=== PATIENT | male | born 1970 | race Caucasian/White ===

== ENCOUNTER 2017-07-03 00:15 | Emergency (ER) | payer MEDICARE, SELFPAY ==
[2016-10-01 10:17] VITALS: BMI 27.0
[2017-07-03 00:15] VITALS: BP 147/100; PULSE 78; RESP 15; TEMP 36.6; BMI 26.8
[2017-07-03 00:52] LABS: Absolute Lymphocyte Count 2.36 X10^3/ul (0.83-4.51); Absolute Neutrophil Count 4.3 X10^3/uL (2.0-7.7); Basophil# 0.03 X10^3/uL; Basophil% 0.4 % (0-1); Eosinophil# 0.32 X10^3/uL; Eosinophils% 4.1 % (0-5); Hematocrit 44.1 % (40-54); Hemoglobin 14.8 g/dl (13.0-16.5); Lymphocyte # 2.36 X10^3/ul (4.0); Lymphocyte % 30.1 % (19-41); Mean Corp Hgb Conc 33.6 g/gl (32-36); Mean Corpuscular Hgb 29.9 pg (27.0-32.0); Mean Corpuscular Volume 89.1 fL (80-94); Mean Platelet Vol. 9.4 fl (6.2-12.0); Monocyte# 0.82 X10^3/uL; Monocyte% 10.4 % (0-10); Neutrophil # 4.27 X10^3/uL (2.7-7.7); Neutrophil % 54.4 % (47-70); Platelet Count 221 K/mm3 (150-450); RBC Distribution Width CV 13.5 % (11.6-14.6); Red Blood Count 4.95 M/mm3 (4.6-6.2); White Blood Count 7.9 K/mm3 (4.4-11.0)
[2017-07-03 00:54] LABS: POSITIVE COUNT NO; POSITIVE DIFFERENTIAL NO; POSITIVE MORPHOLOGY NO
[2017-07-03 01:07] LABS: Anion Gap 7 (5-15); BUN 18 mg/dL (7-18); BUN/Creat Ratio 10.3 RATIO (10-20); Calcium,Total 8.8 mg/dL (8.5-10.1); Chloride 109 mmol/L (98-107); Creatinine, Serum 1.75 mg/dL (0.70-1.30); EST Glomerular Filtration Rate 44 mL/min (>60); Est Glom Filt Rate - Afr Amer 54 mL/min (>60); Estimated Creatinine Clearance 57.71 ml/min; Glucose 157 mg/dL (74-106); Potassium 3.7 mmol/L (3.5-5.1); Sodium Level 140 mmol/L (136-145)
[2017-07-03 01:10] LABS: Bacteria 0 SEEN /hpf (None Seen); Mucous, Urine 0 SEEN /hpf (<or=2+); Squamous Epithelial Cells - UA 0 SEEN /hpf (0-5)
[2017-07-03 01:16] LABS: Color, Urine Amber (Yellow); Glucose, Dipstick Normal (Normal); Ketone-Dipstick Negative (Negative); Leukocyte Esterase-Dipstick 500 /ul (Negative); Nitrite-Dipstick Negative (Negative); Occult Blood-Urine 250 /ul (Negative); Protein-Dipstick 100 mg/dl (Negative); Urine Bilirubin Dipstick Negative (Negative); Urine Clarity Sl. Cloudy (Clear); Urine Urobilinogen Normal (Normal)
[2017-07-03 01:23] LABS: Red Blood Cells-Urine 25-50 SEEN /hpf (0-5); White Blood Cells 5-10 SEEN /hpf (0-5)
--- NOTE | 2017-07-03 02:11 | ED.VISSUMM ---
- ER Visit Summary Date of Service: 07/03/17 Chief Complaint: Hematuria History of Present Illness: The patient is a 47 M who self cath secondary to neurogenic bladder presents because of hematuria. Hematuria was noted today. He denies any discomfort, burning or irritation when he caths himself. He denies any sweats or documented fever. He states he felt warm and believe he had a subjective fever. He denies bruising easily. He is on aspirin and Brilinta. He had a recent ST elevation [place]. 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 Enrrique Suarez. He denies any visual, ocular or auditory symptoms. He denies chest pain or palpitation. He denies shortness of breath, cough and dyspnea on exertion. He denies abdominal pain, nausea, vomiting or diarrhea. His only urologic symptom is hematuria. He denies any myalgias, arthralgias or neck pain. He does complain of back pain. Physical Examination: Vital signs remarkable blood pressure 147 100. HEENT exam is remarkable facial droop on the left. Heart is regular without murmur, gallop or rub. S1 and S2 are normal. Lungs are clear to auscultation with good movement of air bilaterally. Abdomen is soft and nontender with multiple well-healed surgical scars. He reports he has bilateral inguinal hernia. Did not appreciate any obvious hernia. Equivocal CVA tenderness on the left. states he has inflammation of his back. On my visualization the back there is no asymmetry or evidence of any abnormality. He has no inguinal lymphadenopathy or inguinal tenderness. He is alert oriented with a nonfocal neurologic exam Test Results: CBC normal creatinine 1.75 with a GFR 44. Baseline is 1.77 on April 07, 2017. Urinalysis reveals 250 blood on macro and 25-50 RBCs on micro without bacteria or pyuria. Emergency Department Course and Treatment: To evaluate gross hematuria a UA and blood work was obtained. This may be secondary to self-catheterization and the fact that he is on Brilinta and aspirin. Also need to evaluate for infection. Treatment Plan: Up with Dr. Duarte his urologist and return if clots, bright red blood or obstruction secondary to hematuria with clots Disposition: Discharged to home with Impression: Gross hematuria History of hypertension History of end-stage renal disease History of coronary disease on aspirin and Brilinta History of neurogenic bladder This note was generated with Pixateation software. It may contain incorrect words, spelling, and punctuation that were not noted in review of the chart prior to signing ED Disposition - Plan for ED Patient: Disposition: Home or Assisted Living Chief Complaint: Complaint Instructions: ED Hematuria Referrals: Brennan Ty MD [Primary Care Provider] - As Needed German Quiñones MD [STAFF PHYSICIAN] - 3-5 Days if not improving
--- NOTE | 2017-07-03 02:21 | ED.DCSUM_ITS ---
- ER Visit Summary Date of Service: 07/03/17 Chief Complaint: Hematuria History of Present Illness: The patient is a 47 M who self cath secondary to neurogenic bladder presents because of hematuria. Hematuria was noted today. He denies any discomfort, burning or irritation when he caths himself. He denies any sweats or documented fever. He states he felt warm and believe he had a subjective fever. He denies bruising easily. He is on aspirin and Brilinta. He had a recent ST elevation [place]. 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 Enrrique Suarez. He denies any visual, ocular or auditory symptoms. He denies chest pain or palpitation. He denies shortness of breath, cough and dyspnea on exertion. He denies abdominal pain, nausea, vomiting or diarrhea. His only urologic symptom is hematuria. He denies any myalgias, arthralgias or neck pain. He does complain of back pain. Physical Examination: Vital signs remarkable blood pressure 147 100. HEENT exam is remarkable facial droop on the left. Heart is regular without murmur, gallop or rub. S1 and S2 are normal. Lungs are clear to auscultation with good movement of air bilaterally. Abdomen is soft and nontender with multiple well-healed surgical scars. He reports he has bilateral inguinal hernia. Did not appreciate any obvious hernia. Equivocal CVA tenderness on the left. states he has inflammation of his back. On my visualization the back there is no asymmetry or evidence of any abnormality. He has no inguinal lymphadenopathy or inguinal tenderness. He is alert oriented with a nonfocal neurologic exam Test Results: CBC normal creatinine 1.75 with a GFR 44. Baseline is 1.77 on April 07, 2017. Urinalysis reveals 250 blood on macro and 25-50 RBCs on micro without bacteria or pyuria. Emergency Department Course and Treatment: To evaluate gross hematuria a UA and blood work was obtained. This may be secondary to self-catheterization and the fact that he is on Brilinta and aspirin. Also need to evaluate for infection. Treatment Plan: Up with Dr. Duarte his urologist and return if clots, bright red blood or obstruction secondary to hematuria with clots Disposition: Discharged to home with Impression: Gross hematuria History of hypertension History of end-stage renal disease History of coronary disease on aspirin and Brilinta History of neurogenic bladder This note was generated with IASO Pharmaation software. It may contain incorrect words, spelling, and punctuation that were not noted in review of the chart prior to signing ED Disposition - Plan for ED Patient: Disposition: Home or Assisted Living Chief Complaint: Complaint Instructions: ED Hematuria Referrals: Brennan Ty MD [Primary Care Provider] - As Needed German Quiñones MD [STAFF PHYSICIAN] - 3-5 Days if not improving
[2017-07-03 02:42] VITALS: BP 133/96; PULSE 67; RESP 17; O2SAT 97
--- NOTE | 2017-07-03 02:43 | ED.RN ---
PT GIVEN WRITTEN AND VERBAL DISCHARGE INSTRUCTIONS. PT VERBALIZES UNDERSTANDING. IV D/C AND COVERED WITH 2X2 GAUZE DRESSING. PT AMBULATORY HOME WITH SPOUSE. PT SIGNED RELEASE OF INFORMATION SHEET AND GOT A COPY OF LAB WORK. PT TO SEE DR. BAZAN WITHIN THE WEEK AND RETURN TO ER WITH ANY WORSENING SX OR ANY FURTHER EMERGENCIES.
== END 2017-07-03 02:45 | disposition home or self-care (01) ==
PROVIDERS: Emergency Provider Emergency Medicine; Family Provider Family Medicine; PCP Family Medicine
DX: R31.0 Gross hematuria (principal); I12.0 Hypertensive chronic kidney disease with stage 5 chronic kidney disease or end stage renal disease; N18.6 End stage renal disease; I25.10 Atherosclerotic heart disease of native coronary artery without angina pectoris; N31.9 Neuromuscular dysfunction of bladder, unspecified; E78.00 Pure hypercholesterolemia, unspecified; M10.9 Gout, unspecified; I25.2 Old myocardial infarction; Z72.0 Tobacco use; Z79.82 Long term (current) use of aspirin; K40.20 Bilateral inguinal hernia, without obstruction or gangrene, not specified as recurrent
CPT/HCPCS: 80048; 81001; 85025; 99284; P9612; A4216

== ENCOUNTER → 2017-07-07 17:38 | Outpatient (CLI) | payer SELFPAY ==
[2016-10-01 10:17] VITALS: BMI 27.0
--- NOTE | 2017-07-07 | CYSPIN_PTH ---
PATIENT: MARY TAYLOR LOC: [facility] U#:[id number] AGE/SX: 54/M ROOM: RE07/07/[address]: Dr. German Quiñones MD : 1970 BED: DIS: SPEC #: [id number] RECD: 07/07/17 13:00 STATUS: BRYSON SHARAN #: [id number] MULU: 07/07/17 00:[address]: German Quiñones DEPT: CYTOLOGY RECD BY: Milad Stark ENTERED: 07/08/17 11:23 SP TYPE: CYSPIN FL OTHR DR: Dr. Brennan Ty MD Tissues: Urine Procedures: Pap Stain (control) Special Stain Group II Cytospin Fluid HEADER OPERATION: Not noted PRE-OP DIAGNOSIS: Hematuria R31.9 TISSUE SUBMITTED: Urine for cytology DIAGNOSIS CYTOLOGY Urine for cytology (cytospin): Negative for malignant cells. Abundant bacterial colonies. Rare fungal organisms consistent with keon. AM:rg 07/09/17 COMMENT Clinical correlation is suggested. CYTOLOGY STUDY Slides are reviewed. CYTOLOGY GROSS Received is 80 ml of clear yellow fluid labeled with the patient's name and and designated per the requisition as urine. Submitted for cytology preparation. / 07/08/17 TC:5 CPT: 94644
[2017-07-07 17:40] LABS: Cytology, Body Fluid / CSF SEE PATHOLOGY REPORT
== END ==
PROVIDERS: Family Provider Family Medicine; PCP Family Medicine; Visit Provider Urology
DX: R31.9 Hematuria, unspecified (principal)
CPT/HCPCS: 88108; 88313

== ENCOUNTER 2017-07-10 15:12 | Emergency (ER) | payer MEDICARE, SELFPAY ==
[2016-10-01 10:17] VITALS: BMI 27.0
[2017-07-10 15:13] VITALS: BP 161/110; PULSE 90; RESP 25; TEMP 37.2; O2SAT 96; BMI 29.5
--- NOTE | 2017-07-10 15:20 | CT_ITS ---
STUDY: CT ABDOMEN AND PELVIS WITHOUT CONTRAST REASON FOR EXAM: Male, 47 years old. Bilateral flank pain. Recent cystoscopy neurogenic bladder RADIATION DOSAGE (If Supplied By Facility): CTDIvol = ( 11.95 ) mGy, DLP = ( 773.22 ) mGycm TECHNIQUE: Transaxial images were obtained from the dome of the diaphragm to the symphysis pubis without oral contrast, and without intravenous contrast. Sagittal and coronal images were reconstructed. Individualized dose optimization techniques were used for this CT. COMPARISON: April 27, 2016 FINDINGS: Lower lung atelectasis. The visualized portions of the heart are within normal limits. There is decreased attenuation of the liver consistent with steatosis. Normal gallbladder and extrahepatic biliary system. Normal spleen. Normal pancreas. Normal bilateral adrenal glands. There is mild cortical atrophy of the right kidney, consistent with chronic medical renal disease. There is mild cortical atrophy of the left kidney, consistent with chronic medical renal disease. There is increased density debris or small stones at the upper pole calyx. There is severe bilateral hydronephrosis. The ureters are dilated with postoperative change of the mid and distal ureters. There is displacement of the ureters with focal ileal conduit and/or reconstruction of the bladder. Normal visualized stomach. No dilated loops of small intestine. Postoperative change involving bowel loops on the right side Normal colon. There is non-visualization of the appendix. There is atherosclerotic calcification of the abdominal aorta, without a demonstrated aneurysm. Normal inferior vena cava. Normal retroperitoneum. There is a Bennett catheter in the urinary bladder. There is no free fluid in the abdomen or pelvis. Postoperative changes of the abdominal wall. Normal osseous structures. CT/Abdomen/Pelvis without Cont IMPRESSION: Severe bilateral hydroureteronephrosis with postoperative change including ileal conduit and/or reconstruction of the bladder. The ureters are dilated to the distal aspect at the level of postoperative change suspicious for stenosis at the anastomosis. Electronically Signed: Fidel Harper MD at 17:00 EST , Service support ,
--- NOTE | 2017-07-10 15:29 | ED.VISSUMM ---
- ER Visit Summary Date of Service: 07/10/17 Chief Complaint: [] Bilateral flank pain urinary retention History of Present Illness: The patient is a 47 M [] hx of neurogenic bladder childhood had diversion surgery as a child, had been that reversed, and then as an adult had additional bladder surgery involving his intestines he reports to expand his bladder volume. He normally straight caths himself without difficulty, he indicates he had a cystoscopy by Dr. Reece his urologist this morning for evaluation of dysuria that procedure was uncomplicated and did not explain the hematuria it was decided his hematuria was likely related to the use of Brilinta. He is on Brilinta related to an [place]. When he went home he felt the urge to void he straight cath himself nothing came out he did a Valsalva type push maneuver to force the urine out and began experiencing bilateral flank pain he did not have any urine come out, he has not voided urine since the cystoscopy otherwise before all the above he was not ill or having pain Physical Examination: [] Holding both flanks walking around room complaining of pain head neck chest unremarkable some vague pain to the bilateral flanks he indicates his bladder seems distended there is some fullness in suprapubic area he has an old surgical scars to the anterior abdominal region, he is awake alert again walking around the room Test Results: [] Emergency Department Course and Treatment: [] As if he needs to void we will provide IV pain management fluids Bennett catheter irrigation screening labs The patient's Bennett catheter was placed without difficulty was productive of no urine was irrigated there was no blood, his labs reveal a creatinine of 2.0 creatinine 1 week ago was 1.75 CT scan report is rather complicated please see that report, it shows bilateral hydronephrosis severe hydroureter Bennett catheter is in the bladder there appears to be stenosis at the insertion of the transplanted ureters With his urologist Dr. Reece, coming in to see the patient but believes the patient would need to be transferred emergently to [facility] to have bilateral percutaneous drainage of both kidneys, as discussed with the patient and he agrees and understands, further we have called [facility] to make arrangements for transfer. Dr. Reece, his urologist did come in and see him spoke with the patient, afterwards he recommends that the patient be transferred to [facility] due to the possibility of the ureteral stenosis the potential need for surgery. I spoke with [facility] urology Dr. Chen time I discussed the case and all details, who accepted him in transfer Treatment Plan: [] Disposition: [] Transfer to [facility] Impression: [] BiLateral hydronephrosis with urinary obstruction elevated creatinine transfer to [facility] urology for definitive treatment This note was generated with Mashable dictation software. It may contain incorrect words, spelling, and punctuation that were not noted in review of the chart prior to signing ED Disposition - Plan for ED Patient: Chief Complaint: Flank Pain Referrals: Brennan Ty MD [Primary Care Provider] -
--- NOTE | 2017-07-10 15:32 | ED.DCSUM_ITS ---
- ER Visit Summary Date of Service: 07/10/17 Chief Complaint: [] Bilateral flank pain urinary retention History of Present Illness: The patient is a 47 M [] hx of neurogenic bladder childhood had diversion surgery as a child, had been that reversed, and then as an adult had additional bladder surgery involving his intestines he reports to expand his bladder volume. He normally straight caths himself without difficulty, he indicates he had a cystoscopy by Dr. Reece his urologist this morning for evaluation of dysuria that procedure was uncomplicated and did not explain the hematuria it was decided his hematuria was likely related to the use of Brilinta. He is on Brilinta related to an [place]. When he went home he felt the urge to void he straight cath himself nothing came out he did a Valsalva type push maneuver to force the urine out and began experiencing bilateral flank pain he did not have any urine come out, he has not voided urine since the cystoscopy otherwise before all the above he was not ill or having pain Physical Examination: [] Holding both flanks walking around room complaining of pain head neck chest unremarkable some vague pain to the bilateral flanks he indicates his bladder seems distended there is some fullness in suprapubic area he has an old surgical scars to the anterior abdominal region, he is awake alert again walking around the room Test Results: [] Emergency Department Course and Treatment: [] As if he needs to void we will provide IV pain management fluids Bennett catheter irrigation screening labs The patient's Bennett catheter was placed without difficulty was productive of no urine was irrigated there was no blood, his labs reveal a creatinine of 2.0 creatinine 1 week ago was 1.75 CT scan report is rather complicated please see that report, it shows bilateral hydronephrosis severe hydroureter Bennett catheter is in the bladder there appears to be stenosis at the insertion of the transplanted ureters With his urologist Dr. Reece, coming in to see the patient but believes the patient would need to be transferred emergently to [facility] to have bilateral percutaneous drainage of both kidneys, as discussed with the patient and he agrees and understands, further we have called [facility] to make arrangements for transfer. Dr. Reece, his urologist did come in and see him spoke with the patient, afterwards he recommends that the patient be transferred to [facility] due to the possibility of the ureteral stenosis the potential need for surgery. I spoke with [facility] urology Dr. Chen time I discussed the case and all details, who accepted him in transfer Treatment Plan: [] Disposition: [] Transfer to [facility] Impression: [] BiLateral hydronephrosis with urinary obstruction elevated creatinine transfer to [facility] urology for definitive treatment This note was generated with Fablistic dictation software. It may contain incorrect words, spelling, and punctuation that were not noted in review of the chart prior to signing ED Disposition - Plan for ED Patient: Chief Complaint: Flank Pain Referrals: Brennan Ty MD [Primary Care Provider] -
[2017-07-10] MEDS: 0.9% Normal Saline 1,000 ML 250 ML IV (15:37)
[2017-07-10] MEDS: Ondansetron 4 MG/2 ML Vial IV (15:37)
[2017-07-10 15:54] LABS: Absolute Lymphocyte Count 2.69 X10^3/ul (0.83-4.51); Absolute Neutrophil Count 4.9 X10^3/uL (2.0-7.7); Basophil# 0.04 X10^3/uL; Basophil% 0.4 % (0-1); Eosinophil# 0.36 X10^3/uL; Hematocrit 46.2 % (40-54); Hemoglobin 15.4 g/dl (13.0-16.5); Lymphocyte # 2.69 X10^3/ul (4.0); Lymphocyte % 30.1 % (19-41); Mean Corp Hgb Conc 33.3 g/gl (32-36); Mean Corpuscular Hgb 30.2 pg (27.0-32.0); Mean Corpuscular Volume 90.6 fL (80-94); Mean Platelet Vol. 9.5 fl (6.2-12.0); Monocyte# 0.88 X10^3/uL; Monocyte% 9.9 % (0-10); Neutrophil # 4.91 X10^3/uL (2.7-7.7); Platelet Count 243 K/mm3 (150-450); RBC Distribution Width CV 13.3 % (11.6-14.6); RBC Distribution Width SD 44.2 fl (35.1-43.9); White Blood Count 8.9 K/mm3 (4.4-11.0)
[2017-07-10 15:55] LABS: POSITIVE COUNT NO; POSITIVE DIFFERENTIAL NO; POSITIVE MORPHOLOGY NO
[2017-07-10 16:01] LABS: Anion Gap 5 (5-15); BUN 21 mg/dL (7-18); BUN/Creat Ratio 10.2 RATIO (10-20); Calcium,Total 9.1 mg/dL (8.5-10.1); Chloride 104 mmol/L (98-107); Creatinine, Serum 2.05 mg/dL (0.70-1.30); EST Glomerular Filtration Rate 37 mL/min (>60); Est Glom Filt Rate - Afr Amer 45 mL/min (>60); Estimated Creatinine Clearance 49.26 ml/min; Glucose 102 mg/dL (74-106); Potassium 4.1 mmol/L (3.5-5.1); Sodium Level 140 mmol/L (136-145)
[2017-07-10 16:42] VITALS: BP 165/95; PULSE 65; RESP 16; O2SAT 98
--- NOTE | 2017-07-10 17:00 | ED.RN ---
[address] WAY BELLA PLACED PER MD ORDER, NO URINE RETURN. FLUSHED WITH 250 ML STERILE WATER, 250 ML RETURN IN BELLA BAG WITH SEDIMENT AND SMALL BLOOD CLOTS. PT STATES CATHETER FEELS LIKE IT'S IN THE RIGHT PLACE. BLADDER SCANNED FOR 85 ML URINE. LAST URINE OUTPUT AT APPROX 1200. MD MADE AWARE OF FINDINGS.
[2017-07-10 17:30] VITALS: BP 156/98; PULSE 69; RESP 16; O2SAT 98
--- NOTE | 2017-07-10 17:59 | ED.RN ---
PER DR MARTINEZ [facility] WAS CALLED TO TRANSFER PT. SPOKE WITH MEGAN AND HE WILL BE HAVING THE DOCTOR CALL US BACK; DEMOGRAPHIC SHEET WAS FAXED
--- NOTE | 2017-07-10 18:12 | ED.RN ---
PER DR MARTINEZ; PT WAS ACCEPTED TO THE [facility] BY DOCTOR LOPEZ; WE ARE WAITING ON A BED ASSIGNMENT
[2017-07-10 18:26] VITALS: BP 157/91; PULSE 78; RESP 16; O2SAT 98
[2017-07-10 19:02] VITALS: BP 156/74; PULSE 81; RESP 16; O2SAT 97
[2017-07-10 19:03] VITALS: BP 152/81; PULSE 78; RESP 16; O2SAT 97
== END 2017-07-10 20:45 | disposition short-term general hospital (02) ==
PROVIDERS: Emergency Provider Emergency Medicine; Family Provider Family Medicine; PCP Family Medicine
DX: N13.1 Hydronephrosis with ureteral stricture, not elsewhere classified (principal); I25.2 Old myocardial infarction; N31.9 Neuromuscular dysfunction of bladder, unspecified
CPT/HCPCS: 51702; 74176; 80048; 85025; 87086; 87088; 96361; 96374; 96375; 96376; 99285; J7030; A4216; J2405

== ENCOUNTER → 2017-07-10 16:49 | Outpatient (CLI) | payer MEDICARE, SELFPAY ==
[2016-10-01 10:17] VITALS: BMI 27.0
== END ==
PROVIDERS: Family Provider Family Medicine; PCP Family Medicine; Visit Provider Urology
DX: R31.0 Gross hematuria (principal)
CPT/HCPCS: 87086; 87088

== ENCOUNTER 2017-07-16 23:10 | Emergency (ER) | payer MEDICARE, SELFPAY ==
[2016-10-01 10:17] VITALS: BMI 27.0
[2017-07-16 23:12] VITALS: BP 168/100; PULSE 68; RESP 18; TEMP 37.3; O2SAT 97; BMI 29.5
--- NOTE | 2017-07-17 00:13 | ED.VISSUMM ---
- ER Visit Summary Date of Service: 07/17/17 Chief Complaint: Bleeding tunneled catheter History of Present Illness: The patient is a 47 M presenting for evaluation secondary to bleeding from his tunnel catheter. Patient was recently admitted to this facility, had renal failure severe enough that he was transferred to [place], and was actually just discharged today. Patient states prior to discharge he had a tunneled catheter placed in his right chest secondary to staph bacteremia and need for continued antibiotic treatment. Patient states that when he came home today he started to notice that he was having some bleeding. Patient does state that he is on Brilinta. He reports only postprocedural pain. Review of systems otherwise negative. Physical Examination: Vital signs within normal limits. Physical exam remarkable for examination of the patient's right anterior chest. There is a tunnel catheter placed that is sutured in place. There is a mild amount of capillary bleeding coming from the insertion point of the catheter on the patient's chest. Minimal amount of bruising and tenderness to palpation in the area. Test Results: None indicated Emergency Department Course and Treatment: Patient presented with bleeding from his tunneled catheter site. This is a mild amount of bleeding, I am not concerned for significant venous bleed this appears to be more of a capillary type bleed. Bandage was replaced and the patient's chest was actually wrapped with an Gregorio bandage to apply some pressure over the area. Patient had better hemostasis and actually a little bit better pain control with this. Patient was discharged with continued follow-up. Disposition: Discharge Impression: 1. Postprocedural bleeding This note was generated with Curriculet dictation software. It may contain incorrect words, spelling, and punctuation that were not noted in review of the chart prior to signing ED Disposition - Plan for ED Patient: Disposition: Home or Assisted Living Chief Complaint: Wound Diagnosis: Bleeding at insertion site Instructions: ED Wound Check Post Op Bleeding Referrals: Brennan Ty MD [Primary Care Provider] - As Needed
[2017-07-17 00:21] VITALS: RESP 18
== END 2017-07-17 00:24 | disposition home or self-care (01) ==
PROVIDERS: Emergency Provider Emergency Medicine; Family Provider Family Medicine; PCP Family Medicine
DX: I97.618 Postprocedural hemorrhage of a circulatory system organ or structure following other circulatory system procedure (principal); Y84.6 Urinary catheterization as the cause of abnormal reaction of the patient, or of later complication, without mention of misadventure at the time of the procedure; R78.81 Bacteremia; B95.8 Unspecified staphylococcus as the cause of diseases classified elsewhere
CPT/HCPCS: 99284

== ENCOUNTER → 2017-07-17 14:22 | Outpatient (CLI) | payer MEDICARE, SELFPAY ==
[2016-10-01 10:17] VITALS: BMI 27.0
--- NOTE | 2017-07-17 14:45 | NURSING ---
PT ARRIVED TO [facility] W/PICC IN PLACE TO RIGHT SUBCLAVIAN. NOTED SLOW OOZING OF BLOOD FROM PICC INSERTION SITE. PT REPORTS HE WAS IN ED LAST EVENING D/T BLEEDING FROM INSERTION SITE AND THAT IT STARTED BLEEDING AGAIN THIS AM. PT ALSO STATED HIS [facility] HEALTH [facility] AND INSTRUCTED HIM TO COME TO HOSPITAL. PICC INTACT. FLUSHES EASILY AND WITH GREAT BLOOD RETURN. SUTURES INTACT. PRESSURE HELD TO INSERTION SITE X 30 MIN. NO FURTHER BLEEDING OR OOZING NOTED. STERILE DSG CHANGE DONE ORDERED. PER RN HENRY DAMIAN, DR WALLER WAS NOTIFIED OF ISSUES OF BLEEDING/ OOZING FROM PICC INSERTION SITE W/NO FURTHER BLEEDING AFTER 30 MIN AND THAT ABSORBABLE HEMOSTAT WAS APPLIED W/STERILE DSG CHANGE. NO FURTHER ORDERS RECEIVED. DR SPENCER WAS ALSO NOTIFIED THAT PT WAS IN ED LAST PM D/T OOZING OF BLOOD FROM PICC INSERTION SITE AND THAT IT STARTED BLEEDING AGAIN THIS AM, THAT ABD PADS AND GAUZE WERE SATURATED PER HOME HEALTH NURSE AND THAT PRESSURE WAS HELD X 30 MIN BY THIS RN AND NO FURTHER BLEEDING OR OOZING NOTED. DR SPENCER GAVE ORDER TO THIS RN TO INSTRUCT PT TO HOLD BRILINTA X 5 DAYS AND THEN RESUME LONG NO FURTHER BLEEDING OR OOZING FROM PICC INSERTION SITE. THIS RN ASKED DR SPENCER IF HE WOULD LIKE ANY LABS DRAWN ON PT AND HE STATED DID NOT WANT ANY LABS DRAWN AT THIS TIME. PT INSTRUCTED TO HOLD THE BRILINTA X [address] SPENCER ORDER AND TO THEN RESUME LONG NO FURTHER BLEEDING OR OOZING NOTED. PT ALSO MADE AWARE TO FOLLOW UP W/DR SPENCER. PT AND VOICED UNDERSTANDING. THIS NURSE ALSO INSTRUCTED PT AND FOR PT TO GO TO ED IF HAS ANY FURTHER ISSUES W/BLEEDING OR OOZING FROM PICC INSERTION SITE. PT AND VOICED UNDERSTANDING. ATTENTIVE HOME HEALTH NURSE, ASIYA, NOTIFIED OF ALL OF THE ABOVE.
--- NOTE | 2017-07-17 20:08 | NURSING ---
PRINTED FACE SHEET FOR IVT.
== END ==
PROVIDERS: Family Provider Family Medicine; PCP Family Medicine; Visit Provider Internal Medicine Infectious Disease
DX: Z45.2 Encounter for adjustment and management of vascular access device (principal)
CPT/HCPCS: 99211; A4216; G0463

== ENCOUNTER → 2017-07-21 14:03 | Outpatient (CLI) | payer MEDICARE, SELFPAY ==
[2016-10-01 10:17] VITALS: BMI 27.0
[2017-07-21 15:53] LABS: Absolute Lymphocyte Count 1.68 X10^3/ul (0.83-4.51); Basophil# 0.05 X10^3/uL; Basophil% 0.5 % (0-1); Eosinophil# 0.36 X10^3/uL; Eosinophils% 3.7 % (0-5); Hematocrit 44.5 % (40-54); Hemoglobin 14.1 g/dl (13.0-16.5); Lymphocyte # 1.68 X10^3/ul (4.0); Lymphocyte % 17.1 % (19-41); Mean Corp Hgb Conc 31.7 g/gl (32-36); Mean Corpuscular Hgb 29.6 pg (27.0-32.0); Mean Corpuscular Volume 93.3 fL (80-94); Mean Platelet Vol. 9.4 fl (6.2-12.0); Monocyte# 0.54 X10^3/uL; Monocyte% 5.5 % (0-10); Neutrophil # 7.01 X10^3/uL (2.7-7.7); Neutrophil % 71.4 % (47-70); Platelet Count 332 K/mm3 (150-450); RBC Distribution Width CV 13.6 % (11.6-14.6); Red Blood Count 4.77 M/mm3 (4.6-6.2); White Blood Count 9.8 K/mm3 (4.4-11.0)
[2017-07-21 15:54] LABS: POSITIVE COUNT NO; POSITIVE DIFFERENTIAL NO; POSITIVE MORPHOLOGY NO
[2017-07-21 16:02] LABS: Creatinine, Serum 1.86 mg/dL (0.70-1.30); EST Glomerular Filtration Rate 41 mL/min (>60); Est Glom Filt Rate - Afr Amer 50 mL/min (>60)
[2017-07-21 16:03] LABS: Vancomycin, Trough Level 11.3 ug/mL (5.0-15.0)
== END ==
LOC: LAB 14:06 → LABSPEC 14:07
PROVIDERS: Family Provider Family Medicine; PCP Family Medicine; Visit Provider Internal Medicine Infectious Disease
DX: R69 Illness, unspecified (principal)
CPT/HCPCS: 80202; 82565; 85025

== ENCOUNTER → 2017-07-29 19:19 | Outpatient (CLI) | payer MEDICARE, SELFPAY ==
[2016-10-01 10:17] VITALS: BMI 27.0
== END ==
PROVIDERS: Family Provider Family Medicine; PCP Family Medicine; Visit Provider Internal Medicine Infectious Disease
DX: A41.9 Sepsis, unspecified organism (principal)
CPT/HCPCS: 87040

== ENCOUNTER 2017-08-31 00:33 | Observation (INO) | payer MEDICARE, SELFPAY ==
[2016-10-01 10:17] VITALS: BMI 27.0
[2017-08-31] VITALS (17 sets, daily range): BP systolic 112–140; BP diastolic 68–96; PULSE 52–71; RESP 9–18; TEMP 35.9–37.2; O2SAT 94–100; BMI 30.9; BMI 28.5
--- NOTE | 2017-08-31 00:40 | CT_ITS ---
STUDY: CT BRAIN WITHOUT CONTRAST REASON FOR EXAM: Male, 47 years old. Recent syncope with closed head injury and possible loss of consciousness. RADIATION DOSAGE (If Supplied By Facility): CTDIvol = ( 44.99 ) mGy, DLP = ( 883.29 ) mGycm TECHNIQUE: Transaxial CT imaging of the brain was performed without administration of intravenous contrast material. Multiplanar reformations are submitted for interpretation. Individualized dose optimization techniques were used for this CT. COMPARISON: MRI of the brain dated June 07, 2015. FINDINGS: Appears to be soft tissue contusion adjacent to left lateral frontal and temporal craniotomy. Normal calvarium. Normal size ventricles and extra-axial spaces for the patient's age. Normal white matter tracts of the cerebral hemispheres. Normal basal ganglia and thalami. Normal brainstem. Normal cerebellum. There is no intracranial hemorrhage. There are no findings of an acute ischemic infarction. Normal visualized paranasal sinuses. CT/Brain/Head without Contrast IMPRESSION: 1. No CT evidence of acute intracranial hemorrhage. 2. Left-sided scalp contusion. Electronically Signed: Keara Gambino MD at 1:36 EDT , Service support ,
--- NOTE | 2017-08-31 00:40 | EKG12_ITS ---
Test Reason : CP Blood Pressure : / mmHG Vent. Rate : 062 BPM Atrial Rate : 062 BPM P-R Int : 154 ms QRS Dur : 084 ms QT Int : 386 ms P-R-T Axes : 039 076 058 degrees QTc Int : 391 ms Normal sinus rhythm Normal ECG Confirmed by MOISES ROBERTS, MARGIE ([id number]), international editorial producer BANDAR CARSON ([id number]) on 09/02/2017 2:07:56 PM Referred By: MILA Confirmed By:MARGIE DE LEON MD
--- NOTE | 2017-08-31 00:40 | CT_ITS ---
STUDY: CT CERVICAL SPINE WITHOUT CONTRAST REASON FOR EXAM: Male, 47 years old. Recent syncope and closed head injury. Possible loss of consciousness. RADIATION DOSAGE (If Supplied By Facility): CTDIvol = ( 27.27 ) mGy, DLP = ( 645.41 ) mGycm TECHNIQUE: High resolution transaxial imaging was performed without contrast material. Sagittal and coronal images were reconstructed. Individualized dose optimization techniques were used for this CT. COMPARISON: Prior comparable comparison studies are not available for review at this time. FINDINGS: Normal craniovertebral junction. There are degenerative changes of the anterior atlantoaxial articulation. Normal odontoid process. Normal cervical lordosis. Normal vertebral bodies and posterior osseous elements. C2-3: Normal endplates. Normal disc height and morphology. Normal central canal and intervertebral neuroforamina. C3-4: Normal endplates. Normal disc height and morphology. Normal central canal and intervertebral neuroforamina. C4-5: Normal endplates. Normal disc height and morphology. Normal central canal and intervertebral neuroforamina. C5-6: Normal endplates. Normal disc height and morphology. Normal central canal and intervertebral neuroforamina. C6-7: Normal endplates. Normal disc height and morphology. Normal central canal and intervertebral neuroforamina. C7-T1: Normal endplates. Normal disc height and morphology. Normal central canal and intervertebral neuroforamina. Normal visualized soft tissue structures. CT/Spine Cervical without Contras IMPRESSION: No CT evidence of acute compression or displaced fracture of the cervical spine. Electronically Signed: Keara Gambino MD at 1:29 EDT , Service support ,
--- NOTE | 2017-08-31 00:45 | CT_ITS ---
STUDY: CT ABDOMEN AND PELVIS WITHOUT CONTRAST REASON FOR EXAM: Male, 47 years old. Patient was found unresponsive after syncope and closed head injury. RADIATION DOSAGE (If Supplied By Facility): CTDIvol = ( 21.37 ) mGy, DLP = ( 1158.77 ) mGycm TECHNIQUE: Transaxial images were obtained from the dome of the diaphragm to the symphysis pubis without oral contrast, and without intravenous contrast. Sagittal and coronal images were reconstructed. Individualized dose optimization techniques were used for this CT. COMPARISON: CT of the abdomen and pelvis dated April 27, 2016 and July 10, 2017. FINDINGS: There is some mild pleural thickening on the left major fissure. Lung bases otherwise appear to be clear. The visualized portions of the heart are within normal limits. There is decreased attenuation of the liver consistent with steatosis. There is increased (more normal) attenuation within the liver adjacent to the gallbladder fossa and near the edis hepatis. This may represent focal sparing of fatty infiltration Normal gallbladder and extrahepatic biliary system. Normal spleen. Normal pancreas. Normal bilateral adrenal glands. There is mild cortical atrophy of the right kidney, consistent with chronic medical renal disease. There is dilatation of the renal collecting systems, similar to previous CTs. The proximal ureters appear to be conjoined proximally with a single ureter probably ends entering the ileal conduit. Left kidney is larger than the right kidney. Normal visualized stomach. There is no evidence for dilated bowel, ascites or pneumoperitoneum. The small bowel has a grossly normal appearance. Stool is visible throughout the colon with scattered colonic diverticula. Patient has had partial right-sided colon resection where surgical sutures are visible within the proximal ascending colon. There is non-visualization of the appendix. There is minimal atherosclerotic calcification of the abdominal aorta, without a demonstrated aneurysm. Normal inferior vena cava. Normal retroperitoneum. There appears to be bowel located cephalad to the the urinary bladder possibly related to ureteral-ileoostomy There appear to be bilateral inguinal hernias containing fat. Normal osseous structures. CT/Abdomen/Pelvis without Cont IMPRESSION: 1. Hepatic steatosis with focal sparing near the gallbladder fossa and near the edis hepatis. 2. Status post partial right-sided colon resection. 3. Apparent ureteral diversion with ileal conduit. 4. Unchanged appearance to dilatation of bilateral renal collecting systems. Electronically Signed: Keara Gambino MD at 1:51 EDT , Service support ,
[2017-08-31 00:49] LABS: Absolute Neutrophil Count 6.7 X10^3/uL (2.0-7.7); Basophil# 0.04 X10^3/uL; Basophil% 0.4 % (0-1); Eosinophil# 0.11 X10^3/uL; Eosinophils% 1.1 % (0-5); Hematocrit 41.2 % (40-54); Hemoglobin 13.3 g/dl (13.0-16.5); Lymphocyte % 22.8 % (19-41); Mean Corp Hgb Conc 32.3 g/gl (32-36); Mean Corpuscular Hgb 29.3 pg (27.0-32.0); Mean Corpuscular Volume 90.7 fL (80-94); Mean Platelet Vol. 8.9 fl (6.2-12.0); Monocyte# 0.62 X10^3/uL; Monocyte% 6.4 % (0-10); Neutrophil # 6.65 X10^3/uL (2.7-7.7); Neutrophil % 68.8 % (47-70); Platelet Count 245 K/mm3 (150-450); RBC Distribution Width CV 13.8 % (11.6-14.6); RBC Distribution Width SD 45.1 fl (35.1-43.9); Red Blood Count 4.54 M/mm3 (4.6-6.2); White Blood Count 9.7 K/mm3 (4.4-11.0)
--- NOTE | 2017-08-31 00:50 | RAD_ITS ---
STUDY: X-RAY CHEST REASON FOR EXAM: Male, 47 years old. Chest pain after fall. TECHNIQUE: Single AP portable view of the chest. COMPARISON: April 07, 2017. FINDINGS: Cardiac monitoring leads are present. The lungs are expanded. There is interstitial thickening visible throughout both lungs, similar to previous radiograph. There is no demonstrated pleural abnormality. Normal size heart. Normal mediastinum and jayde. Normal visualized pulmonary arteries. There is atherosclerotic tortuosity of the aortic arch and descending thoracic aorta. Normal visualized thoracic spine. Normal visualized ribs, clavicles, and shoulders. There is no demonstrated abnormality of the visualized soft tissue structures of the upper abdomen. RAD/Chest 1 View (Portable) IMPRESSION: No radiographic evidence of acute cardiopulmonary disease. Electronically Signed: Keara Gambino MD at 1:26 EDT , Service support ,
[2017-08-31 00:51] LABS: POSITIVE COUNT NO; POSITIVE DIFFERENTIAL NO; POSITIVE MORPHOLOGY NO
[2017-08-31 01:08] LABS: Anion Gap 6 (5-15); BUN 30 mg/dL (7-18); Calcium,Total 8.6 mg/dL (8.5-10.1); Chloride 108 mmol/L (98-107); Creatinine, Serum 2.15 mg/dL (0.70-1.30); EST Glomerular Filtration Rate 35 mL/min (>60); Est Glom Filt Rate - Afr Amer 42 mL/min (>60); Estimated Creatinine Clearance 46.97 ml/min; Glucose 183 mg/dL (74-106); Potassium 4.2 mmol/L (3.5-5.1); Sodium Level 139 mmol/L (136-145)
--- NOTE | 2017-08-31 02:41 | ED.VISSUMM ---
- ER Visit Summary Date of Service: 08/31/17 Chief Complaint: Unresponsive History of Present Illness: The patient is a 47 M presenting for evaluation secondary to being unresponsive. Patient has an underlying history of chronic kidney disease, coronary artery disease with [place] last year. Hypertension and high cholesterol. Patient states that he had a sudden onset of left-sided flank pain. He went into urinate. He has to self catheterize, he states that when he was attempting to do this he became profusely diaphoretic and passed out. states that the patient fell hit his head, and after he struck his head he had tonic-clonic shaking and loss of control of his bladder. Afterwards the patient had decreased responsiveness, paramedics arrived and brought the patient immediately to the hospital. Patient has no prior history of seizures. He is on antiplatelet medication secondary to his coronary disease. Physical Examination: Primary survey: Airway is patent, breath sounds equal bilateral, central peripheral pulses 2+ and symmetric, GCS 14 out of 15. Vitals within normal limits. Secondary survey: General: Well-nourished well-developed no acute distress Head: Normocephalic atraumatic Eyes: PERRLA, EOMI ENT: TMs clear no hemotympanum no drainage Neck: Nontender full range of motion, no step-offs noted Heart: Regular rate and rhythm no murmurs Lungs: Respirations nondistressed, lung sounds clear to auscultation bilaterally, chest nontender, normal chest excursion bilaterally Abdomen: Soft nontender nondistended normal bowel sounds no palpable abdominal masses, well-healed abdominal surgical scars noted Back: Nontender no step-offs noted Extremities: Nontender: Active full range of motion ?4 Skin: Normal color no trauma Neuro: Alert and oriented ?2, GCS 14 out of 15, no lateralizing neurological deficits. Test Results: Sinus rhythm at [address] segments normal T waves no evidence of acute ischemia or arrhythmia unchanged from prior EKG. CBC shows no acute pathology. Chemistry shows acute kidney injury with creatinine 2.1, troponin negative. Chest x-ray shows chronic changes. CT brain and cervical spine negative. CT abdomen and pelvis shows chronic changes consistent with patient's surgical history Emergency Department Course and Treatment: Patient presented secondary to an unresponsive episode with shaking and confusion that followed. Patient's EMS EKG was concerning for the possibility of ST elevation in the inferior leads, but his EKG upon arrival to the emergency department shows no such changes and the patient does not complaining of any chest pain. I immediately discussed patient's case with Dr. Suarez, and we are in agreement that given the patient's normalization of his EKG and the fact that he is no longer complaining of chest pain this does not need to be treated like a STEMI. Patient was evaluated secondary to the syncopal episode and apparent seizure. Imaging was found to be negative, the patient was found to have acute kidney injury and he was given a liter normal saline and a cervical collar was cleared. This point it seems like the patient had a vagal event, passed out, struck his head hard enough that he had a seizure with a full postictal episode. Given the patient's underlying cardiac disease I believe that he still requires admission for observation due to his syncope. Patient will be admitted under the hospitalist. Disposition: Admission Impression: 1. Vasovagal syncope 2. Acute kidney injury 3. Seizure Critical care time 45 minutes This note was generated with [employer] dictation software. It may contain incorrect words, spelling, and punctuation that were not noted in review of the chart prior to signing ED Disposition - Plan for ED Patient: Chief Complaint: Chest Pain Referrals: Brennan Ty MD [Primary Care Provider] -
--- NOTE | 2017-08-31 02:45 | ED.DCSUM_ITS ---
- ER Visit Summary Date of Service: 08/31/17 Chief Complaint: Unresponsive History of Present Illness: The patient is a 47 M presenting for evaluation secondary to being unresponsive. Patient has an underlying history of chronic kidney disease, coronary artery disease with [place] last year. Hypertension and high cholesterol. Patient states that he had a sudden onset of left-sided flank pain. He went into urinate. He has to self catheterize, he states that when he was attempting to do this he became profusely diaphoretic and passed out. states that the patient fell hit his head, and after he struck his head he had tonic-clonic shaking and loss of control of his bladder. Afterwards the patient had decreased responsiveness, paramedics arrived and brought the patient immediately to the hospital. Patient has no prior history of seizures. He is on antiplatelet medication secondary to his coronary disease. Physical Examination: Primary survey: Airway is patent, breath sounds equal bilateral, central peripheral pulses 2+ and symmetric, GCS 14 out of 15. Vitals within normal limits. Secondary survey: General: Well-nourished well-developed no acute distress Head: Normocephalic atraumatic Eyes: PERRLA, EOMI ENT: TMs clear no hemotympanum no drainage Neck: Nontender full range of motion, no step-offs noted Heart: Regular rate and rhythm no murmurs Lungs: Respirations nondistressed, lung sounds clear to auscultation bilaterally , chest nontender, normal chest excursion bilaterally Abdomen: Soft nontender nondistended normal bowel sounds no palpable abdominal masses, well-healed abdominal surgical scars noted Back: Nontender no step-offs noted Extremities: Nontender: Active full range of motion ?4 Skin: Normal color no trauma Neuro: Alert and oriented ?2, GCS 14 out of 15, no lateralizing neurological deficits. Test Results: Sinus rhythm at [address] segments normal T waves no evidence of acute ischemia or arrhythmia unchanged from prior EKG. CBC shows no acute pathology. Chemistry shows acute kidney injury with creatinine 2.1, troponin negative. Chest x-ray shows chronic changes. CT brain and cervical spine negative. CT abdomen and pelvis shows chronic changes consistent with patient's surgical history Emergency Department Course and Treatment: Patient presented secondary to an unresponsive episode with shaking and confusion that followed. Patient's EMS EKG was concerning for the possibility of ST elevation in the inferior leads, but his EKG upon arrival to the emergency department shows no such changes and the patient does not complaining of any chest pain. I immediately discussed patient's case with Dr. Suarez, and we are in agreement that given the patient' s normalization of his EKG and the fact that he is no longer complaining of chest pain this does not need to be treated like a STEMI. Patient was evaluated secondary to the syncopal episode and apparent seizure. Imaging was found to be negative, the patient was found to have acute kidney injury and he was given a liter normal saline and a cervical collar was cleared. This point it seems like the patient had a vagal event, passed out, struck his head hard enough that he had a seizure with a full postictal episode. Given the patient' s underlying cardiac disease I believe that he still requires admission for observation due to his syncope. Patient will be admitted under the hospitalist. Disposition: Admission Impression: 1. Vasovagal syncope 2. Acute kidney injury 3. Seizure Critical care time 45 minutes This note was generated with [employer] dictation software. It may contain incorrect words, spelling, and punctuation that were not noted in review of the chart prior to signing ED Disposition - Plan for ED Patient: Chief Complaint: Chest Pain Referrals: Brennan Ty MD [Primary Care Provider] -
[2017-08-31] MEDS: 0.9% Normal Saline 1,000 ML 999 ML IV (02:53)
[2017-08-31] MEDS: Aspirin 81 MG TAB.CHEW 324 MG PO (02:53)
--- NOTE | 2017-08-31 02:56 | PCM.HP.STD ---
Problem List (1) Syncope and collapse Status: Acute (2) Atypical chest pain Status: Acute (3) Chronic kidney disease, stage 3 Status: Chronic (4) History of coronary artery stent placement Status: Chronic Comment: PCI-HECTOR-Mid Cx (5) Atherosclerosis of coronary artery of [place] heart without angina pectoris Status: Chronic Comment: PCI-HECTOR-Mid Cx 09/29/16 (6) Sleep-disordered breathing Status: Chronic (7) NSVT (nonsustained ventricular tachycardia) Status: Chronic (8) Smoking addiction Status: Chronic (9) Hypertension Status: Chronic (10) Hyperlipidemia Status: Chronic (11) Osteoarthritis Status: Chronic (12) Spinal stenosis of lumbar region Status: Chronic (13) Chronic radicular lumbar pain Status: Chronic (14) STEMI (ST elevation myocardial infarction) Status: Chronic (15) Sciatica Status: Chronic (16) Acute kidney injury on CKD stage III Status: Acute History of Present Illness Date of Admission: 08/31/17 Chief Complaint: Syncope and collapse and chest pain today The patient is a 47 year old M with multiple comorbidities including history of NSTEMI status post PCI in mid circumflex and NSVT in September 2016 was brought in by ambulance after he passed out and had transient chest pain. Patient has been feeling feverish and chills for 1 day. While sitting in the bathroom for self-catheterization, he suddenly passed out, bent forward and hit his head on toilet seat. As per the , he had generalized shaking like seizure but he does not have history of epilepsy. After that he was groggy and lethargic. Initial EKG by EMS had ST elevation in V2 and V3 but no reciprocal changes. EMS vitals were within normal limit. ER physician discussed with Dr. Suarez and thought to be artifact. EKG here shows normal sinus rhythm at 62 bpm. First troponin negative. He also complained of left-sided renal angle pain which is chronic in nature but has been more pronounced and prominent for last 1 day. [] Basic labs are within baseline except creatinine which is high 2.15. Baseline is between 1.5-1.7. Patient has right renal atrophy and history of recurrent UTI from possible vesicoureteral reflux. He has been on chronic trimethoprim for 1 year by PCP. Past Medical History Past Medical History (Chronic Problems): Chronic Problems (Last Reviewed 05/12/17 @ 11:25 by Tamiko Cabrera) Chronic kidney disease, stage 3 (Chronic) History of coronary artery stent placement (Chronic ~09/29/16) PCI-HECTOR-Mid Cx Atherosclerosis of coronary artery of [place] heart without angina pectoris (Chronic) PCI-HECTOR-Mid Cx 09/29/16 Sleep-disordered breathing (Chronic) NSVT (nonsustained ventricular tachycardia) (Chronic) Smoking addiction (Chronic) Hypertension (Chronic) Hyperlipidemia (Chronic) Osteoarthritis (Chronic) Spinal stenosis of lumbar region (Chronic) Chronic radicular lumbar pain (Chronic) STEMI (ST elevation myocardial infarction) (Chronic) Sciatica (Chronic) Allergies sulfamethoxazole [From Bactrim] Allergy (Mild, Verified 08/31/17 00:37) Rash trimethoprim [From Bactrim] Allergy (Mild, Verified 08/31/17 00:37) Rash bupropion [From Wellbutrin] Adverse Reaction (Verified 08/31/17 00:37) Elevated BP Home Medications: Ambulatory Orders Medication Instructions Recorded Ergocalciferol [Vitamin D] 50,000 unit PO QMONTH 04/21/15 Escitalopram Oxalate [Lexapro] 5 mg PO DAILY 04/21/15 Fish Oil/Dha/Epa [Fish Oil 1,200 1 ea PO DAILY 04/21/15 mg Fish Oil] Allopurinol [Zyloprim] 100 mg PO DAILYCM 07/25/15 Hydrocodone Bitart/Apap 5-325 1 tab PO Q6H PRN PRN 07/25/15 [[place] 5/325] Trimethoprim 1 tab PO QODAY 04/27/16 Atorvastatin Calcium [Lipitor] 80 mg PO QHS #30 tab 10/01/16 Metoprolol Tartrate [Lopressor 25 mg PO BID #60 tab 10/01/16 (beta rachel)] Ticagrelor [Brilinta] 90 mg PO BID #60 tab 10/01/16 Aspirin 325 mg PO DAILY@0800 04/07/17 Isosorbide Mononitrate [Isosorbide 30 mg PO DAILY 04/07/17 Mononitrate ER] gabapentin 600 mg tablet 600 mg PO TID 05/10/17 vitamin B complex and vitamin C 1 cap PO QDAY 05/10/17 no.20-folic acid 1 mg capsule lisinopril 10 mg tablet 10 mg PO QDAY #30 tab 05/12/17 Surgical History: - - Multiple urological surgeries including diversion of ureter, surgery for urethral stricture, renal stent placement, and ileoconduit placement Psychiatric History: No pertinent psych hx Smoking Status: Current every day smoker - *Family History Maternal History Items: No pertinent history Paternal History Items: Hypertension Review of Systems Constitutional: Reports: Chills, Fever, Weakness HEENT: Denies: Head Aches, Sinus Congestion, Sinus Drainage Cardiovascular: Reports: Chest Pain. Denies: Palpitations Respiratory: Denies: Cough, Shortness of breath at rest, Sputum production Gastrointestinal: Reports: Abdominal Pain. Denies: Nausea, Vomiting Genitourinary: Denies: Dysuria Musculoskeletal: Denies: Joint Pain, Joint Tenderness Skin: Denies: Rash, Wounds Neurological: Denies: Numbness, Tingling, Focal weakness Psychiatric: Denies: Anxiety, Depression, Homicidal Ideations, Suicidal Ideations Hematologic/ Lymphatic: Denies: Easy Bruising, Easy Bleeding VTE Information - Inpt Only VTE Present on Admission: No VTE Mechan Device Prophylaxis: SCD's VTE Pharm Prophylaxis ordered?: Yes Patient Problems: Active and Suspected Problems (Last Reviewed 05/12/17 @ 11:25 by Tamiko Cabrera) Syncope and collapse (Acute) Atypical chest pain (Acute) Acute kidney injury on CKD stage III (Acute) - Physical Exam General: Alert, Oriented x3, Cooperative HEENT: Atraumatic, PERRLA, EOMI, Normocephalic Neck: Supple, No JVD, Negative Carotid Bruits Lungs: Clear to auscultation, Normal air movement, No rhonchi, No wheeze, No rales Cardiovascular: Regular rate, Regular Rhythm, Normal S1, Normal S2, No murmurs Abdomen: Bowel Sounds Present, Soft, Tender - Tenderness over left renal lesion. No fullness. Extremities: No edema, Capillary Refill Less than 3 Seconds Skin: No rashes, No breakdown Musculoskeletal: No Tenderness to Palpation of Joints or Extremities Neurological: Cranial nerves II-XII grossly intact Psych/Mental Status: Normal Affect, Appropriate Vital Signs Temp Pulse Resp BP Pulse Ox 96.7 F L 56 L 13 134/89 H 100 08/31/17 02:24 08/31/17 02:24 08/31/17 02:24 08/31/17 02:24 08/31/17 02:24 Assessment/Plan Active and Suspected Problems (Last Reviewed 05/12/17 @ 11:25 by Tamiko Cabrera) Syncope and collapse (Acute) Atypical chest pain (Acute) Acute kidney injury on CKD stage III (Acute) The patient is a 47 year old M with multiple comorbidities including history of NSTEMI status post PCI in mid circumflex and NSVT in September 2016 was brought in by ambulance after he passed out and had transient chest pain. Patient has been feeling feverish and chills for 1 day. While sitting in the bathroom for self-catheterization, he suddenly passed out, bent forward and hit his head on toilet seat. As per the , he had generalized shaking like seizure but he does not have history of epilepsy. After that he was groggy and lethargic. Initial EKG by EMS had ST elevation in V2 and V3 but no reciprocal changes. EMS vitals were within normal limit. ER physician discussed with Dr. Suarez and thought to be artifact. EKG here shows normal sinus rhythm at 62 bpm. First troponin negative. [] Basic labs are within baseline except creatinine which is high 2.15. Baseline is between 1.5-1.7. Patient has right renal atrophy and history of recurrent UTI from possible vesicoureteral reflux. He has been on chronic trimethoprim for 1 year by PCP. 1. Syncope and collapse exact etiology unclear but possible vasovagal/possible UTI: The patient is being admitted in PCU. Serial cardiac enzymes. Patient had echo in September 2016 which shows normal LV size and systolic function, EF 60% with no regional wall motion abnormality. Cardiology consult Dr. Suarez. 2. Shaking/seizure like activity: Most probably chills. Neuro check every 4 hourly. I do not think that it was seizure episode. 3. Kidney and urology disease: Recurrent UTI, with pyelonephritis, mild right kidney cortical atrophy, chronic dilatation of the renal collecting system with ureteral diversion with ileal conduit: UA with reflex urine culture ordered. Empirically start on IV ceftriaxone after urine sample is collected. Patient has been on trimethoprim for 1 year. Discontinue trimethoprim. Previous urine culture reviewed and shows Streptococcus group B and E. coli. 4. Acute kidney injury on CKD stage III: IV fluid normal saline. Monitor kidney function and electrolytes. 5. Other chronic comorbidities include history of a STEMI status post stent, hypertension, dyslipidemia, lumbar spinal stenosis, sciatica and history of staph bacteremia: Home medication reconciliation done. DVT prophylaxis: On heparin 5000 subcu units twice daily and bilateral SCDs This note was generated with [employer] dictation software. Every effort was made to ensure accuracy, however computerized dispatcher relay mistakes may persist. Code Visit Inpatient E&M: 34772 Init Hosp L3 OBSV E&M: 72625 Initial observation care L3
[2017-08-31] MEDS: 0.9% Normal Saline 1,000 ML 250 ML IV (04:04)
[2017-08-31 06:08] LABS: Red Blood Cells-Urine 0 SEEN /hpf (0-5)
[2017-08-31 06:10] LABS: Color, Urine Straw (Yellow); Glucose, Dipstick Normal (Normal); Ketone-Dipstick Negative (Negative); Leukocyte Esterase-Dipstick Negative /ul (Negative); Nitrite-Dipstick Negative (Negative); Occult Blood-Urine 10 /ul (Negative); Protein-Dipstick 30 mg/dl (Negative); Urine Bilirubin Dipstick Negative (Negative); Urine Clarity Clear (Clear); Urine Urobilinogen Normal (Normal); Urine pH 6.5 (5.0 - 8.0)
[2017-08-31 06:12] LABS: Cholesterol 126 mg/dL (200); High Density Lipoprotein 28 mg/dL; Magnesium 2.2 mg/dL (1.6-2.6); Thyroid Stim Hormone (TSH) 1.31 uIU/mL (0.358-3.74); Triglycerides 347 mg/dL; Very Low Density Lipoprotein 69 mg/dL (5-40)
[2017-08-31] MEDS: 0.9% NaCl IVPB Med Flush (250 mL) 15 ML IV (06:32)
[2017-08-31] MEDS: Ceftriaxone 1 GM/50 ML BAG IV (06:32)
[2017-08-31] MEDS: Gabapentin 600 MG Tablet PO ×3 (06:32→21:04)
[2017-08-31 06:40] LABS: Bacteria RARE /hpf (None Seen); Squamous Epithelial Cells - UA 0-5 SEEN /hpf (0-5); White Blood Cells 0-5 SEEN /hpf (0-5)
[2017-08-31 06:41] LABS: Mucous, Urine RARE /hpf (<or=2+)
[2017-08-31 09:31] LABS: Anion Gap 9 (5-15); BUN 25 mg/dL (7-18); BUN/Creat Ratio 14.9 RATIO (10-20); Calcium,Total 8.1 mg/dL (8.5-10.1); Chloride 114 mmol/L (98-107); Creatinine, Serum 1.68 mg/dL (0.70-1.30); EST Glomerular Filtration Rate 46 mL/min (>60); Est Glom Filt Rate - Afr Amer 56 mL/min (>60); Estimated Creatinine Clearance 60.11 ml/min; Glucose 108 mg/dL (74-106); Potassium 4.3 mmol/L (3.5-5.1); Sodium Level 143 mmol/L (136-145)
[2017-08-31] MEDS: 0.9% Normal Saline 1,000 ML 150 ML IV ×3 (09:31→21:06)
[2017-08-31] MEDS: Metoprolol Tartrate 25 MG Tablet PO ×2 (09:32→21:05)
[2017-08-31] MEDS: TICAGRELOR 90 MG TABLET PO ×2 (09:32→21:04)
[2017-08-31] MEDS: Allopurinol 100 MG Tablet PO (09:32)
[2017-08-31] MEDS: Aspirin 325 MG Tablet PO (09:32)
[2017-08-31] MEDS: Folic Acid/Vitamin B Comp W-C 1 Capsule 1 CAP PO (09:32)
[2017-08-31] MEDS: Escitalopram Oxalate 10 MG Tablet 5 MG PO (09:32)
[2017-08-31] MEDS: Isosorbide Mononitrate 30 MG Tablet PO (09:32)
--- NOTE | 2017-08-31 13:04 | PCM.PROGNOTE ---
<Halle Molina - Last Filed: 08/31/17 13:31> Patient Problems: Active and Suspected Problems (Last Reviewed 05/12/17 @ 11:25 by Tamiko Cabrera) Syncope and collapse (Acute) Atypical chest pain (Acute) Acute kidney injury on CKD stage III (Acute) Subjective: Patient seen and examined. Denies further dizziness, syncope, chest pain. States he currently feels at his baseline. Denies any recollection of events prior to admission relating to his syncope and fall. Denies current complaints. - Physical Exam General: Alert, Oriented x3, Cooperative, No apparent distress HEENT: Atraumatic, PERRLA, EOMI, Normocephalic Neck: Supple, No JVD, Negative Carotid Bruits Lungs: Clear to auscultation, Normal air movement Cardiovascular: Regular rate, Regular Rhythm, Normal S1, Normal S2, No murmurs Abdomen: Bowel Sounds Present, Soft, Non Tender, Non-Distended Extremities: No clubbing, No cyanosis, No edema, Capillary Refill Less than 3 Seconds Skin: No rashes, No breakdown Musculoskeletal: No Tenderness to Palpation of Joints or Extremities Neurological: Cranial nerves II-XII grossly intact, Neuro grossly intact Psych/Mental Status: Normal Affect, Appropriate Vital Signs Temp Pulse Resp BP Pulse Ox 97.8 F 69 16 132/86 H 97 08/31/17 09:28 08/31/17 11:16 08/31/17 09:28 08/31/17 09:28 08/31/17 09:28 Oxygen Delivery Method Room Air Weight: 98.2 kg Body Mass Index (BMI) 28.5 Intake and Output for Last 24 Hours 08/29/17 08/30/17 08/31/17 23:59 23:59 23:59 Intake Total 1581 / 1581 Output Total 200 / 200 Balance 1381 / 1381 Laboratory Tests Past 24 Hrs 08/31/17 08/31/17 08/31/17 04:10 04:51 04:51 Sodium Potassium Chloride Carbon Dioxide Anion Gap BUN Creatinine Estim Creat Clear Calc Est GFR (MDRD) Af Amer Est GFR (MDRD) Non-Af BUN/Creatinine Ratio Glucose Calcium Magnesium 2.2 Troponin I < 0.02 Triglycerides 347 H Cholesterol 126 LDL Cholesterol 29 VLDL Cholesterol 69 H HDL Cholesterol 28 L TSH 1.31 Urine Color Straw Urine Clarity Clear Urine pH 6.5 Ur Specific [place] 1.010 Urine Protein 30 H Urine Glucose (UA) Normal Urine Ketones Negative Urine Occult Blood 10 H Urine Nitrite Negative Urine Bilirubin Negative Urine Urobilinogen Normal Ur Leukocyte Esterase Negative Urine RBC 0 SEEN Urine WBC 0-5 SEEN Ur Squamous Epith Cells 0-5 SEEN Urine Bacteria RARE Urine Mucus RARE 08/31/17 08/31/17 08:30 08:30 Sodium 143 Potassium 4.3 Chloride 114 H Carbon Dioxide 20.0 L Anion Gap 9 BUN 25 H Creatinine 1.68 H Estim Creat Clear Calc 60.11 Est GFR (MDRD) Af Amer 56 L Est GFR (MDRD) Non-Af 46 L BUN/Creatinine Ratio 14.9 Glucose 108 H Calcium 8.1 L Magnesium Troponin I < 0.02 Triglycerides Cholesterol LDL Cholesterol VLDL Cholesterol HDL Cholesterol TSH Urine Color Urine Clarity Urine pH Ur Specific [place] Urine Protein Urine Glucose (UA) Urine Ketones Urine Occult Blood Urine Nitrite Urine Bilirubin Urine Urobilinogen Ur Leukocyte Esterase Urine RBC Urine WBC Ur Squamous Epith Cells Urine Bacteria Urine Mucus Medical Necessity - Tobacco Use Smoking Status: Current every day smoker Assessment/Plan Active and Suspected Problems (Last Reviewed 05/12/17 @ 11:25 by Tamiko Cabrera) Syncope and collapse (Acute) Atypical chest pain (Acute) Acute kidney injury on CKD stage III (Acute) Patient is a 47-year-old male admitted 08/30/17 due to syncope with collapse and chest pain. He has a past medical history of CAD with NSTEMI requiring PCI in September 2016, hypertension, hyperlipidemia, chronic back pain, tobacco dependence, chronic kidney disease stage III, history of nonsustained ventricular tachycardia, osteoarthritis, neurogenic bladder requiring self-catheterization, frequent UTIs, depression. 1. Syncope with fall/possible seizure-patient's reports patient was shaking following his collapse and lost control of his bladder. Patient denies history of seizures. Brain CT showed no evidence of acute intracranial hemorrhage. Left-sided scalp contusion. CT of cervical spine showed no evidence of acute compression or displaced fracture of the cervical spine. CT of abdomen pelvis showed unchanged appearance to dilatation of bilateral renal collecting systems. Chest x-ray unremarkable. Troponin negative ?3. Magnesium within normal limits. TSH within normal limits. Obtain MRI of brain. Obtain EEG. Obtain echocardiogram. Consult neurology. Check orthostatic vitals. 2. Chest pain-patient reports this was very brief in nature, not associated with other symptoms and has not recurred. Troponin negative ?3. Obtain echocardiogram as noted above. EKG without ST-T changes. 3. CAD status post PCI-patient with NSTEMI September 2016 which required stenting with HECTOR to left circumflex. Catheterization also showed significant disease in the inferior branch of diagonal 1 and mid LAD. Echocardiogram September 2016 showed an EF of 60%. Continue aspirin, statin, Brilinta, metoprolol, lisinopril, isosorbide. Patient follows with Dr. Suarez. 4. History of nonsustained ventricular tachycardia-secondary to above. 5. Acute kidney injury on chronic kidney disease stage III-improved with IV fluids. Monitor BMP. Patient follows with Dr. Lr. 6. Neurogenic bladder-continue home self catheterization regimen. Associated frequent UTIs. Urinalysis admission unremarkable. Patient on chronic preventative antibiotic therapy with trimethoprim. UTI ruled out. IV abx discontinued. Culture pending. 7. Hypertension-stable, continue home regimen. 8. Hyperlipidemia-continue statin. Triglycerides 347. LDL 69. HDL 28. Patient already on atorvastatin 80 mg daily. Consider adding additional agent. 9. Tobacco dependence-encourage smoking cessation. Nicotine replacement patch if desired. 10. Chronic back pain secondary to lumbar canal stenosis/sciatica/osteoarthritis-continue home gabapentin regimen. 11. Depression-continue home Lexapro regimen. DVT prophylaxis-heparin subcu, SCDs. This patient was seen by LOTTIE Alvarenga under the supervision of Dr. Delacruz. <Byron Delacruz - Last Filed: 08/31/17 14:33> - Physical Exam Vital Signs Temp Pulse Resp BP Pulse Ox 97.8 F 69 16 132/86 H 97 08/31/17 09:28 08/31/17 11:16 08/31/17 09:28 08/31/17 09:28 08/31/17 09:28 Oxygen Delivery Method Room Air Weight: 98.2 kg Body Mass Index (BMI) 28.5 Intake and Output for Last 24 Hours 08/29/17 08/30/17 08/31/17 23:59 23:59 23:59 Intake Total 1581 / 1581 Output Total 200 / 200 Balance 1381 / 1381 Laboratory Tests Past 24 Hrs 08/31/17 08/31/17 08/31/17 04:10 04:51 04:51 Sodium Potassium Chloride Carbon Dioxide Anion Gap BUN Creatinine Estim Creat Clear Calc Est GFR (MDRD) Af Amer Est GFR (MDRD) Non-Af BUN/Creatinine Ratio Glucose Calcium Magnesium 2.2 Troponin I < 0.02 Triglycerides 347 H Cholesterol 126 LDL Cholesterol 29 VLDL Cholesterol 69 H HDL Cholesterol 28 L TSH 1.31 Urine Color Straw Urine Clarity Clear Urine pH 6.5 Ur Specific [place] 1.010 Urine Protein 30 H Urine Glucose (UA) Normal Urine Ketones Negative Urine Occult Blood 10 H Urine Nitrite Negative Urine Bilirubin Negative Urine Urobilinogen Normal Ur Leukocyte Esterase Negative Urine RBC 0 SEEN Urine WBC 0-5 SEEN Ur Squamous Epith Cells 0-5 SEEN Urine Bacteria RARE Urine Mucus RARE 08/31/17 08/31/17 08:30 08:30 Sodium 143 Potassium 4.3 Chloride 114 H Carbon Dioxide 20.0 L Anion Gap 9 BUN 25 H Creatinine 1.68 H Estim Creat Clear Calc 60.11 Est GFR (MDRD) Af Amer 56 L Est GFR (MDRD) Non-Af 46 L BUN/Creatinine Ratio 14.9 Glucose 108 H Calcium 8.1 L Magnesium Troponin I < 0.02 Triglycerides Cholesterol LDL Cholesterol VLDL Cholesterol HDL Cholesterol TSH Urine Color Urine Clarity Urine pH Ur Specific [place] Urine Protein Urine Glucose (UA) Urine Ketones Urine Occult Blood Urine Nitrite Urine Bilirubin Urine Urobilinogen Ur Leukocyte Esterase Urine RBC Urine WBC Ur Squamous Epith Cells Urine Bacteria Urine Mucus Assessment/Plan This patient was seen in conjunction with LOTTIE Alvarenga. I have independently interviewed and examined the patient and reviewed pertinent historical, laboratory, and other data. Please refer to LOTTIE Alvarenga note for details of this patient's presentation, findings, and recommendations. I have reviewed LOTTIE Alvarenga note and concur with documented findings. In brief, patient is a 47 year old gentleman admitted following the passing out episode with associated involuntary movement with witnessed by the Physical Examination: GENERAL: not in acute distress HEENT: Clear conjunctiva, NECK; supple, normal thyroid, CHEST: Diminished to auscultation bilaterally, CHILDCARE PROVIDER: Awake, no lateralizing signs. SKIN: No rash Assessment: 1. Syncopal episode 2. Possible seizure 3. CAD with previous PCI with EHCTOR to left circumflex 4. History of nonsustained VT 5. Acute kidney injury 6. Chronic kidney disease stage III 7. Neurogenic bladder with self-catheterization at home and frequent UTIs 8. Hypertension 9. Tobacco dependence 10. Depression on SSRI 11. Dyslipidemia 12. Chronic back pain 13. DVT prophylaxis SC heparin Recommendations: 1. I have discussed the results of my overview and impressions with the patient 2. Options for management were reviewed Code Visit Inpatient E&M: 28175 Subs Hosp L3
[2017-08-31] MEDS: Atorvastatin Calcium 80 MG Tablet PO (21:06)
[2017-08-31] MEDS: HYDROcodone Bitartrate/Apap 5/325 Tablet PO (23:15)
[2017-09-01] VITALS (12 sets, daily range): BP systolic 126–165; BP diastolic 77–103; PULSE 60–85; RESP 18; TEMP 36.8–37.1; O2SAT 94–98
[2017-09-01] MEDS: Morphine 2 MG/ML Syringe IV (01:24)
[2017-09-01] MEDS: 0.9% NaCl Peripheral Flush Adult/Peds IV (01:27)
[2017-09-01] MEDS: 0.9% Normal Saline 1,000 ML 150 ML IV ×2 (03:25→13:31)
[2017-09-01] MEDS: Gabapentin 600 MG Tablet PO ×2 (06:21→13:13)
[2017-09-01 06:43] LABS: Hematocrit 40.8 % (40-54); Hemoglobin 12.9 g/dl (13.0-16.5); Mean Corp Hgb Conc 31.6 g/gl (32-36); Mean Corpuscular Hgb 28.9 pg (27.0-32.0); Mean Corpuscular Volume 91.3 fL (80-94); Mean Platelet Vol. 8.8 fl (6.2-12.0); Platelet Count 235 K/mm3 (150-450); RBC Distribution Width CV 13.7 % (11.6-14.6); RBC Distribution Width SD 45.3 fl (35.1-43.9); Red Blood Count 4.47 M/mm3 (4.6-6.2); White Blood Count 8.6 K/mm3 (4.4-11.0)
[2017-09-01 06:44] LABS: Scan Indicated on CBC? Y/N NO
[2017-09-01 06:46] LABS: Anion Gap 6 (5-15); BUN 19 mg/dL (7-18); BUN/Creat Ratio 11.4 RATIO (10-20); Calcium,Total 8.5 mg/dL (8.5-10.1); Chloride 114 mmol/L (98-107); Creatinine, Serum 1.67 mg/dL (0.70-1.30); EST Glomerular Filtration Rate 47 mL/min (>60); Est Glom Filt Rate - Afr Amer 56 mL/min (>60); Estimated Creatinine Clearance 60.47 ml/min; Glucose 178 mg/dL (74-106); Potassium 4.3 mmol/L (3.5-5.1); Sodium Level 142 mmol/L (136-145)
--- NOTE | 2017-09-01 07:05 | MRI_ITS ---
STUDY: MRI BRAIN WITH AND WITHOUT CONTRAST REASON FOR EXAM: Male, 47 years old. Syncope. Hit head.? Seizure. History of Sanchez's palsy. TECHNIQUE: Standardized multiplanar fat and water weighted pulse sequences were obtained. 10 ml of Gadavist contrast material was administered intravenously for the contrast portion of the examination. COMPARISON: CT head without contrast 08/31/2017. MR brain without contrast 06/07/2015. FINDINGS: No restricted diffusion to suspect acute or subacute ischemic infarct. No focal signal abnormalities throughout the brain parenchyma. The beverly matter, white matter, ventricles and cisterns are normal. Following IV contrast administration, there are no enhancing lesions extra-axially or intraaxially. Normal size of the ventricles and extra-axial spaces for the patient's age. Normal white matter tracts of the supratentorial brain. Normal bilateral basal ganglia. Normal thalami. There is no extra-axial fluid accumulation. Normal flow voids within the major intracranial circulation suggesting patency by spin echo criteria. Normal venous enhancement. There is no enhancing intra-axial or extra-axial abnormality. Normal sella turcica, pituitary gland, infundibular stalk, optic chiasm and hypothalamus. Normal tectal plate and pineal gland. Normal midbrain, irish and medulla. Normal cerebellum. Normal basal cisterns. Normal bilateral temporal bones. Normal bilateral internal auditory canals. No demonstrated orbital abnormality, within the constraints of a routine brain study. Normal visualized paranasal sinuses. Normal calvarium and skull base. Normal visualized soft tissue structures. Normal visualized upper cervical spine. MRI/Brain W/WO Contrast IMPRESSION: Normal unenhanced and enhanced MRI of the brain. Electronically Signed: Jb Walker MD at 10:14 EDT , Service support ,
--- NOTE | 2017-09-01 08:23 | EEG_ITS ---
- Electroencephalogram Date of service 09/01/17 This is an 18 channel electroencephalogram performed utilizing the International 10-20 electrode placement protocol on this 47-year-old male with a history of syncope and collapse. Photic stimulation, hyperventilation and EKG rhythm strip recording was also performed. Background activity is 8-10 Hz symmetrically in the posterior leads which attenuates with eye opening. Hyperventilation was performed for 2-1/2 minutes with good effort with no lateralizing or epileptiform changes in the post hyperventilatory phase was unremarkable. The patient experienced wakefulness and sleep during the recording with no lateralizing or epileptiform changes. Snoring was noted by the water quality technician. She is normal sinus rhythm throughout the recording and photic stimulation demonstrates normal symmetric driving in the posterior leads. Impression: Normal awake and asleep electroencephalogram
--- NOTE | 2017-09-01 08:31 | PCM.CONS.GEN ---
Reason for Consult Date of Consultation: 09/01/17 Reason for Consultation: loc History of Present Illness: The patient is a 47 year old male who presented after the 5th episode of loc, describes he was walking to go to the bathroom, felt hot, then was urinating, and lost consciousness, awoke in the hospital. was present and says that he self cathed, then he dropped, hit his head on the toilet, and shaking and unresponsive, then was able to respond normally with in 10 minutes. has a neurogenic bladder which has led to renal insufficiency. all other episodes have occurred while standing, on his way to the bathroom or kitchen. no tongue biting. no head injuries although at one occasion he felt like his brain was being shaken. Past Medical History Past Medical History (Chronic Problems): Chronic Problems (Last Reviewed 05/12/17 @ 11:25 by Tamiko Cabrera) Chronic kidney disease, stage 3 (Chronic) History of coronary artery stent placement (Chronic ~09/29/16) PCI-HECTOR-Mid Cx Atherosclerosis of coronary artery of [place] heart without angina pectoris (Chronic) PCI-HECTOR-Mid Cx 09/29/16 Sleep-disordered breathing (Chronic) NSVT (nonsustained ventricular tachycardia) (Chronic) Smoking addiction (Chronic) Hypertension (Chronic) Hyperlipidemia (Chronic) Osteoarthritis (Chronic) Spinal stenosis of lumbar region (Chronic) Chronic radicular lumbar pain (Chronic) STEMI (ST elevation myocardial infarction) (Chronic) Sciatica (Chronic) Allergies sulfamethoxazole [From Bactrim] Allergy (Mild, Verified 08/31/17 03:38) Rash trimethoprim [From Bactrim] Allergy (Mild, Verified 08/31/17 03:38) Rash bupropion [From Wellbutrin] Adverse Reaction (Verified 08/31/17 03:38) Elevated BP Home Medications: Ambulatory Orders Medication Instructions Recorded Ergocalciferol [Vitamin D] 50,000 unit PO QWEEK 04/21/15 Escitalopram Oxalate [Lexapro] 5 mg PO DAILY 04/21/15 Fish Oil/Dha/Epa [Fish Oil 1,200 1 ea PO DAILY 04/21/15 mg Fish Oil] Allopurinol [Zyloprim] 100 mg PO DAILY 07/25/15 Hydrocodone Bitart/Apap 5-325 1 tab PO Q6H PRN PRN 07/25/15 [[place] 5/325] Trimethoprim 1 tab PO QODAY 04/27/16 Atorvastatin Calcium [Lipitor] 80 mg PO QHS #30 tab 10/01/16 Metoprolol Tartrate [Lopressor 25 mg PO BID #60 tab 10/01/16 (beta obdulia)] Ticagrelor [Brilinta] 90 mg PO BID #60 tab 10/01/16 Aspirin 325 mg PO DAILY@0800 04/07/17 Isosorbide Mononitrate [Isosorbide 30 mg PO DAILY 04/07/17 Mononitrate ER] gabapentin 600 mg tablet 300 mg PO BID 05/10/17 vitamin B complex and vitamin C 1 cap PO QDAY 05/10/17 no.20-folic acid 1 mg capsule lisinopril 10 mg tablet 10 mg PO QDAY #30 tab 05/12/17 Surgical History: - - Multiple urological surgeries including diversion of ureter, surgery for urethral stricture, renal stent placement, and ileoconduit placement Psychiatric History: No pertinent psych hx Smoking Status: Current every day smoker - *Family History Maternal History Items: No pertinent history Paternal History Items: Hypertension Review of Systems Constitutional: Denies: Chills, Fever, Weight Change HEENT: Denies: Head Aches, Sinus Congestion, Sinus Drainage Cardiovascular: Denies: Chest Pain, Palpitations Respiratory: Denies: Cough, Shortness of breath at rest, Sputum production Gastrointestinal: Denies: Abdominal Pain, Nausea, Vomiting Genitourinary: Denies: Dysuria Musculoskeletal: Denies: Joint Pain, Joint Tenderness Skin: Denies: Rash, Wounds Neurological: Denies: Numbness, Tingling, Focal weakness Psychiatric: Denies: Anxiety, Depression, Homicidal Ideations, Suicidal Ideations Hematologic/ Lymphatic: Denies: Easy Bruising, Easy Bleeding Patient Problems: Active and Suspected Problems (Last Reviewed 05/12/17 @ 11:25 by Tamiko Cabrera) Syncope and collapse (Acute) Atypical chest pain (Acute) Acute kidney injury on CKD stage III (Acute) - Physical Exam General: Alert, Oriented x3, Cooperative HEENT: Atraumatic, PERRLA, EOMI, Normocephalic Neck: Supple, No JVD, Negative Carotid Bruits Lungs: Clear to auscultation, Normal air movement Cardiovascular: Regular rate, No murmurs Abdomen: Bowel Sounds Present, Soft, Non Tender Extremities: No edema, Capillary Refill Less than 3 Seconds Skin: No rashes, No breakdown Musculoskeletal: No Tenderness to Palpation of Joints or Extremities Neurological: Cranial nerves II-XII grossly intact Psych/Mental Status: Normal Affect, Appropriate Vital Signs Temp Pulse Resp BP Pulse Ox 37.0 C 64 18 143/83 H 95 09/01/17 02:42 09/01/17 07:24 09/01/17 02:42 09/01/17 06:00 09/01/17 02:42 Oxygen Delivery Method Room Air Weight: 98.2 kg Body Mass Index (BMI) 28.5 Orthostatic Vital Signs Start: 08/31/17 20:22 Freq: 0600 Status: Active Protocol: Activity Type Activity Date Activity User E-Sign Co-Sign Detail Recorded Client Recorded Date Recorded By Document 09/01/17 06:00 KG [id number] 09/01/17 06:47 KG 09/01/17 06:00 Orthostatic Vitals Standing -Blood Pressure (90/60-120/80) 126/77 H -Extremity Use Left Arm -Pulse Rate (60-100) 62 Sitting -Blood Pressure (90/60-120/80) 137/88 H -Extremity Use Left Arm -Pulse Rate (60-100) 85 Lying -Blood Pressure (90/60-120/80) 143/83 H -Extremity Use Left Arm -Pulse Rate (60-100) 60 Intake and Output for Last 24 Hours 08/30/17 08/31/17 09/01/17 23:59 23:59 23:59 Intake Total 3231 / 3231 2495 / 2495 Output Total 1999 2550 / 2550 Balance 1231 / 1231 -55 / -55 Laboratory Tests Past 24 Hrs 08/31/17 08/31/17 08/31/17 08:30 08:30 14:34 WBC RBC Hgb Hct MCV MCH MCHC RDW RDW Differential Plt Count MPV Sodium 143 Potassium 4.3 Chloride 114 H Carbon Dioxide 20.0 L Anion Gap 9 BUN 25 H Creatinine 1.68 H Estim Creat Clear Calc 60.11 Est GFR (MDRD) Af Amer 56 L Est GFR (MDRD) Non-Af 46 L BUN/Creatinine Ratio 14.9 Glucose 108 H Calcium 8.1 L Troponin I < 0.02 < 0.02 09/01/17 09/01/17 06:10 06:10 WBC 8.6 RBC 4.47 L Hgb 12.9 L Hct 40.8 MCV 91.3 MCH 28.9 MCHC 31.6 L RDW 13.7 RDW Differential 45.3 H Plt Count 235 MPV 8.8 Sodium 142 Potassium 4.3 Chloride 114 H Carbon Dioxide 22.0 Anion Gap 6 BUN 19 H Creatinine 1.67 H Estim Creat Clear Calc 60.47 Est GFR (MDRD) Af Amer 56 L Est GFR (MDRD) Non-Af 47 L BUN/Creatinine Ratio 11.4 Glucose 178 H Calcium 8.5 Troponin I eeg normal, reviewed Current Home Med List Medication Instructions Recorded Confirmed Type Ergocalciferol [Vitamin D] 50,000 unit PO QWEEK 04/21/15 08/31/17 History Escitalopram Oxalate [Lexapro] 5 mg PO DAILY 04/21/15 08/31/17 History Fish Oil/Dha/Epa [Fish Oil 1,200 1 ea PO DAILY 04/21/15 08/31/17 History mg Fish Oil] Allopurinol [Zyloprim] 100 mg PO DAILY 07/25/15 08/31/17 History Hydrocodone Bitart/Apap 5-325 1 tab PO Q6H PRN PRN 07/25/15 08/31/17 History [[place] 5/325] Trimethoprim 1 tab PO QODAY 04/27/16 08/31/17 History Atorvastatin Calcium [Lipitor] 80 mg PO QHS #30 tab 10/01/16 08/31/17 Rx Metoprolol Tartrate [Lopressor 25 mg PO BID #60 tab 10/01/16 08/31/17 Rx (beta obdulia)] Ticagrelor [Brilinta] 90 mg PO BID #60 tab 10/01/16 08/31/17 Rx Aspirin 325 mg PO DAILY@0800 04/07/17 08/31/17 History Isosorbide Mononitrate [Isosorbide 30 mg PO DAILY 04/07/17 08/31/17 History Mononitrate ER] gabapentin 600 mg tablet 300 mg PO BID 05/10/17 08/31/17 History vitamin B complex and vitamin C 1 cap PO QDAY 05/10/17 08/31/17 History no.20-folic acid 1 mg capsule lisinopril 10 mg tablet 10 mg PO QDAY #30 tab 01/08/18 04/29/18 Rx Current Medications Generic Name Dose Route Start Last Admin Trade Name Freq PRN Reason Stop Dose Admin Acetaminophen 650 mg 09/01/17 04:09 Tylenol PO Q4H PRN PRN fever/pain Hydrocodone Bitart/Acetaminophen 1 tablet 08/31/17 03:20 08/31/17 23:15 [place] 5mg-325mg PO 1 tablet Q6H PRN PRN Administration PAIN Allopurinol 100 mg 08/31/17 08:00 08/31/17 09:32 Zyloprim PO 100 mg DAILYCM BERNA Administration Aspirin 325 mg 08/31/17 08:00 08/31/17 09:32 Aspirin PO 325 mg DAILY@0800 BERNA Administration Atorvastatin Calcium 80 mg 08/31/17 22:00 08/31/17 21:06 Lipitor PO 80 mg QHS BERNA Administration Escitalopram Oxalate 5 mg 08/31/17 10:00 08/31/17 09:32 Lexapro PO 5 mg DAILY BERNA Administration Gabapentin 600 mg 08/31/17 06:00 09/01/17 06:21 Neurontin PO 600 mg TID BERNA Administration Sodium Chloride 1,000 mls @ 150 mls/hr 08/31/17 07:15 09/01/17 03:25 IV 150 mls/hr .[id number] BERNA Administration Sodium Chloride 250 mls @ 15 mls/hr 08/31/17 04:16 08/31/17 06:32 IV 15 mls/hr .[id number] PRN Administration SALINE FLUSH Isosorbide Mononitrate 30 mg 08/31/17 10:00 08/31/17 09:32 Imdur PO 30 mg DAILY BERNA Administration Metoprolol Tartrate 25 mg 08/31/17 10:00 08/31/17 21:05 Lopressor (Beta Obdulia) PO 25 mg BID BERNA Administration Morphine Sulfate 2 mg 09/01/17 00:37 09/01/17 01:24 IV 2 mg Q3H PRN PRN Administration SEVERE PAIN (6-10/10) Multivit/Ca Carb/B Cmplx/FA/Prenat 1 capsule 08/31/17 08:00 08/31/17 09:32 Nephrocaps, Renaphro PO 1 capsule DAILY BERNA Administration Nitroglycerin 0.4 mg 08/31/17 03:20 Nitrostat SUBLINGUAL Q5M PRN CHEST PAIN Ondansetron HCl 4 mg 09/01/17 04:09 Zofran Odt PO Q4H PRN PRN N/Vomiting Sodium Chloride 5 - 30 ml 08/31/17 04:16 09/01/17 01:27 IV 10 ml UD PRN Administration SALINE FLUSH Ticagrelor 90 mg 08/31/17 10:00 08/31/17 21:04 Brilinta PO 90 mg BID BERNA Administration Assessment/Plan Active and Suspected Problems (Last Reviewed 05/12/17 @ 11:25 by Tamiko Cabrera) Syncope and collapse (Acute) Atypical chest pain (Acute) Acute kidney injury on CKD stage III (Acute) syncope, eeg normal, await mri, if negative suggest adjust bp meds, narcotics follow up with dr carpenter
[2017-09-01] MEDS: Folic Acid/Vitamin B Comp W-C 1 Capsule 1 CAP PO (10:14)
[2017-09-01] MEDS: Aspirin 325 MG Tablet PO (10:14)
[2017-09-01] MEDS: Allopurinol 100 MG Tablet PO (10:14)
[2017-09-01] MEDS: Isosorbide Mononitrate 30 MG Tablet PO (10:14)
[2017-09-01] MEDS: TICAGRELOR 90 MG TABLET PO (10:14)
[2017-09-01] MEDS: Escitalopram Oxalate 10 MG Tablet 5 MG PO (10:15)
[2017-09-01] MEDS: Metoprolol Tartrate 25 MG Tablet PO (10:15)
--- NOTE | 2017-09-01 10:40 | DCINST_ITS ---
- Discharge Diagnoses Current Active Problems: Current Active and Chronic Problems (Last Reviewed 05/12/17 @ 11:25 by Tamiko Cabrera) Syncope and collapse (Acute) Atypical chest pain (Acute) Acute kidney injury on CKD stage III (Acute) You will use the following diet at home:: Cardiac, Renal (restricted protein/ sodium) Discharge Activity: Return to Normal Activity Call your doctor if you observe: Inability to urinate, Shortness of breath, Dizziness, Fainting spells, Chest pain, Increased palpitations (irregular heartbeat) Allergies/Adverse Reactions: Allergies sulfamethoxazole [From Bactrim] Allergy (Mild, Verified 08/31/17 03:38) Rash trimethoprim [From Bactrim] Allergy (Mild, Verified 08/31/17 03:38) Rash bupropion [From Wellbutrin] Adverse Reaction (Verified 08/31/17 03:38) Elevated BP Medications to take at Discharge Ergocalciferol [Vitamin D] 50,000 unit PO QWEEK 04/21/15 Escitalopram Oxalate [Lexapro] 5 mg PO DAILY 04/21/15 Fish Oil/Dha/Epa [Fish Oil 1,200 mg Fish Oil] 1 ea PO DAILY 04/21/15 Allopurinol [Zyloprim] 100 mg PO DAILY 07/25/15 Hydrocodone Bitart/Apap 5-325 [[place] 5/325] 1 tab PO Q6H PRN PRN 07/25/15 Trimethoprim 1 tab PO QODAY 04/27/16 Atorvastatin Calcium [Lipitor] 80 mg PO QHS #30 tab 10/01/16 Metoprolol Tartrate [Lopressor (beta rachel)] 25 mg PO BID #60 tab 10/01/16 Ticagrelor [Brilinta] 90 mg PO BID #60 tab 10/01/16 Aspirin 325 mg PO DAILY@0800 04/07/17 Isosorbide Mononitrate [Isosorbide Mononitrate ER] 30 mg PO DAILY 04/07/17 gabapentin 600 mg tablet 300 mg PO BID 05/10/17 vitamin B complex and vitamin C no.20-folic acid 1 mg capsule 1 cap PO QDAY 10/20 lisinopril 10 mg tablet 10 mg PO QDAY #30 tab 05/12/17 Primary Care Physician: Brennan Ty MD [Primary Care Provider] - Please follow up with your Primary Care Physician in: 1 Week Please Follow Up With: Pascual Suarez MD When: 1-2 Weeks Please Follow Up With: Risa Lr DO When: 1-2 Weeks Please Follow Up With: German Quiñones MD When: As scheduled. Proposed Discharge Date: 09/01/17
--- NOTE | 2017-09-01 10:44 | PCM.DC.SUM ---
<Halle Molina - Last Filed: 09/01/17 15:34> Discharge Date and Diagnosis Date of Admission: 08/31/17 Date of Discharge: 09/01/17 - Primary Discharge Diagnosis Active and Suspected Problems (Last Reviewed 05/12/17 @ 11:25 by Tamiko Cabrera) 1. Syncope, seizure ruled out. Suspected secondary to orthostatic hypotension. 2. Chest pain- ACS ruled out. 3. SOURAV on CKD III - Secondary Discharge Diagnosis Chronic Problems (Last Reviewed 05/12/17 @ 11:25 by Tamiko Cabrera) Chronic kidney disease, stage 3 (Chronic) History of coronary artery stent placement (Chronic ~09/29/16) PCI-HECTOR-Mid Cx Atherosclerosis of coronary artery of [place] heart without angina pectoris (Chronic) PCI-HECTOR-Mid Cx 09/29/16 Sleep-disordered breathing (Chronic) NSVT (nonsustained ventricular tachycardia) (Chronic) Smoking addiction (Chronic) Hypertension (Chronic) Hyperlipidemia (Chronic) Osteoarthritis (Chronic) Spinal stenosis of lumbar region (Chronic) Chronic radicular lumbar pain (Chronic) STEMI (ST elevation myocardial infarction) (Chronic) Sciatica (Chronic) Hospital Course and Treatment Imaging Results: Diagnostic Data Brain CT 08/31/17 00:40 IMPRESSION: 1. No CT evidence of acute intracranial hemorrhage. 2. Left-sided scalp contusion. Electronically Signed: Keara Gambino MD at 1:36 EDT , Service support , Cervical Spine CT 08/31/17 00:40 IMPRESSION: No CT evidence of acute compression or displaced fracture of the cervical spine. Electronically Signed: Keara Gambino MD at 1:29 EDT , Service support , Abdomen/Pelvis CT 08/31/17 00:45 IMPRESSION: 1. Hepatic steatosis with focal sparing near the gallbladder fossa and near the edis hepatis. 2. Status post partial right-sided colon resection. 3. Apparent ureteral diversion with ileal conduit. 4. Unchanged appearance to dilatation of bilateral renal collecting systems. Electronically Signed: Keara Gambino MD at 1:51 EDT , Service support , Chest X-Ray 08/31/17 00:50 IMPRESSION: No radiographic evidence of acute cardiopulmonary disease. Electronically Signed: Keara Gambino MD at 1:26 EDT , Service support , Brain MRI 09/01/17 07:05 IMPRESSION: Normal unenhanced and enhanced MRI of the brain. Electronically Signed: Jb Walker MD at 10:14 EDT , Service support , Dr. Waterman- Neurology Operations: None Procedures: 2-D Echocardiogram, Electroencephalogram Summary of Care Provided: Patient is a 47-year-old male admitted 08/30/17 due to syncope with collapse and chest pain. He has a past medical history of CAD with NSTEMI requiring PCI in September 2016, hypertension, hyperlipidemia, chronic back pain, tobacco dependence, chronic kidney disease stage III, history of nonsustained ventricular tachycardia, osteoarthritis, neurogenic bladder requiring self-catheterization, frequent UTIs, depression. 1. Syncope with fall/ seizure ruled out-suspect secondary to orthostatic hypotension. Patient's reports patient was shaking following his collapse and lost control of his bladder. Patient denies history of seizures. Brain CT showed no evidence of acute intracranial hemorrhage. Left-sided scalp contusion. CT of cervical spine showed no evidence of acute compression or displaced fracture of the cervical spine. CT of abdomen pelvis showed unchanged appearance to dilatation of bilateral renal collecting systems. Chest x-ray unremarkable. Troponin negative ?3. Magnesium within normal limits. TSH within normal limits. MRI unremarkable. EEG showed no abnormality. Neurology consulted who feels patient can be discharged from a neurologic standpoint. Orthostatic vitals negative after IV fluids. Ortho vitals not initially completed on admission prior to IV fluids. Echocardiogram pending at discharge and will be reviewed prior to discharge. Patient follows with Dr. Suarez. Echocardiogram September 2016 showed an EF of 60%. Patient has had recurrent episodes of syncope/LOC, stating 5 previous episodes. Occurs while standing. Again, suspect secondary to orthostatic hypotension. Recommend keeping adequately hydrated. Continue follow up with PCP, nephrology, cardiology and urology. 2. Chest pain-patient reports this was very brief in nature, not associated with other symptoms and has not recurred. Troponin negative ?3. EKG without ST-T changes. 3. CAD status post PCI-patient with NSTEMI September 2016 which required stenting with HECTOR to left circumflex. Catheterization also showed significant disease in the inferior branch of diagonal 1 and mid LAD. Echocardiogram September 2016 showed an EF of 60%. Continue aspirin, statin, Brilinta, metoprolol, lisinopril, isosorbide. Patient follows with Dr. Suarez. 4. History of nonsustained ventricular tachycardia-secondary to above. 5. Acute kidney injury on chronic kidney disease stage III-Resolved with IV fluids. Creatinine at baseline at discharge. Patient follows with Dr. Lr. 6. Neurogenic bladder-continue home self catheterization regimen. Associated frequent UTIs. Urinalysis admission unremarkable. Patient on chronic preventative antibiotic therapy with trimethoprim. UTI ruled out. IV abx discontinued. 7. Hypertension-stable, continue home regimen. 8. Hyperlipidemia-continue statin. Triglycerides 347. LDL 69. HDL 28. Patient already on atorvastatin 80 mg daily. Consider adding additional agent. 9. Tobacco dependence-encourage smoking cessation. Nicotine replacement patch if desired. 10. Chronic back pain secondary to lumbar canal stenosis/sciatica/osteoarthritis-continue home gabapentin regimen. 11. Depression-continue home Lexapro regimen. General: Alert, Oriented x3, Cooperative, No apparent distress HEENT: Atraumatic, PERRLA, EOMI, Normocephalic Neck: Supple, No JVD, Negative Carotid Bruits Lungs: Clear to auscultation, Normal air movement Cardiovascular: Regular rate, Regular Rhythm, Normal S1, Normal S2, No murmurs Abdomen: Bowel Sounds Present, Soft, Non Tender, Non-Distended Extremities: No clubbing, No cyanosis, No edema, Capillary Refill Less than 3 Seconds Skin: No rashes, No breakdown Musculoskeletal: No Tenderness to Palpation of Joints or Extremities Neurological: Cranial nerves II-XII grossly intact, Neuro grossly intact Psych/Mental Status: Normal Affect, Appropriate Patient seen and examined prior to discharge. Physical assessment as noted above. Patient stable for discharge home with the follow-up recommendations as noted above. This patient was seen by LOTTIE Alvarenga under the supervision of Dr. Azul. Discharge Diet: Low fat/ Low Cholesterol, Renal Diet Discharge Activity: Return to Normal Activity Call your doctor if you observe: Inability to urinate, Shortness of breath, Dizziness, Fainting spells, Chest pain, Increased palpitations (irregular heartbeat) Home Medications: Medications to take at Discharge Ergocalciferol [Vitamin D] 50,000 unit PO QWEEK 04/21/15 Escitalopram Oxalate [Lexapro] 5 mg PO DAILY 04/21/15 Fish Oil/Dha/Epa [Fish Oil 1,200 mg Fish Oil] 1 ea PO DAILY 04/21/15 Allopurinol [Zyloprim] 100 mg PO DAILY 07/25/15 Hydrocodone Bitart/Apap 5-325 [[place] 5/325] 1 tab PO Q6H PRN PRN 07/25/15 Trimethoprim 1 tab PO QODAY 04/27/16 Atorvastatin Calcium [Lipitor] 80 mg PO QHS #30 tab 10/01/16 Metoprolol Tartrate [Lopressor (beta rachel)] 25 mg PO BID #60 tab 10/01/16 Ticagrelor [Brilinta] 90 mg PO BID #60 tab 10/01/16 Aspirin 325 mg PO DAILY@0800 04/07/17 Isosorbide Mononitrate [Isosorbide Mononitrate ER] 30 mg PO DAILY 04/07/17 gabapentin 600 mg tablet 300 mg PO BID 05/10/17 vitamin B complex and vitamin C no.20-folic acid 1 mg capsule 1 cap PO QDAY 05/10/17 lisinopril 10 mg tablet 10 mg PO QDAY #30 tab 05/12/17 Primary Care Physician: Brennan Ty MD [Primary Care Provider] - Please follow up with your Primary Care Physician in: 1 Week Please Follow Up With: Pascual Suarez MD When: 1-2 Weeks Please Follow Up With: Risa Lr DO When: 1-2 Weeks Please Follow Up With: German Quiñones MD When: As scheduled. Disposition: Home Minutes spent on discharge:: 35 Patient Condition:: Stable Medical Necessity - Tobacco Use Smoking Status: Current every day smoker Meaningful Use Info Meaningful Use Diagnoses (Choose all that apply): None applicable <Parker Azul - Last Filed: 09/01/17 16:18> Discharge Date and Diagnosis - Secondary Discharge Diagnosis Chronic Problems (Last Reviewed 05/12/17 @ 11:25 by Tamiko Cabrera) Chronic kidney disease, stage 3 (Chronic) History of coronary artery stent placement (Chronic ~09/29/16) PCI-HECTOR-Mid Cx Atherosclerosis of coronary artery of [place] heart without angina pectoris (Chronic) PCI-HECTOR-Mid Cx 09/29/16 Sleep-disordered breathing (Chronic) NSVT (nonsustained ventricular tachycardia) (Chronic) Smoking addiction (Chronic) Hypertension (Chronic) Hyperlipidemia (Chronic) Osteoarthritis (Chronic) Spinal stenosis of lumbar region (Chronic) Chronic radicular lumbar pain (Chronic) STEMI (ST elevation myocardial infarction) (Chronic) Sciatica (Chronic) Hospital Course and Treatment Operations: None Procedures: 2-D Echocardiogram, Electroencephalogram Summary of Care Provided: Patient seen and examined independent. Agree with the above note by the nurse practitioner. The patient is a 47 year old M is with syncope. [place] to be vasovagal in etiology. Patient is instructed to drink more fluids. [] Discharge Diet: Low fat/ Low Cholesterol, Renal Diet Discharge Activity: Return to Normal Activity Call your doctor if you observe: Inability to urinate, Shortness of breath, Dizziness, Fainting spells, Chest pain, Increased palpitations (irregular heartbeat) Disposition: Home Patient Condition:: Stable Meaningful Use Info Meaningful Use Diagnoses (Choose all that apply): None applicable Code Visit OBSV E&M: 81668 Observation care discharge
--- NOTE | 2017-09-01 10:54 | DS.PCM_ITS ---
Addendum entered and electronically signed by LOTTIE Alvarenga 09/01/17 15:36: Code Visit Patient evaluated by cardiology prior to discharge. Echo completed most recently in September 2016 showed an ejection fraction of 60%. It was not felt that echocardiogram needed repeated at this time. Cardiology suspecting syncopal episode secondary to vasovagal origin. No further testing found necessary at this time. Patient stable at time of discharge as previously noted. Original Note: <Halle Molina - Last Filed: 09/01/17 15:34> Discharge Date and Diagnosis Date of Admission: 08/31/17 Date of Discharge: 09/01/17 - Primary Discharge Diagnosis Active and Suspected Problems (Last Reviewed 05/12/17 @ 11:25 by Tamiko Cabrera) 1. Syncope, seizure ruled out. Suspected secondary to orthostatic hypotension. 2. Chest pain- ACS ruled out. 3. SOURAV on CKD III - Secondary Discharge Diagnosis Chronic Problems (Last Reviewed 05/12/17 @ 11:25 by Tamiko Cabrera) Chronic kidney disease, stage 3 (Chronic) History of coronary artery stent placement (Chronic ~09/29/16) PCI-HECTOR-Mid Cx Atherosclerosis of coronary artery of [place] heart without angina pectoris ( Chronic) PCI-HECTOR-Mid Cx 09/29/16 Sleep-disordered breathing (Chronic) NSVT (nonsustained ventricular tachycardia) (Chronic) Smoking addiction (Chronic) Hypertension (Chronic) Hyperlipidemia (Chronic) Osteoarthritis (Chronic) Spinal stenosis of lumbar region (Chronic) Chronic radicular lumbar pain (Chronic) STEMI (ST elevation myocardial infarction) (Chronic) Sciatica (Chronic) Hospital Course and Treatment Imaging Results: Diagnostic Data Brain CT 08/31/17 00:40 IMPRESSION: 1. No CT evidence of acute intracranial hemorrhage. 2. Left-sided scalp contusion. Electronically Signed: Keara Gambino MD at 1:36 EDT , Service support , Cervical Spine CT 08/31/17 00:40 IMPRESSION: No CT evidence of acute compression or displaced fracture of the cervical spine. Electronically Signed: Keara Gambino MD at 1:29 EDT , Service support , Abdomen/Pelvis CT 08/31/17 00:45 IMPRESSION: 1. Hepatic steatosis with focal sparing near the gallbladder fossa and near the edis hepatis. 2. Status post partial right-sided colon resection. 3. Apparent ureteral diversion with ileal conduit. 4. Unchanged appearance to dilatation of bilateral renal collecting systems. Electronically Signed: Keara Gambino MD at 1:51 EDT , Service support , Chest X-Ray 08/31/17 00:50 IMPRESSION: No radiographic evidence of acute cardiopulmonary disease. Electronically Signed: Keara Gambino MD at 1:26 EDT , Service support , Brain MRI 09/01/17 07:05 IMPRESSION: Normal unenhanced and enhanced MRI of the brain. Electronically Signed: Jb Walker MD at 10:14 EDT , Service support , Dr. Waterman- Neurology Operations: None Procedures: 2-D Echocardiogram, Electroencephalogram Summary of Care Provided: Patient is a 47-year-old male admitted 08/30/17 due to syncope with collapse and chest pain. He has a past medical history of CAD with NSTEMI requiring PCI in September 2016, hypertension, hyperlipidemia, chronic back pain, tobacco dependence, chronic kidney disease stage III, history of nonsustained ventricular tachycardia, osteoarthritis, neurogenic bladder requiring self-catheterization, frequent UTIs, depression. 1. Syncope with fall/ seizure ruled out-suspect secondary to orthostatic hypotension. Patient's reports patient was shaking following his collapse and lost control of his bladder. Patient denies history of seizures. Brain CT showed no evidence of acute intracranial hemorrhage. Left-sided scalp contusion. CT of cervical spine showed no evidence of acute compression or displaced fracture of the cervical spine. CT of abdomen pelvis showed unchanged appearance to dilatation of bilateral renal collecting systems. Chest x-ray unremarkable. Troponin negative ?3. Magnesium within normal limits. TSH within normal limits. MRI unremarkable. EEG showed no abnormality. Neurology consulted who feels patient can be discharged from a neurologic standpoint. Orthostatic vitals negative after IV fluids. Ortho vitals not initially completed on admission prior to IV fluids. Echocardiogram pending at discharge and will be reviewed prior to discharge. Patient follows with Dr. Suarez. Echocardiogram September 2016 showed an EF of 60%. Patient has had recurrent episodes of syncope/LOC, stating 5 previous episodes. Occurs while standing. Again, suspect secondary to orthostatic hypotension. Recommend keeping adequately hydrated. Continue follow up with PCP, nephrology, cardiology and urology. 2. Chest pain-patient reports this was very brief in nature, not associated with other symptoms and has not recurred. Troponin negative ?3. EKG without ST- T changes. 3. CAD status post PCI-patient with NSTEMI September 2016 which required stenting with HECTOR to left circumflex. Catheterization also showed significant disease in the inferior branch of diagonal 1 and mid LAD. Echocardiogram September 2016 showed an EF of 60%. Continue aspirin, statin, Brilinta, metoprolol, lisinopril , isosorbide. Patient follows with Dr. Suarez. 4. History of nonsustained ventricular tachycardia-secondary to above. 5. Acute kidney injury on chronic kidney disease stage III-Resolved with IV fluids. Creatinine at baseline at discharge. Patient follows with Dr. Lr. 6. Neurogenic bladder-continue home self catheterization regimen. Associated frequent UTIs. Urinalysis admission unremarkable. Patient on chronic preventative antibiotic therapy with trimethoprim. UTI ruled out. IV abx discontinued. 7. Hypertension-stable, continue home regimen. 8. Hyperlipidemia-continue statin. Triglycerides 347. LDL 69. HDL 28. Patient already on atorvastatin 80 mg daily. Consider adding additional agent. 9. Tobacco dependence-encourage smoking cessation. Nicotine replacement patch if desired. 10. Chronic back pain secondary to lumbar canal stenosis/sciatica/osteoarthritis -continue home gabapentin regimen. 11. Depression-continue home Lexapro regimen. General: Alert, Oriented x3, Cooperative, No apparent distress HEENT: Atraumatic, PERRLA, EOMI, Normocephalic Neck: Supple, No JVD, Negative Carotid Bruits Lungs: Clear to auscultation, Normal air movement Cardiovascular: Regular rate, Regular Rhythm, Normal S1, Normal S2, No murmurs Abdomen: Bowel Sounds Present, Soft, Non Tender, Non-Distended Extremities: No clubbing, No cyanosis, No edema, Capillary Refill Less than 3 Seconds Skin: No rashes, No breakdown Musculoskeletal: No Tenderness to Palpation of Joints or Extremities Neurological: Cranial nerves II-XII grossly intact, Neuro grossly intact Psych/Mental Status: Normal Affect, Appropriate Patient seen and examined prior to discharge. Physical assessment as noted above. Patient stable for discharge home with the follow-up recommendations as noted above. This patient was seen by LOTTIE Alvarenga under the supervision of Dr. Azul. Discharge Diet: Low fat/ Low Cholesterol, Renal Diet Discharge Activity: Return to Normal Activity Call your doctor if you observe: Inability to urinate, Shortness of breath, Dizziness, Fainting spells, Chest pain, Increased palpitations (irregular heartbeat) Home Medications: Medications to take at Discharge Ergocalciferol [Vitamin D] 50,000 unit PO QWEEK 04/21/15 Escitalopram Oxalate [Lexapro] 5 mg PO DAILY 04/21/15 Fish Oil/Dha/Epa [Fish Oil 1,200 mg Fish Oil] 1 ea PO DAILY 04/21/15 Allopurinol [Zyloprim] 100 mg PO DAILY 07/25/15 Hydrocodone Bitart/Apap 5-325 [[place] 5/325] 1 tab PO Q6H PRN PRN 07/25/15 Trimethoprim 1 tab PO QODAY 04/27/16 Atorvastatin Calcium [Lipitor] 80 mg PO QHS #30 tab 10/01/16 Metoprolol Tartrate [Lopressor (beta rachel)] 25 mg PO BID #60 tab 10/01/16 Ticagrelor [Brilinta] 90 mg PO BID #60 tab 10/01/16 Aspirin 325 mg PO DAILY@0800 04/07/17 Isosorbide Mononitrate [Isosorbide Mononitrate ER] 30 mg PO DAILY 04/07/17 gabapentin 600 mg tablet 300 mg PO BID 05/10/17 vitamin B complex and vitamin C no.20-folic acid 1 mg capsule 1 cap PO QDAY 10/20 lisinopril 10 mg tablet 10 mg PO QDAY #30 tab 05/12/17 Primary Care Physician: Brennan Ty MD [Primary Care Provider] - Please follow up with your Primary Care Physician in: 1 Week Please Follow Up With: Pascual Suarez MD When: 1-2 Weeks Please Follow Up With: Risa Lr DO When: 1-2 Weeks Please Follow Up With: German Quiñones MD When: As scheduled. Disposition: Home Minutes spent on discharge:: 35 Patient Condition:: Stable Medical Necessity - Tobacco Use Smoking Status: Current every day smoker Meaningful Use Info Meaningful Use Diagnoses (Choose all that apply): None applicable <LathaParker - Last Filed: 09/01/17 16:18> Discharge Date and Diagnosis - Secondary Discharge Diagnosis Chronic Problems (Last Reviewed 05/12/17 @ 11:25 by Tamiko Cabrera) Chronic kidney disease, stage 3 (Chronic) History of coronary artery stent placement (Chronic ~09/29/16) PCI-HECTOR-Mid Cx Atherosclerosis of coronary artery of [place] heart without angina pectoris ( Chronic) PCI-HECTOR-Mid Cx 09/29/16 Sleep-disordered breathing (Chronic) NSVT (nonsustained ventricular tachycardia) (Chronic) Smoking addiction (Chronic) Hypertension (Chronic) Hyperlipidemia (Chronic) Osteoarthritis (Chronic) Spinal stenosis of lumbar region (Chronic) Chronic radicular lumbar pain (Chronic) STEMI (ST elevation myocardial infarction) (Chronic) Sciatica (Chronic) Hospital Course and Treatment Operations: None Procedures: 2-D Echocardiogram, Electroencephalogram Summary of Care Provided: Patient seen and examined independent. Agree with the above note by the nurse practitioner. The patient is a 47 year old M is with syncope. [place] to be vasovagal in etiology. Patient is instructed to drink more fluids. [] Discharge Diet: Low fat/ Low Cholesterol, Renal Diet Discharge Activity: Return to Normal Activity Call your doctor if you observe: Inability to urinate, Shortness of breath, Dizziness, Fainting spells, Chest pain, Increased palpitations (irregular heartbeat) Disposition: Home Patient Condition:: Stable Meaningful Use Info Meaningful Use Diagnoses (Choose all that apply): None applicable Code Visit OBSV E&M: 54970 Observation care discharge
--- NOTE | 2017-09-01 11:18 | CASEMGMT ---
Face to Face with patient for initial transition planning/care coordination assessment. CRISTIAN ORTIZ introduced self and role at [facility], pt voices understanding and consents to assessment at this time. Pt is lying in bed in no distress at this time. Pt is sleepy but A/O x4 at this time and answers all questions appropriately at this time. Care providers, pharmacy, and demographics verified. See attached link. Pt voices no further concerns/needs at this time. Advised pt to ask for CM if any further questions/concerns/needs arise, voices understanding. PLAN: [place] CRISTIAN ORTIZ
--- NOTE | 2017-09-01 13:01 | PCM.PROGNOTE ---
<Halle Molina - Last Filed: 09/01/17 13:04> Subjective: Patient seen and examined. No acute events overnight. Patient denies dizziness, lightheadedness. No further episodes of syncope/presyncope. - Physical Exam General: Alert, Oriented x3, Cooperative, No apparent distress HEENT: Atraumatic, PERRLA, EOMI, Normocephalic Neck: Supple, No JVD, Negative Carotid Bruits Lungs: Clear to auscultation, Normal air movement Cardiovascular: Regular rate, Regular Rhythm, Normal S1, Normal S2, No murmurs Abdomen: Bowel Sounds Present, Soft, Non Tender, Non-Distended Extremities: No clubbing, No cyanosis, No edema, Capillary Refill Less than 3 Seconds Skin: No rashes, No breakdown Musculoskeletal: No Tenderness to Palpation of Joints or Extremities Neurological: Cranial nerves II-XII grossly intact, Neuro grossly intact Psych/Mental Status: Normal Affect, Appropriate Vital Signs Temp Pulse Resp BP Pulse Ox 98.7 F 73 18 165/103 H 97 09/01/17 10:00 09/01/17 11:25 09/01/17 10:00 09/01/17 10:15 09/01/17 11:15 Oxygen Delivery Method Room Air Weight: 98.2 kg Body Mass Index (BMI) 28.5 Orthostatic Vital Signs Start: 08/31/17 20:22 Freq: 0600 Status: Active Protocol: Activity Type Activity Date Activity User E-Sign Co-Sign Detail Recorded Client Recorded Date Recorded By Document 09/01/17 06:00 KG [id number] 09/01/17 06:47 KG 09/01/17 06:00 Orthostatic Vitals Standing -Blood Pressure (90/60-120/80) 126/77 H -Extremity Use Left Arm -Pulse Rate (60-100) 62 Sitting -Blood Pressure (90/60-120/80) 137/88 H -Extremity Use Left Arm -Pulse Rate (60-100) 85 Lying -Blood Pressure (90/60-120/80) 143/83 H -Extremity Use Left Arm -Pulse Rate (60-100) 60 Intake and Output for Last 24 Hours 08/30/17 08/31/17 09/01/17 23:59 23:59 23:59 Intake Total 3231 / 3231 2495 / 2495 Output Total 1999 2550 / 2550 Balance 1231 / 1231 -55 / -55 Microbiology Past 72 Hours 08/31/17 04:10 Urine Culture - Preliminary Urine, Clean Catch Mixed Gram Positive Organisms Laboratory Tests Past 24 Hrs 08/31/17 09/01/17 09/01/17 14:34 06:10 06:10 WBC 8.6 RBC 4.47 L Hgb 12.9 L Hct 40.8 MCV 91.3 MCH 28.9 MCHC 31.6 L RDW 13.7 RDW Differential 45.3 H Plt Count 235 MPV 8.8 Sodium 142 Potassium 4.3 Chloride 114 H Carbon Dioxide 22.0 Anion Gap 6 BUN 19 H Creatinine 1.67 H Estim Creat Clear Calc 60.47 Est GFR (MDRD) Af Amer 56 L Est GFR (MDRD) Non-Af 47 L BUN/Creatinine Ratio 11.4 Glucose 178 H Calcium 8.5 Troponin I < 0.02 Medical Necessity - Tobacco Use Smoking Status: Current every day smoker Assessment/Plan Patient is a 47-year-old male admitted 08/30/17 due to syncope with collapse and chest pain. He has a past medical history of CAD with NSTEMI requiring PCI in September 2016, hypertension, hyperlipidemia, chronic back pain, tobacco dependence, chronic kidney disease stage III, history of nonsustained ventricular tachycardia, osteoarthritis, neurogenic bladder requiring self-catheterization, frequent UTIs, depression. 1. Syncope with fall/possible seizure-patient's reports patient was shaking following his collapse and lost control of his bladder. Patient denies history of seizures. Brain CT showed no evidence of acute intracranial hemorrhage. Left-sided scalp contusion. CT of cervical spine showed no evidence of acute compression or displaced fracture of the cervical spine. CT of abdomen pelvis showed unchanged appearance to dilatation of bilateral renal collecting systems. Chest x-ray unremarkable. Troponin negative ?3. Magnesium within normal limits. TSH within normal limits. MRI of brain unremarkable. EEG without abnormality. Echocardiogram pending. Neurology consulted who feel patient is stable for discharge from neurology standpoint. Orthostatic vitals negative. Consult cardiology given repeat episodes of syncope. 2. Chest pain-patient reports this was very brief in nature, not associated with other symptoms and has not recurred. Troponin negative ?3. Obtain echocardiogram as noted above. EKG without ST-T changes. 3. CAD status post PCI-patient with NSTEMI September 2016 which required stenting with HECTOR to left circumflex. Catheterization also showed significant disease in the inferior branch of diagonal 1 and mid LAD. Echocardiogram September 2016 showed an EF of 60%. Continue aspirin, statin, Brilinta, metoprolol, lisinopril, isosorbide. Patient follows with Dr. Suarez. 4. History of nonsustained ventricular tachycardia-secondary to above. 5. Acute kidney injury on chronic kidney disease stage III-improved with IV fluids. Monitor BMP. Patient follows with Dr. Lr. 6. Neurogenic bladder-continue home self catheterization regimen. Associated frequent UTIs. Urinalysis admission unremarkable. Patient on chronic preventative antibiotic therapy with trimethoprim. UTI ruled out. IV abx discontinued. Culture pending. 7. Hypertension-stable, continue home regimen. 8. Hyperlipidemia-continue statin. Triglycerides 347. LDL 69. HDL 28. Patient already on atorvastatin 80 mg daily. Consider adding additional agent. 9. Tobacco dependence-encourage smoking cessation. Nicotine replacement patch if desired. 10. Chronic back pain secondary to lumbar canal stenosis/sciatica/osteoarthritis-continue home gabapentin regimen. 11. Depression-continue home Lexapro regimen. DVT prophylaxis-heparin subcu, SCDs. This patient was seen by LOTTIE Alvarenga under the supervision of Dr. Azul. <Parker Azul - Last Filed: 09/01/17 16:17> - Physical Exam General: Alert, Cooperative, No apparent distress HEENT: Atraumatic, Normocephalic Neck: Supple, No JVD, Negative Carotid Bruits Lungs: Clear to auscultation, Normal air movement Cardiovascular: Regular rate, Regular Rhythm, Normal S1, Normal S2, No murmurs Abdomen: Bowel Sounds Present, Soft, Non Tender, Non-Distended Extremities: No edema, No Calf Tenderness Skin: No rashes, No breakdown Psych/Mental Status: Normal Affect, Appropriate Vital Signs Temp Pulse Resp BP Pulse Ox 36.8 C 79 18 149/95 H 94 09/01/17 14:51 09/01/17 15:44 09/01/17 14:51 09/01/17 14:51 09/01/17 14:51 Oxygen Delivery Method Room Air Weight: 98.2 kg Body Mass Index (BMI) 28.5 Orthostatic Vital Signs Start: 08/31/17 20:22 Freq: 0600 Status: Active Protocol: Activity Type Activity Date Activity User E-Sign Co-Sign Detail Recorded Client Recorded Date Recorded By Document 09/01/17 06:00 KG [id number] 09/01/17 06:47 KG 09/01/17 06:00 Orthostatic Vitals Standing -Blood Pressure (90/60-120/80) 126/77 H -Extremity Use Left Arm -Pulse Rate (60-100) 62 Sitting -Blood Pressure (90/60-120/80) 137/88 H -Extremity Use Left Arm -Pulse Rate (60-100) 85 Lying -Blood Pressure (90/60-120/80) 143/83 H -Extremity Use Left Arm -Pulse Rate (60-100) 60 Intake and Output for Last 24 Hours 08/30/17 08/31/17 09/01/17 23:59 23:59 23:59 Intake Total 3231 / 3231 3041 / 3041 Output Total 1999 3200 / 3200 Balance 1231 / 1231 -159 / -159 Microbiology Past 72 Hours 08/31/17 04:10 Urine Culture - Preliminary Urine, Clean Catch Mixed Gram Positive Organisms Laboratory Tests Past 24 Hrs 09/01/17 09/01/17 06:10 06:10 WBC 8.6 RBC 4.47 L Hgb 12.9 L Hct 40.8 MCV 91.3 MCH 28.9 MCHC 31.6 L RDW 13.7 RDW Differential 45.3 H Plt Count 235 MPV 8.8 Sodium 142 Potassium 4.3 Chloride 114 H Carbon Dioxide 22.0 Anion Gap 6 BUN 19 H Creatinine 1.67 H Estim Creat Clear Calc 60.47 Est GFR (MDRD) Af Amer 56 L Est GFR (MDRD) Non-Af 47 L BUN/Creatinine Ratio 11.4 Glucose 178 H Calcium 8.5 Assessment/Plan Patient seen and examined independent. Agree with the above notes by the nurse practitioner. 1. Syncope: Patient has had several episodes and patient does endorse some feeling flushed and diaphoretic before these episodes the patient was a more concerned because it seemed at this recent episode was without warning. Patient was seen in consultation by cardiology feels that these are actually vasovagal. Patient advised to drink appropriate amount of fluids. Patient does state that he monitors his fluid intake as he does not want to drink too much because he does have to self catheterize given a bladder reconstruction that he had had many years ago. Otherwise patient is doing well and will be discharged to home in stable condition.
--- NOTE | 2017-09-01 13:04 | PN_ITS ---
<Halle Molina - Last Filed: 09/01/17 13:04> Subjective: Patient seen and examined. No acute events overnight. Patient denies dizziness , lightheadedness. No further episodes of syncope/presyncope. - Physical Exam General: Alert, Oriented x3, Cooperative, No apparent distress HEENT: Atraumatic, PERRLA, EOMI, Normocephalic Neck: Supple, No JVD, Negative Carotid Bruits Lungs: Clear to auscultation, Normal air movement Cardiovascular: Regular rate, Regular Rhythm, Normal S1, Normal S2, No murmurs Abdomen: Bowel Sounds Present, Soft, Non Tender, Non-Distended Extremities: No clubbing, No cyanosis, No edema, Capillary Refill Less than 3 Seconds Skin: No rashes, No breakdown Musculoskeletal: No Tenderness to Palpation of Joints or Extremities Neurological: Cranial nerves II-XII grossly intact, Neuro grossly intact Psych/Mental Status: Normal Affect, Appropriate Vital Signs Temp Pulse Resp BP Pulse Ox 98.7 F 73 18 165/103 H 97 09/01/17 10:00 09/01/17 11:25 09/01/17 10:00 09/01/17 10:15 09/01/17 11:15 Oxygen Delivery Method Room Air Weight: 98.2 kg Body Mass Index (BMI) 28.5 Orthostatic Vital Signs Start: 08/31/17 20:22 Freq: 0600 Status: Active Protocol: Activity Type Activity Date Activity User E-Sign Co-Sign Detail Recorded Client Recorded Date Recorded By Document 09/01/17 06:00 KG [id number] 09/01/17 06:47 KG 09/01/17 06:00 Orthostatic Vitals Standing -Blood Pressure (90/60-120/80) 126/77 H -Extremity Use Left Arm -Pulse Rate (60-100) 62 Sitting -Blood Pressure (90/60-120/80) 137/88 H -Extremity Use Left Arm -Pulse Rate (60-100) 85 Lying -Blood Pressure (90/60-120/80) 143/83 H -Extremity Use Left Arm -Pulse Rate (60-100) 60 Intake and Output for Last 24 Hours 08/30/17 08/31/17 09/01/17 23:59 23:59 23:59 Intake Total 3231 / 3231 2495 / 2495 Output Total 1999 2550 / 2550 Balance 1231 / 1231 -55 / -55 Microbiology Past 72 Hours 08/31/17 04:10 Urine Culture - Preliminary Urine, Clean Catch Mixed Gram Positive Organisms Laboratory Tests Past 24 Hrs 08/31/17 09/01/17 09/01/17 14:34 06:10 06:10 WBC 8.6 RBC 4.47 L Hgb 12.9 L Hct 40.8 MCV 91.3 MCH 28.9 MCHC 31.6 L RDW 13.7 RDW Differential 45.3 H Plt Count 235 MPV 8.8 Sodium 142 Potassium 4.3 Chloride 114 H Carbon Dioxide 22.0 Anion Gap 6 BUN 19 H Creatinine 1.67 H Estim Creat Clear Calc 60.47 Est GFR (MDRD) Af Amer 56 L Est GFR (MDRD) Non-Af 47 L BUN/Creatinine Ratio 11.4 Glucose 178 H Calcium 8.5 Troponin I < 0.02 Medical Necessity - Tobacco Use Smoking Status: Current every day smoker Assessment/Plan Patient is a 47-year-old male admitted 08/30/17 due to syncope with collapse and chest pain. He has a past medical history of CAD with NSTEMI requiring PCI in September 2016, hypertension, hyperlipidemia, chronic back pain, tobacco dependence, chronic kidney disease stage III, history of nonsustained ventricular tachycardia, osteoarthritis, neurogenic bladder requiring self-catheterization, frequent UTIs, depression. 1. Syncope with fall/possible seizure-patient's reports patient was shaking following his collapse and lost control of his bladder. Patient denies history of seizures. Brain CT showed no evidence of acute intracranial hemorrhage. Left-sided scalp contusion. CT of cervical spine showed no evidence of acute compression or displaced fracture of the cervical spine. CT of abdomen pelvis showed unchanged appearance to dilatation of bilateral renal collecting systems. Chest x-ray unremarkable. Troponin negative ?3. Magnesium within normal limits. TSH within normal limits. MRI of brain unremarkable. EEG without abnormality. Echocardiogram pending. Neurology consulted who feel patient is stable for discharge from neurology standpoint. Orthostatic vitals negative. Consult cardiology given repeat episodes of syncope. 2. Chest pain-patient reports this was very brief in nature, not associated with other symptoms and has not recurred. Troponin negative ?3. Obtain echocardiogram as noted above. EKG without ST-T changes. 3. CAD status post PCI-patient with NSTEMI September 2016 which required stenting with HECTOR to left circumflex. Catheterization also showed significant disease in the inferior branch of diagonal 1 and mid LAD. Echocardiogram September 2016 showed an EF of 60%. Continue aspirin, statin, Brilinta, metoprolol, lisinopril , isosorbide. Patient follows with Dr. Suarez. 4. History of nonsustained ventricular tachycardia-secondary to above. 5. Acute kidney injury on chronic kidney disease stage III-improved with IV fluids. Monitor BMP. Patient follows with Dr. Lr. 6. Neurogenic bladder-continue home self catheterization regimen. Associated frequent UTIs. Urinalysis admission unremarkable. Patient on chronic preventative antibiotic therapy with trimethoprim. UTI ruled out. IV abx discontinued. Culture pending. 7. Hypertension-stable, continue home regimen. 8. Hyperlipidemia-continue statin. Triglycerides 347. LDL 69. HDL 28. Patient already on atorvastatin 80 mg daily. Consider adding additional agent. 9. Tobacco dependence-encourage smoking cessation. Nicotine replacement patch if desired. 10. Chronic back pain secondary to lumbar canal stenosis/sciatica/osteoarthritis -continue home gabapentin regimen. 11. Depression-continue home Lexapro regimen. DVT prophylaxis-heparin subcu, SCDs. This patient was seen by LOTTIE Alvarenga under the supervision of Dr. Azul. <Parker Azul - Last Filed: 09/01/17 16:17> - Physical Exam General: Alert, Cooperative, No apparent distress HEENT: Atraumatic, Normocephalic Neck: Supple, No JVD, Negative Carotid Bruits Lungs: Clear to auscultation, Normal air movement Cardiovascular: Regular rate, Regular Rhythm, Normal S1, Normal S2, No murmurs Abdomen: Bowel Sounds Present, Soft, Non Tender, Non-Distended Extremities: No edema, No Calf Tenderness Skin: No rashes, No breakdown Psych/Mental Status: Normal Affect, Appropriate Vital Signs Temp Pulse Resp BP Pulse Ox 36.8 C 79 18 149/95 H 94 09/01/17 14:51 09/01/17 15:44 09/01/17 14:51 09/01/17 14:51 09/01/17 14:51 Oxygen Delivery Method Room Air Weight: 98.2 kg Body Mass Index (BMI) 28.5 Orthostatic Vital Signs Start: 08/31/17 20:22 Freq: 0600 Status: Active Protocol: Activity Type Activity Date Activity User E-Sign Co-Sign Detail Recorded Client Recorded Date Recorded By Document 09/01/17 06:00 KG [id number] 09/01/17 06:47 KG 09/01/17 06:00 Orthostatic Vitals Standing -Blood Pressure (90/60-120/80) 126/77 H -Extremity Use Left Arm -Pulse Rate (60-100) 62 Sitting -Blood Pressure (90/60-120/80) 137/88 H -Extremity Use Left Arm -Pulse Rate (60-100) 85 Lying -Blood Pressure (90/60-120/80) 143/83 H -Extremity Use Left Arm -Pulse Rate (60-100) 60 Intake and Output for Last 24 Hours 08/30/17 08/31/17 09/01/17 23:59 23:59 23:59 Intake Total 3231 / 3231 3041 / 3041 Output Total 1999 3200 / 3200 Balance 1231 / 1231 -159 / -159 Microbiology Past 72 Hours 08/31/17 04:10 Urine Culture - Preliminary Urine, Clean Catch Mixed Gram Positive Organisms Laboratory Tests Past 24 Hrs 09/01/17 09/01/17 06:10 06:10 WBC 8.6 RBC 4.47 L Hgb 12.9 L Hct 40.8 MCV 91.3 MCH 28.9 MCHC 31.6 L RDW 13.7 RDW Differential 45.3 H Plt Count 235 MPV 8.8 Sodium 142 Potassium 4.3 Chloride 114 H Carbon Dioxide 22.0 Anion Gap 6 BUN 19 H Creatinine 1.67 H Estim Creat Clear Calc 60.47 Est GFR (MDRD) Af Amer 56 L Est GFR (MDRD) Non-Af 47 L BUN/Creatinine Ratio 11.4 Glucose 178 H Calcium 8.5 Assessment/Plan Patient seen and examined independent. Agree with the above notes by the nurse practitioner. 1. Syncope: Patient has had several episodes and patient does endorse some feeling flushed and diaphoretic before these episodes the patient was a more concerned because it seemed at this recent episode was without warning. Patient was seen in consultation by cardiology feels that these are actually vasovagal. Patient advised to drink appropriate amount of fluids. Patient does state that he monitors his fluid intake as he does not want to drink too much because he does have to self catheterize given a bladder reconstruction that he had had many years ago. Otherwise patient is doing well and will be discharged to home in stable condition.
--- NOTE | 2017-09-01 15:15 | PCM.CONS.C ---
Reason for Consult Date of Consultation: 09/01/17 Reason for Consultation: Syncope History of Present Illness: This is a 47-year-old male who presented with a syncopal episode. He was apparently at home he got up to go to the bathroom and he started complaining of feeling hot he took of his overshirt and then when he went to self catheterize he apparently passed out.. He has a cardiovascular history of STEMI in September 2016 which had stenting with HECTOR to left circumflex and it also showed significant disease in the inferior branch of diagonal 1 and mid LAD. Patient presented to the ER at that time with chest pain. Post stenting he had 2 episodes of nonsustained ventricular tachycardia. Patient underwent stress echocardiogram the [facility] on 11/11/16 to evaluate his LAD and diagonal systems, which apparently was negative for inducible ischemia of the anterior wall with baseline inferior hypokinesis as a result of his acute [place] previously. He also had a hypertensive blood pressure response to exercise. He also has a history of hypertension, hyperlipidemia, stage III kidney disease, obstructive sleep apnea, and tobacco abuse. He apparently has been prone to getting dehydrated and he was last seen in the office in May 2017 and at that time was noted to be hypertensive and had his lisinopril increased. His witnessed this and also saw him have what appeared to be tonic-clonic seizures. The emergency medical squad was called and brought him to the emergency room no significant arrhythmias were noted and he had a CAT scan as well as MRI of his head which did not demonstrate any significant abnormalities. Blood work is noted to be normal thus far. Echo from September 2016 showed an estimated ejection fraction of 60%, a moderator band in the right ventricle, and mild diffuse aortic thickening. Pt denies any chest pain since starting isosorbide. He denies any previous lightheadedness, dizziness, syncope/near syncope, claudication, nausea, PND, fever, or chills. He is seeing pain management for leg and lower back pain. Patient completed cardiac rehab, but does not exercise on a regular basis. Past Medical History Allergies/Adverse Reactions: Allergies sulfamethoxazole [From Bactrim] Allergy (Mild, Verified 08/31/17 03:38) Rash trimethoprim [From Bactrim] Allergy (Mild, Verified 08/31/17 03:38) Rash bupropion [From Wellbutrin] Adverse Reaction (Verified 08/31/17 03:38) Elevated BP Home Medications: Ambulatory Orders Medication Instructions Recorded Ergocalciferol [Vitamin D] 50,000 unit PO QWEEK 04/21/15 Escitalopram Oxalate [Lexapro] 5 mg PO DAILY 04/21/15 Fish Oil/Dha/Epa [Fish Oil 1,200 1 ea PO DAILY 04/21/15 mg Fish Oil] Allopurinol [Zyloprim] 100 mg PO DAILY 07/25/15 Hydrocodone Bitart/Apap 5-325 1 tab PO Q6H PRN PRN 07/25/15 [[place] 5/325] Trimethoprim 1 tab PO QODAY 04/27/16 Atorvastatin Calcium [Lipitor] 80 mg PO QHS #30 tab 10/01/16 Metoprolol Tartrate [Lopressor 25 mg PO BID #60 tab 10/01/16 (beta rachel)] Ticagrelor [Brilinta] 90 mg PO BID #60 tab 10/01/16 Aspirin 325 mg PO DAILY@0800 04/07/17 Isosorbide Mononitrate [Isosorbide 30 mg PO DAILY 04/07/17 Mononitrate ER] gabapentin 600 mg tablet 300 mg PO BID 05/10/17 vitamin B complex and vitamin C 1 cap PO QDAY 05/10/17 no.20-folic acid 1 mg capsule lisinopril 10 mg tablet 10 mg PO QDAY #30 tab 05/12/17 Past Medical History (Chronic Problems): Chronic Problems (Last Reviewed 05/12/17 @ 11:25 by Tamiko Cabrera) Chronic kidney disease, stage 3 (Chronic) History of coronary artery stent placement (Chronic ~09/29/16) PCI-HECTOR-Mid Cx Atherosclerosis of coronary artery of [place] heart without angina pectoris (Chronic) PCI-HECTOR-Mid Cx 09/29/16 Sleep-disordered breathing (Chronic) NSVT (nonsustained ventricular tachycardia) (Chronic) Smoking addiction (Chronic) Hypertension (Chronic) Hyperlipidemia (Chronic) Osteoarthritis (Chronic) Spinal stenosis of lumbar region (Chronic) Chronic radicular lumbar pain (Chronic) STEMI (ST elevation myocardial infarction) (Chronic) Sciatica (Chronic) Surgical History: - - Multiple urological surgeries including diversion of ureter, surgery for urethral stricture, renal stent placement, and ileoconduit placement Psychiatric History: No pertinent psych hx - *Family History Maternal Family History: Family History (Last Reviewed 05/12/17 @ 11:25 by Tamiko Cabrera) Grandfather CAD (coronary artery disease) History Items: No pertinent history Paternal Family History: Family History (Last Reviewed 05/12/17 @ 11:25 by Tamiko Cabrera) Grandfather CAD (coronary artery disease) History Items: Hypertension Smoking Status: Current every day smoker Alcohol: None Drugs: None Review of Systems - Review of Systems General: Denies: Fever, Night Sweats, Fatigue Cardiovascular: Reports: Syncope. Denies: Chest Discomfort, Shortness of Breath, Orthopnea, PND, Peripheral Edema, Palpitations, Lightheadedness, Dizziness, Near Syncope Respiratory: Denies: Cough, Sputum Production, Hemoptysis Gastrointestinal: Denies: Hematemesis, Hematochezia, Melena Genitourinary: Denies: Dysuria, Hematuria Skin: Denies: Rash Subjectve: Pleasant gentleman in no apparent distress eating lunch Objective: Vital Signs Temp Pulse Resp BP Pulse Ox 98.3 F 75 18 149/95 H 94 09/01/17 14:51 09/01/17 14:51 09/01/17 14:51 09/01/17 14:51 09/01/17 14:51 Oxygen Delivery Method Room Air Weight: 216 lb 7.903 oz Body Mass Index (BMI) 28.5 Orthostatic Vital Signs Start: 08/31/17 20:22 Freq: 0600 Status: Active Protocol: Activity Type Activity Date Activity User E-Sign Co-Sign Detail Recorded Client Recorded Date Recorded By Document 09/01/17 06:00 KG [id number] 09/01/17 06:47 KG 09/01/17 06:00 Orthostatic Vitals Standing -Blood Pressure (90/60-120/80) 126/77 H -Extremity Use Left Arm -Pulse Rate (60-100) 62 Sitting -Blood Pressure (90/60-120/80) 137/88 H -Extremity Use Left Arm -Pulse Rate (60-100) 85 Lying -Blood Pressure (90/60-120/80) 143/83 H -Extremity Use Left Arm -Pulse Rate (60-100) 60 Intake and Output for Last 24 Hours 08/30/17 08/31/17 09/01/17 23:59 23:59 23:59 Intake Total 3231 / 3231 3041 / 3041 Output Total 1999 3200 / 3200 Balance 1231 / 1231 -159 / -159 General: Awake, Alert, Oriented x 3 HEENT: PERRL, EOMI, Sclera Non Icteric Neck: Supple, Good ROM, No Lymph Node Enlargement Lungs: Clear to auscultation Cardiovascular: Regular Rhythm, Normal S1, Normal S2, No Murmurs, No Rubs, No Gallops Vascular: No Carotid Bruits, Normal Femoral Pulses, Normal Radial Pulses, Normal Dorsalis Pedal Pulse, Normal Posterior Tibial Pulses Abdomen: Bowel Sounds Present, Soft, Non Tender, No HSM, No Organomegaly Extremities: No Cyanosis, No Clubbing, No edema Neurological: No Focal Motor or Sensory Deficit 08/31/17 14:34: Troponin I < 0.02 09/01/17 06:10: WBC 8.6, RBC 4.47 L, Hgb 12.9 L, Hct 40.8, MCV 91.3, MCH 28.9, MCHC 31.6 L, RDW 13.7, RDW Differential 45.3 H, Plt Count 235, MPV 8.8 09/01/17 06:10: Sodium 142, Potassium 4.3, Chloride 114 H, Carbon Dioxide 22.0, Anion Gap 6, BUN 19 H, Creatinine 1.67 H, Est GFR (MDRD) Af Amer 56 L, Est GFR (MDRD) Non-Af 47 L, BUN/Creatinine Ratio 11.4, Glucose 178 H, Calcium 8.5 Rhythm: EKG: Normal sinus rhythm ECHO: Previously normal ejection fraction of 55-60% September 2016 Assessment/Plan 1. Syncopal episode The above appears to be vasodepressor in origin based on the history and symptomatology. He appears to be doing quite well at this time he did have preserved ejection fraction noted previously and he does have no EKG changes. My recommendation would be for him to continue with current medical therapy hydration and observation. The episode appears to be situational and therefore I do not think that he needs any invasive or noninvasive testing. The above has been discussed with the patient, his as well as the hospitalist. 2. Coronary artery disease The patient appears to be stable with respect to the above and has not had any anginal spells since starting the isosorbide. The plan is for him to continue the same. I would not suggest that we make any changes. 3. Hypertension His blood pressure appears to be under better control at this time my recommendation would be to continue him on the current medical therapy without making any changes. 4. Hyperlipidemia He will continue with the current lipid-lowering medications. Thank you for allowing me to participate in the care of your patient. Please don't hesitate to call if any issues arise
--- NOTE | 2017-09-01 15:18 | CON.PCM_ITS ---
Reason for Consult Date of Consultation: 09/01/17 Reason for Consultation: Syncope History of Present Illness: This is a 47-year-old male who presented with a syncopal episode. He was apparently at home he got up to go to the bathroom and he started complaining of feeling hot he took of his overshirt and then when he went to self catheterize he apparently passed out.. He has a cardiovascular history of STEMI in September 2016 which had stenting with HECTOR to left circumflex and it also showed significant disease in the inferior branch of diagonal 1 and mid LAD. Patient presented to the ER at that time with chest pain. Post stenting he had 2 episodes of nonsustained ventricular tachycardia. Patient underwent stress echocardiogram the [facility] on 11/11/16 to evaluate his LAD and diagonal systems, which apparently was negative for inducible ischemia of the anterior wall with baseline inferior hypokinesis as a result of his acute [place] previously. He also had a hypertensive blood pressure response to exercise. He also has a history of hypertension, hyperlipidemia, stage III kidney disease, obstructive sleep apnea, and tobacco abuse. He apparently has been prone to getting dehydrated and he was last seen in the office in May 2017 and at that time was noted to be hypertensive and had his lisinopril increased. His witnessed this and also saw him have what appeared to be tonic-clonic seizures. The emergency medical squad was called and brought him to the emergency room no significant arrhythmias were noted and he had a CAT scan as well as MRI of his head which did not demonstrate any significant abnormalities. Blood work is noted to be normal thus far. Echo from September 2016 showed an estimated ejection fraction of 60%, a moderator band in the right ventricle, and mild diffuse aortic thickening. Pt denies any chest pain since starting isosorbide. He denies any previous lightheadedness, dizziness, syncope/near syncope, claudication, nausea, PND, fever, or chills. He is seeing pain management for leg and lower back pain. Patient completed cardiac rehab, but does not exercise on a regular basis. Past Medical History Allergies/Adverse Reactions: Allergies sulfamethoxazole [From Bactrim] Allergy (Mild, Verified 08/31/17 03:38) Rash trimethoprim [From Bactrim] Allergy (Mild, Verified 08/31/17 03:38) Rash bupropion [From Wellbutrin] Adverse Reaction (Verified 08/31/17 03:38) Elevated BP Home Medications: Ambulatory Orders Medication Instructions Recorded Ergocalciferol [Vitamin D] 50,000 unit PO QWEEK 04/21/15 Escitalopram Oxalate [Lexapro] 5 mg PO DAILY 04/21/15 Fish Oil/Dha/Epa [Fish Oil 1,200 1 ea PO DAILY 04/21/15 mg Fish Oil] Allopurinol [Zyloprim] 100 mg PO DAILY 07/25/15 Hydrocodone Bitart/Apap 5-325 1 tab PO Q6H PRN PRN 07/25/15 [[place] 5/325] Trimethoprim 1 tab PO QODAY 04/27/16 Atorvastatin Calcium [Lipitor] 80 mg PO QHS #30 tab 10/01/16 Metoprolol Tartrate [Lopressor 25 mg PO BID #60 tab 10/01/16 (beta rachel)] Ticagrelor [Brilinta] 90 mg PO BID #60 tab 10/01/16 Aspirin 325 mg PO DAILY@0800 04/07/17 Isosorbide Mononitrate [Isosorbide 30 mg PO DAILY 04/07/17 Mononitrate ER] gabapentin 600 mg tablet 300 mg PO BID 05/10/17 vitamin B complex and vitamin C 1 cap PO QDAY 05/10/17 no.20-folic acid 1 mg capsule lisinopril 10 mg tablet 10 mg PO QDAY #30 tab 05/12/17 Past Medical History (Chronic Problems): Chronic Problems (Last Reviewed 05/12/17 @ 11:25 by Tamiko Cabrera) Chronic kidney disease, stage 3 (Chronic) History of coronary artery stent placement (Chronic ~09/29/16) PCI-HECTOR-Mid Cx Atherosclerosis of coronary artery of [place] heart without angina pectoris ( Chronic) PCI-HECTOR-Mid Cx 09/29/16 Sleep-disordered breathing (Chronic) NSVT (nonsustained ventricular tachycardia) (Chronic) Smoking addiction (Chronic) Hypertension (Chronic) Hyperlipidemia (Chronic) Osteoarthritis (Chronic) Spinal stenosis of lumbar region (Chronic) Chronic radicular lumbar pain (Chronic) STEMI (ST elevation myocardial infarction) (Chronic) Sciatica (Chronic) Surgical History: - - Multiple urological surgeries including diversion of ureter, surgery for urethral stricture, renal stent placement, and ileoconduit placement Psychiatric History: No pertinent psych hx - *Family History Maternal Family History: Family History (Last Reviewed 05/12/17 @ 11:25 by Tamiko Cabrera) Grandfather CAD (coronary artery disease) History Items: No pertinent history Paternal Family History: Family History (Last Reviewed 05/12/17 @ 11:25 by Tamiko Cabrera) Grandfather CAD (coronary artery disease) History Items: Hypertension Smoking Status: Current every day smoker Alcohol: None Drugs: None Review of Systems - Review of Systems General: Denies: Fever, Night Sweats, Fatigue Cardiovascular: Reports: Syncope. Denies: Chest Discomfort, Shortness of Breath , Orthopnea, PND, Peripheral Edema, Palpitations, Lightheadedness, Dizziness, Near Syncope Respiratory: Denies: Cough, Sputum Production, Hemoptysis Gastrointestinal: Denies: Hematemesis, Hematochezia, Melena Genitourinary: Denies: Dysuria, Hematuria Skin: Denies: Rash Subjectve: Pleasant gentleman in no apparent distress eating lunch Objective: Vital Signs Temp Pulse Resp BP Pulse Ox 98.3 F 75 18 149/95 H 94 09/01/17 14:51 09/01/17 14:51 09/01/17 14:51 09/01/17 14:51 09/01/17 14:51 Oxygen Delivery Method Room Air Weight: 216 lb 7.903 oz Body Mass Index (BMI) 28.5 Orthostatic Vital Signs Start: 08/31/17 20:22 Freq: 0600 Status: Active Protocol: Activity Type Activity Date Activity User E-Sign Co-Sign Detail Recorded Client Recorded Date Recorded By Document 09/01/17 06:00 KG [id number] 09/01/17 06:47 KG 09/01/17 06:00 Orthostatic Vitals Standing -Blood Pressure (90/60-120/80) 126/77 H -Extremity Use Left Arm -Pulse Rate (60-100) 62 Sitting -Blood Pressure (90/60-120/80) 137/88 H -Extremity Use Left Arm -Pulse Rate (60-100) 85 Lying -Blood Pressure (90/60-120/80) 143/83 H -Extremity Use Left Arm -Pulse Rate (60-100) 60 Intake and Output for Last 24 Hours 08/30/17 08/31/17 09/01/17 23:59 23:59 23:59 Intake Total 3231 / 3231 3041 / 3041 Output Total 1999 3200 / 3200 Balance 1231 / 1231 -159 / -159 General: Awake, Alert, Oriented x 3 HEENT: PERRL, EOMI, Sclera Non Icteric Neck: Supple, Good ROM, No Lymph Node Enlargement Lungs: Clear to auscultation Cardiovascular: Regular Rhythm, Normal S1, Normal S2, No Murmurs, No Rubs, No Gallops Vascular: No Carotid Bruits, Normal Femoral Pulses, Normal Radial Pulses, Normal Dorsalis Pedal Pulse, Normal Posterior Tibial Pulses Abdomen: Bowel Sounds Present, Soft, Non Tender, No HSM, No Organomegaly Extremities: No Cyanosis, No Clubbing, No edema Neurological: No Focal Motor or Sensory Deficit 08/31/17 14:34: Troponin I < 0.02 09/01/17 06:10: WBC 8.6, RBC 4.47 L, Hgb 12.9 L, Hct 40.8, MCV 91.3, MCH 28.9, MCHC 31.6 L, RDW 13.7, RDW Differential 45.3 H, Plt Count 235, MPV 8.8 09/01/17 06:10: Sodium 142, Potassium 4.3, Chloride 114 H, Carbon Dioxide 22.0, Anion Gap 6, BUN 19 H, Creatinine 1.67 H, Est GFR (MDRD) Af Amer 56 L, Est GFR ( MDRD) Non-Af 47 L, BUN/Creatinine Ratio 11.4, Glucose 178 H, Calcium 8.5 Rhythm: EKG: Normal sinus rhythm ECHO: Previously normal ejection fraction of 55-60% September 2016 Assessment/Plan 1. Syncopal episode The above appears to be vasodepressor in origin based on the history and symptomatology. He appears to be doing quite well at this time he did have preserved ejection fraction noted previously and he does have no EKG changes. My recommendation would be for him to continue with current medical therapy hydration and observation. The episode appears to be situational and therefore I do not think that he needs any invasive or noninvasive testing. The above has been discussed with the patient, his as well as the hospitalist. 2. Coronary artery disease The patient appears to be stable with respect to the above and has not had any anginal spells since starting the isosorbide. The plan is for him to continue the same. I would not suggest that we make any changes. 3. Hypertension His blood pressure appears to be under better control at this time my recommendation would be to continue him on the current medical therapy without making any changes. 4. Hyperlipidemia He will continue with the current lipid-lowering medications. Thank you for allowing me to participate in the care of your patient. Please don't hesitate to call if any issues arise
--- NOTE | 2017-09-01 16:18 | ECHOD_ITS ---
Reason For Study: Syncope/Near Syncope Procedure This was a 2D Doppler, Color Flow transthoracic echocardiogram. Exam performed portable in patient room. Left Ventricle Normal LV size. Left ventricular systolic function is normal. The estimated ejection fraction is 65 %. Transmitral diastolic flow velocities suggest mild (stage 1) diastolic dysfunction (reversed pattern). No regional wall motion abnormalities noted. Right Ventricle Normal RV size. Normal systolic function. Atria Normal left atrium. Normal right atrium. Mitral Valve Normal mitral valve. Tricuspid Valve Normal tricuspid valve. Mild (1+) tricuspid valve insufficiency. Pulmonary artery systolic pressure is 35 mmHg. Aortic Valve Trisinus/trileaflet aortic valve. Pulmonic Valve Normal pulmonic valve. Great Vessels Normal aortic root. The pulmonary artery is normal size. Normal inferior vena cava. Pericardium/Pleural No pericardial effusion. MMode/2D Measurements & Calculations LVIDd: 4.4 cm IVSd: 0.98 cm Ao root diam: 2.5 cm LVIDs: 2.7 cm LVPWd: 1.0 cm LA dimension: 3.7 cm RVDd: 3.7 cm FS: 39.0 % LAV(MOD-bp): 29.0 ml LA A4 area: 11.7 cm2 RA A4 area: 12.4 cm2 LAV(MOD-bp) Indexed: 13.1 ml/m2 LAV(MOD-sp2): 36.4 ml LAV(MOD-sp4): 23.7 ml Doppler Measurements & Calculations MV E max lewis: 78.1 cm/sec Lat Peak E' Lewis: 12.6 cm/sec Med Peak E' Lewis: 7.0 cm/sec MV A max lewis: 90.6 cm/sec E/E' lat: 6.2 E/E' med: 11.2 MV E/A: 0.86 Ao V2 max: 158.5 cm/sec LV V1 max: 118.1 cm/sec PA V2 max: 124.2 cm/sec Ao max P.1 mmHg LV V1 max P.6 mmHg Ao V2 mean: 110.6 cm/sec Ao mean P.4 mmHg Ao V2 VTI: 30.7 cm TR max lewis: 284.2 cm/sec TR max P.3 mmHg Interpretation Summary Normal LV size. Left ventricular systolic function is normal. The estimated ejection fraction is 65 %. Transmitral diastolic flow velocities suggest mild (stage 1) diastolic dysfunction (reversed pattern). Mild (1+) tricuspid valve insufficiency. Ordering Physician: LOTTIE Alvarenga Referring Physician: Rogelio Bentley Performed By: Ebonie Armendariz, BELL, RVT
== END 2017-09-01 16:41 | disposition home or self-care (01) ==
LOC: ED 02:25 → PCU 02:59
PROVIDERS: Nurse Practitioner Family; Admitting Provider Internal Medicine; Emergency Provider Emergency Medicine; Family Provider Family Medicine; PCP Family Medicine
DX: R55 Syncope and collapse (principal); I12.9 Hypertensive chronic kidney disease with stage 1 through stage 4 chronic kidney disease, or unspecified chronic kidney disease; N18.3 Chronic kidney disease, stage 3 (moderate); N17.9 Acute kidney failure, unspecified; R07.89 Other chest pain; E78.5 Hyperlipidemia, unspecified; G89.29 Other chronic pain; M19.90 Unspecified osteoarthritis, unspecified site; N31.9 Neuromuscular dysfunction of bladder, unspecified; S00.03XA Contusion of scalp, initial encounter; W18.39XA Other fall on same level, initial encounter; Y93.89 Activity, other specified; Y92.9 Unspecified place or not applicable; I25.10 Atherosclerotic heart disease of native coronary artery without angina pectoris; I25.2 Old myocardial infarction; I47.2 Ventricular tachycardia; M48.061 Spinal stenosis, lumbar region without neurogenic claudication; Z95.5 Presence of coronary angioplasty implant and graft; Z87.440 Personal history of urinary (tract) infections; Z79.899 Other long term (current) drug therapy; Z79.82 Long term (current) use of aspirin; R56.9 Unspecified convulsions; F32.9 Major depressive disorder, single episode, unspecified; G47.33 Obstructive sleep apnea (adult) (pediatric); F17.210 Nicotine dependence, cigarettes, uncomplicated
CPT/HCPCS: 36415; 70450; 70553; 71045; 72125; 74176; 80048; 80061; 81001; 83735; 84443; 84484; 85025; 85027; 87086; 87088; 93005; 93306; 96361; 96365; 96375; 99218; 99285; 99406; A9585; J7030; J7040; J7050; A4216; G0378

== ENCOUNTER 2017-12-19 02:47 | Observation (INO) | payer MEDICARE, SELFPAY ==
[2016-10-01 10:17] VITALS: BMI 27.0
[2017-12-19] VITALS (21 sets, daily range): BP systolic 126–147; BP diastolic 66–113; PULSE 66–90; RESP 16–18; TEMP 36.7–37; O2SAT 93–97; BMI 29.6; BMI 29.2
--- NOTE | 2017-12-19 03:19 | ED.VIS.GEN ---
History of Present Illness Chief Complaint: Chest Pain Informant: Patient Onset: Hours - 1 Context: Sudden Onset - at rest Timing: Continuous Quality: pressure, sharp nonpleuritic Location: central and left chest Current Severity: Mild Maximum Severity: Severe Worsened by: nothing Relieved by: ? if better after he took baby ASA Associated Symptoms: sweats, a little sob Narrative: Radiated up the left side of his head briefly but that is gone. No arm or jaw or back discomfort. He had a stent placed approximately 15 months ago, and had a stress a couple months after that that was negative. He has been having the same chest symptoms but only for a couple minutes at a time 2-3 times weekly for a while and his doctor put him on isosorbide. However tonight, this discomfort, which he considers his angina, has been ongoing for over an hour and has not resolved. He has taken nothing other than a baby aspirin since the pain started. - Past Medical History (1) Chronic kidney disease, stage 3 Status: Chronic (2) Chronic radicular lumbar pain Status: Chronic (3) History of coronary artery stent placement Status: Chronic Comment: PCI-HECTOR-Mid Cx 09/29/16 (4) Hyperlipidemia Status: Chronic (5) Hypertension Status: Chronic (6) Osteoarthritis Status: Chronic (7) Sciatica Status: Chronic (8) Spinal stenosis of lumbar region Status: Chronic Past Medical History - Allergies and Home Meds Allergies/Adverse Reactions: Allergies sulfamethoxazole [From Bactrim] Allergy (Mild, Verified 12/19/17 02:51) Rash trimethoprim [From Bactrim] Allergy (Mild, Verified 12/19/17 02:51) Rash bupropion [From Wellbutrin] Adverse Reaction (Verified 12/19/17 02:51) Elevated BP Primary Care Physician: Brennan Ty MD [Primary Care Provider] - Surgical History: - - Multiple urological surgeries including diversion of ureter, surgery for urethral stricture, renal stent placement, and ileoconduit placement Smoking Status: Current every day smoker - Family History Maternal Family History: Family History (Last Reviewed 09/12/17 @ 14:00 by Tamiko Cabrera) Grandfather CAD (coronary artery disease) Family History: Reports: No pertinent history Paternal Family History: Family History (Last Reviewed 09/12/17 @ 14:00 by Tamiko Kilner) Grandfather CAD (coronary artery disease) Family History: Reports: Hypertension Review of Systems All systems negative except as indicated General: Reports: Sweats. Denies: Chills, Fever Cardiovascular: Reports: Chest pain. Denies: Palpitations, Heart racing Respiratory: Reports: Dyspnea. Denies: Cough, Dyspnea on exertion, Orthopnea Gastrointestinal: Denies: Abdominal pain, Nausea, Vomiting Musculoskeletal: Denies: Swelling, Extremity Pain Physical Exam Vital Signs/Narrative: Vital Signs Temp Pulse Resp BP Pulse Ox 12/19/17 02:53 96 12/19/17 02:48 98.1 F 90 17 147/108 H 95 Inital Vital Signs reviewed: Yes General: Well nourished, Well developed Head: Normocephalic, Atraumatic Eyes: Perrl, EOMI ENT: Moist mucous membranes, No rhinorrhea Neck: Supple, Nontender, No JVD Cardiovascular: Regular rate, Regular rhythm, No murmurs Respiratory: No distress, CTA bilaterally, Chest nontender Abdomen: Soft, Nontender, Nondistended, Normal bowel sounds Back: Nontender, Normal Inspection Extremities: Nontender, No edema Skin: Normal color, No rash Neurological: Alert, Oriented x3, Cranial nerves II-XII grossly intact, Normal Strength, Normal Sensation Psychological: Normal affect Diagnostic/Tx/Re-eval Impressions Chest X-Ray 12/19/17 03:18 IMPRESSION: 1. Mild pulmonary congestion. 2. Patchy right basilar airspace disease could represent pneumonia. Electronically Signed: Keara Gambino MD at 3:46 EDT , Service support , 12/19/17 03:18 Chest 1 View (Portable) [RAD] Stat Laboratory Results 12/19/17 12/19/17 Range/Units 02:48 02:48 WBC 8.1 (4.4-11.0) K/mm3 RBC 5.02 (4.6-6.2) M/mm3 Hgb 15.2 (13.0-16.5) g/dl Hct 45.5 (40-54) % MCV 90.6 (80-94) fL MCH 30.3 (27.0-32.0) pg MCHC 33.4 (32-36) g/gl RDW 13.8 (11.6-14.6) % RDW Differential 45.3 H (35.1-43.9) fl Plt Count 237 (150-450) K/mm3 MPV 9.5 (6.2-12.0) fl Immature Gran % (Auto) 0.700 (0.0-0.9) % Neut % (Auto) 56.9 (47-70) % Lymph % (Auto) 30.0 (19-41) % [place] % (Auto) 8.2 (0-10) % Eos % (Auto) 3.7 (0-5) % Baso % (Auto) 0.5 (0-1) % Absolute Neuts (auto) 4.6 (2.0-7.7) X10^3/uL Absolute Lymphs (auto) 2.43 (0.83-4.51) X10^3/ul Total Counted Not Reportable Sodium 142 (136-145) mmol/L Potassium 3.9 (3.5-5.1) mmol/L Chloride 109 H (98-107) mmol/L Carbon Dioxide 23.0 (21.0-32.0) mmol/L Anion Gap 10 (5-15) BUN 17 (7-18) mg/dL Creatinine 2.07 H (0.70-1.30) mg/dL Estim Creat Clear Calc 48.78 ml/min Est GFR (MDRD) Af Amer 44 L (>60) mL/min Est GFR (MDRD) Non-Af 36 L (>60) mL/min BUN/Creatinine Ratio 8.2 L (10-20) RATIO Glucose 167 H (74-106) mg/dL Calcium 8.7 (8.5-10.1) mg/dL Troponin I < 0.015 (<0.045) ng/mL - Rhythm Strip Rhythm Strip: Sinus Rhythm Rate: 85 Ectopy: None - EKG Initial EKG Interpretation: Sinus Rhythm, No Acute Injury Pattern, - - nml axis. nml EKG. - Medical Decision Making Troponin is negative, other than chronic renal insufficiency, the rest of his labs are unremarkable. This includes the lack of a leukocytosis or leftward shift, his chest x-ray showing a possibility of an infiltrate, but my suspicion is that this does not represent infection. He has had no cough or symptoms of pneumonia, his symptoms were relatively abrupt, and although somewhat atypical, more consistent with angina than pulmonary in etiology. All of his discomfort is gone after taking 3 sublingual nitroglycerins. I discussed with cardiology Dr. Odonnell, he recommends admission and consultation, and giving him nitroglycerin. Patient is amenable to that. I placed nitroglycerin paste 1 inch on his chest wall since he is chest pain-free. Discussed with hospitalist. Will admit to observation telemetry. ED Disposition - Plan for ED Patient: Disposition: Acute Care Hospital [facility] Chief Complaint: Chest Pain Diagnosis: Chest pain, unspecified, Hx of coronary artery disease, Chronic kidney disease, stage 3 Referrals: Brennan Ty MD [Primary Care Provider] -
[2017-12-19 03:27] LABS: Absolute Lymphocyte Count 2.43 X10^3/ul (0.83-4.51); Absolute Neutrophil Count 4.6 X10^3/uL (2.0-7.7); Basophil# 0.04 X10^3/uL; Basophil% 0.5 % (0-1); Eosinophils% 3.7 % (0-5); Hematocrit 45.5 % (40-54); Hemoglobin 15.2 g/dl (13.0-16.5); Lymphocyte # 2.43 X10^3/ul (4.0); Mean Corp Hgb Conc 33.4 g/gl (32-36); Mean Corpuscular Hgb 30.3 pg (27.0-32.0); Mean Corpuscular Volume 90.6 fL (80-94); Mean Platelet Vol. 9.5 fl (6.2-12.0); Monocyte# 0.66 X10^3/uL; Monocyte% 8.2 % (0-10); Neutrophil % 56.9 % (47-70); Platelet Count 237 K/mm3 (150-450); RBC Distribution Width CV 13.8 % (11.6-14.6); RBC Distribution Width SD 45.3 fl (35.1-43.9); Red Blood Count 5.02 M/mm3 (4.6-6.2); White Blood Count 8.1 K/mm3 (4.4-11.0)
[2017-12-19 03:29] LABS: POSITIVE COUNT NO; POSITIVE DIFFERENTIAL NO; POSITIVE MORPHOLOGY NO
[2017-12-19 03:41] LABS: Anion Gap 10 (5-15); BUN 17 mg/dL (7-18); BUN/Creat Ratio 8.2 RATIO (10-20); Calcium,Total 8.7 mg/dL (8.5-10.1); Chloride 109 mmol/L (98-107); Creatinine, Serum 2.07 mg/dL (0.70-1.30); EST Glomerular Filtration Rate 36 mL/min (>60); Est Glom Filt Rate - Afr Amer 44 mL/min (>60); Estimated Creatinine Clearance 48.78 ml/min; Glucose 167 mg/dL (74-106); Potassium 3.9 mmol/L (3.5-5.1); Sodium Level 142 mmol/L (136-145)
--- NOTE | 2017-12-19 05:18 | HP.PCM_ITS ---
Problem List (1) Chest pain, unspecified Status: Acute (2) Hx of coronary artery disease Status: Chronic History of Present Illness Date of Admission: 12/19/17 Chief Complaint: Chest pain ?6 weeks The patient is a 47 year old M with a significant history of hypertension, CAD status post stents, chronic kidney disease, neurogenic bladder, sciatica, herniated disc, spinal stenosis, arthritis of back, who presented with chest pain ?6 weeks. Patient stated that in the past 6 weeks his chest pain has been a transient lasting a few minutes however a day before his admission the chest pain persisted for about 1 hour. Associated with his symptoms is diaphoresis, nausea and lightheadedness. He described a transient episode of left-sided headache associated with his chest pain. As aforementioned patient had a coronary stent placed in September 2016 and reportedly had unremarkable stress test after his stents were placed. Dr. 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 Past Medical History Past Medical History (Chronic Problems): Chronic Problems (Last Reviewed 12/19/17 @ 07:33 by Manolo Thao MD) Neurogenic bladder (Chronic) Hx of coronary artery disease (Chronic) Chronic kidney disease, stage 3 (Chronic) History of coronary artery stent placement (Chronic ~09/29/16) PCI-HECTOR-Mid Cx 09/29/16 Atherosclerosis of coronary artery of [place] heart without angina pectoris ( Chronic) PCI-HECTOR-Mid Cx 09/29/16 Sleep-disordered breathing (Chronic) NSVT (nonsustained ventricular tachycardia) (Chronic) Smoking addiction (Chronic) Hypertension (Chronic) Hyperlipidemia (Chronic) Osteoarthritis (Chronic) Spinal stenosis of lumbar region (Chronic) Chronic radicular lumbar pain (Chronic) STEMI (ST elevation myocardial infarction) (Chronic) Sciatica (Chronic) Medical History: Medical History (Last Reviewed 12/19/17 @ 07:33 by Manolo Thao MD) Neurogenic bladder (Chronic) N31.9 Chronic kidney disease, stage 3 (Chronic) N18.3 Atherosclerosis of coronary artery of [place] heart without angina pectoris ( Chronic) I25.10 PCI-HECTOR-Mid Cx 09/29/16 Sleep-disordered breathing (Chronic) G47.30 NSVT (nonsustained ventricular tachycardia) (Chronic) I47.2 Smoking addiction (Chronic) F17.200 Hypertension (Chronic) I10 Hyperlipidemia (Chronic) E78.5 Osteoarthritis (Chronic) M19.90 Spinal stenosis of lumbar region (Chronic) M48.06 Chronic radicular lumbar pain (Chronic) M54.16, G89.29 STEMI (ST elevation myocardial infarction) (Chronic) Sciatica (Chronic) M54.30 Neurogenic bladder N31.9 Allergies sulfamethoxazole [From Bactrim] Allergy (Mild, Verified 12/19/17 02:51) Rash trimethoprim [From Bactrim] Allergy (Mild, Verified 12/19/17 02:51) Rash bupropion [From Wellbutrin] Adverse Reaction (Verified 12/19/17 02:51) Elevated BP Home Medications: Ambulatory Orders Medication Instructions Recorded Ergocalciferol [Vitamin D] 50,000 unit PO QWEEK 04/21/15 Escitalopram Oxalate [Lexapro] 5 mg PO DAILY 04/21/15 Fish Oil/Dha/Epa [Fish Oil 1,200 1 ea PO DAILY 04/21/15 mg Fish Oil] Allopurinol [Zyloprim] 100 mg PO DAILY 07/25/15 Hydrocodone Bitart/Apap 5-325 1 tab PO Q6H PRN PRN 07/25/15 [[place] 5/325] Trimethoprim 1 tab PO QODAY 04/27/16 Atorvastatin Calcium [Lipitor] 80 mg PO QHS #30 tab 10/01/16 Metoprolol Tartrate [Lopressor 25 mg PO BID #60 tab 10/01/16 (beta rachel)] Ticagrelor [Brilinta] 90 mg PO BID #60 tab 10/01/16 Aspirin 325 mg PO DAILY@0800 04/07/17 Isosorbide Mononitrate [Isosorbide 30 mg PO DAILY 04/07/17 Mononitrate ER] gabapentin 600 mg tablet 300 mg PO TID 05/10/17 vitamin B complex and vitamin C 1 cap PO QDAY 05/10/17 no.20-folic acid 1 mg capsule Surgical History: Surgical History (Last Reviewed 12/19/17 @ 07:33 by Manolo Thao MD) History of coronary artery stent placement (Chronic) Onset Date: ~09/29/16 Z95.5 PCI-HECTOR-Mid Cx 09/29/16 History of renal stent Z98.890 ileoconduit placement percutaneous nephrostomy urethral stricture surgery urinary tract diverson Surgical History: - - Multiple urological surgeries including diversion of ureter, surgery for urethral stricture, renal stent placement, and ileoconduit placement Lives: Spouse/ Significant Other Smoking Status: Current every day smoker Alcohol: None - *Family History Maternal Family History: Family History (Last Reviewed 12/19/17 @ 07:29 by Manolo Thao MD) Grandfather CAD (coronary artery disease) History Items: No pertinent history Paternal Family History: Family History (Last Reviewed 12/19/17 @ 07:29 by Manolo Thao MD) Grandfather CAD (coronary artery disease) History Items: Hypertension Review of Systems Constitutional: Denies: Chills, Fever, Weight Change HEENT: Denies: Head Aches, Sinus Congestion, Sinus Drainage Cardiovascular: Reports: Chest Pain Respiratory: Denies: Cough, Shortness of breath at rest, Sputum production Gastrointestinal: Reports: Nausea Genitourinary: Reports: Retention - Chronic?straight cath himself. Musculoskeletal: Denies: Joint Pain, Joint Tenderness Skin: Denies: Rash, Wounds Neurological: Denies: Numbness, Tingling, Focal weakness Psychiatric: Denies: Anxiety, Depression, Homicidal Ideations, Suicidal Ideations Hematologic/ Lymphatic: Denies: Easy Bruising, Easy Bleeding VTE Information - Inpt Only VTE Present on Admission: No VTE Mechan Device Prophylaxis: None VTE Pharm Prophylaxis ordered?: Yes Patient Problems: Active and Suspected Problems (Last Reviewed 12/19/17 @ 07:33 by Manolo Thao MD) [id number] kidney injury (Acute) Chest pain, unspecified (Acute) - Physical Exam General: Alert, Oriented x3, Cooperative HEENT: Atraumatic, PERRLA, EOMI, Normocephalic Neck: Supple, No JVD, Negative Carotid Bruits Lungs: Clear to auscultation Cardiovascular: Regular rate, No murmurs Abdomen: Bowel Sounds Present, Soft, Non Tender, - - Healed previous abdominal incisions. Extremities: No clubbing Skin: No rashes, No breakdown Musculoskeletal: No Tenderness to Palpation of Joints or Extremities Neurological: Cranial nerves II-XII grossly intact Psych/Mental Status: Normal Affect, Appropriate Vital Signs Temp Pulse Resp BP Pulse Ox 98.1 F 80 18 144/104 H 95 12/19/17 02:48 12/19/17 04:45 12/19/17 05:06 12/19/17 04:45 12/19/17 04:45 Oxygen Flow Rate (L/min) 2 Oxygen Delivery Method Nasal Cannula Weight: 101.9 kg Body Mass Index (BMI) 29.6 Laboratory Tests Past 24 Hrs 12/19/17 12/19/17 02:48 02:48 WBC 8.1 RBC 5.02 Hgb 15.2 Hct 45.5 MCV 90.6 MCH 30.3 MCHC 33.4 RDW 13.8 RDW Differential 45.3 H Plt Count 237 MPV 9.5 Immature Gran % (Auto) 0.700 Neut % (Auto) 56.9 Lymph % (Auto) 30.0 [place] % (Auto) 8.2 Eos % (Auto) 3.7 Baso % (Auto) 0.5 Absolute Neuts (auto) 4.6 Absolute Lymphs (auto) 2.43 Total Counted Not Reportable Sodium 142 Potassium 3.9 Chloride 109 H Carbon Dioxide 23.0 Anion Gap 10 BUN 17 Creatinine 2.07 H Estim Creat Clear Calc 48.78 Est GFR (MDRD) Af Amer 44 L Est GFR (MDRD) Non-Af 36 L BUN/Creatinine Ratio 8.2 L Glucose 167 H Calcium 8.7 Troponin I < 0.015 Assessment/Plan All Active Problems (Last Reviewed 12/19/17 @ 07:33 by Manolo Thao MD) Qikcu-cq-shafqzj kidney injury (Acute) Chest pain, unspecified (Acute) Syncope and collapse (Acute) Atypical chest pain (Acute) The patient is a 47 year old M with a significant history of hypertension, CAD status post stents, chronic kidney disease, neurogenic bladder, sciatica, herniated disc, spinal stenosis, arthritis of back, who presented with chest pain. Chest pain Chest x-ray showed mild primary congestion and right basilar airspace disease. The patient has no fever, or leukocytosis. Pneumonia is unlikely. He does not have severe shortness of breath making heart failure unlikely. Will order BMP. Admit to a monitored bed on PCU Patient is on home Brilinta and aspirin 325 mg daily; continued SL NTG 0.4 mg prn as needed for chest pain Lipitor 80 mg continued Imdur continued Serial cardiac enzymes Stat EKG as needed for chest pain Cardiology consult. N.p.o. for now. Home metoprolol held pending further evaluation by cardiology. CKD Stable creatinine Neurogenic bladder Patient self catheter himself at home. Self-catheterization in the hospital. Depression/anxiety Lexapro continued Gout Allopurinol continued Back pain [place] and gabapentin continued DVT prophylaxis Subcutaneous heparin. Code Visit OBSV E&M: 00129 Initial observation care L3
--- NOTE | 2017-12-19 05:33 | NURSING ---
carolynn conner overnight stocker aware that pt ok for floor.
--- NOTE | 2017-12-19 07:28 | PCM.CONS.C ---
Reason for Consult Date of Consultation: 12/19/17 Reason for Consultation: Chest discomfort History of Present Illness: This is a 47-year-old male who presents to the emergency room with chest discomfort which he says occurred while he was minimally active. He has been having the same chest discomfort for the preceding 6 weeks and this time he felt that it was significant enough for him to come to the emergency room. He has a cardiovascular history of STEMI in September 2016 which had stenting with HECTOR to left circumflex and it also showed significant disease in the inferior branch of diagonal 1 and mid LAD. Patient presented to the ER at that time with chest pain. Post stenting he had 2 episodes of nonsustained ventricular tachycardia. Patient underwent stress echocardiogram the [facility] on 11/11/16 to evaluate his LAD and diagonal systems, which apparently was negative for inducible ischemia of the anterior wall with baseline inferior hypokinesis as a result of his acute [place] previously. He also had a hypertensive blood pressure response to exercise. He also has a history of hypertension, hyperlipidemia, stage III kidney disease, obstructive sleep apnea, and tobacco abuse. Patient had some mild chest pain post procedure and was prescribed Imdur which has completely resolved. On 07/10/17 patient was admitted to the [facility] with severe back pain and hematuria from his left kidney. Patient states that they did not find a kidney stone and did not stop his Brilinta. He is found to have acute kidney injury with a creatinine of 2.4 and he received an indwelling Bennett catheter. Bilateral ultrasound showed moderate bilateral hydronephrosis. Patient was then subsequently discharged. He was recently seen in the office by his machine umbrella tipper Dr. Suarez and at that time was not having any chest discomfort problems. In the emergency room he was noted to be pain-free his EKG was noted to be normal and cardiac enzymes normal. The patient is however very concerned about the nature of the chest discomfort because he says it is very similar to what he had before. Past Medical History Allergies/Adverse Reactions: Allergies sulfamethoxazole [From Bactrim] Allergy (Mild, Verified 12/19/17 02:51) Rash trimethoprim [From Bactrim] Allergy (Mild, Verified 12/19/17 02:51) Rash bupropion [From Wellbutrin] Adverse Reaction (Verified 12/19/17 02:51) Elevated BP Home Medications: Ambulatory Orders Medication Instructions Recorded Ergocalciferol [Vitamin D] 50,000 unit PO QWEEK 04/21/15 Escitalopram Oxalate [Lexapro] 5 mg PO DAILY 04/21/15 Fish Oil/Dha/Epa [Fish Oil 1,200 1 ea PO DAILY 04/21/15 mg Fish Oil] Allopurinol [Zyloprim] 100 mg PO DAILY 07/25/15 Hydrocodone Bitart/Apap 5-325 1 tab PO Q6H PRN PRN 07/25/15 [[place] 5/325] Trimethoprim 1 tab PO QODAY 04/27/16 Atorvastatin Calcium [Lipitor] 80 mg PO QHS #30 tab 10/01/16 Metoprolol Tartrate [Lopressor 25 mg PO BID #60 tab 10/01/16 (beta rachel)] Ticagrelor [Brilinta] 90 mg PO BID #60 tab 10/01/16 Aspirin 325 mg PO DAILY@0800 04/07/17 Isosorbide Mononitrate [Isosorbide 30 mg PO DAILY 04/07/17 Mononitrate ER] gabapentin 600 mg tablet 300 mg PO TID 05/10/17 vitamin B complex and vitamin C 1 cap PO QDAY 05/10/17 no.20-folic acid 1 mg capsule Past Medical History (Chronic Problems): Chronic Problems (Last Reviewed 12/19/17 @ 07:33 by Manolo Thao MD) Neurogenic bladder (Chronic) Hx of coronary artery disease (Chronic) Chronic kidney disease, stage 3 (Chronic) History of coronary artery stent placement (Chronic ~09/29/16) PCI-HECTOR-Mid Cx 09/29/16 Atherosclerosis of coronary artery of [place] heart without angina pectoris (Chronic) PCI-HECTOR-Mid Cx 09/29/16 Sleep-disordered breathing (Chronic) NSVT (nonsustained ventricular tachycardia) (Chronic) Smoking addiction (Chronic) Hypertension (Chronic) Hyperlipidemia (Chronic) Osteoarthritis (Chronic) Spinal stenosis of lumbar region (Chronic) Chronic radicular lumbar pain (Chronic) STEMI (ST elevation myocardial infarction) (Chronic) Sciatica (Chronic) Surgical History: - - Multiple urological surgeries including diversion of ureter, surgery for urethral stricture, renal stent placement, and ileoconduit placement - *Family History Maternal Family History: Family History (Last Reviewed 12/19/17 @ 07:29 by Manolo Thao MD) Grandfather CAD (coronary artery disease) History Items: No pertinent history Paternal Family History: Family History (Last Reviewed 12/19/17 @ 07:29 by Manolo Thao MD) Grandfather CAD (coronary artery disease) History Items: Hypertension Smoking Status: Current every day smoker Alcohol: None Drugs: None Review of Systems - Review of Systems General: Denies: Fever, Night Sweats, Fatigue Cardiovascular: Reports: Chest Discomfort, Chest Discomfort at Rest. Denies: Shortness of Breath, Orthopnea, PND, Peripheral Edema, Palpitations, Lightheadedness, Dizziness, Near Syncope, Syncope Respiratory: Denies: Cough, Sputum Production, Hemoptysis Gastrointestinal: Denies: Hematemesis, Hematochezia, Melena Genitourinary: Denies: Dysuria, Hematuria Skin: Denies: Rash Subjectve: Pleasant gentleman in no apparent distress Objective: Vital Signs Temp Pulse Resp BP Pulse Ox 98.0 F 86 16 143/109 H 96 12/19/17 06:00 12/19/17 06:00 12/19/17 06:00 12/19/17 06:00 12/19/17 06:00 Oxygen Flow Rate (L/min) 2 Oxygen Delivery Method Nasal Cannula Weight: 221 lb 5.506 oz Body Mass Index (BMI) 29.2 Intake and Output for Last 24 Hours 12/17/17 12/18/17 12/19/17 23:59 23:59 23:59 Intake Total 240 / 240 Balance 240 / 240 General: Awake, Alert, Oriented x 3 HEENT: PERRL, EOMI, Sclera Non Icteric Neck: Supple, Good ROM, No Lymph Node Enlargement Lungs: Clear to auscultation Cardiovascular: Regular Rhythm, Normal S1, Normal S2, No Murmurs, No Rubs, No Gallops Vascular: No Carotid Bruits, Normal Femoral Pulses, Normal Radial Pulses, Normal Dorsalis Pedal Pulse, Normal Posterior Tibial Pulses Abdomen: Bowel Sounds Present, Soft, Non Tender, No HSM, No Organomegaly Extremities: No Cyanosis, No Clubbing, No edema Neurological: No Focal Motor or Sensory Deficit Rhythm: EKG: Normal sinus rhythm with no acute changes Assessment/Plan 1. Recent onset angina Patient has a history of known coronary artery disease and presents with recent onset angina which appears to be occurring more frequently and also with minimal activity. Based on the above it was felt that he needs to have an evaluation of this and we discussed stress testing versus limited invasive cardiac catheterization to assess his coronary anatomy. Of note is the fact that he does have stage III renal dysfunction. He is agreeable to a cardiac catheterization and he will be hydrated appropriately prior to this. In the meantime he will continue with his ticagrelor Continue isosorbide Continue low-dose beta-rachel. 2. Risk factor modification He will continue with aggressive risk factor modification with aggressive lipid lowering medications. Thank you for allowing me to participate in the care of your patient. Please don't hesitate to call if any issues arise Addendum post cardiac catheterization. Cardiac catheterization demonstrated the following: Normal left main coronary artery. Left anterior descending artery with mid 50-60% stenosis. First diagonal vessel with inferior branch with 70-80% stenosis unchanged from before. Left circumflex artery with previously placed stent patent. Dominant right coronary artery with no significant disease. Total contrast used 27 cc. In view of the above findings my recommendation would be to continue him on the beta-rachel and isosorbide and have him follow-up with his primary machine umbrella tipper Dr. Enrrique Suarez. Should he have further chest discomfort then consideration should be given to intervening on the left anterior descending artery/diagonal system. Aggressive hydration postprocedure for the next 6 hours. Above discussed with the patient, spouse and hospitalist.
--- NOTE | 2017-12-19 07:33 | CON.PCM_ITS ---
Reason for Consult Date of Consultation: 12/19/17 Reason for Consultation: Chest discomfort History of Present Illness: This is a 47-year-old male who presents to the emergency room with chest discomfort which he says occurred while he was minimally active. He has been having the same chest discomfort for the preceding 6 weeks and this time he felt that it was significant enough for him to come to the emergency room. He has a cardiovascular history of STEMI in September 2016 which had stenting with HECTOR to left circumflex and it also showed significant disease in the inferior branch of diagonal 1 and mid LAD. Patient presented to the ER at that time with chest pain. Post stenting he had 2 episodes of nonsustained ventricular tachycardia. Patient underwent stress echocardiogram the [facility] on 02/18 to evaluate his LAD and diagonal systems, which apparently was negative for inducible ischemia of the anterior wall with baseline inferior hypokinesis as a result of his acute AL previously. He also had a hypertensive blood pressure response to exercise. He also has a history of hypertension, hyperlipidemia, stage III kidney disease, obstructive sleep apnea, and tobacco abuse. Patient had some mild chest pain post procedure and was prescribed Imdur which has completely resolved. On 07/10/17 patient was admitted to the [facility] with severe back pain and hematuria from his left kidney. Patient states that they did not find a kidney stone and did not stop his Brilinta. He is found to have acute kidney injury with a creatinine of 2.4 and he received an indwelling Bennett catheter. Bilateral ultrasound showed moderate bilateral hydronephrosis. Patient was then subsequently discharged. He was recently seen in the office by his active directory engineer Dr. Suarez and at that time was not having any chest discomfort problems. In the emergency room he was noted to be pain-free his EKG was noted to be normal and cardiac enzymes normal. The patient is however very concerned about the nature of the chest discomfort because he says it is very similar to what he had before. Past Medical History Allergies/Adverse Reactions: Allergies sulfamethoxazole [From Bactrim] Allergy (Mild, Verified 12/19/17 02:51) Rash trimethoprim [From Bactrim] Allergy (Mild, Verified 12/19/17 02:51) Rash bupropion [From Wellbutrin] Adverse Reaction (Verified 12/19/17 02:51) Elevated BP Home Medications: Ambulatory Orders Medication Instructions Recorded Ergocalciferol [Vitamin D] 50,000 unit PO QWEEK 04/21/15 Escitalopram Oxalate [Lexapro] 5 mg PO DAILY 04/21/15 Fish Oil/Dha/Epa [Fish Oil 1,200 1 ea PO DAILY 04/21/15 mg Fish Oil] Allopurinol [Zyloprim] 100 mg PO DAILY 07/25/15 Hydrocodone Bitart/Apap 5-325 1 tab PO Q6H PRN PRN 07/25/15 [[place] 5/325] Trimethoprim 1 tab PO QODAY 04/27/16 Atorvastatin Calcium [Lipitor] 80 mg PO QHS #30 tab 10/01/16 Metoprolol Tartrate [Lopressor 25 mg PO BID #60 tab 10/01/16 (beta rachel)] Ticagrelor [Brilinta] 90 mg PO BID #60 tab 10/01/16 Aspirin 325 mg PO DAILY@0800 04/07/17 Isosorbide Mononitrate [Isosorbide 30 mg PO DAILY 04/07/17 Mononitrate ER] gabapentin 600 mg tablet 300 mg PO TID 05/10/17 vitamin B complex and vitamin C 1 cap PO QDAY 05/10/17 no.20-folic acid 1 mg capsule Past Medical History (Chronic Problems): Chronic Problems (Last Reviewed 12/19/17 @ 07:33 by Manolo Thao MD) Neurogenic bladder (Chronic) Hx of coronary artery disease (Chronic) Chronic kidney disease, stage 3 (Chronic) History of coronary artery stent placement (Chronic ~09/29/16) PCI-HECTOR-Mid Cx 09/29/16 Atherosclerosis of coronary artery of [place] heart without angina pectoris ( Chronic) PCI-HECTOR-Mid Cx 09/29/16 Sleep-disordered breathing (Chronic) NSVT (nonsustained ventricular tachycardia) (Chronic) Smoking addiction (Chronic) Hypertension (Chronic) Hyperlipidemia (Chronic) Osteoarthritis (Chronic) Spinal stenosis of lumbar region (Chronic) Chronic radicular lumbar pain (Chronic) STEMI (ST elevation myocardial infarction) (Chronic) Sciatica (Chronic) Surgical History: - - Multiple urological surgeries including diversion of ureter, surgery for urethral stricture, renal stent placement, and ileoconduit placement - *Family History Maternal Family History: Family History (Last Reviewed 12/19/17 @ 07:29 by Manolo Thao MD) Grandfather CAD (coronary artery disease) History Items: No pertinent history Paternal Family History: Family History (Last Reviewed 12/19/17 @ 07:29 by Manolo Thao MD) Grandfather CAD (coronary artery disease) History Items: Hypertension Smoking Status: Current every day smoker Alcohol: None Drugs: None Review of Systems - Review of Systems General: Denies: Fever, Night Sweats, Fatigue Cardiovascular: Reports: Chest Discomfort, Chest Discomfort at Rest. Denies: Shortness of Breath, Orthopnea, PND, Peripheral Edema, Palpitations, Lightheadedness, Dizziness, Near Syncope, Syncope Respiratory: Denies: Cough, Sputum Production, Hemoptysis Gastrointestinal: Denies: Hematemesis, Hematochezia, Melena Genitourinary: Denies: Dysuria, Hematuria Skin: Denies: Rash Subjectve: Pleasant gentleman in no apparent distress Objective: Vital Signs Temp Pulse Resp BP Pulse Ox 98.0 F 86 16 143/109 H 96 12/19/17 06:00 12/19/17 06:00 12/19/17 06:00 12/19/17 06:00 12/19/17 06:00 Oxygen Flow Rate (L/min) 2 Oxygen Delivery Method Nasal Cannula Weight: 221 lb 5.506 oz Body Mass Index (BMI) 29.2 Intake and Output for Last 24 Hours 12/17/17 12/18/17 12/19/17 23:59 23:59 23:59 Intake Total 240 / 240 Balance 240 / 240 General: Awake, Alert, Oriented x 3 HEENT: PERRL, EOMI, Sclera Non Icteric Neck: Supple, Good ROM, No Lymph Node Enlargement Lungs: Clear to auscultation Cardiovascular: Regular Rhythm, Normal S1, Normal S2, No Murmurs, No Rubs, No Gallops Vascular: No Carotid Bruits, Normal Femoral Pulses, Normal Radial Pulses, Normal Dorsalis Pedal Pulse, Normal Posterior Tibial Pulses Abdomen: Bowel Sounds Present, Soft, Non Tender, No HSM, No Organomegaly Extremities: No Cyanosis, No Clubbing, No edema Neurological: No Focal Motor or Sensory Deficit Rhythm: EKG: Normal sinus rhythm with no acute changes Assessment/Plan 1. Recent onset angina Patient has a history of known coronary artery disease and presents with recent onset angina which appears to be occurring more frequently and also with minimal activity. Based on the above it was felt that he needs to have an evaluation of this and we discussed stress testing versus limited invasive cardiac catheterization to assess his coronary anatomy. Of note is the fact that he does have stage III renal dysfunction. He is agreeable to a cardiac catheterization and he will be hydrated appropriately prior to this. * In the meantime he will continue with his ticagrelor * Continue isosorbide * Continue low-dose beta-rachel. * 2. Risk factor modification He will continue with aggressive risk factor modification with aggressive lipid lowering medications. Thank you for allowing me to participate in the care of your patient. Please don't hesitate to call if any issues arise Addendum post cardiac catheterization. Cardiac catheterization demonstrated the following: Normal left main coronary artery. Left anterior descending artery with mid 50-60% stenosis. First diagonal vessel with inferior branch with 70-80% stenosis unchanged from before. Left circumflex artery with previously placed stent patent. Dominant right coronary artery with no significant disease. Total contrast used 27 cc. In view of the above findings my recommendation would be to continue him on the beta-rachel and isosorbide and have him follow-up with his primary active directory engineer Dr. Enrrique Suarez. Should he have further chest discomfort then consideration should be given to intervening on the left anterior descending artery/diagonal system. Aggressive hydration postprocedure for the next 6 hours. Above discussed with the patient, spouse and hospitalist.
[2017-12-19] MEDS: Folic Acid/Vitamin B Comp W-C 1 Capsule 1 CAP PO (08:15)
[2017-12-19] MEDS: Escitalopram Oxalate 10 MG Tablet 5 MG PO (08:15)
[2017-12-19] MEDS: Allopurinol 100 MG Tablet PO (08:15)
[2017-12-19] MEDS: Gabapentin 300 MG Capsule PO ×3 (08:15→16:39)
[2017-12-19] MEDS: Isosorbide Mononitrate 30 MG Tablet PO ×2 (08:15→08:18)
[2017-12-19] MEDS: TICAGRELOR 90 MG TABLET PO (08:16)
[2017-12-19] MEDS: 0.9% Normal Saline 1,000 ML 150 ML IV ×2 (08:32→13:26)
[2017-12-19 08:37] LABS: BNP,B-Type NATRIURETIC PEPTIDE 15.4 pg/mL (0-100)
--- NOTE | 2017-12-19 09:13 | PCM.PN.HOSP ---
Patient Problems: Active and Suspected Problems (Last Reviewed 12/19/17 @ 07:33 by Manolo Thao MD) Iuabi-bk-ryfgeqg kidney injury (Acute) Chest pain, unspecified (Acute) Subjective: NAD, continues to have left sided mild chest similar to the chest pain with his previous TX, no SOB Vitals/I&O's: Vital Signs Temp Pulse Resp BP Pulse Ox 98.3 F 75 17 127/77 H 95 12/19/17 08:12 12/19/17 08:12 12/19/17 08:12 12/19/17 08:12 12/19/17 08:12 Oxygen Flow Rate (L/min) 2 Oxygen Delivery Method Nasal Cannula Weight: 221 lb 5.506 oz Body Mass Index (BMI) 29.2 Intake and Output for Last 24 Hours 12/17/17 12/18/17 12/19/17 23:59 23:59 23:59 Intake Total 240 / 240 Balance 240 / 240 General: Alert, Oriented x3, Cooperative, No apparent distress HEENT: Atraumatic, EOMI, Normocephalic Oral: Moist Mucosa Neck: Supple, No JVD Lungs: Clear to auscultation, Normal air movement, No rhonchi, No wheeze, No rales Cardiovascular: Regular rate, Regular Rhythm, Normal S1, Normal S2, No murmurs Abdomen: Soft, Non Tender, Non-Distended, No Hepato-splenomegaly Psych/Mental Status: Normal Affect, Appropriate Laboratory Results 12/19/17 06:40: Troponin I < 0.015 12/19/17 06:40: B-Natriuretic Peptide 15.4 Current Medications Hydrocodone Bitart/Acetaminophen ([place] 5mg-325mg) 1 tablet PO Q6H PRN PRN PRN Reason: PAIN Allopurinol (Zyloprim) 100 mg PO DAILY [facility] Last Admin: 12/19/17 08:15 Dose: 100 mg Aspirin (Aspirin) 325 mg PO DAILY@0800 [facility] Atorvastatin Calcium (Lipitor) 80 mg PO QHS [facility] Bisacodyl (Dulcolax) 5 mg PO DAILY PRN PRN PRN Reason: Constipation Ergocalciferol (Vitamin D) 50,000 unit PO QWEEK [facility] Escitalopram Oxalate (Lexapro) 5 mg PO DAILY [facility] Last Admin: 12/19/17 08:15 Dose: 5 mg Gabapentin (Neurontin) 300 mg PO TIDCM [facility] Last Admin: 12/19/17 08:15 Dose: 300 mg Sodium Chloride () 1,000 mls @ 150 mls/hr IV .Q6H40M [facility] Last Admin: 12/19/17 08:32 Dose: 150 mls/hr Isosorbide Mononitrate (Imdur) 30 mg PO DAILY [facility] Last Admin: 12/19/17 08:18 Dose: 30 mg Magnesium Hydroxide (Milk Of Magnesia) 30 ml PO DAILY PRN PRN Reason: Constipation Multivit/Ca Carb/B Cmplx/FA/Prenat (Nephrocaps, Renaphro) 1 capsule PO DAILY [facility] Last Admin: 12/19/17 08:15 Dose: 1 capsule Nicotine (Nicoderm Cq (Pbkc)) 14 mg TRANSDERM. DAILY [facility] Nitroglycerin (Nitrostat) 0.4 mg SUBLINGUAL Q5M PRN PRN Reason: CHEST PAIN Sodium Chloride () 5 - 30 ml IV UD PRN PRN Reason: SALINE FLUSH Ticagrelor (Brilinta) 90 mg PO BID [facility] Last Admin: 12/19/17 08:16 Dose: 90 mg Trimethoprim (Trimpex) 100 mg PO QODAY [facility] Medical Necessity - Tobacco Use Smoking Status: Current every day smoker Assessment/Plan All Active Problems (Last Reviewed 12/19/17 @ 07:33 by Manolo Thao MD) Meodv-cc-vlqxcxy kidney injury (Acute) Chest pain, unspecified (Acute) Syncope and collapse (Acute) Atypical chest pain (Acute) 1. CAD s/p HECTOR <12 months ago/Chest pain/HTN - Given the nature of his chest pain and his family history will perform cath today to evaluate stent - Will hydrate prior d/t CKD 3 - Initial troponin and f/u troponin was normal - EKG this am was normal no sign of ischemia but he continues to have chest pain - C/w ASA and brillinta - C/w metoprolol and imdur - Stay on lipitor 80 mg 2. CKD 3 with SOURAV - Will hydrate with NS@150 prior and after the cardiac cath - C/w allopurinol for his CKD 3. Vitamin D deficiency - Previous level 43 - C/w home medications 4. Lumbar stenosis - On neurontin and norco at home - Will monitor for sedation given his renal disease and the neurontin DVT: None Diet: Cardiac Code: FULL Dispo: Depending on cath may DC today or tomorrow Code Visit OBSV E&M: 08623 Subsequent observation care L3
--- NOTE | 2017-12-19 09:31 | CASEMGMT ---
According to [facility] website, the following are in-network tertiary facilities: [facility], [place], [facility], [facility], [facility], and . Patsy FOSTER CM
[2017-12-19] MEDS: Aspirin E.C. 81 MG Tablet PO (10:58)
[2017-12-19] MEDS: 0.9% NaCl Peripheral Flush Adult/Peds IV (10:59)
[2017-12-19] MEDS: Trimethoprim 100 MG Tablet PO (13:20)
--- NOTE | 2017-12-19 13:46 | PCM.DC ---
- Discharge Diagnoses Current Active Problems: Current Active and Chronic Problems (Last Reviewed 12/19/17 @ 07:33 by Manolo Thao MD) Ngjss-rz-xdetblk kidney injury (Acute) Neurogenic bladder (Chronic) Chest pain, unspecified (Acute) Hx of coronary artery disease (Chronic) Chronic kidney disease, stage 3 (Chronic) You will use the following diet at home:: Cardiac Your food should be the consistency of: Regular Your liquids should be the consistency of: Regular/Thin Discharge Activity: No Restrictions Call your doctor if your incision/area has: Sudden Increased Bleeding, Increased Pain/ Swelling, Increased Redness Call your doctor if you observe: Fever of 101 or Higher, Shortness of breath, Dizziness, Chest pain Allergies/Adverse Reactions: Allergies sulfamethoxazole [From Bactrim] Allergy (Mild, Verified 12/19/17 02:51) Rash trimethoprim [From Bactrim] Allergy (Mild, Verified 12/19/17 02:51) Rash bupropion [From Wellbutrin] Adverse Reaction (Verified 12/19/17 02:51) Elevated BP Medications to take at Discharge Ergocalciferol [Vitamin D] 50,000 unit PO QWEEK 04/21/15 Escitalopram Oxalate [Lexapro] 5 mg PO DAILY 04/21/15 Fish Oil/Dha/Epa [Fish Oil 1,200 mg Fish Oil] 1 ea PO DAILY 04/21/15 Allopurinol [Zyloprim] 100 mg PO DAILY 07/25/15 Hydrocodone Bitart/Apap 5-325 [[place] 5/325] 1 tab PO Q6H PRN PRN 07/25/15 Trimethoprim 1 tab PO QODAY 04/27/16 Atorvastatin Calcium [Lipitor] 80 mg PO QHS #30 tab 10/01/16 Ticagrelor [Brilinta] 90 mg PO BID #60 tab 10/01/16 Isosorbide Mononitrate [Isosorbide Mononitrate ER] 30 mg PO DAILY 04/07/17 gabapentin 600 mg tablet 300 mg PO TID 05/10/17 vitamin B complex and vitamin C no.20-folic acid 1 mg capsule 1 cap PO QDAY 05/10/17 Aspirin E.C. [Ecotrin] 81 mg PO DAILY@0800 #30 tab 12/19/17 Metoprolol(XL)Succ [Toprol Xl (Beta Obdulia)] 25 mg PO DAILY #30 tab 12/19/17 The following prescriptions were given: Aspirin E.C. [Ecotrin] 81 mg PO DAILY@0800 #30 tab Metoprolol(XL)Succ [Toprol Xl (Beta Obdulia)] 25 mg PO DAILY #30 tab Primary Care Physician: Brennan Ty MD [Primary Care Provider] - Please follow up with your Primary Care Physician in: 3-5 days Test Results: Test results from this visit will be discussed in further detail at your follow-up appointment, if applicable.
--- NOTE | 2017-12-19 14:59 | PCM.DC.SUM ---
Discharge Date and Diagnosis - Problem List Patient Problems: Active and Suspected Problems (Last Reviewed 12/19/17 @ 07:33 by Manolo Thao MD) Ekqvx-sj-jpmwrir kidney injury (Acute) Chest pain, unspecified (Acute) Date of Admission: 12/19/17 Date of Discharge: 12/19/17 - Primary Discharge Diagnosis Active and Suspected Problems (Last Reviewed 12/19/17 @ 07:33 by Manolo Thao MD) Ekjpe-uf-fcrtafd kidney injury (Acute) Chest pain, unspecified (Acute) - Secondary Discharge Diagnosis Chronic Problems (Last Reviewed 12/19/17 @ 07:33 by Manolo Thao MD) Neurogenic bladder (Chronic) Hx of coronary artery disease (Chronic) Chronic kidney disease, stage 3 (Chronic) History of coronary artery stent placement (Chronic ~09/29/16) PCI-HECTOR-Mid Cx 09/29/16 Atherosclerosis of coronary artery of [place] heart without angina pectoris (Chronic) PCI-HECTOR-Mid Cx 09/29/16 Sleep-disordered breathing (Chronic) NSVT (nonsustained ventricular tachycardia) (Chronic) Smoking addiction (Chronic) Hypertension (Chronic) Hyperlipidemia (Chronic) Osteoarthritis (Chronic) Spinal stenosis of lumbar region (Chronic) Chronic radicular lumbar pain (Chronic) STEMI (ST elevation myocardial infarction) (Chronic) Sciatica (Chronic) Hospital Course and Treatment Imaging Results: None Consultants: Cardiology Operations: None Procedures: Cardiac catheterization - CONCLUSIONS Previously placed stent in the lcx patent, with moderate disease in LAD and severe diagonal disease. Above unchanged from previous. Summary of Care Provided: HPI:The patient is a 47 year old M with a significant history of hypertension, CAD status post stents, chronic kidney disease, neurogenic bladder, sciatica, herniated disc, spinal stenosis, arthritis of back, who presented with chest pain ?6 weeks. Patient stated that in the past 6 weeks his chest pain has been a transient lasting a few minutes however a day before his admission the chest pain persisted for about 1 hour. Associated with his symptoms is diaphoresis, nausea and lightheadedness. He described a transient episode of left-sided headache associated with his chest pain. As aforementioned patient had a coronary stent placed in September 2016 and reportedly had unremarkable stress test after his stents were placed. Dr. Odonnell,cardiology was called from the ED; and he recommended the patient be kept inpatient for report specialist to see in a.m. Hospital Course: 1. CAD s/p HECTOR 12 months ago/Chest Pain/HTN - On admission there was concern for re-stenosis of his previous stent given that it has not been quit a year yet and that he was having similar albeit less intense pain. He was prehydrated with IVF @150 cc/hr prior to the cardiac cath which he tolerated well and was negative. He was continued on ASA and brillinta, though his aspirin dose was decreased due to concern for increased bleeding risk with both ASA and brillinta without a clear benefit to using the higher dose. EKG remained negative and the troponins x3 were normal. He was discharged on metoprolol, imdur, lipitor with cardiology follow-up in a few weeks. 2. CKD3 with SOURAV - His SOURAV is likely pre-renal, and we continued with both pre and post-cath hydration. He will need a follow-up BMP next week for evaluation by his PCP. 3. His other diagnoses were evaluated and his home medications were continued where appropriate. Discharge Activity: No Restrictions Call your doctor if your incision/area has: Sudden Increased Bleeding, Increased Pain/ Swelling, Increased Redness Call your doctor if you observe: Fever of 101 or Higher, Shortness of breath, Dizziness, Chest pain Home Medications: Medications to take at Discharge Ergocalciferol [Vitamin D] 50,000 unit PO QWEEK 04/21/15 Escitalopram Oxalate [Lexapro] 5 mg PO DAILY 04/21/15 Fish Oil/Dha/Epa [Fish Oil 1,200 mg Fish Oil] 1 ea PO DAILY 04/21/15 Allopurinol [Zyloprim] 100 mg PO DAILY 07/25/15 Hydrocodone Bitart/Apap 5-325 [[place] 5/325] 1 tab PO Q6H PRN PRN 07/25/15 Trimethoprim 1 tab PO QODAY 04/27/16 Atorvastatin Calcium [Lipitor] 80 mg PO QHS #30 tab 10/01/16 Ticagrelor [Brilinta] 90 mg PO BID #60 tab 10/01/16 Isosorbide Mononitrate [Isosorbide Mononitrate ER] 30 mg PO DAILY 04/07/17 gabapentin 600 mg tablet 300 mg PO TID 05/10/17 vitamin B complex and vitamin C no.20-folic acid 1 mg capsule 1 cap PO QDAY 05/10/17 Aspirin E.C. [Ecotrin] 81 mg PO DAILY@0800 #30 tab 12/19/17 Metoprolol(XL)Succ [Toprol Xl (Beta Obdulia)] 25 mg PO DAILY #30 tab 12/19/17 Following Prescrptions Were Given to Patient: Aspirin E.C. [Ecotrin] 81 mg PO DAILY@0800 #30 tab Metoprolol(XL)Succ [Toprol Xl (Beta Obdulia)] 25 mg PO DAILY #30 tab Primary Care Physician: Brennan Ty MD [Primary Care Provider] - Please follow up with your Primary Care Physician in: 3-5 days Disposition: Home Minutes spent on discharge:: 37 Patient Condition:: Good Medical Necessity - Tobacco Use Smoking Status: Current every day smoker Meaningful Use Info Meaningful Use Diagnoses (Choose all that apply): None applicable Code Visit Inpatient E&M: 12315 Disch Hosp
[2017-12-19] MEDS: Metoprolol(XL)Succ 25 MG Tablet PO (16:39)
== END 2017-12-19 13:47 | disposition home or self-care (01) ==
LOC: ED 05:24 → PCU 05:31
PROVIDERS: Admitting Provider Hospitalist; Emergency Provider Emergency Medicine; Family Provider Family Medicine; PCP Family Medicine; Visit Provider Family Medicine
DX: R07.89 Other chest pain (principal); I25.2 Old myocardial infarction; I12.9 Hypertensive chronic kidney disease with stage 1 through stage 4 chronic kidney disease, or unspecified chronic kidney disease; N18.3 Chronic kidney disease, stage 3 (moderate); N17.9 Acute kidney failure, unspecified; I25.10 Atherosclerotic heart disease of native coronary artery without angina pectoris; M19.90 Unspecified osteoarthritis, unspecified site; M48.061 Spinal stenosis, lumbar region without neurogenic claudication; Z79.899 Other long term (current) drug therapy; Z79.82 Long term (current) use of aspirin; I47.2 Ventricular tachycardia; G47.33 Obstructive sleep apnea (adult) (pediatric); N31.9 Neuromuscular dysfunction of bladder, unspecified; E78.5 Hyperlipidemia, unspecified; E55.9 Vitamin D deficiency, unspecified; M10.9 Gout, unspecified; F41.9 Anxiety disorder, unspecified; F32.9 Major depressive disorder, single episode, unspecified; R06.09 Other forms of dyspnea; F17.210 Nicotine dependence, cigarettes, uncomplicated
CPT/HCPCS: 36415; 71045; 80048; 83880; 84484; 85025; 93005; 93454; 96360; 96361; 99152; 99153; 99218; 99284; 99406; J7030; Q9967; A4216; C1769; C1894; G0378

== ENCOUNTER → 2018-01-22 10:28 | Outpatient (CLI) | payer MEDICARE, SELFPAY ==
[2016-10-01 10:17] VITALS: BMI 27.0
== END ==
PROVIDERS: Family Provider Family Medicine; PCP Family Medicine; Visit Provider Family Medicine
DX: Z00.00 Encounter for general adult medical examination without abnormal findings (principal)
CPT/HCPCS: 36415

== ENCOUNTER 2018-02-25 12:18 | Emergency (ER) | payer MEDICARE, SELFPAY ==
[2016-10-01 10:17] VITALS: BMI 27.0
[2018-02-25 12:18] VITALS: BP 154/100; PULSE 79; RESP 17; TEMP 36.3; O2SAT 96; BMI 28.6
--- NOTE | 2018-02-25 12:41 | CT_ITS ---
STUDY: CT ABDOMEN AND PELVIS WITHOUT CONTRAST REASON FOR EXAM: Male, 47 years old. Lower abdominal pain RADIATION DOSAGE (If Supplied By Facility): CTDIvol = ( 13.23 ) mGy, DLP = ( 910.87 ) mGycm TECHNIQUE: Transaxial images were obtained from the dome of the diaphragm to the symphysis pubis without oral contrast, and without intravenous contrast. Sagittal and coronal images were reconstructed. Individualized dose optimization techniques were used for this CT. COMPARISON: 08/22/17 FINDINGS: The visualized lung bases are unremarkable. The visualized portions of the heart are within normal limits. There is decreased attenuation of the liver consistent with steatosis. Normal gallbladder and extrahepatic biliary system. Normal spleen. Normal pancreas. Normal bilateral adrenal glands. The calyces are mildly dilated as are the ureters. They are conjoined distally into an ileal conduit. Normal visualized stomach. Multiple nondistended fluid-filled small bowel loops are noted consistent with ileus. Retained stool noted in the colon. There is non-visualization of the appendix. Normal abdominal aorta. Normal inferior vena cava. Normal retroperitoneum. Bladder has been previously removed, there is an ileal conduit noted in the pelvis. There are bilateral fat-containing inguinal hernias. Normal osseous structures. CT/Abdomen/Pelvis without Cont IMPRESSION: Patient is undergone previous cystectomy with ileal conduit. Stable caliectasis and hydroureters Fatty infiltration of liver, no discrete lesion No free intraperitoneal fluid, air, or suspicious adenopathy Retained stool noted in the colon Electronically Signed: Sae Ba MD at 13:42 EDT , Service support ,
[2018-02-25] MEDS: 0.9% Normal Saline 1,000 ML 1000 ML IV (13:02)
[2018-02-25] MEDS: Morphine 4 MG/ML Syringe IV (13:02)
[2018-02-25 13:18] LABS: Absolute Lymphocyte Count 1.65 X10^3/ul (0.83-4.51); Absolute Neutrophil Count 3.4 X10^3/uL (2.0-7.7); Basophil# 0.05 X10^3/uL; Basophil% 0.9 % (0-1); Eosinophil# 0.23 X10^3/uL; Hematocrit 47.5 % (40-54); Hemoglobin 15.3 g/dl (13.0-16.5); Lymphocyte # 1.65 X10^3/ul (4.0); Lymphocyte % 28.5 % (19-41); Mean Corp Hgb Conc 32.2 g/gl (32-36); Mean Corpuscular Hgb 29.2 pg (27.0-32.0); Mean Corpuscular Volume 90.6 fL (80-94); Mean Platelet Vol. 9.5 fl (6.2-12.0); Monocyte# 0.39 X10^3/uL; Monocyte% 6.7 % (0-10); Neutrophil # 3.44 X10^3/uL (2.7-7.7); Neutrophil % 59.6 % (47-70); Platelet Count 248 K/mm3 (150-450); RBC Distribution Width CV 13.6 % (11.6-14.6); RBC Distribution Width SD 45.3 fl (35.1-43.9); Red Blood Count 5.24 M/mm3 (4.6-6.2); White Blood Count 5.8 K/mm3 (4.4-11.0)
[2018-02-25 13:19] LABS: Mucous, Urine 0 SEEN /hpf (<or=2+); Squamous Epithelial Cells - UA 0 SEEN /hpf (0-5)
[2018-02-25 13:21] LABS: POSITIVE COUNT NO; POSITIVE DIFFERENTIAL NO; POSITIVE MORPHOLOGY NO
[2018-02-25 13:24] LABS: Color, Urine Yellow (Yellow); Glucose, Dipstick Normal (Normal); Ketone-Dipstick Negative (Negative); Leukocyte Esterase-Dipstick 25 /ul (Negative); Nitrite-Dipstick Negative (Negative); Occult Blood-Urine 10 /ul (Negative); Protein-Dipstick 30 mg/dl (Negative); Urine Bilirubin Dipstick Negative (Negative); Urine Clarity Clear (Clear); Urine Urobilinogen Normal (Normal)
[2018-02-25 13:29] LABS: Bacteria 1+ /hpf (None Seen); Red Blood Cells-Urine 0-5 SEEN /hpf (0-5); White Blood Cells 0-5 SEEN /hpf (0-5)
[2018-02-25 13:32] LABS: Anion Gap 6 (5-15); BUN 12 mg/dL (7-18); BUN/Creat Ratio 6.9 RATIO (10-20); Calcium,Total 8.9 mg/dL (8.5-10.1); Chloride 111 mmol/L (98-107); Creatinine, Serum 1.75 mg/dL (0.70-1.30); EST Glomerular Filtration Rate 44 mL/min (>60); Est Glom Filt Rate - Afr Amer 53 mL/min (>60); Estimated Creatinine Clearance 57.71 ml/min; Glucose 111 mg/dL (74-106); Potassium 4.3 mmol/L (3.5-5.1); Sodium Level 144 mmol/L (136-145)
--- NOTE | 2018-02-25 14:50 | ED.VISSUMM ---
- ER Visit Summary Date of Service: 02/25/18 Chief Complaint: Abdominal pain History of Present Illness: The patient is a [address] Brennan Severino. He reports that he has incisional hernias in the lower abdomen that have caused problems in the past. He is seen Dr. Jimmy Aggarwal for these. Reports that he has sudden worsening pain today. Describes it as a sharp pain 7-10 hours and 6 out of 10 currently. Is worsened by nothing relieved by nothing. Denies any nausea, vomiting, or diarrhea. His last bowel was yesterday. Has had no melena or hematochezia. Patient does report he has a history of a neurogenic bladder and because of this he self caths. He reports that his urine was red/cloudy approximately 2 days ago, but has not been since then. He denies any fever or chills. Physical Examination: Vitals: Stable. Afebrile. General: Well-nourished and well-developed. Head: Normocephalic atraumatic. Neck: Supple, no lymphadenopathy. No JVD. Nontender. Cardiovascular: Regular rate and rhythm. No murmurs. Respiratory: No respiratory distress. Clear to auscultation bilaterally. Abdominal: Multiple scars over his abdomen. Mild tenderness to palpation over the right side of the inferior scar. Soft, nondistended, normal bowel sounds. No guarding, rebound, or peritoneal signs. Back: Nontender. Extremities: Nontender, no edema. Skin: Normal color, no rash. Neurologic: Alert and oriented ?3. Cranial nerves II through XII are intact. Normal strength and sensation. Psych: Normal affect. Test Results: CBC is normal. Chem-7 is more for chloride of 111 and glucose of 111. His creatinine is 1.75. His creatinine is range between 1.61-2.15 since 2017. UA is negative. This was sent for culture. Clinical Impression(s) from Imaging Studies Abdomen/Pelvis CT 02/25/18 12:41 IMPRESSION: Patient is undergone previous cystectomy with ileal conduit. Stable caliectasis and hydroureters Fatty infiltration of liver, no discrete lesion No free intraperitoneal fluid, air, or suspicious adenopathy Retained stool noted in the colon Electronically Signed: Sae Ba MD at 13:42 EDT , Service support , Emergency Department Course and Treatment: Patient was given a dose of morphine IV and is resting comfortably. Treatment Plan: Patient will be discharged with Linzess which she reports is helped with his constipation in the past. I did discuss them that this may be due to his hernia, but that outpatient evaluation is reasonable. He is instructed with Dr. Jimmy Aggarwal for further evaluation. He is also instructed follow-up Dr. Brennan Severino. Return to the emergency department for any worsening symptoms. Disposition: To home in improved and stable condition. Impression: 1. Abdominal pain, uncertain cause. 2. Neurogenic bladder. This note was generated with [employer] dictation software. It may contain incorrect words, spelling, and punctuation that were not noted in review of the chart prior to signing ED Disposition - Plan for ED Patient: Disposition: Home or Assisted Living Chief Complaint: Abd Pain Instructions: ED Abdominal Pain Unkn Cause Male Prescriptions: Docusate Sodium [Colace] 100 mg PO DAILY #20 capsule Linaclotide [Linzess] 290 mcg PO DAILY PRN #10 capsule PRN Reason: Constipation Referrals: Jimmy Aggarwal MD [STAFF PHYSICIAN] - 3-5 Days Brennan Ty MD [Primary Care Provider] - 1-2 Days if not improving
[2018-02-25 15:28] VITALS: BP 135/77; PULSE 62; RESP 15; O2SAT 97
== END 2018-02-25 15:30 | disposition home or self-care (01) ==
PROVIDERS: Emergency Provider Emergency Medicine; Family Provider Family Medicine; PCP Family Medicine
DX: R10.9 Unspecified abdominal pain (principal); N31.9 Neuromuscular dysfunction of bladder, unspecified; I25.10 Atherosclerotic heart disease of native coronary artery without angina pectoris; I10 Essential (primary) hypertension; I50.9 Heart failure, unspecified; F17.200 Nicotine dependence, unspecified, uncomplicated; Z95.5 Presence of coronary angioplasty implant and graft
CPT/HCPCS: 74176; 80048; 81001; 85025; 87077; 87086; 87088; 87186; 96361; 96374; 99283; J7030

== ENCOUNTER 2018-03-13 23:04 | Observation (INO) | payer MEDICARE, SELFPAY ==
[2016-10-01 10:17] VITALS: BMI 27.0
[2018-03-13 23:05] VITALS: BP 145/102; PULSE 73; RESP 14; TEMP 36.6; O2SAT 99; BMI 28.5
[2018-03-13 23:14] VITALS: PULSE 71; RESP 13; O2SAT 98
[2018-03-13 23:17] VITALS: BP 137/91; PULSE 71; RESP 13; O2SAT 98
--- NOTE | 2018-03-13 23:25 | EKG12_ITS ---
Test Reason : CP Blood Pressure : / mmHG Vent. Rate : 066 BPM Atrial Rate : 066 BPM P-R Int : 150 ms QRS Dur : 084 ms QT Int : 364 ms P-R-T Axes : 029 067 069 degrees QTc Int : 381 ms Normal sinus rhythm Normal ECG Confirmed by MOISES ROBERTS, MARGIE ([id number]), material expeditor BANDAR CARSON ([id number]) on 03/17/2018 3:48:59 PM Referred By: DR MENDOZA Confirmed By:MARGIE DE LEON MD
[2018-03-13 23:37] LABS: Absolute Neutrophil Count 4.3 X10^3/uL (2.0-7.7); Basophil# 0.02 X10^3/uL; Basophil% 0.3 % (0-1); Eosinophils% 2.8 % (0-5); Hematocrit 44.4 % (40-54); Hemoglobin 14.3 g/dl (13.0-16.5); Lymphocyte % 26.7 % (19-41); Mean Corp Hgb Conc 32.2 g/gl (32-36); Mean Corpuscular Hgb 29.4 pg (27.0-32.0); Mean Corpuscular Volume 91.2 fL (80-94); Mean Platelet Vol. 9.8 fl (6.2-12.0); Monocyte# 0.67 X10^3/uL; Monocyte% 9.4 % (0-10); Neutrophil # 4.32 X10^3/uL (2.7-7.7); Neutrophil % 60.7 % (47-70); Platelet Count 204 K/mm3 (150-450); RBC Distribution Width CV 13.8 % (11.6-14.6); RBC Distribution Width SD 45.3 fl (35.1-43.9); Red Blood Count 4.87 M/mm3 (4.6-6.2); White Blood Count 7.1 K/mm3 (4.4-11.0)
[2018-03-13 23:38] LABS: POSITIVE COUNT NO; POSITIVE DIFFERENTIAL NO; POSITIVE MORPHOLOGY NO
--- NOTE | 2018-03-13 23:38 | RAD_ITS ---
STUDY: X-RAY CHEST REASON FOR EXAM: Male, 47 years old. Chest pain TECHNIQUE: Frontal and lateral views of the chest. COMPARISON: December 19, 2017 FINDINGS: Similar appearance to the lungs compared to prior study including the right lung base. No new focal pulmonary opacity. There is no demonstrated pleural abnormality. Normal size heart. Normal mediastinum and jayde. Normal visualized pulmonary arteries. Normal visualized aortic arch and descending thoracic aorta. Normal visualized thoracic spine. Normal visualized ribs, clavicles, and shoulders. There is no demonstrated abnormality of the visualized soft tissue structures of the upper abdomen. RAD/Chest PA and Lateral IMPRESSION: Compared to prior examination no significant interval change. There is slight asymmetry to the lungs within the right base. This could represent asymmetric overlying soft tissue confluence of shadows. An infectious inflammatory process is thought less likely however not excluded. Electronically Signed: Atif Scruggs, at 0:33 EST Tel , Service support ,
[2018-03-13 23:55] VITALS: O2SAT 98
[2018-03-13 23:56] VITALS: BP 133/89; PULSE 70
[2018-03-14] VITALS (12 sets, daily range): BP systolic 127–152; BP diastolic 81–93; PULSE 59–100; RESP 15–18; TEMP 36.7; O2SAT 96–98; BMI 28.3; BMI 28.6
[2018-03-14 00:04] LABS: Anion Gap 6 (5-15); BUN 15 mg/dL (7-18); BUN/Creat Ratio 7.1 RATIO (10-20); Calcium,Total 8.8 mg/dL (8.5-10.1); Chloride 108 mmol/L (98-107); Creatinine, Serum 2.11 mg/dL (0.70-1.30); EST Glomerular Filtration Rate 36 mL/min (>60); Est Glom Filt Rate - Afr Amer 43 mL/min (>60); Estimated Creatinine Clearance 47.86 ml/min; Glucose 82 mg/dL (74-106); Potassium 3.7 mmol/L (3.5-5.1); Sodium Level 140 mmol/L (136-145)
[2018-03-14 00:06] LABS: Prothrombin Time (Protime)PT. 12.8 SECONDS (11.7-14.9)
[2018-03-14 00:28] LABS: D-Dimer Quantitative (DVT/PE) < 0.27 FEU/ug/m (0.27-0.49)
--- NOTE | 2018-03-14 00:48 | ED.VISSUMM ---
- ER Visit Summary Date of Service: 03/14/18 Chief Complaint: Chest pain History of Present Illness: The patient is a 47 M who presents with chest pain. He does have a history of coronary artery disease with one prior stent. 20-30 minutes ago during a physical exertional activity he developed severe left-sided chest pain. This was 8 out of 10. Currently is a 6 out of 10. He describes it as sharp and stabbing. He was diaphoretic although this has improved. He also had shortness of breath. He took aspirin prior to arrival. He states that this is similar in character to his previous CA and angina but less severe. He denies fevers nausea vomiting. He denies recent illness. Physical Examination: Initial blood pressure 145/102 vitals otherwise normal Moist mucous membranes Heart regular rate and rhythm Lungs are clear Abdomen soft nontender Extremities nontender without edema 2+ symmetric radial pulses Skin warm and dry Test Results: EKG shows sinus rhythm at a rate of 66. CBC normal. BMP notable for BUN 15, creatinine 2.11. INR normal. D-dimer negative. Troponin negative. Chest x-ray on my review shows no acute process. Emergency Department Course and Treatment: Patient was given sublingual nitroglycerin here. On reevaluation he is pain-free. He Mata took full dose aspirin just prior to presentation. Given his known history of coronary disease improvement with nitroglycerin he will need admitted for serial enzymes and cardiology consultation. Treatment Plan: [] Disposition: Admit Impression: Chest pain This note was generated with [employer] dictation software. It may contain incorrect words, spelling, and punctuation that were not noted in review of the chart prior to signing ED Disposition - Plan for ED Patient: Chief Complaint: Chest Pain Referrals: Brennan Ty MD [Primary Care Provider] -
--- NOTE | 2018-03-14 00:52 | ED.DCSUM_ITS ---
- ER Visit Summary Date of Service: 03/14/18 Chief Complaint: Chest pain History of Present Illness: The patient is a 47 M who presents with chest pain. He does have a history of coronary artery disease with one prior stent. 20-30 minutes ago during a physical exertional activity he developed severe left-sided chest pain. This was 8 out of 10. Currently is a 6 out of 10. He describes it as sharp and stabbing. He was diaphoretic although this has improved. He also had shortness of breath. He took aspirin prior to arrival. He states that this is similar in character to his previous [place] and angina but less severe. He denies fevers nausea vomiting. He denies recent illness. Physical Examination: Initial blood pressure 145/102 vitals otherwise normal Moist mucous membranes Heart regular rate and rhythm Lungs are clear Abdomen soft nontender Extremities nontender without edema 2+ symmetric radial pulses Skin warm and dry Test Results: EKG shows sinus rhythm at a rate of 66. CBC normal. BMP notable for BUN 15, creatinine 2.11. INR normal. D-dimer negative. Troponin negative. Chest x-ray on my review shows no acute process. Emergency Department Course and Treatment: Patient was given sublingual nitroglycerin here. On reevaluation he is pain-free. He Mata took full dose aspirin just prior to presentation. Given his known history of coronary disease improvement with nitroglycerin he will need admitted for serial enzymes and cardiology consultation. Treatment Plan: [] Disposition: Admit Impression: Chest pain This note was generated with [employer] dictation software. It may contain incorrect words, spelling, and punctuation that were not noted in review of the chart prior to signing ED Disposition - Plan for ED Patient: Chief Complaint: Chest Pain Referrals: Brennan Ty MD [Primary Care Provider] -
--- NOTE | 2018-03-14 01:50 | HP.PCM_ITS ---
Problem List (1) [id number] kidney injury Status: Acute (2) Neurogenic bladder Status: Chronic (3) Chest pain, unspecified Status: Acute (4) Hx of coronary artery disease Status: Chronic (5) Syncope and collapse Status: Resolved (6) Chronic kidney disease, stage 3 Status: Chronic (7) History of coronary artery stent placement Status: Chronic Comment: PCI-HECTOR-Mid Cx 09/29/16 (8) Atherosclerosis of coronary artery of [place] heart without angina pectoris Status: Chronic Comment: PCI-HECTOR-Mid Cx 09/29/16 (9) Sleep-disordered breathing Status: Chronic (10) NSVT (nonsustained ventricular tachycardia) Status: Chronic (11) Smoking addiction Status: Chronic (12) Hypertension Status: Chronic (13) Hyperlipidemia Status: Chronic (14) Osteoarthritis Status: Chronic (15) Spinal stenosis of lumbar region Status: Chronic (16) Chronic radicular lumbar pain Status: Chronic (17) STEMI (ST elevation myocardial infarction) Status: Chronic (18) Sciatica Status: Chronic History of Present Illness Date of Admission: 03/14/18 Chief Complaint: Chest pain today The patient is a 47 year old M with history of non-STEMI status post stent in OM1, patent as per last cath in December 2017, came to ER with chest pain during intercourse last night. Patient describes chest pain as left-sided which moves around the chest, sharp without radiation. It lasted for more than half an hour and got relief after he took aspirin. He also had mild shortness of breath, lightheadedness and diaphoresis but he said he was exerting himself. In ED, EKG shows normal sinus rhythm with no significant change from the previous EKG of December 19, 2017. Previous heart cath in December 2017 shows mid LAD 50%, distal radial less than 30%, D1 proximal long 80% stenosis in previous OM1 proximal with patent stent. EF by LV gram 60%. Past Medical History Past Medical History (Chronic Problems): Chronic Problems (Last Reviewed 12/19/17 @ 07:33 by Manolo Thao MD) Neurogenic bladder (Chronic) Hx of coronary artery disease (Chronic) Chronic kidney disease, stage 3 (Chronic) History of coronary artery stent placement (Chronic ~09/29/16) PCI-HECTOR-Mid Cx 09/29/16 Atherosclerosis of coronary artery of [place] heart without angina pectoris (Chronic) PCI-HECTOR-Mid Cx 09/29/16 Sleep-disordered breathing (Chronic) NSVT (nonsustained ventricular tachycardia) (Chronic) Smoking addiction (Chronic) Hypertension (Chronic) Hyperlipidemia (Chronic) Osteoarthritis (Chronic) Spinal stenosis of lumbar region (Chronic) Chronic radicular lumbar pain (Chronic) STEMI (ST elevation myocardial infarction) (Chronic) Sciatica (Chronic) Medical History: Medical History (Last Reviewed 12/19/17 @ 07:33 by Manolo Thao MD) Neurogenic bladder (Chronic) N31.9 Chronic kidney disease, stage 3 (Chronic) N18.3 Atherosclerosis of coronary artery of [place] heart without angina pectoris (Chronic) I25.10 PCI-HECTOR-Mid Cx 09/29/16 Sleep-disordered breathing (Chronic) G47.30 NSVT (nonsustained ventricular tachycardia) (Chronic) I47.2 Smoking addiction (Chronic) F17.200 Hypertension (Chronic) I10 Hyperlipidemia (Chronic) E78.5 Osteoarthritis (Chronic) M19.90 Spinal stenosis of lumbar region (Chronic) M48.06 Chronic radicular lumbar pain (Chronic) M54.16, G89.29 STEMI (ST elevation myocardial infarction) (Chronic) Sciatica (Chronic) M54.30 Neurogenic bladder N31.9 Allergies sulfamethoxazole [From Bactrim] Allergy (Mild, Verified 03/13/18 23:09) Rash trimethoprim [From Bactrim] Allergy (Mild, Verified 03/13/18 23:09) Rash bupropion [From Wellbutrin] Adverse Reaction (Verified 03/13/18 23:09) Elevated BP Home Medications: Ambulatory Orders Medication Instructions Recorded Ergocalciferol [Vitamin D] 50,000 unit PO QWEEK 04/21/15 Escitalopram Oxalate [Lexapro] 5 mg PO DAILY 04/21/15 Fish Oil/Dha/Epa [Fish Oil 1,200 1 ea PO DAILY 04/21/15 mg Fish Oil] Allopurinol [Zyloprim] 100 mg PO DAILY 07/25/15 Hydrocodone Bitart/Apap 5-325 1 tab PO Q6H PRN PRN 07/25/15 [[place] 5/325] Trimethoprim 1 tab PO QODAY 04/27/16 Atorvastatin Calcium [Lipitor] 80 mg PO QHS #30 tab 10/01/16 gabapentin 600 mg tablet 900 mg PO DAILY 05/10/17 vitamin B complex and vitamin C 1 cap PO QDAY 05/10/17 no.20-folic acid 1 mg capsule Aspirin E.C. [Ecotrin] 81 mg PO DAILY@0800 #30 tab 12/19/17 clopidogrel 75 mg tablet 75 mg PO DAILY #90 tab 12/29/17 metoprolol succinate ER 25 mg 25 mg PO DAILY #90 tab 12/29/17 tablet,extended release 24 hr isosorbide mononitrate ER 30 mg 30 mg PO DAILY #90 tab 12/30/17 tablet,extended release 24 hr Linaclotide [Linzess] 290 mcg PO DAILY PRN #10 capsule 02/25/18 Docusate Sodium [Colace] 100 mg PO DAILY PRN 03/14/18 Surgical History: Surgical History (Last Reviewed 12/19/17 @ 07:33 by Manolo Thao MD) History of coronary artery stent placement (Chronic) Onset Date: ~09/29/16 Z95.5 PCI-HECTOR-Mid Cx 09/29/16 History of renal stent Z98.890 ileoconduit placement percutaneous nephrostomy urethral stricture surgery urinary tract diverson Surgical History: - - Multiple urological surgeries including diversion of ureter, surgery for urethral stricture, renal stent placement, and ileoconduit placement Smoking Status: Current every day smoker - *Family History Maternal Family History: Family History (Last Reviewed 12/19/17 @ 07:29 by Manolo Thao MD) Grandfather CAD (coronary artery disease) History Items: No pertinent history Paternal Family History: Family History (Last Reviewed 12/19/17 @ 07:29 by Manolo Thao MD) Grandfather CAD (coronary artery disease) History Items: Hypertension Review of Systems Constitutional: Denies: Chills, Fever, Weight Change HEENT: Denies: Head Aches, Sinus Congestion, Sinus Drainage Cardiovascular: Reports: Chest Pain. Denies: Palpitations Respiratory: Reports: Shortness of Breath. Denies: Cough, Shortness of breath at rest, Shortness of breath upon exertion, Sputum production Gastrointestinal: Denies: Abdominal Pain, Nausea, Vomiting Genitourinary: Reports: Incontinence, - - Neurogenic bladder. Patient self catheterizes. Denies: Dysuria Musculoskeletal: Reports: Back Pain, Joint Pain, - - Sciatica pain. Denies: Joint Tenderness Skin: Denies: Rash, Wounds Neurological: Denies: Numbness, Tingling, Focal weakness Psychiatric: Denies: Anxiety, Depression, Homicidal Ideations, Suicidal Ideations Hematologic/ Lymphatic: Denies: Easy Bruising, Easy Bleeding VTE Information - Inpt Only VTE Present on Admission: No VTE Mechan Device Prophylaxis: SCD's VTE Pharm Prophylaxis ordered?: Yes - Physical Exam General: Alert, Oriented x3, Cooperative HEENT: Atraumatic, PERRLA, EOMI, Normocephalic Neck: Supple, No JVD, Negative Carotid Bruits Lungs: Clear to auscultation, Normal air movement, No rhonchi, No wheeze, No rales Cardiovascular: Regular rate, Regular Rhythm, Normal S1, Normal S2, No murmurs Abdomen: Bowel Sounds Present, Soft, Non Tender, - - Mid abdomen surgical scar present. neobladder construction. 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 Extremities: No edema, Capillary Refill Less than 3 Seconds Skin: No rashes, No breakdown Musculoskeletal: No Tenderness to Palpation of Joints or Extremities, Arthritic Changes Neurological: Cranial nerves II-XII grossly intact Psych/Mental Status: Normal Affect, Appropriate Vital Signs Temp Pulse Resp BP Pulse Ox 97.9 F 68 15 135/88 H 96 03/13/18 23:05 03/14/18 00:31 03/14/18 00:11 03/14/18 00:31 03/14/18 00:11 Oxygen Flow Rate (L/min) 2 Oxygen Delivery Method Nasal Cannula Weight: 216 lb 11.43 oz Body Mass Index (BMI) 28.5 Laboratory Tests Past 24 Hrs 03/13/18 03/13/18 03/13/18 23:08 23:08 23:08 WBC 7.1 RBC 4.87 Hgb 14.3 Hct 44.4 MCV 91.2 MCH 29.4 MCHC 32.2 RDW 13.8 RDW Differential 45.3 H Plt Count 204 MPV 9.8 Immature Gran % (Auto) 0.100 Neut % (Auto) 60.7 Lymph % (Auto) 26.7 [place] % (Auto) 9.4 Eos % (Auto) 2.8 Baso % (Auto) 0.3 Absolute Neuts (auto) 4.3 Absolute Lymphs (auto) 1.90 Total Counted Not Reportable PT 12.8 INR 1.0 D-Dimer Quant (PE/DVT) Sodium 140 Potassium 3.7 Chloride 108 H Carbon Dioxide 26.0 Anion Gap 6 BUN 15 Creatinine 2.11 H Estim Creat Clear Calc 47.86 Est GFR (MDRD) Af Amer 43 L Est GFR (MDRD) Non-Af 36 L BUN/Creatinine Ratio 7.1 L Glucose 82 Calcium 8.8 Troponin I < 0.015 03/13/18 23:23 WBC RBC Hgb Hct MCV MCH MCHC RDW RDW Differential Plt Count MPV Immature Gran % (Auto) Neut % (Auto) Lymph % (Auto) [place] % (Auto) Eos % (Auto) Baso % (Auto) Absolute Neuts (auto) Absolute Lymphs (auto) Total Counted PT INR D-Dimer Quant (PE/DVT) < 0.27 L Sodium Potassium Chloride Carbon Dioxide Anion Gap BUN Creatinine Estim Creat Clear Calc Est GFR (MDRD) Af Amer Est GFR (MDRD) Non-Af BUN/Creatinine Ratio Glucose Calcium Troponin I Assessment/Plan All Active Problems (Last Reviewed 12/19/17 @ 07:33 by Manolo Thao MD) Trbzw-yt-vsrflex kidney injury (Acute) Chest pain, unspecified (Acute) Syncope and collapse (Resolved) The patient is a 47 year old M with history of non-STEMI status post stent in OM1, patent as per last cath in December 2017, came to ER with chest pain during intercourse last night. Patient describes chest pain as left-sided which moves around the chest, sharp without radiation. It lasted for more than half an hour and got relief after he took aspirin. He also had mild shortness of breath, lightheadedness and diaphoresis but he said he was exerting himself. In ED, EKG shows normal sinus rhythm with no significant change from the previous EKG of December 19, 2017. Previous heart cath in December 2017 shows mid LAD 50%, distal radial less than 30%, D1 proximal long 80% stenosis in previous OM1 proximal with patent stent. EF by LV gram 60%. 1. Atypical chest pain probably angina secondary to exertion: Patient is being admitted on PCU. Serial cardiac enzymes. Repeat EKG ordered. If troponins are normal, treadmill nuclear stress test tomorrow a.m. Continue aspirin, Plavix, metoprolol, Isosorbide mononitrate and atorvastatin. The patient follows Dr. Suarez and can consult him if troponin enzymes are negative or if you develop further chest pain. 2. Coronary artery status post stenting of OM1: Continue cardiac medications as mentioned above. 3. Acute kidney injury on CKD stage III: IV fluid normal saline. Monitor intake and output. Repeat BMP tomorrow a.m. 4. History of recurrent UTI, neurogenic bladder on self catheterization 5. Other chronic comorbidities include history of a NSTEMI status post stent, hypertension, dyslipidemia, lumbar spinal stenosis, sciatica and history of staph bacteremia: Home medication reconciliation done. DVT prophylaxis: On heparin 5000 subcu units twice daily This note was generated with [employer] dictation software. Every effort was made to ensure accuracy, however computerized equal employment opportunity officer mistakes may persist. Code Visit OBSV E&M: 79916 Initial observation care L3
--- NOTE | 2018-03-14 04:00 | EKG12_ITS ---
Test Reason : AM EKG Blood Pressure : / mmHG Vent. Rate : 071 BPM Atrial Rate : 071 BPM P-R Int : 158 ms QRS Dur : 086 ms QT Int : 394 ms P-R-T Axes : 031 058 045 degrees QTc Int : 428 ms Normal sinus rhythm Normal ECG When compared with ECG of 14-MAR-2018 02:06, MANUAL COMPARISON REQUIRED, DATA IS UNCONFIRMED Confirmed by MOISES ROBERTS, MARGIE ([id number]), editor book BANDAR CARSON ([id number]) on 03/18/2018 11:34:40 AM Referred By: FARZAD Confirmed By:MARGIE DE LEON MD
[2018-03-14] MEDS: Clopidogrel Bisulfate 75 MG Tablet PO (05:25)
[2018-03-14] MEDS: Aspirin E.C. 81 MG Tablet PO (05:25)
[2018-03-14 06:07] LABS: Absolute Lymphocyte Count 2.25 X10^3/ul (0.83-4.51); Absolute Neutrophil Count 3.4 X10^3/uL (2.0-7.7); Basophil# 0.03 X10^3/uL; Basophil% 0.5 % (0-1); Eosinophil# 0.26 X10^3/uL; Eosinophils% 3.9 % (0-5); Hematocrit 44.8 % (40-54); Hemoglobin 14.7 g/dl (13.0-16.5); Lymphocyte # 2.25 X10^3/ul (4.0); Mean Corp Hgb Conc 32.8 g/gl (32-36); Mean Corpuscular Hgb 29.5 pg (27.0-32.0); Mean Corpuscular Volume 89.8 fL (80-94); Monocyte% 10.6 % (0-10); Neutrophil # 3.36 X10^3/uL (2.7-7.7); Neutrophil % 50.7 % (47-70); Platelet Count 207 K/mm3 (150-450); RBC Distribution Width CV 13.9 % (11.6-14.6); RBC Distribution Width SD 45.2 fl (35.1-43.9); Red Blood Count 4.99 M/mm3 (4.6-6.2); White Blood Count 6.6 K/mm3 (4.4-11.0)
[2018-03-14 06:08] LABS: International Normalized Ratio 0.9
[2018-03-14 06:09] LABS: Partial Thromboplast Time 27.4 Seconds (24.1-36.2)
[2018-03-14 06:16] LABS: POSITIVE COUNT NO; POSITIVE DIFFERENTIAL NO; POSITIVE MORPHOLOGY NO
[2018-03-14 06:47] LABS: Anion Gap 7 (5-15); BUN 17 mg/dL (7-18); BUN/Creat Ratio 9.3 RATIO (10-20); Calcium,Total 8.7 mg/dL (8.5-10.1); Chloride 108 mmol/L (98-107); Cholesterol 112 mg/dL (200); Creatinine, Serum 1.83 mg/dL (0.70-1.30); EST Glomerular Filtration Rate 42 mL/min (>60); Est Glom Filt Rate - Afr Amer 51 mL/min (>60); Estimated Creatinine Clearance 55.18 ml/min; Glucose 106 mg/dL (74-106); High Density Lipoprotein 24 mg/dL; Potassium 3.3 mmol/L (3.5-5.1); Sodium Level 142 mmol/L (136-145); Thyroid Stim Hormone (TSH) 0.32 uIU/mL (0.358-3.74); Triglycerides 326 mg/dL; Very Low Density Lipoprotein 65 mg/dL (5-40)
--- NOTE | 2018-03-14 12:11 | DS.PCM_ITS ---
<Halle Molina - Last Filed: 03/14/18 12:56> Discharge Date and Diagnosis Date of Admission: 03/14/18 Date of Discharge: 03/14/18 - Primary Discharge Diagnosis 1. Atypical chest pain, ACS ruled out 2. Acute kidney injury on chronic kidney disease stage III 3. Mild hypokalemia - Secondary Discharge Diagnosis Chronic Problems (Last Reviewed 12/19/17 @ 07:33 by Manolo Thao MD) Neurogenic bladder (Chronic) Hx of coronary artery disease (Chronic) Chronic kidney disease, stage 3 (Chronic) History of coronary artery stent placement (Chronic ~09/29/16) PCI-HECTOR-Mid Cx 09/29/16 Atherosclerosis of coronary artery of [place] heart without angina pectoris (Chronic) PCI-HECTOR-Mid Cx 09/29/16 Sleep-disordered breathing (Chronic) NSVT (nonsustained ventricular tachycardia) (Chronic) Smoking addiction (Chronic) Hypertension (Chronic) Hyperlipidemia (Chronic) Osteoarthritis (Chronic) Spinal stenosis of lumbar region (Chronic) Chronic radicular lumbar pain (Chronic) STEMI (ST elevation myocardial infarction) (Chronic) Sciatica (Chronic) Hospital Course and Treatment Imaging Results: Diagnostic Data Chest X-Ray 03/13/18 23:38 IMPRESSION: Compared to prior examination no significant interval change. There is slight asymmetry to the lungs within the right base. This could represent asymmetric overlying soft tissue confluence of shadows. An infectious inflammatory process is thought less likely however not excluded. Electronically Signed: Atif Beyford, at 0:33 EST Tel , Service support , Operations: None Procedures: Stress test Summary of Care Provided: Patient is a 47-year-old male admitted 03/14/18 due to chest pain. He has a past medical history of CAD with NSTEMI requiring PCI in September 2016, hypertension, hyperlipidemia, chronic back pain, tobacco dependence, chronic kidney disease stage III, history of nonsustained ventricular tachycardia, osteoarthritis, neurogenic bladder requiring self-catheterization, frequent UTIs, depression. 1. Atypical chest pain-Troponin negative ?3. Patient underwent stress test which was negative for ischemia. Cardiac catheterization December 2017 showed patent previous stent in LCx, moderate disease in LAD and severe diagonal disease. Patient follows with Dr. Suarez. Patient has upcoming follow-up appointment with Dr. Suarez 03/31/2018. Follow-up with primary care physician 1 week as well. 2. Acute kidney injury on chronic kidney disease stage III-improved with IV fluids. Patient follows with Dr. Lr. Continue outpatient follow up. 3. Mild hypokalemia-replaced per protocol. 4. CAD status post PCI-patient with NSTEMI September 2016 which required stenting with HECTOR to left circumflex. Catheterization also showed significant disease in the inferior branch of diagonal 1 and mid LAD. Echocardiogram September 2016 showed an EF of 60%. Continue aspirin, statin, plavix, metoprolol, isosorbide. 5. History of nonsustained ventricular tachycardia 6. Neurogenic bladder-continue home self catheterization regimen. Associated frequent UTIs. Patient on chronic preventative antibiotic therapy with trimethoprim. 7. Hypertension-stable, continue home regimen. 8. Hyperlipidemia-continue statin. 9. Tobacco dependence-encourage smoking cessation. 10. Chronic back pain secondary to lumbar canal stenosis/sciatica/osteoarthritis-continue home gabapentin regimen. 11. Depression-continue home Lexapro regimen. General: Alert, Oriented x3, Cooperative HEENT: Atraumatic, PERRLA, EOMI, Normocephalic Neck: Supple, No JVD, Negative Carotid Bruits Lungs: Clear to auscultation, Normal air movement Cardiovascular: Regular rate, Regular Rhythm, Normal S1, Normal S2, No murmurs Abdomen: Bowel Sounds Present, Soft, Non Tender, non-distended Extremities: No edema, Capillary Refill Less than 3 Seconds Skin: No rashes, No breakdown Musculoskeletal: No Tenderness to Palpation of Joints or Extremities, Arthritic Changes Neurological: Cranial nerves II-XII grossly intact Psych/Mental Status: Normal Affect, Appropriate Patient seen and examined prior to discharge. Physical assessment as noted above. Patient is stable for discharge with the follow up recommendations as noted above. This patient was seen by LOTTIE Alvarenga under the supervision of Dr. Tovar. - Physical Exam Vital Signs Temp Pulse Resp BP Pulse Ox 98.1 F 59 L 18 139/85 H 96 03/14/18 05:19 03/14/18 07:42 03/14/18 05:19 03/14/18 05:19 03/14/18 05:19 Oxygen Flow Rate (L/min) 2 Oxygen Delivery Method Room Air Weight: 214 lb 4.629 oz Body Mass Index (BMI) 28.3 Intake and Output for Last 24 Hours 03/12/18 03/13/18 03/14/18 23:59 23:59 23:59 Intake Total 0 / 0 Balance 0 / 0 Laboratory Tests Past 24 Hrs 03/13/18 03/13/18 03/13/18 23:08 23:08 23:08 WBC 7.1 RBC 4.87 Hgb 14.3 Hct 44.4 MCV 91.2 MCH 29.4 MCHC 32.2 RDW 13.8 RDW Differential 45.3 H Plt Count 204 MPV 9.8 Immature Gran % (Auto) 0.100 Neut % (Auto) 60.7 Lymph % (Auto) 26.7 [place] % (Auto) 9.4 Eos % (Auto) 2.8 Baso % (Auto) 0.3 Absolute Neuts (auto) 4.3 Absolute Lymphs (auto) 1.90 Total Counted Not Reportable PT 12.8 INR 1.0 APTT D-Dimer Quant (PE/DVT) Sodium 140 Potassium 3.7 Chloride 108 H Carbon Dioxide 26.0 Anion Gap 6 BUN 15 Creatinine 2.11 H Estim Creat Clear Calc 47.86 Est GFR (MDRD) Af Amer 43 L Est GFR (MDRD) Non-Af 36 L BUN/Creatinine Ratio 7.1 L Glucose 82 Calcium 8.8 Troponin I < 0.015 Triglycerides Cholesterol LDL Cholesterol VLDL Cholesterol HDL Cholesterol TSH 03/13/18 03/14/18 03/14/18 23:23 02:24 05:07 WBC RBC Hgb Hct MCV MCH MCHC RDW RDW Differential Plt Count MPV Immature Gran % (Auto) Neut % (Auto) Lymph % (Auto) [place] % (Auto) Eos % (Auto) Baso % (Auto) Absolute Neuts (auto) Absolute Lymphs (auto) Total Counted PT INR APTT D-Dimer Quant (PE/DVT) < 0.27 L Sodium Cancelled Potassium Cancelled Chloride Cancelled Carbon Dioxide Cancelled Anion Gap Cancelled BUN Cancelled Creatinine Cancelled Estim Creat Clear Calc Cancelled Est GFR (MDRD) Af Amer Cancelled Est GFR (MDRD) Non-Af Cancelled BUN/Creatinine Ratio Cancelled Glucose Cancelled Calcium Cancelled Troponin I < 0.015 Triglycerides Cancelled Cholesterol Cancelled LDL Cholesterol Cancelled VLDL Cholesterol Cancelled HDL Cholesterol Cancelled TSH Cancelled 03/14/18 03/14/18 03/14/18 05:07 05:07 05:07 WBC 6.6 RBC 4.99 Hgb 14.7 Hct 44.8 MCV 89.8 MCH 29.5 MCHC 32.8 RDW 13.9 RDW Differential 45.2 H Plt Count 207 MPV 10.0 Immature Gran % (Auto) 0.300 Neut % (Auto) 50.7 Lymph % (Auto) 34.0 [place] % (Auto) 10.6 H Eos % (Auto) 3.9 Baso % (Auto) 0.5 Absolute Neuts (auto) 3.4 Absolute Lymphs (auto) 2.25 Total Counted Not Reportable PT 12.0 INR 0.9 APTT 27.4 D-Dimer Quant (PE/DVT) Sodium 142 Potassium 3.3 L Chloride 108 H Carbon Dioxide 27.0 Anion Gap 7 BUN 17 Creatinine 1.83 H Estim Creat Clear Calc 55.18 Est GFR (MDRD) Af Amer 51 L Est GFR (MDRD) Non-Af 42 L BUN/Creatinine Ratio 9.3 L Glucose 106 Calcium 8.7 Troponin I < 0.015 Triglycerides 326 H Cholesterol 112 LDL Cholesterol 23 VLDL Cholesterol 65 H HDL Cholesterol 24 L TSH 0.32 L Discharge Diet: Low fat/ Low Cholesterol Discharge Activity: Return to Normal Activity Call your doctor if you observe: Shortness of breath, Dizziness, Fainting spells, Chest pain Home Medications: Medications to take at Discharge Ergocalciferol [Vitamin D] 50,000 unit PO QWEEK 04/21/15 Escitalopram Oxalate [Lexapro] 5 mg PO DAILY 04/21/15 Fish Oil/Dha/Epa [Fish Oil 1,200 mg Fish Oil] 1 ea PO DAILY 04/21/15 Allopurinol [Zyloprim] 100 mg PO DAILY 07/25/15 Hydrocodone Bitart/Apap 5-325 [[place] 5/325] 1 tab PO Q6H PRN PRN 07/25/15 Trimethoprim 1 tab PO QODAY 04/27/16 Atorvastatin Calcium [Lipitor] 80 mg PO QHS #30 tab 10/01/16 gabapentin 600 mg tablet 900 mg PO DAILY 05/10/17 vitamin B complex and vitamin C no.20-folic acid 1 mg capsule 1 cap PO QDAY 05/10/17 Aspirin E.C. [Ecotrin] 81 mg PO DAILY@0800 #30 tab 12/19/17 clopidogrel 75 mg tablet 75 mg PO DAILY #90 tab 12/29/17 metoprolol succinate ER 25 mg tablet,extended release 24 hr 25 mg PO DAILY #90 tab 12/29/17 isosorbide mononitrate ER 30 mg tablet,extended release 24 hr 30 mg PO DAILY #90 tab 12/30/17 Linaclotide [Linzess] 290 mcg PO DAILY PRN #10 capsule 02/25/18 Docusate Sodium [Colace] 100 mg PO DAILY PRN 03/14/18 Primary Care Physician: Brennan Ty MD [Primary Care Provider] - Please follow up with your Primary Care Physician in: 1 Week Please Follow Up With: Pascual Suarez MD When: As scheduled, 03/31/18 Disposition: Home Minutes spent on discharge:: 35 Patient Condition:: Stable Medical Necessity - Tobacco Use Smoking Status: Current every day smoker Meaningful Use Info Meaningful Use Diagnoses (Choose all that apply): None applicable <Lidya Tovar - Last Filed: 03/14/18 14:03> Discharge Date and Diagnosis - Secondary Discharge Diagnosis Chronic Problems (Last Reviewed 12/19/17 @ 07:33 by Manolo Thao MD) Neurogenic bladder (Chronic) Hx of coronary artery disease (Chronic) Chronic kidney disease, stage 3 (Chronic) History of coronary artery stent placement (Chronic ~09/29/16) PCI-HECTOR-Mid Cx 09/29/16 Atherosclerosis of coronary artery of [place] heart without angina pectoris (Chronic) PCI-HECTOR-Mid Cx 09/29/16 Sleep-disordered breathing (Chronic) NSVT (nonsustained ventricular tachycardia) (Chronic) Smoking addiction (Chronic) Hypertension (Chronic) Hyperlipidemia (Chronic) Osteoarthritis (Chronic) Spinal stenosis of lumbar region (Chronic) Chronic radicular lumbar pain (Chronic) STEMI (ST elevation myocardial infarction) (Chronic) Sciatica (Chronic) Hospital Course and Treatment Imaging Results: 03/14/18 05:55 Nuclear Stress Test - Treadmil [NM] AM (NON MEDS) Summary of Care Provided: Patient seen under my supervision by Halle PEÑA The patient is a 47 year old M was admitted with a complaint of chest pain. He does have a history of non-STEMI status post stent in the obtuse marginal. He came to the ER with chest pain which started when he was having intercourse. Troponins were negative and EKG showed no acute ST changes. Was admitted to be managed for chest pain. He had a stress test on 03/14/2018 which was negative. He remained stable and was discharged on 05/15/2017 to follow-up with his primary care doctor and senior instructor. Patient seen and examined prior to discharge. He had no complaints and felt well. His was by his bedside. He denies any fever chills, cough or chest pain, shortness of breath, abdominal pain, any diarrhea vomiting. Review of systems otherwise negative. Labs and vitals reviewed. Home medications reviewed and reconciled. On examination Vitals: [] Vital Signs Height 6 ft 1 in Weight: 214 lb 4.629 oz Weight in Pounds 214.3 lbs BMI 27.0 Pulse Ox 98 Temperature 98.1 F Pulse Rate 100 Respiratory Rate 16 Blood Pressure [2nd BP] 152/81 Blood Pressure 140/93 Blood Pressure Position [2nd Semi-Fowlers BP] Blood Pressure Position Semi-Fowlers General: Alert, Oriented x3, Cooperative HEENT: Atraumatic, PERRLA, EOMI, Normocephalic Neck: Supple, No JVD, Negative Carotid Bruits Lungs: Clear to auscultation, Normal air movement Cardiovascular: Regular rate, Regular Rhythm, Normal S1, Normal S2, No murmurs Abdomen: Bowel Sounds Present, Soft, Non Tender, non-distended Extremities: No edema, Capillary Refill Less than 3 Seconds Skin: No rashes, No breakdown Musculoskeletal: No Tenderness to Palpation of Joints or Extremities, Arthritic Changes Neurological: Cranial nerves II-XII grossly intact Psych/Mental Status: Normal Affect, Appropriate Plan as stated above. Agree with rest of note, assessment and plan by Halle Painting - Physical Exam Vital Signs Temp Pulse Resp BP Pulse Ox 98.1 F 100 16 140/93 H 98 03/14/18 12:40 03/14/18 12:47 03/14/18 12:40 03/14/18 12:40 03/14/18 12:40 Oxygen Flow Rate (L/min) 2 Oxygen Delivery Method Room Air Weight: 214 lb 4.629 oz Body Mass Index (BMI) 28.3 Intake and Output for Last 24 Hours 03/12/18 03/13/18 03/14/18 23:59 23:59 23:59 Intake Total 120 / 120 Balance 120 / 120 Laboratory Tests Past 24 Hrs 03/13/18 03/13/18 03/13/18 23:08 23:08 23:08 WBC 7.1 RBC 4.87 Hgb 14.3 Hct 44.4 MCV 91.2 MCH 29.4 MCHC 32.2 RDW 13.8 RDW Differential 45.3 H Plt Count 204 MPV 9.8 Immature Gran % (Auto) 0.100 Neut % (Auto) 60.7 Lymph % (Auto) 26.7 [place] % (Auto) 9.4 Eos % (Auto) 2.8 Baso % (Auto) 0.3 Absolute Neuts (auto) 4.3 Absolute Lymphs (auto) 1.90 Total Counted Not Reportable PT 12.8 INR 1.0 APTT D-Dimer Quant (PE/DVT) Sodium 140 Potassium 3.7 Chloride 108 H Carbon Dioxide 26.0 Anion Gap 6 BUN 15 Creatinine 2.11 H Estim Creat Clear Calc 47.86 Est GFR (MDRD) Af Amer 43 L Est GFR (MDRD) Non-Af 36 L BUN/Creatinine Ratio 7.1 L Glucose 82 Calcium 8.8 Troponin I < 0.015 Triglycerides Cholesterol LDL Cholesterol VLDL Cholesterol HDL Cholesterol TSH 03/13/18 03/14/18 03/14/18 23:23 02:24 05:07 WBC RBC Hgb Hct MCV MCH MCHC RDW RDW Differential Plt Count MPV Immature Gran % (Auto) Neut % (Auto) Lymph % (Auto) [place] % (Auto) Eos % (Auto) Baso % (Auto) Absolute Neuts (auto) Absolute Lymphs (auto) Total Counted PT INR APTT D-Dimer Quant (PE/DVT) < 0.27 L Sodium Cancelled Potassium Cancelled Chloride Cancelled Carbon Dioxide Cancelled Anion Gap Cancelled BUN Cancelled Creatinine Cancelled Estim Creat Clear Calc Cancelled Est GFR (MDRD) Af Amer Cancelled Est GFR (MDRD) Non-Af Cancelled BUN/Creatinine Ratio Cancelled Glucose Cancelled Calcium Cancelled Troponin I < 0.015 Triglycerides Cancelled Cholesterol Cancelled LDL Cholesterol Cancelled VLDL Cholesterol Cancelled HDL Cholesterol Cancelled TSH Cancelled 03/14/18 03/14/18 03/14/18 05:07 05:07 05:07 WBC 6.6 RBC 4.99 Hgb 14.7 Hct 44.8 MCV 89.8 MCH 29.5 MCHC 32.8 RDW 13.9 RDW Differential 45.2 H Plt Count 207 MPV 10.0 Immature Gran % (Auto) 0.300 Neut % (Auto) 50.7 Lymph % (Auto) 34.0 [place] % (Auto) 10.6 H Eos % (Auto) 3.9 Baso % (Auto) 0.5 Absolute Neuts (auto) 3.4 Absolute Lymphs (auto) 2.25 Total Counted Not Reportable PT 12.0 INR 0.9 APTT 27.4 D-Dimer Quant (PE/DVT) Sodium 142 Potassium 3.3 L Chloride 108 H Carbon Dioxide 27.0 Anion Gap 7 BUN 17 Creatinine 1.83 H Estim Creat Clear Calc 55.18 Est GFR (MDRD) Af Amer 51 L Est GFR (MDRD) Non-Af 42 L BUN/Creatinine Ratio 9.3 L Glucose 106 Calcium 8.7 Troponin I < 0.015 Triglycerides 326 H Cholesterol 112 LDL Cholesterol 23 VLDL Cholesterol 65 H HDL Cholesterol 24 L TSH 0.32 L Code Visit Inpatient E&M: 42716 Disch Hosp
--- NOTE | 2018-03-14 12:31 | STRESSREP_ITS ---
Stress Test Report Exercise myocardial perfusion stress test. 47-year-old man with a history of known coronary artery disease. Stress protocol: Rest EKG done which is normal sinus rhythm with a rate of 65 bpm normal intervals and noted resting blood pressure 142/96 mmHg. The patient exercised according to regular Rick protocol for total duration of 7 minutes and 30 seconds. The maximum heart rate attained was 148 bpm which was 86% of maximum predicted heart rate the maximum workload was 9.3 metabolic equivalents. At rest there were no ST or T wave changes noted suggest ischemia peak exercise upsloping ST changes only were noted with no meet the criteria for ischemia. No clinical angina was noted the test was terminated due to leg fatigue. The resting blood pressure was noted to be 142/96 with a peak blood pressure 178/88. Myocardial perfusion protocol. 14.1 mCi of technetium 99m sestamibi was injected at rest. The patient was exercised according to regular Rick protocol for total duration of 7-1/2 minutes at peak exercise 42.3 mCi of Senior Counsel 90 9M sestamibi was injected stress images were obtained stress and rest images were reconstructed and compared in the short axis vertical long horizontal long axis. Gated images were also obtained Perfusion SPECT analysis: Review of the stress images demonstrate normal uptake of tracer noted in all areas of the myocardium. The resting images similarly demonstrate normal uptake of tracer noted in all areas of the myocardium. No areas of reversibility are noted suggest ischemia no previous infarct is noted. Gated SPECT analysis: The gated ejection fraction is noted to be 60%. Conclusion: Normal exercise myocardial perfusion stress test at a moderate to high workload. No clinical angina noted. No arrhythmias noted. Preserved ejection fraction.
--- NOTE | 2018-03-14 12:41 | PCM.DC ---
You will use the following diet at home:: Cardiac Discharge Activity: Return to Normal Activity Call your doctor if you observe: Shortness of breath, Dizziness, Fainting spells, Chest pain Allergies/Adverse Reactions: Allergies sulfamethoxazole [From Bactrim] Allergy (Mild, Verified 03/13/18 23:09) Rash trimethoprim [From Bactrim] Allergy (Mild, Verified 03/13/18 23:09) Rash bupropion [From Wellbutrin] Adverse Reaction (Verified 03/13/18 23:09) Elevated BP Medications to take at Discharge Ergocalciferol [Vitamin D] 50,000 unit PO QWEEK 04/21/15 Escitalopram Oxalate [Lexapro] 5 mg PO DAILY 04/21/15 Fish Oil/Dha/Epa [Fish Oil 1,200 mg Fish Oil] 1 ea PO DAILY 04/21/15 Allopurinol [Zyloprim] 100 mg PO DAILY 07/25/15 Hydrocodone Bitart/Apap 5-325 [[place] 5/325] 1 tab PO Q6H PRN PRN 07/25/15 Trimethoprim 1 tab PO QODAY 04/27/16 Atorvastatin Calcium [Lipitor] 80 mg PO QHS #30 tab 10/01/16 gabapentin 600 mg tablet 900 mg PO DAILY 05/10/17 vitamin B complex and vitamin C no.20-folic acid 1 mg capsule 1 cap PO QDAY 05/10/17 Aspirin E.C. [Ecotrin] 81 mg PO DAILY@0800 #30 tab 12/19/17 clopidogrel 75 mg tablet 75 mg PO DAILY #90 tab 12/29/17 metoprolol succinate ER 25 mg tablet,extended release 24 hr 25 mg PO DAILY #90 tab 12/29/17 isosorbide mononitrate ER 30 mg tablet,extended release 24 hr 30 mg PO DAILY #90 tab 12/30/17 Linaclotide [Linzess] 290 mcg PO DAILY PRN #10 capsule 02/25/18 Docusate Sodium [Colace] 100 mg PO DAILY PRN 03/14/18 Primary Care Physician: Brennan Ty MD [Primary Care Provider] - Please follow up with your Primary Care Physician in: 1 Week Test Results: Test results from this visit will be discussed in further detail at your follow-up appointment, if applicable. Please Follow Up With: Pascual Suarez MD When: As scheduled, 03/31/18 Proposed Discharge Date: 03/14/18
[2018-03-14] MEDS: Isosorbide Mononitrate 30 MG Tablet PO (12:42)
[2018-03-14] MEDS: Folic Acid/Vitamin B Comp W-C 1 Capsule 1 CAP PO (12:42)
[2018-03-14] MEDS: Escitalopram Oxalate 10 MG Tablet 5 MG PO (12:42)
[2018-03-14] MEDS: Allopurinol 100 MG Tablet PO (12:43)
[2018-03-14] MEDS: Gabapentin 300 MG Capsule 900 MG PO (12:46)
[2018-03-14] MEDS: Metoprolol(XL)Succ 25 MG Tablet PO (12:47)
== END 2018-03-14 12:42 | disposition home or self-care (01) ==
LOC: ED 23:26 → PCU 03-14 01:13
PROVIDERS: Admitting Provider Internal Medicine; Emergency Provider Emergency Medicine; Family Provider Family Medicine; PCP Family Medicine; Visit Provider Student in an Organized Health Care Education/Training Program
DX: R07.89 Other chest pain (principal); E87.6 Hypokalemia; I12.9 Hypertensive chronic kidney disease with stage 1 through stage 4 chronic kidney disease, or unspecified chronic kidney disease; N18.3 Chronic kidney disease, stage 3 (moderate); N17.9 Acute kidney failure, unspecified; I25.10 Atherosclerotic heart disease of native coronary artery without angina pectoris; N31.9 Neuromuscular dysfunction of bladder, unspecified; E78.5 Hyperlipidemia, unspecified; M48.061 Spinal stenosis, lumbar region without neurogenic claudication; I25.2 Old myocardial infarction; Z79.899 Other long term (current) drug therapy; Z79.02 Long term (current) use of antithrombotics/antiplatelets; Z79.82 Long term (current) use of aspirin; M19.90 Unspecified osteoarthritis, unspecified site; Z95.5 Presence of coronary angioplasty implant and graft; R06.02 Shortness of breath; I47.2 Ventricular tachycardia; G89.29 Other chronic pain; Z87.440 Personal history of urinary (tract) infections; F17.210 Nicotine dependence, cigarettes, uncomplicated
CPT/HCPCS: 36415; 71046; 78452; 80048; 80061; 84443; 84484; 85025; 85379; 85610; 85730; 93005; 93017; 99218; 99285; 99406; A9500; J7040; A4216; G0378

== ENCOUNTER 2018-05-01 13:52 | Emergency (ER) | payer MEDICARE, SELFPAY ==
[2016-10-01 10:17] VITALS: BMI 27.0
[2018-05-01] VITALS (7 sets, daily range): BP systolic 128–167; BP diastolic 89–100; PULSE 67–94; RESP 14–19; TEMP 36.8; O2SAT 96–98; BMI 26.8
--- NOTE | 2018-05-01 14:12 | EKG12_ITS ---
Test Reason : CP Blood Pressure : / mmHG Vent. Rate : 094 BPM Atrial Rate : 094 BPM P-R Int : 146 ms QRS Dur : 082 ms QT Int : 330 ms P-R-T Axes : 061 060 059 degrees QTc Int : 412 ms Normal sinus rhythm Normal ECG Confirmed by WICHO ROBERTS, HOA ([id number]), loan expeditor BANDAR CARSON ([id number]) on 05/04/2018 12:55:48 PM Referred By: DC Confirmed By:HOA SANDS MD
--- NOTE | 2018-05-01 14:15 | RAD_ITS ---
STUDY: X-RAY CHEST REASON FOR EXAM: Male, 48 years old. Acute chest pain TECHNIQUE: Single AP portable view of the chest. COMPARISON: 03/13/2018 FINDINGS: EKG leads overlie the chest The lungs are clear and expanded. There is no demonstrated pleural abnormality. Normal size heart. Normal mediastinum and jayde. Normal visualized pulmonary arteries. Normal visualized aortic arch and descending thoracic aorta. Normal visualized thoracic spine. Normal visualized ribs, clavicles, and shoulders. There is no demonstrated abnormality of the visualized soft tissue structures of the upper abdomen. RAD/Chest 1 View (Portable) IMPRESSION: Normal x-ray examination of the chest. Electronically Signed: Sae Ba MD at 15:34 EST , Service support ,
[2018-05-01] MEDS: Aspirin 81 MG TAB.CHEW 324 MG PO (14:28)
[2018-05-01 14:34] LABS: Absolute Lymphocyte Count 2.14 X10^3/ul (0.83-4.51); Absolute Neutrophil Count 5.7 X10^3/uL (2.0-7.7); Basophil# 0.03 X10^3/uL; Basophil% 0.3 % (0-1); Eosinophil# 0.17 X10^3/uL; Hematocrit 48.2 % (40-54); Hemoglobin 15.7 g/dl (13.0-16.5); Lymphocyte # 2.14 X10^3/ul (4.0); Lymphocyte % 24.6 % (19-41); Mean Corp Hgb Conc 32.6 g/gl (32-36); Mean Corpuscular Hgb 29.5 pg (27.0-32.0); Mean Corpuscular Volume 90.4 fL (80-94); Mean Platelet Vol. 9.4 fl (6.2-12.0); Monocyte# 0.63 X10^3/uL; Monocyte% 7.2 % (0-10); Neutrophil # 5.72 X10^3/uL (2.7-7.7); Neutrophil % 65.7 % (47-70); Platelet Count 241 K/mm3 (150-450); RBC Distribution Width CV 13.6 % (11.6-14.6); RBC Distribution Width SD 44.6 fl (35.1-43.9); Red Blood Count 5.33 M/mm3 (4.6-6.2); White Blood Count 8.7 K/mm3 (4.4-11.0)
[2018-05-01 14:35] LABS: POSITIVE COUNT NO; POSITIVE DIFFERENTIAL NO; POSITIVE MORPHOLOGY NO
[2018-05-01 14:41] LABS: Anion Gap 7 (5-15); BUN 19 mg/dL (7-18); BUN/Creat Ratio 9.7 RATIO (10-20); Calcium,Total 9.1 mg/dL (8.5-10.1); Chloride 109 mmol/L (98-107); Creatinine, Serum 1.96 mg/dL (0.70-1.30); EST Glomerular Filtration Rate 39 mL/min (>60); Est Glom Filt Rate - Afr Amer 47 mL/min (>60); Estimated Creatinine Clearance 50.96 ml/min; Glucose 99 mg/dL (74-106); Sodium Level 140 mmol/L (136-145)
--- NOTE | 2018-05-01 14:48 | ED.RN ---
Pt states he has to straight cath himself for urine due to chronic kidney disease. Pt states he has his own equipment to due so. Pt educated on sterile process. Given specialize wipe and sterile specimen cup.
[2018-05-01 14:50] LABS: Mucous, Urine 0 SEEN /hpf (<or=2+)
[2018-05-01 14:57] LABS: Color, Urine Yellow (Yellow); Glucose, Dipstick Normal (Normal); Ketone-Dipstick Negative (Negative); Leukocyte Esterase-Dipstick 500 /ul (Negative); Nitrite-Dipstick Positive (Negative); Occult Blood-Urine 50 /ul (Negative); Protein-Dipstick 100 mg/dl (Negative); Specific Gravity, Urine 1.015 (1.002-1.030); Urine Bilirubin Dipstick Negative (Negative); Urine Clarity Sl. Cloudy (Clear); Urine Urobilinogen Normal (Normal)
[2018-05-01 14:59] LABS: Amorphous Sediment 1+; Bacteria 2+ /hpf (None Seen); Red Blood Cells-Urine 0-5 SEEN /hpf (0-5); Squamous Epithelial Cells - UA 0-5 SEEN /hpf (0-5); White Blood Cells 25-50 SEEN /hpf (0-5)
--- NOTE | 2018-05-01 15:39 | ED.VISSUMM ---
- ER Visit Summary Date of Service: 05/01/18 Chief Complaint: Chest pressure History of Present Illness: The patient is a 48 M with chest pressure that started earlier today. It came on gradually. It radiates to his back, arms, and teeth. He feels woozy and sweaty. He had similar symptoms in the past with an MS. He saw his primary care doctor who did an EKG and told him it did not look ischemic, but he wanted him to be evaluated in the emergency department. He had an MS with 1 stent placed in September 2016. He had a normal stress test in March 2018. Patient is a smoker. Also reports a history of hypertension and hyperlipidemia. Denies any history of PE or aortic disease. Denies any history of stimulant use. Patient has a history of chronic kidney disease. He self caths. He is concerned he might have a UTI. Denies fever. Physical Examination: Afebrile and vital signs unremarkable except for a blood pressure of 167/100. Heart regular rate and rhythm. Lungs clear. Abdomen soft. Skin, calves, pulses are all unremarkable. Test Results: EKG showed sinus rhythm at a rate of 94. No sign of acute ischemia or infarction pattern. Chest x-ray was normal. CBC normal. BMP showed a BUN of 19 and a creatinine of 1.96. Urinalysis was positive for UTI. Troponin was normal. Emergency Department Course and Treatment: Patient was placed on a monitor. EKG was done and unremarkable. Labs and chest x-ray performed. We also performed a urinalysis and send a urine culture. He has signs of a UTI. He is currently on Bactrim at home. He is not septic. Will check a culture and add Keflex. He can follow-up with his doctor for this. I spoke with Dr. Bravo who was on-call for cardiology. I reviewed his symptoms and workup as well as his prior testing. Dr. Bravo did not advise admission. He recommended repeat testing in the ED. If this is unremarkable, patient can follow-up as an outpatient. The oncoming emergency doctor will check the repeat testing. Treatment Plan: As above Disposition: Discharge pending normal delta testing Impression: 1. Chest pain 2. UTI This note was generated with [employer] software. It may contain incorrect words, spelling, and punctuation that were not noted in review of the chart prior to signing ED Disposition - Plan for ED Patient: Chief Complaint: Chest Pain Referrals: Brennan Ty MD [Primary Care Provider] -
--- NOTE | 2018-05-01 15:43 | ED.DCSUM_ITS ---
- ER Visit Summary Date of Service: 05/01/18 Chief Complaint: Chest pressure History of Present Illness: The patient is a 48 M with chest pressure that started earlier today. It came on gradually. It radiates to his back, arms, and teeth. He feels woozy and sweaty. He had similar symptoms in the past with an DC. He saw his primary care doctor who did an EKG and told him it did not look ischemic, but he wanted him to be evaluated in the emergency department. He had an DC with 1 stent placed in September 2016. He had a normal stress test in March 2018. Patient is a smoker. Also reports a history of hypertension and hyperlipidemia. Denies any history of PE or aortic disease. Denies any history of stimulant use. Patient has a history of chronic kidney disease. He self caths. He is concerned he might have a UTI. Denies fever. Physical Examination: Afebrile and vital signs unremarkable except for a blood pressure of 167/100. Heart regular rate and rhythm. Lungs clear. Abdomen soft. Skin, calves, pulses are all unremarkable. Test Results: EKG showed sinus rhythm at a rate of 94. No sign of acute ischemia or infarction pattern. Chest x-ray was normal. CBC normal. BMP showed a BUN of 19 and a creatinine of 1.96. Urinalysis was positive for UTI. Troponin was normal. Emergency Department Course and Treatment: Patient was placed on a monitor. EKG was done and unremarkable. Labs and chest x-ray performed. We also performed a urinalysis and send a urine culture. He has signs of a UTI. He is currently on Bactrim at home. He is not septic. Will check a culture and add Keflex. He can follow-up with his doctor for this. I spoke with Dr. Bravo who was on-call for cardiology. I reviewed his symptoms and workup as well as his prior testing. Dr. Bravo did not advise admission. He recommended repeat testing in the ED. If this is unremarkable, patient can follow-up as an outpatient. The oncoming emergency doctor will check the repeat testing. Treatment Plan: As above Disposition: Discharge pending normal delta testing Impression: 1. Chest pain 2. UTI This note was generated with [employer] software. It may contain incorrect words, spelling, and punctuation that were not noted in review of the chart prior to signing ED Disposition - Plan for ED Patient: Chief Complaint: Chest Pain Referrals: Brennan Ty MD [Primary Care Provider] -
--- NOTE | 2018-05-01 15:43 | ED.DEP ---
ED Disposition - Plan for ED Patient: Chief Complaint: Chest Pain Instructions: ED Chest Pain Atypical Unkn Cause Prescriptions: Cephalexin [Keflex] 500 mg PO Q6 #28 cap Referrals: Pascual Suarez MD [STAFF PHYSICIAN] -
[2018-05-01] MEDS: Cephalexin 250 MG Capsule 500 MG PO (16:21)
--- NOTE | 2018-05-01 18:04 | EKG12_ITS ---
Test Reason : REPEAT CP Blood Pressure : / mmHG Vent. Rate : 068 BPM Atrial Rate : 068 BPM P-R Int : 160 ms QRS Dur : 084 ms QT Int : 386 ms P-R-T Axes : 021 051 036 degrees QTc Int : 410 ms Normal sinus rhythm Normal ECG Confirmed by WICHO ROBERTS, HOA ([id number]), video tape editor BANDAR CARSON ([id number]) on 05/04/2018 1:07:20 PM Referred By: DC Confirmed By:HOA SANDS MD
== END 2018-05-01 18:23 | disposition home or self-care (01) ==
LOC: ED 14:28
PROVIDERS: Emergency Provider Emergency Medicine; Family Provider Family Medicine; PCP Family Medicine
DX: R07.9 Chest pain, unspecified (principal); N39.0 Urinary tract infection, site not specified; I12.9 Hypertensive chronic kidney disease with stage 1 through stage 4 chronic kidney disease, or unspecified chronic kidney disease; N18.9 Chronic kidney disease, unspecified; E78.5 Hyperlipidemia, unspecified; I25.2 Old myocardial infarction; Z95.5 Presence of coronary angioplasty implant and graft; F17.200 Nicotine dependence, unspecified, uncomplicated
CPT/HCPCS: 71045; 80048; 81001; 84484; 85025; 87077; 87086; 87088; 93005; 99285; A4216

== ENCOUNTER → 2018-07-31 10:48 | Outpatient (CLI) | payer MEDICARE, SELFPAY ==
[2018-07-02 13:03] VITALS: BMI 27.0
[2018-07-06 11:16] VITALS: BMI 26.8
[2018-07-31 13:17] LABS: Anion Gap 8 (5-15); BUN 13 mg/dL (7-18); BUN/Creat Ratio 7.5 RATIO (10-20); Calcium,Total 9.1 mg/dL (8.5-10.1); Chloride 107 mmol/L (98-107); Cholesterol 158 mg/dL (200); Creatinine, Serum 1.74 mg/dL (0.70-1.30); EST Glomerular Filtration Rate 44 mL/min (>60); Est Glom Filt Rate - Afr Amer 54 mL/min (>60); Glucose 123 mg/dL (74-106); High Density Lipoprotein 38 mg/dL; Potassium 4.2 mmol/L (3.5-5.1); Sodium Level 142 mmol/L (136-145); Thyroid Stim Hormone (TSH) 0.95 uIU/mL (0.358-3.74); Triglycerides 233 mg/dL; Very Low Density Lipoprotein 47 mg/dL (5-40)
== END ==
PROVIDERS: Family Provider Family Medicine; PCP Family Medicine; Referring Provider Family Medicine; Visit Provider Family Medicine
DX: I10 Essential (primary) hypertension (principal); I25.10 Atherosclerotic heart disease of native coronary artery without angina pectoris
CPT/HCPCS: 36415; 80048; 80061; 84443

== ENCOUNTER → 2019-01-11 15:43 | Outpatient (CLI) | payer MEDICARE, SELFPAY ==
[2018-07-02 13:03] VITALS: BMI 27.0
[2018-07-06 11:16] VITALS: BMI 26.8
== END ==
PROVIDERS: Family Provider Family Medicine; PCP Family Medicine; Referring Provider Nurse Practitioner Family; Visit Provider Nurse Practitioner Family
DX: R30.0 Dysuria (principal)
CPT/HCPCS: 87077; 87086; 87088; 87186

== ENCOUNTER → 2019-01-18 10:45 | Outpatient (CLI) | payer MEDICARE, SELFPAY ==
[2018-07-02 13:03] VITALS: BMI 27.0
[2018-07-06 11:16] VITALS: BMI 26.8
[2019-01-18 12:43] LABS: Anion Gap 10 (5-15); BUN 14 mg/dL (7-18); BUN/Creat Ratio 8.1 RATIO (10-20); Calcium,Total 8.8 mg/dL (8.5-10.1); Chloride 105 mmol/L (98-107); Creatinine, Serum 1.72 mg/dL (0.70-1.30); EST Glomerular Filtration Rate 45 mL/min (>60); Est Glom Filt Rate - Afr Amer 54 mL/min (>60); Glucose 257 mg/dL (74-106); Potassium 4.1 mmol/L (3.5-5.1); Sodium Level 138 mmol/L (136-145)
== END ==
PROVIDERS: Family Provider Family Medicine; PCP Family Medicine; Visit Provider Family Medicine
DX: N28.9 Disorder of kidney and ureter, unspecified (principal)
CPT/HCPCS: 36415; 80048

== ENCOUNTER → 2019-01-22 11:18 | Outpatient (CLI) | payer MEDICARE, SELFPAY ==
[2018-07-02 13:03] VITALS: BMI 27.0
[2018-07-06 11:16] VITALS: BMI 26.8
[2019-01-22 13:01] LABS: Absolute Lymphocyte Count 1.75 X10^3/uL (0.83-4.51); Absolute Neutrophil Count 5.2 X10^3/uL (2.0-7.7); Basophil# 0.07 X10^3/uL; Basophil% 0.9 % (0-1); Eosinophils% 2.6 % (0-5); Hematocrit 50.6 % (40-54); Hemoglobin 16.5 g/dL (13.0-16.5); Lymphocyte # 1.75 X10^3/ul (4.0); Lymphocyte % 22.6 % (19-41); Mean Corp Hgb Conc 32.6 g/dL (32-36); Mean Corpuscular Hgb 29.6 pg (27.0-32.0); Mean Corpuscular Volume 90.8 fL (80-94); Mean Platelet Vol. 9.6 fl (6.2-12.0); Monocyte# 0.45 X10^3/uL; Monocyte% 5.8 % (0-10); NRBC Flagged by Analyzer 0 % (0-5); Neutrophil # 5.18 X10^3/uL (2.7-7.7); Neutrophil % 66.9 % (47-70); Platelet Count 248 K/mm3 (150-450); RBC Distribution Width CV 12.6 % (11.6-14.6); RBC Distribution Width SD 41.8 fl (35.1-43.9); Red Blood Count 5.57 M/mm3 (4.6-6.2); White Blood Count 7.7 K/mm3 (4.4-11.0)
[2019-01-22 13:35] LABS: ALB/GLOB Ratio 0.9 RATIO (0.9-2.4); AST(SGOT) 79 U/L (15-37); Alanine Aminotransfer ALT/SGPT 107 U/L (16-61); Albumin, Serum 3.8 g/dL (3.2-5.0); Alkaline Phosphatase 125 U/L (45-117); Anion Gap 8 (5-15); BUN 13 mg/dL (7-18); BUN/Creat Ratio 6.8 RATIO (10-20); Calcium,Total 9.4 mg/dL (8.5-10.1); Chloride 106 mmol/L (98-107); Creatinine, Serum 1.91 mg/dL (0.70-1.30); EST Glomerular Filtration Rate 40 mL/min (>60); Est Glom Filt Rate - Afr Amer 48 mL/min (>60); Globulin 4.1 g/dL (2.2-4.2); Glucose 140 mg/dL (74-106); Potassium 3.9 mmol/L (3.5-5.1); Protein, Total 7.9 g/dL (6.4-8.2); Sodium Level 139 mmol/L (136-145)
== END ==
PROVIDERS: Family Provider Family Medicine; PCP Family Medicine; Referring Provider Family Medicine; Visit Provider Family Medicine
DX: R61 Generalized hyperhidrosis (principal)
CPT/HCPCS: 36415; 80053; 84484; 85025

== ENCOUNTER → 2019-02-22 16:16 | Outpatient (CLI) | payer MEDICARE, SELFPAY ==
[2018-07-02 13:03] VITALS: BMI 27.0
[2018-07-06 11:16] VITALS: BMI 26.8
== END ==
PROVIDERS: Family Provider Family Medicine; PCP Family Medicine; Referring Provider Family Medicine; Visit Provider Family Medicine
DX: N39.0 Urinary tract infection, site not specified (principal)
CPT/HCPCS: 87077; 87086; 87088; 87186

== ENCOUNTER → 2019-03-09 10:59 | Outpatient (CLI) | payer MEDICARE, SELFPAY ==
[2018-07-02 13:03] VITALS: BMI 27.0
[2018-07-06 11:16] VITALS: BMI 26.8
[2019-03-09 13:10] LABS: Anion Gap 6 (5-15); BUN 14 mg/dL (7-18); BUN/Creat Ratio 8.4 RATIO (10-20); Calcium,Total 9.1 mg/dL (8.5-10.1); Chloride 109 mmol/L (98-107); Creatinine, Serum 1.66 mg/dL (0.70-1.30); EST Glomerular Filtration Rate 47 mL/min (>60); Est Glom Filt Rate - Afr Amer 57 mL/min (>60); Glucose 175 mg/dL (74-106); Sodium Level 138 mmol/L (136-145)
== END ==
PROVIDERS: Family Provider Family Medicine; PCP Family Medicine; Referring Provider Family Medicine; Visit Provider Family Medicine
DX: N19 Unspecified kidney failure (principal)
CPT/HCPCS: 36415; 80048

== ENCOUNTER 2019-05-07 16:31 | Emergency (ER) | payer MEDICARE, SELFPAY ==
[2018-07-02 13:03] VITALS: BMI 27.0
[2018-07-06 11:16] VITALS: BMI 26.8
[2019-05-07 16:33] VITALS: BP 162/108; PULSE 74; RESP 18; TEMP 36.5; O2SAT 97; BMI 28.6
[2019-05-07 17:04] LABS: Absolute Neutrophil Count 5.3 X10^3/uL (2.0-7.7); Basophil# 0.04 X10^3/uL; Basophil% 0.5 % (0-1); Eosinophils% 3.7 % (0-5); Hematocrit 49.4 % (40-54); Hemoglobin 16.3 g/dL (13.0-16.5); Lymphocyte % 23.7 % (19-41); Mean Corpuscular Hgb 29.6 pg (27.0-32.0); Mean Corpuscular Volume 89.8 fL (80-94); Mean Platelet Vol. 9.3 fl (6.2-12.0); Monocyte# 0.48 X10^3/uL; NRBC Flagged by Analyzer 0 % (0-5); Neutrophil # 5.28 X10^3/uL (2.7-7.7); Neutrophil % 65.9 % (47-70); Platelet Count 222 K/mm3 (150-450); RBC Distribution Width CV 12.8 % (11.6-14.6); RBC Distribution Width SD 42.1 fl (35.1-43.9)
[2019-05-07 17:20] LABS: Anion Gap 7 (5-15); BUN 10 mg/dL (7-18); BUN/Creat Ratio 5.4 RATIO (10-20); Calcium,Total 9.4 mg/dL (8.5-10.1); Chloride 104 mmol/L (98-107); Creatinine, Serum 1.86 mg/dL (0.70-1.30); EST Glomerular Filtration Rate 41 mL/min (>60); Est Glom Filt Rate - Afr Amer 50 mL/min (>60); Glucose 196 mg/dL (74-106); Potassium 3.6 mmol/L (3.5-5.1); Sodium Level 138 mmol/L (136-145)
[2019-05-07 17:51] VITALS: BP 123/86; PULSE 69; RESP 14; TEMP 36.5; O2SAT 97
--- NOTE | 2019-05-07 18:06 | RAD_ITS ---
STUDY: X-RAY CHEST REASON FOR EXAM: Male, 49 years old. ANGINA, HX HEART ATTACK, GENERAL ILLNESS TECHNIQUE: Single AP portable view of the chest. COMPARISON: Previous study of 05/01/2018 FINDINGS: compliance monitor leads are present. The lungs are clear and expanded. There is no demonstrated pleural abnormality. Normal size heart. Normal mediastinum and jayde. Normal visualized pulmonary arteries. Normal visualized aortic arch and descending thoracic aorta. Normal visualized thoracic spine. Normal visualized ribs, clavicles, and shoulders. There is no demonstrated abnormality of the visualized soft tissue structures of the upper abdomen. RAD/Chest 1 View (Portable) IMPRESSION: Normal x-ray examination of the chest. Electronically Signed: Maximo Fleming MD at 18:36 EST , Service support ,
--- NOTE | 2019-05-07 18:06 | EKG12_ITS ---
Test Reason : CP Blood Pressure : / mmHG Vent. Rate : 074 BPM Atrial Rate : 074 BPM P-R Int : 144 ms QRS Dur : 084 ms QT Int : 394 ms P-R-T Axes : 040 073 068 degrees QTc Int : 437 ms Normal sinus rhythm Normal ECG Confirmed by MOISES ROBERTS, MARGIE ([id number]), production editor EZEQUIEL LUDWIG ([id number]) on 05/10/2019 12:51:30 PM Referred By: JASON Confirmed By:MARGIE DE LEON MD
--- NOTE | 2019-05-07 18:13 | ED.VISSUMM ---
- ER Visit Summary Date of Service: 05/07/19 Chief Complaint: Multiple complaints History of Present Illness: The patient is a 49 M presenting with multiple complaints. Patient states he had elevated blood pressure earlier today. He had readings of 191/134 and 145/102. He currently takes metoprolol and isosorbide. His blood pressure in the ED is 123/86. He states he had 1 to 2 minutes of chest pain 6 hours ago. No current chest pain. He complains of back pain and kidney pain. He took Vanderbilt and this improved his symptoms. He has a history of neurogenic bladder and self catheterizes. He states he knows when he feels a urinary tract infection coming on and feels that he has urinary tract infection. He also complains of headache and blurry vision. He states the blurry vision has been ongoing for several months. He is scheduled to have a A1c test done to check his blood sugar that has been running high. Physical Examination: Vitals are stable. Patient is afebrile. Alert no acute distress. HEENT exam is unremarkable. Neck is supple. Lungs are clear and equal bilaterally. Heart is regular rate and rhythm. Abdomen is soft nontender nondistended. Extremities are unremarkable. Skin is warm and dry. No focal neurologic deficit. Remainder of exam is unremarkable. Emergency Department Course and Treatment: CBC, chemistries unremarkable other than glucose 196, creatinine 1.86, this is near his baseline. Patient was given Reglan, Benadryl IV for his headache with improvement. Urinalysis shows 10-25 white blood cells, 0-5 red blood cells, 2+ bacteria. Urine culture was sent. Troponin is negative. Chest x-ray shows no acute process. EKG is sinus rhythm rate of 74 with no acute ischemic changes. On reevaluation patient is resting comfortably. He is advised to follow-up with his primary care physician for blood pressure recheck and his hemoglobin A1c. He states he typically takes trimethoprim when he gets a UTI. He has this available to him at home. He is advised to take this as directed. Advised to follow-up with primary care physician. Advised return to ED if worsening complaints. Disposition: Discharge home Impression: Hypertension, UTI This note was generated with [employer] dictation software. It may contain incorrect words, spelling, and punctuation that were not noted in review of the chart prior to signing ED Disposition - Plan for ED Patient: Referrals: Brennan Ty MD [Primary Care Provider] -
[2019-05-07] MEDS: Metoclopramide 10 MG/2 ML Vial 5 MG IV (18:20)
[2019-05-07] MEDS: DiphenhydrAMINE 50 MG/ML Syringe 25 MG IV (18:20)
[2019-05-07 19:00] LABS: Mucous, Urine 0 SEEN /hpf (<or=2+); Squamous Epithelial Cells - UA 0 SEEN /hpf (0-5)
[2019-05-07 19:15] LABS: Color, Urine Yellow (Yellow); Glucose, Dipstick Normal (Normal); Ketone-Dipstick 5 mg/dl (Negative); Leukocyte Esterase-Dipstick 500 /ul (Negative); Nitrite-Dipstick Negative (Negative); Occult Blood-Urine 25 /ul (Negative); Protein-Dipstick 100 mg/dl (Negative); Urine Bilirubin Dipstick Negative (Negative); Urine Clarity Cloudy (Clear); Urine Urobilinogen Normal (Normal)
[2019-05-07 19:30] LABS: White Blood Cells 10-25 SEEN /hpf (0-5)
[2019-05-07 19:31] LABS: Bacteria 2+ /hpf (None Seen); Red Blood Cells-Urine 0-5 SEEN /hpf (0-5)
[2019-05-07 20:00] VITALS: BP 155/109; PULSE 55; RESP 16; O2SAT 96
--- NOTE | 2019-05-07 20:03 | ED.DEP ---
ED Disposition - Plan for ED Patient: Instructions: Understanding Urinary Tract Infections (UTIs), High Blood Pressure (Hypertension) Referrals: Brennan Ty MD [Primary Care Provider] -
== END 2019-05-07 20:21 | disposition home or self-care (01) ==
LOC: ED 18:15
PROVIDERS: Emergency Provider Emergency Medicine; Family Provider Family Medicine; PCP Family Medicine
DX: I13.0 Hypertensive heart and chronic kidney disease with heart failure and stage 1 through stage 4 chronic kidney disease, or unspecified chronic kidney disease (principal); N39.0 Urinary tract infection, site not specified; N18.9 Chronic kidney disease, unspecified; I50.9 Heart failure, unspecified; I25.2 Old myocardial infarction; N31.9 Neuromuscular dysfunction of bladder, unspecified; I25.10 Atherosclerotic heart disease of native coronary artery without angina pectoris; E78.00 Pure hypercholesterolemia, unspecified; Z72.0 Tobacco use
CPT/HCPCS: 71045; 80048; 81001; 84484; 85025; 87077; 87086; 87088; 87186; 93005; 96374; 96375; 99285; A4216

== ENCOUNTER → 2019-05-14 08:04 | Outpatient (CLI) | payer MEDICARE, SELFPAY ==
[2018-07-02 13:03] VITALS: BMI 27.0
[2019-05-07 16:33] VITALS: BMI 28.6
--- NOTE | 2019-05-14 08:10 | RAD_ITS ---
STUDY: X-RAY - LUMBAR SPINE REASON FOR EXAM: Male, 49 years old. BACK PAIN W/ RADIATION TOWARD NECK. SCIATICA, RIGHT LEG. SPINAL STENOSIS, DDD. HX OLD FALL TECHNIQUE: 2 view(s) of the lumbar spine were obtained. COMPARISON: CT abdomen and pelvis sagittal reformation [id number] FINDINGS: There is straightening of the normal lumbar lordosis. There is no substantial scoliosis. There is a normal alignment of the vertebrae. Minimal spurring along the superior endplate L3, L4 and less L5. Mild posterior disc space narrowing L3 5, not as clearly visualized as on CT. The soft tissue structures are unremarkable. Intestinal sutures in the right abdomen and right pelvis. RAD/Lumbar Spine 2 or 3 Views IMPRESSION: Mild degenerative changes. There is straightening of the normal lordotic curve, a nonspecific finding, which may be due to positioning or which might be due to muscle spasm. There is no acute displaced fracture or dislocation. Electronically Signed: Caitlin Finn MD at 23:03 EST , Service support ,
== END ==
PROVIDERS: Family Provider Family Medicine; PCP Family Medicine; Referring Provider Anesthesiology Pain Medicine; Visit Provider Anesthesiology Pain Medicine
DX: M54.9 Dorsalgia, unspecified (principal)
CPT/HCPCS: 72100

== ENCOUNTER → 2019-05-20 16:24 | Outpatient (CLI) | payer MEDICARE, SELFPAY ==
[2018-07-02 13:03] VITALS: BMI 27.0
[2019-05-07 16:33] VITALS: BMI 28.6
[2019-05-20 19:26] LABS: Anion Gap 6 (5-15); BUN 12 mg/dL (7-18); BUN/Creat Ratio 7.1 RATIO (10-20); Calcium,Total 9.5 mg/dL (8.5-10.1); Chloride 108 mmol/L (98-107); Cholesterol 183 mg/dL (200); EST Glomerular Filtration Rate 45 mL/min (>60); Est Glom Filt Rate - Afr Amer 55 mL/min (>60); Glucose 89 mg/dL (74-106); High Density Lipoprotein 36 mg/dL; PSA,Total - Annual Screen 3.04 ng/mL (0.00-4.00); Potassium 4.3 mmol/L (3.5-5.1); Sodium Level 141 mmol/L (136-145); Triglycerides 427 mg/dL
== END ==
PROVIDERS: PCP Family Medicine; Visit Provider Family Medicine
DX: Z00.00 Encounter for general adult medical examination without abnormal findings (principal); I10 Essential (primary) hypertension; Z12.5 Encounter for screening for malignant neoplasm of prostate
CPT/HCPCS: 36415; 80048; 80061; 84153; G0103

== ENCOUNTER 2019-06-05 18:55 | Emergency (ER) | payer MEDICARE, SELFPAY ==
[2018-07-02 13:03] VITALS: BMI 27.0
[2019-06-05 18:56] VITALS: BP 148/92; PULSE 79; RESP 16; TEMP 36.7; O2SAT 96; BMI 29.5
[2019-06-05 19:08] VITALS: BP 136/94; PULSE 73; RESP 15; O2SAT 97
[2019-06-05 19:26] LABS: Bedside Glucose 184 mg/dL (70-110)
--- NOTE | 2019-06-05 19:32 | EKG12_ITS ---
Test Reason : HTN Blood Pressure : / mmHG Vent. Rate : 067 BPM Atrial Rate : 067 BPM P-R Int : 154 ms QRS Dur : 082 ms QT Int : 398 ms P-R-T Axes : 016 037 039 degrees QTc Int : 420 ms Normal sinus rhythm Normal ECG Confirmed by MOISES ROBERTS, MARGIE ([id number]), editor news EZEQUIEL LUDWIG ([id number]) on 06/08/2019 8:31:46 AM Referred By: JUAN Confirmed By:MARGIE DE LEON MD
--- NOTE | 2019-06-05 19:57 | ED.VIS.GEN ---
History of Present Illness Chief Complaint: Hypertension Informant: Patient Onset: Today Maximum Severity: Mild Narrative: Patient reports history of hypertension, prior stroke prior [place] his general health has been good he is on multiple blood pressure medications. He had a normal day in every way today but after work he noted his blood pressure was elevated to about 180/90 elated was elevated to about 250 over about 100 using his monitoring device, he is permitted to take Lopressor so he took 50 mg of Lopressor, and he presented to the emergency for evaluation on arrival his blood pressure is 130/80. He denies head neck chest or abdominal pain no numbness weakness paresthesias he has a chronic left facial droop from prior stroke that is unchanged he indicates he had a normal day at work today he has been watching his diet no extra salt intake he is eating and drinking well bowel and bladder habits unremarkable review of systems is negative, as he sits in the bed his blood pressure is 130/80 and he has no complaints Recent Illness/Hospitalization: Yes Past Medical History - Allergies and Home Meds Allergies/Adverse Reactions: Allergies sulfamethoxazole [From Bactrim] Allergy (Mild, Verified 06/05/19 18:59) Rash trimethoprim [From Bactrim] Allergy (Mild, Verified 06/05/19 18:59) Rash bupropion [From Wellbutrin] Adverse Reaction (Verified 06/05/19 18:59) Elevated BP Primary Care Physician: Brennan Ty MD [Primary Care Provider] - Past Medical History: - Surgical History: - Smoking Status: Current every day smoker - Family History Maternal Family History: Family History (Last Reviewed 07/03/18 @ 10:20 by Pascual Connell MD) Grandfather CAD (coronary artery disease) Family History: Reports: No pertinent history Paternal Family History: Family History (Last Reviewed 07/03/18 @ 10:20 by Pascual Connell MD) Grandfather CAD (coronary artery disease) Family History: Reports: Hypertension Review of Systems ROS: - As above General: Reports: -. Denies: Chills, Fever, Sweats Eyes: Denies: Visual changes - bilaterally, Diplopia ENT: Denies: Rhinorrhea, Sore throat Cardiovascular: Denies: Chest pain, Palpitations Respiratory: Denies: Dyspnea, Cough, Dyspnea on exertion Gastrointestinal: Denies: Abdominal pain, Nausea, Vomiting, Diarrhea, Melena, Hematochezia Genitourinary: Denies: Dysuria, Hematuria, Frequency Musculoskeletal: Denies: Back pain, Extremity Pain Skin: Denies: Rash, Wounds Neurological: Denies: Headache, Weakness, Numbness Physical Exam Vital Signs/Narrative: Vital Signs Temp Pulse Resp BP Pulse Ox 06/05/19 19:08 73 15 136/94 H 97 06/05/19 18:56 98.0 F 79 16 148/92 H 96 General: Well nourished, Well developed, No Acute Distress, - - Have the left facial droop as above Head: Normocephalic, Atraumatic Eyes: Perrl, EOMI ENT: Moist mucous membranes, No rhinorrhea Neck: Supple, Nontender Cardiovascular: Regular rate, Regular rhythm, No murmurs Respiratory: No distress, CTA bilaterally, Chest nontender Abdomen: Soft, Nontender, Nondistended, Normal bowel sounds Back: Nontender, Normal Inspection Extremities: Nontender, No edema Skin: Normal color, No rash Neurological: Alert, Oriented x3, Cranial nerves II-XII grossly intact, Normal Strength, Normal Sensation Psychological: Normal affect, Normal Mood Diagnostic/Tx/Re-eval - Medical Decision Making The patient's EKG shows a sinus rhythm nothing acute his blood pressure is 130/80 he is walking around the emergency department he insists he feels back to his baseline he is concerned as to why his blood pressure would spike so high he indicates he is scheduled to see his outpatient provider Dr. Ty Friday, he saw Dr. Ty a few weeks ago had routine blood test that his knowledge are unremarkable at this time we will continue to observe the patient will contact contact Dr. Ty to discuss the case Patient EKG again shows a sinus rhythm with no acute interval changes no injury pattern, he has had a blood pressure as above during his observation. The ED spoke with Dr. Rogers on-call for Dr. Ty he agrees the patient be discharged home follow-up in the office for further management patient will basically monitor his blood pressure contact his outpatient providers return to the emergency department if his symptoms change or he seems to have issues with his blood pressure and keep his appointment for Friday Home stable Impression final hypertension exacerbation ED Disposition - Plan for ED Patient: Diagnosis: Hypertension Instructions: HYPERTENSION, Established Referrals: Brennan Ty MD [Primary Care Provider] -
== END 2019-06-05 21:02 | disposition home or self-care (01) ==
LOC: ED 19:52
PROVIDERS: Emergency Provider Emergency Medicine; PCP Family Medicine
DX: I10 Essential (primary) hypertension (principal); R29.810 Facial weakness; F17.200 Nicotine dependence, unspecified, uncomplicated; I25.2 Old myocardial infarction; Z82.49 Family history of ischemic heart disease and other diseases of the circulatory system; Z86.73 Personal history of transient ischemic attack (TIA), and cerebral infarction without residual deficits; Z88.1 Allergy status to other antibiotic agents; Z88.2 Allergy status to sulfonamides; Z79.899 Other long term (current) drug therapy
CPT/HCPCS: 82962; 93005; 99282

== ENCOUNTER 2019-07-25 17:45 | Emergency (ER) | payer MEDICARE, SELFPAY ==
[2018-07-02 13:03] VITALS: BMI 27.0
[2019-07-25 17:47] VITALS: BP 149/92; PULSE 88; RESP 15; TEMP 37; O2SAT 98; BMI 28.7
--- NOTE | 2019-07-25 18:00 | EKG12_ITS ---
Test Reason : CP Blood Pressure : / mmHG Vent. Rate : 086 BPM Atrial Rate : 086 BPM P-R Int : 152 ms QRS Dur : 084 ms QT Int : 350 ms P-R-T Axes : 051 061 061 degrees QTc Int : 418 ms Normal sinus rhythm Normal ECG Confirmed by MOISES ROBERTS, MARGIE ([id number]), sports editor EZEQUIEL LUDWIG ([id number]) on 07/27/2019 8:28:22 AM Referred By: HSAKIR Confirmed By:MARGIE DE LEON MD
--- NOTE | 2019-07-25 18:00 | RAD_ITS ---
STUDY: X-RAY CHEST REASON FOR EXAM: Male, 49 years old. Chest pain TECHNIQUE: Frontal view of the chest COMPARISON: 05/07/2019 FINDINGS: The lungs are clear. There are no pleural effusions. There is no pneumothorax. The heart is normal in size. The visualized osseous structures are within normal limits. RAD/Chest 1 View (Portable) IMPRESSION: No acute thoracic pathology. Electronically Signed: Byron Vegas, at 18:37 EDT Tel , Service support ,
[2019-07-25] MEDS: Aspirin 81 MG TAB.CHEW 324 MG PO (18:10)
[2019-07-25 18:11] VITALS: O2SAT 97
[2019-07-25 18:25] LABS: Absolute Lymphocyte Count 1.88 X10^3/uL (0.83-4.51); Basophil# 0.04 X10^3/uL; Basophil% 0.5 % (0-1); Eosinophil# 0.16 X10^3/uL; Eosinophils% 2.1 % (0-5); Hematocrit 48.1 % (40-54); Hemoglobin 15.4 g/dL (13.0-16.5); Lymphocyte # 1.88 X10^3/ul (4.0); Lymphocyte % 25.1 % (19-41); Mean Corpuscular Hgb 29.6 pg (27.0-32.0); Mean Corpuscular Volume 92.3 fL (80-94); Mean Platelet Vol. 9.2 fl (6.2-12.0); Monocyte# 0.41 X10^3/uL; Monocyte% 5.5 % (0-10); NRBC Flagged by Analyzer 0 % (0-5); Neutrophil # 4.95 X10^3/uL (2.7-7.7); Neutrophil % 66.3 % (47-70); Platelet Count 210 K/mm3 (150-450); RBC Distribution Width CV 12.9 % (11.6-14.6); RBC Distribution Width SD 43.8 fl (35.1-43.9); Red Blood Count 5.21 M/mm3 (4.6-6.2); White Blood Count 7.5 K/mm3 (4.4-11.0)
[2019-07-25 18:42] LABS: Anion Gap 7 (5-15); BUN 17 mg/dL (7-18); BUN/Creat Ratio 8.7 RATIO (10-20); Calcium,Total 8.9 mg/dL (8.5-10.1); Chloride 106 mmol/L (98-107); Creatinine, Serum 1.95 mg/dL (0.70-1.30); EST Glomerular Filtration Rate 39 mL/min (>60); Est Glom Filt Rate - Afr Amer 47 mL/min (>60); Estimated Creatinine Clearance 50.65 ml/min; Glucose 170 mg/dL (74-106); Sodium Level 139 mmol/L (136-145)
--- NOTE | 2019-07-25 19:21 | ED.DEP ---
ED Disposition - Plan for ED Patient: Instructions: CHEST PAIN, Uncertain Cause Referrals: Brennan Ty MD [Primary Care Provider] -
--- NOTE | 2019-07-25 19:24 | ED.DCSUM_ITS ---
- ER Visit Summary Date of Service: 07/25/19 Chief Complaint: Chest pain History of Present Illness: The patient is a 49 M presenting with chest pain. He states this started just prior to arrival. He states he was seated in a car when he started having squeezing in his chest. It is substernal and on the left side of his chest. He does not recall anything that makes this better or worse. It is starting to resolve. He states it is more of a fluttering in his chest than a pain or pressure. He has associated shortness of breath. He denies diaphoresis, nausea, vomiting. He initially felt lightheaded and this has improved. Denies syncope. He has a history of hypertension, diabetes, hypercholesterolemia, smoking. He has had 1 previous stent in 2017. No PE/DVT risk factors. Physical Examination: Vitals are stable. Patient is afebrile. Alert no acute distress. HEENT exam is unremarkable. Neck is supple. Lungs are clear and equal bilaterally. Heart is regular rate and rhythm. Abdomen is soft nontender nondistended. Extremities are unremarkable. Skin is warm and dry. No focal neurologic deficit. Remainder of exam is unremarkable. Emergency Department Course and Treatment: EKG is sinus rhythm rate of 86 with no acute ischemic changes. Chest x-ray shows no acute process. CBC, chemistries unremarkable except creatinine 1.95 which is near his baseline. Troponin is negative. Patient was given aspirin on arrival. Due to his multiple risk factors I recommend admission for further testing. Patient does not wish to stay in the hospital overnight. He is offered delta troponin and declines. He states he is feeling improved and will follow up with his emergency vehicle technician. He is advised of risks of leaving AGAINST MEDICAL ADVICE including [place] and . Patient understands these risks and signed out AGAINST MEDICAL ADVICE. He is advised to return to ED if he has any worsening complaints. Disposition: Left AGAINST MEDICAL ADVICE Impression: Chest pain This note was generated with [employer] dictation software. It may contain incorrect words, spelling, and punctuation that were not noted in review of the chart prior to signing ED Disposition - Plan for ED Patient: Instructions: CHEST PAIN, Uncertain Cause Referrals: Brennan Ty MD [Primary Care Provider] -
[2019-07-25 19:29] VITALS: BP 155/101; PULSE 78; RESP 16; O2SAT 97
== END 2019-07-25 19:39 | disposition left against medical advice (07) ==
LOC: ED 18:06
PROVIDERS: Emergency Provider Emergency Medicine; PCP Family Medicine
DX: R07.89 Other chest pain (principal); R06.00 Dyspnea, unspecified; R42 Dizziness and giddiness; Z53.21 Procedure and treatment not carried out due to patient leaving prior to being seen by health care provider; I10 Essential (primary) hypertension; E11.9 Type 2 diabetes mellitus without complications; E78.00 Pure hypercholesterolemia, unspecified; I25.2 Old myocardial infarction; Z95.5 Presence of coronary angioplasty implant and graft; Z79.82 Long term (current) use of aspirin; Z79.02 Long term (current) use of antithrombotics/antiplatelets; Z79.84 Long term (current) use of oral hypoglycemic drugs; Z79.899 Other long term (current) drug therapy; Z72.0 Tobacco use
CPT/HCPCS: 71045; 80048; 84484; 85025; 93005; 99285

== ENCOUNTER 2019-07-30 12:00 | Outpatient (RCR) | payer MEDICARE, SELFPAY ==
[2018-07-02 13:03] VITALS: BMI 27.0
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
== END 2019-07-30 19:00 | disposition home or self-care (01) ==
LOC: PT 12:00
PROVIDERS: PCP Family Medicine; Referring Provider Nurse Practitioner Adult Health; Visit Provider Nurse Practitioner Adult Health
DX: M54.9 Dorsalgia, unspecified (principal)
CPT/HCPCS: 97110; 97112; 97163; 97530

== ENCOUNTER → 2019-08-19 10:03 | Outpatient (CLI) | payer MEDICARE, SELFPAY ==
[2018-07-02 13:03] VITALS: BMI 27.0
[2019-07-25 17:47] VITALS: BMI 28.7
[2019-08-19 12:19] LABS: Anion Gap 7 (5-15); BUN 25 mg/dL (7-18); BUN/Creat Ratio 12.8 RATIO (10-20); Calcium,Total 9.3 mg/dL (8.5-10.1); Chloride 107 mmol/L (98-107); Cholesterol 173 mg/dL (200); Creatinine, Serum 1.95 mg/dL (0.70-1.30); EST Glomerular Filtration Rate 39 mL/min (>60); Est Glom Filt Rate - Afr Amer 47 mL/min (>60); Glucose 81 mg/dL (74-106); High Density Lipoprotein 30 mg/dL; Potassium 4.6 mmol/L (3.5-5.1); Sodium Level 140 mmol/L (136-145); Triglycerides 280 mg/dL; Very Low Density Lipoprotein 56 mg/dL (5-40)
== END ==
PROVIDERS: PCP Family Medicine; Referring Provider Family Medicine; Visit Provider Family Medicine
DX: I12.9 Hypertensive chronic kidney disease with stage 1 through stage 4 chronic kidney disease, or unspecified chronic kidney disease (principal); N18.3 Chronic kidney disease, stage 3 (moderate)
CPT/HCPCS: 36415; 80048; 80061

== ENCOUNTER 2019-09-02 21:16 | Emergency (ER) | payer MEDICARE, SELFPAY ==
[2018-07-02 13:03] VITALS: BMI 27.0
[2019-09-02 21:17] VITALS: BP 140/87; PULSE 85; RESP 18; TEMP 36.8; O2SAT 95; BMI 28.3
[2019-09-02 21:26] VITALS: BP 149/103; PULSE 78; RESP 16; O2SAT 97
--- NOTE | 2019-09-02 21:52 | EKG12_ITS ---
Test Reason : CP Blood Pressure : / mmHG Vent. Rate : 079 BPM Atrial Rate : 079 BPM P-R Int : 152 ms QRS Dur : 082 ms QT Int : 368 ms P-R-T Axes : 049 030 046 degrees QTc Int : 421 ms Normal sinus rhythm Normal ECG Confirmed by WICHO ROBERTS, HOA ([id number]), assistant production editor BANDAR CARSON ([id number]) on 09/06/2019 2:23:18 PM Referred By: ANNELISE Confirmed By:HOA SANDS MD
--- NOTE | 2019-09-02 21:53 | ED.VIS.GEN ---
History of Present Illness Chief Complaint: Chest Pain Informant: Patient Onset: Yesterday Context: Gradual Onset Timing: Waxes and wanes Current Severity: Mild Maximum Severity: Moderate Narrative: Patient present secondary to chest pain that started yesterday evening. He describes occasional sharp pain that starts in the left anterolateral ribs and rates across the right side of his chest. He also has an underlying chest pressure. Pain does not particular get worse with exertion. He does endorse shortness of breath that started today. He has not had significant cough. Patient does have prior history of STEMI with a single cardiac stent. He also has chronic renal failure. - Past Medical History (1) Coronary artery disease Status: Chronic (2) Chronic kidney disease, stage 3 Status: Chronic (3) Chronic radicular lumbar pain Status: Chronic (4) Essential hypertension Status: Chronic (5) History of coronary artery stent placement Status: Chronic Comment: PCI-HECTOR-Mid Cx 09/29/16 (6) Hyperlipidemia Status: Chronic (7) NSVT (nonsustained ventricular tachycardia) Status: Chronic (8) Spinal stenosis of lumbar region Status: Chronic Past Medical History - Allergies and Home Meds Allergies/Adverse Reactions: Allergies sulfamethoxazole [From Bactrim] Allergy (Mild, Verified 09/02/19 21:20) Rash trimethoprim [From Bactrim] Allergy (Mild, Verified 09/02/19 21:20) Rash bupropion [From Wellbutrin] Adverse Reaction (Verified 09/02/19 21:20) Elevated BP Primary Care Physician: Brennan Ty MD [Primary Care Provider] - Doctors: Dr. Suarez Prior records reviewed: Yes Surgical History: - Lives: Spouse/ Significant Other Smoking Status: Current every day smoker - Family History Maternal Family History: Family History (Last Reviewed 07/03/18 @ 10:[address] Pascual Connell MD) Grandfather CAD (coronary artery disease) Family History: Reports: No pertinent history Paternal Family History: Family History (Last Reviewed 07/03/18 @ 10:[address] Pascual Connell MD) Grandfather CAD (coronary artery disease) Family History: Reports: Hypertension Review of Systems General: Denies: Chills, Fever Eyes: Denies: Visual changes - bilaterally ENT: Denies: Bilateral ear pain Cardiovascular: Reports: Chest pain. Denies: Palpitations, Heart racing Respiratory: Reports: Dyspnea. Denies: Cough, Sputum Gastrointestinal: Denies: Abdominal pain, Nausea, Vomiting, Diarrhea Genitourinary: Denies: Dysuria Musculoskeletal: Denies: Swelling, Extremity Pain Skin: Denies: Rash Neurological: Denies: Headache Hematologic: Denies: Easy bruising, Easy bleeding Allergy: Denies: Uticaria Physical Exam Vital Signs/Narrative: Vital Signs Temp Pulse Resp BP Pulse Ox 09/02/19 21:26 78 16 149/103 H 97 09/02/19 21:17 98.3 F 85 18 140/87 H 95 Inital Vital Signs reviewed: Yes General: Well nourished, Well developed Head: Normocephalic ENT: Moist mucous membranes Neck: Supple Cardiovascular: Regular rate, Regular rhythm Respiratory: No distress, CTA bilaterally, Chest tenderness - Mild focal tenderness in the left anterior lateral ribs. Abdomen: Soft, Nontender Extremities: Nontender Skin: Normal color Neurological: Alert, Oriented x3 Psychological: Normal affect Diagnostic/Tx/Re-eval Impressions Chest X-Ray 09/02/19 21:57 IMPRESSION: No acute cardiopulmonary disease perceived. at 2209 Reported and signed by: Urbano Castillo MD Electronically Signed: Urbano Castillo MD at 22:08 EDT Tel , Service support , 09/02/19 21:57 Chest 1 View (Portable) [RAD] Stat Laboratory Results 09/02/19 09/02/19 21:25 21:25 WBC 7.0 RBC 5.04 Hgb 15.3 Hct 46.4 MCV 92.1 MCH 30.4 MCHC 33.0 RDW Std Deviation 44.3 H RDW Coeff of Ak[place] 13.2 Plt Count 207 MPV 9.4 Immature Gran % (Auto) 0.700 Neut % (Auto) 58.6 Lymph % (Auto) 29.0 [place] % (Auto) 7.7 Eos % (Auto) 3.3 Baso % (Auto) 0.7 Absolute Neuts (auto) 4.1 Absolute Lymphs (auto) 2.04 Nucleated RBC % 0 Sodium 142 Potassium 3.9 Chloride 110 H Carbon Dioxide 25.0 Anion Gap 7 BUN 17 Creatinine 1.72 H Estim Creat Clear Calc 57.42 Est GFR (MDRD) Af Amer 54 L Est GFR (MDRD) Non-Af 45 L BUN/Creatinine Ratio 9.9 L Glucose 145 H Calcium 8.9 Troponin I < 0.015 - EKG Initial EKG Interpretation: Sinus Rhythm - Sinus at 79 with no acute ischemia. - Medical Decision Making Patient had taken aspirin prior to arrival. He was given nitroglycerin here. On repeat evaluation is resting comfortably. He states the pain is almost completely resolved. Test results are discussed with him. EKG and chest x-ray are unremarkable. Troponin is less than 0.015 with 24 hours of symptoms. The patient does have known cardiac disease, however has primarily atypical symptoms at this time with sharp pain. He did crawl underneath his home last night and may have pulled a muscle or strained the left lateral rib cage where the bone and cartilage meet. At this time patient is comfortable with discharge to home. He will follow-up with his hand model, Dr. Suarez. He was encouraged to return for worsening symptoms or concerns. ED Disposition - Plan for ED Patient: Disposition: Home or Assisted Living Diagnosis: Chest pain Instructions: ED Chest Pain Atypical Unkn Cause Referrals: Pascual Suarez MD [STAFF PHYSICIAN] - As soon as possible Brennan Ty MD [Primary Care Provider] - Keep Huong appointment
--- NOTE | 2019-09-02 21:57 | RAD_ITS ---
HISTORY: CHEST PAIN x1 DAY, SOBHX OF HTN AND HI EXAM: XR Chest 1 View: COMPARISON: July 25, 2019 FINDINGS: # of images incl. paperwork: 1 Linear airspace disease within the left lower lobe is more defined than the previous study but similar in size and position, likely representing scar Lungs are clear. Heart is not enlarged. No acute osseous pathology perceived. Pulmonary vascularity is distinct. No effusions. RAD/Chest 1 View (Portable) IMPRESSION: No acute cardiopulmonary disease perceived. at 2209 Reported and signed by: Urbano Castillo MD Electronically Signed: Urbano Castillo MD at 22:08 EDT Tel , Service support ,
[2019-09-02 22:03] VITALS: BP 139/93; PULSE 79
[2019-09-02 22:03] LABS: Absolute Lymphocyte Count 2.04 X10^3/uL (0.83-4.51); Absolute Neutrophil Count 4.1 X10^3/uL (2.0-7.7); Basophil# 0.05 X10^3/uL; Basophil% 0.7 % (0-1); Eosinophil# 0.23 X10^3/uL; Eosinophils% 3.3 % (0-5); Hematocrit 46.4 % (40-54); Hemoglobin 15.3 g/dL (13.0-16.5); Lymphocyte # 2.04 X10^3/ul (4.0); Mean Corpuscular Hgb 30.4 pg (27.0-32.0); Mean Corpuscular Volume 92.1 fL (80-94); Mean Platelet Vol. 9.4 fl (6.2-12.0); Monocyte# 0.54 X10^3/uL; Monocyte% 7.7 % (0-10); NRBC Flagged by Analyzer 0 % (0-5); Neutrophil # 4.13 X10^3/uL (2.7-7.7); Neutrophil % 58.6 % (47-70); Platelet Count 207 K/mm3 (150-450); RBC Distribution Width CV 13.2 % (11.6-14.6); RBC Distribution Width SD 44.3 fl (35.1-43.9); Red Blood Count 5.04 M/mm3 (4.6-6.2)
[2019-09-02] MEDS: Nitroglycerin SL (ED/IMG/CATH) 0.4 MG TABLET SUBLINGUAL ×3 (22:03→22:16)
[2019-09-02] MEDS: 0.9% Normal Saline 1,000 ML 150 ML IV (22:03)
[2019-09-02 22:07] VITALS: BP 153/109; PULSE 85
[2019-09-02 22:16] VITALS: BP 141/105; PULSE 78
[2019-09-02 22:23] LABS: Anion Gap 7 (5-15); BUN 17 mg/dL (7-18); BUN/Creat Ratio 9.9 RATIO (10-20); Calcium,Total 8.9 mg/dL (8.5-10.1); Chloride 110 mmol/L (98-107); Creatinine, Serum 1.72 mg/dL (0.70-1.30); EST Glomerular Filtration Rate 45 mL/min (>60); Est Glom Filt Rate - Afr Amer 54 mL/min (>60); Estimated Creatinine Clearance 57.42 ml/min; Glucose 145 mg/dL (74-106); Potassium 3.9 mmol/L (3.5-5.1); Sodium Level 142 mmol/L (136-145)
[2019-09-02 22:51] VITALS: BP 143/103; PULSE 72; RESP 18; O2SAT 95
== END 2019-09-02 22:56 | disposition home or self-care (01) ==
PROVIDERS: Emergency Provider Emergency Medicine; PCP Family Medicine
DX: R07.89 Other chest pain (principal); I25.10 Atherosclerotic heart disease of native coronary artery without angina pectoris; N18.3 Chronic kidney disease, stage 3 (moderate); I12.9 Hypertensive chronic kidney disease with stage 1 through stage 4 chronic kidney disease, or unspecified chronic kidney disease; E78.5 Hyperlipidemia, unspecified; I25.2 Old myocardial infarction; M48.061 Spinal stenosis, lumbar region without neurogenic claudication; F17.200 Nicotine dependence, unspecified, uncomplicated; Z95.5 Presence of coronary angioplasty implant and graft; Z88.2 Allergy status to sulfonamides; Z82.49 Family history of ischemic heart disease and other diseases of the circulatory system; Z88.1 Allergy status to other antibiotic agents
CPT/HCPCS: 71045; 80048; 84484; 85025; 93005; 96360; 99285; J7030; A4216

== ENCOUNTER → 2019-10-01 12:49 | Outpatient (CLI) | payer MEDICARE, SELFPAY ==
[2018-07-02 13:03] VITALS: BMI 27.0
[2019-09-14 09:31] VITALS: BMI 28.2
--- NOTE | 2019-10-01 12:50 | ECHOD_ITS ---
Reason For Study: chest pain Procedure This was a 2D Doppler, Color Flow transthoracic echocardiogram. Exam performed in department. Left Ventricle Normal size and thickness. The estimated ejection fraction is 65 %. Stage 1 diastolic dysfunction. No regional wall motion abnormalities noted. Right Ventricle Normal right ventricle. Normal systolic function. Atria Normal left atrium. Normal right atrium. Normal atrial septum. Mitral Valve Mild focal mitral valve thickening. Trivial mitral valve insufficiency. Tricuspid Valve Normal tricuspid valve. Trivial tricuspid valve insufficiency. Right ventricular systolic pressure estimated to be 23 mmHg. Aortic Valve Normal aortic valve. Trisinus/trileaflet aortic valve. Pulmonic Valve Normal pulmonic valve. Great Vessels Normal aortic root. Normal arch. Normal inferior vena cava. Inferior vena cava collapse with sniff. Pericardium/Pleural No pericardial effusion. MMode/2D Measurements & Calculations LVIDd: 4.6 cm IVSd: 0.99 cm Ao root diam: 2.7 cm LVIDs: 3.3 cm LVPWd: 0.96 cm RVDd: 3.2 cm FS: 28.1 % LAV(MOD-bp): 44.9 ml LA A4 area: 16.2 cm2 LA dimension(2D): 3.6 cm LAV(MOD-bp) Indexed: 20.4 ml/m2 LAV(MOD-sp2): 46.7 ml LAV(MOD-sp4): 38.4 ml RA A4 area: 14.0 cm2 Doppler Measurements & Calculations MV E max lewis: 64.5 cm/sec Lat Peak E' Lewis: 10.2 cm/sec Med Peak E' Lewis: 5.8 cm/sec MV A max lewis: 84.1 cm/sec E/E' lat: 6.4 E/E' med: 11.1 MV E/A: 0.77 Ao V2 max: 125.1 cm/sec LV V1 max: 108.0 cm/sec PA V2 max: 99.6 cm/sec Ao max P.3 mmHg LV V1 max P.7 mmHg Ao V2 mean: 89.8 cm/sec LV V1 mean P.5 mmHg Ao mean P.5 mmHg LV V1 mean: 76.0 cm/sec Ao V2 VTI: 23.8 cm LV V1 VTI: 21.9 cm TR max lewis: 214.0 cm/sec TR max P.3 mmHg Interpretation Summary The estimated ejection fraction is 65 %. Stage 1 diastolic dysfunction. Trivial mitral valve insufficiency. Trivial tricuspid valve insufficiency. Right ventricular systolic pressure estimated to be 23 mmHg. Compared to echo report dated 09/01/2017, no appreciable changes noted. Ordering Physician: Pascual Suarez Referring Physician: Brennan Ty Performed By: Cassandra Victoria RDCS, RVT
== END ==
PROVIDERS: PCP Family Medicine; Referring Provider Internal Medicine Cardiovascular Disease; Visit Provider Internal Medicine Cardiovascular Disease
DX: I25.10 Atherosclerotic heart disease of native coronary artery without angina pectoris (principal); R07.9 Chest pain, unspecified
CPT/HCPCS: 93306

== ENCOUNTER → 2019-10-06 12:52 | Outpatient (CLI) | payer MEDICARE, SELFPAY ==
[2018-07-02 13:03] VITALS: BMI 27.0
[2019-09-14 09:31] VITALS: BMI 28.2
--- NOTE | 2019-10-06 12:53 | STEWCON_ITS ---
Reason For Study: CHEST PAIN Stress Results Protocol: Rick Protocol WITH DEFINITY Maximum Predicted HR: 169 bpm Target HR: 144 bpm % Maximum Predicted HR: 75 % DurationHeart Rate Stage (mm:ss) (bpm) BP Comment BASELINE 71 136/963 CC TOTAL DEFINITY FOR TEST STAGE 1 3:00 96 140/62 STAGE 2 3:00 104 128/64 STAGE 3 3:00 116 132/70 STAGE 4 1:00 126 / SOB AND LEG DISCOMFORT RECOVERY 93 130/82 Stress Duration: 10:00 mm:ss Maximum Stress HR: 126 bpm Baseline Echocardiogram Findings The estimated ejection fraction is 65 %. Stress Echo Wall motion Data Resting WM Intermediate WM Stress WM Resting Wall Motion Wall Motion Stress No regional wall motion No regional wall motion abnormalities noted. abnormalities noted. EKG Data The baseline ECG displays normal sinus rhythm. The patient exercised according to the regular Rick protocol for a total duration of 10:01. The maximum heart rate attained was 127 beats per minute. This was 75% of maximum predicted heart rate. The patient exercised into stage 4 of the Rick protocol. During stress, there were no ST or T wave changes noted to suggest ischemia. At peak exercise, upsloping ST changes only were noted, which did not meet the criteria for ischemia. Interpretation Summary The estimated ejection fraction is 65 %. Normal, adequate, treadmill echocardiogram. Negative for ischemia by EKG and echocardiographic criteria. No anginal symptoms noted. No arrhythmias noted. Test terminated due to dyspnea. Appropriate blood pressure response to exercise. Final LVEF is 75%. Decrease sensitivity due to poor echo windows requiring Definity agent. No complications. The study was technically difficult. Contrast injection was performed. Ordering Physician: Pascual Suarez Referring Physician: Pascual Suarez Performed By: Vania Reyes RDCS
== END ==
PROVIDERS: PCP Family Medicine; Referring Provider Internal Medicine Cardiovascular Disease; Visit Provider Internal Medicine Cardiovascular Disease
DX: R07.9 Chest pain, unspecified (principal); I25.10 Atherosclerotic heart disease of native coronary artery without angina pectoris; I10 Essential (primary) hypertension; E78.5 Hyperlipidemia, unspecified
CPT/HCPCS: 93017; 93350; Q9957; A4216; C8928

== ENCOUNTER 2019-10-23 21:52 | Inpatient (IN) | payer MEDICARE, SELFPAY ==
[2018-07-02 13:03] VITALS: BMI 27.0
[2019-09-14 09:31] VITALS: BMI 28.2
[2019-10-23 21:54] VITALS: BP 149/96; PULSE 82; RESP 15; TEMP 37.1; O2SAT 97; BMI 24.1
--- NOTE | 2019-10-23 22:06 | EKG12_ITS ---
Test Reason : REPEAT Blood Pressure : / mmHG Vent. Rate : 065 BPM Atrial Rate : 065 BPM P-R Int : 156 ms QRS Dur : 084 ms QT Int : 394 ms P-R-T Axes : 013 042 058 degrees QTc Int : 409 ms Normal sinus rhythm Normal ECG Confirmed by MARGIE DE LEON MD ([id number]), editor publications EZEQUIEL LUDWIG ([id number]) on 10/26/2019 8:58:41 AM Referred By: DAVID Confirmed By:MARGIE DE LEON MD
--- NOTE | 2019-10-23 22:07 | ED.DCSUM_ITS ---
History of Present Illness Chief Complaint: Chest Pain Informant: Patient Narrative: Stated he is having left-sided intermittent sharp chest pain with radiation across the chest into the right shoulder and into his jaw. He has had this multiple times in the past with angina. He had one cardiac stent placed in [address] Suarez. He had a negative stress test a week ago. He denies any shortness of breath. No recent trips. Make sure he is not having a heart attack. He also stated his right lower back is sore. He gets this frequently. He has a history of his chronic kidney disease and wants to make sure he does not have a UTI. He denies any urinary symptoms. Current severity is mild. It lasts for seconds at a time. He has had multiple chest pain visits in the past as well. Worsened by nothing. Takes aspirin daily. - Past Medical History (1) Teogc-oj-mzsvuzm kidney injury Status: Acute (2) Chest pain, unspecified Status: Acute (3) Atherosclerosis of coronary artery of [place] heart without angina pectoris Status: Chronic Comment: PCI-HECTOR-Mid Cx 09/29/16 (4) Chronic kidney disease, stage 3 Status: Chronic (5) Chronic radicular lumbar pain Status: Chronic (6) Coronary artery disease Status: Chronic (7) Diabetes mellitus type II, controlled Status: Chronic (8) Essential hypertension Status: Chronic (9) History of coronary artery stent placement Status: Chronic Comment: PCI-HECTOR-Mid Cx 09/29/16 (10) History of left heart catheterization Status: Chronic Comment: 09/29/[address] Suarez, 12/19/[address] Louis; both at [facility] (11) Hyperlipidemia Status: Chronic (12) NSVT (nonsustained ventricular tachycardia) Status: Chronic (13) Neurogenic bladder Status: Chronic (14) Osteoarthritis Status: Chronic (15) STEMI (ST elevation myocardial infarction) Status: Chronic (16) Sciatica Status: Chronic (17) Sleep-disordered breathing Status: Chronic (18) Smoking addiction Status: Chronic (19) Spinal stenosis of lumbar region Status: Chronic (20) Syncope and collapse Status: Resolved Past Medical History - Allergies and Home Meds Allergies/Adverse Reactions: Allergies sulfamethoxazole [From Bactrim] Allergy (Mild, Verified 09/13/19 17:11) Rash trimethoprim [From Bactrim] Allergy (Mild, Verified 09/13/19 17:11) Rash bupropion [From Wellbutrin] Adverse Reaction (Verified 09/13/19 17:11) Elevated BP Prior records reviewed: Yes Past Medical History: - - See problem list Surgical History: - Lives: With Family Smoking Status: Current every day smoker Alcohol: None Drugs: None - Family History Maternal Family History: Family History (Last Reviewed 09/13/19 @ 17:11 by Elaina Albert) Grandfather CAD (coronary artery disease) Family History: Reports: No pertinent history Paternal Family History: Family History (Last Reviewed 09/13/19 @ 17:11 by Elaina Albert) Grandfather CAD (coronary artery disease) Family History: Reports: Hypertension Review of Systems General: Denies: Chills, Fever, Sweats Eyes: Denies: Visual changes - bilaterally, Diplopia ENT: Denies: Rhinorrhea, Sore throat Cardiovascular: Reports: Chest pain. Denies: Palpitations Respiratory: Denies: Dyspnea, Cough, Dyspnea on exertion Gastrointestinal: Denies: Abdominal pain, Nausea, Vomiting, Diarrhea, Melena, Hematochezia Genitourinary: Denies: Dysuria, Hematuria, Frequency Musculoskeletal: Reports: Back pain. Denies: Extremity Pain Skin: Denies: Rash, Wounds Neurological: Denies: Headache, Weakness, Numbness Physical Exam Vital Signs/Narrative: Vital Signs Temp Pulse Resp BP Pulse Ox 10/23/19 21:54 98.8 F 82 15 149/96 H 97 General: Well nourished, Well developed, No Acute Distress Head: Normocephalic, Atraumatic Eyes: Perrl, EOMI ENT: Moist mucous membranes, No rhinorrhea Neck: Supple, Nontender Cardiovascular: Regular rate, Regular rhythm, No murmurs Respiratory: No distress, CTA bilaterally, Chest nontender Abdomen: Soft, Nontender, Nondistended, Normal bowel sounds Back: Nontender, Normal Inspection Extremities: Nontender, No edema Skin: Normal color, No rash Neurological: Alert, Oriented x3, Cranial nerves II-XII grossly intact, Normal Strength, Normal Sensation Psychological: Normal affect, Normal Mood Diagnostic/Tx/Re-eval - Medical Decision Making EKG obtained shows normal sinus rhythm at a rate of 76. No ischemia or arrhythmia. Lab work and chest x-ray obtained. Patient already took aspirin. Work shows chronic renal insufficiency with a creatinine of 2.1. Troponin negative. Chest x-ray normal. CBC shows no acute abnormalities. Urinalysis does show 1+ bacteria and 5-10 whites. Urine culture sent. She only took a baby aspirin however. Given full-strength aspirin. Had 30 seconds of chest discomfort with ST segment elevation on the quality assurance monitor chassis. Repeat EKG shows normal sinus rhythm after the pain went away. Discussed with Dr. Bucio with cardiology. He recommends admission. The patient was started on a nitroglycerin drip as well as heparin drip. I suspect that he is having intermittent ischemia that we caught on telemetry. - Critical Care Time Critical care time (excluding procedures): 30-74 minutes ED Disposition - Plan for ED Patient: Disposition: Acute Care Hospital [facility] Diagnosis: Urinary tract infection, Unstable angina
[2019-10-23 22:13] LABS: Absolute Lymphocyte Count 2.36 X10^3/uL (0.83-4.51); Absolute Neutrophil Count 4.6 X10^3/uL (2.0-7.7); Basophil# 0.05 X10^3/uL; Basophil% 0.6 % (0-1); Eosinophil# 0.24 X10^3/uL; Hematocrit 47.5 % (40-54); Hemoglobin 15.4 g/dL (13.0-16.5); Lymphocyte # 2.36 X10^3/ul (4.0); Lymphocyte % 29.7 % (19-41); Mean Corp Hgb Conc 32.4 g/dL (32-36); Mean Corpuscular Hgb 30.4 pg (27.0-32.0); Mean Corpuscular Volume 93.7 fL (80-94); Mean Platelet Vol. 9.3 fl (6.2-12.0); Monocyte% 7.6 % (0-10); NRBC Flagged by Analyzer 0 % (0-5); Neutrophil # 4.64 X10^3/uL (2.7-7.7); Neutrophil % 58.5 % (47-70); Platelet Count 223 K/mm3 (150-450); RBC Distribution Width CV 13.5 % (11.6-14.6); RBC Distribution Width SD 45.8 fl (35.1-43.9); Red Blood Count 5.07 M/mm3 (4.6-6.2); White Blood Count 7.9 K/mm3 (4.4-11.0)
[2019-10-23 22:31] LABS: Anion Gap 8 (5-15); BUN 25 mg/dL (7-18); BUN/Creat Ratio 11.7 RATIO (10-20); Calcium,Total 8.8 mg/dL (8.5-10.1); Chloride 107 mmol/L (98-107); Creatinine, Serum 2.14 mg/dL (0.70-1.30); EST Glomerular Filtration Rate 35 mL/min (>60); Est Glom Filt Rate - Afr Amer 42 mL/min (>60); Estimated Creatinine Clearance 46.15 ml/min; Glucose 216 mg/dL (74-106); Potassium 3.6 mmol/L (3.5-5.1); Sodium Level 141 mmol/L (136-145)
[2019-10-23 22:31] LABS: Mucous, Urine 0 SEEN /hpf (<or=2+); Squamous Epithelial Cells - UA 0 SEEN /hpf (0-5)
--- NOTE | 2019-10-23 22:32 | RAD_ITS ---
STUDY: X-RAY CHEST REASON FOR EXAM: Male, 49 years old. Pt with CP radiating to jaw and rt arm for the past 2 days. Also low back pain. TECHNIQUE: 2 views COMPARISON: Prior chest radiograph September 02, 2019 FINDINGS: The lungs are clear and expanded. There is no demonstrated pleural abnormality. Normal size heart. Normal mediastinum and jayde. Normal visualized pulmonary arteries. There is atherosclerotic calcification of the aortic arch . Normal visualized thoracic spine. Normal visualized ribs, clavicles, and shoulders. There is no demonstrated abnormality of the visualized soft tissue structures of the upper abdomen. RAD/Chest PA and Lateral IMPRESSION: No acute cardiopulmonary findings. Negative for consolidation, atelectasis, pleural effusion or cardiomegaly. Negative for pulmonary venous congestion. Mild atherosclerotic changes of the aorta. Electronically Signed: Ana Steward MD at 23:08 EDT , Service support ,
[2019-10-23 22:33] LABS: Color, Urine Straw (Yellow); Glucose, Dipstick Normal (Normal); Ketone-Dipstick Negative (Negative); Leukocyte Esterase-Dipstick 25 /ul (Negative); Nitrite-Dipstick Negative (Negative); Occult Blood-Urine 25 /ul (Negative); Protein-Dipstick 100 mg/dl (Negative); Urine Bilirubin Dipstick Negative (Negative); Urine Clarity Clear (Clear); Urine Urobilinogen Normal (Normal); Urine pH 6.5 (5.0 - 8.0)
[2019-10-23 22:51] LABS: Bacteria 1+ /hpf (None Seen); Red Blood Cells-Urine 0-5 SEEN /hpf (0-5); White Blood Cells 5-10 SEEN /hpf (0-5)
[2019-10-23] MEDS: Acetaminophen 500 MG Tablet 1000 MG PO (23:06)
[2019-10-23 23:13] VITALS: BP 155/90; PULSE 75; RESP 15; O2SAT 97
[2019-10-23 23:15] VITALS: BP 155/90; PULSE 77; RESP 15; O2SAT 97
--- NOTE | 2019-10-23 23:20 | EKG12_ITS ---
Test Reason : CP Blood Pressure : / mmHG Vent. Rate : 076 BPM Atrial Rate : 076 BPM P-R Int : 154 ms QRS Dur : 086 ms QT Int : 382 ms P-R-T Axes : 026 058 039 degrees QTc Int : 429 ms Normal sinus rhythm Normal ECG Confirmed by MARGIE DE LEON MD ([id number]), brands editor EZEQUIEL LUDWIG ([id number]) on 10/26/2019 8:58:53 AM Referred By: DAVID Confirmed By:MARGIE DE LEON MD
[2019-10-23 23:22] VITALS: BP 160/93; PULSE 73; RESP 17; O2SAT 97
[2019-10-24] VITALS (22 sets, daily range): BP systolic 125–160; BP diastolic 68–114; PULSE 59–85; RESP 11–21; TEMP 36.4–36.8; O2SAT 92–98; BMI 28.2
[2019-10-24 00:02] LABS: Partial Thromboplast Time 30.9 Seconds (24.1-36.2)
[2019-10-24] MEDS: Ceftriaxone 1 GM/50 ML BAG IV ×2 (00:03→21:39)
[2019-10-24] MEDS: Aspirin 325 MG Tablet PO (00:06)
[2019-10-24] MEDS: HEPARIN/D5w 25,000 UNITS 25,000 UNITS/250 ML IV.SOLN. 12 UNITS IV (00:34)
[2019-10-24] MEDS: Heparin Injection (Vial) 5,000 UNIT/ML VIAL 6000 UNIT IV (00:35)
[2019-10-24] MEDS: Nitroglycerin Infusion 250 ML 3 MG CONT INF (00:41)
--- NOTE | 2019-10-24 02:33 | EKG12_ITS ---
Test Reason : CP Blood Pressure : / mmHG Vent. Rate : 070 BPM Atrial Rate : 070 BPM P-R Int : 154 ms QRS Dur : 086 ms QT Int : 380 ms P-R-T Axes : 020 061 044 degrees QTc Int : 410 ms Normal sinus rhythm Normal ECG When compared with ECG of 24-OCT-2019 09:04, MANUAL COMPARISON REQUIRED, DATA IS UNCONFIRMED Confirmed by MOISES ROBERTS, MARGIE ([id number]), assignment editor EZEQUILE LUDWIG ([id number]) on 10/26/2019 11:05:48 AM Referred By: NICO Confirmed By:MARGIE DE LEON MD
[2019-10-24 03:03] LABS: Absolute Lymphocyte Count 2.97 X10^3/uL (0.83-4.51); Absolute Neutrophil Count 4.4 X10^3/uL (2.0-7.7); Basophil# 0.04 X10^3/uL; Basophil% 0.5 % (0-1); Eosinophil# 0.29 X10^3/uL; Eosinophils% 3.4 % (0-5); Hematocrit 45.2 % (40-54); Hemoglobin 14.7 g/dL (13.0-16.5); Lymphocyte # 2.97 X10^3/ul (4.0); Lymphocyte % 34.9 % (19-41); Mean Corp Hgb Conc 32.5 g/dL (32-36); Mean Corpuscular Hgb 30.5 pg (27.0-32.0); Mean Corpuscular Volume 93.8 fL (80-94); Mean Platelet Vol. 9.3 fl (6.2-12.0); Monocyte# 0.73 X10^3/uL; Monocyte% 8.6 % (0-10); NRBC Flagged by Analyzer 0 % (0-5); Neutrophil # 4.43 X10^3/uL (2.7-7.7); Platelet Count 205 K/mm3 (150-450); RBC Distribution Width CV 13.5 % (11.6-14.6); RBC Distribution Width SD 45.8 fl (35.1-43.9); Red Blood Count 4.82 M/mm3 (4.6-6.2); White Blood Count 8.5 K/mm3 (4.4-11.0)
--- NOTE | 2019-10-24 03:09 | NURSING ---
Pt unsure of date of last PNA shot.
--- NOTE | 2019-10-24 04:50 | NURSING ---
Unable to document 03:57 SD vital in full d/t lost data on central monitor and SD monitor.
--- NOTE | 2019-10-24 05:10 | HP.PCM_ITS ---
Problem List (1) Unstable angina Status: Acute (2) Urinary tract infection Status: Inactive (3) Diabetes mellitus type II, controlled Status: Chronic (4) Coronary artery disease Status: Chronic (5) Essential hypertension Status: Chronic (6) History of left heart catheterization Status: Chronic Comment: 09/29/[address] Suarez, 12/19/[address] Louis; both at [facility] (7) [id number] kidney injury Status: Inactive (8) Neurogenic bladder Status: Chronic (9) Chest pain, unspecified Status: Acute (10) Syncope and collapse Status: Acute (11) Chronic kidney disease, stage 3 Status: Chronic (12) History of coronary artery stent placement Status: Chronic Comment: PCI-HECTOR-Mid Cx 09/29/16 (13) Atherosclerosis of coronary artery of [place] heart without angina pectoris Status: Chronic Comment: PCI-HECTOR-Mid Cx 09/29/16 (14) Sleep-disordered breathing Status: Chronic (15) NSVT (nonsustained ventricular tachycardia) Status: Chronic (16) Smoking addiction Status: Chronic (17) Hyperlipidemia Status: Chronic (18) Osteoarthritis Status: Chronic (19) Spinal stenosis of lumbar region Status: Chronic (20) Chronic radicular lumbar pain Status: Chronic (21) STEMI (ST elevation myocardial infarction) Status: Chronic (22) Sciatica Status: Chronic History of Present Illness Date of Admission: 10/24/19 Chief Complaint: Chest pain The patient is a 49 year old M with a significant history of CAD status post stent; CKD stage III; diabetes mellitus; neurogenic bladder; chronic pain and tobacco abuse who presents emergency department with episodic left-sided chest pain that radiates across his right chest and to his right shoulder. Also the pain goes into his teeth. Associated with symptoms is nausea. The pain lasted about 5 minutes. The pain has been going on for the past 5 to 6 days. Because the pain is persistent patient came to emergency department. Stress test about a week ago was unremarkable. Patient denies any aggravating factors. Patient thinks that aspirin improves the pain. He reports diaphoresis. He denies shortness of breath. EKG at the emergency department shows sinus rhythm. However her telemetry emergency department doctor reports about 2 episodes where patient had ST elevation. Emergency department doctor reports discussing the case with cdl b driver on- call who recommended nitroglycerin drip and heparin drip. Past Medical History Past Medical History (Chronic Problems): Chronic Problems (Last Updated 09/14/19 @ 09:35 by Elaina Albert) Diabetes mellitus type II, controlled (Chronic) Coronary artery disease (Chronic) Essential hypertension (Chronic) History of left heart catheterization (Chronic) 09/29/[address] Suarez, 12/19/[address] Louis; both at [facility] Neurogenic bladder (Chronic) Chronic kidney disease, stage 3 (Chronic) History of coronary artery stent placement (Chronic 09/29/16) PCI-HECTOR-Mid Cx 09/29/16 Atherosclerosis of coronary artery of [place] heart without angina pectoris (Chronic) PCI-HECTOR-Mid Cx 09/29/16 Sleep-disordered breathing (Chronic) NSVT (nonsustained ventricular tachycardia) (Chronic) Smoking addiction (Chronic) Hyperlipidemia (Chronic) Osteoarthritis (Chronic) Spinal stenosis of lumbar region (Chronic) Chronic radicular lumbar pain (Chronic) STEMI (ST elevation myocardial infarction) (Chronic) Sciatica (Chronic) Medical History: Medical History (Last Reviewed 10/24/19 @ 05:[address] Manolo Thao MD) Diabetes mellitus type II, controlled (Chronic) E11.9 Essential hypertension (Chronic) I10 [place] kidney injury (Inactive) N17.9, N18.9 Neurogenic bladder (Chronic) N31.9 Chest pain, unspecified (Acute) R07.9 Syncope and collapse (Acute) R55 Chronic kidney disease, stage 3 (Chronic) N18.3 Atherosclerosis of coronary artery of [place] heart without angina pectoris (Chronic) I25.10 PCI-HECTOR-Mid Cx 09/29/16 Sleep-disordered breathing (Chronic) G47.30 NSVT (nonsustained ventricular tachycardia) (Chronic) I47.2 Smoking addiction (Chronic) F17.200 Hyperlipidemia (Chronic) E78.5 Osteoarthritis (Chronic) M19.90 Spinal stenosis of lumbar region (Chronic) M48.06 Chronic radicular lumbar pain (Chronic) M54.16, G89.29 STEMI (ST elevation myocardial infarction) (Chronic) Sciatica (Chronic) M54.30 Allergies sulfamethoxazole [From Bactrim] Allergy (Mild, Verified 09/13/19 17:11) Rash trimethoprim [From Bactrim] Allergy (Mild, Verified 09/13/19 17:11) Rash bupropion [From Wellbutrin] Adverse Reaction (Verified 09/13/19 17:11) Elevated BP Home Medications: Ambulatory Orders Medication Instructions Recorded Escitalopram Oxalate [Lexapro] 5 mg PO DAILY 04/21/15 Fish Oil/Dha/Epa [Fish Oil 1,200 1 ea PO DAILY 04/21/15 mg Fish Oil] Allopurinol [Zyloprim] 100 mg PO DAILY 07/25/15 Aspirin E.C. [Ecotrin] 81 mg PO DAILY@0800 05/01/18 Atorvastatin Calcium [Lipitor] 80 mg PO QHS 05/01/18 B Complex W-C No.20/Folic Acid 1 mg PO DAILY 05/01/18 [Nephrocaps Softgel] Gabapentin [Neurontin] 600 mg PO BID 05/01/18 Hydrocodone/Acetaminophen 1 tab PO Q4H PRN PRN 05/01/18 [Hydrocodone-Acetamin 5-325 mg] Trimethoprim [Trimpex] 100 mg PO QODAY 05/01/18 Cholecalciferol (Vitamin D3) 5,000 unit PO DAILY 05/07/19 [Vitamin D3] Glimepiride 1 mg PO DAILY 06/05/19 furosemide 20 mg tablet 20 mg PO DAILY #30 tab 09/14/19 clopidogrel 75 mg tablet 75 mg PO DAILY #90 tab 09/30/19 carvedilol 25 mg tablet 25 mg PO BID #180 tab 10/01/19 isosorbide mononitrate 60 mg 60 mg PO DAILY #30 tab 10/01/19 tablet,extended release 24 hr Surgical History: Surgical History (Last Reviewed 10/24/19 @ 05:[address] Manolo Thao MD) History of left heart catheterization (Chronic) Z98.890 09/29/[address] Suarez, 12/19/[address] Louis; both at [facility] History of coronary artery stent placement (Chronic) Onset Date: 09/29/16 Z95.5 PCI-HECTOR-Mid Cx 09/29/16 History of renal stent Z98.890 ileoconduit placement percutaneous nephrostomy urethral stricture surgery urinary tract diverson Surgical History: - Psychiatric History: No pertinent psych hx Lives: With Family Smoking Status: Current every day smoker Alcohol: None Drugs: None - *Family History Maternal Family History: Family History (Last Reviewed 10/24/19 @ 05:[address] Manolo Thao MD) Grandfather CAD (coronary artery disease) History Items: No pertinent history Paternal Family History: Family History (Last Reviewed 10/24/19 @ 05:[address] Manolo Thao MD) Grandfather CAD (coronary artery disease) History Items: Hypertension Review of Systems Constitutional: Denies: Chills, Fever, Weight Change HEENT: Denies: Head Aches, Sinus Congestion, Sinus Drainage Cardiovascular: Denies: Chest Pain, Palpitations Respiratory: Reports: Cough. Denies: Shortness of breath at rest, Sputum production Gastrointestinal: Reports: Nausea. Denies: Vomiting Genitourinary: Denies: Dysuria Musculoskeletal: Denies: Joint Pain, Joint Tenderness Skin: Denies: Rash, Wounds Neurological: Denies: Numbness, Tingling, Focal weakness Psychiatric: Denies: Anxiety, Depression, Homicidal Ideations, Suicidal Ideations Hematologic/ Lymphatic: Denies: Easy Bruising, Easy Bleeding VTE Information - Inpt Only VTE Present on Admission: No VTE Mechan Device Prophylaxis: None VTE Pharm Prophylaxis ordered?: No Reason prophylaxis not ordered:: Treatment Not Indicated - On heparin drip for unstable angina. Patient Problems: Active and Suspected Problems (Last Updated 09/14/19 @ 09:35 by Elaina Albert) Unstable angina (Acute) - Physical Exam Vitals/I&O's: Vital Signs Temp Pulse Resp BP Pulse Ox 97.8 F 62 16 142/93 H 93 10/24/19 02:57 10/24/19 04:23 10/24/19 04:23 10/24/19 04:23 10/24/19 04:23 Oxygen Delivery Method Room Air Weight: 97.1 kg Body Mass Index (BMI) 28.2 Finger Stick Blood Glucose 186 Intake and Output for Last 24 Hours 10/22/19 10/23/19 10/24/19 23:59 23:59 23:59 Intake Total 61.1 / 61.1 Balance 61.1 / 61.1 General: Alert, Oriented x3, Cooperative HEENT: Atraumatic, PERRLA, EOMI, Normocephalic Neck: Supple, No JVD, Negative Carotid Bruits Lungs: Clear to auscultation, Normal air movement Cardiovascular: Regular rate, No murmurs Abdomen: Bowel Sounds Present, Soft, Non Tender Extremities: No edema, Capillary Refill Less than 3 Seconds Skin: No rashes, No breakdown Musculoskeletal: No Tenderness to Palpation of Joints or Extremities Neurological: Cranial nerves II-XII grossly intact Psych/Mental Status: Normal Affect, Appropriate Laboratory Results 10/23/19 22:05: WBC 7.9, RBC 5.07, Hgb 15.4, Hct 47.5, MCV 93.7, MCH 30.4, MCHC 32.4, RDW Std Deviation 45.8 H, RDW Coeff of [place] 13.5, Plt Count 223, MPV 9.3, Immature Gran % (Auto) 0.600, Neut % (Auto) 58.5, Lymph % (Auto) 29.7, [place] % (Auto) 7.6, Eos % (Auto) 3.0, Baso % (Auto) 0.6, Absolute Neuts (auto) 4.6, Absolute Lymphs (auto) 2.36, Nucleated RBC % 0 10/23/19 22:05: Sodium 141, Potassium 3.6, Chloride 107, Carbon Dioxide 26.0, Anion Gap 8, BUN 25 H, Creatinine 2.14 H, Estim Creat Clear Calc 46.15, Est GFR (MDRD) Af Amer 42 L, Est GFR (MDRD) Non-Af 35 L, BUN/Creatinine Ratio 11.7, Glucose 216 H, Calcium 8.8, Troponin I < 0.015 10/23/19 22:05: APTT 30.9 10/23/19 22:26: Urine Color Straw, Urine Clarity Clear, Urine pH 6.5, Ur Specific [place] 1.010, Urine Protein 100 H, Urine Glucose (UA) Normal, Urine Ketones Negative, Urine Occult Blood 25 H, Urine Nitrite Negative, Urine Bilirubin Negative, Urine Urobilinogen Normal, Ur Leukocyte Esterase 25 H, Urine RBC 0-5 SEEN, Urine WBC 5-10 SEEN, Ur Squamous Epith Cells 0 SEEN, Urine Bacteria 1+, Urine Mucus 0 SEEN 10/24/19 02:47: WBC 8.5, RBC 4.82, Hgb 14.7, Hct 45.2, MCV 93.8, MCH 30.5, MCHC 32.5, RDW Std Deviation 45.8 H, RDW Coeff of [place] 13.5, Plt Count 205, MPV 9.3, Immature Gran % (Auto) 0.600, Neut % (Auto) 52.0, Lymph % (Auto) 34.9, [place] % (Auto) 8.6, Eos % (Auto) 3.4, Baso % (Auto) 0.5, Absolute Neuts (auto) 4.4, Absolute Lymphs (auto) 2.97, Nucleated RBC % 0 10/24/19 02:47: Troponin I < 0.015 10/24/19 02:47: Troponin I Pending Current Medications Acetaminophen (Tylenol) 650 mg PO Q6H PRN PRN PRN Reason: Pain Score 1-10/Temp > 100.7 F Hydrocodone Bitart/Acetaminophen ([place] 5mg-325mg) 1 tablet PO Q4H PRN PRN PRN Reason: Pain Score 1-10/10 Allopurinol (Zyloprim) 100 mg PO DAILY [facility] Aspirin (Ecotrin) 81 mg PO DAILY@0800 [facility] Atorvastatin Calcium (Lipitor) 80 mg PO QHS [facility] Carvedilol (Coreg) 25 mg PO BID [facility] Cholecalciferol (Vitamin D (25mcg)) 5,000 unit PO DAILY [facility] Clopidogrel Bisulfate (Plavix) 75 mg PO DAILY [facility] Dextrose (D50w Syringe) 0 gm IV X1 PRN; Protocol PRN Reason: Hypoglycemia Escitalopram Oxalate (Lexapro) 5 mg PO DAILY [facility] Furosemide (Lasix) 20 mg PO DAILY [facility] Gabapentin (Neurontin) 600 mg PO BID [facility] Glucagon () 1 mg IM .X1 PRN PRN Reason: Hypoglycemia Heparin Sodium (Porcine) (Heparin Na) 0 unit IV UD PRN; Protocol Heparin Sodium/Dextrose () 25,000 units in 250 mls @ 12 mls/hr IV .[id number] [facility]; Protocol Last Admin: 10/24/19 00:34 Dose: 1,200 units/hr, 12 mls/hr Documented by: Nitroglycerin/Dextrose () 250 mls @ 3 mls/hr CONT INF .[id number] [facility]; Protocol Last Titration: 10/24/19 04:23 Dose: 5 mcg/min, 3 mls/hr Documented by: Sodium Chloride () 250 mls @ 15 mls/hr IV .[id number] PRN PRN Reason: Saline Flush Sodium Chloride () 250 mls @ 15 mls/hr IV .[id number] PRN PRN Reason: Additional IVPB Infusion Insulin Human Lispro (Humalog Kwikpen (Bkc)) 0 unit SC Q6 [facility]; Protocol Multivit/Ca Carb/B Cmplx/FA/Prenat (Nephrocaps, Renaphro) 1 capsule PO DAILY [facility] Nicotine (Nicoderm Cq (Pbkc)) 21 mg TRANSDERM. DAILY [facility] Ondansetron HCl (Zofran) 4 mg IV Q8H PRN PRN PRN Reason: NAUSEA/VOMITING Sodium Chloride () 10 - 40 ml IV UD PRN PRN Reason: SALINE FLUSH Trimethoprim (Trimpex) 100 mg PO QODAY PRN Assessment/Plan All Active Problems (Last Updated 09/14/19 @ 09:35 by Elaina Albert) Unstable angina (Acute) Chest pain, unspecified (Acute) Syncope and collapse (Acute) The patient is a 49 year old M with a significant history of CAD status post stent; CKD stage III; diabetes mellitus; neurogenic bladder; chronic pain and tobacco abuse who presents emergency department with episodic left-sided chest pain that radiates across his right chest and to his right shoulder. Unstable angina Place on stepdown status on the PCU. Aspirin and Plavix continued. Coreg continued. Continue nitroglycerin drip and heparin drip started at emergency department. High intensity statin continued. We will keep patient n.p.o. for possible percutaneous intervention. Actual CXR image was independently visualized. No acute cardiopulmonary process was noted. Actual EKG tracing was independently visualized. EKG tracing showed sinus rhythm with no abnormal ST or T waves. Serial cardiac enzymes ordered Stat EKG as needed for chest pain Cardiology consult Acute cystitis Review of emergency department labs showed abnormal urinalysis. Patient received ceftriaxone the emergency department. Patient complained of right- sided flank pain. We will continue patient on Rocephin. Urine culture is pending. Hypertension On presentation blood pressure was not within goal. Hold home imdur since christianne ent has been started on IV nitroglycerin. Carvedilol continued. Trend blood pressure and adjust blood pressure medications. Depression/anxiety Lexapro continued. Neurogenic bladder Okay for patient to self catheterize at the hospital as he does at home. Tobacco abuse Counseled Nicotine patch prescribed. Chronic pain Hydrocodone?acetaminophen as needed continue. Diabetes mellitus Glimepiride held in the hospital setting. Accu-Chek QA CHS while n.p.o. Correction scale insulin ordered. DVT prophylaxis Not indicated since patient is on heparin drip for unstable angina. Inpatient E&M: 35128 Init Hosp L3
[2019-10-24 06:30] LABS: Bedside Glucose 95 mg/dL (70-110)
[2019-10-24 07:00] LABS: Partial Thromboplast Time 87.3 Seconds (24.1-36.2)
--- NOTE | 2019-10-24 09:34 | EKG12_ITS ---
Test Reason : CP Blood Pressure : / mmHG Vent. Rate : 072 BPM Atrial Rate : 072 BPM P-R Int : 158 ms QRS Dur : 086 ms QT Int : 396 ms P-R-T Axes : 027 064 053 degrees QTc Int : 433 ms Normal sinus rhythm Normal ECG When compared with ECG of 24-OCT-2019 03:06, MANUAL COMPARISON REQUIRED, DATA IS UNCONFIRMED Confirmed by MOISES ROBERTS, MARGIE ([id number]), medical transcription editor EZEQUIEL LUDWIG ([id number]) on 10/26/2019 11:06:02 AM Referred By: NICO Confirmed By:MARGIE DE LEON MD
--- NOTE | 2019-10-24 09:39 | PCM.CONS.C ---
Problem List (1) Chest pain, unspecified Status: Acute Reason for Consult Date of Consultation: 10/24/19 Reason for Consultation: Incapacitating chest pain History of Present Illness: The patient is a 49 year old M [] Was admitted for frequent atypical rest pain associated with nausea and diaphoresis with radiation to the right arm and the jaw. Patient's cardiac history dates back to 2016. At that time patient had acute myocardial infarct treated with stenting of the left circumflex. At that time there was moderate disease of the mid left anterior descending and diagonal branch. Since then patient continues to have on and off chest pain. He had undergone 2 stress echo test. The latest one was within a month and both of them were normal. There was no chest pain on the treadmill. Patient did have repeat cardiac catheterization 1-1/2 years ago. The stent was patent. For the last several days, patient has had frequent substernal rest pain as described above lasting up to 5 minutes. Because of this he was admitted for observation. In the emergency room, there was questionable ST elevation during chest pain on the rhythm from the monitor. Patient is known to have hypertension, diabetes and hyperlipidemia. He is a heavy smoker about 2 packs of cigarettes a day. However, lately he tries to cut it down to half a pack a day. He is very depressed. He does not think that quitting smoking at this time will help his mental status. He is disabled because of ankylosing spondylitis of the spine. He has had neurogenic bladder. He also has had stage III renal insufficiency. He is a non-drinker. In a good day, patient could not walk too far because of pain in the low back and legs Past Medical History Allergies/Adverse Reactions: Allergies sulfamethoxazole [From Bactrim] Allergy (Mild, Verified 09/13/19 17:11) Rash trimethoprim [From Bactrim] Allergy (Mild, Verified 09/13/19 17:11) Rash bupropion [From Wellbutrin] Adverse Reaction (Verified 09/13/19 17:11) Elevated BP Home Medications: Ambulatory Orders Medication Instructions Recorded Escitalopram Oxalate [Lexapro] 5 mg PO DAILY 04/21/15 Fish Oil/Dha/Epa [Fish Oil 1,200 1 ea PO DAILY 04/21/15 mg Fish Oil] Allopurinol [Zyloprim] 100 mg PO DAILY 07/25/15 Aspirin E.C. [Ecotrin] 81 mg PO DAILY@0800 05/01/18 Atorvastatin Calcium [Lipitor] 80 mg PO QHS 05/01/18 B Complex W-C No.20/Folic Acid 1 mg PO DAILY 05/01/18 [Nephrocaps Softgel] Gabapentin [Neurontin] 600 mg PO BID 05/01/18 Hydrocodone/Acetaminophen 1 tab PO Q4H PRN PRN 05/01/18 [Hydrocodone-Acetamin 5-325 mg] Trimethoprim [Trimpex] 100 mg PO QODAY 05/01/18 Cholecalciferol (Vitamin D3) 5,000 unit PO DAILY 05/07/19 [Vitamin D3] Glimepiride 1 mg PO DAILY 06/05/19 furosemide 20 mg tablet 20 mg PO DAILY #30 tab 09/14/19 clopidogrel 75 mg tablet 75 mg PO DAILY #90 tab 09/30/19 carvedilol 25 mg tablet 25 mg PO BID #180 tab 10/01/19 isosorbide mononitrate 60 mg 60 mg PO DAILY #30 tab 10/01/19 tablet,extended release 24 hr Past Medical History (Chronic Problems): Chronic Problems (Last Reviewed 10/24/19 @ 05:[address] Manolo Thao MD) Diabetes mellitus type II, controlled (Chronic) Coronary artery disease (Chronic) Essential hypertension (Chronic) History of left heart catheterization (Chronic) 09/29/[address] Suarez, 12/19/[address] Louis; both at [facility] Neurogenic bladder (Chronic) Chronic kidney disease, stage 3 (Chronic) History of coronary artery stent placement (Chronic 09/29/16) PCI-HECTOR-Mid Cx 09/29/16 Atherosclerosis of coronary artery of [place] heart without angina pectoris (Chronic) PCI-HECTOR-Mid Cx 09/29/16 Sleep-disordered breathing (Chronic) NSVT (nonsustained ventricular tachycardia) (Chronic) Smoking addiction (Chronic) Hyperlipidemia (Chronic) Osteoarthritis (Chronic) Spinal stenosis of lumbar region (Chronic) Chronic radicular lumbar pain (Chronic) STEMI (ST elevation myocardial infarction) (Chronic) Sciatica (Chronic) Surgical History: - Psychiatric History: No pertinent psych hx - *Family History Maternal Family History: Family History (Last Reviewed 10/24/19 @ 05:[address] Manolo Thao MD) Grandfather CAD (coronary artery disease) History Items: No pertinent history Paternal Family History: Family History (Last Reviewed 10/24/19 @ 05:[address] Manolo Thao MD) Grandfather CAD (coronary artery disease) History Items: Hypertension Lives: With Family Smoking Status: Current every day smoker Alcohol: None Drugs: None Review of Systems - Review of Systems General: Reports: Fatigue - Depressed Cardiovascular: Reports: Chest Discomfort Gastrointestinal: Denies: Hematemesis, Hematochezia, Melena Genitourinary: Reports: - - Neurogenic bladder with chronic Bennett catheter Muscoloskeletal: Reports: Muscle Weakness, Back Pain, Leg Pain Psychiatric: Reports: Depression Hematologic/ Lymphatic: Reports: Easy Brusing Objective: Vital Signs Temp Pulse Resp BP Pulse Ox 97.8 F 66 16 149/96 H 93 10/24/19 02:57 10/24/19 07:17 10/24/19 06:00 10/24/19 06:00 10/24/19 06:50 Oxygen Delivery Method Room Air Weight: 214 lb 1.102 oz Body Mass Index (BMI) 28.2 Finger Stick Blood Glucose 186 Intake and Output for Last 24 Hours 10/22/19 10/23/19 10/24/19 23:59 23:59 23:59 Intake Total 246.55 / 246.55 Balance 246.55 / 246.55 General: Healthy Appearing, Oriented x 3, No Acute Distress HEENT: Atraumatic Neck: Supple Lungs: Clear to auscultation, Diminished Jose R Bases Cardiovascular: Regular Rhythm, Normal S1, Normal S2, No Murmurs Vascular: No Carotid Bruits, Normal Femoral Pulses, Normal Radial Pulses, Normal Dorsalis Pedal Pulse, Normal Posterior Tibial Pulses Abdomen: Bowel Sounds Present, Soft, Non Tender, No HSM, No Organomegaly Extremities: Bilateral Edema +1 Neurological: CN II-XII Intact Psych/Mental Status: Depressed 10/23/19 22:05: WBC 7.9, RBC 5.07, Hgb 15.4, Hct 47.5, MCV 93.7, MCH 30.4, MCHC 32.4, Plt Count 223, MPV 9.3, Immature Gran % (Auto) 0.600, Neut % (Auto) 58.5, Lymph % (Auto) 29.7, [place] % (Auto) 7.6, Eos % (Auto) 3.0, Baso % (Auto) 0.6, Absolute Neuts (auto) 4.6, Nucleated RBC % 0 10/23/19 22:05: Sodium 141, Potassium 3.6, Chloride 107, Carbon Dioxide 26.0, Anion Gap 8, BUN 25 H, Creatinine 2.14 H, Est GFR (MDRD) Af Amer 42 L, Est GFR (MDRD) Non-Af 35 L, BUN/Creatinine Ratio 11.7, Glucose 216 H, Calcium 8.8, Troponin I < 0.015 10/23/19 22:05: APTT 30.9 10/23/19 22:26: Urine Color Straw, Urine Clarity Clear, Urine pH 6.5, Ur Specific [place] 1.010, Urine Protein 100 H, Urine Glucose (UA) Normal, Urine Ketones Negative, Urine Occult Blood 25 H, Urine Nitrite Negative, Urine Bilirubin Negative, Urine Urobilinogen Normal, Ur Leukocyte Esterase 25 H, Urine RBC 0-5 SEEN, Urine WBC 5-10 SEEN 10/24/19 02:47: WBC 8.5, RBC 4.82, Hgb 14.7, Hct 45.2, MCV 93.8, MCH 30.5, MCHC 32.5, Plt Count 205, MPV 9.3, Immature Gran % (Auto) 0.600, Neut % (Auto) 52.0, Lymph % (Auto) 34.9, [place] % (Auto) 8.6, Eos % (Auto) 3.4, Baso % (Auto) 0.5, Absolute Neuts (auto) 4.4, Nucleated RBC % 0 10/24/19 02:47: Troponin I < 0.015 10/24/19 05:38: Troponin I < 0.015 10/24/19 06:37: APTT 87.3 H 10/24/19 08:34: Troponin I 0.016 Rhythm: EK sets of EKG were normal. ECHO: Stress Test: Cardiac Cath: PCI: CT Surgery: Holter monitor: EPS: PPM: CXR: Chest CT Scan: Assessment/Plan #1 frequent atypical incapacitating chest pain. I would recommend cardiac catheterization to be repeated tomorrow. Because of the stage III renal insufficiency, I would start hydrating him with normal saline. Patient had stenting of the left circumflex for acute myocardial infarct 3 years ago. However repeat cardiac catheterization with patent stent a year and a half ago and 2 normal stress echocardiogram, and the fact the patient had chronic enclosing spondylitis of the spine, the probability of finding disease bad enough for stenting is unlikely. However because of the incapacitating nature of the chest pain, it is worthwhile to proceed. The risk and benefit of the cardiac catheterization have been explained to the patient, he has accepted the risk. #2. Hypertension, will aggressively lower the blood pressure by adding amlodipine especially patient has stage III renal insufficiency. #3. Recommend further management of the type 2 diabetes #4 highly recommend discouraging smoking
[2019-10-24] MEDS: amLODIPine 5 MG Tablet PO (09:50)
[2019-10-24] MEDS: Gabapentin 600 MG Tablet PO ×2 (09:52→21:37)
[2019-10-24] MEDS: Escitalopram Oxalate 10 MG Tablet 5 MG PO (09:52)
[2019-10-24] MEDS: Clopidogrel Bisulfate 75 MG Tablet PO (09:53)
[2019-10-24] MEDS: Furosemide 20 MG Tablet PO (09:53)
[2019-10-24] MEDS: Carvedilol 25 MG Tablet PO ×2 (09:53→21:36)
[2019-10-24] MEDS: Folic Acid/Vitamin B Comp W-C 1 Capsule 1 CAP PO (09:54)
[2019-10-24] MEDS: Aspirin E.C. 81 MG Tablet PO (09:54)
[2019-10-24] MEDS: Allopurinol 100 MG Tablet PO (09:55)
[2019-10-24] MEDS: 0.9% Normal Saline 1,000 ML 75 ML IV (11:35)
--- NOTE | 2019-10-24 11:38 | PCM.PROGNOTE ---
Patient Problems: Active and Suspected Problems (Last Reviewed 10/24/19 @ 05:[address] Manolo Thao MD) Unstable angina (Acute) Subjective: Patient seen and examined. Reports intermittent chest pain overnight and this morning. Evaluated by cardiology, plan for heart cath in a.m. - Physical Exam Vitals/I&O's: Vital Signs Temp Pulse Resp BP Pulse Ox 98.3 F 70 16 142/114 H 93 10/24/19 10:00 10/24/19 10:00 10/24/19 10:00 10/24/19 10:00 10/24/19 10:00 Oxygen Delivery Method Room Air Weight: 214 lb 1.102 oz Body Mass Index (BMI) 28.2 Finger Stick Blood Glucose 186 Intake and Output for Last 24 Hours 10/22/19 10/23/19 10/24/19 23:59 23:59 23:59 Intake Total 500.80 / 500.80 Output Total 550 / 550 Balance -49.20 / -49.20 General: Alert, Oriented x3, Cooperative HEENT: Atraumatic, PERRLA, EOMI, Normocephalic Neck: Supple, No JVD, Negative Carotid Bruits Lungs: Clear to auscultation, Normal air movement Cardiovascular: Regular rate, No murmurs Abdomen: Bowel Sounds Present, Soft, Non Tender Extremities: No clubbing, No cyanosis, No edema, Capillary Refill Less than 3 Seconds Skin: No rashes Musculoskeletal: No Tenderness to Palpation of Joints or Extremities Neurological: Cranial nerves II-XII grossly intact, Neuro grossly intact Psych/Mental Status: Normal Affect, Appropriate Laboratory Results 10/23/19 22:05: WBC 7.9, RBC 5.07, Hgb 15.4, Hct 47.5, MCV 93.7, MCH 30.4, MCHC 32.4, RDW Std Deviation 45.8 H, RDW Coeff of Akua 13.5, Plt Count 223, MPV 9.3, Immature Gran % (Auto) 0.600, Neut % (Auto) 58.5, Lymph % (Auto) 29.7, Mcclain % (Auto) 7.6, Eos % (Auto) 3.0, Baso % (Auto) 0.6, Absolute Neuts (auto) 4.6, Absolute Lymphs (auto) 2.36, Nucleated RBC % 0 10/23/19 22:05: Sodium 141, Potassium 3.6, Chloride 107, Carbon Dioxide 26.0, Anion Gap 8, BUN 25 H, Creatinine 2.14 H, Estim Creat Clear Calc 46.15, Est GFR (MDRD) Af Amer 42 L, Est GFR (MDRD) Non-Af 35 L, BUN/Creatinine Ratio 11.7, Glucose 216 H, Calcium 8.8, Troponin I < 0.015 10/23/19 22:05: APTT 30.9 10/23/19 22:26: Urine Color Straw, Urine Clarity Clear, Urine pH 6.5, Ur Specific Ermine 1.010, Urine Protein 100 H, Urine Glucose (UA) Normal, Urine Ketones Negative, Urine Occult Blood 25 H, Urine Nitrite Negative, Urine Bilirubin Negative, Urine Urobilinogen Normal, Ur Leukocyte Esterase 25 H, Urine RBC 0-5 SEEN, Urine WBC 5-10 SEEN, Ur Squamous Epith Cells 0 SEEN, Urine Bacteria 1+, Urine Mucus 0 SEEN 10/24/19 02:47: WBC 8.5, RBC 4.82, Hgb 14.7, Hct 45.2, MCV 93.8, MCH 30.5, MCHC 32.5, RDW Std Deviation 45.8 H, RDW Coeff of Akua 13.5, Plt Count 205, MPV 9.3, Immature Gran % (Auto) 0.600, Neut % (Auto) 52.0, Lymph % (Auto) 34.9, Mcclain % (Auto) 8.6, Eos % (Auto) 3.4, Baso % (Auto) 0.5, Absolute Neuts (auto) 4.4, Absolute Lymphs (auto) 2.97, Nucleated RBC % 0 10/24/19 02:47: Troponin I < 0.015 10/24/19 05:38: Troponin I < 0.015 10/24/19 06:21: POC Glucose 95 10/24/19 06:37: APTT 87.3 H 10/24/19 08:34: Troponin I 0.016 Current Medications Acetaminophen (Tylenol) 650 mg PO Q6H PRN PRN PRN Reason: Pain Score 1-10/Temp > 100.7 F Hydrocodone Bitart/Acetaminophen ([place] 5mg-325mg) 1 tablet PO Q4H PRN PRN PRN Reason: Pain Score 1-10/10 Allopurinol (Zyloprim) 100 mg PO DAILY [facility] Last Admin: 10/24/19 09:55 Dose: 100 mg Documented by: Amlodipine Besylate (Norvasc) 5 mg PO DAILY [facility] Last Admin: 10/24/19 09:50 Dose: 5 mg Documented by: Aspirin (Ecotrin) 81 mg PO DAILY@0800 [facility] Last Admin: 10/24/19 09:54 Dose: 81 mg Documented by: Atorvastatin Calcium (Lipitor) 80 mg PO QHS [facility] Carvedilol (Coreg) 25 mg PO BID [facility] Last Admin: 10/24/19 09:53 Dose: 25 mg Documented by: Cholecalciferol (Vitamin D (25mcg)) 5,000 unit PO DAILY [facility] Last Admin: 10/24/19 09:53 Dose: 5,000 unit Documented by: Clopidogrel Bisulfate (Plavix) 75 mg PO DAILY [facility] Last Admin: 10/24/19 09:53 Dose: 75 mg Documented by: Dextrose (D50w Syringe) 0 gm IV X1 PRN; Protocol PRN Reason: Hypoglycemia Escitalopram Oxalate (Lexapro) 5 mg PO DAILY [facility] Last Admin: 10/24/19 09:52 Dose: 5 mg Documented by: Furosemide (Lasix) 20 mg PO DAILY [facility] Last Admin: 10/24/19 09:53 Dose: 20 mg Documented by: Gabapentin (Neurontin) 600 mg PO BID [facility] Last Admin: 10/24/19 09:52 Dose: 600 mg Documented by: Glucagon () 1 mg IM .X1 PRN PRN Reason: Hypoglycemia Heparin Sodium (Porcine) (Heparin Na) 0 unit IV UD PRN; Protocol Heparin Sodium/Dextrose () 25,000 units in 250 mls @ 12 mls/hr IV .[id number] [facility]; Protocol Last Titration: 10/24/19 07:17 Dose: 1,100 units/hr, 11 mls/hr Documented by: Sodium Chloride () 250 mls @ 15 mls/hr IV .[id number] PRN PRN Reason: Additional IVPB Infusion Ceftriaxone Sodium (Rocephin) 1 gm in 50 mls @ 100 mls/hr IV Q24H [facility] Sodium Chloride () 1,000 mls @ 75 mls/hr IV .[id number] [facility] Last Admin: 10/24/19 11:35 Dose: 75 mls/hr Documented by: Insulin Human Lispro (Humalog Kwikpen (Bkc)) 0 unit SC Q6 [facility]; Protocol Last Admin: 10/24/19 11:35 Dose: Not Given Documented by: Multivit/Ca Carb/B Cmplx/FA/Prenat (Nephrocaps, Renaphro) 1 capsule PO DAILY [facility] Last Admin: 10/24/19 09:54 Dose: 1 capsule Documented by: Nicotine (Nicoderm Cq (Pbkc)) 21 mg TRANSDERM. DAILY [facility] Last Admin: 10/24/19 09:55 Dose: 21 mg Documented by: Ondansetron HCl (Zofran) 4 mg IV Q8H PRN PRN PRN Reason: NAUSEA/VOMITING Sodium Chloride () 10 - 40 ml IV UD PRN PRN Reason: SALINE FLUSH Trimethoprim (Trimpex) 100 mg PO QODAY PRN Medical Necessity - Tobacco Use Smoking Status: Current every day smoker Assessment/Plan All Active Problems (Last Reviewed 10/24/19 @ 05:[address] Manolo Thao MD) Unstable angina (Acute) Chest pain, unspecified (Acute) Syncope and collapse (Acute) 1. Unstable angina with history of CAD status post PCI-patient with NSTEMI September 2016 which required stenting with HECTOR to left circumflex. Patient underwent cardiac catheterization December 2017 which demonstrated mid LAD moderate luminal irregularities up to 50%, diagonal 180% stenosis. Patient underwent stress echo 10/06/2019 which was negative for ischemia. Gated ejection fraction 65%. Cardiology consulted. Continue aspirin, statin, Plavix, beta-rachel. On heparin drip. Plan for heart cath in a.m. 2. Acute kidney injury on chronic kidney disease stage III- gentle IV fluids. Trend BMP. PRN bladder scan. 3. History of nonsustained ventricular tachycardia 4. Possible UTI- neurogenic bladder-continue home self catheterization regimen. Associated frequent UTIs. Patient on chronic preventative antibiotic therapy with trimethoprim. Urinalysis shows 1+ bacteria. Culture pending. On IV Rocephin empirically. Follow culture. 5. Hypertension-stable, continue home regimen. 6. Hyperlipidemia-continue statin. 7. Tobacco dependence-encourage smoking cessation. 8. Chronic back pain secondary to lumbar canal stenosis/sciatica/osteoarthritis-continue home gabapentin regimen. 9. Depression-continue home Lexapro regimen. DVT prophylaxis-Heparin drip This patient was seen by LOTTIE Alvarenga under the supervision of Dr. Soto.
[2019-10-24 11:40] LABS: Bedside Glucose 126 mg/dL (70-110)
[2019-10-24 13:44] LABS: Partial Thromboplast Time 62.3 Seconds (24.1-36.2)
[2019-10-24 14:01] LABS: Magnesium 2.2 mg/dL (1.6-2.6)
--- NOTE | 2019-10-24 15:27 | EKG12_ITS ---
Test Reason : CP ADMIT Blood Pressure : / mmHG Vent. Rate : 063 BPM Atrial Rate : 063 BPM P-R Int : 166 ms QRS Dur : 090 ms QT Int : 420 ms P-R-T Axes : 030 058 027 degrees QTc Int : 429 ms Normal sinus rhythm Normal ECG When compared with ECG of 02-SEP-2019 21:29, No significant change was found Confirmed by MOISES ROBERTS, MARGIE ([id number]), restaurant expeditor EZEQUIEL LUDWIG ([id number]) on 10/26/2019 11:07:00 AM Referred By: Confirmed By:MARGIE DE LEON MD
[2019-10-24 16:56] LABS: Bedside Glucose 142 mg/dL (70-110)
[2019-10-24] MEDS: 0.9% Saline Lock 10 ML Syringe IV (17:48)
[2019-10-24] MEDS: Morphine 2 MG/ML Syringe IV (17:48)
[2019-10-24] MEDS: Insulin Lispro 100 UNIT/ML INSULN.PEN SC (21:36)
[2019-10-24] MEDS: Atorvastatin Calcium 80 MG Tablet PO (21:37)
[2019-10-24 21:50] LABS: Bedside Glucose 153 mg/dL (70-110)
[2019-10-25] VITALS (38 sets, daily range): BP systolic 79–178; BP diastolic 47–121; PULSE 65–117; RESP 10–25; TEMP 36.6–36.9; O2SAT 92–100; BMI 28.2
[2019-10-25] MEDS: 0.9% Normal Saline 1,000 ML 75 ML IV (01:32)
[2019-10-25 05:54] LABS: Absolute Lymphocyte Count 1.91 X10^3/uL (0.83-4.51); Absolute Neutrophil Count 4.3 X10^3/uL (2.0-7.7); Basophil# 0.04 X10^3/uL; Basophil% 0.6 % (0-1); Eosinophil# 0.23 X10^3/uL; Eosinophils% 3.2 % (0-5); Hemoglobin 15.4 g/dL (13.0-16.5); Lymphocyte # 1.91 X10^3/ul (4.0); Lymphocyte % 26.8 % (19-41); Mean Corp Hgb Conc 32.8 g/dL (32-36); Mean Corpuscular Hgb 30.7 pg (27.0-32.0); Mean Corpuscular Volume 93.8 fL (80-94); Mean Platelet Vol. 9.2 fl (6.2-12.0); Monocyte# 0.63 X10^3/uL; Monocyte% 8.8 % (0-10); NRBC Flagged by Analyzer 0 % (0-5); Neutrophil # 4.29 X10^3/uL (2.7-7.7); Platelet Count 196 K/mm3 (150-450); RBC Distribution Width CV 13.5 % (11.6-14.6); RBC Distribution Width SD 45.6 fl (35.1-43.9); Red Blood Count 5.01 M/mm3 (4.6-6.2); White Blood Count 7.1 K/mm3 (4.4-11.0)
--- NOTE | 2019-10-25 05:55 | EKG12_ITS ---
Test Reason : AM EKG Blood Pressure : / mmHG Vent. Rate : 071 BPM Atrial Rate : 071 BPM P-R Int : 174 ms QRS Dur : 086 ms QT Int : 390 ms P-R-T Axes : 016 037 028 degrees QTc Int : 423 ms Normal sinus rhythm Normal ECG When compared with ECG of 24-OCT-2019 15:32, MANUAL COMPARISON REQUIRED, DATA IS UNCONFIRMED Confirmed by MOISES ROBERTS, MARGIE ([id number]), graphics editor EZEQUIEL LUDWIG ([id number]) on 10/26/2019 11:01:01 AM Referred By: DR LUGO Confirmed By:MARGIE DE LEON MD
[2019-10-25 06:07] LABS: International Normalized Ratio 0.9; Prothrombin Time (Protime)PT. 11.8 SECONDS (11.7-14.9)
[2019-10-25 06:26] LABS: Anion Gap 6 (5-15); BUN 20 mg/dL (7-18); BUN/Creat Ratio 12.3 RATIO (10-20); Calcium,Total 8.2 mg/dL (8.5-10.1); Chloride 108 mmol/L (98-107); Cholesterol 166 mg/dL (200); Creatinine, Serum 1.63 mg/dL (0.70-1.30); EST Glomerular Filtration Rate 48 mL/min (>60); Est Glom Filt Rate - Afr Amer 58 mL/min (>60); Estimated Creatinine Clearance 60.59 ml/min; Glucose 152 mg/dL (74-106); High Density Lipoprotein 22 mg/dL; Potassium 3.7 mmol/L (3.5-5.1); Sodium Level 140 mmol/L (136-145); Triglycerides 707 mg/dL
[2019-10-25] MEDS: Aspirin E.C. 81 MG Tablet PO (06:34)
[2019-10-25] MEDS: Carvedilol 25 MG Tablet PO ×2 (06:34→21:01)
[2019-10-25] MEDS: Clopidogrel Bisulfate 75 MG Tablet PO (06:34)
[2019-10-25] MEDS: amLODIPine 5 MG Tablet PO (06:34)
[2019-10-25 06:46] LABS: Bedside Glucose 165 mg/dL (70-110)
--- NOTE | 2019-10-25 09:03 | CASEMGMT ---
According to the [facility], the following are in-network tertiary facilities: [facility], [place], [facility], [place], [facility], [facility], [place], [facility], and . Patsy FOSTER CM
[2019-10-25] MEDS: DiphenhydrAMINE 25 MG Capsule 50 MG PO (10:34)
--- NOTE | 2019-10-25 10:53 | NURSING ---
report called to refuse laborer at this time
--- NOTE | 2019-10-25 11:52 | CASEMGMT ---
This RN CM to room to complete CM assessment and pt is out of the dept for heart cath at this time. Will attempt again later. SStgeovani FOSTER CM
--- NOTE | 2019-10-25 12:15 | EKG12_ITS ---
Test Reason : POST PCI Blood Pressure : / mmHG Vent. Rate : 064 BPM Atrial Rate : 064 BPM P-R Int : 166 ms QRS Dur : 082 ms QT Int : 398 ms P-R-T Axes : 038 048 039 degrees QTc Int : 410 ms Normal sinus rhythm Normal ECG When compared with ECG of 25-OCT-2019 05:34, MANUAL COMPARISON REQUIRED, DATA IS UNCONFIRMED Confirmed by LEXY SUAREZ ([id number]), clinical editor EZEQUIEL LUDWIG ([id number]) on 11/02/2019 11:29:56 AM Referred By: Lexy Suarez Confirmed By:LEXY SUAREZ
--- NOTE | 2019-10-25 12:24 | CL.I_ITS ---
Patient Name: MARY TAYLOR Study Date: 10/25/2019 Performing: Pascual Suarez MD Ht: 73 inches 185 cm : 1970 Wt: 214.1 lbs 97 kg Age: 49 Gender: male BSA: 2.21 PROCEDURE(S) PERFORMED [id number]/LV [id number] W OR WO PTCA, SINGLE CORONARY ARTERY CLINICAL PROFILE AND CO-MORBIDITIES Indications: ACS <= 24 hrs, New Onset Angina <= 2 months, Stable Known CAD Heart Failure: None Stress/Imaging Date: 10/06/2019 Stress Echocardiogram: Negative Angina Classification Anginal Classification w/in 2 Weeks: CCS IV Comorbidities/Risk Factors: Current/Recent Smoker (< 1year) Hypertension Dyslipidemia Prior MO Prior PCI CONCLUSIONS Normal LV size, wall motion,and systolic function Perserved Left Ventricular systolic function with normal EDP LVEF: by LV gram 65 % Single vessel CAD of the RCA Non obstructive coronary arteries Successful PTCA/HECTOR mid RCA with a 4.0 x 16 Promus Synergy, post dilated throughout with a 4.0 x 8 NC Balloon; 85%-->0%, no dissection. RECOMMENDATIONS Referred for immediate PCI Management as per referring Die Mechanic Highly recommend quitting all tobacco products Follow up with primary professor of sport management Risk factor modification ASA Indefinitley Plavix for at least 12 months Routine post interventional care Refer for Outpatient Cardiac Rehab Manual sheath removal per protocol Follow up with Dr. Suarez Manual sheath removal as pt is too thin for closure. Medical management of small DIAG and mid diffuse long LAD as it looks the same as in 2018 cath and no evidence of anterior ischemia on recent stress testing. d/w Dr Pierre. DESCRIPTION OF PROCEDURE The patient arrived to the procedure lab. The risks and benefits of the procedure as well as a full d escription of our services here and lack of surgical backup were fully explained to the patient and/o r their significant other prior to the catheterization. The Timeout was completed, verifying the karma ect patient and procedure. The patient's procedural site was prepped and draped in the usual fashion. Local anesthetic was given subcutaneously to right groin region with Lidocaine 2%. Using a modified Seldinger technique, arterial access was obtained via the right femoral artery, a 4Fr sheath was inse rted. Left Coronary Artery selective angiography was performed in multiple views using a 4 Fr. JL5 c atheter. Right Coronary Artery selective angiography was then performed in multiple views using a 4 F r. 3DRC catheter. Left Ventriculography was performed in GIBBS projection using a 4 Fr. Pigtail cathete r. LV to AO pullback pressures were then recorded Arterial sheath was exchanged for a 6 Fr 55 cm Sheath. HS II Guide catheter was inserted and enga ged into the RCA. Runthrough Guide wire was advanced to the RCA. Emerge 2.0 x 8 Balloon catheter was inserted. Balloon catheter was advanced across lesion in the right coronary, mid. PTCA balloon inflat ed at 8 atms for 17 secs. PTCA balloon inflated at 8 atms for 15 secs. PTCA balloon inflated at 8 r[place] s for 13 secs. Angiogram performed post balloon dilatation. Synergy 4.0 x 16 Drug Eluting stent was i nserted. Drug Eluting stent was advanced across the lesion in the right coronary, mid. Angiogram perf ormed post stent deployment. NC Emerge 4.0 x 8 Balloon catheter was inserted. Balloon catheter was ad vanced across lesion in the right coronary, mid. Angiogram performed post balloon dilatation. The a rterial sheath was exchanged to a standard sheath and left inplace to be pulled on the floor. The art erial sheath was sutured in place and capped CORONARY ANGIOGRAPHY DOMINANCE: Right Dominant LEFT HEART ASSESSMENT Left Ventricular Ejection Fraction: by LV Gram 65 % Normal Left Ventricular systolic function Normal LV wall motion LEFT MAIN: Angiographically normal LEFT ANTERIOR DESCENDING ARTERY: MID LAD: Moderate luminal irregularities up to 50% DIAGONAL 1: Proximal - 65 % Stenosis CIRCUMFLEX ARTERY: DISTAL CIRC: Previously placed stent is patent RIGHT CORONARY ARTERY: PROX RCA: Mild luminal irregularities less than 30% MID RCA: 85 % Stenosis DISTAL RCA: Moderate luminal irregularities up to 50% INTERVENTION INFORMATION LESION SITE: RCA (Mid) Lesion Complexity: Non-High/Non-C, lesion at bifurcation: No, thrombus present: No, lesion length: 16 mm, culprit lesion: Yes Pre Stenosis: 85 % Pre intervention ROSALINDA flow: 3 PROCEDURE: Drug Eluting Stent with pre and post dilatation Post Stenosis: 0 % Post intervention ROSALINDA flow: 3 Lesion Devices: Cook 6F 55cm Sheath Terumo .014 Runthrough Extra Floppy 180cm straight eVigilotronic 6 Fr HSII 100cm Guide Catheter Kavin Sci EMERGE MR 2.00x08 BALLOON Kavin Sci Synergy MR HECTOR 4.00x16 Kavin Sci NC EMERGE MR 4.00x08 BALLOON COMPLICATIONS No Complications PROCEDURE MEDICATIONS Oxygen: 2 L/min via nasal cannula Heparin 6000 unit(s) IV 10/25/2019 11:43:37 Nitro 200 mcg IC 10/25/2019 11:33:44 Nitro Tab 200 mg PO 10/25/2019 11:50:02 IV Bolus: .9 NaCl 400ml total 10/25/2019 11:44:01 SUMMARY OF HEMODYNAMIC DATA Time AIR REST ECG 11:25:08 AO 147/96 (118) SA 11:32:29 AO 136/106 (118) 11:32:40 LV 144/-14, 13 11:40:42 LV 151/-15, 9 11:40:48 LVp 152/-16, 9 11:40:52 AOp 148/87 (113) 11:40:58 Signed By Pascual Suarez MD On 10/25/2019 12:23:22 PM Pascual Suarez MD
--- NOTE | 2019-10-25 12:30 | PN_ITS ---
<Halle Molina - Last Filed: 10/25/19 12:35> Patient Problems: Active and Suspected Problems (Last Reviewed 10/24/19 @ 05:[address] Manolo Thao MD) Unstable angina (Acute) Subjective: Patient seen and examined. Denies further chest pain overnight. Patient underwent cardiac catheterization with PCI to RCA. - Physical Exam Vitals/I&O's: Vital Signs Temp Pulse Resp BP Pulse Ox 97.9 F 66 16 125/82 H 96 10/25/19 09:55 10/25/19 09:55 10/25/19 09:55 10/25/19 09:55 10/25/19 09:55 Oxygen Delivery Method Room Air Weight: 214 lb 1.102 oz Body Mass Index (BMI) 28.2 Finger Stick Blood Glucose 186 Intake and Output for Last 24 Hours 10/23/19 10/24/19 10/25/19 23:59 23:59 23:59 Intake Total 2783.67 / 2783.67 918.75 / 918.75 Output Total 3100 / 3100 Balance -316.33 / -316.33 918.75 / 918.75 General: Alert, Oriented x3, Cooperative HEENT: Atraumatic, PERRLA, EOMI, Normocephalic Neck: Supple, No JVD, Negative Carotid Bruits Lungs: Clear to auscultation, Normal air movement Cardiovascular: Regular rate, No murmurs Abdomen: Bowel Sounds Present, Soft, Non Tender, Non-Distended Extremities: No clubbing, No cyanosis, No edema, Capillary Refill Less than 3 Seconds Skin: No rashes, No breakdown Musculoskeletal: No Tenderness to Palpation of Joints or Extremities Neurological: Cranial nerves II-XII grossly intact, Neuro grossly intact Psych/Mental Status: Normal Affect, Appropriate Microbiology Past 72 Hours 10/23/19 22:21 Urine, Clean Catch Urine Culture - Preliminary Beta streptococcus Alpha Hemolytic Streptococcus Laboratory Results 10/24/19 08:34: Magnesium 2.2 10/24/19 13:15: APTT 62.3 H 10/24/19 16:53: POC Glucose 142 H 10/24/19 21:35: POC Glucose 153 H 10/25/19 05:35: Sodium 140, Potassium 3.7, Chloride 108 H, Carbon Dioxide 26.0, Anion Gap 6, BUN 20 H, Creatinine 1.63 H, Estim Creat Clear Calc 60.59, Est GFR (MDRD) Af Amer 58 L, Est GFR (MDRD) Non-Af 48 L, BUN/Creatinine Ratio 12.3, Glucose 152 H, Calcium 8.2 L, Triglycerides 707 H, Cholesterol 166, LDL Cholesterol TNP, VLDL Cholesterol TNP, HDL Cholesterol 22 L 10/25/19 05:35: WBC 7.1, RBC 5.01, Hgb 15.4, Hct 47.0, MCV 93.8, MCH 30.7, MCHC 32.8, RDW Std Deviation 45.6 H, RDW Coeff of Akua 13.5, Plt Count 196, MPV 9.2, Immature Gran % (Auto) 0.600, Neut % (Auto) 60.0, Lymph % (Auto) 26.8, [place] % (Auto) 8.8, Eos % (Auto) 3.2, Baso % (Auto) 0.6, Absolute Neuts (auto) 4.3, Absolute Lymphs (auto) 1.91, Nucleated RBC % 0 10/25/19 05:35: PT 11.8, INR 0.9 10/25/19 06:39: POC Glucose 165 H Current Medications Acetaminophen (Tylenol) 650 mg PO Q6H PRN PRN PRN Reason: Pain Score 1-3/10 Hydrocodone Bitart/Acetaminophen (Gage 5mg-325mg) 1 tablet PO Q4H PRN PRN PRN Reason: Pain Score 1-10/10 Albuterol Sulfate (Ventolin Aerosols) 2.5 mg INHALATION Q2H PRN PRN PRN Reason: Dyspnea, wheezing Allopurinol (Zyloprim) 100 mg PO DAILY [facility] Last Admin: 10/24/19 09:55 Dose: 100 mg Documented by: Amlodipine Besylate (Norvasc) 5 mg PO DAILY [facility] Last Admin: 10/25/19 06:34 Dose: 5 mg Documented by: Aspirin (Ecotrin) 81 mg PO DAILY@0800 [facility] Last Admin: 10/25/19 06:34 Dose: 81 mg Documented by: Atorvastatin Calcium (Lipitor) 80 mg PO QHS [facility] Last Admin: 10/24/19 21:37 Dose: 80 mg Documented by: Atropine Sulfate () 0.5 mg IV UD PRN PRN Reason: HR <50 bpm Carvedilol (Coreg) 25 mg PO BID [facility] Last Admin: 10/25/19 06:34 Dose: 25 mg Documented by: Cholecalciferol (Vitamin D (25mcg)) 5,000 unit PO DAILY [facility] Last Admin: 10/24/19 09:53 Dose: 5,000 unit Documented by: Clopidogrel Bisulfate (Plavix) 75 mg PO DAILY [facility] Last Admin: 10/25/19 06:34 Dose: 75 mg Documented by: Dextrose (D50w Syringe) 0 gm IV X1 PRN; Protocol PRN Reason: Hypoglycemia Diazepam (Valium) 5 mg PO Q6H PRN PRN PRN Reason: BACK SPASMS/ANXIETY Escitalopram Oxalate (Lexapro) 5 mg PO DAILY [facility] Last Admin: 10/24/19 09:52 Dose: 5 mg Documented by: Furosemide (Lasix) 20 mg PO DAILY [facility] Last Admin: 10/24/19 09:53 Dose: 20 mg Documented by: Gabapentin (Neurontin) 600 mg PO BID [facility] Last Admin: 10/24/19 21:37 Dose: 600 mg Documented by: Glucagon () 1 mg IM .X1 PRN PRN Reason: Hypoglycemia Heparin Sodium (Porcine) (Heparin Na) 0 unit IV UD PRN; Protocol Hydralazine HCl (Apresoline Iv) 10 mg IV Q4H PRN PRN PRN Reason: SBP > 160 Hydralazine HCl (Apresoline) 25 mg PO BID [facility] Sodium Chloride () 250 mls @ 15 mls/hr IV .[id number] PRN PRN Reason: Additional IVPB Infusion Ceftriaxone Sodium (Rocephin) 1 gm in 50 mls @ 100 mls/hr IV Q24H [facility] Last Infusion: 10/24/19 22:09 Dose: Infused Documented by: Sodium Chloride () 1,000 mls @ 75 mls/hr IV .[id number] [facility] Last Infusion: 10/25/19 10:55 Dose: 0 mls/hr Documented by: Sodium Chloride () 1,000 mls @ 0 mls/hr IV .Q0M [facility] Sodium Chloride () 1,000 mls @ 150 mls/hr IV .Q6H40M [facility] Stop: 10/25/19 18:44 Insulin Human Lispro (Humalog Kwikpen (Bkc)) 0 unit SC ACHS [facility]; Protocol Last Admin: 10/24/19 23:56 Dose: Not Given Documented by: Isosorbide Mononitrate (Imdur) 30 mg PO DAILY [facility] Labetalol HCl (Trandate) 5 mg IV X1 PRN PRN Reason: SBP > 160 when pulling sheath Stop: 10/27/19 12:05 Metoclopramide HCl (Reglan) 5 mg IV Q6H PRN PRN PRN Reason: NAUSEA/VOMITING Morphine Sulfate () 2 - 4 mg IV Q4H PRN PRN PRN Reason: Pain Score 1-10/10 Morphine Sulfate () 2 - 4 mg IV Q4H PRN PRN PRN Reason: Pain Score 1-10/10 Multivit/Ca Carb/B Cmplx/FA/Prenat (Nephrocaps, Renaphro) 1 capsule PO DAILY [facility] Last Admin: 10/24/19 09:54 Dose: 1 capsule Documented by: Nicotine (Nicoderm Cq (Pbkc)) 21 mg TRANSDERM. DAILY [facility] Last Admin: 10/24/19 09:55 Dose: 21 mg Documented by: Nitroglycerin (Nitrostat) 0.4 mg SUBLINGUAL Q5M PRN PRN Reason: CARDIAC/CHEST PAIN Ondansetron HCl (Zofran) 4 mg IV Q8H PRN PRN PRN Reason: NAUSEA/VOMITING Sodium Chloride () 10 - 40 ml IV UD PRN PRN Reason: SALINE FLUSH Last Admin: 10/24/19 17:48 Dose: 10 ml Documented by: Sodium Chloride () 500 ml IV BOLUS PRN PRN Reason: VASO-VAGAL PROTOCOL Trimethoprim (Trimpex) 100 mg PO QODAY PRN Medical Necessity - Tobacco Use Smoking Status: Current every day smoker Assessment/Plan All Active Problems (Last Reviewed 10/24/19 @ 05:[address] Manolo Thao MD) Unstable angina (Acute) 1. Unstable angina with history of CAD status post PCI-patient with NSTEMI September 2016 which required stenting with HECTOR to left circumflex. Patient underwent cardiac catheterization December 2017 which demonstrated mid LAD moderate luminal irregularities up to 50%, diagonal 180% stenosis. Cardiology consulted. Continue aspirin, statin, Plavix, beta-rachel. Patient underwent heart cath this morning which demonstrated single-vessel CAD of the RCA status post PTCA/HECTOR to mid RCA. Monitor overnight. Continue medical management. 2. Acute kidney injury on chronic kidney disease stage III-SOURAV resolved with gentle IV fluids. Trend BMP. PRN bladder scan. 3. History of nonsustained ventricular tachycardia 4. Possible UTI- neurogenic bladder-continue home self catheterization regimen. Associated frequent UTIs. Patient on chronic preventative antibiotic therapy with trimethoprim. Urinalysis shows 1+ bacteria. Culture growing beta strep 50-80,000 colony count and alpha hemolytic strep 50-80,000 colony count. On IV Rocephin empirically however this may be colonization. No leukocytosis. Afebrile. No urinary symptoms. Final culture pending. 5. Hypertension-stable, continue home regimen. 6. Hyperlipidemia-continue statin. 7. Tobacco dependence-encourage smoking cessation. 8. Chronic back pain secondary to lumbar canal stenosis/sciatica/osteoarthritis- continue home gabapentin regimen. 9. Depression-continue home Lexapro regimen. DVT prophylaxis-Heparin This patient was seen by LOTTIE Alvarenga under the supervision of Dr. Pierre. <Dionne Pierre E - Last Filed: 10/25/19 12:53> - Physical Exam Vitals/I&O's: Vital Signs Temp Pulse Resp BP Pulse Ox 97.9 F 66 16 125/82 H 96 10/25/19 09:55 10/25/19 09:55 10/25/19 09:55 10/25/19 09:55 10/25/19 09:55 Oxygen Delivery Method Room Air Weight: 214 lb 1.102 oz Body Mass Index (BMI) 28.2 Finger Stick Blood Glucose 186 Intake and Output for Last 24 Hours 10/23/19 10/24/19 10/25/19 23:59 23:59 23:59 Intake Total 2783.67 / 2783.67 918.75 / 918.75 Output Total 3100 / 3100 600 / 600 Balance -316.33 / -316.33 318.75 / 318.75 Microbiology Past 72 Hours 10/23/19 22:21 Urine, Clean Catch Urine Culture - Preliminary Beta streptococcus Alpha Hemolytic Streptococcus Laboratory Results 10/24/19 08:34: Magnesium 2.2 10/24/19 13:15: APTT 62.3 H 10/24/19 16:53: POC Glucose 142 H 10/24/19 21:35: POC Glucose 153 H 10/25/19 05:35: Sodium 140, Potassium 3.7, Chloride 108 H, Carbon Dioxide 26.0, Anion Gap 6, BUN 20 H, Creatinine 1.63 H, Estim Creat Clear Calc 60.59, Est GFR (MDRD) Af Amer 58 L, Est GFR (MDRD) Non-Af 48 L, BUN/Creatinine Ratio 12.3, Glucose 152 H, Calcium 8.2 L, Triglycerides 707 H, Cholesterol 166, LDL Cholesterol TNP, VLDL Cholesterol TNP, HDL Cholesterol 22 L 10/25/19 05:35: WBC 7.1, RBC 5.01, Hgb 15.4, Hct 47.0, MCV 93.8, MCH 30.7, MCHC 32.8, RDW Std Deviation 45.6 H, RDW Coeff of Akua 13.5, Plt Count 196, MPV 9.2, Immature Gran % (Auto) 0.600, Neut % (Auto) 60.0, Lymph % (Auto) 26.8, [place] % (Auto) 8.8, Eos % (Auto) 3.2, Baso % (Auto) 0.6, Absolute Neuts (auto) 4.3, Absolute Lymphs (auto) 1.91, Nucleated RBC % 0 10/25/19 05:35: PT 11.8, INR 0.9 10/25/19 06:39: POC Glucose 165 H 10/25/19 12:05: Activated Clotting Time 219 H Current Medications Acetaminophen (Tylenol) 650 mg PO Q6H PRN PRN PRN Reason: Pain Score 1-3/10 Hydrocodone Bitart/Acetaminophen (Gage 5mg-325mg) 1 tablet PO Q4H PRN PRN PRN Reason: Pain Score 1-10/10 Albuterol Sulfate (Ventolin Aerosols) 2.5 mg INHALATION Q2H PRN PRN PRN Reason: Dyspnea, wheezing Allopurinol (Zyloprim) 100 mg PO DAILY [facility] Last Admin: 10/24/19 09:55 Dose: 100 mg Documented by: Amlodipine Besylate (Norvasc) 5 mg PO DAILY [facility] Last Admin: 10/25/19 06:34 Dose: 5 mg Documented by: Aspirin (Ecotrin) 81 mg PO DAILY@0800 [facility] Last Admin: 10/25/19 06:34 Dose: 81 mg Documented by: Atorvastatin Calcium (Lipitor) 80 mg PO QHS [facility] Last Admin: 10/24/19 21:37 Dose: 80 mg Documented by: Atropine Sulfate () 0.5 mg IV UD PRN PRN Reason: HR <50 bpm Carvedilol (Coreg) 25 mg PO BID [facility] Last Admin: 10/25/19 06:34 Dose: 25 mg Documented by: Cholecalciferol (Vitamin D (25mcg)) 5,000 unit PO DAILY [facility] Last Admin: 10/24/19 09:53 Dose: 5,000 unit Documented by: Clopidogrel Bisulfate (Plavix) 75 mg PO DAILY [facility] Last Admin: 10/25/19 06:34 Dose: 75 mg Documented by: Dextrose (D50w Syringe) 0 gm IV X1 PRN; Protocol PRN Reason: Hypoglycemia Diazepam (Valium) 5 mg PO Q6H PRN PRN PRN Reason: BACK SPASMS/ANXIETY Escitalopram Oxalate (Lexapro) 5 mg PO DAILY [facility] Last Admin: 10/24/19 09:52 Dose: 5 mg Documented by: Furosemide (Lasix) 20 mg PO DAILY [facility] Last Admin: 10/24/19 09:53 Dose: 20 mg Documented by: Gabapentin (Neurontin) 600 mg PO BID [facility] Last Admin: 10/24/19 21:37 Dose: 600 mg Documented by: Glucagon () 1 mg IM .X1 PRN PRN Reason: Hypoglycemia Heparin Sodium (Porcine) (Heparin Na) 0 unit IV UD PRN; Protocol Hydralazine HCl (Apresoline Iv) 10 mg IV Q4H PRN PRN PRN Reason: SBP > 160 Hydralazine HCl (Apresoline) 25 mg PO BID [facility] Sodium Chloride () 250 mls @ 15 mls/hr IV .[id number] PRN PRN Reason: Additional IVPB Infusion Ceftriaxone Sodium (Rocephin) 1 gm in 50 mls @ 100 mls/hr IV Q24H [facility] Last Infusion: 10/24/19 22:09 Dose: Infused Documented by: Sodium Chloride () 1,000 mls @ 75 mls/hr IV .[id number] [facility] Last Infusion: 10/25/19 10:55 Dose: 0 mls/hr Documented by: Sodium Chloride () 1,000 mls @ 0 mls/hr IV .Q0M [facility] Sodium Chloride () 1,000 mls @ 150 mls/hr IV .Q6H40M [facility] Stop: 10/25/19 18:44 Insulin Human Lispro (Humalog Kwikpen (Bkc)) 0 unit SC ACHS [facility]; Protocol Last Admin: 10/24/19 23:56 Dose: Not Given Documented by: Isosorbide Mononitrate (Imdur) 30 mg PO DAILY [facility] Labetalol HCl (Trandate) 5 mg IV X1 PRN PRN Reason: SBP > 160 when pulling sheath Stop: 10/27/19 12:05 Metoclopramide HCl (Reglan) 5 mg IV Q6H PRN PRN PRN Reason: NAUSEA/VOMITING Morphine Sulfate () 2 - 4 mg IV Q4H PRN PRN PRN Reason: Pain Score 1-10/10 Morphine Sulfate () 2 - 4 mg IV Q4H PRN PRN PRN Reason: Pain Score 1-10/10 Multivit/Ca Carb/B Cmplx/FA/Prenat (Nephrocaps, Renaphro) 1 capsule PO DAILY [facility] Last Admin: 10/24/19 09:54 Dose: 1 capsule Documented by: Nicotine (Nicoderm Cq (Pbkc)) 21 mg TRANSDERM. DAILY [facility] Last Admin: 10/24/19 09:55 Dose: 21 mg Documented by: Nitroglycerin (Nitrostat) 0.4 mg SUBLINGUAL Q5M PRN PRN Reason: CARDIAC/CHEST PAIN Ondansetron HCl (Zofran) 4 mg IV Q8H PRN PRN PRN Reason: NAUSEA/VOMITING Sodium Chloride () 10 - 40 ml IV UD PRN PRN Reason: SALINE FLUSH Last Admin: 10/24/19 17:48 Dose: 10 ml Documented by: Sodium Chloride () 500 ml IV BOLUS PRN PRN Reason: VASO-VAGAL PROTOCOL Trimethoprim (Trimpex) 100 mg PO QODAY PRN Assessment/Plan Hospitalist note: I am seeing this patient in conjunction with Halle Molina. I independently seen and examined the patient. Progress note above, laboratory data and imaging studies reviewed and I concur with the above treatment plan. Today, patient de nied any more chest pain. Denied shortness of breath, dizziness or lightheadedness. He underwent cardiac catheterization with PCI to RCA. His vital signs are stable. - Physical Exam General: Alert, Oriented x3, Cooperative, No apparent distress. HEENT: Atraumatic, PERRLA, EOMI. Neck: Supple, No JVD, Negative Carotid Bruits, Trachea Midline, Thyroid Normal. Lungs: Clear to auscultation, Normal air movement, No rhonchi, No wheeze, No rales. Cardiovascular: Regular rate, Regular Rhythm, Normal S1, Normal S2, PMI Normal. Abdomen: Bowel Sounds Present, Soft, Non Tender, Non-Distended, No Hepato- splenomegaly. Extremities: No clubbing, No cyanosis, No edema Skin: No rashes, No breakdown Neurological: Neuro grossly intact Vital Signs are stable. Assessment and plan: #1 unstable angina: Status post cardiac catheterization, found to have 85% stenosis of the mid RCA, status post PCI. He is on aspirin, statins, Plavix, Coreg, isosorbide mononitrate. Today, he has no more chest pain. His vital signs are stable. Plan to continue same treatment, anticipate discharge home tomorrow. #2 acute kidney injury on top of stage III chronic kidney disease: Baseline creatinine has been around 1.6 to 1.9 mg/dL. Admission creatinine was 2.24, improved down to 1.60 today with IV fluids. Plan to monitor. #3 probable acute cystitis: He is on IV Rocephin. He has been afebrile, no leukocytosis. Urine cultures revealed alpha and beta Streptococcus, final is pending. #4 other chronic medical problems: Stable, continue current medications as above. This note was generated with [employer] dictation software. It may contain incorrect words, spelling, and punctuation that were not noted in checking the note before signing. Inpatient E&M: 03695 Subs Hosp L2
[2019-10-25 12:31] LABS: ACT Activated Clotting Time 219 sec (74-137)
[2019-10-25 12:50] LABS: Bedside Glucose 91 mg/dL (70-110)
[2019-10-25] MEDS: Allopurinol 100 MG Tablet PO (12:50)
[2019-10-25] MEDS: Escitalopram Oxalate 10 MG Tablet 5 MG PO (12:50)
[2019-10-25] MEDS: Furosemide 20 MG Tablet PO (12:51)
[2019-10-25] MEDS: Folic Acid/Vitamin B Comp W-C 1 Capsule 1 CAP PO (12:51)
[2019-10-25] MEDS: Gabapentin 600 MG Tablet PO ×2 (12:51→21:02)
[2019-10-25] MEDS: 0.9% Normal Saline 1,000 ML 150 ML IV (12:51)
--- NOTE | 2019-10-25 13:26 | CASEMGMT ---
CRISTIAN ORTIZ assessment: Face to Face with patient for initial transition planning/care coordination assessment. CRISTIAN ORTIZ introduced self and role at [facility], pt voices understanding and consents to assessment at this time. Pt is lying in bed in no distress at this time. Pt is A/Ox4 at this time and answers all questions appropriately at this time. Care providers, pharmacy, and demographics verified at this time. Presentation: CP radiating to jaw/right arm for the past 2 days Admitting dx: Unstable angina PCP: [facility] Specialists: Erick, cardio; Be nephro; Ishmael, uro; [place], PM Preferred Pharmacy: [facility] Prescription Benefit: [facility] Living Will/HPOA: Pt states has a will and declines LW/HPOA at this time. LNOK: Anju Nelson, ; Dick Nelson, son Living Arrangements: Pt states lives with in home and state no concerns at home at this time. Pt states is independent with ADL's. Transportation: Pt states drives self and states no transportation concerns at this time. DME/HHC: Pt states has a cane that he only uses if his back bothers him and states no need for any further DME at this time. Pt states has had HHC in the past and states no hx of SNF in the past. Pt states no concerns with going home at time of discharge. 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 Pt states smokes 1/2 pk/day and does not drink ETOH. Pt states no further concerns/needs at this time. CM to follow for any further discharge planning/needs. Advised pt to ask for CM if any further questions/concerns/needs arise, voices understanding. Pt Goal: Home Plan: [place] CRISTIAN ORTIZ
--- NOTE | 2019-10-25 13:44 | CR.HP_ITS ---
CR - History & Physical - History of Present Cardiac Event Onset Date: Enter Onset Date of cardiac illnesses in Comment field below - Medications Home Medications: Ambulatory Orders Medication Instructions Recorded Escitalopram Oxalate [Lexapro] 5 mg PO DAILY 04/21/15 Fish Oil/Dha/Epa [Fish Oil 1,200 1 ea PO DAILY 04/21/15 mg Fish Oil] Allopurinol [Zyloprim] 100 mg PO DAILY 07/25/15 Aspirin E.C. [Ecotrin] 81 mg PO DAILY@0800 05/01/18 Atorvastatin Calcium [Lipitor] 80 mg PO QHS 05/01/18 B Complex W-C No.20/Folic Acid 1 mg PO DAILY 05/01/18 [Nephrocaps Softgel] Gabapentin [Neurontin] 600 mg PO BID 05/01/18 Hydrocodone/Acetaminophen 1 tab PO Q4H PRN PRN 05/01/18 [Hydrocodone-Acetamin 5-325 mg] Trimethoprim [Trimpex] 100 mg PO QODAY 05/01/18 Cholecalciferol (Vitamin D3) 5,000 unit PO DAILY 05/07/19 [Vitamin D3] Glimepiride 1 mg PO DAILY 06/05/19 furosemide 20 mg tablet 20 mg PO DAILY #30 tab 09/14/19 clopidogrel 75 mg tablet 75 mg PO DAILY #90 tab 09/30/19 carvedilol 25 mg tablet 25 mg PO BID #180 tab 10/01/19 isosorbide mononitrate 60 mg 60 mg PO DAILY #30 tab 10/01/19 tablet,extended release 24 hr - Allergies Allergies/Adverse Reactions: Allergies sulfamethoxazole [From Bactrim] Allergy (Mild, Verified 09/13/19 17:11) Rash trimethoprim [From Bactrim] Allergy (Mild, Verified 09/13/19 17:11) Rash bupropion [From Wellbutrin] Adverse Reaction (Verified 09/13/19 17:11) Elevated BP Past Medical History - Problems and Co-Morbidities Patient Problems: Active and Suspected Problems (Last Updated 10/25/19 @ 12:[address] Dionne Pierre MD) Unstable angina (Acute) - Past Medical Illness Medical History: Past Medical History (Last Updated 10/25/19 @ 12:[address] Dionne Pierre MD) Diabetes mellitus type II, controlled (Chronic) E11.9 Essential hypertension (Chronic) I10 Neurogenic bladder (Chronic) N31.9 Chronic kidney disease, stage 3 (Chronic) N18.3 Atherosclerosis of coronary artery of [place] heart without angina pectoris (Chronic) I25.10 PCI-HECTOR-Mid Cx 09/29/16 NSVT (nonsustained ventricular tachycardia) (Chronic) I47.2 Smoking addiction (Chronic) F17.200 Hyperlipidemia (Chronic) E78.5 Osteoarthritis (Chronic) M19.90 Spinal stenosis of lumbar region (Chronic) M48.06 Chronic radicular lumbar pain (Chronic) M54.16, G89.29 STEMI (ST elevation myocardial infarction) (Chronic) - Past Surgical History Surgical History: Past Surgical History (Last Updated 10/25/19 @ 12:56 by Elaina Albert) History of left heart catheterization (Chronic) Z98.890 09/29/[address] Suarez, 12/19/[address] Louis; both at [facility] History of coronary artery stent placement (Chronic) Onset Date: 10/25/19 Z95.5 PCI-HECTOR-Mid Cx 09/29/16;Successful PTCA/HECTOR mid RCA with a 4.0 x 16 Promus Synergy 10/25/2019 History of renal stent Z98.890 ileoconduit placement percutaneous nephrostomy urethral stricture surgery urinary tract diverson Surgical History: - - Family History Summary Family History: Family History (Last Reviewed 10/24/19 @ 05:[address] Manolo Thao MD) Grandfather CAD (coronary artery disease) Risk Factor Assessment - Obesity Height: 6 ft 1 in Weight:: 97.1 kg Weight in Pounds: 214.1 lbs Body Mass Index (BMI): 28.2 - For Smoking Smoking Risk Guidelines: Smoking Low Risk: None or quit greater than 6 months ago. Smoking Moderate Risk: Smoker or quit 6 months or less ago. Smoking High Risk: Smoker - For Dyslipidemia Dyslipidemia Risk Guidelines: Low Risk: Moderate Risk: High Risk: 15-25% fat 25.1-29% fat >/= 30% fat. <7% sat fat 7-9% sat fat >9% sat fat. <150 mg chol 150-299 mg chol >/= 300 mg chol. LDL <100 LDL 100-129 LDL >/= 130. Chol/HDL ratio <5.0 Chol/HDL ratio 5.0-6.0 Chol/HDL ratio >6.0. Triglycerides <100 Triglycerides 100-149 Triglycerides >/= 150 - For Diabetes Mellitus Diabetes Risk Guidelines: Diabetes Low Risk: HgA1c <6.5% and/or FBG <120. Diabetes Moderate Risk: HgA1c 6.6-7.9% and/or FBG 120-180. Diabetes High Risk: HgA1c >/= 8% and/or FBG >180 - For Obesity/Overweight Obesity/Overweight Risk Guidelines: Obesity Low Risk: BMI <25.0. Obesity Moderate Risk: BMI 25-29.9. Obesity High Risk: BMI >/= 30.0 - For Hypertension Hypertension Risk Guidelines: Hypertension Low Risk: Systolic <120 and Diastolic <80. Hypertension Moderate Risk: Systolic 120-139 and Diastolic 80-89. Hypertension High Risk: Systolic >/= 140 and Diastolic >/= 90 - For Sedentary Lifestyle Sedentary Lifestyle Risk Guidelines: Sedentary Lifestyle Low Risk: >/= 1,500 kcal/week. Sedentary Lifestyle Moderate Risk: 700-1,499 kcal/week. Sedentary Lifestyle High Risk: < 700 kcal/week - For Depression Depression Risk Guidelines: Depression Low Risk: Not clinically depressed. Depression Moderate Risk: Mildly depressed. Depression High Risk: Clinically depressed - Family History Family History: Family History (Last Reviewed 10/24/19 @ 05:[address] Manolo Thao MD) Grandfather CAD (coronary artery disease)
--- NOTE | 2019-10-25 13:45 | CRPHASE1_ITS ---
Patient Communication PHII Cardiac Rehab Discussed with Patient:: Yes Guide to Cardiac Rehab Given to Patient:: Yes Cardiac Rehab Facility Choice List Given to Patient:: Yes Choice Program [facility] CR PHII:: Communication Given to CR, Refer to [facility] Airset Caster:: Pascual Suarez Refer Phase II Cardiac Rehab:: Yes - to take place after discharge Risk Factors/Lifestyle Family History: Family History (Last Reviewed 10/24/19 @ 05:[address] Manolo Thao MD) Grandfather CAD (coronary artery disease) Laboratory Values: Cardiac Rehab Phase I Labs Triglycerides 707 mg/dL (-199) H 10/25/19 05:35 Cholesterol 166 mg/dL (200) 10/25/19 05:35 LDL Cholesterol TNP 10/25/19 05:35 HDL Cholesterol 22 mg/dL (40-) L 10/25/19 05:35 Cardiac Rehabilitation Info Cardiac Rehabilitation Program Information: Cardiac Rehabilitation is important for patients like you who are recovering from a heart problem. Cardiac rehabilitation programs are recognized as integral to the continued care of the patient with coronary heart disease. The cardiac rehabilitation program is designed to optimize a patient's physical, psychological, and social functioning. Health home care music therapist work in cardiac rehabilitation programs and assist you with getting the treatments you need to get stronger and healthier - like exercise, healthy eating habits, and medications. Cardiac rehabilitation has been show to help people with heart problems live longer and have better life enjoyment than people who do not go to cardiac rehabilitation. Please contact the Cardiac Rehabilitation Program at [facility] at in two weeks if you have not heard from them.
--- NOTE | 2019-10-25 13:47 | CRPH1.INSTRU ---
General Education CAD and cardiac anatomy and function:: Patient communicates acknowledgment Explanation of diagnoses and procedures:: Patient communicates acknowledgment Sign/Symptoms of MS:: Patient communicates acknowledgment Antiplatelet therapy: Patient communicates acknowledgment Proper use of NTG-SL: Patient communicates acknowledgment Emergency procedures and activation of EMS: Patient communicates acknowledgment Compliance of all prescribed medications: Patient communicates acknowledgment Smoking Patient Nicotine/Smoking Risk Factors Are:: Cigarettes Recommendations Include:: Participation in a smoking cessation program Nicotine/Smoking Response Code:: Patient communicates acknowledgment Dyslipidemia Patient Dyslipidemia Risk Factors Are:: Total Cholesterol - 166, Triglycerides - 707, HDL - 22 Recommendations Include:: Lipid profile provided, Reviewed NCEP/ATP guidelines, Therapeutic Lifestyle Change dietary guidelines Dyslipidemia Response Code:: Patient communicates acknowledgment Overweight/Obesity Patient Overweight/Obesity Risk Factors Are:: Overweight = 26-29 Recommendations Include:: Weight loss of 5-10%, Reduced calorie diet, Exercise 5-7 times/week Overweight/Obesity:: Patient communicates acknowledgment Hypertension Recommendations Include:: Maintain BP <130/85, BP <130/80 if diabetic, DASH dietary guidelines, Decrease/maintain normal body weight, Moderation of ETOH Hypertension:: Patient communicates acknowledgment Heart Disease Patient Heart Disease Risk Factors Are:: Previous cardiac event Heart Disease Response Code:: Patient communicates acknowledgment Diabetes Patient Diabetes Risk Factors Are:: Elevated blood sugars Recommendations Include:: Maintain fasting blood sugars 70-110 md/dL, Maintain HgbA1c of 6% or less, Monitor blood sugar as prescribed, Diabetic dietary guidelines, Decrease/maintain body weight Diabetes:: Patient communicates acknowledgment Metabolic Syndrome Patient Metabolic Syndrome Risk Factors Are [3 of 5]:: Fasting blood sugar > 100 mg/dL, High triglyceride >150, Hypertension, Low HDL <40 [male] or < 50 [female] Recommendations Include:: Reinforce compliance to risk factor modifications, Patient is diabetic, Encouraged follow-up with Primary Care Physician Metabolic Syndrome Response Code:: Patient communicates acknowledgment Sedentary Patient Sedentary Risk Factors Are:: Lack of regular exercise Recommendations Include:: Discussed home walking program, Monitored Outpatient Cardiac Rehab - pt disabled due to spinal stenosis Stress Recommendations Include:: Identification of stressors, and assessment of coping skills, Stress management techniques Stress Response Code:: Patient communicates acknowledgment
[2019-10-25 14:05] LABS: ACT Activated Clotting Time 164 sec (74-137)
[2019-10-25] MEDS: hydrALAZINE 20 MG/ML Vial 10 MG IV (15:18)
--- NOTE | 2019-10-25 15:56 | CHAPLAIN ---
Type of Pastoral Visit _x__ Initial Visit ___ Follow-up Visit ___ On-call Visit ___ General Patient Visit ___ Spiritual Assessment ___ Family Conference ___ Bereavement ___ Rapid Response ___ Code Blue ___ Other (describe below) Pastoral Care Referral From _x__ Patient ___ Family ___ Nurse ___ Physician ___ Circuit Breaker Mechanic ___ Helper Maintenance Cleaning ___ Other (describe below) Sacrament/Intervention _x__ Active listening ___ Anointing ___ Orthodoxy ___ Bereavement ___ Communion _x__ Marycarmen exploration ___ _x__ Life review _x__ Prayer ___ Reconciliation ___ Sacrament of Sick _x__ Supportive presence ___ Wedding ___ Other (describe below) Pastoral Comments post heart cath in ICU; very talkative; pt gives life story and some thoughts about life in general and family; pt speaks of his own marycarmen and its value to him; pt identifies as Sabianist and welcomes spiritual care support
[2019-10-25 16:40] LABS: Bedside Glucose 119 mg/dL (70-110)
[2019-10-25] MEDS: traMADol 50 MG Tablet PO (18:05)
[2019-10-25] MEDS: hydrALAZINE 25 MG Tablet PO (21:02)
[2019-10-25] MEDS: Atorvastatin Calcium 80 MG Tablet PO (21:02)
[2019-10-25 21:21] LABS: Bedside Glucose 149 mg/dL (70-110)
[2019-10-25] MEDS: Ceftriaxone 1 GM/50 ML BAG IV (21:23)
--- NOTE | 2019-10-25 22:53 | NURSING ---
Pt calls out c/o feel like my insides are on fire. B/p found to be 76/69. Dr. Louis updated. Orders to give NS bolus 500 mls. Pt responding well to fluids. Current b/p 102/73. Pt states, I'm feeling better.
[2019-10-26] VITALS (13 sets, daily range): BP systolic 122–156; BP diastolic 82–97; PULSE 79–94; RESP 12–22; TEMP 36.3–36.7; O2SAT 92–98
--- NOTE | 2019-10-26 01:36 | EKG12_ITS ---
Test Reason : AM EKG Blood Pressure : / mmHG Vent. Rate : 077 BPM Atrial Rate : 077 BPM P-R Int : 162 ms QRS Dur : 084 ms QT Int : 382 ms P-R-T Axes : 053 053 042 degrees QTc Int : 432 ms Normal sinus rhythm Normal ECG When compared with ECG of 25-OCT-2019 22:28, MANUAL COMPARISON REQUIRED, DATA IS UNCONFIRMED Confirmed by LEXY SPENCER ([id number]), rewrite editor EZEQUIEL LUDWIG ([id number]) on 11/02/2019 11:30:18 AM Referred By: AUGUSTO Confirmed By:LEXY SPENCER
[2019-10-26 04:28] LABS: Hematocrit 46.9 % (40-54); Hemoglobin 15.1 g/dL (13.0-16.5); Mean Corp Hgb Conc 32.2 g/dL (32-36); Mean Corpuscular Hgb 30.1 pg (27.0-32.0); Mean Corpuscular Volume 93.6 fL (80-94); Mean Platelet Vol. 9.4 fl (6.2-12.0); Platelet Count 204 K/mm3 (150-450); RBC Distribution Width CV 13.7 % (11.6-14.6); RBC Distribution Width SD 46.1 fl (35.1-43.9); Red Blood Count 5.01 M/mm3 (4.6-6.2); White Blood Count 9.5 K/mm3 (4.4-11.0)
[2019-10-26 04:42] LABS: ALB/GLOB Ratio 0.9 RATIO (0.9-2.4); AST(SGOT) 25 U/L (15-37); Alanine Aminotransfer ALT/SGPT 42 U/L (16-61); Albumin, Serum 3.2 g/dL (3.2-5.0); Alkaline Phosphatase 91 U/L (45-117); Anion Gap 6 (5-15); BUN 21 mg/dL (7-18); BUN/Creat Ratio 11.6 RATIO (10-20); Calcium,Total 8.9 mg/dL (8.5-10.1); Chloride 106 mmol/L (98-107); Creatinine, Serum 1.81 mg/dL (0.70-1.30); EST Glomerular Filtration Rate 42 mL/min (>60); Est Glom Filt Rate - Afr Amer 51 mL/min (>60); Estimated Creatinine Clearance 54.57 ml/min; Globulin 3.5 g/dL (2.2-4.2); Glucose 171 mg/dL (74-106); Potassium 4.1 mmol/L (3.5-5.1); Protein, Total 6.7 g/dL (6.4-8.2); Sodium Level 139 mmol/L (136-145)
[2019-10-26] MEDS: traMADol 50 MG Tablet PO (06:20)
[2019-10-26 08:16] LABS: Bedside Glucose 147 mg/dL (70-110)
--- NOTE | 2019-10-26 08:45 | PN.CARD_ITS ---
Subjectve: Patient doing very well this morning, no further chest pain. Telemetry negative. Patient did have an episode of hypotension last evening which respo nded well to IV fluids, most likely result of hydralazine. Other than that he is doing well. Right groin is clean/dry/intact without evidence of thrills, bruits or hematoma. Hemoglobin and creatinine are within nominal limits. Creatinine is improved from 2.14-1.8. Objective: Vital Signs Temp Pulse Resp BP Pulse Ox 97.4 F L 81 17 142/93 H 95 10/26/19 08:00 10/26/19 08:00 10/26/19 08:00 10/26/19 08:00 10/26/19 08:00 Oxygen Delivery Method Room Air Weight: 215 lb 2.738 oz Body Mass Index (BMI) 28.2 Finger Stick Blood Glucose 186 Intake and Output for Last 24 Hours 10/24/19 10/25/19 10/26/19 23:59 23:59 23:59 Intake Total 2783.67 / 2783.67 2896.25 / 2896.25 Output Total 3100 / 3100 3125 / 3125 850 / 850 Balance -316.33 / -316.33 -228.75 / -228.75 -850 / -850 General: Awake, Alert, Oriented x 3 HEENT: PERRL, EOMI, Sclera Non Icteric Neck: Supple, Good ROM, No Lymph Node Enlargement Lungs: Clear to auscultation Cardiovascular: Regular Rhythm, Normal S1, Normal S2, No Murmurs, No Rubs, No Gallops Vascular: No Carotid Bruits, Normal Femoral Pulses, Normal Radial Pulses, Normal Dorsalis Pedal Pulse, Normal Posterior Tibial Pulses Abdomen: Bowel Sounds Present, Soft, Non Tender, No HSM, No Organomegaly Extremities: No Cyanosis, No Clubbing, No edema Neurological: No Focal Motor or Sensory Deficit 10/26/19 04:20: WBC 9.5, RBC 5.01, Hgb 15.1, Hct 46.9, MCV 93.6, MCH 30.1, MCHC 32.2, Plt Count 204, MPV 9.4 10/26/19 04:20: Sodium 139, Potassium 4.1, Chloride 106, Carbon Dioxide 27.0, Anion Gap 6, BUN 21 H, Creatinine 1.81 H, Est GFR (MDRD) Af Amer 51 L, Est GFR (MDRD) Non-Af 42 L, BUN/Creatinine Ratio 11.6, Glucose 171 H, Calcium 8.9, Total Bilirubin 0.20 Rhythm: EKG: ECHO: Stress Test: Cardiac Cath: PCI: CT Surgery: Holter monitor: EPS: PPM: CXR: Chest CT Scan: Medical Necessity - Tobacco Use Smoking Status: Current every day smoker Assessment/Plan 1. Coronary artery disease: No further anginal symptoms, telemetry negative. EKG shows normal sinus rhythm without evidence of any acute changes. Creatinine has improved from 2.14->1.8 with IV fluids. Right groin is clean/dry/intact. At this point I recommend continuing baby aspirin, Plavix. We will hold off on any further intervention of his LAD or diagonal system as his recent stress test showed no evidence of anterior ischemia and the patient symptoms are most likely from his significant narrowing in his mid right coronary artery. I recommended the patient proceed with cardiac rehab in 2 weeks time. In addition he will continue his antihypertensive medications including Coreg, Imdur, and amlodipine. Patient is not a good candidate for KALEN inhibitor's or ARB given his chronic renal insufficiency. We attempted to give him hydralazine last evening but unfortunately this dropped his blood pressure. We will adjust his Imdur upwards as best we can going forward to monitor his blood pressure. 2. Hyperlipidemia: Continue statin based medications. 3. Patient may be discharged home and follow-up with Dr. Suarez going forward. Thank you very much for the opportunity to participate in the cardiac care of your patient. Inpatient E&M: [id number] Subs Hosp L2
[2019-10-26] MEDS: Furosemide 20 MG Tablet PO (09:09)
[2019-10-26] MEDS: Carvedilol 25 MG Tablet PO (09:09)
[2019-10-26] MEDS: Escitalopram Oxalate 10 MG Tablet 5 MG PO (09:09)
[2019-10-26] MEDS: Isosorbide Mononitrate 30 MG Tablet PO (09:09)
[2019-10-26] MEDS: Aspirin E.C. 81 MG Tablet PO (09:09)
[2019-10-26] MEDS: Folic Acid/Vitamin B Comp W-C 1 Capsule 1 CAP PO (09:10)
[2019-10-26] MEDS: Clopidogrel Bisulfate 75 MG Tablet PO (09:10)
[2019-10-26] MEDS: Allopurinol 100 MG Tablet PO (09:10)
[2019-10-26] MEDS: amLODIPine 5 MG Tablet PO (09:10)
[2019-10-26] MEDS: Gabapentin 600 MG Tablet PO (09:10)
--- NOTE | 2019-10-26 09:45 | DCINST_ITS ---
- Discharge Diagnoses Current Active Problems: Current Active and Chronic Problems (Last Updated 10/25/19 @ 12:[address] Dionne Pierre MD) Unstable angina (Acute) You will use the following diet at home:: Cardiac Discharge Activity: - - Follow post-cath instructions. Call your doctor if your incision/area has: Continuous Slow Oozing, Sudden Increased Bleeding, Increased Pain/ Swelling, Increased Redness, Foul Smelling Discharge, Swelling at the incision site Call your doctor if you observe: Fever of 101 or Higher, Shortness of breath, Dizziness, Fainting spells, Chest pain Allergies/Adverse Reactions: Allergies sulfamethoxazole [From Bactrim] Allergy (Mild, Verified 09/13/19 17:11) Rash trimethoprim [From Bactrim] Allergy (Mild, Verified 09/13/19 17:11) Rash bupropion [From Wellbutrin] Adverse Reaction (Verified 09/13/19 17:11) Elevated BP Medications to take at Discharge Escitalopram Oxalate [Lexapro] 5 mg PO DAILY 04/21/15 Fish Oil/Dha/Epa [Fish Oil 1,200 mg Fish Oil] 1 ea PO DAILY 04/21/15 Allopurinol [Zyloprim] 100 mg PO DAILY 07/25/15 Aspirin E.C. [Ecotrin] 81 mg PO DAILY@0800 05/01/18 Atorvastatin Calcium [Lipitor] 80 mg PO QHS 05/01/18 B Complex W-C No.20/Folic Acid [Nephrocaps Softgel] 1 mg PO DAILY 05/01/18 Gabapentin [Neurontin] 600 mg PO BID 05/01/18 Hydrocodone/Acetaminophen [Hydrocodone-Acetamin 5-325 mg] 1 tab PO Q4H PRN PRN 05/01/18 Trimethoprim [Trimpex] 100 mg PO QODAY 05/01/18 Cholecalciferol (Vitamin D3) [Vitamin D3] 5,000 unit PO DAILY 05/07/19 Glimepiride 1 mg PO DAILY 06/05/19 furosemide 20 mg tablet 20 mg PO DAILY #30 tab 09/14/19 clopidogrel 75 mg tablet 75 mg PO DAILY #90 tab 09/30/19 carvedilol 25 mg tablet 25 mg PO BID #180 tab 10/01/19 isosorbide mononitrate 60 mg tablet,extended release 24 hr 60 mg PO DAILY #30 tab 10/01/19 Amlodipine [Norvasc] 5 mg PO DAILY #30 tab 10/26/19 The following prescriptions were given: Amlodipine [Norvasc] 5 mg PO DAILY #30 tab Transmission Status: Pending to [id number] Orders to be completed after discharge: Phase II, Outpatient Cardiac Rehab Location: None Selected Primary Care Physician: Brennan Ty MD [Primary Care Provider] - Please follow up with your Primary Care Physician in: 1 Week Test Results: Test results from this visit will be discussed in further detail at your follow- up appointment, if applicable. Please Follow Up With: Pascual Suarez MD When: 2 Weeks Proposed Discharge Date: 10/26/19
--- NOTE | 2019-10-26 10:00 | EKG12_ITS ---
Test Reason : EKGCHANGE Blood Pressure : / mmHG Vent. Rate : 077 BPM Atrial Rate : 077 BPM P-R Int : 146 ms QRS Dur : 080 ms QT Int : 358 ms P-R-T Axes : 019 042 060 degrees QTc Int : 405 ms Normal sinus rhythm Normal ECG When compared with ECG of 25-OCT-2019 12:34, MANUAL COMPARISON REQUIRED, DATA IS UNCONFIRMED Confirmed by LEXY SPENCER ([id number]), business editor EZEQUIEL LUDWIG ([id number]) on 11/02/2019 11:30:09 AM Referred By: CHASTITY Confirmed By:LEXY SPENCER
--- NOTE | 2019-10-26 11:24 | DS.PCM_ITS ---
<Halle Molina - Last Filed: 10/26/19 11:42> Discharge Date and Diagnosis Date of Admission: 10/24/19 Date of Discharge: 10/26/19 - Primary Discharge Diagnosis Acute Problems: 1. Unstable angina with history of CAD status post PTCA/HECTOR to mid RCA 2. Acute kidney injury on chronic kidney disease stage III 3. History of nonsustained ventricular tachycardia 4. Acute UTI 5. Hypertension 6. Hyperlipidemia 7. Tobacco dependence 8. Chronic back pain secondary to lumbar canal stenosis/sciatica/osteoarthritis 9. Depression - Secondary Discharge Diagnosis Chronic Problems: Chronic Problems (Last Updated 10/25/19 @ 12:[address] Dionne Pierre MD) Coronary artery disease (Chronic) Diabetes mellitus type II, controlled (Chronic) Essential hypertension (Chronic) History of left heart catheterization (Chronic) 09/29/[address] Suarez, 12/19/[address] Louis; both at [facility] Neurogenic bladder (Chronic) Chronic kidney disease, stage 3 (Chronic) History of coronary artery stent placement (Chronic 10/25/19) PCI-HECTOR-Mid Cx 09/29/16;Successful PTCA/HECTOR mid RCA with a 4.0 x 16 Promus Synergy 10/25/2019 Atherosclerosis of coronary artery of [place] heart without angina pectoris (Chronic) PCI-HECTOR-Mid Cx 09/29/16 NSVT (nonsustained ventricular tachycardia) (Chronic) Smoking addiction (Chronic) Hyperlipidemia (Chronic) Osteoarthritis (Chronic) Spinal stenosis of lumbar region (Chronic) Chronic radicular lumbar pain (Chronic) STEMI (ST elevation myocardial infarction) (Chronic) Sciatica (Chronic) Hospital Course and Treatment Imaging Results: Diagnostic Data Chest X-Ray 10/23/19 22:32 IMPRESSION: No acute cardiopulmonary findings. Negative for consolidation, atelectasis, pleural effusion or cardiomegaly. Negative for pulmonary venous congestion. Mild atherosclerotic changes of the aorta. Electronically Signed: Ana Steward MD at 23:08 EDT , Service support , Dr. suarez- cardiology Operations: None Procedures: Cardiac catheterization Summary of Care Provided: The patient is a 49 year old M admitted 10/24/2019 due to chest pain. 1. Unstable angina with history of CAD status post PCI-patient with NSTEMI September 2016 which required stenting with HECTOR to left circumflex. Patient underwent cardiac catheterization December 2017 which demonstrated mid LAD moderate luminal irregularities up to 50%, diagonal 180% stenosis. Cardiology consulted. Continue aspirin, statin, Plavix, beta-rachel. Patient underwent heart cath which demonstrated single-vessel CAD of the RCA status post PTCA/HECTOR to mid RCA. Follow-up with cardiology in 2 weeks. 2. Acute kidney injury on chronic kidney disease stage III-SOURAV resolved with gentle IV fluids. 3. History of nonsustained ventricular tachycardia 4. Acute UTI- neurogenic bladder-continue home self catheterization regimen. Associated frequent UTIs. Patient on chronic preventative antibiotic therapy with trimethoprim. Urinalysis shows 1+ bacteria. Culture growing beta strep 50-80,000 colony count and alpha hemolytic strep 50-80,000 colony count. IV Rocephin during admission. No leukocytosis. Afebrile. No urinary symptoms. DC on Keflex empirically to complete course. 5. Hypertension-stable, added on amlodipine 5 mg daily. On Carvedilol, Imdur. 6. Hyperlipidemia-continue statin. 7. Tobacco dependence-encourage smoking cessation. 8. Chronic back pain secondary to lumbar canal stenosis/sciatica/osteoarthritis- continue home gabapentin regimen. 9. Depression-continue home Lexapro regimen. General: Alert, Oriented x3, Cooperative HEENT: Atraumatic, PERRLA, EOMI, Normocephalic Neck: Supple, No JVD, Negative Carotid Bruits Lungs: Clear to auscultation, Normal air movement Cardiovascular: Regular rate, No murmurs Abdomen: Bowel Sounds Present, Soft, Non Tender, Non-Distended Extremities: No clubbing, No cyanosis, No edema, Capillary Refill Less than 3 Seconds Skin: No rashes, No breakdown Musculoskeletal: No Tenderness to Palpation of Joints or Extremities Neurological: Cranial nerves II-XII grossly intact, Neuro grossly intact Psych/Mental Status: Normal Affect, Appropriate Patient seen and examined prior to discharge. Physical assessment as noted above. Patient is stable for discharge with follow up recommendations as noted above. This patient was seen by LOTTIE Alvarenga under the supervision of Dr. Pierre. - Physical Exam Vitals/I&O's: Vital Signs Temp Pulse Resp BP Pulse Ox 97.6 F L 87 18 140/95 H 94 06/23/20 10:31 10/26/19 10:31 10/26/19 10:31 10/26/19 10:31 10/26/19 10:31 Oxygen Delivery Method Room Air Weight: 215 lb 2.738 oz Body Mass Index (BMI) 28.2 Finger Stick Blood Glucose 186 Intake and Output for Last 24 Hours 10/24/19 10/25/19 10/26/19 23:59 23:59 23:59 Intake Total 2783.67 / 2783.67 2896.25 / 2896.25 600 / 600 Output Total 3100 / 3100 3125 / 3125 850 / 850 Balance -316.33 / -316.33 -228.75 / -228.75 -250 / -250 Microbiology Past 72 Hours 10/23/19 22:21 Urine, Clean Catch Urine Culture - Preliminary Streptococcus group B Alpha Hemolytic Streptococcus Laboratory Results 10/25/19 12:05: Activated Clotting Time 219 H 10/25/19 12:43: POC Glucose 91 10/25/19 13:52: Activated Clotting Time 164 H 10/25/19 16:35: POC Glucose 119 H 10/25/19 20:59: POC Glucose 149 H 10/26/19 04:20: WBC 9.5, RBC 5.01, Hgb 15.1, Hct 46.9, MCV 93.6, MCH 30.1, MCHC 32.2, RDW Std Deviation 46.1 H, RDW Coeff of Akua 13.7, Plt Count 204, MPV 9.4 10/26/19 04:20: Sodium 139, Potassium 4.1, Chloride 106, Carbon Dioxide 27.0, Anion Gap 6, BUN 21 H, Creatinine 1.81 H, Estim Creat Clear Calc 54.57, Est GFR (MDRD) Af Amer 51 L, Est GFR (MDRD) Non-Af 42 L, BUN/Creatinine Ratio 11.6, Glucose 171 H, Calcium 8.9, Total Bilirubin 0.20, AST 25, ALT 42, Alkaline Phosphatase 91, Total Protein 6.7, Albumin 3.2, Globulin 3.5, Albumin/Globulin Ratio 0.9 10/26/19 08:06: POC Glucose 147 H Discharge Diet: Low fat/ Low Cholesterol Discharge Activity: - - Follow post-cath instructions. Call your doctor if your incision/area has: Continuous Slow Oozing, Sudden Increased Bleeding, Increased Pain/ Swelling, Increased Redness, Foul Smelling Discharge, Swelling at the incision site Call your doctor if you observe: Fever of 101 or Higher, Shortness of breath, Dizziness, Fainting spells, Chest pain Home Medications: Medications to take at Discharge Escitalopram Oxalate [Lexapro] 5 mg PO DAILY 04/21/15 Fish Oil/Dha/Epa [Fish Oil 1,200 mg Fish Oil] 1 ea PO DAILY 04/21/15 Allopurinol [Zyloprim] 100 mg PO DAILY 07/25/15 Aspirin E.C. [Ecotrin] 81 mg PO DAILY@0800 05/01/18 Atorvastatin Calcium [Lipitor] 80 mg PO QHS 05/01/18 B Complex W-C No.20/Folic Acid [Nephrocaps Softgel] 1 mg PO DAILY 05/01/18 Gabapentin [Neurontin] 600 mg PO BID 05/01/18 Hydrocodone/Acetaminophen [Hydrocodone-Acetamin 5-325 mg] 1 tab PO Q4H PRN PRN 05/01/18 Trimethoprim [Trimpex] 100 mg PO QODAY 05/01/18 Cholecalciferol (Vitamin D3) [Vitamin D3] 5,000 unit PO DAILY 05/07/19 Glimepiride 1 mg PO DAILY 06/05/19 furosemide 20 mg tablet 20 mg PO DAILY #30 tab 09/14/19 clopidogrel 75 mg tablet 75 mg PO DAILY #90 tab 09/30/19 carvedilol 25 mg tablet 25 mg PO BID #180 tab 10/01/19 Amlodipine [Norvasc] 5 mg PO DAILY #30 tab 10/26/19 Cephalexin [Keflex] 500 mg PO Q12 #10 cap 10/26/19 Isosorbide Mononitrate [Isosorbide Mononitrate ER] 30 mg PO DAILY #10 tab.er.24h 10/26/19 Following Prescrptions Were Given to Patient: Isosorbide Mononitrate [Isosorbide Mononitrate ER] 30 mg PO DAILY #10 tab.er.24h Cephalexin [Keflex] 500 mg PO Q12 #10 cap [id number] Amlodipine [Norvasc] 5 mg PO DAILY #30 tab Transmission Status: Received by [id number] Other Amb Orders: Phase II, Outpatient Cardiac Rehab Location: None Selected Primary Care Physician: Brennan Ty MD [Primary Care Provider] - Please follow up with your Primary Care Physician in: 1 Week Please Follow Up With: Pascual Suarez MD When: 2 Weeks Disposition: Home Minutes spent on discharge:: 35 Patient Condition:: Stable Medical Necessity - Tobacco Use Smoking Status: Current every day smoker Meaningful Use Info Meaningful Use Diagnoses (Choose all that apply): None applicable <Dionne Pierre - Last Filed: 10/26/19 12:39> Discharge Date and Diagnosis - Secondary Discharge Diagnosis Chronic Problems: Chronic Problems (Last Updated 10/25/19 @ 12:[address] Dionne Pierre MD) Coronary artery disease (Chronic) Diabetes mellitus type II, controlled (Chronic) Essential hypertension (Chronic) History of left heart catheterization (Chronic) 09/29/[address] Suarez, 12/19/[address] Louis; both at [facility] Neurogenic bladder (Chronic) Chronic kidney disease, stage 3 (Chronic) History of coronary artery stent placement (Chronic 10/25/19) PCI-HECTOR-Mid Cx 09/29/16;Successful PTCA/HECTOR mid RCA with a 4.0 x 16 Promus Synergy 10/25/2019 Atherosclerosis of coronary artery of [place] heart without angina pectoris (Chronic) PCI-HECTOR-Mid Cx 09/29/16 NSVT (nonsustained ventricular tachycardia) (Chronic) Smoking addiction (Chronic) Hyperlipidemia (Chronic) Osteoarthritis (Chronic) Spinal stenosis of lumbar region (Chronic) Chronic radicular lumbar pain (Chronic) STEMI (ST elevation myocardial infarction) (Chronic) Sciatica (Chronic) Hospital Course and Treatment Summary of Care Provided: Hospitalist note: Discharge summary above reviewed and I concur with the above discharge and treatment plan. Patient seen and examined on the day of discharge and appeared to be stable to be discharged home. He denied any more chest pain. Overnight, he had episode of hypotension which resolved quickly with IV fluids. Today, blood pressure stabilized. Patient was admitted because of chest pain and he was found to have findings consistent with unstable angina. He underwent cardiac catheterization and he was found to have 85% stenosis of the mid RCA, underwent successful PTCA/HECTOR to mid RCA. He was treated with aspirin, statins, Plavix, Coreg and isosorbide mononitrate. Yesterday, blood pressure was elevated and he was started on hydralazine but overnight, patient became hypotensive. Hydralazine discontinued. Patient was found to have acute kidney injury on top of stage III chronic kidney disease. This was treated with IV fluids and kidney function improved back to his baseline. He was treated for acute cystitis with IV Rocephin, urine culture revealed Streptococcus group B as well as alphahemolytic Streptococcus. He was discharged on Keflex to complete total of 5 days of treatment. Patient discharged home in a stable condition, started on Norvasc for uncontrolled hypertension, discharged on aspirin, statins, Plavix and Coreg as well as isosorbide mononitrate, continued on his previous home medications without any changes, recommended follow-up with PCP in 1 week, follow-up with cardiology in 2 weeks. - Physical Exam General: Alert, Oriented x3, Cooperative, No apparent distress. HEENT: Atraumatic, PERRLA, EOMI. Neck: Supple, No JVD, Negative Carotid Bruits, Trachea Midline, Thyroid Normal. Lungs: Clear to auscultation, Normal air movement, No rhonchi, No wheeze, No rales. Cardiovascular: Regular rate, Regular Rhythm, Normal S1, Normal S2, PMI Normal. Abdomen: Bowel Sounds Present, Soft, Non Tender, Non-Distended, No Hepato- splenomegaly. Extremities: No clubbing, No cyanosis, No edema Skin: No rashes, No breakdown Neurological: Cranial nerves are intact, neuro grossly intact Vital Signs are stable. This note was generated with [employer] dictation software. It may contain incorrect words, spelling, and punctuation that were not noted in checking the note before signing. - Physical Exam Vitals/I&O's: Vital Signs Temp Pulse Resp BP Pulse Ox 97.6 F L 87 18 140/95 H 94 10/26/19 10:31 10/26/19 10:31 10/26/19 10:31 10/26/19 10:31 10/26/19 10:31 Oxygen Delivery Method Room Air Weight: 215 lb 2.738 oz Body Mass Index (BMI) 28.2 Finger Stick Blood Glucose 186 Intake and Output for Last 24 Hours 10/24/19 10/25/19 10/26/19 23:59 23:59 23:59 Intake Total 2783.67 / 2783.67 2896.25 / 2896.25 600 / 600 Output Total 3100 / 3100 3125 / 3125 850 / 850 Balance -316.33 / -316.33 -228.75 / -228.75 -250 / -250 Microbiology Past 72 Hours 10/23/19 22:21 Urine, Clean Catch Urine Culture - Preliminary Streptococcus group B Alpha Hemolytic Streptococcus Laboratory Results 10/25/19 12:43: POC Glucose 91 10/25/19 13:52: Activated Clotting Time 164 H 10/25/19 16:35: POC Glucose 119 H 10/25/19 20:59: POC Glucose 149 H 10/26/19 04:20: WBC 9.5, RBC 5.01, Hgb 15.1, Hct 46.9, MCV 93.6, MCH 30.1, MCHC 32.2, RDW Std Deviation 46.1 H, RDW Coeff of Akua 13.7, Plt Count 204, MPV 9.4 10/26/19 04:20: Sodium 139, Potassium 4.1, Chloride 106, Carbon Dioxide 27.0, Anion Gap 6, BUN 21 H, Creatinine 1.81 H, Estim Creat Clear Calc 54.57, Est GFR (MDRD) Af Amer 51 L, Est GFR (MDRD) Non-Af 42 L, BUN/Creatinine Ratio 11.6, Glucose 171 H, Calcium 8.9, Total Bilirubin 0.20, AST 25, ALT 42, Alkaline Phosphatase 91, Total Protein 6.7, Albumin 3.2, Globulin 3.5, Albumin/Globulin Ratio 0.9 10/26/19 08:06: POC Glucose 147 H Disposition: Home Minutes spent on discharge:: 32 Patient Condition:: Stable Meaningful Use Info Meaningful Use Diagnoses (Choose all that apply): None applicable Inpatient E&M: 55209 Disch Hosp
--- NOTE | 2019-10-27 13:55 | CASEMGMT ---
CRISTIAN ORTIZ Discharge F/U Phone Call LACE: 14 Strata: 4 Discharge date: 10/26/2019 Call date: 10/27/2019 Call time: [id number] Admission dx: Unstable angina Pt states has been doing 'ok, so far so good' since discharge. Pt states no questions regarding discharge instructions or medications at this time. 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 Pt states no suggestions for [facility] at this time and states 'Your hospital has saved my life mulitiple times.' Pt voices no further questions/concerns/needs at this time. S[place]en CRISTIAN ORTIZ
== END 2019-10-26 10:53 | disposition home or self-care (01) | DRG 247 ==
LOC: ED 23:42 → PCU 10-24 01:26 → ICU 10-25 13:23
PROVIDERS: Family Medicine; Internal Medicine Cardiovascular Disease; Nurse Practitioner Family; Admitting Provider Hospitalist; Emergency Provider Emergency Medicine; PCP Family Medicine; Visit Provider Hospitalist
DX: I25.110 Atherosclerotic heart disease of native coronary artery with unstable angina pectoris (principal); N17.9 Acute kidney failure, unspecified; I13.0 Hypertensive heart and chronic kidney disease with heart failure and stage 1 through stage 4 chronic kidney disease, or unspecified chronic kidney disease; N30.00 Acute cystitis without hematuria; B95.1 Streptococcus, group B, as the cause of diseases classified elsewhere; B95.4 Other streptococcus as the cause of diseases classified elsewhere; I95.2 Hypotension due to drugs; T46.5X5A Adverse effect of other antihypertensive drugs, initial encounter; E11.22 Type 2 diabetes mellitus with diabetic chronic kidney disease; N18.3 Chronic kidney disease, stage 3 (moderate); F32.9 Major depressive disorder, single episode, unspecified; F41.9 Anxiety disorder, unspecified; G89.29 Other chronic pain; E78.5 Hyperlipidemia, unspecified; N31.9 Neuromuscular dysfunction of bladder, unspecified; M19.90 Unspecified osteoarthritis, unspecified site; M54.40 Lumbago with sciatica, unspecified side; M48.061 Spinal stenosis, lumbar region without neurogenic claudication; F17.210 Nicotine dependence, cigarettes, uncomplicated; I25.2 Old myocardial infarction; Z79.899 Other long term (current) drug therapy; Z79.82 Long term (current) use of aspirin; Z79.84 Long term (current) use of oral hypoglycemic drugs; Z79.02 Long term (current) use of antithrombotics/antiplatelets; Z87.440 Personal history of urinary (tract) infections; Z95.5 Presence of coronary angioplasty implant and graft
CPT/HCPCS: 36415; 71046; 80048; 80053; 80061; 81001; 82962; 83735; 84484; 85025; 85027; 85347; 85610; 85730; 87077; 87086; 87088; 87186; 92928; 93005; 93458; 99285; 99406; J7030; J7040; P9612; Q9967; A4216; C1725; C1769; C1874; C1887; C1894; C9600

== ENCOUNTER → 2019-11-02 07:52 | Outpatient (CLI) | payer MEDICARE, SELFPAY ==
[2018-07-02 13:03] VITALS: BMI 27.0
[2019-10-25 14:50] VITALS: BMI 28.2
--- NOTE | 2019-11-02 07:58 | PCM.CR.ITP ---
Diagnosis - General Information Admitting Diagnosis: PCI W/CORONARY STENTING Personal Learning Style:: Audio/Visual, Written Barriers to Learning: No Barriers Stage of change r/t lifestyle modifications:: Action Gave educational material for:: Treating Heart Disease, Emotions & Heart Disease, Stress Management & Relaxation, Sleep Disorders & Heart Disease, How The Heart Works, What it means to have Heart Disease, How Coronary Artery Disease is Diagnosed, Heart Procedures, What Heart Medications Do, Risk Factors & Modifications, Living an Active Life, Nutrition - Education/Goals Individual Counseling: Initial Assessment: Nicotine/Smoking, Abnormal Cholesterol Levels, High Blood Pressure, Diabetes, Metabolic Syndrome (as evidenced by 3 of 5 A-E below), A. Fasting Blood Sugar >100 - 186, C. High Triglycerides >150 - 707, Hypertension - 140/90, Low HDL <40/Males or <50/Females - RIP Cardiac Rehabilitation Goals: 1. Maintain the individual as the primary focus of care. 2. To improve the patient's quality of life. 3. Identification of cardiac risk factors and provide cardiac risk factor management. 4. Enhance the psychosocial status of the patient. 5. Reconditioning enough to allow the patient to resume customary activities. 6. Control symptoms of cardiac disease Personal Goals: Initial Assessment: Quit smoking (participate in smoking cessation - REFERRED TO SMOKING CESSATION COUNSELING, Improve management of stress and emotions, Improve energy level, Participate in home exercise program, Get back to work, or to resume activities faster, Improve knowledge of cardiac disease, Improve muscle strength and endurance, Improve diet and eating habits (eat healthier), Control risk factors (learn risk factor modification) Scale for measuring improvement of personal goals: Enter appropriate number in Comments. 2 = Unchanged. 3 = Slightly Better. 4 = Moderate Improvement. 5 = Met my Goal - Diagnosis & Disease Process Outcomes/Goals: Pt IDs own risk factors & lifestyle modifications by Session 10, Verbalizes symptoms of angina & response by session 3., Pt independently manages Plan/Interventions: Assist Pt to ID & engage in lifestyle modification to reduce CVD risk, Instruct on individual risk factors, Review symptoms of angina & emergency actions, Review secondary diagnosis & identify educational needs. - Safety Referral to Physical Therapy: No Referral to [facility] Case Management: No Fall Risk Assessed:: Yes Assistive Devices:: Cane Exercise - Initial Assessment - Visit Date of Eval: 11/02/19 Session #:: 0 - INITIAL EVALUATION Mets: Pre-: >5 METS for 30 minutes by discharge - Physician Prescribed Exercise Modalities: Treadmill, Rower, Airdyne, NuStep, SciFit Frequency: 3x/week for 12 weeks [36 sessions] Intensity: 60-80% of age predicted maximum heart rate reserve Current METSs:: 3.5 Target Heart Rate:: 109-143 Resting Blood Pressure: 140/90 EKG Type: NORMAL SINUS RHYTHM - Outcomes & Goals Goals:: Verbalizes understanding of THR, RPE & goal METS by session 6, Documents in home exercise log/reports 30 min aerobic 5 day/wk by DC, Demonstrates accurate pulse taking by DC - Intervention & Plan Exercise Program Goals: Instruct on personal THR & RPE, Instruct on MET level & personal MET goal, Show patient to take own pulse /validate performance until accurate, Instruct on home exercise - Physical Activity Home Exercise Physical Activity - Home Exercise: Safe Exercise, Warm-up, Self-monitoring, Cool-Down, Home Exercise > 30 min Daily, Sitting Time <3 hours/daily - Outcomes & Goals Outcomes/Goals: Demonstrates correct Warm-up/exercise Cool-Down (S3) if = 2.5 METs, Verbalizes symptoms of exercise intolerance by Session 3 (S3), Demonstrate safe equipment use (S3) & follows exercise prescrition (6) - Intervention & Plan Plan/Intervention: Instruct warm-up & cool-down if exercising at > 2 METs, Instruct on symptoms of exercise intolerance & actions to take, Instruct & monitor on saf, Assess intial functional capacity & safety risk Nutrition - Initial Assessment - Program Goals Nutrition Program Goals: LDL <100 optimal. 100 - 129 Near optimal. 130 - 159 Borderline High. 160 - 189 High. Total Cholesterol <200 desirable. 200 - 239 Borderline High. >/= 240 High. HDL < 40 Low >/=60 High. Triglycerides <150 desirable. <199 optimal. VlDL 5 - 40. HgbA1C <7%. BMI <25 Patient has diagnosis of Hyperlipidemia (ICD E78)?: Yes - Visit Date of Assessment:: 11/02/19 Session #:: 0 - INITIAL EVALUATION - Cholesterol/Lipids Triglycerides (mg/dL): 707 Total Cholesterol (mg/dL): 166 LDL Cholesterol (mg/dL): 0 - TNP HDL Cholesterol (mg/dL): 22 Determine presence & major risk factors that modify LDL goal: Cigarette smoking, Hypertension or hypertensive medication, Low HDL cholesterol <40 mg/dL*, Family history of premature CHD in Male < 55 years: female <65 yearsFa, Age men > 45 years; women >/= 55 years Outcomes/Goals: Pt IDs own risk factors & lifestyle modifications by Session 10, Verbalizes symptoms of angina & response by session 3., Pt independently manages Intervention/Plan: Advocate for lipid panel cholesterol medication if applicable, Instruct on personal lipid levels & lipid goals/NCEP guidelines, Instruct on cholesterol Referral to dietitian:: Yes - MEDICAL NUTRITION THERAPY - Diabetes (Other Core Measures) Diabetes Type: Diagnosis Type II ICD-10 E11 - HAS EXPERIENCED SOME EPISODES OF HYPOGLYCEMIA Non-Insulin Dependent?: Yes Do you monitor your blood sugar at home?: No - RARELY CHECKS AT HOME; WILLING TO CHECK PRE-POST EXERCISE Referral to Diabetic Clinic:: Yes - [facility] Outcomes/Goals:: Able to state symptoms of, Able to state, Able to state Intervention/Plan:: Instruct on, Refer to, Instruct on - Weight Mgt (Other Care) Not Applicable: Yes Height: 6 ft 1 in Weight:: 214 lb BMI: 28.2 Diagnosis Overweight/Obesity BMI> 30% ICD-10 E66: No Diagnosis High BMI/Morbid Obesity BMI> 35% ICD-10 Z68: No Outcomes/Goals: Pt sets, maintains & shows weight loss goal & trend during rehab Intervention/Plan: Instruct on ideal BMI & set weight loss goal w/patient, Assist pt to ID & incorporate diet changes for weight loss by S9, Refer to Structured Weight Loss program as appropriate, Encourage goal of using 250-300dcal per session for weight loss - Healthy Eating Habits Will attend diet classes:: Yes Outcomes/Goals:: Consume diet rich in vegs,fruits,whole grain/high fiber,fish,lean meat, Limit sat/trans fats,cholesterol & added salts & sugars Intervention/Plan:: Assess current eating habits - Education Gave educational materials for:: Signs & symptoms of hypoglycemia, Signs & symptoms of hyperglycemia, Relate diabetes to coronary artery disease, Healthy eating Medical - Initial Assessment - Visit Date of Eval: 11/02/19 Session #:: 0 - INITIAL EVALUATION - Medication Compliance Preventative Medication(s):: Aspirin, Clopidogrel/P2Y12 inhibit, Statin/lipid, Beta rachel H/O mental health issues: depression, anxiety, or addiction?: Yes Doesn?t believe in the benefits of treatment?: No Believes medications are unnecessary or harmful?: No Has a concern about medication side effects?: No Expresses concern over the cost of medications?: No Outcomes/Goals: Verbalizes medications,desired effect & common side effects @ DC, Pt self-reports following medication regimen, Keeps card in wallet w/medications listed by DC Interventions/plans: Instruct on medication effects & side effects, Review medication list w/patient every two weeks, Instruct importance of taking meds as ordered & assist problem solving - Tobacco Use Tobacco Use: Cigarettes - ORIGINALLY 2 PACKS PER DAY DOWN TO 0.5 PER DAY NOW How many cigarettes do you smoke per day?: 6 Years Smokin Do you use smokeless tobacco?: No Outcomes/Goals: Smoking cessation achieved or maintained by discharge, Identify aids/strategies for achieving smoking cessation by session 6 Interventions/plan: Instruct on effects of smoking & provide smoking cessation resource, Assist pt to set quit date & provide encouragement, Assist pt to develop strategies to achieve/maintain quit date, Assist pt w/nicotine replacement & medication for cessation success - Hypertension Hypertension Diagnosis:: Hypertension ICD-10 I10 Resting Blood Pressure:: 140/90 [place] [employer] Hypertension Guidelines: [place] [employer] Hypertension Guidelines. Normal BP Less than 120/80. Elevated BP 120/80. Hypertension Stage 1: BP 130-139/80-89. Hypertesnion Stage 2: BP 140 or higher/90 or higher. Hypertension Crisis: BP higher than 180/120 Peak Exercise Blood Pressure:: 140/90 Outcomes/Goals: Able to verbalize/achieve optimal blood pressure <130/80, Incorporates diet changes & exercise for blood pressure control by DC Interventions/plan: Instruct on optimal blood pressure, hypertension & medications, Instruct on effects of sodium, alcohol, stress, exercise &hypertension - Tobacco Cessation Referral Smoking Cessation Referral:: Yes Individual Education/Counseling:: No Education Schedule Given:: Yes Psychosocial - Initial Assess - VIsit Date of Eval: 11/02/19 Session #:: 0 - INITIAL EVALUATION Not Applicable: Yes History of previous Mental disease:: Yes History of Emotional Disorders: Depression, H/O Mental disease - Target Goals Target Goals: Assess presence or absence of depression. Using a valid screening tool, maximizes coping skills. Positive support system - Psychosocial Test Tool Used:: Magalyans Baron QOL Cardiac, PHQ-9 Questionnaire phq-9 Severity: Severity. 1-4 Minimal Depression. 5-9 Mild Depression. 10-14 Moderate Depression. 15-19 Moderately Sever Depression. 20-27 Severe Depression. Rule: - Outcomes/Goals: See list Psychosocial Outcomes/Goals:: ID's personal stressors & 2 strategies to manage stress by discharge - Intervention/Plan: See List Interventions/Plan:: Assess stressors,coping strategies & signs of derpression on admission, Instruct/assist pt to develop coping & personal stress Mgt strategies, Instruct patient to recognize signs & symptoms of depression, Instruct patient to recog Patient Health Questionnaire Initial Assessment 1. Little interest or pleasure in doing things: Nearly every day 2. Feeling down, depressed, or hopeless: Nearly every day 3. Trouble falling or staying asleep, or sleeping too much: Nearly every day 4. Feeling tired or having little energy: Nearly every day 5. Poor appetite or overeating: Nearly every day - OVEREATING 6. Feeling bad about yourself -- or that you are a failure or have let yourself or your family down: Nearly every day 7. Trouble concentrating on things, such as reading the newspaper or watching television: Nearly every day 8. Moving or speaking so slowly that other people could have noticed. Or the opposite - being so fidgety or restless that you have been moving around a lot more than usual: Nearly every day - MOIVE SLOWLY DUE TO NEUROPATHY, LUMBAR PAIN, USTEADINESS AMBULATING 9. Thoughts that you would be better off , or of hurting yourself in some way: Nearly every day How difficult have these problems made it for you to do your work, take care of things at home, or get along with other people?: Very difficult - PATIENT DENIES SUICIDAL THOUGHTS, HAS HAD PREVIOUS PROFESSIONAL COUNSELING AND IS ON ANTI-DEPRESSANTS Total Score: 27 JOHNNY-[id number] SV Test - Statements CAD is a disease of the arteries in the heart: False Examples of risk factors for heart disease: True Angina is chest pain or discomfort: True The benefits of resistance training include: True Eating more meat and dairy products: False Anti-platelet medications such as aspirin are important: True The only effective way to manage stress: False An exercise warm-up slowly increases heart rate: I Don't Know Prepared, processed foods usually have high sodium: True Depression is common after a heart attack: True The statin medications lower cholesterol: True To control blood pressure, lower the amount of sodium: True If someone gets chest discomfort during walking: False Transfats are partially hydrogenated vegetable oils: I Don't Know Sleep apnea that is not treated increases the risk: I Don't Know To control cholesterol, one should become a vegetarian: False Someone knows if he/she is exercising at the right level: True Diabetes cannot be prevented with exercise & health eating: False Stress is a large risk for heart attack: True A diet that can help lower blood pressure is rich in: True - Total Score Total Correct Responses: 17 Self-Efficacy Initial Assessment We would like to know how confident you are in doing certain activities. Please select your confidence level for:: Select your confidence level for the following using the scale 1-10 where 1 is not at all confident and 10 is totally confident. Your score is the average of all 6 responses. Fatigue: How confident are you that you can keep the fatigue caused by your disease from interfering with the things you want to do? Select Number: 1 Physical Discomfort or Pain: How confident are you that you can keep the physical discomfort or pain of your disease from interfering with the things you want to do? Select Number: 1 Emotional Distress: How confident are you that you can keep the emotional distress caused by your disease from interfering with the things you want to do? Select Number: 1 Other Symptoms or Health Problems: How confident are you that you can keep other symptoms or health problems from interfering with the things you want to do? Select Number: 1 Different Tasks and Activities: How confident are you that you can do the different tasks and activities needed to manage your health condition so as to reduce your need to see a doctor? Select Number: 3 Medication: How confident are you that you can do things other than just taking medication to reduce how much your illness affects your everyday life? Select Number: 2 Total Score:: 1 Nutrition Survey - Nutrition Survey Instructions Scoring Instructions: Scoring is as follows: Yes = 1 points. No = 0 point. Patient score that is >/=12 is considered to be at potential nutritional risk and could benefit from a referral to a registered dietitian. - Nutrition Survey Initial Have you lost >10 lbs over the past 2 months without trying?: No Are you following a special diet at home for diabetes, low fat, or low salt?: Yes Are you interested in meeting with a dietitian for help understanding your diet?: Yes Do you eat less than 3 meals a day?: No Do you eat fatty meats (tillman, sausage, ribs, etc), fried foods, desserts, large amounts of salad dressings, margarine, butter, or cheese most days?: No Do you have food allergies? [Enter types in comment field]: No Do you eat in restaurants more than 3 times a week?: No Do you season food with salt, seasoning salt, or garlic salt?: Yes Do you used canned, boxed, frozen meals, or soups, seasoning packets?: Yes Total Score:: 4
--- NOTE | 2019-11-02 07:58 | PCM.CR.HP2 ---
CR - History & Physical - General Arrival date:: 11/02/19 Arrival time:: 08:00 Date of Referral:: 10/25/19 Date of CR Evaluation:: 11/02/19 Referring Physician: DR. LEXY SUAREZ Primary Diagnosis: PCI W/CORONARY STENTING - History of Present Cardiac Event Onset Date: Enter Onset Date of cardiac illnesses in Comment field below PTCA or coronary stenting:: Yes - 10/25/2019 Type of Symptoms:: CHIEF COMPLAINT CHEST PAIN Interventions with present event:: HEART CATH SUBSEQUENT PCI INTERVENTION W/COROANRY STENT Were there any complications?: NONE - Medications Home Medications: Ambulatory Orders Medication Instructions Recorded Escitalopram Oxalate [Lexapro] 5 mg PO DAILY 04/21/15 Fish Oil/Dha/Epa [Fish Oil 1,200 1 ea PO DAILY 04/21/15 mg Fish Oil] Allopurinol [Zyloprim] 100 mg PO DAILY 07/25/15 Aspirin E.C. [Ecotrin] 81 mg PO DAILY@0800 05/01/18 Atorvastatin Calcium [Lipitor] 80 mg PO QHS 05/01/18 B Complex W-C No.20/Folic Acid 1 mg PO DAILY 05/01/18 [Nephrocaps Softgel] Gabapentin [Neurontin] 600 mg PO BID 05/01/18 Hydrocodone/Acetaminophen 1 tab PO Q4H PRN PRN 05/01/18 [Hydrocodone-Acetamin 5-325 mg] Trimethoprim [Trimpex] 100 mg PO QODAY 05/01/18 Cholecalciferol (Vitamin D3) 5,000 unit PO DAILY 05/07/19 [Vitamin D3] Glimepiride 1 mg PO DAILY 06/05/19 furosemide 20 mg tablet 20 mg PO DAILY #30 tab 09/14/19 clopidogrel 75 mg tablet 75 mg PO DAILY #90 tab 09/30/19 carvedilol 25 mg tablet 25 mg PO BID #180 tab 10/01/19 Amlodipine [Norvasc] 5 mg PO DAILY #30 tab 10/26/19 Cephalexin [Keflex] 500 mg PO Q12 #10 cap 10/26/19 Isosorbide Mononitrate [Isosorbide 30 mg PO DAILY #10 tab.er.24h 10/26/19 Mononitrate ER] - Allergies Allergies/Adverse Reactions: Allergies sulfamethoxazole [From Bactrim] Allergy (Mild, Verified 09/13/19 17:11) Rash trimethoprim [From Bactrim] Allergy (Mild, Verified 09/13/19 17:11) Rash bupropion [From Wellbutrin] Adverse Reaction (Verified 09/13/19 17:11) Elevated BP - Sleep Disorder Evaluation Hx of Sleep Apnea: Yes Do you snore loudly (louder than talking or can be heard through closed doors)?: Yes Do you often feel tired/ fatigued/ sleepy during daytime?: No Has anyone observed you stop breathing during sleep?: No History of Hypertension (for STOP score): Yes - SLEEP DISORDERED BREATHING STOP Results: Positive Advanced Directives - Advanced Directives 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 Living Will: No Advance Directives Information Provided: Yes Advance Directives on File: No DNR Order?:: No - MOLST See MOLST form: No Past Medical History - Past Medical Illness Medical History: Past Medical History (Last Updated 11/02/19 @ 08:08 by [employer], MORTGAGE LOAN COORDINATOR, COLOR PRINTER OPERATOR, BS) Diabetes mellitus type II, controlled (Chronic) E11.9 Essential hypertension (Chronic) I10 Neurogenic bladder (Chronic) N31.9 Chronic kidney disease, stage 3 (Chronic) N18.3 Atherosclerosis of coronary artery of [place] heart without angina pectoris (Chronic) I25.10 PCI-HECTOR-Mid Cx 09/29/16 NSVT (nonsustained ventricular tachycardia) (Chronic) I47.2 Smoking addiction (Chronic) F17.200 Hyperlipidemia (Chronic) E78.5 Osteoarthritis (Chronic) M19.90 Spinal stenosis of lumbar region (Chronic) M48.06 Chronic radicular lumbar pain (Chronic) M54.16, G89.29 STEMI (ST elevation myocardial infarction) (Chronic) Sleep-disordered breathing G47.30 - Past Surgical History Surgical History: Past Surgical History (Last Updated 10/25/19 @ 12:56 by Elaina Albert) History of left heart catheterization (Chronic) Z98.890 09/29/[address] Suarez, 12/19/[address] Louis; both at [facility] History of coronary artery stent placement (Chronic) Onset Date: 10/25/19 Z95.5 PCI-HECTOR-Mid Cx 09/29/16;Successful PTCA/HECTOR mid RCA with a 4.0 x 16 Promus Synergy 10/25/2019 History of renal stent Z98.890 ileoconduit placement percutaneous nephrostomy urethral stricture surgery urinary tract diverson Surgical History: - - Family History Summary Family History: Family History (Last Reviewed 10/24/19 @ 05:[address] 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 Left click = Reports ([place]) Review of Present Symptoms: Reports: Shortness of Breath with Exertion - OCASIONALLY, NOTHING THAT IS PROBLEMATIC, Angina - HAD ANGINA PRETTY REGULAR PRIOR TO THIS RECENT STENT., Fatigue, Heart Arrhythmia/Irregularities - H/O UNSTUSTAINED V-TACH, Appetite - Normal - BETTER THAN NORMAL, GENERALLY EATS WELL., Appetite - Special Diet. Denies: Dizziness/Lightheadedness - DO OCCASIONALLY GET THIS THROUGHOUT THE DAY, BUT NOTHING CURRENTLY, Sleep - Normal - TRY TO FOLLOW A LOW-SODIUM, LOW-FAT, LOW CHOLESTEROL DIABETIC DIET. TRIES TO WATCH WHAT I EAT REGULARLY., Sexual Changes - Pain Is Patient Pain Free?: Yes Pain Location: none, back - H/O LUMBAR STENOSIS, HERNIATED DISC, RECENT BONE SPURS IN THE LUMBAR REGION. HAS SEEN DR. MUNOZ [facility] PAST FOR LUMBAR INJECTIONS. Risk Factor Assessment - Chief Complaint Chief Complaint: PATIENT IS A 49 YR OLD MALE OF DR. LEXY SUAREZ WHO PRESENTST O CARDIAC REHAB TODAY FOLLOWING [facility]ENTR PCI INTERVENTION W/CORONARY STENTING. PATIENT HAS PREVIOUS H/O CAD WITH PREVIOUS STEMI AND STENTING PROCEDURES IN THE PAST. HE HAS DONE CARDIAC REHAB BEFORE RELATED TO THOSE INCIDENTS. - Vital Signs Temperature: 97.3 F Respiratory Rate: 18 Pulse Ox: 94 Blood Pressure: 140/90 Nailbeds:: PINK - Pulse Pulse Rate: 87 Pulse Rhythm: Regular - Hypertension Blood Pressure Sitting - Left Arm: 140/90 - Blood Cholesterol/Lipids Total Cholesterol (mg/dL) Goal = less than 200 mg/dL: 166 HDL Cholesterol (mg/dL) Goal = less than 40 mg/dL: 22 LDL Cholesterol (mg/dL) Goal = less than 70 mg/dL: 0 - TNP Triglycerides (mg/dL) Goal = less than 150 mg/dL: 707 - Diabetes Diabetic History: Type II, Medication Dependent, Insulin Dependent - Obesity Height: 6 ft 1 in Weight:: 214 lb Weight in Pounds: 214.0 lbs Weight Source: Stated by Patient Body Mass Index (BMI): 28.2 Nutritional Referral for Obesity: No - Risk Stratification Risk Guidelines: Lowest Risk: Risk Factor for Obesity - OVERWEIGHT BMI 28%, Moderate Risk: Risk Factor for Diabetes - GLUCOSE 186; NO RECENT A1C, Risk Factor for Hypertension - 140/90 NOT WELL CONTROLLED, Risk Factor for Depression, Highest Risk: Risk Factor for Smoking, Risk Factor for Dyslipidemia - For Smoking Smoking Risk Guidelines: Smoking Low Risk: None or quit greater than 6 months ago. Smoking Moderate Risk: Smoker or quit 6 months or less ago. Smoking High Risk: Smoker - For Dyslipidemia Dyslipidemia Risk Guidelines: Low Risk: Moderate Risk: High Risk: 15-25% fat 25.1-29% fat >/= 30% fat. <7% sat fat 7-9% sat fat >9% sat fat. <150 mg chol 150-299 mg chol >/= 300 mg chol. LDL <100 LDL 100-129 LDL >/= 130. Chol/HDL ratio <5.0 Chol/HDL ratio 5.0-6.0 Chol/HDL ratio >6.0. Triglycerides <100 Triglycerides 100-149 Triglycerides >/= 150 - For Diabetes Mellitus Diabetes Risk Guidelines: Diabetes Low Risk: HgA1c <6.5% and/or FBG <120. Diabetes Moderate Risk: HgA1c 6.6-7.9% and/or FBG 120-180. Diabetes High Risk: HgA1c >/= 8% and/or FBG >180 - For Obesity/Overweight Obesity/Overweight Risk Guidelines: Obesity Low Risk: BMI <25.0. Obesity Moderate Risk: BMI 25-29.9. Obesity High Risk: BMI >/= 30.0 - For Hypertension Hypertension Risk Guidelines: Hypertension Low Risk: Systolic <120 and Diastolic <80. Hypertension Moderate Risk: Systolic 120-139 and Diastolic 80-89. Hypertension High Risk: Systolic >/= 140 and Diastolic >/= 90 - For Sedentary Lifestyle Sedentary Lifestyle Risk Guidelines: Sedentary Lifestyle Low Risk: >/= 1,500 kcal/week. Sedentary Lifestyle Moderate Risk: 700-1,499 kcal/week. Sedentary Lifestyle High Risk: < 700 kcal/week - For Depression Depression Risk Guidelines: Depression Low Risk: Not clinically depressed. Depression Moderate Risk: Mildly depressed. Depression High Risk: Clinically depressed - Family History Family History: Family History (Last Reviewed 10/24/19 @ 05:[address] Manolo Thao MD) Grandfather CAD (coronary artery disease) Motivation - Motivation to Participate On a scale of 1 to 10, how prepared are you to commit to attending program?: 10 What do you see as barriers to successfully being able to complete the program?: LUMBAR H/O AND SCIATIC What do you see as the benefits of succesfully completing the program? In other words, what do you hope to get out of participating in the program?: HEALTHIER Do you have a spouse or signficant other, family or friends who will help support you to complete the program?: YES
[2019-11-02 08:35] VITALS: BP 140/90; PULSE 87; RESP 18; TEMP 36.3; O2SAT 94; BMI 28.2
[2019-11-02 09:11] VITALS: BP 140/90; BMI 28.2
== END ==
PROVIDERS: PCP Family Medicine; Referring Provider Internal Medicine Cardiovascular Disease; Visit Provider Internal Medicine Cardiovascular Disease
DX: N18.3 Chronic kidney disease, stage 3 (moderate) (principal); E78.5 Hyperlipidemia, unspecified; I10 Essential (primary) hypertension; E11.9 Type 2 diabetes mellitus without complications; Z98.890 Other specified postprocedural states

== ENCOUNTER 2019-11-17 09:58 | Outpatient (RCR) | payer MEDICARE, SELFPAY ==
[2018-07-02 13:03] VITALS: BMI 27.0
[2019-10-25 14:50] VITALS: BMI 28.2
[2019-11-02 08:35] VITALS: BMI 28.2
[2019-11-02 09:11] VITALS: BMI 28.2
== END 2019-12-03 23:59 ==
LOC: NS 09:58
PROVIDERS: PCP Family Medicine; Visit Provider Family Medicine
DX: Z71.3 Dietary counseling and surveillance (principal); E11.9 Type 2 diabetes mellitus without complications
CPT/HCPCS: 93798; G0108

== ENCOUNTER 2019-12-03 13:00 | Outpatient (RCR) | payer MEDICARE, SELFPAY ==
[2019-11-02 08:35] VITALS: BMI 28.2
[2019-11-02 09:11] VITALS: BMI 28.2
== END 2019-12-03 23:59 ==
LOC: CR 13:00
PROVIDERS: PCP Family Medicine; Referring Provider Internal Medicine Cardiovascular Disease; Visit Provider Internal Medicine Cardiovascular Disease
DX: I25.10 Atherosclerotic heart disease of native coronary artery without angina pectoris (principal); Z95.5 Presence of coronary angioplasty implant and graft
CPT/HCPCS: 93798

== ENCOUNTER 2019-12-29 11:30 | Outpatient (RCR) | payer MEDICARE, SELFPAY ==
[2019-11-02 08:35] VITALS: BMI 28.2
[2019-11-02 09:11] VITALS: BMI 28.2
== END 2020-01-03 23:59 ==
LOC: DC 11:30
PROVIDERS: PCP Family Medicine; Visit Provider Family Medicine
DX: Z71.3 Dietary counseling and surveillance (principal); E11.9 Type 2 diabetes mellitus without complications
CPT/HCPCS: 97802; G0108

== ENCOUNTER 2019-12-31 13:00 | Outpatient (RCR) | payer MEDICARE, SELFPAY ==
[2019-11-02 08:35] VITALS: BMI 28.2
[2019-11-02 09:11] VITALS: BMI 28.2
--- NOTE | 2019-12-30 11:15 | CR.ITP_ITS ---
Exercise - 60-day Assessment - Visit Date of Eval: 12/30/19 Session #:: 21 - Physician Prescribed Exercise Modalities: Treadmill, NuStep, SciFit Frequency: 3x/week for 12 weeks [36 sessions] Intensity: 60-80% of age predicted maximum heart rate reserve Current METSs:: 4.0 INCREASE FROM 3.5 Target Heart Rate:: 109-143 Current RPE:: 12-13 Maximum Excercise HR:: 110 Resting Blood Pressure: 126/78 Maximum Exercise Blood Pressure: 144/90 EKG Type: NSR TO SINUS TACH W/OUT ECTOPY. - Outcomes & Goals Goals:: Verbalizes understanding of THR, RPE & goal METS by session 6, Documents in home exercise log/reports 30 min aerobic 5 day/wk by DC, Demonstrates accurate pulse taking by DC - Intervention & Plan Exercise Program Goals: Instruct on personal THR & RPE, Instruct on MET level & personal MET goal, Show patient to take own pulse /validate performance until accurate, Instruct on home exercise - 30-day Reassessments 30 day Reassessments:: Progressing - Physical Activity Home Exercise Physical Activity - Home Exercise: Safe Exercise, Warm-up, Self-monitoring, Cool-Down, Home Exercise > 30 min Daily, Sitting Time <3 hours/daily - Outcomes & Goals Outcomes/Goals: Demonstrates correct Warm-up/exercise Cool-Down (S3) if = 2.5 METs, Verbalizes symptoms of exercise intolerance by Session 3 (S3), Demonstrate safe equipment use (S3) & follows exercise prescrition (6) - Intervention & Plan Plan/Intervention: Instruct warm-up & cool-down if exercising at > 2 METs, Instruct on symptoms of exercise intolerance & actions to take, Instruct & monitor on saf, Assess intial functional capacity & safety risk - 30-day Reassessments 30 day Reassessments:: Progressing Nutrition - 60-Day Assessment - Program Goals Nutrition Program Goals: LDL <100 optimal. 100 - 129 Near optimal. 130 - 159 Borderline High. 160 - 189 High. Total Cholesterol <200 desirable. 200 - 239 Borderline High. >/= 240 High. HDL < 40 Low >/=60 High. Triglycerides <150 desirable. <199 optimal. VlDL 5 - 40. HgbA1C <7%. BMI <25 Patient has diagnosis of Hyperlipidemia (ICD E78)?: Yes - Visit Date of Assessment:: 12/30/19 Session #:: 21 - Cholesterol/Lipids Triglycerides (mg/dL): 707 - 10/25/19 Total Cholesterol (mg/dL): 166 HDL Cholesterol (mg/dL): 22 Determine presence & major risk factors that modify LDL goal: Cigarette smoking, Hypertension or hypertensive medication, Low HDL cholesterol <40 mg/dL*, Age men > 45 years; women >/= 55 years Outcomes/Goals: Pt IDs own risk factors & lifestyle modifications by Session 10, Verbalizes symptoms of angina & response by session 3., Pt independently manages Intervention/Plan: Instruct on personal lipid levels & lipid goals/NCEP guidelines, Instruct on cholesterol Referral to dietitian:: Yes 30-day Reassessments:: Progressing - Diabetes (Other Core Measures) Diabetes Type: Diagnosis Type II ICD-10 E11 Hgb A1C (4.2 -6.3): 171 Insulin dependent injection/pump?: Yes Non-Insulin Dependent?: Yes Do you monitor your blood sugar at home?: Yes Referral to Diabetic Clinic:: Yes Outcomes/Goals:: Able to state symptoms of, Able to state, Able to state Intervention/Plan:: Instruct on, Refer to, Instruct on 30-day Reassessments:: Progressing - Weight Mgt (Other Care) Not Applicable: Yes Height: 6 ft 1 in Weight:: 217 lb BMI: 28.6 Diagnosis Overweight/Obesity BMI> 30% ICD-10 E66: No Diagnosis High BMI/Morbid Obesity BMI> 35% ICD-10 Z68: No Outcomes/Goals: Pt sets, maintains & shows weight loss goal & trend during rehab Intervention/Plan: Instruct on ideal BMI & set weight loss goal w/patient 30 day Reassessments:: Progressing - Healthy Eating Habits Will attend diet classes:: Yes Outcomes/Goals:: Consume diet rich in vegs,fruits,whole grain/high fiber,fish,lean meat, Limit sat/trans fats,cholesterol & added salts & sugars Intervention/Plan:: Assess current eating habits 30-day Reassessments:: Progressing - Education Gave educational materials for:: Signs & symptoms of hypoglycemia, Signs & symptoms of hyperglycemia, Relate diabetes to coronary artery disease, Healthy eating Medical- 60-Day Assessment - Visit Date of Eval: 12/30/19 Session #:: 21 - Medication Compliance Preventative Medication(s):: Aspirin, Clopidogrel/P2Y12 inhibit, Statin/lipid, Beta rachel H/O mental health issues: depression, anxiety, or addiction?: Yes Doesn?t believe in the benefits of treatment?: No Believes medications are unnecessary or harmful?: No Has a concern about medication side effects?: No Expresses concern over the cost of medications?: No Outcomes/Goals: Verbalizes medications,desired effect & common side effects @ DC, Pt self-reports following medication regimen, Keeps card in wallet w/medications listed by DC Interventions/plans: Instruct on medication effects & side effects, Review medication list w/patient every two weeks, Instruct importance of taking meds as ordered & assist problem solving 30-day Reassessments:: Progressing - Tobacco Use Tobacco Use: Cigarettes How long ago did you quit using tobacco products?: Less than 6 months ago Do you use smokeless tobacco?: No Outcomes/Goals: Smoking cessation achieved or maintained by discharge, Identify aids/strategies for achieving smoking cessation by session 6 Interventions/plan: Instruct on effects of smoking & provide smoking cessation resource, Assist pt to set quit date & provide encouragement, Assist pt to develop strategies to achieve/maintain quit date, Assist pt w/nicotine replacement & medication for cessation success 30-day Reassessments:: Progressing - Hypertension Hypertension Diagnosis:: Hypertension ICD-10 I10 - 126/78 Resting Blood Pressure:: 126/78 - CONTROLLED W/MEDICATIONS [place] [employer] Hypertension Guidelines: [place] [employer] Hypertension Guidelines. Normal BP Less than 120/80. Elevated BP 120/80. Hypertension Stage 1: BP 130-139/80-89. Hypertesnion Stage 2: BP 140 or higher/90 or higher. Hypertension Crisis: BP higher than 180/120 Peak Exercise Blood Pressure:: 144/90 Outcomes/Goals: Able to verbalize/achieve optimal blood pressure <130/80, Incorporates diet changes & exercise for blood pressure control by DC Interventions/plan: Instruct on optimal blood pressure, hypertension & medications, Instruct on effects of sodium, alcohol, stress, exercise &hypertension 30 day Reassessments:: Progressing - Tobacco Cessation Referral Smoking Cessation Referral:: Yes Individual Education/Counseling:: No Education Schedule Given:: Yes Psychosocial - 60-Day Assess - VIsit Date of Eval: 12/30/19 Session #:: 21 Not Applicable: No History of previous Mental disease:: Yes History of Emotional Disorders: Anxious, Depression, Suicidal Tendencies Self-reported stressors: Medical/Health, Recent Illness - Target Goals Target Goals: Assess presence or absence of depression. Using a valid screening tool, maximizes coping skills. Positive support system - Psychosocial Test Tool Used:: Renee Draper QOL Cardiac, PHQ-9 Questionnaire phq-9 Severity: Severity. 1-4 Minimal Depression. 5-9 Mild Depression. 10-14 Moderate Depression. 15-19 Moderately Sever Depression. 20-27 Severe Depression. Rule: - Referral to Behavioral Health PS - Interventions: Yes Attend Stress Management Classes, No Referral to Behavioral Health if PHQ-9 score >9: - PATIENT SEEING PROFESSIONAL COUNSELOR, No Referral to [facility], No Referral to Physician if PHQ-9 if score is 5-9: - Outcomes/Goals: See list Psychosocial Outcomes/Goals:: ID's personal stressors & 2 strategies to manage stress by discharge - Intervention/Plan: See List Interventions/Plan:: Assess stressors,coping strategies & signs of derpression on admission, Instruct/assist pt to develop coping & personal stress Mgt strategies, Instruct patient to recognize signs & symptoms of depression, Instruct patient to recog - 30-day Reassessments: 30 day Reassessments:: Progressing Patient Health Questionnaire 60-Day Re-eval Assessment 1. Little interest or pleasure in doing things: Nearly every day 2. Feeling down, depressed, or hopeless: Nearly every day 3. Trouble falling or staying asleep, or sleeping too much: Nearly every day 4. Feeling tired or having little energy: Nearly every day 5. Poor appetite or overeating: Nearly every day - OVEREATING 6. Feeling bad about yourself -- or that you are a failure or have let yourself or your family down: Nearly every day 7. Trouble concentrating on things, such as reading the newspaper or watching television: Nearly every day 8. Moving or speaking so slowly that other people could have noticed. Or the opposite - being so fidgety or restless that you have been moving around a lot more than usual: More than half the days 9. Thoughts that you would be better off , or of hurting yourself in some way: Nearly every day How difficult have these problems made it for you to do your work, take care of things at home, or get along with other people?: Very difficult - PATIENT IS SEEING PROFESSIONAL COUNSELING Total Score: 26 Self-Efficacy 60-Day Re-eval Assessment We would like to know how confident you are in doing certain activities. Please select your confidence level for:: Select your confidence level for the following using the scale 1-10 where 1 is not at all confident and 10 is totally confident. Your score is the average of all 6 responses. Fatigue: How confident are you that you can keep the fatigue caused by your disease from interfering with the things you want to do? Select Number: 4 Physical Discomfort or Pain: How confident are you that you can keep the physical discomfort or pain of your disease from interfering with the things you want to do? Select Number: 5 Emotional Distress: How confident are you that you can keep the emotional distress caused by your disease from interfering with the things you want to do? Select Number: 5 Other Symptoms or Health Problems: How confident are you that you can keep other symptoms or health problems from interfering with the things you want to do? Select Number: 7 Different Tasks and Activities: How confident are you that you can do the different tasks and activities needed to manage your health condition so as to reduce your need to see a doctor? Select Number: 7 Medication: How confident are you that you can do things other than just taking medication to reduce how much your illness affects your everyday life? Select Number: 8 Total Score:: 6
[2019-12-30 11:24] VITALS: BP 126/78; BP 144/90; BMI 28.6
== END 2020-01-03 23:59 ==
LOC: CR 13:00
PROVIDERS: PCP Family Medicine; Referring Provider Internal Medicine Cardiovascular Disease; Visit Provider Internal Medicine Cardiovascular Disease
DX: I25.10 Atherosclerotic heart disease of native coronary artery without angina pectoris (principal); Z95.5 Presence of coronary angioplasty implant and graft; E11.9 Type 2 diabetes mellitus without complications; Z79.84 Long term (current) use of oral hypoglycemic drugs
CPT/HCPCS: 93798; 97802

== ENCOUNTER → 2020-01-05 13:49 | Outpatient (CLI) | payer MEDICARE, SELFPAY ==
[2019-12-30 11:24] VITALS: BMI 28.6
[2020-01-05 13:08] VITALS: BMI 28.3
[2020-01-05 14:39] LABS: Absolute Lymphocyte Count 1.95 X10^3/uL (0.83-4.51); Basophil# 0.04 X10^3/uL; Basophil% 0.5 % (0-1); Eosinophil# 0.41 X10^3/uL; Eosinophils% 5.2 % (0-5); Hematocrit 46.6 % (40-54); Hemoglobin 15.3 g/dL (13.0-16.5); Lymphocyte # 1.95 X10^3/ul (4.0); Lymphocyte % 24.6 % (19-41); Mean Corp Hgb Conc 32.8 g/dL (32-36); Mean Corpuscular Hgb 30.2 pg (27.0-32.0); Mean Corpuscular Volume 92.1 fL (80-94); Mean Platelet Vol. 9.5 fl (6.2-12.0); Monocyte# 0.53 X10^3/uL; Monocyte% 6.7 % (0-10); NRBC Flagged by Analyzer 0 % (0-5); Neutrophil # 4.97 X10^3/uL (2.7-7.7); Neutrophil % 62.5 % (47-70); Platelet Count 261 K/mm3 (150-450); RBC Distribution Width CV 12.6 % (11.6-14.6); RBC Distribution Width SD 41.9 fl (35.1-43.9); Red Blood Count 5.06 M/mm3 (4.6-6.2); White Blood Count 7.9 K/mm3 (4.4-11.0)
[2020-01-05 15:19] LABS: AST(SGOT) 26 U/L (15-37); Alanine Aminotransfer ALT/SGPT 48 U/L (16-61); Albumin, Serum 3.8 g/dL (3.2-5.0); Alkaline Phosphatase 120 U/L (45-117); Anion Gap 5 (5-15); BUN 20 mg/dL (7-18); BUN/Creat Ratio 10.6 RATIO (10-20); Calcium,Total 9.3 mg/dL (8.5-10.1); Chloride 109 mmol/L (98-107); Creatinine, Serum 1.88 mg/dL (0.70-1.30); EST Glomerular Filtration Rate 40 mL/min (>60); Est Glom Filt Rate - Afr Amer 49 mL/min (>60); Globulin 3.9 g/dL (2.2-4.2); Glucose 130 mg/dL (74-106); Potassium 4.1 mmol/L (3.5-5.1); Protein, Total 7.7 g/dL (6.4-8.2); Sodium Level 139 mmol/L (136-145)
== END ==
PROVIDERS: PCP Family Medicine; Referring Provider Physician Assistant Medical; Visit Provider Physician Assistant Medical
DX: M54.30 Sciatica, unspecified side (principal); R53.83 Other fatigue
CPT/HCPCS: 36415; 80053; 85025

== ENCOUNTER 2020-01-11 10:02 | Outpatient (RCR) | payer MEDICARE, SELFPAY ==
[2019-11-02 08:35] VITALS: BMI 28.2
[2019-12-30 11:24] VITALS: BMI 28.6
[2020-01-05 13:08] VITALS: BMI 28.3
== END 2020-01-11 23:59 | disposition home or self-care (01) ==
LOC: DC 10:02
PROVIDERS: PCP Family Medicine; Visit Provider Family Medicine
DX: Z71.3 Dietary counseling and surveillance (principal); E11.9 Type 2 diabetes mellitus without complications
CPT/HCPCS: 97803

== ENCOUNTER → 2020-01-21 17:56 | Outpatient (CLI) | payer MEDICARE, SELFPAY ==
[2019-12-30 11:24] VITALS: BMI 28.6
[2020-01-21 15:45] VITALS: BMI 28.3
[2020-01-21 17:57] LABS: Bacteria 0 SEEN /hpf (None Seen); Mucous, Urine 0 SEEN /hpf (<or=2+); Red Blood Cells-Urine 0 SEEN /hpf (0-5); Squamous Epithelial Cells - UA 0 SEEN /hpf (0-5)
[2020-01-21 18:11] LABS: Color, Urine Yellow (Yellow); Glucose, Dipstick Normal (Normal); Ketone-Dipstick Negative (Negative); Leukocyte Esterase-Dipstick 25 /ul (Negative); Nitrite-Dipstick Negative (Negative); Occult Blood-Urine Negative /ul (Negative); Protein-Dipstick 30 mg/dl (Negative); Urine Bilirubin Dipstick Negative (Negative); Urine Clarity Clear (Clear); Urine Urobilinogen Normal (Normal)
[2020-01-21 18:17] LABS: White Blood Cells 0-5 SEEN /hpf (0-5)
== END ==
PROVIDERS: PCP Family Medicine; Visit Provider Physician Assistant Surgical
DX: R30.0 Dysuria (principal)
CPT/HCPCS: 81001; 87077; 87086; 87088; 87186

== ENCOUNTER 2020-02-02 13:00 | Outpatient (RCR) | payer MEDICARE, SELFPAY ==
[2019-11-02 08:35] VITALS: BMI 28.2
[2019-12-30 11:24] VITALS: BMI 28.6
[2020-01-04 00:22] VITALS: BP 126/78; BP 144/90
--- NOTE | 2020-01-31 15:19 | CR.ITP_ITS ---
Exercise - 90-day Assessment - Visit Date of Eval: 01/31/20 Session #:: 32 - Physician Prescribed Exercise Modalities: Treadmill, NuStep, SciFit Frequency: 3x/week for 12 weeks [36 sessions] Intensity: 60-80% of age predicted maximum heart rate reserve Current METSs:: 4.0 UNCHAGNED DUE TO NEUROPATHY PAIN Current RPE:: 11-13 Maximum Excercise HR:: 103 Resting Blood Pressure: 112/58 Maximum Exercise Blood Pressure: 138/84 EKG Type: NSR TO SINUS TACHY WITHOUT ECTOPY. - Outcomes & Goals Goals:: Verbalizes understanding of THR, RPE & goal METS by session 6, Documents in home exercise log/reports 30 min aerobic 5 day/wk by DC, Demonstrates accurate pulse taking by DC - Intervention & Plan Exercise Program Goals: Instruct on personal THR & RPE, Instruct on MET level & personal MET goal, Show patient to take own pulse /validate performance until accurate, Instruct on home exercise - 30-day Reassessments 30 day Reassessments:: Progressing - Outcomes & Goals Outcomes/Goals: Demonstrates correct Warm-up/exercise Cool-Down (S3) if = 2.5 METs, Verbalizes symptoms of exercise intolerance by Session 3 (S3), Demonstrate safe equipment use (S3) & follows exercise prescrition (6) - Intervention & Plan Plan/Intervention: Instruct warm-up & cool-down if exercising at > 2 METs, Instruct on symptoms of exercise intolerance & actions to take, Instruct & monitor on saf, Assess intial functional capacity & safety risk - 30-day Reassessments 30 day Reassessments:: Progressing Nutrition - 90-Day Assessment - Program Goals Nutrition Program Goals: LDL <100 optimal. 100 - 129 Near optimal. 130 - 159 Borderline High. 160 - 189 High. Total Cholesterol <200 desirable. 200 - 239 Borderline High. >/= 240 High. HDL < 40 Low >/=60 High. Triglycerides <150 desirable. <199 optimal. VlDL 5 - 40. HgbA1C <7%. BMI <25 Patient has diagnosis of Hyperlipidemia (ICD E78)?: Yes - Visit Date of Assessment:: 01/31/20 Session #:: 32 - NO RECENT LABS - Cholesterol/Lipids Determine presence & major risk factors that modify LDL goal: Cigarette smoking, Hypertension or hypertensive medication, Age men > 45 years; women >/= 55 years Outcomes/Goals: Pt IDs own risk factors & lifestyle modifications by Session 10, Verbalizes symptoms of angina & response by session 3., Pt independently manages Intervention/Plan: Instruct on personal lipid levels & lipid goals/NCEP guidelines, Instruct on cholesterol Referral to dietitian:: Yes 30-day Reassessments:: Not Met - Diabetes (Other Core Measures) Diabetes Type: Diagnosis Type II ICD-10 E11 Fasting blood glucose:: 171 - Patient requires reinforcement of proper diet and diabetes. Insulin dependent injection/pump?: Yes Non-Insulin Dependent?: Yes Do you monitor your blood sugar at home?: Yes Referral to Diabetic Clinic:: Yes Outcomes/Goals:: Able to state symptoms of, Able to state, Able to state Intervention/Plan:: Instruct on, Refer to, Instruct on Reassessment Notes & Comments:: Patient does not eat correct foods and sometimes skips meals. Does not eat correctly for DM Type II disease. Nutritional Services can hoepfully support the importance of a proper diet, meal times, and DM glucose control. - Weight Mgt (Other Care) Not Applicable: Yes Height: 6 ft 1 in Weight:: 217 lb BMI: 28.6 Diagnosis Overweight/Obesity BMI> 30% ICD-10 E66: No Diagnosis High BMI/Morbid Obesity BMI> 35% ICD-10 Z68: No Outcomes/Goals: Pt sets, maintains & shows weight loss goal & trend during rehab Intervention/Plan: Instruct on ideal BMI & set weight loss goal w/patient, Assist pt to ID & incorporate diet changes for weight loss by S9, Encourage goal of using 250-300dcal per session for weight loss 30 day Reassessments:: Progressing - Healthy Eating Habits Will attend diet classes:: Yes Outcomes/Goals:: Consume diet rich in vegs,fruits,whole grain/high fiber,fish,lean meat, Limit sat/trans fats,cholesterol & added salts & sugars Intervention/Plan:: Assess current eating habits 30-day Reassessments:: Not Met - Education Gave educational materials for:: Signs & symptoms of hypoglycemia, Signs & symptoms of hyperglycemia, Relate diabetes to coronary artery disease, Healthy eating Medical- 90-Day Assessment - Visit Date of Eval: 01/31/20 Session #:: 32 - Medication Compliance Preventative Medication(s):: Aspirin, Clopidogrel/P2Y12 inhibit, Statin/lipid, Beta rachel H/O mental health issues: depression, anxiety, or addiction?: Yes Doesn?t believe in the benefits of treatment?: No Believes medications are unnecessary or harmful?: No Has a concern about medication side effects?: No Expresses concern over the cost of medications?: No Outcomes/Goals: Verbalizes medications,desired effect & common side effects @ DC, Pt self-reports following medication regimen, Keeps card in wallet w/medications listed by DC Interventions/plans: Instruct on medication effects & side effects, Review medication list w/patient every two weeks, Instruct importance of taking meds as ordered & assist problem solving 30-day Reassessments:: Progressing - Tobacco Use Tobacco Use: Cigarettes Outcomes/Goals: Smoking cessation achieved or maintained by discharge, Identify aids/strategies for achieving smoking cessation by session 6 Interventions/plan: Instruct on effects of smoking & provide smoking cessation resource, Assist pt to set quit date & provide encouragement, Assist pt to develop strategies to achieve/maintain quit date, Assist pt w/nicotine replacement & medication for cessation success 30-day Reassessments:: Not Met - Hypertension Hypertension Diagnosis:: Hypertension ICD-10 I10 Resting Blood Pressure:: 112/58 [place] [employer] Hypertension Guidelines: [place] [employer] Hypertension Guidelines. Normal BP Less than 120/80. Elevated BP 120/80. Hypertension Stage 1: BP 130-139/80-89. Hypertesnion Stage 2: BP 140 or higher/90 or higher. Hypertension Crisis: BP higher than 180/120 Peak Exercise Blood Pressure:: 138/84 Outcomes/Goals: Able to verbalize/achieve optimal blood pressure <130/80, Incorporates diet changes & exercise for blood pressure control by DC Interventions/plan: Instruct on optimal blood pressure, hypertension & medications, Instruct on effects of sodium, alcohol, stress, exercise &hypertension 30 day Reassessments:: Progressing - Tobacco Cessation Referral Smoking Cessation Referral:: Yes Individual Education/Counseling:: Yes Education Schedule Given:: Yes Psychosocial - 90-Day Assess - VIsit Date of Eval: 01/31/20 Session #:: 32 Not Applicable: No History of previous Mental disease:: Yes History of Emotional Disorders: Anxious, Depression, H/O Mental disease, Irrational Behavior, Suicidal Tendencies - Target Goals Target Goals: Assess presence or absence of depression. Using a valid screening tool, maximizes coping skills. Positive support system - Psychosocial Test Tool Used:: PHQ-9 Questionnaire phq-9 Severity: Severity. 1-4 Minimal Depression. 5-9 Mild Depression. 10-14 Moderate Depression. 15-19 Moderately Sever Depression. 20-27 Severe Depression. Rule: - Referral to Behavioral Health PS - Interventions: Yes Attend Stress Management Classes, No Referral to Behavioral Health if PHQ-9 score >9: - Already seeing a professional counselor, No Referral to [facility], No Referral to Physician if PHQ-9 if score is 5-9: - Outcomes/Goals: See list Psychosocial Outcomes/Goals:: ID's personal stressors & 2 strategies to manage stress by discharge - Intervention/Plan: See List Interventions/Plan:: Assess stressors,coping strategies & signs of derpression on admission, Instruct/assist pt to develop coping & personal stress Mgt strategies, Instruct patient to recognize signs & symptoms of depression, Instruct patient to recog - 30-day Reassessments: 30 day Reassessments:: Progressing Patient Health Questionnaire 90-Day Re-eval Assessment 1. Little interest or pleasure in doing things: Nearly every day 2. Feeling down, depressed, or hopeless: Nearly every day 3. Trouble falling or staying asleep, or sleeping too much: Nearly every day 4. Feeling tired or having little energy: Nearly every day 5. Poor appetite or overeating: Nearly every day 6. Feeling bad about yourself -- or that you are a failure or have let yourself or your family down: Nearly every day 7. Trouble concentrating on things, such as reading the newspaper or watching television: More than half the days 8. Moving or speaking so slowly that other people could have noticed. Or the opposite - being so fidgety or restless that you have been moving around a lot more than usual: Nearly every day 9. Thoughts that you would be better off , or of hurting yourself in some way: Nearly every day How difficult have these problems made it for you to do your work, take care of things at home, or get along with other people?: Extremely difficult - patient is already seeing a beto counselor for his depression and mental illness Total Score: 26 Self-Efficacy 90-Day Re-eval Assessment We would like to know how confident you are in doing certain activities. Please select your confidence level for:: Select your confidence level for the following using the scale 1-10 where 1 is not at all confident and 10 is totally confident. Your score is the average of all 6 responses. Fatigue: How confident are you that you can keep the fatigue caused by your disease from interfering with the things you want to do? Select Number: 4 Physical Discomfort or Pain: How confident are you that you can keep the physical discomfort or pain of your disease from interfering with the things you want to do? Select Number: 5 Emotional Distress: How confident are you that you can keep the emotional distress caused by your disease from interfering with the things you want to do? Select Number: 6 Other Symptoms or Health Problems: How confident are you that you can keep other symptoms or health problems from interfering with the things you want to do? Select Number: 7 Different Tasks and Activities: How confident are you that you can do the di fferent tasks and activities needed to manage your health condition so as to reduce your need to see a doctor? Select Number: 8 Medication: How confident are you that you can do things other than just taking medication to reduce how much your illness affects your everyday life? Select Number: 8 Total Score:: 6
[2020-01-31 15:30] VITALS: BP 112/58; BP 138/84; BMI 28.6
== END 2020-02-02 23:59 ==
LOC: CR 13:00
PROVIDERS: PCP Family Medicine; Referring Provider Internal Medicine Cardiovascular Disease; Visit Provider Internal Medicine Cardiovascular Disease
DX: I25.10 Atherosclerotic heart disease of native coronary artery without angina pectoris (principal); Z95.5 Presence of coronary angioplasty implant and graft
CPT/HCPCS: 93798

== ENCOUNTER 2020-02-09 13:00 | Outpatient (RCR) | payer MEDICARE, SELFPAY ==
[2020-01-21 15:45] VITALS: BMI 28.3
[2020-01-31 15:30] VITALS: BMI 28.6
[2020-02-03 00:24] VITALS: BP 112/58; BP 138/84
== END 2020-03-04 23:59 ==
LOC: CR 13:00
PROVIDERS: PCP Family Medicine; Referring Provider Internal Medicine Cardiovascular Disease; Visit Provider Internal Medicine Cardiovascular Disease
DX: I25.10 Atherosclerotic heart disease of native coronary artery without angina pectoris (principal); Z95.5 Presence of coronary angioplasty implant and graft
CPT/HCPCS: 93798

== ENCOUNTER → 2020-04-04 10:19 | Outpatient (CLI) | payer MEDICARE, SELFPAY ==
[2020-01-31 15:30] VITALS: BMI 28.6
[2020-02-17 13:11] VITALS: BMI 28.8
--- NOTE | 2020-04-04 10:23 | RAD_ITS ---
STUDY: X-RAY - LUMBAR SPINE REASON FOR EXAM: Male, 49 years old. Chronic back pain, increasing pain x 1 week TECHNIQUE: 2 view(s) of the lumbar spine were obtained. COMPARISON: 05/14/2019. FINDINGS: There is straightening of the normal lordotic curve, a nonspecific finding, which may be due to positioning or which might be due to muscle spasm. There is no substantial scoliosis. There is a normal alignment of the vertebrae. Normal vertebral bodies. There is multilevel spondylosis.. Normal disc space heights. The soft tissue structures are unremarkable. RAD/Lumbar Spine 2 or 3 Views IMPRESSION: Mild degenerative changes, similar to previous study. No new abnormalities are demonstrated. Electronically Signed: Froylan Oakley MD at 4:54 EST , Service support ,
== END ==
PROVIDERS: PCP Family Medicine; Referring Provider Anesthesiology Pain Medicine; Visit Provider Anesthesiology Pain Medicine
DX: M54.9 Dorsalgia, unspecified (principal)
CPT/HCPCS: 72100

== ENCOUNTER → 2020-05-17 16:28 | Outpatient (CLI) | payer MEDICARE, SELFPAY ==
[2020-01-31 15:30] VITALS: BMI 28.6
[2020-05-17 15:38] VITALS: BMI 29.1
[2020-05-17 18:15] LABS: AST(SGOT) 21 U/L (15-37); Alanine Aminotransfer ALT/SGPT 53 U/L (16-61); Albumin, Serum 3.6 g/dL (3.2-5.0); Alkaline Phosphatase 121 U/L (45-117); Anion Gap 3 (5-15); BUN 14 mg/dL (7-18); BUN/Creat Ratio 8.5 RATIO (10-20); Calcium,Total 8.9 mg/dL (8.5-10.1); Chloride 105 mmol/L (98-107); Cholesterol 260 mg/dL (200); Creatinine, Serum 1.65 mg/dL (0.70-1.30); EST Glomerular Filtration Rate 47 mL/min (>60); Est Glom Filt Rate - Afr Amer 57 mL/min (>60); Globulin 3.7 g/dL (2.2-4.2); Glucose 147 mg/dL (74-106); High Density Lipoprotein 36 mg/dL; Potassium 3.7 mmol/L (3.5-5.1); Protein, Total 7.3 g/dL (6.4-8.2); Sodium Level 138 mmol/L (136-145); Triglycerides 489 mg/dL
== END ==
PROVIDERS: PCP Family Medicine; Referring Provider Physician Assistant Medical; Visit Provider Physician Assistant Medical
DX: I25.10 Atherosclerotic heart disease of native coronary artery without angina pectoris (principal); I10 Essential (primary) hypertension; E78.5 Hyperlipidemia, unspecified
CPT/HCPCS: 36415; 80053; 80061

== ENCOUNTER → 2020-06-07 05:56 | Outpatient (CLI) | payer MEDICARE, SELFPAY ==
[2020-01-31 15:30] VITALS: BMI 28.6
[2020-05-17 15:38] VITALS: BMI 29.1
--- NOTE | 2020-06-07 07:51 | STRESSREP_ITS ---
Stress Test Report Date: 06-07-2020 Procedure: Pharmacologic stress nuclear imaging study Indications: Chest pain; CAD; PCI Consent: Per the patient Procedure: The patient underwent pharmacologic (Regadenoson 0.4mg ) evaluation with a peak heart rate of 100 beats per minute (59%predicted maximal heart rate) and a peak blood pressure of 130/82 mmHg. The baseline ECG demonstrated sinus bradycardia. The peak pharmacologic ECG demonstrated no obvious ECG changes. There were no cardiac dysrhythmias pretest, during pharmacologic infusion, or recovery. There was no complaint of chest discomfort during pharmacologic infusion or recovery. The examination was discontinued secondary to completion of protocol. Impression: 1. Pharmacologic (Regadenoson) evaluation 2. Peak pharmacologic ECG with no obvious ECG changes. 3. There were no cardiac dysrhythmias pretest, during pharmacologic infusion, or recovery. 4. Nuclear images pending Myocardial perfusion imaging study: Technique: The patient was injected with 14.8 millicuries of technetium 99m Cardiolite and subsequently rest SPECT Cardiolite nuclear imaging was obtained in the horizonta l long, vertical long, and short axis views. The patient underwent pharmacologic (Regadenoson) evaluation with a peak heart rate of 100 beats per minute (59% percent predicted maximal heart rate) and a peak blood pressure of 130/82 mmHg. The patient was injected with 44.1 millicuries of technetium 99m Cardiolite and subsequently stress SPECT Cardiolite nuclear imaging was obtained in the horizontal long, vertical long, and short axis views. A gated Cardiolite study at peak stress was obtained. Interpretation: Rest and stress SPECT Cardiolite nuclear imaging status post realignment, normalization, and attenuation correction demonstrate relative uniform tracer uptake and myocardial perfusion appearing within normal limits. There is end systolic thickening and brightening. The gated Cardiolite study demonstrates myocardial thickening and inward wall motion. The reported LVEF is 65%. Impression: 1. Rest and stress SPECT Cardiolite nuclear imaging demonstrate relative uniform tracer uptake and myocardial perfusion appearing within normal limits. 2. The gated Cardiolite study reports an LVEF of 65%. This note was generated with [employer] software. It may contain incorrect words, spelling, and punctuation that were not noted in checking the note before signing.
== END ==
PROVIDERS: PCP Family Medicine; Referring Provider Physician Assistant Medical; Visit Provider Physician Assistant Medical
DX: R07.9 Chest pain, unspecified (principal); I25.10 Atherosclerotic heart disease of native coronary artery without angina pectoris; I25.2 Old myocardial infarction; Z95.5 Presence of coronary angioplasty implant and graft
CPT/HCPCS: 78452; 93017; A9500; A4216; J2785

== ENCOUNTER 2020-08-12 16:58 | Emergency (ER) | payer MEDICARE, SELFPAY ==
[2020-01-31 15:30] VITALS: BMI 28.6
[2020-05-17 15:38] VITALS: BMI 29.1
[2020-08-12] VITALS (8 sets, daily range): BP systolic 119–164; BP diastolic 85–103; PULSE 77–94; RESP 14–16; TEMP 36.6; O2SAT 92–98; BMI 30.2
--- NOTE | 2020-08-12 17:10 | EKG12_ITS ---
Test Reason : CP Blood Pressure : / mmHG Vent. Rate : 089 BPM Atrial Rate : 089 BPM P-R Int : 152 ms QRS Dur : 084 ms QT Int : 358 ms P-R-T Axes : 047 042 046 degrees QTc Int : 435 ms Normal sinus rhythm Normal ECG Confirmed by MOISES ROBERTS, MARGIE ([id number]), newspaper photo editor EZEQUIEL LUDWIG ([id number]) on 08/16/2020 10:54:02 AM Referred By: ANITRA Confirmed By:MARGIE DE LEON MD
--- NOTE | 2020-08-12 17:11 | ED.VISSUMM ---
- ER Visit Summary Date of Service: 08/12/20 Chief Complaint: [Chest pain] History of Present Illness: The patient is a 50 M [presents to the emergency department complaint of chest pain that started around 1500 hrs. Patient states that he was sitting at a desk. He describes a tightness or cramping in his left chest that really does not radiate anywhere. He denies nausea or vomiting. Patient describes a mild shortness of breath but states he is always a little short of breath because of his smoking history. Patient does have history of coronary artery disease with 2 cardiac stents one placed in 2016 and one in 2019. Patient states this pain feels different and that he does not really have any radiation of the pain or any of the other classic symptoms that he had with his other cardiac events. Patient denies recent travel or surgery. Patient states this discomfort is been continuous and rates it about a 4 5 out of 10 currently.] Physical Examination: [HEENT-PERRLA, EOMI. Cranial nerves II through XII grossly intact. TMs clear. Mucous membranes moist. No adenopathy. Cardiovascular-regular rate and rhythm without murmur or ectopy. Chest wall-I am unable to reproduce his pain with palpation of the chest wall. Lungs-clear to auscultation, chest wall stable without crepitus or subcu emphysema Abdomen-normoactive bowel sounds, soft, nontender, no rebound or rigidity, no peritoneal signs. Extremities-intact ?4, normal range of motion, normal pulses, atraumatic] Test Results: [EKG obtained arrival shows sinus rhythm with a ventricular rate of 89 bpm with no acute ST segment changes.] CBC with differential was normal. Chemistries unremarkable. Creatinine 1.93. Troponin less than 0.015. D-dimer was 0.43. Chest x-ray 1 view obtained interpreted by myself as no acute disease process and radiology in agreement. Repeat EKG obtained at 2034 showed a normal sinus rhythm with no acute ST segment changes. Patient also had a delta troponin that was less than 0.015. Emergency Department Course and Treatment: [The line established on arrival. Patient was given aspirin. Results discussed with patient. Patient tells me that he had a stress test 2 months ago that was unremarkable. I discussed patient case with cardiology Dr. Brennan Howard who is the patient's head of maintenance and given that this pain is somewhat atypical compared to the the pain that he had when he required stenting and the fact that he had a recent stress testing it was felt that obtaining a delta troponin and repeat EKG would be reasonable and if negative patient could be discharged to home. Patient remained pain-free in the emergency department on repeat examination and evaluation at 2047 patient is pain-free. He is comfortable going home and does not want to be admitted. He is advised to return to the ER if worsening pain increasing shortness of breath, exertional dyspnea, or condition should worsen anyway.] Treatment Plan: [Follow-up with primary care physician within next 3 to 5 days.] Disposition: [Discharged home in stable condition] Impression: [Chest pain-etiology uncertain] This note was generated with [employer] dictation software. It may contain incorrect words, spelling, and punctuation that were not noted in review of the chart prior to signing ED Disposition - Plan for ED Patient: Referrals: Brennan Ty MD [Primary Care Provider] -
[2020-08-12 17:32] LABS: Absolute Lymphocyte Count 1.66 X10^3/uL (0.83-4.51); Absolute Neutrophil Count 4.8 X10^3/uL (2.0-7.7); Basophil# 0.05 X10^3/uL; Basophil% 0.7 % (0-1); Eosinophil# 0.23 X10^3/uL; Eosinophils% 3.1 % (0-5); Hematocrit 43.1 % (40-54); Hemoglobin 14.2 g/dL (13.0-16.5); Lymphocyte # 1.66 X10^3/ul (4.0); Lymphocyte % 22.5 % (19-41); Mean Corp Hgb Conc 32.9 g/dL (32-36); Mean Corpuscular Hgb 30.4 pg (27.0-32.0); Mean Corpuscular Volume 92.3 fL (80-94); Mean Platelet Vol. 9.3 fl (6.2-12.0); Monocyte# 0.54 X10^3/uL; Monocyte% 7.3 % (0-10); NRBC Flagged by Analyzer 0 % (0-5); Neutrophil # 4.82 X10^3/uL (2.7-7.7); Neutrophil % 65.3 % (47-70); Platelet Count 236 K/mm3 (150-450); Red Blood Count 4.67 M/mm3 (4.6-6.2); White Blood Count 7.4 K/mm3 (4.4-11.0)
[2020-08-12] MEDS: Aspirin 81 MG TAB.CHEW 324 MG PO (17:36)
[2020-08-12] MEDS: 0.9% Normal Saline 1,000 ML 150 ML IV (17:36)
[2020-08-12] MEDS: Nitroglycerin SL (ED/IMG/CATH) 0.4 MG TABLET SL ×2 (17:37→17:59)
--- NOTE | 2020-08-12 17:40 | RAD_ITS ---
STUDY: X-RAY CHEST REASON FOR EXAM: Male, 50 years old. chest pain TECHNIQUE: AP COMPARISON: 10/23/2019 FINDINGS: EKG leads project over the chest. The lungs are clear and expanded. There is no demonstrated pleural abnormality. Normal size heart. Normal mediastinum and jayde. Normal visualized pulmonary arteries. Normal visualized aortic arch and descending thoracic aorta. Normal visualized thoracic spine. Normal visualized ribs, clavicles, and shoulders. There is no demonstrated abnormality of the visualized soft tissue structures of the upper abdomen. RAD/Chest 1 View (Portable) IMPRESSION: Stable, nonacute portable x-ray examination of the chest. Electronically Signed: Krish Salas MD ([place]) at 18:26 EDT , Service support ,
[2020-08-12 17:51] LABS: D-Dimer Quantitative (DVT/PE) 0.43 FEU/ug/m (0.27-0.49)
[2020-08-12 17:58] LABS: Anion Gap 8 (5-15); BUN 18 mg/dL (7-18); BUN/Creat Ratio 9.3 RATIO (10-20); Calcium,Total 8.7 mg/dL (8.5-10.1); Chloride 104 mmol/L (98-107); Creatinine, Serum 1.93 mg/dL (0.70-1.30); EST Glomerular Filtration Rate 39 mL/min (>60); Est Glom Filt Rate - Afr Amer 47 mL/min (>60); Estimated Creatinine Clearance 52.06 ml/min; Glucose 282 mg/dL (74-106); Potassium 3.6 mmol/L (3.5-5.1); Sodium Level 137 mmol/L (136-145)
--- NOTE | 2020-08-12 20:18 | EKG12_ITS ---
Test Reason : REPEAT Blood Pressure : / mmHG Vent. Rate : 076 BPM Atrial Rate : 076 BPM P-R Int : 166 ms QRS Dur : 084 ms QT Int : 390 ms P-R-T Axes : 046 030 033 degrees QTc Int : 438 ms Normal sinus rhythm Normal ECG Confirmed by MOISES ROBERTS, MARGIE ([id number]), writer editor EZEQUIEL LUDWIG ([id number]) on 08/16/2020 10:53:46 AM Referred By: MARIAH Confirmed By:MARGIE DE LEON MD
--- NOTE | 2020-08-12 20:49 | ED.DEP ---
ED Disposition - Plan for ED Patient: Instructions: ED Chest Pain, Uncertain Cause Referrals: Brennan Ty MD [Primary Care Provider] - 3-5 Days
== END 2020-08-12 20:53 | disposition home or self-care (01) ==
LOC: ED 17:36
PROVIDERS: Emergency Provider Emergency Medicine; PCP Family Medicine
DX: R07.9 Chest pain, unspecified (principal); R06.02 Shortness of breath; I25.10 Atherosclerotic heart disease of native coronary artery without angina pectoris; Z95.5 Presence of coronary angioplasty implant and graft; I25.2 Old myocardial infarction; I10 Essential (primary) hypertension; E78.00 Pure hypercholesterolemia, unspecified; E11.9 Type 2 diabetes mellitus without complications; Z72.0 Tobacco use
CPT/HCPCS: 71045; 80048; 84484; 85025; 85379; 93005; 96360; 96361; 99285; J7030; A4216

== ENCOUNTER → 2020-09-04 15:11 | Outpatient (CLI) | payer MEDICARE, SELFPAY ==
[2020-01-31 15:30] VITALS: BMI 28.6
[2020-08-15 14:32] VITALS: BMI 29.0
[2020-09-04 17:58] LABS: Anion Gap 6 (5-15); BUN 20 mg/dL (7-18); BUN/Creat Ratio 10.1 RATIO (10-20); Calcium,Total 9.1 mg/dL (8.5-10.1); Chloride 104 mmol/L (98-107); Cholesterol 175 mg/dL (200); Creatinine, Serum 1.99 mg/dL (0.70-1.30); EST Glomerular Filtration Rate 38 mL/min (>60); Est Glom Filt Rate - Afr Amer 46 mL/min (>60); Glucose 184 mg/dL (74-106); High Density Lipoprotein 35 mg/dL; Potassium 4.2 mmol/L (3.5-5.1); Sodium Level 138 mmol/L (136-145); Triglycerides 253 mg/dL; Very Low Density Lipoprotein 51 mg/dL (5-40)
== END ==
PROVIDERS: PCP Family Medicine; Visit Provider Family Medicine
DX: E11.9 Type 2 diabetes mellitus without complications (principal)
CPT/HCPCS: 36415; 80048; 80061

== ENCOUNTER 2020-09-07 20:59 | Emergency (ER) | payer MEDICARE, SELFPAY ==
[2020-01-31 15:30] VITALS: BMI 28.6
[2020-08-15 14:32] VITALS: BMI 29.0
[2020-09-07 20:59] VITALS: BP 155/95; PULSE 86; RESP 18; TEMP 36.4; O2SAT 99; BMI 28.5
--- NOTE | 2020-09-07 21:06 | EKG12_ITS ---
Test Reason : CP Blood Pressure : / mmHG Vent. Rate : 065 BPM Atrial Rate : 065 BPM P-R Int : 142 ms QRS Dur : 084 ms QT Int : 376 ms P-R-T Axes : 020 053 054 degrees QTc Int : 391 ms Normal sinus rhythm Normal ECG Confirmed by MOISES ROBERTS, MARGIE ([id number]), editor house organ EZEQUIEL LUDWIG ([id number]) on 09/11/2020 12:43:04 PM Referred By: DAGO Confirmed By:MARGIE DE LEON MD
[2020-09-07 21:33] VITALS: O2SAT 98
[2020-09-07 21:41] LABS: Absolute Lymphocyte Count 1.86 X10^3/uL (0.83-4.51); Absolute Neutrophil Count 5.1 X10^3/uL (2.0-7.7); Basophil# 0.04 X10^3/uL; Basophil% 0.5 % (0-1); Eosinophil# 0.17 X10^3/uL; Eosinophils% 2.2 % (0-5); Hematocrit 45.3 % (40-54); Hemoglobin 14.9 g/dL (13.0-16.5); Lymphocyte # 1.86 X10^3/ul (0.83-4.51); Lymphocyte % 24.1 % (19-41); Mean Corp Hgb Conc 32.9 g/dL (32-36); Mean Corpuscular Hgb 30.3 pg (27.0-32.0); Mean Corpuscular Volume 92.3 fL (80-94); Mean Platelet Vol. 8.8 fl (6.2-12.0); Monocyte# 0.55 X10^3/uL; Monocyte% 7.1 % (0-10); NRBC Flagged by Analyzer 0 % (0-5); Neutrophil # 5.06 X10^3/uL (2.7-7.7); Neutrophil % 65.5 % (47-70); Platelet Count 243 K/mm3 (150-450); RBC Distribution Width CV 12.9 % (11.6-14.6); RBC Distribution Width SD 43.6 fl (35.1-43.9); Red Blood Count 4.91 M/mm3 (4.6-6.2); White Blood Count 7.7 K/mm3 (4.4-11.0)
[2020-09-07] MEDS: Ondansetron 4 MG/2 ML Vial IV (21:57)
[2020-09-07] MEDS: Aspirin 81 MG TAB.CHEW 324 MG PO (21:59)
[2020-09-07] MEDS: 0.9% Normal Saline 1,000 ML 150 ML IV (22:06)
[2020-09-07 22:07] LABS: Anion Gap 8 (5-15); BUN 17 mg/dL (7-18); BUN/Creat Ratio 7.8 RATIO (10-20); Chloride 107 mmol/L (98-107); Creatinine, Serum 2.17 mg/dL (0.70-1.30); EST Glomerular Filtration Rate 34 mL/min (>60); Est Glom Filt Rate - Afr Amer 41 mL/min (>60); Glucose 141 mg/dL (74-106); Potassium 3.8 mmol/L (3.5-5.1); Sodium Level 140 mmol/L (136-145)
[2020-09-07 22:09] VITALS: BP 137/94; PULSE 60; RESP 17; O2SAT 97
--- NOTE | 2020-09-07 22:25 | RAD_ITS ---
STUDY: X-RAY CHEST REASON FOR EXAM: Male, 50 years old. Chest pain TECHNIQUE: Single AP portable view of the chest. COMPARISON: August 12, 2020 FINDINGS: The lungs are clear and expanded. There is no demonstrated pleural abnormality. Normal size heart. Normal mediastinum and jayde. Normal visualized pulmonary arteries. Normal visualized aortic arch and descending thoracic aorta. Normal visualized thoracic spine. Normal visualized ribs, clavicles, and shoulders. There is no demonstrated abnormality of the visualized soft tissue structures of the upper abdomen. RAD/Chest 1 View (Portable) IMPRESSION: Normal x-ray examination of the chest. Electronically Signed: Fidel Harper MD at 22:56 EDT , Service support ,
--- NOTE | 2020-09-07 22:29 | EKG12_ITS ---
Test Reason : REPEAT Blood Pressure : / mmHG Vent. Rate : 055 BPM Atrial Rate : 055 BPM P-R Int : 164 ms QRS Dur : 084 ms QT Int : 432 ms P-R-T Axes : 021 024 043 degrees QTc Int : 413 ms Sinus bradycardia Otherwise normal ECG Confirmed by MOISES ROBERTS, MARGIE ([id number]), assistant film editor EZEQUIEL LUDWIG ([id number]) on 09/11/2020 12:42:46 PM Referred By: LIZ Confirmed By:MARGIE DE LEON MD
--- NOTE | 2020-09-07 23:41 | ED.VIS.CHEST ---
HPI History of Present Illness Chief Complaint: Chest Pain Narrative Narrative: 50-year-old male patient of Dr. Madrigal and Dr. Brennan Severino. Patient ports approximate 20 minutes ago while walking through [facility] he had the onset of a sharp substernal chest pain. It was 8 out of 10 at worst 1 out of 10 currently. Is worsened by nothing including exertion or breathing. It was relieved by rest. Ports that he felt lightheaded and palpitations with this. He currently has a 30-day monitor on. He reports that he was nauseated, no vomiting. He did make him diaphoretic and short of breath. [facility] Medical History Atherosclerosis of coronary artery of [place] heart without angina pectoris Chronic kidney disease, stage 3 (~03/15/13) Chronic radicular lumbar pain Diabetes mellitus type II, controlled Essential hypertension History of ST elevation myocardial infarction (STEMI) (09/29/16) Hyperlipidemia Neurogenic bladder NSVT (nonsustained ventricular tachycardia) Osteoarthritis Palpitations Sleep-disordered breathing Smoking addiction Spinal stenosis of lumbar region STEMI (ST elevation myocardial infarction) Unstable angina Home Medications escitalopram oxalate 5 mg PO DAILY 04/21/15 [History Last Taken 07/25/19] fish oil-dha-epa 1 each PO DAILY 04/21/15 [History Last Taken 07/25/19] allopurinol 100 mg PO DAILY 07/25/15 [History Last Taken 07/25/19] B complex with C 20-folic acid 1 mg PO DAILY 05/01/18 [History Last Taken 07/25/19] aspirin 81 mg PO DAILY@0800 05/01/18 [History Last Taken 07/25/19] atorvastatin 80 mg PO QHS 05/01/18 [History Last Taken 07/24/19] gabapentin 600 mg PO BID 05/01/18 [History Last Taken 07/25/19] hydrocodone-acetaminophen 1 tablet PO Q4H PRN PRN 05/01/18 [History Last Taken 07/22/19] glimepiride 1 mg PO DAILY 06/05/19 [History Last Taken 07/25/19] trimethoprim 100 mg tablet 100 mg PO QODAY PRN 02/17/20 [History Last Taken Unknown] amlodipine 5 mg tablet 10 mg PO DAILY tablet 05/17/20 [History Last Taken Unknown] isosorbide mononitrate 30 mg tablet,extended release 24 hr 30 mg PO BID #180 tablet 05/17/20 [Rx Last Taken Unknown] nitroglycerin 0.4 mg sublingual tablet 0.4 mg SL Q5M PRN #25 tablet 06/09/20 [Rx Last Taken Unknown] ranolazine 500 mg tablet,extended release,12 hr 500 mg PO BID #180 tablet 07/10/20 [Rx Last Taken Unknown] carvedilol 25 mg tablet 25 mg PO BID #180 tablet 07/27/20 [Rx Last Taken Unknown] clopidogrel 75 mg tablet See Rx Instructions .ROUTE .COMPLEX #90 tablet 07/27/20 [Rx Last Taken Unknown] furosemide 20 mg tablet 20 mg PO DAILY #90 tablet 07/27/20 [Rx Last Taken Unknown] esomeprazole magnesium 20 mg capsule,delayed release 20 mg PO DAILY #30 cap 07/31/20 [Rx Last Taken Unknown] cyclobenzaprine 10 mg PO DAILY PRN 08/12/20 [History Last Taken Unknown] meloxicam 7.5 mg PO DAILY 08/12/20 [History Last Taken Unknown] Allergy/AdvReac Type Severity Reaction Status Date / Time sulfamethoxazole Allergy Mild Rash Verified 09/07/20 21:07 [From Bactrim] trimethoprim [From Bactrim] Allergy Mild Rash Verified 09/07/20 21:07 bupropion [From Wellbutrin] AdvReac Elevated Verified 09/07/20 21:07 BP Family History Grandfather CAD (coronary artery disease) Surgical History History of left heart catheterization History of renal stent ileoconduit placement percutaneous nephrostomy Stented coronary artery (10/25/19) urethral stricture surgery urinary tract diverson Social History Smoking Status: Current every day smoker ROS ROS ED Constitutional Constitutional ED: Denies chills, fever(s) or sweats Eyes Eyes: Denies change in vision ENT ENT ED: Denies sore throat Cardiovascular Cardiovascular: Reports chest pain and palpitations Respiratory/Chest Respiratory/Chest: Reports dyspnea; Denies cough or dyspnea on exertion Gastrointestinal Gastrointestinal: Denies abdominal pain, diarrhea, melena, nausea or vomiting Genitourinary Genitourinary ED: Denies dysuria or urinary frequency Musculoskeletal Musculoskeletal: Denies myalgias Integumentary Denies rash Neurologic Neurologic: Denies headache(s), paresthesias or weakness EXAM Physical Exam Const Vital Signs: 09/07/20 20:59 09/07/20 21:33 09/07/20 22:09 Temperature 97.6 F L Temperature Source Temporal Pulse Rate 86 60 Respiratory Rate 18 17 Respiratory Effort Normal Respiratory Pattern Normal Blood Pressure 155/95 H 137/94 H Blood Pressure Mean 115 108 Pulse Ox 99 98 97 Oxygen Delivery Method Room Air Room Air Room Air Positive well nourished and well developed General Appearance ED: well developed HEENT Reports normocephalic and head/scalp atraumatic Eyes PERRL Neck no lymphadenopathy, supple and no JVD General: Negative for tenderness Resp normal respiratory effort and clear to auscultation bilaterally Cardio regular rate, regular rhythm and no murmurs GI normal to inspection, nondistended, normoactive bowel sounds and non-tender GI Narrative: No guarding, rebound, or peritoneal signs. Palpation: soft Back/Spine Back/Spine Narrative: Nontender. Extremity General Extremety ED: Negative for edema or tenderness General Extremity: Negative for edema Neuro oriented x3, CN's II-XII intact bilaterally and no sensory deficits noted Sensorium / Orientation: alert Motor Exam: strength 5/5 throughout Psych mental status grossly normal Skin no rashes or lesions noted Heart Score History: Slightly/Non-Suspicious ECG: Nonspecific Repolarization Age: >45 - <65 years Risk Factors: >/= 3 Risk Factors or History of CAD Troponin: </= Normal Limit Score: 4 [facility] Lab Data Labs: Laboratory Results - last 24 hr 09/07/20 09/07/20 21:30 21:30 WBC 7.7 RBC 4.91 Hgb 14.9 Hct 45.3 MCV 92.3 MCH 30.3 MCHC 32.9 RDW Std Deviation 43.6 RDW Coeff of [place] 12.9 Plt Count 243 MPV 8.8 Immature Gran % (Auto) 0.600 Neut % (Auto) 65.5 Lymph % (Auto) 24.1 [place] % (Auto) 7.1 Eos % (Auto) 2.2 Baso % (Auto) 0.5 Absolute Neuts (auto) 5.1 Absolute Lymphs (auto) 1.86 Nucleated RBC % 0 Sodium 140 Potassium 3.8 Chloride 107 Carbon Dioxide 25.0 Anion Gap 8 BUN 17 Creatinine 2.17 H Estim Creat Clear Calc 45.00 Est GFR (MDRD) Af Amer 41 L Est GFR (MDRD) Non-Af 34 L BUN/Creatinine Ratio 7.8 L Glucose 141 H Calcium 9.0 Troponin I < 0.015 Radiography Diagnostic Testing: Radiology Impression Chest X-Ray 09/07/20 22:25 IMPRESSION: Normal x-ray examination of the chest. Electronically Signed: Fidel Harper MD at 22:56 EDT , Service support , EKG Initial EKG: Attestation: I personally reviewed and interpreted this EKG as follows: Interpretation: Sinus Rhythm, No Acute Injury Pattern and Non-Specific ST Changes Prior: Unchanged Follow-up EKG: Attestation: I personally reviewed and interpreted this EKG as follows: Interpretation: Sinus Rhythm and Non-Specific ST Changes Prior: Unchanged Treatment and Re-Evaluation Comments:: Emergency department course: Patient had an IV placed. He was given Zofran IV and aspirin p.o. He is resting comfortably. Treatment plan: Patient's pain is very atypical. He had a stress test 3 months ago that was negative. He had a heart catheterization in October 2019 that showed his stents to be in place and there were no further lesions that require treatment. Patient will be discharged instructions follow-up Dr. Madrigal soon as possible. Return to the emergency department for any worsening symptoms. Disposition: To home in improved and stable condition. Discharge Plan Triage Chief Complaint: Chest Pain ED Provider: Edgar Gimenez Dx/Rx/DC Orders Clinical Impression: Chest pain of uncertain etiology Instructions: ED Chest Pain, Uncertain Cause Prescriptions: No Action amlodipine 5 mg tablet 10 mg PO DAILY RF: 0 isosorbide mononitrate 30 mg tablet extended release 24 hr 30 mg PO BID Qty: 180 RF: 3 Hold Instructions: low BP fish oil-dha-epa 1 EACH capsule 1 each PO DAILY RF: 0 escitalopram oxalate 5 MG tablet 5 mg PO DAILY RF: 0 allopurinol 100 MG tablet 100 mg PO DAILY RF: 0 hydrocodone-acetaminophen 1 EACH tablet 1 tablet PO Q4H PRN PRN (Reason: Pain) RF: 0 gabapentin 300 MG capsule 600 mg PO BID RF: 0 B complex with C 20-folic acid 1 MG capsule 1 mg PO DAILY RF: 0 atorvastatin 80 MG tablet 80 mg PO QHS RF: 0 aspirin 81 MG tablet 81 mg PO DAILY@0800 RF: 0 trimethoprim 100 mg tablet 100 mg PO QODAY PRN (Reason: antibiotic) RF: 0 glimepiride 1 MG tablet 1 mg PO DAILY RF: 0 cyclobenzaprine 10 MG tablet 10 mg PO DAILY PRN (Reason: Pain 1-10 Or Fever) RF: 0 meloxicam 7.5 MG tablet 7.5 mg PO DAILY RF: 0 nitroglycerin 0.4 mg tablet, sublingual 0.4 mg SL Q5M PRN (Reason: chest pain) Qty: 25 RF: 3 ranolazine [Ranexa] 500 mg tablet extended release 12 hr 500 mg PO BID Qty: 180 RF: 3 clopidogrel 75 mg tablet See Rx Instructions .ROUTE .COMPLEX Qty: 90 RF: 4 carvedilol [Coreg] 25 mg tablet 25 mg PO BID Qty: 180 RF: 4 furosemide [Lasix] 20 mg tablet 20 mg PO DAILY Qty: 90 RF: 4 esomeprazole magnesium [Nexium] 20 mg capsule,delayed release(DR/EC) 20 mg PO DAILY Qty: 30 RF: 11 Primary Care Provider: Brennan Ty Referrals: Rusty Madrigal MD [STAFF PHYSICIAN] - As soon as possible Brennan Ty MD [Primary Care Provider] - 2 Days
[2020-09-07 23:59] VITALS: BP 146/99; PULSE 63; RESP 16; O2SAT 95
[2020-09-08] VITALS: RESP 16
[2020-09-08 01:52] VITALS: BP 137/91; PULSE 64; RESP 14; O2SAT 93
== END 2020-09-08 01:56 | disposition home or self-care (01) ==
LOC: ED 21:50
PROVIDERS: Emergency Medicine; Emergency Provider Emergency Medicine; PCP Family Medicine
DX: R07.9 Chest pain, unspecified (principal)
CPT/HCPCS: 71045; 80048; 84484; 85025; 93005; 96374; 99284; J7030; A4216; J2405

== ENCOUNTER → 2020-11-02 09:46 | Outpatient (CLI) | payer MEDICARE, SELFPAY ==
[2020-01-31 15:30] VITALS: BMI 28.6
[2020-10-24 11:09] VITALS: BMI 28.3
[2020-11-02 12:07] LABS: Anion Gap 4 (5-15); BUN 19 mg/dL (7-18); Chloride 104 mmol/L (98-107); EST Glomerular Filtration Rate 35 mL/min (>60); Est Glom Filt Rate - Afr Amer 43 mL/min (>60); Glucose 179 mg/dL (74-106); Potassium 3.7 mmol/L (3.5-5.1); Sodium Level 136 mmol/L (136-145)
== END ==
PROVIDERS: PCP Family Medicine; Visit Provider Family Medicine
DX: N19 Unspecified kidney failure (principal)
CPT/HCPCS: 36415; 80048

== ENCOUNTER → 2021-01-15 16:05 | Outpatient (CLI) | payer MEDICARE, SELFPAY ==
[2020-01-31 15:30] VITALS: BMI 28.6
[2021-01-15 18:30] LABS: Anion Gap 6 (5-15); BUN 31 mg/dL (7-18); BUN/Creat Ratio 14.4 RATIO (10-20); Calcium,Total 9.4 mg/dL (8.5-10.1); Chloride 106 mmol/L (98-107); Cholesterol 213 mg/dL (200); Creatinine, Serum 2.15 mg/dL (0.70-1.30); EST Glomerular Filtration Rate 34 mL/min (>60); Est Glom Filt Rate - Afr Amer 42 mL/min (>60); Glucose 173 mg/dL (74-106); High Density Lipoprotein 41 mg/dL; Potassium 4.3 mmol/L (3.5-5.1); Sodium Level 138 mmol/L (136-145); Triglycerides 453 mg/dL
[2021-01-15 18:36] LABS: Microalbumin:Creatinine Ratio 309.4 mg/g CRE (<30 mg/g CRE)
== END ==
PROVIDERS: PCP Family Medicine; Referring Provider Family Medicine; Visit Provider Family Medicine
DX: E11.9 Type 2 diabetes mellitus without complications (principal)
CPT/HCPCS: 36415; 80048; 80061; 82043; 82570

== ENCOUNTER → 2021-01-24 17:33 | Outpatient (CLI) | payer MEDICARE, SELFPAY ==
[2020-01-31 15:30] VITALS: BMI 28.6
--- NOTE | 2021-01-24 17:41 | MRI_ITS ---
EXAM: MR Lumbar Spine Without Intravenous Contrast CLINICAL INDICATION: 50 years old, Male; BACK AND BILAT LEG PAIN TECHNIQUE: Multiplanar and multisequence MR images of the lumbar spine without intravenous contrast. This report was created using [employer] report [employer] technology. COMPARISON: None. FINDINGS: Vertebrae: Hemangioma in L3. Vertebral body heights are preserved. Normal vertebral bodies and posterior elements. Normal alignment. No spondylolisthesis. There is preservation of the normal lumbar lordosis. Spinal cord: Unremarkable. Normal position and signal intensity of the conus medullaris. Soft tissues: Unremarkable. DISCS/SPINAL CANAL/NEURAL FORAMINA: L1-L2: Unremarkable. Normal disc height and morphology. Normal spinal canal, lateral recesses and neuroforamina. L2-L3: Unremarkable. Normal disc height and morphology. Normal spinal canal, lateral recesses and neuroforamina. L3-L4: Degenerative disc bulge at L3-L4 causing ventral effacement of the thecal sac but no spinal canal stenosis. No neural foraminal stenosis. L4-L5: Moderate right neural foraminal stenosis at L4-L5 due to lateral disc bulge and bony hypertrophy. Small annular tear in the right/lateral L4-5 disc. Degenerative disc bulge at L4-L5 causing ventral effacement of the thecal sac but no spinal canal stenosis. L5-S1: Moderate left and mild right neural foraminal stenoses at L5-S1 due to disc bulge and bony hypertrophy. Degenerative disc bulge at L5-S1 causing ventral effacement of the thecal sac but no spinal canal stenosis. MRI/Spine Lumbar (Routine) IMPRESSION: 1. Moderate left and mild right neural foraminal stenoses at L5-S1 due to disc bulge and bony hypertrophy. 2. Moderate right neural foraminal stenosis at L4-L5 due to lateral disc bulge and bony hypertrophy. 3. Small annular tear in the right/lateral L4-5 disc. ASSESSMENT: ABNORMAL report - There are abnormal findings in this report which may be related or unrelated to the reason for the exam. Electronically Signed: Ruben Hadley MD at 20:11 EDT Tel , Service support ,
== END ==
PROVIDERS: PCP Family Medicine; Referring Provider Anesthesiology Pain Medicine; Visit Provider Anesthesiology Pain Medicine
DX: M54.9 Dorsalgia, unspecified (principal); M79.606 Pain in leg, unspecified
CPT/HCPCS: 72148

== ENCOUNTER → 2021-02-12 14:32 | Outpatient (CLI) | payer MEDICARE, SELFPAY ==
[2020-01-31 15:30] VITALS: BMI 28.6
[2021-02-12 17:38] LABS: Absolute Lymphocyte Count 1.82 X10^3/uL (0.83-4.51); Absolute Neutrophil Count 4.1 X10^3/uL (2.0-7.7); Basophil# 0.05 X10^3/uL; Basophil% 0.7 % (0-1); Eosinophil# 0.11 X10^3/uL; Eosinophils% 1.6 % (0-5); Hematocrit 41.4 % (40-54); Hemoglobin 13.3 g/dL (13.0-16.5); Lymphocyte # 1.82 X10^3/ul (0.83-4.51); Lymphocyte % 26.5 % (19-41); Mean Corp Hgb Conc 32.1 g/dL (32-36); Mean Corpuscular Hgb 30.2 pg (27.0-32.0); Mean Corpuscular Volume 94.1 fL (80-94); Mean Platelet Vol. 9.2 fl (6.2-12.0); Monocyte# 0.62 X10^3/uL; NRBC Flagged by Analyzer 0 % (0-5); Neutrophil # 4.13 X10^3/uL (2.7-7.7); Platelet Count 273 K/mm3 (150-450); RBC Distribution Width CV 13.3 % (11.6-14.6); RBC Distribution Width SD 45.8 fl (35.1-43.9); White Blood Count 6.9 K/mm3 (4.4-11.0)
[2021-02-12 17:54] LABS: Rheumatoid Factor < 10.0 IU/mL (<15)
[2021-02-12 18:11] LABS: Erythrocyte Sedimentation Rate 9 mm/hr (0-20)
[2021-02-14 15:09] LABS: PROEL- A/G Ratio 1.2 (0.7-1.7); PROEL- Albumin 3.6 g/dL (2.9-4.4); PROEL- Alpha-1 Globulin 0.2 g/dL (0.0-0.4); PROEL- Alpha-2 Globulin 0.9 g/dL (0.4-1.0); PROEL- Gamma Globulin 0.8 g/dL (0.4-1.8); PROEL- Globulin, Total 2.9 g/dL (2.2-3.9); PROEL- TOTAL PROTEIN 6.5 g/dL (6.0-8.5)
== END ==
PROVIDERS: PCP Family Medicine; Referring Provider Orthopaedic Surgery; Visit Provider Orthopaedic Surgery
DX: M51.36 Other intervertebral disc degeneration, lumbar region (principal)
CPT/HCPCS: 36415; 84165; 85025; 85652; 86431

== ENCOUNTER → 2021-02-22 09:18 | Outpatient (CLI) | payer MEDICARE, SELFPAY ==
[2020-01-31 15:30] VITALS: BMI 28.6
--- NOTE | 2021-02-22 09:22 | NM_ITS ---
CLINICAL: 50-year-old male with reported history of diffuse arthralgia. WHOLE BODY 99m Tc MDP RADIONUCLIDE BONE SCINTIGRAPHY COMPARISON: MRI of the lumbar spine report 01/24/2021 FINDINGS: Following the intravenous administration of 24.8 mCi of 99m Tc MDP, whole body bone images reveal: 1. Increased radiopharmaceutical concentration is identified in the acromioclavicular and sternoclavicular compartments of both shoulders, bilateral elbows, knees bilaterally, mid and lower cervical spine posteriorly on the left and right. 2. The remaining skeletal structures are scintigraphically unremarkable with normal-appearing renal images and urinary bladder activity identified. NM/Bone Scan Whole Body IMPRESSION: 1. The increase in radiopharmaceutical concentration identified in the right and left shoulders, both elbow articulations, knees bilaterally, the cervical spine is most consistent with degenerative arthritis. 2. There is no definitive scintigraphic evidence of large articulation synovial inflammation or trauma-fracture on the present examination. Electronically Signed: Heri Valdez DO at 21:55 EDT Tel , Service support ,
== END ==
PROVIDERS: PCP Family Medicine; Referring Provider Orthopaedic Surgery; Visit Provider Orthopaedic Surgery
DX: M51.36 Other intervertebral disc degeneration, lumbar region (principal)
CPT/HCPCS: 78306; A9503

== ENCOUNTER → 2021-03-07 11:58 | Outpatient (CLI) | payer MEDICARE, SELFPAY ==
[2020-01-31 15:30] VITALS: BMI 28.6
[2021-03-07 15:25] LABS: Absolute Lymphocyte Count 1.67 X10^3/uL (0.83-4.51); Absolute Neutrophil Count 4.4 X10^3/uL (2.0-7.7); Basophil# 0.06 X10^3/uL; Basophil% 0.9 % (0-1); Eosinophil# 0.19 X10^3/uL; Eosinophils% 2.7 % (0-5); Hematocrit 43.2 % (40-54); Hemoglobin 13.6 g/dL (13.0-16.5); Lymphocyte # 1.67 X10^3/ul (0.83-4.51); Lymphocyte % 24.1 % (19-41); Mean Corp Hgb Conc 31.5 g/dL (32-36); Mean Corpuscular Hgb 29.8 pg (27.0-32.0); Mean Corpuscular Volume 94.5 fL (80-94); Mean Platelet Vol. 9.6 fl (6.2-12.0); Monocyte# 0.58 X10^3/uL; Monocyte% 8.4 % (0-10); NRBC Flagged by Analyzer 0 % (0-5); Neutrophil # 4.35 X10^3/uL (2.7-7.7); Neutrophil % 62.7 % (47-70); Platelet Count 257 K/mm3 (150-450); RBC Distribution Width CV 13.5 % (11.6-14.6); RBC Distribution Width SD 46.7 fl (35.1-43.9); Red Blood Count 4.57 M/mm3 (4.6-6.2); White Blood Count 6.9 K/mm3 (4.4-11.0)
[2021-03-07 15:40] LABS: Anion Gap 4 (5-15); BUN 15 mg/dL (7-18); BUN/Creat Ratio 7.5 RATIO (10-20); Chloride 106 mmol/L (98-107); EST Glomerular Filtration Rate 37 mL/min (>60); Est Glom Filt Rate - Afr Amer 45 mL/min (>60); Glucose 190 mg/dL (74-106); Potassium 4.4 mmol/L (3.5-5.1); Sodium Level 137 mmol/L (136-145)
== END ==
PROVIDERS: PCP Family Medicine; Referring Provider Family Medicine; Visit Provider Family Medicine
DX: N19 Unspecified kidney failure (principal); R53.83 Other fatigue
CPT/HCPCS: 36415; 80048; 85025

== ENCOUNTER → 2021-04-18 15:17 | Outpatient (CLI) | payer MEDICARE, SELFPAY ==
[2020-01-31 15:30] VITALS: BMI 28.6
[2021-04-18 18:24] LABS: Anion Gap 7 (5-15); BUN 14 mg/dL (7-18); BUN/Creat Ratio 7.2 RATIO (10-20); Calcium,Total 9.4 mg/dL (8.5-10.1); Chloride 108 mmol/L (98-107); Cholesterol 179 mg/dL (200); Creatinine, Serum 1.95 mg/dL (0.70-1.30); EST Glomerular Filtration Rate 38 mL/min (>60); Est Glom Filt Rate - Afr Amer 47 mL/min (>60); Glucose 142 mg/dL (74-106); High Density Lipoprotein 31 mg/dL; Potassium 3.9 mmol/L (3.5-5.1); Sodium Level 139 mmol/L (136-145); Triglycerides 511 mg/dL
== END ==
PROVIDERS: PCP Family Medicine; Referring Provider Family Medicine; Visit Provider Family Medicine
DX: E78.5 Hyperlipidemia, unspecified (principal)
CPT/HCPCS: 36415; 80048; 80061

== ENCOUNTER 2021-04-29 13:38 | Emergency (ER) | payer MEDICARE, SELFPAY ==
[2020-01-31 15:30] VITALS: BMI 28.6
[2021-04-29 13:39] VITALS: BP 113/80; PULSE 98; RESP 16; TEMP 36.8; BMI 28.6
--- NOTE | 2021-04-29 14:32 | EX.ED.GUMALE ---
HPI History of Present Illness Chief Complaint: Complaint Informant: patient Pain Onset: Days Context: Gradual Onset Timing: Intermittent Current Severity: Mild Maximum Severity: Mild Narrative Narrative: 50-year-old male history of CAD, hypertension, [id number] diabetes and chronic kidney disease secondary. Patient is concerned he might have a UTI due to mild dysuria. Is also concerned that his kidney function has gotten worse. He denies any edema or shortness of breath. No fever or chills. No vomiting or diarrhea. Prior similar symptoms: Yes Recent Illness/Hospitalization: No PFSH PFSH Medical History Atherosclerosis of coronary artery of [place] heart without angina pectoris Chronic kidney disease, stage 3 (03/15/13) Chronic radicular lumbar pain Diabetes mellitus type II, controlled Essential hypertension History of ST elevation myocardial infarction (STEMI) (09/29/16) Hyperlipidemia Neurogenic bladder Nicotine dependence NSVT (nonsustained ventricular tachycardia) Osteoarthritis Palpitations Sleep-disordered breathing Spinal stenosis of lumbar region Home Medications escitalopram oxalate 5 mg PO DAILY 04/21/15 [History Last Taken 07/25/19] fish oil-dha-epa 1 each PO DAILY 04/21/15 [History Last Taken 07/25/19] allopurinol 100 mg PO DAILY 07/25/15 [History Last Taken 07/25/19] B complex with C 20-folic acid 1 mg PO DAILY 05/01/18 [History Last Taken 07/25/19] aspirin 81 mg PO DAILY@0800 05/01/18 [History Last Taken 07/25/19] atorvastatin 80 mg PO QHS 05/01/18 [History Last Taken 07/24/19] gabapentin 600 mg PO BID 05/01/18 [History Last Taken 07/25/19] hydrocodone-acetaminophen 1 tablet PO Q4H PRN PRN 05/01/18 [History Last Taken 07/22/19] glimepiride 1 mg PO DAILY 06/05/19 [History Last Taken 07/25/19] trimethoprim 100 mg tablet 100 mg PO QODAY PRN 02/17/20 [History Last Taken Unknown] isosorbide mononitrate 30 mg tablet,extended release 24 hr 30 mg PO BID #180 tablet 05/17/20 [Rx Last Taken Unknown] nitroglycerin 0.4 mg sublingual tablet 0.4 mg SL Q5M PRN #25 tablet 06/09/20 [Rx Last Taken Unknown] carvedilol 25 mg tablet 25 mg PO BID #180 tablet 07/27/20 [Rx Last Taken Unknown] clopidogrel 75 mg tablet See Rx Instructions .ROUTE .COMPLEX #90 tablet 07/27/20 [Rx Last Taken Unknown] furosemide 20 mg tablet 20 mg PO DAILY #90 tablet 07/27/20 [Rx Last Taken Unknown] esomeprazole magnesium 20 mg capsule,delayed release 20 mg PO DAILY #30 cap 07/31/20 [Rx Last Taken Unknown] cyclobenzaprine 10 mg PO DAILY PRN 08/12/20 [History Last Taken Unknown] meloxicam 7.5 mg PO DAILY 08/12/20 [History Last Taken Unknown] ranolazine 500 mg tablet,extended release,12 hr 500 mg PO BID tab 10/24/20 [History Last Taken Unknown] tizanidine 4 mg tablet 4 mg PO QHS tab 10/24/20 [History Last Taken Unknown] amlodipine 10 mg tablet 10 mg PO DAILY #90 tab 03/05/21 [Rx Last Taken Unknown] Allergy/AdvReac Type Severity Reaction Status Date / Time sulfamethoxazole Allergy Mild Rash Verified 04/29/21 13:40 [From Bactrim] trimethoprim [From Bactrim] Allergy Mild Rash Verified 04/29/21 13:40 bupropion [From Wellbutrin] AdvReac Elevated Verified 04/29/21 13:40 BP Family History Grandfather CAD (coronary artery disease) Surgical History History of coronary artery stent placement History of left heart catheterization History of renal stent ileoconduit placement percutaneous nephrostomy urethral stricture surgery urinary tract diverson Social History Smoking Status: Current every day smoker tobacco type: cigarettes ROS ROS ED ROS Narrative Dysuria. Review of Systems ROS Unobtainable: Denies due to encephalopathy Constitutional Constitutional ED: Denies chills or fever(s) Eyes Eyes: Denies change in vision ENT ENT ED: Denies ear pain or sore throat Cardiovascular Cardiovascular: Denies chest pain Respiratory/Chest Respiratory/Chest: Denies cough or dyspnea Gastrointestinal Gastrointestinal: Denies abdominal pain, diarrhea, nausea or vomiting Genitourinary Genitourinary ED: Reports dysuria; Denies hematuria Musculoskeletal Musculoskeletal: Denies myalgias Integumentary Denies rash Neurologic Neurologic: Denies headache(s) Psychiatric Psychiatric: Denies depression Endocrine Endocrinology: Denies polyuria Hematologic/Lymphatic Hematologic/Lymphatic: Denies easy bruising Allergic/Immunologic Allergic/Immunologic ED: Denies urticaria EXAM Physical Exam Narrative Exam Narrative: Right male no acute distress vital signs stable afebrile. HEENT exam unremarkable. Neck nontender. Lungs clear to auscultation. Heart regular rhythm no murmur. Abdomen soft nontender. Moving all 4 extremities. No edema. Neurologically awake and alert, no focal motor deficits Const Vital Signs: 04/29/21 13:39 Temperature 98.3 F Temperature Source Temporal Pulse Rate 98 Respiratory Rate 16 Blood Pressure 113/80 Blood Pressure Mean 91 Positive well nourished and well developed; Negative for cachectic, contractures or unkempt General Appearance ED: well developed and NAD; Negative for unkempt, cachectic, contractures or pallor Nutritional Appearance: Negative for cachectic HEENT Reports moist mucous membranes normocephalic and atraumatic; Negative for trauma or tenderness Eyes PERRL and EOMs intact bilaterally Neck no lymphadenopathy and supple Resp normal respiratory effort and clear to auscultation bilaterally Auscultation: Negative for rales or rhonchi Cardio regular rate, regular rhythm, S1 normal heart sound, S2 normal heart sound and no murmurs GI non-tender, non-distended and no masses Auscultation: normoactive bowel sounds; Negative for hyperactive bowel sounds Palpation: soft Rectal Exam: Negative for tenderness no CVA tenderness Back/Spine no CVA tenderness General Back: Negative for CVA tenderness Extremity normal to inspection General Extremety ED: Negative for edema or tenderness General Extremity: Negative for edema Neuro oriented x3, moves all extremities and no focal motor deficits Sensorium / Orientation: alert, oriented to person, oriented to place and oriented to time Psych mental status grossly normal Appearance: Negative for unkempt Skin General Skin Exam: Negative for jaundice or pallor Lesions: no lesions Rashes: no rashes MDM MDM MDM Narrative Medical decision making narrative: Middle-aged male with dysuria urinalysis obese and is also concerned because he has stage III kidney disease and he believes is going into stage IV kidney disease wants me to check a BMP. Repeat exam at 3:53 PM unchanged. Patient be discharged home with outpatient follow-up. Lab Data Attestation: I reviewed the patient's lab results. Lab results narrative: BMP shows gap of 5. BUN is 16 creatinine 1.92. Urinalysis shows no reds, no white cells no bacteria no nitrites Urinalysis shows Labs: Laboratory Results - last 24 hr 04/29/21 04/29/21 13:50 14:43 Sodium 137 Potassium 4.0 Chloride 107 Carbon Dioxide 25.0 Anion Gap 5 BUN 16 Creatinine 1.92 H Estim Creat Clear Calc 50.86 Est GFR (MDRD) Af Amer 47 L Est GFR (MDRD) Non-Af 39 L BUN/Creatinine Ratio 8.3 L Glucose 312 H Calcium 8.9 Urine Color Yellow Urine Clarity Clear Urine pH 6.5 Ur Specific [place] 1.010 Urine Protein 100 H Urine Glucose (UA) Normal Urine Ketones Negative Urine Occult Blood Negative Urine Nitrite Negative Urine Bilirubin Negative Urine Urobilinogen Normal Ur Leukocyte Esterase 25 H Urine RBC 0 SEEN Urine WBC 0-5 SEEN Ur Squamous Epith Cells 0 SEEN Urine Bacteria 0 SEEN Urine Mucus 0 SEEN Discharge Plan Triage Chief Complaint: Complaint ED Provider: Justin Hayden Dx/Rx/DC Orders Clinical Impression: Chronic kidney disease, History of diabetes mellitus, Dysuria Instructions: Dysuria Prescriptions: No Action isosorbide mononitrate 30 mg tablet extended release 24 hr 30 mg PO BID Qty: 180 RF: 3 Hold Instructions: low BP tizanidine 4 mg tablet 4 mg PO QHS RF: 0 ranolazine [Ranexa] 500 mg tablet extended release 12 hr 500 mg PO BID RF: 0 fish oil-dha-epa 1 EACH capsule 1 each PO DAILY RF: 0 escitalopram oxalate 5 MG tablet 5 mg PO DAILY RF: 0 allopurinol 100 MG tablet 100 mg PO DAILY RF: 0 hydrocodone-acetaminophen 1 EACH tablet 1 tablet PO Q4H PRN PRN (Reason: Pain) RF: 0 gabapentin 300 MG capsule 600 mg PO BID RF: 0 B complex with C 20-folic acid 1 MG capsule 1 mg PO DAILY RF: 0 atorvastatin 80 MG tablet 80 mg PO QHS RF: 0 aspirin 81 MG tablet 81 mg PO DAILY@0800 RF: 0 trimethoprim 100 mg tablet 100 mg PO QODAY PRN (Reason: antibiotic) RF: 0 glimepiride 1 MG tablet 1 mg PO DAILY RF: 0 cyclobenzaprine 10 MG tablet 10 mg PO DAILY PRN (Reason: Pain 1-10 Or Fever) RF: 0 meloxicam 7.5 MG tablet 7.5 mg PO DAILY RF: 0 nitroglycerin 0.4 mg tablet, sublingual 0.4 mg SL Q5M PRN (Reason: chest pain) Qty: 25 RF: 3 clopidogrel 75 mg tablet See Rx Instructions .ROUTE .COMPLEX Qty: 90 RF: 4 carvedilol [Coreg] 25 mg tablet 25 mg PO BID Qty: 180 RF: 4 furosemide [Lasix] 20 mg tablet 20 mg PO DAILY Qty: 90 RF: 4 esomeprazole magnesium [Nexium] 20 mg capsule,delayed release(DR/EC) 20 mg PO DAILY Qty: 30 RF: 11 amlodipine 10 mg tablet 10 mg PO DAILY Qty: 90 RF: 3 Primary Care Provider: Brennan Ty Referrals: Brennan Ty MD [Primary Care Provider] - 1 Week if not improving Activity Restrictions/Additional Instructions: Your labs today were unremarkable. Your urine was not infected. Your creatinine was 1.92 which is actually better than when you normally run of 1.95-2.0 Follow-up with your doctor as needed. Disposition Disposition: Home, Self Care
[2021-04-29 14:43] LABS: Bacteria 0 SEEN /hpf (None Seen); Mucous, Urine 0 SEEN /hpf (<or=2+); Red Blood Cells-Urine 0 SEEN /hpf (0-5); Squamous Epithelial Cells - UA 0 SEEN /hpf (0-5)
[2021-04-29 14:45] LABS: Color, Urine Yellow (Yellow); Glucose, Dipstick Normal (Normal); Ketone-Dipstick Negative (Negative); Leukocyte Esterase-Dipstick 25 /ul (Negative); Nitrite-Dipstick Negative (Negative); Occult Blood-Urine Negative /ul (Negative); Protein-Dipstick 100 mg/dl (Negative); Urine Bilirubin Dipstick Negative (Negative); Urine Clarity Clear (Clear); Urine Urobilinogen Normal (Normal); Urine pH 6.5 (5.0 - 8.0)
[2021-04-29 14:59] LABS: White Blood Cells 0-5 SEEN /hpf (0-5)
[2021-04-29 15:27] LABS: Anion Gap 5 (5-15); BUN 16 mg/dL (7-18); BUN/Creat Ratio 8.3 RATIO (10-20); Calcium,Total 8.9 mg/dL (8.5-10.1); Chloride 107 mmol/L (98-107); Creatinine, Serum 1.92 mg/dL (0.70-1.30); EST Glomerular Filtration Rate 39 mL/min (>60); Est Glom Filt Rate - Afr Amer 47 mL/min (>60); Estimated Creatinine Clearance 50.86 ml/min; Glucose 312 mg/dL (74-106); Sodium Level 137 mmol/L (136-145)
[2021-04-29 16:02] VITALS: BP 132/74; PULSE 89; RESP 15; O2SAT 99
== END 2021-04-29 16:18 | disposition home or self-care (01) ==
PROVIDERS: Emergency Provider Emergency Medicine; PCP Family Medicine
DX: R30.0 Dysuria (principal); E66.9 Obesity, unspecified; F17.210 Nicotine dependence, cigarettes, uncomplicated; I25.10 Atherosclerotic heart disease of native coronary artery without angina pectoris; E11.22 Type 2 diabetes mellitus with diabetic chronic kidney disease; I12.9 Hypertensive chronic kidney disease with stage 1 through stage 4 chronic kidney disease, or unspecified chronic kidney disease; N18.30 Chronic kidney disease, stage 3 unspecified; I25.2 Old myocardial infarction; Z95.5 Presence of coronary angioplasty implant and graft
CPT/HCPCS: 80048; 81001; 99284; A4216

== ENCOUNTER 2021-07-22 04:06 | Emergency (ER) | payer MEDICARE, SELFPAY ==
[2020-01-31 15:30] VITALS: BMI 28.6
[2021-07-22 04:07] VITALS: BP 122/97; PULSE 65; RESP 13; TEMP 36.5; O2SAT 97; BMI 27.5
[2021-07-22 04:20] VITALS: BP 109/75; BP 91/72; BP 99/80; PULSE 58; PULSE 60
--- NOTE | 2021-07-22 04:20 | EKG12_ITS ---
Test Reason : ALT LOC Blood Pressure : / mmHG Vent. Rate : 062 BPM Atrial Rate : 062 BPM P-R Int : 164 ms QRS Dur : 088 ms QT Int : 420 ms P-R-T Axes : 007 024 053 degrees QTc Int : 426 ms Normal sinus rhythm Normal ECG Confirmed by TEVIN ROBERTS, UMAIR ([id number]), editor dictionary EZEQUIEL LUDWIG ([id number]) on 07/23/2021 11:43:35 A M Referred By: DR HUTCHISON Confirmed By:ALICIA ABARCA MD
--- NOTE | 2021-07-22 04:22 | EX.ED.DYSGE1 ---
HPI History of Present Illness Chief Complaint: LOC Informant: patient and spouse/S.O. Onset/Context/Timing Onset: Today and Hours Context: Sudden Onset Timing: Intermittent Associated Symptoms Associated Symptoms ED: Negative for abdominal pain or amnesia Narrative Narrative: 51-year-old male significant past medical history for CAD, UT, 2 cardiac stents on Plavix. Also history of chronic kidney disease, diabetes, hypertension and spinal stenosis. He has been feeling well recently. Today to get up to use the restroom while in the bathroom urinating he had a syncopal episode. No known seizure history. He has passed out before in the past. Prior to the event he does not remember any chest pain or shortness of breath. He does not remember any recent illness. When his heard him fall she went to the restroom she said he was nauseated and vomiting at that time. He had some myoclonic jerking but was not seizing. Prior similar symptoms: Yes Recent Illness/Hospitalization: No PFSH PFS Medical History Atherosclerosis of coronary artery of [place] heart without angina pectoris Chronic kidney disease, stage 3 (03/15/13) Chronic radicular lumbar pain Diabetes mellitus type II, controlled Essential hypertension History of ST elevation myocardial infarction (STEMI) (09/29/16) Hyperlipidemia Neurogenic bladder Nicotine dependence NSVT (nonsustained ventricular tachycardia) Osteoarthritis Palpitations Sleep-disordered breathing Spinal stenosis of lumbar region Home Medications escitalopram oxalate 5 mg PO DAILY 04/21/15 [History Last Taken 07/25/19] fish oil-dha-epa 1 each PO DAILY 04/21/15 [History Last Taken 07/25/19] allopurinol 100 mg PO DAILY 07/25/15 [History Last Taken 07/25/19] B complex with C 20-folic acid 1 mg PO DAILY 05/01/18 [History Last Taken 07/25/19] aspirin 81 mg PO DAILY@0800 05/01/18 [History Last Taken 07/25/19] gabapentin 600 mg PO BID 05/01/18 [History Last Taken 07/25/19] hydrocodone-acetaminophen 1 tablet PO Q4H PRN PRN 05/01/18 [History Last Taken 07/22/19] trimethoprim 100 mg tablet 100 mg PO QODAY PRN 02/17/20 [History Last Taken Unknown] nitroglycerin 0.4 mg sublingual tablet 0.4 mg SL Q5M PRN #25 tablet 06/09/20 [Rx Last Taken Unknown] esomeprazole magnesium 20 mg capsule,delayed release 20 mg PO DAILY #30 cap 07/31/20 [Rx Last Taken Unknown] cyclobenzaprine 10 mg PO DAILY PRN 08/12/20 [History Last Taken Unknown] meloxicam 7.5 mg PO DAILY 08/12/20 [History Last Taken Unknown] tizanidine 4 mg tablet 4 mg PO QHS tab 10/24/20 [History Last Taken Unknown] amlodipine 10 mg tablet 10 mg PO DAILY #90 tab 05/30/21 [Rx Last Taken Unknown] atorvastatin 80 mg tablet 80 mg PO QHS #90 tab 05/30/21 [Rx Last Taken Unknown] carvedilol 25 mg tablet 25 mg PO BID #180 tablet 05/30/21 [Rx Last Taken Unknown] clopidogrel 75 mg tablet See Rx Instructions .ROUTE .COMPLEX #90 tablet 05/30/21 [Rx Last Taken Unknown] furosemide 20 mg tablet 20 mg PO DAILY #90 tablet 05/30/21 [Rx Last Taken Unknown] glimepiride 1 mg tablet 4 mg PO BID tab 05/30/21 [History Last Taken Unknown] isosorbide mononitrate 30 mg tablet,extended release 24 hr 30 mg PO BID #180 tablet 05/30/21 [Rx Last Taken Unknown] ranolazine 500 mg tablet,extended release,12 hr 500 mg PO BID #180 tab 05/30/21 [Rx Last Taken Unknown] catheter 07/22/21 [History Last Taken Unknown] pregabalin [Lyrica] 100 mg PO BID 07/22/21 [History Last Taken Unknown] Allergy/AdvReac Type Severity Reaction Status Date / Time sulfamethoxazole Allergy Mild Rash Verified 07/22/21 04:18 [From Bactrim] trimethoprim [From Bactrim] Allergy Mild Rash Verified 07/22/21 04:18 bupropion [From Wellbutrin] AdvReac Elevated Verified 07/22/21 04:18 BP Family History Grandfather CAD (coronary artery disease) Surgical History History of coronary artery stent placement History of left heart catheterization History of renal stent ileoconduit placement percutaneous nephrostomy urethral stricture surgery urinary tract diverson Social History Smoking Status: Current every day smoker tobacco type: cigarettes ROS ROS ED ROS Narrative Denies recent illness. Today after he passed out he had some nausea and vomiting. Review of Systems ROS Unobtainable: Denies due to encephalopathy Constitutional Constitutional ED: Denies anorexia or body ache(s) Eyes Eyes: Denies blindness or bloody eye ENT ENT ED: Denies bloody eye, change in voice, ear pain or epistaxis Cardiovascular Cardiovascular: Denies abdominal pain Respiratory/Chest Respiratory/Chest: Denies chest tightness or cough Gastrointestinal Gastrointestinal: Reports vomiting; Denies rectal bleeding Genitourinary Genitourinary ED: Denies flank pain Musculoskeletal Musculoskeletal: Reports none; Denies deformity Neurologic Neurologic: Denies abnormal speech or focal weakness Psychiatric Psychiatric: Denies anxiety or confusion Endocrine Endocrinology: Denies cold intolerance or deepening of the voice Hematologic/Lymphatic Hematologic/Lymphatic: Denies lymphadenopathy Allergic/Immunologic Allergic/Immunologic ED: Denies lip swelling or mouth swelling EXAM Physical Exam Narrative Exam Narrative: Middle-age male vital signs are stable afebrile. H EENT exam unremarkable. A dull find any signs of head trauma. There is no tenderness. No swelling. No lacerations or contusions. No hematomas. There is no facial trauma. No facial droop. Normal speech. Neck nontender. Trachea midline. Lungs clear to auscultation bilaterally. Heart regular rate and rhythm rate about 65 no murmur. Chest wall nontender ribs are nontender. Abdomen soft nontender. Pelvic girdle intact. Patient is moving all 4 extremities. There is nontender. Normal range of motion. Normal bilingual medical assistant strength. Normal dorsi plantar flexion. Back nontender no signs of trauma. Neurologically is awake alert. He is answering questions following commands. GCS is 15. Const Vital Signs: 07/22/21 04:07 07/22/21 04:20 Temperature 97.7 F L Temperature Source Temporal Pulse Rate 65 Pulse Rate [Lying] 60 Pulse Rate [Standing (for 1 minute prior to obtaining)] 58 L Respiratory Rate 13 Blood Pressure 122/97 H Blood Pressure [Lying] 109/75 Blood Pressure [Sitting (for 1 minute prior to obtaining)] 99/80 Blood Pressure [Standing (for 1 minute prior to obtaining)] 91/72 Blood Pressure Mean 105 Blood Pressure Mean [Lying] 86 Blood Pressure Mean [Sitting (for 1 minute prior to obtaining)] 86 Blood Pressure Mean [Standing (for 1 minute prior to obtaining)] 78 Pulse Ox 97 Oxygen Delivery Method Room Air Room Air Positive well nourished, well developed, alert, oriented x3, no apparent distress, average body habitus, no limitations and healthy appearing; Negative for obese, cachectic, contractures or unkempt General Appearance ED: active, cooperative, comfortable, well kempt and well developed; Negative for unkempt, cachectic or contractures Nutritional Appearance: Negative for cachectic or obese HEENT Reports normocephalic and dentition normal normocephalic and normal to inspection Neck full ROM, No nuchal rigidity, no lymphadenopathy, supple, no meningeal signs, no JVD, No thyroid normal and No nodes Lymph Lymphatic: no lymphadenopathy noted and no lymphedema noted; Negative for lymphedema or lymphadenopathy Chest Wall inspection of chest normal and palpation of chest normal; Negative for inspection of breasts normal or palpation of breasts normal Resp normal respiratory effort, normal air movement, no retractions, no use of accessory muscles and clear to auscultation bilaterally Cardio regular rate, regular rhythm, S1 normal heart sound, S2 normal heart sound, no murmurs, no rub, no gallops, no clicks and no JVD; Negative for diaphoretic GI normal to inspection, nondistended, normoactive bowel sounds, soft to palpation, non-tender, non-distended, hepatosplenomegaly, no masses and no bruits Back/Spine no CVA tenderness, normal ROM, normal to inspection, thoracic and lumbar spine normal to inspection and no thoracic nor lumbar tenderness Neuro oriented x3, moves all extremities and no focal motor deficits Motor Exam: strength 5/5 throughout Psych mental status grossly normal, thought process normal, cooperative, affect normal, speech normal and activity/motor behavior normal Appearance: Negative for unkempt Skin no rashes or lesions noted, no wounds, no jaundice, no petechiae and no mottling MDM MDM MDM Narrative Medical decision making narrative: 51-year-old male with syncope. Exam unremarkable. Undergo cardiac work-up with orthostatic vital signs. Repeat exam patient is doing well. Vital signs are stable. He and I discussed different causes of syncope. I explained to him I did not have a specific cause. This could be micturition syncope or may been from something else. He has extensive cardiac history. He understands that. I explained to the patient and we could admit him for further evaluation and cardiac monitoring which she does not want. He does not want to be admitted to the hospital. His is comfortable with him going home and they will follow up as an outpatient. He knows to return if worse. 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 Lab Data Attestation: I reviewed the patient's lab results. Lab results narrative: CBC normal. White count 9. H&H of 14 and 45. Chemistries unremarkable gap of 7 BUN and creatinine of 21 and 1.8. He is at history of renal insufficiency. Glucose 137. Troponin normal at 7. Labs: Laboratory Results - last 24 hr 07/22/21 07/22/21 03:48 03:48 WBC 9.9 RBC 5.15 Hgb 14.9 Hct 45.9 MCV 89.1 MCH 28.9 MCHC 32.5 RDW Std Deviation 46.8 H RDW Coeff of [place] 14.3 Plt Count 299 MPV 9.7 Immature Gran % (Auto) 0.800 Neut % (Auto) 57.3 Lymph % (Auto) 29.2 [place] % (Auto) 9.1 Eos % (Auto) 2.8 Baso % (Auto) 0.8 Absolute Neuts (auto) 5.7 Absolute Lymphs (auto) 2.89 Nucleated RBC % 0 Sodium 138 Potassium 3.9 Chloride 109 H Carbon Dioxide 22.0 Anion Gap 7 BUN 21 H Creatinine 1.82 H Estim Creat Clear Calc 53.05 Est GFR (MDRD) Af Amer 50 L Est GFR (MDRD) Non-Af 42 L BUN/Creatinine Ratio 11.5 Glucose 157 H Calcium 8.7 Troponin I High Sens 7 Radiography Chest X-Ray - ED: 1 View, Read by ED Physician, Heart, Lungs, Mediastinum, Bony Structures, No Acute Disease and Chronic Changes Diagnostic Testing: Clinical Impression(s) from Imaging Studies Chest X-Ray 07/22/21 04:[address] 07/22/21 04:44 IMPRESSION: Normal unenhanced CT scan of the brain. Electronically Signed: Adarsh Amanda MD at 4:58 EDT , Chest x-ray showed no acute abnormality. Portable, single view interpreted by myself. Normal cardiac silhouette mediastinum. Normal lung goodson. No obvious bony abnormalities. Rhythm Strip Rhythm Strip: Sinus Rhythm Rate: 62 Ectopy: None EKG Initial EKG: Attestation: I personally reviewed and interpreted this EKG as follows: Interpretation: Sinus Rhythm and No Acute Injury Pattern Comments: Normal sinus rhythm rate of 65. No acute signs of UT or ischemia. Discharge Plan Triage Chief Complaint: LOC ED Provider: Justin Hayden Dx/Rx/DC Orders Clinical Impression: Syncope, Chronic kidney disease, stage 3, History of diabetes mellitus, History of coronary artery disease, Closed head injury Instructions: ED Head Injury (Adult), ED Hypotension, Orthostatic, ED Fainting, Uncertain Cause Prescriptions: No Action tizanidine 4 mg tablet 4 mg PO QHS RF: 0 amlodipine 10 mg tablet 10 mg PO DAILY Qty: 90 RF: 3 atorvastatin 80 mg tablet 80 mg PO QHS Qty: 90 RF: 3 carvedilol [Coreg] 25 mg tablet 25 mg PO BID Qty: 180 RF: 4 clopidogrel 75 mg tablet See Rx Instructions .ROUTE .COMPLEX Qty: 90 RF: 4 furosemide [Lasix] 20 mg tablet 20 mg PO DAILY Qty: 90 RF: 4 isosorbide mononitrate 30 mg tablet extended release 24 hr 30 mg PO BID Qty: 180 RF: 3 Hold Instructions: low BP ranolazine [Ranexa] 500 mg tablet extended release 12 hr 500 mg PO BID Qty: 180 RF: 3 fish oil-dha-epa 1 EACH capsule 1 each PO DAILY RF: 0 escitalopram oxalate 5 MG tablet 5 mg PO DAILY RF: 0 allopurinol 100 MG tablet 100 mg PO DAILY RF: 0 hydrocodone-acetaminophen 1 EACH tablet 1 tablet PO Q4H PRN PRN (Reason: Pain) RF: 0 gabapentin 300 MG capsule 600 mg PO BID RF: 0 B complex with C 20-folic acid 1 MG capsule 1 mg PO DAILY RF: 0 aspirin 81 MG tablet 81 mg PO DAILY@0800 RF: 0 trimethoprim 100 mg tablet 100 mg PO QODAY PRN (Reason: antibiotic) RF: 0 glimepiride 1 mg tablet 4 mg PO BID RF: 0 cyclobenzaprine 10 MG tablet 10 mg PO DAILY PRN (Reason: Pain 1-10 Or Fever) RF: 0 meloxicam 7.5 MG tablet 7.5 mg PO DAILY RF: 0 (DME) catheter 14-6 Fr- Misc MISCELLANEOUS RF: 0 pregabalin [Lyrica] 100 mg Capsule 100 mg PO BID RF: 0 nitroglycerin 0.4 mg tablet, sublingual 0.4 mg SL Q5M PRN (Reason: chest pain) Qty: 25 RF: 3 esomeprazole magnesium [Nexium] 20 mg capsule,delayed release(DR/EC) 20 mg PO DAILY Qty: 30 RF: 11 Primary Care Provider: Brennan Ty Referrals: Ming Louis MD [STAFF PHYSICIAN] - As soon as possible Brennan Ty MD [Primary Care Provider] - As soon as possible Activity Restrictions/Additional Instructions: Ice to your left forehead. Tylenol for pain. Follow-up with your primary care physician or your courtesy van driver to discuss with them possible outpatient cardiac monitoring. Return if you pass out again or you develop a severe headache or intractable vomiting or not acting yourself. Disposition Disposition: Home, Self Care
--- NOTE | 2021-07-22 04:40 | RAD_ITS ---
STUDY: X-RAY CHEST REASON FOR EXAM: Male, 51 years old. chest pain TECHNIQUE: AP portable upright COMPARISON: None. FINDINGS: The lungs are clear and expanded. There is minimal atelectasis at the left base laterally. There is no demonstrated pleural abnormality. Normal size heart. Normal mediastinum and jayde. Normal visualized pulmonary arteries. Normal visualized aortic arch and descending thoracic aorta. Normal visualized thoracic spine. Normal visualized ribs, clavicles, and shoulders. There is no demonstrated abnormality of the visualized soft tissue structures of the upper abdomen. IMPRESSION: There is minimal atelectasis at the left base. Electronically Signed: Adarsh Amanda MD at 5:11 EDT , RAD/Chest 1 View (Portable)
[2021-07-22 04:43] LABS: Absolute Lymphocyte Count 2.89 X10^3/uL (0.83-4.51); Absolute Neutrophil Count 5.7 X10^3/uL (2.0-7.7); Basophil# 0.08 X10^3/uL; Basophil% 0.8 % (0-1); Eosinophil# 0.28 X10^3/uL; Eosinophils% 2.8 % (0-5); Hematocrit 45.9 % (40-54); Hemoglobin 14.9 g/dL (13.0-16.5); Lymphocyte # 2.89 X10^3/ul (0.83-4.51); Lymphocyte % 29.2 % (19-41); Mean Corp Hgb Conc 32.5 g/dL (32-36); Mean Corpuscular Hgb 28.9 pg (27.0-32.0); Mean Corpuscular Volume 89.1 fL (80-94); Mean Platelet Vol. 9.7 fl (6.2-12.0); Monocyte% 9.1 % (0-10); NRBC Flagged by Analyzer 0 % (0-5); Neutrophil # 5.66 X10^3/uL (2.7-7.7); Neutrophil % 57.3 % (47-70); Platelet Count 299 K/mm3 (150-450); RBC Distribution Width CV 14.3 % (11.6-14.6); RBC Distribution Width SD 46.8 fl (35.1-43.9); Red Blood Count 5.15 M/mm3 (4.6-6.2); White Blood Count 9.9 K/mm3 (4.4-11.0)
--- NOTE | 2021-07-22 04:44 | CT_ITS ---
STUDY: CT BRAIN WITHOUT CONTRAST REASON FOR EXAM: Male, 51 years old. head trauma RADIATION DOSAGE (If Supplied By Facility): CTDIvol = ( 44.99 ) mGy, DLP = ( 863.60 ) mGycm TECHNIQUE: Transaxial CT imaging of the brain was performed without administration of intravenous contrast material. Individualized dose optimization techniques were used for this CT. COMPARISON: No relevant priors. FINDINGS: Normal soft tissue structures. Normal calvarium. Normal size ventricles and extra-axial spaces for the patient''s age. Normal white matter tracts of the cerebral hemispheres. Normal basal ganglia and thalami. Normal brainstem. Normal cerebellum. There is no intracranial hemorrhage. There are no findings of an acute ischemic infarction. Normal visualized paranasal sinuses. CT/Brain/Head without Contrast IMPRESSION: Normal unenhanced CT scan of the brain. Electronically Signed: Adarsh Amanda MD at 4:58 EDT ,
[2021-07-22 04:58] LABS: Anion Gap 7 (5-15); BUN 21 mg/dL (7-18); BUN/Creat Ratio 11.5 RATIO (10-20); Calcium,Total 8.7 mg/dL (8.5-10.1); Chloride 109 mmol/L (98-107); Creatinine, Serum 1.82 mg/dL (0.70-1.30); EST Glomerular Filtration Rate 42 mL/min (>60); Est Glom Filt Rate - Afr Amer 50 mL/min (>60); Estimated Creatinine Clearance 53.05 ml/min; Glucose 157 mg/dL (74-106); Potassium 3.9 mmol/L (3.5-5.1); Sodium Level 138 mmol/L (136-145); Troponin-I HS 7 pg/mL (3.0-78.0)
[2021-07-22 06:22] VITALS: BP 115/77; PULSE 64; RESP 14; O2SAT 93
[2021-07-22] MEDS: Acetaminophen 325 MG Tablet 650 MG PO (06:47)
== END 2021-07-22 06:51 | disposition home or self-care (01) ==
PROVIDERS: Emergency Provider Emergency Medicine; PCP Family Medicine; Visit Provider Emergency Medicine
DX: R55 Syncope and collapse (principal); N18.30 Chronic kidney disease, stage 3 unspecified; I25.10 Atherosclerotic heart disease of native coronary artery without angina pectoris; S09.90XA Unspecified injury of head, initial encounter; I25.2 Old myocardial infarction; E78.5 Hyperlipidemia, unspecified; Z79.01 Long term (current) use of anticoagulants; Z79.82 Long term (current) use of aspirin; Z79.899 Other long term (current) drug therapy; W19.XXXA Unspecified fall, initial encounter
CPT/HCPCS: 70450; 71045; 80048; 84484; 85025; 93005; 99285

== ENCOUNTER 2021-08-01 16:07 | Outpatient (CLI) | payer MEDICARE, SELFPAY ==
[2020-01-31 15:30] VITALS: BMI 28.6
[2021-08-01 18:25] LABS: Cholesterol 183 mg/dL (200); High Density Lipoprotein 36 mg/dL; Triglycerides 307 mg/dL; Very Low Density Lipoprotein 61 mg/dL (5-40)
== END 2021-08-01 23:59 | disposition home or self-care (01) ==
LOC: MFPLAB 16:07
PROVIDERS: PCP Family Medicine; Referring Provider Family Medicine; Visit Provider Family Medicine
DX: E11.9 Type 2 diabetes mellitus without complications (principal)
CPT/HCPCS: 36415; 80061

== ENCOUNTER → 2022-02-18 | Outpatient (CLI) | payer MEDICARE, SELFPAY ==
[2020-01-31 15:30] VITALS: BMI 28.6
[2022-02-18 18:33] LABS: Anion Gap 7 (5-15); BUN 19 mg/dL (7-18); BUN/Creat Ratio 9.7 RATIO (10-20); Calcium,Total 9.2 mg/dL (8.5-10.1); Chloride 105 mmol/L (98-107); Cholesterol 164 mg/dL (200); Creatinine, Serum 1.95 mg/dL (0.70-1.30); EST Glomerular Filtration Rate 38 mL/min (>60); Est Glom Filt Rate - Afr Amer 46 mL/min (>60); Glucose 143 mg/dL (74-106); High Density Lipoprotein 30 mg/dL; Potassium 3.7 mmol/L (3.5-5.1); Sodium Level 138 mmol/L (136-145); Triglycerides 323 mg/dL; Very Low Density Lipoprotein 65 mg/dL (5-40)
== END | disposition home or self-care (01) ==
LOC: MFPLAB 14:45
PROVIDERS: PCP Family Medicine; Referring Provider Family Medicine; Visit Provider Family Medicine
DX: Z00.00 Encounter for general adult medical examination without abnormal findings (principal); E78.5 Hyperlipidemia, unspecified; Z12.5 Encounter for screening for malignant neoplasm of prostate
CPT/HCPCS: 36415; 80048; 80061; 84153; G0103

== ENCOUNTER → 2022-03-21 | Outpatient (CLI) | payer MEDICARE, SELFPAY ==
[2020-01-31 15:30] VITALS: BMI 28.6
== END | disposition home or self-care (01) ==
PROVIDERS: PCP Family Medicine; Visit Provider Family Medicine
DX: R31.9 Hematuria, unspecified (principal)
CPT/HCPCS: 87077; 87086; 87088; 87186

== ENCOUNTER → 2022-05-02 | Outpatient (CLI) | payer MEDICARE, SELFPAY ==
[2020-01-31 15:30] VITALS: BMI 28.6
== END | disposition home or self-care (01) ==
PROVIDERS: PCP Family Medicine; Visit Provider Family Medicine
DX: Z20.822 Contact with and (suspected) exposure to COVID-19 (principal)
CPT/HCPCS: 87635; U0003; U0005

== ENCOUNTER → 2022-05-03 | Outpatient (CLI) | payer MEDICARE, SELFPAY ==
[2020-01-31 15:30] VITALS: BMI 28.6
--- NOTE | 2022-05-03 11:18 | RAD_ITS ---
INDICATION: KUB- LEFT FLANK PAIN EXAMINATION/TECHNIQUE: X-RAY - XR Abdomen 1 View COMPARISON: None FINDINGS: BOWEL GAS PATTERN: Non-obstructive. No bowel or stomach distention. FREE AIR: Not assessed on a single supine view. ORGANOMEGALY: Not seen. CALCIFICATIONS: No abnormal calcifications observed. LOWER CHEST: No acute pathology. BONES AND SOFT TISSUES: No acute pathology. RAD/Abdomen Single View IMPRESSION: No renal or ureteral stones seen. Electronically Signed: Jovanny Alcantara MD at 17:04 EST ,
[2022-05-03 11:21] LABS: Mucous, Urine 0 SEEN /hpf (<or=2+); Squamous Epithelial Cells - UA 0 SEEN /hpf (0-5)
[2022-05-03 12:37] LABS: Color, Urine Yellow (Yellow); Glucose, Dipstick Normal (Normal); Ketone-Dipstick Negative (Negative); Leukocyte Esterase-Dipstick 500 /ul (Negative); Nitrite-Dipstick Negative (Negative); Occult Blood-Urine 50 /ul (Negative); Protein-Dipstick 100 mg/dl (Negative); Specific Gravity, Urine 1.015 (1.002-1.030); Urine Bilirubin Dipstick Negative (Negative); Urine Clarity Sl. Cloudy (Clear); Urine Urobilinogen Normal (Normal); Urine pH 6.5 (5.0 - 8.0)
[2022-05-03 12:44] LABS: Bacteria 3+ /hpf (None Seen); Red Blood Cells-Urine 0-5 SEEN /hpf (0-5); White Blood Cells 25-50 SEEN /hpf (0-5)
[2022-05-03 13:24] LABS: Anion Gap 7 (5-15); BUN 13 mg/dL (7-18); BUN/Creat Ratio 7.1 RATIO (10-20); Calcium,Total 8.8 mg/dL (8.5-10.1); Chloride 105 mmol/L (98-107); Creatinine, Serum 1.82 mg/dL (0.70-1.30); EST Glomerular Filtration Rate 42 mL/min (>60); Est Glom Filt Rate - Afr Amer 50 mL/min (>60); Glucose 250 mg/dL (74-106); Potassium 4.1 mmol/L (3.5-5.1); Sodium Level 139 mmol/L (136-145)
== END | disposition home or self-care (01) ==
LOC: MTLAB 11:16
PROVIDERS: PCP Family Medicine; Referring Provider Family Medicine; Visit Provider Family Medicine
DX: R10.9 Unspecified abdominal pain (principal); N18.30 Chronic kidney disease, stage 3 unspecified; N31.9 Neuromuscular dysfunction of bladder, unspecified
CPT/HCPCS: 36415; 74018; 80048; 81001; 87077; 87086; 87088; 87186

== ENCOUNTER → 2022-06-21 | Outpatient (CLI) | payer MEDICARE, SELFPAY ==
[2020-01-31 15:30] VITALS: BMI 28.6
--- NOTE | 2022-06-21 14:31 | STRESSREP ---
Stress Test Report Pharmacologic myocardial perfusion stress test. 52-year-old man with a history of chest pain previous STEMI Resting EKG demonstrates sinus rhythm with a rate of 62 bpm. Resting blood pressure is 108/80 mmHg. 0.4 mg of regadenoson was infused per usual protocol followed by rapid intravenous saline flush injection. Continuous EKG monitoring was performed. The maximum heart rate was 97 bpm which was 58% of max impacted heart rate the maximum workload was 1 metabolic equivalent. At rest there were no ST or T wave changes noted to suggest ischemia and at peak infusion nonspecific ST changes were noted which did not meet the criteria for ischemia. No clinical angina is noted. The final blood pressure was 124/76 mmHg. Myocardial perfusion protocol. 14.1 mCi of technetium 99m sestamibi was injected at rest. 0.4 mg of regadenoson was infused per usual protocol. At peak infusion 44.2 mCi of technetium 99m sestamibi was injected stress images were obtained stress and rest images were reconstructed and compared in the short axis vertical long and horizontal long axis. Gated images were also obtained. Perfusion SPECT analysis: Review of the stress images demonstrate normal uptake of tracer noted in all areas of the myocardium. The resting images similar demonstrated normal uptake of tracer noted in all areas of the myocardium. No areas of reversibility are noted to suggest ischemia and no previous infarct is noted. Gated SPECT analysis: The gated ejection fraction is 56%. Conclusion: Normal pharmacologic myocardial perfusion stress test. Preserved ejection fraction.
== END | disposition home or self-care (01) ==
LOC: CVS 06:10
PROVIDERS: PCP Family Medicine; Referring Provider Internal Medicine Cardiovascular Disease; Visit Provider Internal Medicine Cardiovascular Disease
DX: R07.9 Chest pain, unspecified (principal); Z95.5 Presence of coronary angioplasty implant and graft
CPT/HCPCS: 78452; 93017; A9500; A4216; J2785

== ENCOUNTER → 2022-07-03 | Outpatient (CLI) | payer MEDICARE, SELFPAY ==
[2020-01-31 15:30] VITALS: BMI 28.6
[2022-07-03 17:39] LABS: Erythrocyte Sedimentation Rate 6 mm/hr (0-20)
[2022-07-03 17:41] LABS: Absolute Lymphocyte Count 2.15 X10^3/uL (0.83-4.51); Absolute Neutrophil Count 4.4 X10^3/uL (2.0-7.7); Basophil# 0.05 X10^3/uL; Basophil% 0.7 % (0-1); Eosinophil# 0.22 X10^3/uL; Hematocrit 46.7 % (40-54); Hemoglobin 15.5 g/dL (13.0-16.5); Lymphocyte # 2.15 X10^3/ul (0.83-4.51); Lymphocyte % 28.9 % (19-41); Mean Corp Hgb Conc 33.2 g/dL (32-36); Mean Corpuscular Hgb 29.7 pg (27.0-32.0); Mean Corpuscular Volume 89.5 fL (80-94); Mean Platelet Vol. 9.8 fl (6.2-12.0); Monocyte# 0.65 X10^3/uL; Monocyte% 8.7 % (0-10); NRBC Flagged by Analyzer 0 % (0-5); Neutrophil # 4.35 X10^3/uL (2.7-7.7); Neutrophil % 58.3 % (47-70); Platelet Count 248 K/mm3 (150-450); RBC Distribution Width CV 13.1 % (11.6-14.6); RBC Distribution Width SD 42.9 fl (35.1-43.9); Red Blood Count 5.22 M/mm3 (4.6-6.2); White Blood Count 7.5 K/mm3 (4.4-11.0)
[2022-07-03 18:39] LABS: AST(SGOT) 15 U/L (15-37); Alanine Aminotransfer ALT/SGPT 30 U/L (16-61); Albumin, Serum 3.5 g/dL (3.2-5.0); Alkaline Phosphatase 115 U/L (45-117); Anion Gap 8 (5-15); BUN 18 mg/dL (7-18); BUN/Creat Ratio 10.2 RATIO (10-20); Calcium,Total 8.9 mg/dL (8.5-10.1); Chloride 109 mmol/L (98-107); Creatinine, Serum 1.77 mg/dL (0.70-1.30); EST Glomerular Filtration Rate 43 mL/min (>60); Est Glom Filt Rate - Afr Amer 52 mL/min (>60); Globulin 3.5 g/dL (2.2-4.2); Glucose 172 mg/dL (74-106); Potassium 3.7 mmol/L (3.5-5.1); Sodium Level 140 mmol/L (136-145); Thyroid Stim Hormone (TSH) 0.86 uIU/mL (0.358-3.74)
[2022-07-05 15:50] LABS: Hemoglobin A1c 7.1 % (3.8-5.6)
== END | disposition home or self-care (01) ==
LOC: MFPLAB 16:56
PROVIDERS: PCP Family Medicine; Visit Provider Family Medicine
DX: R53.81 Other malaise (principal); R53.83 Other fatigue; R73.09 Other abnormal glucose; I95.9 Hypotension, unspecified
CPT/HCPCS: 36415; 80053; 83036; 84443; 85025; 85652

== ENCOUNTER → 2022-07-31 | Outpatient (CLI) | payer MEDICARE, SELFPAY ==
[2020-01-31 15:30] VITALS: BMI 28.6
[2022-07-31 13:48] LABS: Hemoglobin A1c 6.6 % (3.8-5.6)
== END | disposition home or self-care (01) ==
LOC: MFPLAB 11:58
PROVIDERS: PCP Family Medicine; Referring Provider Family Medicine; Visit Provider Family Medicine
DX: E11.9 Type 2 diabetes mellitus without complications (principal)
CPT/HCPCS: 36415; 83036

== ENCOUNTER 2022-09-23 00:46 | Emergency (ER) | payer MEDICARE, SELFPAY ==
[2020-01-31 15:30] VITALS: BMI 28.6
[2022-09-23 00:47] VITALS: BP 138/100; PULSE 75; RESP 17; TEMP 36.7; O2SAT 98; BMI 28.5
--- NOTE | 2022-09-23 01:10 | EKG12_ITS ---
Test Reason : DYSRHYTHMIA Blood Pressure : / mmHG Vent. Rate : 068 BPM Atrial Rate : 068 BPM P-R Int : 144 ms QRS Dur : 082 ms QT Int : 378 ms P-R-T Axes : 053 056 067 degrees QTc Int : 401 ms Normal sinus rhythm Normal ECG Confirmed by MOISES ROBERTS, MARGIE ([id number]), greeting card editor EZEQUIEL LUDWIG ([id number]) on 09/23/2022 10:24:07 AM Referred By: RADHA Confirmed By:MARGIE DE LEON MD
--- NOTE | 2022-09-23 01:20 | RAD_ITS ---
INDICATION: chest pain EXAMINATION/TECHNIQUE: X-RAY - XR Chest 1 View COMPARISON: 07/22/2021 chest radiograph. Findings: Single frontal view of the chest. LUNG PARENCHYMA: No acute focal airspace disease or mass lesion. PLEURA: No pleural effusion. No pneumothorax. HEART/GREAT VESSELS: Cardiomediastinal silhouette is unremarkable. BONES: Osseous structures are unremarkable for age. RAD/Chest 1 View (Portable) IMPRESSION: Chest with no acute disease. Electronically Signed: Harrison Kim MD at 2:40 EDT ,
[2022-09-23 01:25] LABS: Absolute Lymphocyte Count 2.04 X10^3/uL (0.83-4.51); Absolute Neutrophil Count 5.4 X10^3/uL (2.0-7.7); Basophil# 0.05 X10^3/uL; Basophil% 0.6 % (0-1); Eosinophil# 0.18 X10^3/uL; Eosinophils% 2.1 % (0-5); Hematocrit 45.8 % (40-54); Hemoglobin 15.1 g/dL (13.0-16.5); Lymphocyte # 2.04 X10^3/ul (0.83-4.51); Lymphocyte % 24.2 % (19-41); Mean Corpuscular Hgb 30.3 pg (27.0-32.0); Mean Platelet Vol. 9.7 fl (6.2-12.0); Monocyte# 0.67 X10^3/uL; NRBC Flagged by Analyzer 0 % (0-5); Neutrophil # 5.43 X10^3/uL (2.7-7.7); Neutrophil % 64.5 % (47-70); Platelet Count 228 K/mm3 (150-450); RBC Distribution Width CV 12.8 % (11.6-14.6); RBC Distribution Width SD 43.3 fl (35.1-43.9); Red Blood Count 4.98 M/mm3 (4.6-6.2); White Blood Count 8.4 K/mm3 (4.4-11.0)
[2022-09-23 01:44] LABS: Anion Gap 4 (5-15); BUN 15 mg/dL (7-18); Calcium,Total 8.8 mg/dL (8.5-10.1); Chloride 109 mmol/L (98-107); Creatinine, Serum 1.88 mg/dL (0.70-1.30); EST Glomerular Filtration Rate 40 mL/min (>60); Est Glom Filt Rate - Afr Amer 48 mL/min (>60); Estimated Creatinine Clearance 50.76 ml/min; Glucose 141 mg/dL (74-106); Magnesium 2.1 mg/dL (1.6-2.6); Potassium 4.3 mmol/L (3.5-5.1); Sodium Level 140 mmol/L (136-145); Troponin-I HS 7 pg/mL (3.0-78.0)
--- NOTE | 2022-09-23 01:58 | EDS_ITS ---
HPI History of Present Illness Chief Complaint: Palpitations Informant: patient and spouse/S.O. Narrative Narrative: Patient presents with just a lot of different feelings. He thinks these are likely due to taking tizanidine and hydrocodone along with meloxicam. He has taken more than he would normally take. But he is only had 3 tizanidine in the last day and 1 hydrocodone. He took this because he gets kidney pain pretty commonly. He states he had a very specific feeling in the pit of his abdomen but cannot describe it. Its not pain. Is not really nauseated. He is not having chest pain pressure or dyspnea. He does have a sense of palpitations and of just almost an anxiety type feeling. He just wanted to come in and get checked to make sure that this was not showing any acute issues because he has had kidney disease heart disease all is diabetes. No fevers recently. [facility] Medical History Atherosclerosis of coronary artery of [place] heart without angina pectoris Chronic kidney disease, stage 3 (03/15/13) Chronic radicular lumbar pain Diabetes mellitus type II, controlled Erectile dysfunction Essential hypertension History of ST elevation myocardial infarction (STEMI) (09/29/16) Hyperlipidemia Neurogenic bladder Nicotine dependence NSVT (nonsustained ventricular tachycardia) Osteoarthritis Palpitations Sleep-disordered breathing Spinal stenosis of lumbar region Syncope Home Medications escitalopram oxalate 5 mg tablet 5 mg PO DAILY depression 04/21/15 [History Last Taken 07/25/19] fish oil-dha-epa 1,200 mg-144 mg-216 mg capsule 1 each PO DAILY supplement 04/21/15 [History Last Taken 07/25/19] allopurinol 100 mg tablet 100 mg PO DAILY edema; uric acid 07/25/15 [History Last Taken 07/25/19] aspirin 81 mg tablet,delayed release 81 mg PO DAILY@0800 health maintenance 05/01/18 [History Last Taken 07/25/19] hydrocodone-acetaminophen 5-325mg 5mg-325mg 1 tablet PO Q4H PRN PRN Pain 05/01/18 [History Last Taken 07/22/19] trimethoprim 100 mg tablet 100 mg PO QODAY PRN antibiotic 02/17/20 [History Last Taken Unknown] nitroglycerin 0.4 mg sublingual tablet 0.4 mg sublingual Q5M PRN chest pain #25 tabs 06/09/20 [Rx Last Taken Unknown] cyclobenzaprine 10 mg tablet 10 mg PO DAILY PRN Pain 1-10 Or Fever 08/12/20 [History Last Taken Unknown] meloxicam 7.5 mg tablet 7.5 mg PO DAILY 08/12/20 [History Last Taken Unknown] atorvastatin 80 mg tablet 80 mg PO QHS cholesterol #90 tabs 05/30/21 [Rx Last Taken Unknown] catheter 14 Fr-6 07/22/21 [History Last Taken Unknown] esomeprazole magnesium 20 mg capsule,delayed release (Nexium) 20 mg PO DAILY #30 caps 02/25/22 [Rx Last Taken Unknown] amlodipine 10 mg tablet 10 mg PO DAILY #90 tabs 05/16/22 [Rx Last Taken Unknown] carvedilol 25 mg tablet (Coreg) 25 mg PO BID #180 tabs 05/16/22 [Rx Last Taken Unknown] clopidogrel 75 mg tablet See Rx Instructions .Route .COMPLEX #90 tabs 05/16/22 [Rx Last Taken Unknown] gabapentin 600 mg tablet 600 mg PO BID 06/04/22 [History Last Taken Unknown] glimepiride 4 mg tablet 4 mg PO BID 06/04/22 [History Last Taken Unknown] ranolazine 500 mg tablet,extended release,12 hr (Ranexa) 500 mg PO BID #180 tabs 06/04/22 [Rx Last Taken Unknown] tizanidine 4 mg tablet 4 mg PO QHS PRN 06/04/22 [History Last Taken Unknown] vitamin B complex-vitamin C-folic acid 0.8 mg tablet (Otilia-Prema) 1 tab PO DAILY 06/04/22 [History Last Taken Unknown] furosemide 20 mg tablet See Rx Instructions .Route .COMPLEX #90 tabs 07/22/22 [Rx Last Taken Unknown] isosorbide mononitrate 30 mg tablet,extended release 24 hr See Rx Instructions .Route .COMPLEX #180 tabs 07/22/22 [Rx Last Taken Unknown] Allergy/AdvReac Type Severity Reaction Status Date / Time sulfamethoxazole Allergy Mild Rash Verified 09/23/22 00:47 [From Bactrim] trimethoprim [From Bactrim] Allergy Mild Rash Verified 09/23/22 00:47 bupropion [From Wellbutrin] AdvReac Elevated Verified 09/23/22 00:47 BP Family History Grandfather CAD (coronary artery disease) Surgical History History of coronary artery stent placement (10/25/19) History of left heart catheterization History of renal stent ileoconduit placement percutaneous nephrostomy urethral stricture surgery urinary tract diverson Social History Smoking Status: Unknown if ever smoked alcohol intake: never substance use type: does not use caffeine: Yes Type: coffee Number of servings: 2 and tea ROS ROS ED ROS Narrative A complete review of systems was performed and is negative except as documented in the history of present illness. Some specific details below. Constitutional: No recent fevers or chills. He does have some mild sense of malaise. EYE: No discharge, visual complaints, or pain. ENT: No difficulty swallowing. No swelling. No pain. No reflux symptoms. CV: No chest pain. But he has had some palpitations. Respiratory: No coughing or trouble breathing. GI: No abdominal pain. No nausea vomiting diarrhea. No blood in stool. He just has a sense in the middle of his abdomen but it is hard to describe. : No frequency dysuria or hematuria. He occasionally gets kidney pain but is not having it at this moment. Musculoskeletal: No recent trauma. No pains. No swelling. Skin: No rash. Nondiaphoretic. Neuro: No weakness or numbness. Endocrine: No polyuria or polydipsia. EXAM Physical Exam Narrative Exam Narrative: CONSTITUTIONAL: Patient is nontoxic in appearance. The patient looks comfortable. Carries on a normal conversation without difficulty. HEENT: No notable trauma. Mucous membranes moist. . EYES: No conjunctival injection. No proptosis. No pallor. CARDIOVASCULAR: Regular rate. Regular rhythm. No notable murmur. No JVD. His heart sounds very regular. On the monitor appears as though he has a normal sinus rhythm with a rate of about 70. I see no ectopy on the monitor. RESPIRATORY: No respiratory distress. Breathing is unlabored. No wheezes. No rhonchi. No rales. No pain with a deep breath. GASTROINTESTINAL: Not distended. Bowel sounds are normal. No tenderness. No guarding. No rebound. No palpable mass. No bruit. Abdomen is overall quite benign. GENITOURINARY: No tenderness over the bladder. No CVA tenderness. MUSCULOSKELETAL: Atraumatic. No peripheral edema. No cord. No tenderness along the deep venous system. No asymmetry. NEUROLOGICAL: Patient is alert and appropriate. No focal deficit noted. SKIN: No noted rashes. No diaphoresis. PSYCHIATRIC: Patient is calm. Mood is appropriate. Const Vital Signs: 09/23/22 00:47 09/23/22 00:51 09/23/22 02:03 Temperature 98.1 F Temperature Source Temporal Pulse Rate 75 Respiratory Rate 17 Respiratory Effort Normal Non-Labored Blood Pressure 138/100 H Blood Pressure Mean 112 Pulse Ox 98 Oxygen Delivery Method Room Air Room Air 09/23/22 02:03 Temperature Temperature Source Pulse Rate 70 Respiratory Rate 17 Respiratory Effort Blood Pressure 152/103 H Blood Pressure Mean 119 Pulse Ox 95 Oxygen Delivery Method Room Air MDM MDM MDM Narrative Medical decision making narrative: Patient CBC shows normal white count hemoglobin platelets. Electrolytes showed creatinine about 1.88 which is really at his baseline. Glucose is well controlled at 141. Magnesium is normal at 2.1 Troponin is negative at 7. My independent interpretation of the patient's single view chest x-ray shows no acute process. Final reading is pending at this time. I talk with the patient about the findings. He thinks his symptoms were due to medicines which is certainly possible. He now also tells me that he has just run out of his gabapentin. He is on 600 twice a day. He was trying to call his physician but is the weekend. He is prescribed this regularly. Because of this, I told him I cannot prescribe more as this may break his pain contract. But I will give him a dose here which will help. He was happy with this plan. We discussed reasons to return and follow-up. Lab Data Attestation: I reviewed the patient's lab results. Labs: Laboratory Results - last 24 hr 09/23/22 09/23/22 01:10 01:10 WBC 8.4 RBC 4.98 Hgb 15.1 Hct 45.8 MCV 92.0 MCH 30.3 MCHC 33.0 RDW Std Deviation 43.3 RDW Coeff of [place] 12.8 Plt Count 228 MPV 9.7 Immature Gran % (Auto) 0.600 Neut % (Auto) 64.5 Lymph % (Auto) 24.2 [place] % (Auto) 8.0 Eos % (Auto) 2.1 Baso % (Auto) 0.6 Absolute Neuts (auto) 5.4 Absolute Lymphs (auto) 2.04 Nucleated RBC % 0 Sodium 140 Potassium 4.3 Chloride 109 H Carbon Dioxide 27.0 Anion Gap 4 L BUN 15 Creatinine 1.88 H Estim Creat Clear Calc 50.76 Est GFR (MDRD) Af Amer 48 L Est GFR (MDRD) Non-Af 40 L BUN/Creatinine Ratio 8.0 L Glucose 141 H Calcium 8.8 Magnesium 2.1 Troponin I High Sens 7 EKG Initial EKG: Comments: My independent interpretation of the patient's EKG done for a sense of palpitations shows a normal sinus rhythm with a rate of 68. No ectopy. No acute ST elevation or depression. NC interval, QRS duration and QTc are normal. This is a normal EKG. This EKG was also done while he was still having the symptoms. Discharge Plan Triage Chief Complaint: Palpitations ED Provider: Nicolas Olmstead Dx/Rx/DC Orders Clinical Impression: Palpitation, Chronic kidney disease, stage 3, Medication reaction Instructions: ED Drug Reaction, Other, ED Palpitations Prescriptions: No Action tizanidine 4 mg tablet 4 mg PO QHS PRN atorvastatin 80 mg tablet 80 mg PO QHS Qty: 90 3RF gabapentin 600 mg tablet 600 mg PO BID glimepiride 4 mg tablet 4 mg PO BID Otilia-Prema 0.8 mg tablet 1 tab PO DAILY Label Comments: TAKE 1 TABLET BY MOUTH ONCE DAILY ranolazine [Ranexa] 500 mg tablet extended release 12 hr 500 mg PO BID Qty: 180 3RF fish oil-dha-epa 1 EACH capsule 1 each PO DAILY Label Comments: SUPPLEMENT escitalopram oxalate 5 MG tablet 5 mg PO DAILY Label Comments: DEPRESSION allopurinol 100 MG tablet 100 mg PO DAILY Label Comments: ANTI-GOUT hydrocodone-acetaminophen 1 EACH tablet 1 tablet PO Q4H PRN PRN (Reason: Pain) aspirin 81 MG tablet 81 mg PO DAILY@0800 trimethoprim 100 mg tablet 100 mg PO QODAY PRN (Reason: antibiotic) Rx Instructions: cyclobenzaprine 10 MG tablet 10 mg PO DAILY PRN (Reason: Pain 1-10 Or Fever) meloxicam 7.5 MG tablet 7.5 mg PO DAILY (DME) catheter 14-6 Fr- Misc MISCELLANEOUS nitroglycerin 0.4 mg tablet, sublingual 0.4 mg SL Q5M PRN (Reason: chest pain) Qty: 25 3RF Rx Instructions: do not exceed 3 doses per episode esomeprazole magnesium [Nexium] 20 mg capsule,delayed release(DR/EC) 20 mg PO DAILY Qty: 30 11RF clopidogrel 75 mg tablet See Rx Instructions .ROUTE .COMPLEX Qty: 90 4RF Dose Instruction: TAKE 1 TABLET EVERY DAY FOR ANTI PLATELET Rx Instructions: TAKE 1 TABLET EVERY DAY FOR ANTI PLATELET carvedilol [Coreg] 25 mg tablet 25 mg PO BID Qty: 180 4RF Rx Instructions: must administer with a meal/food amlodipine 10 mg tablet 10 mg PO DAILY Qty: 90 3RF isosorbide mononitrate 30 mg tablet extended release 24 hr See Rx Instructions .ROUTE .COMPLEX Qty: 180 3RF Hold Instructions: low BP Dose Instruction: TAKE 1 TABLET TWICE A DAY Rx Instructions: TAKE 1 TABLET TWICE A DAY furosemide 20 mg tablet See Rx Instructions .ROUTE .COMPLEX Qty: 90 3RF Dose Instruction: TAKE 1 TABLET DAILY Rx Instructions: TAKE 1 TABLET DAILY Primary Care Provider: Brennan Ty Referrals: Brennan Ty MD [Primary Care Provider] - As soon as possible Disposition Disposition: Home, Self Care
[2022-09-23 02:03] VITALS: BP 152/103; PULSE 70; RESP 17; O2SAT 95
[2022-09-23] MEDS: Gabapentin 300 MG Capsule 600 MG PO (02:21)
== END 2022-09-23 02:24 | disposition home or self-care (01) ==
PROVIDERS: Emergency Provider Emergency Medicine; PCP Family Medicine; Visit Provider Emergency Medicine
DX: R00.2 Palpitations (principal); E11.22 Type 2 diabetes mellitus with diabetic chronic kidney disease; N18.30 Chronic kidney disease, stage 3 unspecified; E78.5 Hyperlipidemia, unspecified; T50.905A Adverse effect of unspecified drugs, medicaments and biological substances, initial encounter; I12.9 Hypertensive chronic kidney disease with stage 1 through stage 4 chronic kidney disease, or unspecified chronic kidney disease; I25.10 Atherosclerotic heart disease of native coronary artery without angina pectoris
CPT/HCPCS: 71045; 80048; 83735; 84484; 85025; 93005; 99285; A4216

== ENCOUNTER 2022-10-05 14:27 | Emergency (ER) | payer MEDICARE, SELFPAY ==
[2020-01-31 15:30] VITALS: BMI 28.6
[2022-10-05 14:27] VITALS: BP 136/107; PULSE 88; RESP 18; TEMP 36.9; O2SAT 99; BMI 27.3
--- NOTE | 2022-10-05 14:38 | RAD_ITS ---
STUDY: X-RAY - RIGHT KNEE REASON FOR EXAM: Male, 52 years old. Injury/Pain TECHNIQUE: 5 view(s) of the knee. COMPARISON: None. FINDINGS: Normal visualized distal femur. Normal visualized proximal tibia and fibula. Normal proximal tibiofibular articulation. Normal medial femorotibial compartment. Normal lateral femorotibial compartment. Normal patellofemoral articulation. There is no demonstrated joint effusion. The soft tissue structures are unremarkable. RAD/Knee 4 or More Views IMPRESSION: No fracture or malalignment. Electronically Signed: Krish Salas ([place]), at 15:38 EDT ,
--- NOTE | 2022-10-05 14:54 | ED.VIS.LOWEX ---
HPI History of Present Illness Chief Complaint: Lower Extremity Injury Detail of Chief Complaint: Right knee pain Informant: patient Occured/Mechanism Comment: No trauma Onset/Context/Timing Context: Sudden Onset Timing: Continuous Quality of Pain: Dull and Aching Location: Anterior right knee over the MCL joint/ligament Current Severity: Mild Maximum Severity: Severe Worsened by: Flexion Relieved by: Rest Associated Symptoms Associated Symptoms: Negative for Parasthesia, Weakness or Loss of Funtion Narrative Narrative: Patient's states he was walking out of work. For step out of the building was uneventful. Second step he developed severe pain and felt a crack and pop. Patient states he has pain to bear weight over bend or flex his knee. He has no history of knee problems or injury. He is in pain management for back pain. He denies history of pseudogout. He does have history of gout. He denies history of autoimmune disorder. He denies fever or chills. He denies night sweats or weight loss. Tetanus Immunization: Unknown Prior similar symptoms: No Recent Illness/Hospitalization: No PFSH PFSH Medical History Atherosclerosis of coronary artery of [place] heart without angina pectoris Chronic kidney disease, stage 3 (03/15/13) Chronic radicular lumbar pain Diabetes mellitus type II, controlled Erectile dysfunction Essential hypertension History of ST elevation myocardial infarction (STEMI) (09/29/16) Hyperlipidemia Neurogenic bladder Nicotine dependence NSVT (nonsustained ventricular tachycardia) Osteoarthritis Palpitations Sleep-disordered breathing Spinal stenosis of lumbar region Syncope Home Medications escitalopram oxalate 5 mg tablet 5 mg PO DAILY depression 04/21/15 [History Last Taken 07/25/19] fish oil-dha-epa 1,200 mg-144 mg-216 mg capsule 1 each PO DAILY supplement 04/21/15 [History Last Taken 07/25/19] allopurinol 100 mg tablet 100 mg PO DAILY edema; uric acid 07/25/15 [History Last Taken 07/25/19] aspirin 81 mg tablet,delayed release 81 mg PO DAILY@0800 health maintenance 05/01/18 [History Last Taken 07/25/19] hydrocodone-acetaminophen 5-325mg 5mg-325mg 1 tablet PO Q4H PRN PRN Pain 05/01/18 [History Last Taken 07/22/19] trimethoprim 100 mg tablet 100 mg PO QODAY PRN antibiotic 02/17/20 [History Last Taken Unknown] nitroglycerin 0.4 mg sublingual tablet 0.4 mg sublingual Q5M PRN chest pain #25 tabs 06/09/20 [Rx Last Taken Unknown] cyclobenzaprine 10 mg tablet 10 mg PO DAILY PRN Pain 1-10 Or Fever 08/12/20 [History Last Taken Unknown] meloxicam 7.5 mg tablet 7.5 mg PO DAILY 08/12/20 [History Last Taken Unknown] atorvastatin 80 mg tablet 80 mg PO QHS cholesterol #90 tabs 05/30/21 [Rx Last Taken Unknown] catheter 14 Fr-6 07/22/21 [History Last Taken Unknown] esomeprazole magnesium 20 mg capsule,delayed release (Nexium) 20 mg PO DAILY #30 caps 02/25/22 [Rx Last Taken Unknown] amlodipine 10 mg tablet 10 mg PO DAILY #90 tabs 05/16/22 [Rx Last Taken Unknown] carvedilol 25 mg tablet (Coreg) 25 mg PO BID #180 tabs 05/16/22 [Rx Last Taken Unknown] clopidogrel 75 mg tablet See Rx Instructions .Route .COMPLEX #90 tabs 05/16/22 [Rx Last Taken Unknown] gabapentin 600 mg tablet 600 mg PO BID 06/04/22 [History Last Taken Unknown] glimepiride 4 mg tablet 4 mg PO BID 06/04/22 [History Last Taken Unknown] ranolazine 500 mg tablet,extended release,12 hr (Ranexa) 500 mg PO BID #180 tabs 06/04/22 [Rx Last Taken Unknown] tizanidine 4 mg tablet 4 mg PO QHS PRN 06/04/22 [History Last Taken Unknown] vitamin B complex-vitamin C-folic acid 0.8 mg tablet (Otilia-Prema) 1 tab PO DAILY 06/04/22 [History Last Taken Unknown] furosemide 20 mg tablet See Rx Instructions .Route .COMPLEX #90 tabs 07/22/22 [Rx Last Taken Unknown] isosorbide mononitrate 30 mg tablet,extended release 24 hr See Rx Instructions .Route .COMPLEX #180 tabs 07/22/22 [Rx Last Taken Unknown] Allergy/AdvReac Type Severity Reaction Status Date / Time sulfamethoxazole Allergy Mild Rash Verified 10/05/22 14:29 [From Bactrim] trimethoprim [From Bactrim] Allergy Mild Rash Verified 10/05/22 14:29 bupropion [From Wellbutrin] AdvReac Elevated Verified 10/05/22 14:29 BP Family History Grandfather CAD (coronary artery disease) Surgical History History of coronary artery stent placement (10/25/19) History of left heart catheterization History of renal stent ileoconduit placement percutaneous nephrostomy urethral stricture surgery urinary tract diverson Social History Smoking Status: Unknown if ever smoked alcohol intake: never substance use type: does not use caffeine: Yes Type: coffee Number of servings: 2 and tea ROS ROS ED Constitutional Constitutional ED: Denies chills, fever(s), subjective, sweats or weight loss Eyes Eyes: Denies blurry vision, change in vision or diplopia ENT ENT ED: Denies ear pain, rhinorrhea or sore throat Cardiovascular Cardiovascular: Denies chest pain, palpitations or racing heartbeat Musculoskeletal Musculoskeletal: Denies arthralgias, back pain, myalgias or neck pain Integumentary Denies rash Neurologic Neurologic: Denies paresthesias or weakness Hematologic/Lymphatic Hematologic/Lymphatic: Denies easy bleeding or easy bruising EXAM Physical Exam Const Vital Signs: 10/05/22 14:27 Temperature 98.4 F Temperature Source Temporal Pulse Rate 88 Respiratory Rate 18 Blood Pressure 136/107 H Blood Pressure Mean 116 Pulse Ox 99 Oxygen Delivery Method Room Air Positive well nourished and well developed General Appearance ED: well developed and NAD HEENT Reports moist mucous membranes normocephalic and atraumatic Eyes PERRL Eyes Narrative: Extract muscles are intact. Sclera is anicteric. Neck full ROM Chest Wall inspection of chest normal and palpation of chest normal Resp normal respiratory effort, no retractions and clear to auscultation bilaterally Cardio regular rate, regular rhythm, S1 normal heart sound, S2 normal heart sound and no murmurs GI non-tender, non-distended and no masses GI Narrative: Multiple well-healed scars Back/Spine no CVA tenderness Extremity Negative for normal to inspection Extremity Narrative: There is swelling in the right knee. The patella is not ballotable. There is no obvious effusion. There is joint line tenderness and tenderness over the MCL region. Varus valgus stress testing causes him pain medially. Modified Marlon's test is negative. Ana's test was negative. Patient able to extend to 180 degrees. He is willing to flex to 60 degrees before he has pain. There is no mass or fullness in the popliteal fossa. DP and PT pulse are palpable. Neuro oriented x3 and CN's II-XII intact bilaterally Psych mental status grossly normal Skin no wounds Lesions: no lesions Rashes: no rashes MDM MDM MDM Narrative Medical decision making narrative: Patient with atraumatic pain and swelling. Doubt this to be gout or pseudogout. This may represent an MCL injury or medial meniscus injury. Will obtain x-ray to determine there are any bony abnormality. If he has not been seen by orthopedist will refer to orthopedist on-call otherwise we will have him follow-up with his orthopedic surgeon. Radiography Chest X-Ray - ED: Read by ED Physician (4 view x-ray reveals no evidence of fracture, subluxation or dislocation. There is slight asymmetry of the joint. There is no effusion. There is no obvious degenerative changes noted.) Treatment and Re-Evaluation Narrative: Patient was informed of his results. He was referred to orthopedist on-call. He is given crutches since he is having difficulty bearing weight. He was not given pain medicine since he is in pain management. He does have an upcoming appointment with Dr. Farrell on October 15. Discharge Plan Triage Chief Complaint: Lower Extremity Injury ED Provider: Sawyer Spangler Dx/Rx/DC Orders Clinical Impression: Acute pain of right knee, Chronic kidney disease, stage 3, Essential hypertension, Hyperlipidemia Instructions: ED Meniscal Injury Knee Poss, ED Knee Pain of Uncertain Cause Prescriptions: No Action tizanidine 4 mg tablet 4 mg PO QHS PRN atorvastatin 80 mg tablet 80 mg PO QHS Qty: 90 3RF gabapentin 600 mg tablet 600 mg PO BID glimepiride 4 mg tablet 4 mg PO BID Otilia-Prema 0.8 mg tablet 1 tab PO DAILY Label Comments: TAKE 1 TABLET BY MOUTH ONCE DAILY ranolazine [Ranexa] 500 mg tablet extended release 12 hr 500 mg PO BID Qty: 180 3RF fish oil-dha-epa 1 EACH capsule 1 each PO DAILY Label Comments: SUPPLEMENT escitalopram oxalate 5 MG tablet 5 mg PO DAILY Label Comments: DEPRESSION allopurinol 100 MG tablet 100 mg PO DAILY Label Comments: ANTI-GOUT hydrocodone-acetaminophen 1 EACH tablet 1 tablet PO Q4H PRN PRN (Reason: Pain) aspirin 81 MG tablet 81 mg PO DAILY@0800 trimethoprim 100 mg tablet 100 mg PO QODAY PRN (Reason: antibiotic) Rx Instructions: cyclobenzaprine 10 MG tablet 10 mg PO DAILY PRN (Reason: Pain 1-10 Or Fever) meloxicam 7.5 MG tablet 7.5 mg PO DAILY (DME) catheter 14-6 Fr- Misc MISCELLANEOUS nitroglycerin 0.4 mg tablet, sublingual 0.4 mg SL Q5M PRN (Reason: chest pain) Qty: 25 3RF Rx Instructions: do not exceed 3 doses per episode esomeprazole magnesium [Nexium] 20 mg capsule,delayed release(DR/EC) 20 mg PO DAILY Qty: 30 11RF clopidogrel 75 mg tablet See Rx Instructions .ROUTE .COMPLEX Qty: 90 4RF Dose Instruction: TAKE 1 TABLET EVERY DAY FOR ANTI PLATELET Rx Instructions: TAKE 1 TABLET EVERY DAY FOR ANTI PLATELET carvedilol [Coreg] 25 mg tablet 25 mg PO BID Qty: 180 4RF Rx Instructions: must administer with a meal/food amlodipine 10 mg tablet 10 mg PO DAILY Qty: 90 3RF isosorbide mononitrate 30 mg tablet extended release 24 hr See Rx Instructions .ROUTE .COMPLEX Qty: 180 3RF Hold Instructions: low BP Dose Instruction: TAKE 1 TABLET TWICE A DAY Rx Instructions: TAKE 1 TABLET TWICE A DAY furosemide 20 mg tablet See Rx Instructions .ROUTE .COMPLEX Qty: 90 3RF Dose Instruction: TAKE 1 TABLET DAILY Rx Instructions: TAKE 1 TABLET DAILY Primary Care Provider: Brennan Ty Referrals: Manolo Latham DO [Med Staff - Active Staff] - 5-7 Days Brennan Ty MD [Primary Care Provider] - Disposition Disposition: Home, Self Care
[2022-10-05 15:29] VITALS: BP 139/84; PULSE 72; RESP 16; O2SAT 97
== END 2022-10-05 15:29 | disposition home or self-care (01) ==
PROVIDERS: Emergency Provider Emergency Medicine; PCP Family Medicine; Visit Provider Emergency Medicine
DX: M25.561 Pain in right knee (principal); E11.22 Type 2 diabetes mellitus with diabetic chronic kidney disease; N18.30 Chronic kidney disease, stage 3 unspecified; I25.10 Atherosclerotic heart disease of native coronary artery without angina pectoris; I12.9 Hypertensive chronic kidney disease with stage 1 through stage 4 chronic kidney disease, or unspecified chronic kidney disease; E78.5 Hyperlipidemia, unspecified; Z79.82 Long term (current) use of aspirin; Z79.899 Other long term (current) drug therapy; M19.90 Unspecified osteoarthritis, unspecified site; Z79.02 Long term (current) use of antithrombotics/antiplatelets; Z95.5 Presence of coronary angioplasty implant and graft; X58.XXXA Exposure to other specified factors, initial encounter
CPT/HCPCS: 73564; 99283

== ENCOUNTER → 2022-10-25 | Outpatient (CLI) | payer MEDICARE, SELFPAY ==
[2020-01-31 15:30] VITALS: BMI 28.6
--- NOTE | 2022-10-25 12:27 | MRI_ITS ---
EXAM: MR RIGHT LOWER EXTREMITY WITHOUT INTRAVENOUS CONTRAST, KNEE CLINICAL INDICATION: Right knee pain TECHNIQUE: Multiplanar and multisequence MR images of the right knee without intravenous contrast. COMPARISON: No relevant prior studies available. FINDINGS: BONES/JOINTS: See below. EXTENSOR MECHANISM: Unremarkable. MEDIAL MENISCUS: Longitudinal horizontal oblique tear of the posterior horn of the medial meniscus with displaced flap of meniscal tissue located between the peripheral margin of the medial tibial plateau and the midportion of the medial collateral ligament. LATERAL MENISCUS: Unremarkable. MEDIAL CAPSULE/SUPPORTING STRUCTURES: See above. LATERAL CAPSULE/SUPPORTING STRUCTURES: Unremarkable. Lateral collateral ligamentous complex, inclusive of the popliteal tendon, are intact. ANTERIOR CRUCIATE LIGAMENT: Unremarkable. Intact. POSTERIOR CRUCIATE LIGAMENT: Unremarkable. Intact. MUSCLES: Unremarkable. CARTILAGE: Unremarkable. Intact. FLUID: Unremarkable. No joint effusion. OTHER SOFT TISSUES: See above. MRI/Lower Ext Joint Only (Routine) IMPRESSION: Longitudinal horizontal oblique tear of the posterior horn of the medial meniscus with caudally displaced flap of meniscal tissue located between the peripheral margin of the medial tibial plateau and the adjacent midportion of the medial collateral ligament. Electronically Signed: Rosendo Velasco MD at 21:20 EDT ,
== END | disposition home or self-care (01) ==
LOC: MRI 12:24
PROVIDERS: PCP Family Medicine; Referring Provider Orthopaedic Surgery; Visit Provider Orthopaedic Surgery
DX: M23.90 Unspecified internal derangement of unspecified knee (principal)
CPT/HCPCS: 73721

== ENCOUNTER → 2022-11-04 | Outpatient (CLI) | payer MEDICARE, SELFPAY ==
[2020-01-31 15:30] VITALS: BMI 28.6
== END | disposition home or self-care (01) ==
PROVIDERS: PCP Family Medicine; Visit Provider Family Medicine
DX: N39.0 Urinary tract infection, site not specified (principal)
CPT/HCPCS: 87077; 87086; 87088; 87186

== ENCOUNTER → 2022-11-20 | Outpatient (CLI) | payer MEDICARE, SELFPAY ==
[2020-01-31 15:30] VITALS: BMI 28.6
[2022-11-20 15:14] LABS: Absolute Lymphocyte Count 1.52 X10^3/uL (0.83-4.51); Absolute Neutrophil Count 4.1 X10^3/uL (2.0-7.7); Basophil# 0.05 X10^3/uL; Basophil% 0.8 % (0-1); Eosinophil# 0.19 X10^3/uL; Eosinophils% 2.9 % (0-5); Hematocrit 46.4 % (40-54); Hemoglobin 14.9 g/dL (13.0-16.5); Lymphocyte # 1.52 X10^3/ul (0.83-4.51); Lymphocyte % 23.3 % (19-41); Mean Corp Hgb Conc 32.1 g/dL (32-36); Mean Corpuscular Hgb 30.5 pg (27.0-32.0); Mean Corpuscular Volume 94.9 fL (80-94); Mean Platelet Vol. 9.6 fl (6.2-12.0); Monocyte# 0.61 X10^3/uL; Monocyte% 9.3 % (0-10); NRBC Flagged by Analyzer 0 % (0-5); Neutrophil # 4.13 X10^3/uL (2.7-7.7); Neutrophil % 63.2 % (47-70); Platelet Count 216 K/mm3 (150-450); RBC Distribution Width CV 12.7 % (11.6-14.6); RBC Distribution Width SD 44.5 fl (35.1-43.9); Red Blood Count 4.89 M/mm3 (4.6-6.2); White Blood Count 6.5 K/mm3 (4.4-11.0)
[2022-11-20 15:43] LABS: AST(SGOT) 24 U/L (15-37); Alanine Aminotransfer ALT/SGPT 48 U/L (16-61); Albumin, Serum 3.3 g/dL (3.2-5.0); Alkaline Phosphatase 110 U/L (45-117); Anion Gap 6 (5-15); BUN 17 mg/dL (7-18); Calcium,Total 8.6 mg/dL (8.5-10.1); Chloride 107 mmol/L (98-107); Cholesterol 126 mg/dL (200); Creatinine, Serum 1.88 mg/dL (0.70-1.30); EST Glomerular Filtration Rate 40 mL/min (>60); Est Glom Filt Rate - Afr Amer 48 mL/min (>60); Globulin 3.2 g/dL (2.2-4.2); Glucose 215 mg/dL (74-106); High Density Lipoprotein 26 mg/dL; Protein, Total 6.5 g/dL (6.4-8.2); Sodium Level 138 mmol/L (136-145); Thyroid Stim Hormone (TSH) 0.71 uIU/mL (0.358-3.74); Triglycerides 389 mg/dL; Very Low Density Lipoprotein 78 mg/dL (5-40)
[2022-11-20 17:28] LABS: Hemoglobin A1c 6.5 % (3.8-5.6)
== END | disposition home or self-care (01) ==
LOC: MFPLAB 12:11
PROVIDERS: PCP Family Medicine; Visit Provider Family Medicine
DX: Z01.818 Encounter for other preprocedural examination (principal); E11.9 Type 2 diabetes mellitus without complications
CPT/HCPCS: 36415; 80053; 80061; 83036; 84443; 85025

== ENCOUNTER → 2022-12-13 | Outpatient (CLI) | payer MEDICARE, SELFPAY ==
[2020-01-31 15:30] VITALS: BMI 28.6
[2022-12-13 17:54] LABS: Absolute Lymphocyte Count 2.03 X10^3/uL (0.83-4.51); Absolute Neutrophil Count 5.4 X10^3/uL (2.0-7.7); Basophil# 0.06 X10^3/uL; Basophil% 0.7 % (0-1); Eosinophil# 0.24 X10^3/uL; Eosinophils% 2.9 % (0-5); Lymphocyte # 2.03 X10^3/ul (0.83-4.51); Lymphocyte % 24.3 % (19-41); Mean Corp Hgb Conc 32.7 g/dL (32-36); Mean Corpuscular Hgb 30.6 pg (27.0-32.0); Mean Corpuscular Volume 93.7 fL (80-94); Mean Platelet Vol. 9.4 fl (6.2-12.0); Monocyte# 0.63 X10^3/uL; Monocyte% 7.5 % (0-10); NRBC Flagged by Analyzer 0 % (0-5); Neutrophil # 5.37 X10^3/uL (2.7-7.7); Neutrophil % 64.1 % (47-70); Platelet Count 244 K/mm3 (150-450); RBC Distribution Width CV 12.9 % (11.6-14.6); RBC Distribution Width SD 43.8 fl (35.1-43.9); Red Blood Count 5.23 M/mm3 (4.6-6.2); White Blood Count 8.4 K/mm3 (4.4-11.0)
[2022-12-13 18:14] LABS: ALB/GLOB Ratio 0.9 RATIO (0.9-2.4); AST(SGOT) 20 U/L (15-37); Alanine Aminotransfer ALT/SGPT 37 U/L (16-61); Albumin, Serum 3.5 g/dL (3.2-5.0); Alkaline Phosphatase 96 U/L (45-117); Anion Gap 2 (5-15); BUN 10 mg/dL (7-18); BUN/Creat Ratio 5.6 RATIO (10-20); Calcium,Total 9.3 mg/dL (8.5-10.1); Chloride 108 mmol/L (98-107); Creatinine, Serum 1.78 mg/dL (0.70-1.30); EST Glomerular Filtration Rate 42 mL/min (>60); Est Glom Filt Rate - Afr Amer 51 mL/min (>60); Globulin 3.8 g/dL (2.2-4.2); Glucose 136 mg/dL (74-106); Protein, Total 7.3 g/dL (6.4-8.2); Sodium Level 138 mmol/L (136-145)
== END | disposition home or self-care (01) ==
LOC: MFPLAB 14:15
PROVIDERS: PCP Family Medicine; Visit Provider Family Medicine
DX: Z01.818 Encounter for other preprocedural examination (principal)
CPT/HCPCS: 36415; 80053; 85025

== ENCOUNTER 2023-01-07 07:12 | Day surgery (SDC) | payer MEDICARE, SELFPAY ==
[2020-01-31 15:30] VITALS: BMI 28.6
[2023-01-07] VITALS (8 sets, daily range): BP systolic 121–146; BP diastolic 83–99; PULSE 68–83; RESP 16–18; TEMP 36.3–36.8; O2SAT 93–99; BMI 28.4
[2023-01-07] MEDS: Lactated Ringers 1,000 ML 15 ML IV (07:40)
--- NOTE | 2023-01-07 08:24 | HP.PCM_ITS ---
History and Physical Date of Admission: 01/07/23 [facility] [address] [place] [address] OFFICE VISIT Date of Service: 11/01/22 MR#: [id number] Acct: [id number] Name: MARY TAYLOR Rep #: [id number] : 1970 Provider: Dr. Manolo Latham, DO Age/Sex: 52/M Location: [facility] [place] Status: Signed Intake Vital Signs 10/10/2307:11 Height 6 ft 1 in Weight: 189 lb BMI 24.9 Intake Visit Reasons: RIGHT KNEE Chief Complaint: Right knee Is patient in pain?: Yes Allergies sulfamethoxazole [From Bactrim] Allergy (Mild, Verified 11/01/22 10:54) Rashtrimethoprim [From Bactrim] Allergy (Mild, Verified 11/01/22 10:54) Rashbupropion [From Wellbutrin] Adverse Reaction (Verified 11/01/22 10:54) Elevated BP Medications escitalopram oxalate 5 mg tablet 5 mg PO DAILY depression 04/21/15 [History Confirmed 11/01/22] fish oil-dha-epa 1,200 mg-144 mg-216 mg capsule 1 each PO DAILY supplement 04/21/15 [History Confirmed 11/01/22] allopurinol 100 mg tablet 100 mg PO DAILY edema; uric acid 07/25/15 [History Confirmed 11/01/22] aspirin 81 mg tablet,delayed release 81 mg PO DAILY@0800 health maintenance 05/01/18 [History Confirmed 11/01/22] hydrocodone-acetaminophen 5-325mg 5mg-325mg 1 tablet PO Q4H PRN PRN Pain 05/01/18 [History Confirmed 11/01/22] trimethoprim 100 mg tablet 100 mg PO QODAY PRN antibiotic 02/17/20 [History Confirmed 11/01/22] nitroglycerin 0.4 mg sublingual tablet 0.4 mg sublingual Q5M PRN chest pain #25 tabs 06/09/20 [Rx Confirmed 11/01/22] cyclobenzaprine 10 mg tablet 10 mg PO DAILY PRN Pain 1-10 Or Fever 08/12/20 [History Confirmed 11/01/22] meloxicam 7.5 mg tablet 7.5 mg PO DAILY 08/12/20 [History Confirmed 11/01/22] atorvastatin 80 mg tablet 80 mg PO QHS cholesterol #90 tabs 05/30/21 [Rx Confirmed 11/01/22] catheter 14 Fr-6 07/22/21 [History Confirmed 11/01/22] esomeprazole magnesium 20 mg capsule,delayed release (Nexium) 20 mg PO DAILY #30 caps 02/25/22 [Rx Confirmed 11/01/22] amlodipine 10 mg tablet 10 mg PO DAILY #90 tabs 05/16/22 [Rx Confirmed 11/01/22] carvedilol 25 mg tablet (Coreg) 25 mg PO BID #180 tabs 05/16/22 [Rx Confirmed 11/01/22] clopidogrel 75 mg tablet See Rx Instructions .Route .COMPLEX #90 tabs 05/16/22 [Rx Confirmed 11/01/22] gabapentin 600 mg tablet 600 mg PO BID 06/04/22 [History Confirmed 11/01/22] glimepiride 4 mg tablet 4 mg PO BID 06/04/22 [History Confirmed 11/01/22] ranolazine 500 mg tablet,extended release,12 hr (Ranexa) 500 mg PO BID #180 tabs 06/04/22 [Rx Confirmed 11/01/22] tizanidine 4 mg tablet 4 mg PO QHS PRN 06/04/22 [History Confirmed 11/01/22] vitamin B complex-vitamin C-folic acid 0.8 mg tablet (Otilia-Prema) 1 tab PO DAILY 06/04/22 [History Confirmed 11/01/22] furosemide 20 mg tablet See Rx Instructions .Route .COMPLEX #90 tabs 07/22/22 [Rx Confirmed 11/01/22] isosorbide mononitrate 30 mg tablet,extended release 24 hr See Rx Instructions .Route .COMPLEX #180 tabs 07/22/22 [Rx Confirmed 11/01/22] [facility] Medical History Atherosclerosis of coronary artery of [place] heart without angina pectoris Chronic kidney disease, stage 3 (03/15/13) Chronic radicular lumbar pain Diabetes mellitus type II, controlled Erectile dysfunction Essential hypertension History of ST elevation myocardial infarction (STEMI) (09/29/16) Hyperlipidemia Neurogenic bladder Nicotine dependence NSVT (nonsustained ventricular tachycardia) Osteoarthritis Palpitations Sleep-disordered breathing Spinal stenosis of lumbar region Syncope Surgical History History of coronary artery stent placement (10/25/19) History of left heart catheterization History of renal stent ileoconduit placement percutaneous nephrostomy urethral stricture surgery urinary tract diverson Family History Grandfather CAD (coronary artery disease) Social History Smoking Status: Unknown if ever smoked alcohol intake: never substance use type: does not use caffeine: Yes Type: coffee Number of servings: 2 and tea HPI RIGHT KNEE Details: Parts of this documentation were recorded by a scribe, this documentation accurately reflects the service provided and the decisions made by me, Dr. Manolo Latham, DO 11/01/22 0801. MARY TAYLOR is a 52 year old M here today for MRI review of the right knee. Denies any changes.He does use a coper fit knee sleeve. He has a lot of instability when he isnt wearing his knee brace. He states that his right knee is giving out on him. He is a smoker and has been smoking a pack a day since he was 10. Ortho Exam General General: Yes no acute distress Neurologic: Yes alert and Yes oriented x3 Psychologic: Yes reasonable and appropriate Right Knee Skin/Wound: Yes CDI, No erythema, No ecchymosis and No swelling Homans Sign: No 1+: Effusion Knee ROM: No ROM-Extension -20 to 0 (lacking 22) and No ROM-Flexion 0-140 (120) Examination: Yes Med jt line tenderness, Yes Pain with extention, Yes Marlon's Test, No TTP Pes Anserine and No Illiotibial band tenderness Stability: NML: Ana, NML: Posterior Drawer, NML: Valgus 0, NML: Valgus 30, NML: Varus 0 and NML: Varus 30 Apprehension with Lateral Translation: No Patella Grind: No KNEE: Antalgic gait no quadriceps or patellar tendon defect. Patient has no confidence with gait and possibility of knee giving out. Supplemental Info 10/25/2022 MRI right knee:Longitudinal horizontal oblique tear of the posterior horn of the medial meniscus with caudally displaced flap of meniscal tissue located between the peripheral margin of the medial tibial plateau and the adjacent midportion of the medial collateral ligament. 10/05/2022 x-ray right knee: No acute findings preserved joint space Coding Level of Care Code Off vis,est,level [address] elevation myocardial infarction (STEMI) I25.2 Stage 3 chronic kidney disease, unspecified whether stage 3a or 3b CKD N18.30 Chronic kidney disease stage 3 subtype: unspecified whether 3a or 3b Cigarette nicotine dependence without complication F17.210 Nicotine product type: cigarettes Substance use status: uncomplicated Acute medial meniscus tear of right knee, subsequent encounter S83.241D Encounter type: subsequent encounter Assessment and Plan Assessment and Plan (1) History of ST elevation myocardial infarction (STEMI): Status: Chronic (2) Chronic kidney disease, stage 3: Status: Chronic Qualifiers: Chronic kidney disease stage 3 subtype: unspecified whether 3a or 3b Qualified Code(s): N18.30 - Chronic kidney disease, stage 3 unspecified (3) Nicotine dependence: Status: Chronic Qualifiers: Nicotine product type: cigarettes Substance use status: uncomplicated Qualified Code(s): F17.210 - Nicotine dependence, cigarettes, uncomplicated (4) Acute medial meniscus tear of right knee: Status: Acute Qualifiers: Encounter type: subsequent encounter Qualified Code(s): S83.241D - Other tear of medial meniscus, current injury, right knee, subsequent encounter Plan Educated that he does have a medial meniscus tear of the right knee. Patient educated that it is recommended that he has a right knee arthroscopy for partial medial meniscectomy. Reviewed the pre-operative plans with the patient. Risks and benefits of the procedure were fully explained, including but not limited to infection, neurovascular injury, continued pain, arthritis, stiffness, need for further surgery, re-injury, DVT, PE, general risks of anesthesia, and loss of limb or life. The patient understands all the risks and does wish to proceed with written consent for right knee arthroscopic partial medial meniscectomy. Educated that he does have OA of the knee so there is a chance that he still has pain after surgery from the arthritis. Patient wishes to proceed with surgery. He will need medial clearance d/t CKD. He will need clearance to stop Plavix 5 days prior to surgery and stop aspirin 7 days prior to surgery. He will need UA C and S as well as EKG and updated labs. Minimize smoking prior to and after surgery to reduce the risk of infection. Follow up 2 weeks post op or sooner if pain, swelling, numbness or associated symptoms, or concerns develop. All questions answered. Patient in agreement of plan. 11/01/22 1211 <Electronically signed by Manolo Latham DO> Date Manolo Latham DO I have examined the patient and the H&P has been reviewed. There are no clinical changes since date of exam.
--- NOTE | 2023-01-07 08:38 | SUR.PREOP ---
Addendum entered by Atif Goodwin 01/07/23 08:43: THIS WAS DR. SOLORIO NOT KYRIE. WRITTEN IN ERROR. Original Note: DR. MITTAL REQUESTED BELLA CATHETER PLACEMENT D/T URINARY RETENTION/ SELF CATHING PER PATIENT REQUEST. BELLA CATHETER ATTEMPTED UNDER STERILE TECHNIQUE. THIS NURSE HAD ADVANCED ALMOST THE ENTIRE BELLA WITHOUT URINE RETURN. MULTIPLE ATTEMPTS. PATIENT THEN REQUESTED THAT HE DO IT SINCE HE CAN FEEL WHEN IT IS IN. I TOLD HIM THAT THIS WOULD NOT BE A STERILE TECHNIQUE AND HE SAID WELL I CATH MYSELF 7 TIMES A DAY AND NOT STERILE TECHNIQUE. PATIENT WAS ABLE TO ADVANCE CATHETER AFTER TWO ATTEMPTS. SOME RED CLOTS NOTED WHICH HE SAID IS NORMAL FOR HIM. BELLA IS NOW PATENT AND DRAINING.
[2023-01-07] MEDS: Cefazolin 2 GM in 0.9% Normal Saline 100 ML IV (08:46)
[2023-01-07] MEDS: Epinephrine (1 mg/ml) 1 MG/ML VIAL (09:11)
[2023-01-07] MEDS: Lidocaine 1% /Epi 1:100 (20ml) 20 ML Vial (09:11)
--- NOTE | 2023-01-07 09:38 | DCINST_ITS ---
Discharge Instructions Diet Discharge Diet: No restrictions Dressing / Incision Call your doctor if you observe: Shortness of breath and Chest pain Additional Dressing/Incision Instructions:: Ice and elevate next 72 hours .keep dressing on clean and dry for 48 hours then may remove begin showering daily but do not submerge in tub or pool. After shower may apply Band-Aids . Encourage knee range of motion weightbearing as tolerated, use crutches until confident in knee then may discontinue. No strenuous activity. When not ambulating keep iced and elevated next 72 hours. Do not mix pain medication with recreational drugs or alcohol only take as prescribed can be addictive and abusive, call with any questions or concerns. Follow Up Care Please Follow Up With: Manolo Latham DO When: 2 weeks Test Results: Test results from this visit will be discussed in further detail at your follow- up appointment, if applicable. Discharge Plan Admission Primary Reason for Your Visit: Right knee arthroscopy Attending Provider: Manolo Latham Primary Care Provider: Brennan Ty Discharge Orders/Prescriptions Prescriptions: New hydrocodone-acetaminophen 5-325 mg tablet 1 - 2 tab PO Q4H PRN (Reason: pain) 5 Days Qty: 20 0RF No Action tizanidine 4 mg tablet 4 mg PO QHS PRN (Reason: muscle spasticity) atorvastatin 80 mg tablet 80 mg PO QHS Qty: 90 3RF gabapentin 600 mg tablet 600 mg PO BID glimepiride 4 mg tablet 4 mg PO BID Otilia-Prema 0.8 mg tablet 1 tab PO DAILY Patient Comments: TAKE 1 TABLET BY MOUTH ONCE DAILY ranolazine [Ranexa] 500 mg tablet extended release 12 hr 500 mg PO BID Qty: 180 3RF fish oil-dha-epa 1 EACH capsule 1 each PO DAILY Patient Comments: SUPPLEMENT escitalopram oxalate 5 MG tablet 5 mg PO DAILY Patient Comments: DEPRESSION allopurinol 100 MG tablet 100 mg PO DAILY Patient Comments: ANTI-GOUT hydrocodone-acetaminophen 1 EACH tablet 1 tablet PO Q4H PRN PRN (Reason: Pain) aspirin 81 MG tablet 81 mg PO DAILY@0800 trimethoprim 100 mg tablet 100 mg PO QODAY PRN (Reason: antibiotic) Rx Instructions: cyclobenzaprine 10 MG tablet 10 mg PO DAILY PRN (Reason: Pain 1-10 Or Fever) meloxicam 7.5 MG tablet 7.5 mg PO PRN (DME) catheter 14-6 Fr- Misc MISCELLANEOUS cholecalciferol (vitamin D3) [Vitamin D3] 25 mcg (1,000 unit) tablet 25 mcg PO DAILY clopidogrel 75 mg tablet 75 mg PO DAILY Rx Instructions: TAKE 1 TABLET EVERY DAY FOR ANTI PLATELET nitroglycerin 0.4 mg tablet, sublingual 0.4 mg SL Q5M PRN (Reason: chest pain) Qty: 25 3RF Rx Instructions: do not exceed 3 doses per episode esomeprazole magnesium [Nexium] 20 mg capsule,delayed release(DR/EC) 20 mg PO DAILY Qty: 30 11RF carvedilol [Coreg] 25 mg tablet 25 mg PO BID Qty: 180 4RF Rx Instructions: must administer with a meal/food furosemide 20 mg tablet See Rx Instructions .ROUTE .COMPLEX Qty: 90 3RF Dose Instruction: TAKE 1 TABLET DAILY Rx Instructions: TAKE 1 TABLET DAILY isosorbide mononitrate 30 mg tablet extended release 24 hr See Rx Instructions .ROUTE .COMPLEX Qty: 7 0RF Hold Instructions: low BP Dose Instruction: TAKE 1 TABLET TWICE A DAY Rx Instructions: TAKE 1 TABLET TWICE A DAY Referrals / Follow Up: Brennan Ty MD [Primary Care Provider] - Disposition Disposition (needs filled in before D/C Order can be placed): Home, Self Care
[2023-01-07] MEDS: Bupivacaine Mpf 0.5% 30 ML VIAL (09:41)
[2023-01-07] MEDS: MethylPREDNISolone Acetate 40 MG/ML Vial IM (09:41)
--- NOTE | 2023-01-07 10:06 | OP.PCM_ITS ---
Operative Report Date of Procedure: 01/07/23 Preop diagnosis: Right knee medial meniscus Postoperative diagnosis: Radial tear body medial meniscus right knee Procedure: Right knee arthroscopy partial medial meniscectomy Anesthesia: General Estimated blood loss: 5 mL Tourniquet time: 30 minutes 300 mmHg Complications: none Indication for procedure: 52-year-old male with ongoing mechanical knee pain failed conservativetx. the patient did wish to proceed with an elective arthroscopic surgery to attempt to alleviate the symptoms. Risk benefits and alternatives of the procedure were reviewed including risk of bleeding infection nerve artery tissue damage need for further surgery continued pain and expected postoperative course. Procedure: The patient was met in the preoperative holding area. The operative extremity was identified by both patient and physician and family and marked. Patient was brought back to the operating room on a wheeled cart and transferred to the operating table in the supine position. Anesthesia was started. A well- padded tourniquet was placed on the operative extremity. A lower extremity leg grajeda was secured to the operative extremity. The contralateral extremity was well-padded and the end of the bed was flexed to 90 degrees. The patient was prepped and draped in the usual sterile fashion. A timeout was called to ensure the proper patient, procedure, and extremity were being contemplated. 0.5% Marcaine with epinephrine was injected into the planned incisional areas under the skin only. An Esmarch was used to exsanguinate the extremity and the tourniquet was inflated. An 11 blade scalpel was used to make a stab incision in the anterior lateral portal. The arthroscope was inserted into the intercondylar notch and inflow and outflow tubes were attached. Arthroscopic visualization began. The medial compartment was entered. An 18-gauge spinal needle was used to establish the placement for anterior medial portal. An 11 blade scalpel was used to make a stab incision. Blunt probe was inserted followed by a meniscal probe. There was a radial tear of the body of the medial meniscus which was flipped into the gutter, with the use of a arthroscopic shaver partial medial meniscectomy was, formed the ACL was found to be intact. The lateral compartment was entered free of meniscal or cartilage pathology The arthroscope was switched to the medial portal to complete the procedure. The medial and lateral gutters were inspected and were free of loose bodies. Th e patellofemoral joint was inspected and was free of cartilage pathology. There was good patellar tracking. The knee was thoroughly irrigated and drained. An intra-articular injection with 5 cc 0.5% Marcaine plain and 40 mg of Depo-Medrol was injected intra-articularly. The arthroscope was removed the portals were closed with 3-0 nylon arthroscopic stitches. Followed by Xeroform 4 x 4's ABDs web roll and an Gregorio wrap. The tourniquet was let down and the drapes were removed. All counts were correct. The patient was brought back to the PACU in stable condition.
[2023-01-07 10:27] LABS: Bedside Glucose 132 mg/dL (74-106)
--- NOTE | 2023-01-07 11:21 | SUR.PHASEII ---
PATIENT WAITING FOR RIDE POST OP. COULD BE DISCHARGED AT THIS TIME, MEETS CRITERIA.
[2023-01-07 11:24] LABS: Bedside Glucose 143 mg/dL (74-106)
== END 2023-01-07 15:12 | disposition home or self-care (01) ==
LOC: SDC 07:12 → AC 07:13
PROVIDERS: PCP Family Medicine; Referring Provider Orthopaedic Surgery; Visit Provider Orthopaedic Surgery
PROC: (CPT 29870; principal; 2023-01-07 08:40)
DX: S83.241D Other tear of medial meniscus, current injury, right knee, subsequent encounter (principal); E11.22 Type 2 diabetes mellitus with diabetic chronic kidney disease; N18.30 Chronic kidney disease, stage 3 unspecified; I12.9 Hypertensive chronic kidney disease with stage 1 through stage 4 chronic kidney disease, or unspecified chronic kidney disease; F17.210 Nicotine dependence, cigarettes, uncomplicated; Z79.84 Long term (current) use of oral hypoglycemic drugs; E78.5 Hyperlipidemia, unspecified; I25.10 Atherosclerotic heart disease of native coronary artery without angina pectoris; I25.2 Old myocardial infarction
CPT/HCPCS: 29881; 01400; 82962; J7120; J2405

== ENCOUNTER → 2023-02-24 | Outpatient (CLI) | payer MEDICARE, SELFPAY ==
[2020-01-31 15:30] VITALS: BMI 28.6
[2023-02-24 12:36] LABS: Hemoglobin A1c 6.3 % (3.8-5.6)
[2023-02-24 12:58] LABS: Anion Gap 3 (5-15); BUN 19 mg/dL (7-18); Calcium,Total 8.9 mg/dL (8.5-10.1); Chloride 106 mmol/L (98-107); Cholesterol 173 mg/dL (200); EST Glomerular Filtration Rate 39 mL/min (>60); Est Glom Filt Rate - Afr Amer 48 mL/min (>60); Glucose 225 mg/dL (74-106); High Density Lipoprotein 26 mg/dL; Potassium 3.9 mmol/L (3.5-5.1); Sodium Level 137 mmol/L (136-145); Triglycerides 582 mg/dL
== END | disposition home or self-care (01) ==
LOC: MFPLAB 11:07
PROVIDERS: PCP Family Medicine; Visit Provider Family Medicine
DX: Z00.00 Encounter for general adult medical examination without abnormal findings (principal); E11.9 Type 2 diabetes mellitus without complications
CPT/HCPCS: 36415; 80048; 80061; 83036

== ENCOUNTER → 2023-05-14 | Outpatient (CLI) | payer MEDICARE, SELFPAY ==
[2020-01-31 15:30] VITALS: BMI 28.6
--- OUTSIDE RECORDS SUMMARY | 2023-05-14 11:32 | XMS RPT_ITS | CCD ---
Author Name Unknown Address [address] [place] [address] Organization [facility] Care Team Providers Care Archeologist Classical Name Role Phone Roof NIRU, Ruben Dutton Unavailable Khan, Dayan Unavailable Unavailable Khan, Dayan Unavailable Unavailable Khan, Dayan Unavailable Unavailable ALBERTO PIZARRO Unavailable Unavailable ALBERTO PIZARRO Unavailable Unavailable TANGELA GUNN Unavailable Unavailable HOA HAYWOOD Unavailable Unavailable JANELL SAMSON Referring Unavailable JANELL SAMSON Referring Unavailable JANELL SAMSON Attending Unavailable JANELL SAMSON Referring Unavailable ELSA BARRON Attending Unavailable PASCUAL MANN Referring Unavailable Khan, Dayan Unavailable Unavailable Khan, Dayan Unavailable Unavailable Bety FOSTER, Elaina Verde Unavailable Unavailable Allergies Allergy Classification Reported Allergen(s) Allergy Type Date of Onset Reaction(s) Facility (8 sources) sulfamethoxazole / trimethoprim drug allergy 6 [facility] Work Phone: (2 sources) sulfamethoxazole / trimethoprim; Translations: [SULFAMETHOXAZOLE-TR IMETHOPRIM] Drug Allergy 6 [facility] Other [facility] Medications Completed/Discontinued Medications Medication Drug Class(es) Dates Sig (Normalized) Sig (Original) HYDROCODONE-ACETAM INOPHEN (16 sources) Opioid Agonist Start: 10-03-2016 take 1 tablet by mouth four times daily as needed NORCO 5-325 MG TABS One tablet by mouth four times daily as needed HYDROCODONE-ACETAMI NOPHEN [id number] Tamiko Cabrera RN Problems Active Problems Problem Classification Problem Date Documented Date Episodic/Chronic Acute myocardial infarction (8 [address]) Acute [address] segment elevation myocardial infarction; Translations: [ST elevation (STEMI) myocardial infarction involving left circumflex coronary artery] Onset: 10-03-2016 10-03-2016 Chronic Cardiac dysrhythmias (8 sources) Nonsustained ventricular tachycardia ; Translations: [Ventricular tachycardia] Onset: 10-03-2016 10-03-2016 Chronic Chronic kidney disease (8 sources) Chronic kidney disease stage 3; Translations: [Chronic kidney disease, stage 3 (moderate)] Onset: 10-03-2016 10-03-2016 Chronic Coronary atherosclerosis and other heart disease (8 sources) Atherosclerotic heart disease of [place] coronary artery without angina pectoris; Translations: [Atherosclerotic heart disease of [place] coronary artery without angina pectoris] Onset: 10-03-2016 10-03-2016 Chronic Disorders of lipid metabolism (8 sources) Hyperlipidemia; Translations: [Hyperlipidemia, unspecified] Onset: 10-03-2016 10-03-2016 Chronic Essential hypertension (8 sources) Hypertensive disorder; Translations: [Essential (primary) hypertension] Onset: 10-03-2016 10-03-2016 Chronic Other diseases of bladder and urethra (1 source) Neuromuscular dysfunction of bladder, unspecified; Translations: [Neuromuscular dysfunction of bladder, unspecified] Onset: 07-14-2017 Chronic Screening or history of mental health and substance abuse (8 sources) Tobacco dependence in remission; Translations: [Nicotine dependence, chewing tobacco, in remission] Onset: 10-03-2016 10-03-2016 Chronic Septicemia (1 source) Sepsis, unspecified organism; Translations: [Sepsis, unspecified organism] Onset: 08-04-2017 Unclassified (5 sources) Placement of stent in coronary artery ; Translations: [Presence of coronary angioplasty implant and graft] Onset: 10-03-2016 10-03-2016 Unclassified (3 sources) Long-term drug therapy; Translations: [Other rn long term care (current) drug therapy] Onset: 10-03-2016 10-03-2016 Past or Other Problems Problem Classification Problem Date Documented Da te Episodic/Chronic Abdominal hernia (20 sources) Bilateral inguinal hernia, without obstruction or gangrene, not specified as recurrent; Translations: [Incisional hernia] Onset: 06-08-2015 Resolved: 10-03-2016 06-13-2015 Episodic Biliary tract disease (16 sources) Imaging of biliary tract abnormal; Translations: [Abnormal findings on diagnostic imaging of liver and biliary tract] Onset: 04-14-2015 Resolved: 10-03-2016 10-03-2016 Episodic Genitourinary symptoms and ill-defined conditions (1 source) Gross hematuria; Translations: [Gross hematuria] Onset: 08-18-2017 Episodic Other aftercare (5 sources) Other jail (current) drug therapy; Translations: [Other rn long term care (current) drug therapy] Onset: 10-03-2016 10-03-2016 Episodic Other diseases of kidney and ureters (1 source) Unspecified hydronephrosis; Translations: [Unspecified hydronephrosis] Onset: 07-12-2017 Episodic Other screening for suspected conditions (not mental disorders or infectious disease) (1 source) Abnormal results of kidney function studies; Translations: [Abnormal results of kidney function studies] Onset: 08-18-2017 Episodic Results Test Name Value Interpretation Reference Range Facil ity Vital Signs Date Time Vital Sign Value Performing Clinician Rebeka pope 11-01-2016 10:08-0400 BMI (Body Mass Index) 28.63 kg/m2 Ruben Armendariz NIRU [facility] Work Phone: 11-01-2016 10:08-0400 BP Diastolic 80 mm[Hg] Ruben Armendariz NIRU [facility] Work Phone: 11-01-2016 10:08-0400 BP Systolic 118 mm[Hg] Ruben Armendariz PRODUCT SAFETY TECHNICIAN [facility] Work Phone: 11-01-2016 10:08-0400 Pulse (Heart Rate) 72 /min Ruben Armendariz NP [facility] Work Phone: 11-01-2016 10:08-0400 Weight 98.43 kg Ruben Armendariz PRODUCT SAFETY TECHNICIAN [facility] Work Phone: 10-22-2016 10:27-0400 Heart rate 83 /min Dayan Khan [facility] Work Phone: 10-22-2016 10:12-0400 BMI (Body Mass Index) 28.23 kg/m2 [facility] Work Phone: 10-22-2016 10:12-0400 BP Diastolic 90 mm[Hg] Dayan Khan [facility] Work Phone: 10-22-2016 10:12-0400 BP Systolic 120 mm[Hg] Dayan Khan [facility] Work Phone: 10-22-2016 10:12-0400 Height 185.42 cm [facility] Work Phone: 10-22-2016 10:12-0400 Pulse (Heart Rate) 83 /min [facility] Work Phone: 10-22-2016 10:12-0400 Respiratory Rate 16 /min [facility]an [facility] Work Phone: 10-22-2016 10:12-0400 Weight 97.07 kg Dayan [facility] Work Phone: 06-28-2015 08:56-0500 BMI (Body Mass Index) 27.65 kg/m2 [facility] Work Phone: 06-28-2015 08:56-0500 Body Temperature 97.2 [degF] [facility]an [facility] Work Phone: 06-28-2015 08:56-0500 BP Diastolic 88 mm[Hg] Dayan [facility] Work Phone: 06-28-2015 08:56-0500 BP Systolic 126 mm[Hg] Dayan [facility] Work Phone: 06-28-2015 08:56-0500 BSA (Body Surface Area) 2.2 m2 Dayan [facility] Work Phone: 06-28-2015 08:56-0500 Pulse (Heart Rate) 87 /min Dayan [facility] Work Phone: 06-28-2015 08:56-0500 Pulse Oximetry 97 % Dayan [facility] Work Phone: 06-28-2015 08:56-0500 Respiratory Rate 16 /min Dayan [facility] Work Phone: 06-28-2015 08:56-0500 Weight 95.07 kg Dayan [facility] Work Phone: 05-10-2015 13:49-0500 Height 185.42 cm Dayan [facility] Work Phone: Encounters Encounter Date Encounter Type Care Provider Facility Start: 08-03-2018 End: 08-04-2018 Patient encounter procedure ELSA BARRON [facility] Start: 08-18-2017 End: 08-20-2017 Patient encounter procedure JANELL SAMSON [facility] Start: 08-04-2017 End: 08-04-2017 Ambulatory [facility]BERTO [facility] Start: 07-06-2017 End: 07-06-2017 Emergency department patient visit TANGELA GUNN Facility:B Procedures Date Procedure Procedure Detail Performing Clinician Start: 11-01-2016 End: 11-06-2016 STEFANIE Armendariz PRODUCT SAFETY TECHNICIAN Work Phone: Start: 11-01-2016 End: 11-06-2016 Follow Up Appt 6 months Ruben Armendariz PRODUCT SAFETY TECHNICIAN Work Phone: Start: 10-22-2016 End: 10-22-2016 STEFANIE Tomlinson PA-C Work Phone: Start: 10-22-2016 End: 10-22-2016 Follow Up Appt 3 months Loren barney PA-C Work Phone: Start: 10-04-2016 End: 11-06-2016 Referral to agile scrum master Pascual Suarez MD Work Phone: Start: 10-03-2016 End: 10-03-2016 Nurse, Teaching, Wound Check (no charge) Pascual Suarez MD Work Phone: Start: 10-03-2016 Placement of stent i n coronary artery Status post cardiac stent placement Dayan Khan Plan of Treatment Date Care Activity Detail Author Start: 05-12-2017 End: 05-12-2017 Appointment Appointment [facility] Work Phone: Start: 01-23-2017 End: 01-23-2017 Appointment Appointment [facility] Work Phone: Start: 11-06-2016 End: 11-06-2016 Appointment Appointment [facility] Work Phone: Start: 11-01-2016 End: 11-06-2016 STEFANIE [facility] Work Phone: Start: 11-01-2016 End: 11-06-2016 Follow Up Appt 6 months Follow Up Appt 6 months [facility] Work Phone: Start: 10-22-2016 End: 10-22-2016 Appointment Appointment [facility] Work Phone: Start: 10-22-2016 End: 10-22-2016 STEFANIE SANTON [facility] Work Phone: Start: 10-22-2016 End: 10-22-2016 Follow Up Appt 3 months Follow Up Appt 3 months [facility] Work Phone: Start: 10-04-2016 End: 10-04-2016 [facility] [address] [place], [address] [facility] Work Phone: Start: 10-03-2016 End: 10-03-2016 Appointment Appointment [facility] Phone: Start: 10-03-2016 End: 10-04-2016 *BMP *BMP [facility] Work Phone: Start: 10-03-2016 End: 10-04-2016 Stress Echocardiogram (treadmill) Stress Echocardiogram (treadmill) [employer] Phone: Payers Date Payer Category Payer Medicare [id number] Summary Purpose Family History No Family History Records FoundNo Family History Records FoundNo Family History Records Found Advance Directives No Advanced Directives Records FoundNo Advanced Directives Records FoundNo Advanced Directives Records Found Additional Source Comments (unrecognized sect ion and content) No Status Records FoundNo Status Records FoundNo Status Records Found INFORMATION SOURCE (unrecogn ized section and content) DATE CREATED AUTHOR AUTHOR'S ORGANIZ ATION 10/24/2017 [facility] ([place]) DATE CREATED AUTHOR AUTHOR'S ORGANIZ ATION 08/07/2018 [facility] FOR RECORDS PERTAINING TO PATIENTS WHO ARE OR HAVE BEEN ENROLLED IN A CHEMICAL DEPENDENCY/SUBSTANCEABUSE PROGRAM, SOME INFORMATION MAY BE OMITTED. This clinical summary was aggregated from multiple sources. Caution should be exercised in using it in the provision of clinical care. This summary normalizes information from multiple sources, and as a consequence, information in this document may materially change the coding, format and clinical context of patient data. In addition, data may be omitted in some cases. CLINICAL DECISIONS SHOULD BE BASED ON THE PRIMARY CLINICAL RECORDS. [facility] [employer] [facility]. provides no warranty or guarantee of the accuracy or completeness of information in this document.
[2023-05-14 13:06] LABS: ALB/GLOB Ratio 1.1 RATIO (0.9-2.4); AST(SGOT) 22 U/L (15-37); Alanine Aminotransfer ALT/SGPT 35 U/L (16-61); Albumin, Serum 3.4 g/dL (3.2-5.0); Alkaline Phosphatase 79 U/L (45-117); Anion Gap 4 (5-15); BUN 18 mg/dL (7-18); BUN/Creat Ratio 9.3 RATIO (10-20); Calcium,Total 8.4 mg/dL (8.5-10.1); Chloride 111 mmol/L (98-107); Cholesterol 145 mg/dL (200); Creatinine, Serum 1.93 mg/dL (0.70-1.30); EST Glomerular Filtration Rate 39 mL/min (>60); Est Glom Filt Rate - Afr Amer 47 mL/min (>60); Globulin 3.1 g/dL (2.2-4.2); Glucose 174 mg/dL (74-106); High Density Lipoprotein 29 mg/dL; Potassium 4.3 mmol/L (3.5-5.1); Protein, Total 6.5 g/dL (6.4-8.2); Sodium Level 139 mmol/L (136-145); Triglycerides 390 mg/dL; Very Low Density Lipoprotein 78 mg/dL (5-40)
[2023-05-14 13:39] LABS: Hemoglobin A1c 6.6 % (3.8-5.6)
== END | disposition home or self-care (01) ==
LOC: MFPLAB 11:06
PROVIDERS: PCP Family Medicine; Visit Provider Family Medicine
DX: E11.9 Type 2 diabetes mellitus without complications (principal); E78.5 Hyperlipidemia, unspecified; I10 Essential (primary) hypertension
CPT/HCPCS: 36415; 80053; 80061; 83036

== ENCOUNTER 2023-08-12 14:30 | Outpatient (RCR) | payer MEDICARE, SELFPAY ==
[2020-01-31 15:30] VITALS: BMI 28.6
--- NOTE | 2023-07-29 08:58 | HP.PTEVAL_ITS ---
Patient's Visit Information Visit Information Visit Information: MARY TAYLOR is a 53 year old M referred to Physical Therapy by Dr. Manolo Latham DO with a diagnosis of R knee pain. Date of Evaluation: 07/29/23 Physical Therapist: Mateusz Butterfield, PT, ATC Visit Plan Frequency: 1x/Week Duration: 1 Week Plan: Issue and instruct pt on HEP of core and LE strengthening ex's on next PT visit Subjective Subjective: Pt reports ;having a R medial meniscal repair in january of 2023. Pt notes he really want able to rehab his knee at that time and has had pain ever since. Pt notes he has multiple medical conditions including kidney failure and 3 IL's at this time. Pt reports he has become debilitated over this time span secondary to the medical conditions he has. Pt reports his soul perpose for coming here today is to ge a HEP for him to perform independently to increase his overall tolerance for activity. Pt notes he also has a [employer] membership that he plans on activating and working hout here in the future. Pt reports he is able to perform all of his normal daily activities, but is limited with his endurance level at this time. Pt currently notes minimal pain in his R knee at 2/10. No tingling or numbness in LE's at this time. Pain R knee: Pain Intensity (Out of 10): 2 Objective Objective: Neuro: B LE sensation is WNL to light touch. B patellar reflex= 1/3 MMT: B LE's are grossly 4/5 throughout ROM: B LE's are WFL when compared bilaterally Gait: Pt ambulates with a mild limp of the R LE Balance/Special Test Scores Lower Extremity Functional Score: 42 Goals Goal 1:: Pt will be I with a HEP of core and LE strengthening after one return PT visit. Goal Time Frame: 1 Week Rehabilitation Potential Physical Therapy Diagnosis: Pt has R knee pain, weakness, and intolerance for prolonged ambulation secondary to debility Rehabilitation Potential: Good Anticipated Interventions Patient/Client Instruction: Educate patient on: Condition and Plan of Care For the Purpose of:: To improve self management Therapeutic Exercise to Include: Strength training, Balance training and Dynamic Lumbar Stabilization For the Purpose of:: To decrease pain, To improve muscle performance and motor function and To increase tolerance to activity/condition/position Text: Thank you for the opportunity to evaluate your patient. For Medicare and Medicare HMO plans, please review the plan of care and approve it. It will need to be FAXED BACK to us at [phone] for Medicare purposes. For Medicare only, by signing this I certify the plan of care. Please let me know if there are questions or concerns regarding this plan of car e. Physician Signature: Date:
--- NOTE | 2023-12-09 08:32 | HP.PT.NRP ---
Patient Information Patient Information: MARY TAYLOR was seen in my office for initial evaluation on 07/29/23. The following Plan of Care was established for this patient: POC Established Initial Frequency: 1x/Week Initial Duration: 1 Week Anticipated Interventions Patient/Client Instruction: Educate patient on: Condition and Plan of Care For the Purpose of:: To improve self management Therapeutic Exercise to Include: Strength training, Balance training and Dynamic Lumbar Stabilization For the Purpose of:: To decrease pain, To improve muscle performance and motor function and To increase tolerance to activity/condition/position Last Seen Last Seen: This patient was last seen in our office . Pertinent comments regarding their Physical therapy will appear below: Pt was treated for 2 PT visits for R knee pain through the date of 08/12/23. Pt has not returned through todays date and is discontinued at this time. At this point I will be discontinuing this patient from physical therapy. I would be happy to see this patient again in the future if found appropriate by the physician. Thank you! Mateusz Butterfield, PT, ATC Balance/Gait/Functional tests Balance/Special Test Scores Lower Extremity Functional Score: 42
== END 2023-08-12 19:00 | disposition home or self-care (01) ==
LOC: PT 14:30
PROVIDERS: PCP Family Medicine; Referring Provider Orthopaedic Surgery; Visit Provider Orthopaedic Surgery
DX: S83.241D Other tear of medial meniscus, current injury, right knee, subsequent encounter (principal); M25.561 Pain in right knee
CPT/HCPCS: 97110; 97161

== ENCOUNTER → 2023-08-21 | Outpatient (CLI) | payer MEDICARE, SELFPAY ==
[2020-01-31 15:30] VITALS: BMI 28.6
[2023-08-21 18:36] LABS: Anion Gap 4 (5-15); BUN 13 mg/dL (7-18); BUN/Creat Ratio 7.2 RATIO (10-20); Calcium,Total 9.1 mg/dL (8.5-10.1); Chloride 106 mmol/L (98-107); Cholesterol 169 mg/dL (200); Creatinine, Serum 1.81 mg/dL (0.70-1.30); EST Glomerular Filtration Rate 42 mL/min (>60); Est Glom Filt Rate - Afr Amer 50 mL/min (>60); Glucose 157 mg/dL (74-106); Hemoglobin A1c 7.6 % (3.8-5.6); High Density Lipoprotein 29 mg/dL; Potassium 3.8 mmol/L (3.5-5.1); Sodium Level 137 mmol/L (136-145); Triglycerides 368 mg/dL; Very Low Density Lipoprotein 74 mg/dL (5-40)
== END | disposition home or self-care (01) ==
LOC: MFPLAB 15:59
PROVIDERS: PCP Family Medicine; Visit Provider Family Medicine
DX: E11.9 Type 2 diabetes mellitus without complications (principal); I10 Essential (primary) hypertension
CPT/HCPCS: 36415; 80048; 80061; 83036

== ENCOUNTER 2023-12-06 07:42 | Inpatient (IN) | payer MEDICARE, SELFPAY ==
[2020-01-31 15:30] VITALS: BMI 28.6
[2023-12-06] VITALS (24 sets, daily range): BP systolic 117–158; BP diastolic 85–116; PULSE 56–89; RESP 13–19; TEMP 35.3–36.7; O2SAT 90–100; BMI 29.3; BMI 29.4
--- NOTE | 2023-12-06 07:55 | RAD_ITS ---
EXAM: XR CHEST, 1 VIEW CLINICAL INDICATION: chest pain TECHNIQUE: Frontal view of the chest. COMPARISON: XR Chest dated 09/23/2022 FINDINGS: LUNGS AND PLEURAL SPACES: Normal. No consolidation or edema. No pneumothorax. No effusion. HEART: Normal heart size. MEDIASTINUM: No mediastinal or hilar mass. BONES/JOINTS: No acute abnormality. RAD/Chest 1 View (Portable) IMPRESSION: No acute cardiopulmonary abnormality. No interval change. Electronically Signed: Jerald Friedman MD at 8:15 EDT ,
--- NOTE | 2023-12-06 07:55 | EKG12_ITS ---
Test Reason : Blood Pressure : / mmHG Vent. Rate : 061 BPM Atrial Rate : 061 BPM P-R Int : 166 ms QRS Dur : 086 ms QT Int : 396 ms P-R-T Axes : 059 054 071 degrees QTc Int : 398 ms Normal sinus rhythm Normal ECG Confirmed by Lamont Martel ([id number]), book or script editor BRETT BOWERS ([id number]) on 12/08/2023 2:12:44 PM Referred By: Kolton Lange Confirmed By:Lamont Martel
--- NOTE | 2023-12-06 08:00 | EDS_ITS ---
HPI History of Present Illness Chief Complaint: Chest Pain Narrative Narrative: 53-year-old male past medical history of hypertension, hyperlipidemia, chronic kidney disease, states he had 2 MIs the last being around 2020 and has 2 stents in his heart/coronary arteries. He awoke suddenly this morning with chest pain and shoulder pain radiating from his neck towards his shoulder. Additionally, he states he has pain in his lower jaw and that his teeth hurt. He had been told previously that that is concerning for a heart attack. He felt this way similarly, but more intensely when he had his MIs in the past. He is a smoker but down to just under a pack a day. He denies any leg swelling. No nausea or vomiting. No shortness of breath. [facility] Medical History Heart attack Wears glasses History of steroid therapy Thyroid disease Diabetes History of renal disease Arthritis High cholesterol Easy bruising Excessive bleeding Back pain TIA (transient ischemic attack) Syncope Gastric reflux Smoker Shortness of breath on exertion Chronic cough History of pain when walking History of stress test History of echocardiogram Cardiology follow-up encounter History of heart attack Erectile dysfunction Syncope Nicotine dependence Palpitations History of ST elevation myocardial infarction (STEMI) (09/29/16) Sleep-disordered breathing Diabetes mellitus type II, controlled Essential hypertension Neurogenic bladder Chronic kidney disease, stage 3 (03/15/13) Atherosclerosis of coronary artery of [place] heart without angina pectoris NSVT (nonsustained ventricular tachycardia) Chronic radicular lumbar pain Spinal stenosis of lumbar region Osteoarthritis Hyperlipidemia Home Medications ?Medication ?Instructions ?Recorded ?Last Taken ?Type escitalopram oxalate 5 mg tablet 5 mg PO DAILY depression 04/21/15 07/25/19 History fish oil-dha-epa 1,200 mg-144 1 each PO DAILY supplement 04/21/15 12/31/22 History mg-216 mg capsule allopurinol 100 mg tablet 100 mg PO DAILY edema; uric acid 07/25/15 07/25/19 History aspirin 81 mg tablet,delayed 81 mg PO DAILY@0800 health 05/01/18 12/31/22 Hi story release maintenance trimethoprim 100 mg tablet 100 mg PO QODAY PRN antibiotic 02/17/20 Unknown History nitroglycerin 0.4 mg sublingual 0.4 mg sublingual Q5M PRN chest 06/09/20 Unknown Rx tablet pain #25 tabs cyclobenzaprine 10 mg tablet 10 mg PO DAILY PRN Pain 1-10 Or 08/12/20 Unknown History Fever meloxicam 7.5 mg tablet 7.5 mg PO PRN PAIN 08/12/20 Unknown History catheter 14 Fr-6 07/22/21 Unknown History esomeprazole magnesium 20 mg 20 mg PO DAILY #30 caps 02/25/22 Unknown Rx capsule,delayed release (Nexium) gabapentin 600 mg tablet 600 mg PO BID 06/04/22 Unknown History glimepiride 4 mg tablet 4 mg PO BID 06/04/22 Unknown History tizanidine 4 mg tablet 4 mg PO QHS PRN muscle spasticity 06/04/22 Unknown History vitamin B complex-vitamin C-folic 1 tab PO DAILY 06/04/22 Unknown History acid 0.8 mg tablet (Otilia-Prema) cholecalciferol (vitamin D3) 25 25 mcg PO DAILY 12/31/22 Unknown History mcg (1,000 unit) tablet (Vitamin D3) hydrocodone-acetaminophen 5-325mg tab PO 05/22/23 Unknown History 5mg-325mg glucosamine sulfate 500 mg tablet 500 mg PO DAILY 07/09/23 Unknown History (Glucosamine) isosorbide mononitrate 60 mg 60 mg PO DAILY #90 tabs 08/21/23 Unknown Rx tablet,extended release 24 hr atorvastatin 80 mg tablet 80 mg PO QHS cholesterol #90 tabs 09/04/23 Unknown Rx carvedilol 25 mg tablet (Coreg) 25 mg PO BID #180 tabs 09/04/23 Unknown Rx clopidogrel 75 mg tablet 75 mg PO DAILY #90 tabs 09/04/23 Unknown Rx furosemide 20 mg tablet See Rx Instructions .Route 09/04/23 Unknown Rx .COMPLEX #90 tabs Allergy/AdvReac Type Severity Reaction Status Date / Time sulfamethoxazole (From Allergy Mild Rash Verified 07/09/23 13:56 Bactrim) trimethoprim (From Bactrim) Allergy Mild Rash Verified 07/09/23 13:56 bupropion (From Wellbutrin) AdvReac Elevated Verified 07/09/23 13:56 BP Family History Grandfather CAD (coronary artery disease) Surgical History History of lateral meniscus repair of right knee History of cardiac catheterization History of coronary artery stent placement (10/25/19) History of left heart catheterization ileoconduit placement History of renal stent urethral stricture surgery urinary tract diverson percutaneous nephrostomy Social History Smoking Status: Current every day smoker tobacco type: cigarettes alcohol intake: never substance use type: does not use caffeine: Yes Type: coffee Number of servings: 2 and tea ROS ROS ED ROS Narrative Constitutional: No fever, no chills. HEENT: No sore throat. No neck pain. No loss of vision. No rhinorrhea. Lower jaw pain/teeth pain. Cardiovascular: Positive chest pain. No palpitations. No pedal edema. Respiratory: No cough, no shortness of breath. Abdominal: No abdominal pain. No nausea. No vomiting. Genitourinary: No dysuria. No hematuria. Musculoskeletal: No myalgias. Positive shoulder pain Neurologic: No headaches. No dizziness. Occasional lightheadedness. Skin: No rash. No change in color. Psychiatric: No depression. No anxiety. EXAM Physical Exam Narrative Exam Narrative: Afebrile. Vital signs noted. HEENT: Normocephalic. Atraumatic. PERRL, EOMI. Neck soft and supple. No point tenderness or step off. Cardiovascular: Regular rate and rhythm. No murmurs, rubs, or gallops appreciated. Respiratory: No tachypnea. Lungs clear to auscultation bilaterally. Gastrointestinal: Abdomen soft, nontender, with normoactive bowel sounds. No rebound or guarding. Neurological: Awake. Alert. Nonfocal, nonlateralizing. Skin: No rash. Normal color. No pallor. Musculoskeletal: No pedal edema. Full range of motion extremities. Const Vital Signs: 12/06/23 07:42 12/06/23 07:42 12/06/23 07:47 Temperature 95.5 F L 95.5 F L Temperature Source Temporal Temporal Pulse Rate 67 67 Respiratory Rate 16 16 Respiratory Effort Normal Blood Pressure 144/100 H 144/100 H Blood Pressure Mean 114 114 Pulse Ox 97 97 Oxygen Delivery Method Nasal Cannula Nasal Cannula Oxygen Flow Rate (L/min) 2 2 12/06/23 07:55 12/06/23 08:24 12/06/23 08:40 Temperature Temperature Source Pulse Rate 66 67 Respiratory Rate 14 Respiratory Effort Blood Pressure 143/100 H 125/94 H Blood Pressure Mean 104 Pulse Ox 98 Oxygen Delivery Method Nasal Cannula Nasal Cannula Oxygen Flow Rate (L/min) 2 2 12/06/23 09:00 12/06/23 09:40 Temperature Temperature Source Pulse Rate 60 Respiratory Rate 18 13 Respiratory Effort Blood Pressure 142/93 H 145/99 H Blood Pressure Mean 109 Pulse Ox 97 Oxygen Delivery Method Nasal Cannula Oxygen Flow Rate (L/min) 2 MDM MDM MDM Narrative Medical decision making narrative: In the differential diagnosis is ACS/STEMI versus non-STEMI versus stable angina. Also in the differential would be pulmonary embolism versus aortic dissection. I have low suspicion for dissection because of blood pressure is appropriate, and there is no pain in the back or tearing sensation. Comprehensive workup was pursued. EKG was obtained and interpreted by myself as normal sinus rhythm at 61 bpm without ectopy or acute ST changes. No STEMI. Patient is already taken 324 mg of aspirin prior to arrival. Chest x-ray in 1 view interpreted by myself independently shows no evidence of pneumothorax or pneumonia. I reviewed the radiology report which confirms my independent interpretation. I reviewed his laboratory work and he has normal white count of 8.2 with hemoglobin normal at 15.3, hematocrit 46.5, platelet count 229. BMP shows chloride elevated at 111 which I think is nonspecific, normal sodium of 139, potassium 3.6, creatinine is elevated at 1.85, but when compared to prior labs, this appears to be his baseline with his history of chronic kidney disease. BUN normal at 16. Glucose is elevated at 163 but anion gap low at 1. Initial high-sensitivity troponin is 7. Patient was given 1 nitroglycerin which relieved his pain. D-dimer was obtained and is elevated at 0.69. He was sent for CTA of the chest to rule out pulmonary embolism. Patient does state that he takes aspirin and clopidogrel already. I did review his medication list, and he has nitroglycerin 25 tablets written for him, but did not take any today. I will check a second troponin and CTA. I reviewed the radiology report of the CTA of the chest and there is no evidence of pulmonary embolism or dissection. Approximately 9:20 AM, was noticed that he had a rhythm change on the monitor with bradycardia. There was possible ST elevation. However, when EKG was obtained, his pain had subsided. His second EKG was interpreted by myself independently as sinus bradycardia at [address] changes. No STEMI. No significant change when compared to previous obtained at 7:45 AM. I will discuss the patient with Dr. Lange who is on for cardiology, and STEMI as well. As his pain was at rest, my concern is for unstable angina. Given his chronic kidney disease he will most likely be started on heparin and admitted. After discussion with Dr. Lange, who agreed with heparin and admission. However, patient began having chest pain again. EKG was obtained for the third time and interpreted by myself. He does have [address] elevation inferiorly, with reciprocal changes in 1 and aVL. I activated code STEMI and he was given heparin bolus, and Brilinta and has already taken aspirin today. I rediscussed the patient with Dr. Lange who will take the patient to the catheterization lab. Disposition is to catheterization lab/admit. Critical care time 31 minutes. History & Record Review Discussion w/independent historian: Patient Lab Data Attestation: I reviewed the patient's lab results. Labs: Laboratory Results - last 24 hr 12/06/23 07:50 WBC 8.2 RBC 5.11 Hgb 15.3 Hct 46.5 MCV 91.0 MCH 29.9 MCHC 32.9 RDW Std Deviation 42.7 RDW Coeff of [place] 12.8 Plt Count 229 MPV 9.1 Immature Gran % (Auto) 0.700 Neut % (Auto) 54.0 Lymph % (Auto) 32.0 [place] % (Auto) 9.0 Eos % (Auto) 3.6 Baso % (Auto) 0.7 Absolute Neuts (auto) 4.4 Absolute Lymphs (auto) 2.64 Nucleated RBC % 0 PT 11.8 INR 0.9 APTT 26.4 D-Dimer Quant (PE/DVT) 0.69 H* Sodium 139 Potassium 3.6 Chloride 111 H Carbon Dioxide 27.0 Anion Gap 1 L BUN 16 Creatinine 1.85 H Estim Creat Clear Calc 56.32 Est GFR (MDRD) Af Amer 49 L Est GFR (MDRD) Non-Af 41 L BUN/Creatinine Ratio 8.6 L Glucose 163 H Calcium 9.1 Troponin I High Sens 7 Radiography Diagnostic Testing: Clinical Impression(s) from Imaging Studies Chest X-Ray 12/06/23 07:55 IMPRESSION: No acute cardiopulmonary abnormality. No interval change. Electronically Signed: Jerald Friedman MD at 8:15 EDT , Chest CTA 12/06/23 08:39 IMPRESSION: No acute cardiopulmonary abnormality. No evidence of acute pulmonary embolism. Electronically Signed: Jerald Friedman MD at 9:13 EDT , Management Discussion w/another healthcare provider: Cement Cutter (Dr. Lange) Critical Care Time Critical care time (excluding procedures): 30-74 minutes (31), Including time spent:, Discussing w/Patient &/or Family/Deputy Chief Counsel, Discussing w/Consultants, Arranging Admission or Transfer and Performing Direct Patient Care at Bedside Discharge Plan Triage Chief Complaint: Chest Pain ED Provider: Jb Smith Dx/Rx/DC Orders Primary Care Provider: Brennan Ty
[2023-12-06 08:17] LABS: Anion Gap 1 (5-15); BUN 16 mg/dL (7-18); BUN/Creat Ratio 8.6 RATIO (10-20); Calcium,Total 9.1 mg/dL (8.5-10.1); Chloride 111 mmol/L (98-107); Creatinine, Serum 1.85 mg/dL (0.70-1.30); EST Glomerular Filtration Rate 41 mL/min (>60); Est Glom Filt Rate - Afr Amer 49 mL/min (>60); Estimated Creatinine Clearance 56.32 ml/min; Glucose 163 mg/dL (74-106); Potassium 3.6 mmol/L (3.5-5.1); Sodium Level 139 mmol/L (136-145); Troponin-I HS (w/2H Reflex) 7 pg/mL (3.0-78.0)
[2023-12-06 08:19] LABS: Absolute Lymphocyte Count 2.64 X10^3/uL (0.83-4.51); Absolute Neutrophil Count 4.4 X10^3/uL (2.0-7.7); Basophil# 0.06 X10^3/uL; Basophil% 0.7 % (0-1); Eosinophils% 3.6 % (0-5); Hematocrit 46.5 % (40-54); Hemoglobin 15.3 g/dL (13.0-16.5); Lymphocyte # 2.64 X10^3/ul (0.83-4.51); Mean Corp Hgb Conc 32.9 g/dL (32-36); Mean Corpuscular Hgb 29.9 pg (27.0-32.0); Mean Platelet Vol. 9.1 fl (6.2-12.0); Monocyte# 0.74 X10^3/uL; NRBC Flagged by Analyzer 0 % (0-5); Neutrophil # 4.44 X10^3/uL (2.7-7.7); Platelet Count 229 K/mm3 (150-450); RBC Distribution Width CV 12.8 % (11.6-14.6); RBC Distribution Width SD 42.7 fl (35.1-43.9); Red Blood Count 5.11 M/mm3 (4.6-6.2); White Blood Count 8.2 K/mm3 (4.4-11.0)
[2023-12-06] MEDS: Nitroglycerin SL (ED/IMG/CATH) 0.4 MG TABLET SL (08:24)
[2023-12-06 08:39] LABS: D-Dimer Quantitative (DVT/PE) 0.69 FEU/ug/m (0.27-0.49)
--- NOTE | 2023-12-06 08:39 | CT_ITS ---
EXAM: CT ANGIOGRAPHY CHEST WITHOUT AND WITH INTRAVENOUS CONTRAST CLINICAL INDICATION: Elevated D dimer TECHNIQUE: Helically acquired angiography images were obtained of the chest without and with intravenous contrast. This CT exam was performed using one or more of the following dose reduction techniques: automated exposure control, adjustment of the mA and/or kV according to patient size, and/or use of iterative reconstruction technique. MIP reconstructed images were created and reviewed. CONTRAST: IV 100mL [id number] COMPARISON: No relevant prior studies available. FINDINGS: PULMONARY ARTERIES: Normal. Normal in caliber. No evidence of pulmonary embolism. AORTA: Normal. Normal in caliber. No evidence of dissection. GREAT VESSELS OF AORTIC ARCH: Normal. Normal in caliber. No evidence of dissection. LUNGS AND PLEURAL SPACES: Normal. No mass. No consolidation or edema. No pleural effusion or thickening. No pneumothorax. HEART: Normal. No pericardial effusion. Normal heart size. Moderate coronary artery calcification. MEDIASTINUM: Normal. No mediastinal or hilar adenopathy. Esophagus is unremarkable. No hiatal hernia. BONES/JOINTS: Normal. No suspicious lytic or blastic abnormality. CT/CTA Chest W/WO Contrast IMPRESSION: No acute cardiopulmonary abnormality. No evidence of acute pulmonary embolism. Electronically Signed: Jerald Friedman MD at 9:13 EDT ,
--- NOTE | 2023-12-06 08:39 | ED.RN ---
D-DIMER 0.69. DR PETERSEN INFORMED
--- NOTE | 2023-12-06 09:25 | EKG12_ITS ---
Test Reason : Blood Pressure : / mmHG Vent. Rate : 062 BPM Atrial Rate : 062 BPM P-R Int : 160 ms QRS Dur : 088 ms QT Int : 412 ms P-R-T Axes : 033 046 087 degrees QTc Int : 418 ms Critical Test Result: STEMI Normal sinus rhythm ST elevation consider inferior injury or acute infarct ACUTE CO / STEMI Consider right ventricular involvement in acute inferior infarct Abnormal ECG Confirmed by Lamont Martel ([id number]), state editor BRETT BOWERS ([id number]) on 12/08/2023 2:13:32 PM Referred By: Kolton Lange Confirmed By:Lamont Martel
--- NOTE | 2023-12-06 09:31 | ED.RN ---
PT CALLED OUT STATING HE HAD CHEST PAIN, EKG CHANGES NOTED, DR. PETERSEN MADE AWARE/NEW EKG OBTAINED.
--- NOTE | 2023-12-06 09:35 | EKG12_ITS ---
Test Reason : REPEAT-CP Blood Pressure : / mmHG Vent. Rate : 054 BPM Atrial Rate : 054 BPM P-R Int : 154 ms QRS Dur : 090 ms QT Int : 424 ms P-R-T Axes : 041 048 081 degrees QTc Int : 402 ms Sinus bradycardia Otherwise normal ECG Confirmed by Lamont Martel ([id number]), tape editor BRETT BOWERS ([id number]) on 12/08/2023 2:12:06 PM Referred By: Kolton Lange Confirmed By:Lamont Martel
[2023-12-06] MEDS: Heparin Injection (Vial) 5,000 UNIT/ML VIAL 4000 UNIT IV (09:45)
--- NOTE | 2023-12-06 09:48 | NURSING ---
SHOW HOST/HOSTESS BELAL STEMI
[2023-12-06] MEDS: TICAGRELOR 90 MG TABLET 180 MG PO (09:52)
[2023-12-06] MEDS: fentaNYL 100 MCG/2 ML Ampul 25 MCG IV (09:52)
--- NOTE | 2023-12-06 09:56 | NURSING ---
DR ANAND IN ROOM
[2023-12-06 09:57] LABS: Reflex Troponin-HS? (from REC) Y
--- NOTE | 2023-12-06 09:58 | ED.RN ---
DR. SANCHEZ IN ROOM, MADE AWARE PT HAD TAKEN 324 MG OF ASPIRIN AT HOME
[2023-12-06 10:03] LABS: International Normalized Ratio 0.9; Prothrombin Time (Protime)PT. 11.8 SECONDS (11.7-14.9)
[2023-12-06 10:04] LABS: Partial Thromboplast Time 26.4 Seconds (24.1-36.2)
--- NOTE | 2023-12-06 11:00 | ECQM.STEMI ---
STEMI STEMI ED Door Time / Other REG STEMI EKG Time (1) STEMI (ST elevation myocardial infarction): Acute 12/06/23 09:32 Balloon/Aspiration Date-Time Date of Balloon/Aspiration:: 12/06/23 Time of Balloon/Aspiration:: 10:30
[2023-12-06 11:14] LABS: ACT Activated Clotting Time 342 sec (74-137)
[2023-12-06 11:14] LABS: ACT Activated Clotting Time 220 sec (74-137)
--- NOTE | 2023-12-06 12:33 | PCIREPORT_ITS ---
PCI Cardiac Cath Report PCI Report: PCI cardiac cath report 1. Successful PCI of the culprit lesion for STEMI/inferior ME With subtotal mid large dominant RCA, 99%, and ROSALINDA II flow, with predilatation using 3 x 15 mm balloon Followed by placement of drug-eluting stent 3.5 x 34 mm/Bear frontier EHCTOR. With achievement of ROSALINDA III flow and reduction of stenosis to 0%. 2. Measurement of LVEDP and a pullback pressure from LV to the aorta. 3. Placement of TR band to close the right radial artery arteriotomy site. Preprocedure diagnosis; 53-year-old patient seen and evaluated in the ED at [facility] Presenting with symptoms of chest pain this morning. Which is on and off With initial change noted on the cafeteria monitor patient was given some nitroglycerin and heparin aspirin he took aspirin at home. Symptoms recurred with clear evidence of STEMI/acute inferior ME and ST elevation noted in the inferior leads including lead to 3 and aVF. Patient has extensive cardiac history with prior stents To the RCA by Dr. Suarez, here at [facility] He had 2 stents in the RCA at a different time from 2019. And he has been seen and followed regularly by his marketing project manager Dr. Louis. His other medical problem include history of diabetes, hypertension, CKD with baseline creatinine of 1.85. Patient continues to smoke. Consent; Risk and benefit of cardiac catheterization including worsening of his renal function with contrast-induced nephropathy. explained in detail patient elected to proceed informed consent obtained. Diagnostic and interventional equipment used in the House Nurse. 1. 6 Nauruan sheaths placed in the right radial artery 2. 5 Nauruan JL 3 5 diagnostic catheter 3. 6 Nauruan JR 4 guide catheter 4. 0.014 180 cm BMW universal strength 5. 6 Nauruan guide liner 6. 0.035 to 60 cm J exchanged wire. 3 x 15 regular balloon 7. 3.5 x 34 mm Bear frontier drug-eluting stent Medication used in the House Nurse 1. Patient received aspirin 325 mg at home 2. Heparin was used in the ER as well in the House Nurse with ACT level acceptable 3. Integrilin renal dose used. 4. 200 mcg nitroglycerin/intracoronary x 2. 5. Brilinta 180 mg used in the House Nurse Procedure in detail; Patient brought to the House Nurse as an emergency from the ED at [facility] Access obtained from the right radial artery then we will proceed with a diagnostic catheter 3.5 JL 5 advanced sending aorta cannulated the left main multiple views the left coronary system obtained Following this we will proceed with 6 Nauruan JR4 guide catheter and angiographic view of the culprit lesion which is RCA. Following this we proceeded with the guide wire across the lesion followed by balloon dilatation And then we used a guide liner and we proceed with drug-eluting stent 3.5 x 34 mm overlapped with the previous stent in the proximal RCA. The stent was placed in the mid RCA which was subtotal we went up to 16 BARTOLO. And achieve an excellent result with ROSALINDA-3 flow in the RCA and reduction of stenosis from subtotal 99% to 0%. Following this same catheter was used across the aortic valve placed in the mid LV and LVEDP was measured and then a pullback pressure was recorded. Hemodynamics; 1. LVEDP measuring 17 mmHg 2. No systolic gradient across aortic valve. Coronary angiography; 1. Left main large vessel with a distal left main around 20-30%, bifurcating into LAD and left circumflex. 2. Left anterior descending artery diffuse proximal to mid atherosclerosis with multiple segmental lesions of around 130-40%. 3. D1 moderate size vessel branching With diffuse atherosclerosis at the branch side there is ostial lesion of around 70 And there is diffuse atherosclerosis of the diagonal branch which is around 70%. The proximal left circumflex artery had diffuse nonobstructive sclerosis of around 30%. RCA is the culprit large dominant with ectasia of the proximal RCA more than 6 mm. Followed by proximal RCA at the diffuse atherosclerosis nonobstructive around 30-40 The stent in the proximal RCA is patent The mid RCA had a subtotal lesions. As explained underwent successful PCI of the subtotal using assistant hairstylist of the guide liner to deliver the stent. Following this all catheter removed Hemostasis maintained with placement of TR band to the right radial artery site No complication in the House Nurse Conclusion recommendation; 53-year-old patient with a prior history of PCI stent of the RCA x 2 Patient presented with STEMI acute inferior ME in the ER Underwent successful PCI of the culprit lesion Recommend the following #1 dual antiplatelet therapy with Brilinta 90 mg twice daily in addition to low-dose aspirin for 1 year and aspirin indefinitely. 2. Patient to follow-up with his primary marketing project manager Dr. Martinez for continuation of cardiac care and 3. Patient is scheduled for phase 1 cardiac rehab program here at [facility] 4. Patient baseline creatinine was 1.85 The total amount of contrast was used in this case is only 80 cc. 2 minimize the risk of contrast-induced nephropathy. Will monitor the renal function as well as the echocardiogram during this admission. Also I recommended nephrology consultation. 5. Patient advised cessation for smoking and monitoring of his risk factors which include diabetes hypertension. Kolton Lange MD,FACC,[facility]
--- NOTE | 2023-12-06 12:44 | PCM.HP.STD ---
HPI - General General Date of Admission: 12/06/23 Date of Service: 12/06/23 Chief Complaint: Chest pain HPI Narrative MARY TAYLOR, is a 53 M who presented to [facility] ED on 12/06/2023 with chest pain. Found to have ST elevations in leads I and aVL in the ER, STEMI alert called and patient taken emergently to the Chlorobutadiene Scrubber Operator. Found to have subtotal occlusion of the mid RCA, had stent placement with alevism of ROSALINDA-3 flow and reduction of stenosis to 0%. I saw the patient at bedside in the ICU after his heart cath. Patient was fatigued appearing but otherwise laying comfortably in bed, conversing normally, in no acute distress. He denied any chest pain or discomfort currently. Denied any other acute concerns. Patient has extensive cardiac history, follows with [facility], last office visit in May. NSTEMI back in September 2016 with stenting to the left circumflex. Then had an NSTEMI in October 2019 with stenting to the RCA. Last echo was back in 2019, had normal EF at that time. Had stress test in 2020 that also showed normal EF and cardiac function. Patient reports compliance with his medications including aspirin and Plavix but continues to be a cigarette smoker. No other acute concerns at this time. [facility] Medical History Heart attack Wears glasses History of steroid therapy Thyroid disease Diabetes History of renal disease Arthritis High cholesterol Easy bruising Excessive bleeding Back pain TIA (transient ischemic attack) Syncope Gastric reflux Smoker Shortness of breath on exertion Chronic cough History of pain when walking History of stress test History of echocardiogram Cardiology follow-up encounter History of heart attack Erectile dysfunction Syncope Nicotine dependence Palpitations History of ST elevation myocardial infarction (STEMI) (09/29/16) Sleep-disordered breathing Diabetes mellitus type II, controlled Essential hypertension Neurogenic bladder Chronic kidney disease, stage 3 (03/15/13) Atherosclerosis of coronary artery of [place] heart without angina pectoris NSVT (nonsustained ventricular tachycardia) Chronic radicular lumbar pain Spinal stenosis of lumbar region Osteoarthritis Hyperlipidemia Home Medications ?Medication ?Instructions ?Recorded ?Last Taken ?Type escitalopram oxalate 5 mg tablet 5 mg PO DAILY depression 04/21/15 07/25/19 History fish oil-dha-epa 1,200 mg-144 1 each PO DAILY supplement 04/21/15 12/31/22 History mg-216 mg capsule allopurinol 100 mg tablet 100 mg PO DAILY edema; uric acid 07/25/15 07/25/19 History aspirin 81 mg tablet,delayed 81 mg PO DAILY@0800 health 05/01/18 12/31/22 History release maintenance trimethoprim 100 mg tablet 100 mg PO QODAY PRN antibiotic 02/17/20 Unknown History nitroglycerin 0.4 mg sublingual 0.4 mg sublingual Q5M PRN chest 06/09/20 Unknown Rx tablet pain #25 tabs cyclobenzaprine 10 mg tablet 10 mg PO DAILY PRN Pain 1-10 Or 08/12/20 Unknown History Fever meloxicam 7.5 mg tablet 7.5 mg PO PRN PAIN 08/12/20 Unknown History catheter 14 Fr-6 07/22/21 Unknown History esomeprazole magnesium 20 mg 20 mg PO DAILY #30 caps 02/25/22 Unknown Rx capsule,delayed release (Nexium) gabapentin 600 mg tablet 600 mg PO BID 06/04/22 Unknown History glimepiride 4 mg tablet 4 mg PO BID 06/04/22 Unknown History tizanidine 4 mg tablet 4 mg PO QHS PRN muscle spasticity 06/04/22 Unknown History vitamin B complex-vitamin C-folic 1 tab PO DAILY 06/04/22 Unknown History acid 0.8 mg tablet (Otilia-Prema) cholecalciferol (vitamin D3) 25 25 mcg PO DAILY 12/31/22 Unknown History mcg (1,000 unit) tablet (Vitamin D3) hydrocodone-acetaminophen 5-325mg tab PO 05/22/23 Unknown History 5mg-325mg glucosamine sulfate 500 mg tablet 500 mg PO DAILY 07/09/23 Unknown History (Glucosamine) isosorbide mononitrate 60 mg 60 mg PO DAILY #90 tabs 08/21/23 Unknown Rx tablet,extended release 24 hr atorvastatin 80 mg tablet 80 mg PO QHS cholesterol #90 tabs 09/04/23 Unknown Rx carvedilol 25 mg tablet (Coreg) 25 mg PO BID #180 tabs 09/04/23 Unknown Rx clopidogrel 75 mg tablet 75 mg PO DAILY #90 tabs 09/04/23 Unknown Rx furosemide 20 mg tablet See Rx Instructions .Route 09/04/23 Unknown Rx .COMPLEX #90 tabs Allergy/AdvReac Type Severity Reaction Status Date / Time sulfamethoxazole (From Allergy Mild Rash Verified 07/09/23 13:56 Bactrim) trimethoprim (From Bactrim) Allergy Mild Rash Verified 07/09/23 13:56 bupropion (From Wellbutrin) AdvReac Elevated Verified 07/09/23 13:56 BP Family History Grandfather CAD (coronary artery disease) Surgical History History of lateral meniscus repair of right knee History of cardiac catheterization History of coronary artery stent placement (10/25/19) History of left heart catheterization ileoconduit placement History of renal stent urethral stricture surgery urinary tract diverson percutaneous nephrostomy Social History Smoking Status: Current every day smoker tobacco type: cigarettes alcohol intake: never substance use type: does not use caffeine: Yes Type: coffee Number of servings: 2 and tea ROS Constitutional Constitutional: Reports fatigue; Denies chills, fever(s) or weakness Eyes Eyes: Denies change in vision Cardiovascular Cardiovascular: Denies chest pain, edema, lightheadedness or palpitations Respiratory/Chest Respiratory/Chest: Denies cough or shortness of breath at rest Gastrointestinal Gastrointestinal: Denies abdominal pain Vital Signs Vital Signs Vital Signs: 12/06/23 07:42 12/06/23 07:42 12/06/23 07:47 Temperature 95.5 F L 95.5 F L Temperature Source Temporal Temporal Pulse Rate 67 67 Respiratory Rate 16 16 Respiratory Effort Normal Blood Pressure 144/100 H 144/100 H Blood Pressure Mean 114 114 Blood Pressure Source Blood Pressure Position Blood Pressure Location Pulse Ox 97 97 Oxygen Delivery Method Nasal Cannula Nasal Cannula Oxygen Flow Rate (L/min) 2 2 12/06/23 07:55 12/06/23 08:24 12/06/23 08:40 Temperature Temperature Source Pulse Rate 66 67 Respiratory Rate 14 Respiratory Effort Blood Pressure 143/100 H 125/94 H Blood Pressure Mean 104 Blood Pressure Source Blood Pressure Position Blood Pressure Location Pulse Ox 98 Oxygen Delivery Method Nasal Cannula Nasal Cannula Oxygen Flow Rate (L/min) 2 2 12/06/23 09:00 12/06/23 09:40 12/06/23 10:02 Temperature 97.9 F Temperature Source Pulse Rate 60 56 L Respiratory Rate 18 13 14 Respiratory Effort Blood Pressure 142/93 H 145/99 H 128/115 H Blood Pressure Mean 109 119 Blood Pressure Source Blood Pressure Position Blood Pressure Location Pulse Ox 97 97 Oxygen Delivery Method Nasal Cannula Oxygen Flow Rate (L/min) 2 12/06/23 10:03 12/06/23 11:20 12/06/23 11:30 Temperature Temperature Source Pulse Rate 73 78 Respiratory Rate 13 16 Respiratory Effort Blood Pressure 145/99 H 135/103 H 141/116 H Blood Pressure Mean 113 124 Blood Pressure Source Monitor Monitor Blood Pressure Position Semi-Fowlers Semi-Fowlers Blood Pressure Location Left Arm Left Arm Pulse Ox 99 Oxygen Delivery Method Room Air Oxygen Flow Rate (L/min) 12/06/23 11:45 12/06/23 12:00 12/06/23 12:15 Temperature Temperature Source Pulse Rate 77 74 78 Respiratory Rate 15 15 16 Respiratory Effort Blood Pressure 117/100 H 151/90 H 158/106 H Blood Pressure Mean 105 110 123 Blood Pressure Source Monitor Monitor Monitor Blood Pressure Position Semi-Fowlers Semi-Fowlers Semi-Fowlers Blood Pressure Location Right Arm Left Arm Left Arm Pulse Ox 100 99 100 Oxygen Delivery Method Room Air Room Air Room Air Oxygen Flow Rate (L/min) Weight Weight: 100.8 kg Body Mass Index (BMI) 29.3 Physical Exam Const alert, oriented x3, no apparent distress and average body habitus Constitutional Narrative: Pleasant middle-age male, fatigued appearing, otherwise laying comfortably in bed, conversing normally, no acute distress. General Appearance: cooperative and comfortable HEENT normocephalic, head/scalp atraumatic, hearing grossly normal bilaterally, nasal mucous membranes and turbinates normal and moist oral mucous membranes Eyes PERRL, EOMs intact bilaterally and conjunctivae normal Neck full ROM Chest inspection of chest normal Resp normal respiratory effort, normal air movement, no use of accessory muscles and clear to auscultation bilaterally Cardio regular rate, regular rhythm, no murmurs and peripheral pulses 2+ throughout GI normal to inspection, nondistended, normoactive bowel sounds, soft to palpation, non-tender and non-distended Back/Spine normal ROM Extremity normal to inspection, full ROM and no pedal edema Skin no rashes or lesions noted Neuro moves all extremities and no focal motor deficits Speech: speech normal Psych mental status grossly normal Results Lab / Micro Data 12/06/23 07:50 12/06/23 07:50 Labs: Laboratory Results - last 24 hr 12/06/23 07:50: WBC 8.2, RBC 5.11, Hgb 15.3, Hct 46.5, MCV 91.0, MCH 29.9, MCHC 32.9, RDW Std Deviation 42.7, RDW Coeff of Akua 12.8, Plt Count 229, MPV 9.1, Immature Gran % (Auto) 0.700, Neut % (Auto) 54.0, Lymph % (Auto) 32.0, [place] % (Auto) 9.0, Eos % (Auto) 3.6, Baso % (Auto) 0.7, Absolute Neuts (auto) 4.4, Absolute Lymphs (auto) 2.64, Nucleated RBC % 0, PT 11.8, INR 0.9, APTT 26.4, D-Dimer Quant (PE/DVT) 0.69 H*, Sodium 139, Potassium 3.6, Chloride 111 H, Carbon Dioxide 27.0, Anion Gap 1 L, BUN 16, Creatinine 1.85 H, Estim Creat Clear Calc 56.32, Est GFR (MDRD) Af Amer 49 L, Est GFR (MDRD) Non-Af 41 L, BUN/Creatinine Ratio 8.6 L, Glucose 163 H, Calcium 9.1, Troponin I High Sens 7 12/06/23 10:26: Activated Clotting Time 220 H 12/06/23 10:43: Activated Clotting Time 342 H Imaging Radiology Impression Chest X-Ray 12/06/23 07:55 IMPRESSION: No acute cardiopulmonary abnormality. No interval change. Electronically Signed: Jerald Friedman MD at 8:15 EDT , Chest CTA 12/06/23 08:39 IMPRESSION: No acute cardiopulmonary abnormality. No evidence of acute pulmonary embolism. Electronically Signed: Jerald Friedman MD at 9:13 EDT , Assessment & Plan Assessment/Plan (1) STEMI (ST elevation myocardial infarction): PLAN: Plan Patient is a 53-year-old male who presented [facility] ED on 12/06/2023 with chest pain. 1. STEMI; prior history of STEMI and NSTEMI, history of CAD with stenting, hypertension, hyperlipidemia ? Admit under patient status to ICU. Cardiology following. Presented with chest pain, found to have ST elevations in leads I and aVL. Left heart cath showed subtotal mid RCA occlusion s/p stenting x 1 with improvement; otherwise found to have diffuse nonobstructive disease and normal LVEDP with estimated normal EF. Prior stent in proximal RCA patent; noted to have history of LCX stenting in 2017, not commented on in cath report. Per cardiology, will treat with aspirin and Brilinta (previously was on Plavix). Will continue home Coreg at reduced dose for now, increase back to home dose as able. Continue home nitrate. Has had very elevated lipids in the past, repeat lipid panel ordered. Continue home atorvastatin 80 mg daily. Will hold on initiation of KALEN or ARB for now given history of CKD as noted below. Continue cardiac telemetry. Appreciate further cardiology recommendations. 2. CKD stage III ? Creatinine 1.85 on admit, at baseline. Estimated GFR ~55-60. Cardiology notably tried to use limited contrast during cath to avoid causing worsening of kidney function. Follow-up a.m. BMP. Follows with outpatient nephrology but has not seen for some time per patient, recommend close follow-up appointment after this hospitalization. 3. Type 2 diabetes mellitus ? Home regimen of glimepiride 4 mg twice daily. A1c 6.9% on admit, improved from 7.6% in August. Will treat with sliding scale insulin while inpatient. 4. Tobacco abuse ? Current cigarette smoker with significant smoking history. Has been encouraged to quit in the past. Reiterated importance of smoking cessation to patient on admission. Nicotine replacement therapy available while inpatient as needed. Chronic medical conditions: ? Chronic back pain with neuropathy: Follows with Dr. Deutsch with pain management. Not able to find any notes but per patient, receives steroid injections into the lumbar spine somewhat consistently and has been doing fine with this. Pain currently controlled, no inpatient needs. Continue home gabapentin. ? Chronic right knee pain: Follows with orthopedics. Continue outpatient follow-up, no inpatient needs. ? GERD: Continue home PPI. ? Depression: Stable. Continue home escitalopram. ? History of elevated uric acid: Continue home allopurinol. DVT prophylaxis: Lovenox CODE STATUS: Full code, verified Expected disposition: Home, 2 to 3 days Total clinical time spent by myself addressing the patient's medical issues, reviewing all the data, and collaborating with patient's care team: 55 minutes. Charges/Coding Visit Charges Inpatient E&M: 98143 Init Hosp L2
[2023-12-06] MEDS: 0.9% Normal Saline (1000mL) 1,000 ML 75 ML IV (12:50)
--- NOTE | 2023-12-06 13:00 | NURSING ---
Integrilin stopped at this time per Dr. Lange order d/t hematoma of the R wrist
--- NOTE | 2023-12-06 13:46 | ECHOD_ITS ---
Procedure This was a 2D Doppler, Color Flow transthoracic echocardiogram. Exam performed portable in ICU/CCU. Left Ventricle Normal LV size. Left ventricular systolic function is normal. The left ventricular ejection fraction is 55 %. Stage 1 diastolic dysfunction. No regional wall motion abnormalities noted. Right Ventricle Normal RV size. Normal systolic function. Atria Normal left atrium. Normal right atrium. Mitral Valve Normal mitral valve. Tricuspid Valve Normal tricuspid valve. Aortic Valve Trisinus/trileaflet aortic valve. Pulmonic Valve Normal pulmonic valve. Great Vessels Normal aortic root. The pulmonary artery is normal size. Normal inferior vena cava. Pericardium/Pleural No pericardial effusion. MMode/2D Measurements & Calculations LVIDd: 4.5 cm IVSd: 0.87 cm Ao root diam: 3.0 cm LVIDs: 3.6 cm LVPWd: 1.1 cm RVDd: 3.0 cm FS: 20.6 % LAV(MOD-bp): 32.0 ml LVAd ap4: 26.9 cm2 SV(MOD-sp4): 35.0 ml LAV(MOD-bp) Indexed: 14.4 ml/m2 LVLd ap4: 8.8 cm LAV(MOD-sp2): 22.8 ml EDV(MOD-sp4): 66.5 ml LAV(MOD-sp4): 44.9 ml EDV(sp4-el): 69.5 ml LVAs ap4: 17.1 cm2 LVLs ap4: 7.9 cm ESV(MOD-sp4): 31.5 ml ESV(sp4-el): 31.6 ml EF(MOD-sp4): 52.6 % EF(sp4-el): 54.5 % SV(sp4-el): 37.8 ml LA A4 area: 15.9 cm2 LA dimension(2D): 2.7 cm RA A4 area: 9.8 cm2 TAPSE: 1.9 cm Time Measurements MV dec time: 0.18 sec Doppler Measurements & Calculations MV E max lewis: 71.1 cm/sec Lat Peak E' Lewis: 13.2 cm/sec Med Peak E' Lewis: 7.9 cm/sec MV A max lewis: 74.0 cm/sec E/E' lat: 5.4 E/E' med: 9.0 MV E/A: 0.96 MV V2 max: 97.5 cm/sec Ao V2 max: 137.1 cm/sec MV max P.8 mmHg MV dec slope: 406.8 cm/sec2 Ao max P.6 mmHg MV V2 mean: 57.5 cm/sec Ao V2 mean: 95.0 cm/sec MV mean P.5 mmHg Ao mean P.1 mmHg MV V2 VTI: 27.0 cm Ao V2 VTI: 27.5 cm AV (velocity ratio): 0.93 LV V1 max: 114.0 cm/sec PA V2 max: 91.2 cm/sec LV V1 max P.2 mmHg PA V2 mean: 62.3 cm/sec LV V1 mean P.0 mmHg LV V1 mean: 80.7 cm/sec LV V1 VTI: 25.5 cm ECHO/Echo Complete Interpretation Summary Normal LV size. Left ventricular systolic function is normal. The left ventricular ejection fraction is 55 %. Stage 1 diastolic dysfunction. Ordering Physician: Anant Angeles Referring Physician: Kolton Lange Performed By: Jessica Null RCS
[2023-12-06 13:49] LABS: Hemoglobin A1c 6.9 % (3.8-5.6)
[2023-12-06 13:52] LABS: Troponin-I HS 111 pg/mL (3.0-78.0)
[2023-12-06 13:54] LABS: Cholesterol 160 mg/dL (200); High Density Lipoprotein 33 mg/dL; Thyroid Stim Hormone (TSH) 0.89 uIU/mL (0.358-3.74); Triglycerides 471 mg/dL
--- NOTE | 2023-12-06 15:55 | CASEMGMT ---
RN CM Face to Face with patient for initial transition planning/care coordination assessment. RN CM introduced self and role at [facility]. Patient lying in bed, alert and oriented. Patient willing to participate in assessment and is able to answer all questions appropriately. Care providers, pharmacy, and demographics verified. Lace: 8 Strata: 2 PCP: [facility] Specialists: Heriberto, american board certified orthotist; Ishmael, urologsit; Be, reel cart operator; Basali, pain Preferred Pharmacy: [facility] Insurance: [facility] Prescription Benefit: yes, [employer] savings card provided to patient Living Will/HPOA: yes, Anju Nelson LNOK: , son Living Arrangements: Patient lives with in a mobile home, 3 steps and railing to enter the home. Patient is independent at home. Transportation: self, DME/HHC: Patient has access to cane, walker, crutches, and shower chair at home. No previous SNF. Patient has had HHC in the past. Patient wishes to discharge home, denies need for home health at this time. Patient states he has no further needs or concerns at this time. CM to follow for discharge planning needs that may arise. Disposition Plan: Patient to discharge home with family support and follow-up plans in place. Linnette ALVARADO, RN, CM
[2023-12-06] MEDS: Carvedilol 12.5 MG Tablet PO ×2 (17:00→21:09)
[2023-12-06 17:15] LABS: Hematocrit 44.8 % (40-54); Hemoglobin 14.9 g/dL (13.0-16.5); Mean Corp Hgb Conc 33.3 g/dL (32-36); Mean Corpuscular Hgb 29.7 pg (27.0-32.0); Mean Corpuscular Volume 89.2 fL (80-94); Mean Platelet Vol. 9.3 fl (6.2-12.0); Platelet Count 206 K/mm3 (150-450); RBC Distribution Width CV 12.8 % (11.6-14.6); RBC Distribution Width SD 41.7 fl (35.1-43.9); Red Blood Count 5.02 M/mm3 (4.6-6.2); White Blood Count 8.7 K/mm3 (4.4-11.0)
[2023-12-06] MEDS: Atorvastatin Calcium 80 MG Tablet PO (21:09)
[2023-12-06] MEDS: Insulin Lispro 100 UNIT/ML INSULN.PEN SC (21:09)
[2023-12-06] MEDS: Gabapentin 600 MG Tablet PO (21:09)
[2023-12-06 21:46] LABS: Bedside Glucose 181 mg/dL (74-106)
[2023-12-07] VITALS (17 sets, daily range): BP systolic 114–166; BP diastolic 75–98; PULSE 67–110; RESP 15–23; TEMP 36.2–36.7; O2SAT 89–97; BMI 28.9
[2023-12-07 04:14] LABS: Hematocrit 42.9 % (40-54); Hemoglobin 14.3 g/dL (13.0-16.5); Mean Corp Hgb Conc 33.3 g/dL (32-36); Mean Corpuscular Hgb 30.4 pg (27.0-32.0); Mean Corpuscular Volume 91.1 fL (80-94); Platelet Count 190 K/mm3 (150-450); RBC Distribution Width SD 43.5 fl (35.1-43.9); Red Blood Count 4.71 M/mm3 (4.6-6.2); White Blood Count 8.7 K/mm3 (4.4-11.0)
[2023-12-07 04:32] LABS: AST(SGOT) 26 U/L (15-37); Alanine Aminotransfer ALT/SGPT 41 U/L (16-61); Albumin, Serum 3.1 g/dL (3.2-5.0); Alkaline Phosphatase 73 U/L (45-117); Anion Gap 3 (5-15); BUN 13 mg/dL (7-18); BUN/Creat Ratio 8.1 RATIO (10-20); Calcium,Total 8.5 mg/dL (8.5-10.1); Chloride 112 mmol/L (98-107); Creatinine, Serum 1.61 mg/dL (0.70-1.30); EST Glomerular Filtration Rate 48 mL/min (>60); Est Glom Filt Rate - Afr Amer 58 mL/min (>60); Estimated Creatinine Clearance 63.71 ml/min; Glucose 122 mg/dL (74-106); Potassium 3.6 mmol/L (3.5-5.1); Protein, Total 6.1 g/dL (6.4-8.2); Sodium Level 142 mmol/L (136-145)
[2023-12-07] MEDS: Carvedilol 12.5 MG Tablet PO ×2 (08:43→21:08)
[2023-12-07] MEDS: Allopurinol 100 MG Tablet 50 MG PO (08:43)
[2023-12-07] MEDS: Pantoprazole Sodium 20 MG Tablet PO (08:43)
[2023-12-07] MEDS: Isosorbide Mononitrate 60 MG Tablet PO (08:44)
[2023-12-07] MEDS: Cholecalciferol (VIT D3) 25 MCG TABLET (1,000 UNITS) PO (08:44)
[2023-12-07] MEDS: Escitalopram Oxalate 10 MG Tablet 5 MG PO (08:44)
[2023-12-07] MEDS: TICAGRELOR 90 MG TABLET PO ×2 (08:44→21:08)
[2023-12-07] MEDS: Aspirin E.C. 81 MG Tablet PO (08:45)
[2023-12-07] MEDS: Gabapentin 600 MG Tablet PO ×2 (08:49→21:08)
[2023-12-07] MEDS: Lisinopril 10 MG Tablet PO (08:49)
--- NOTE | 2023-12-07 09:51 | PCM.PN.CARD ---
Subjective Subjective No events noted from last night Objective Data Vital Signs: Vital Signs Temp Pulse Resp BP Pulse Ox O2 Del Method O2 Flow Rate 97.5 F L 71 18 144/90 H 97 Room Air 2 12/07/23 04:00 12/07/23 07:00 12/07/23 07:00 12/07/23 07:00 12/07/23 07:54 12/07/23 07:54 12/06/23 09:00 Oxygen Flow Rate (L/min) 2 Oxygen Delivery Method Room Air Weight: 218 lb 4.122 oz Body Mass Index (BMI) 28.9 Intake & Output: Intake and Output for Last 24 Hours 12/05/23 12/06/23 12/07/23 23:59 23:59 23:59 Intake Total 193 / 1930 Output Total 1399 / 2049 1700 / 1700 Balance -1400 / -1600 230 / 230 Lab / Micro Data 12/07/23 04:05 12/07/23 04:05 Labs: Laboratory Results - last 24 hr 12/06/23 07:50: PT 11.8, INR 0.9, APTT 26.4, Hemoglobin A1c 6.9 H, Triglycerides 471 H, Cholesterol 160, LDL Cholesterol TNP, VLDL Cholesterol TNP, HDL Cholesterol 33 L, TSH 0.89 12/06/23 10:26: Activated Clotting Time 220 H 12/06/23 10:43: Activated Clotting Time 342 H 12/06/23 13:20: Troponin I High Sens 111 H 12/06/23 17:00: WBC 8.7, RBC 5.02, Hgb 14.9, Hct 44.8, MCV 89.2, MCH 29.7, MCHC 33.3, RDW Std Deviation 41.7, RDW Coeff of [place] 12.8, Plt Count 206, MPV 9.3 12/06/23 21:04: POC Glucose 181 H 12/07/23 04:05: WBC 8.7, RBC 4.71, Hgb 14.3, Hct 42.9, MCV 91.1, MCH 30.4, MCHC 33.3, RDW Std Deviation 43.5, RDW Coeff of [place] 13.0, Plt Count 190, MPV 9.0, Sodium 142, Potassium 3.6, Chloride 112 H, Carbon Dioxide 27.0, Anion Gap 3 L, BUN 13, Creatinine 1.61 H, Estim Creat Clear Calc 63.71, Est GFR (MDRD) Af Amer 58 L, Est GFR (MDRD) Non-Af 48 L, BUN/Creatinine Ratio 8.1 L, Glucose 122 H, Calcium 8.5, Total Bilirubin 0.20, AST 26, ALT 41, Alkaline Phosphatase 73, Total Protein 6.1 L, Albumin 3.1 L, Globulin 3.0, Albumin/Globulin Ratio 1.0 Cardiology Labs/Tests 12/06/23 07:50: PT 11.8, INR 0.9, APTT 26.4, Hemoglobin A1c 6.9 H, Triglycerides 471 H, Cholesterol 160, LDL Cholesterol TNP, VLDL Cholesterol TNP, HDL Cholesterol 33 L 12/06/23 17:00: WBC 8.7, RBC 5.02, Hgb 14.9, Hct 44.8, MCV 89.2, MCH 29.7, MCHC 33.3, Plt Count 206, MPV 9.3 12/07/23 04:05: WBC 8.7, RBC 4.71, Hgb 14.3, Hct 42.9, MCV 91.1, MCH 30.4, MCHC 33.3, Plt Count 190, MPV 9.0, Sodium 142, Potassium 3.6, Chloride 112 H, Carbon Dioxide 27.0, Anion Gap 3 L, BUN 13, Creatinine 1.61 H, Est GFR (MDRD) Af Amer 58 L, Est GFR (MDRD) Non-Af 48 L, BUN/Creatinine Ratio 8.1 L, Glucose 122 H, Calcium 8.5, Total Bilirubin 0.20 Rhythm: EKG: ECHO: Stress Test: Cardiac Cath: PCI: CT Surgery: Holter monitor: EPS: PPM: CXR: Chest CT Scan: Physical Exam Cardio Cardio Narrative: Cardiac rhythm normal sinus Card exam S1-S2 regular Chest exam is clear to quotation bilaterally. Assessment & Plan Assessment/Plan (1) Atherosclerosis of coronary artery of [place] heart without angina pectoris: QUALIFIERS: Coronary Disease-Associated Artery/Lesion type: [place] artery Qualified Code(s): I25.10 - Atherosclerotic heart disease of [place] coronary artery without angina pectoris (2) History of coronary artery stent placement: (3) Chronic kidney disease, stage 3: QUALIFIERS: Chronic kidney disease stage 3 subtype: unspecified whether 3a or 3b Qualified Code(s): N18.30 - Chronic kidney disease, stage 3 unspecified (4) STEMI (ST elevation myocardial infarction): PLAN: 53-year-old patient with history of CAD And previous PCI stent left circumflex and RCA 2016?2019 This presentation patient presented with symptoms of chest pain with a STEMI/acute inferior ST elevation in the inferior leads need to, 3 and aVF. Patient was taken emergently to cardiac soap slabber. Identified the culprit as the ruptured plaque in the mid RCA with successful PCI and using a drug-eluting stent Is a large size vessel 3.5 x 34 mm drug-eluting stent and achieve excellent result Since then patient has been stable clinically. Cardiac care plan recommendations; Will continue dual antiplatelet therapy with Brilinta aspirin Echocardiogram to evaluate his LV function Other medical problem include hyperlipidemia Hypertension CKD his baseline creatinine was elevated to 1.8 with recommend to follow-up with the strip winder. If he remained stable then patient can be discharged home on Friday with a plan to follow-up with his primary massage coordinator Dr. Louis. I discussed cardiac care plan in detail with the patient, and the nursing staff. Also patient will be scheduled for cardiac rehab program. Advised cessation of smoking. Kolton Lange MD,FAC,[facility]
--- NOTE | 2023-12-07 10:00 | EKG12_ITS ---
Test Reason : STEMI Blood Pressure : / mmHG Vent. Rate : 072 BPM Atrial Rate : 072 BPM P-R Int : 180 ms QRS Dur : 090 ms QT Int : 378 ms P-R-T Axes : 018 058 056 degrees QTc Int : 413 ms Normal sinus rhythm Normal ECG When compared with ECG of 06-DEC-2023 09:32, MANUAL COMPARISON REQUIRED, DATA IS UNCONFIRMED Confirmed by Lamont Martel ([id number]), staff editor EZEQUIEL LUDWIG ([id number]) on 12/09/2023 2:13:20 PM Referred By: Kolton Lange Confirmed By:Lamont Martel
--- NOTE | 2023-12-07 11:44 | PCM.PN.HOSP ---
Reason for Visit Reason for Visit: Diagnoses ST elevation (STEMI) myocardial infarction of unspecified site (12/06/23) Atherosclerotic heart disease of [place] coronary artery without angina pectoris (12/06/23) Chronic kidney disease, stage 3 unspecified (12/06/23) Presence of coronary angioplasty implant and graft (12/06/23) Subjective Subjective No acute events overnight. Remained in normal sinus rhythm on quality assurance monitor with no ectopy. Saw patient at bedside this morning. Patient was sitting up comfortably in bedside chair, in no acute distress. He continued to appear mildly fatigued today but improved from yesterday. Patient states that he still feels fairly wiped out but otherwise denies any acute pain or discomfort today. He does want to get up and walk on the floor when able but feels like his energy level is not back to normal yet. Denies any shortness of breath at rest or with exertion. Denies any feelings of volume overload. No other new concerns today. Objective Data Objective Data Vital Signs: Vital Signs Temp Pulse Resp BP Pulse Ox O2 Del Method O2 Flow Rate 97.5 F L 71 18 144/90 H 97 Room Air 2 12/07/23 04:00 12/07/23 07:00 12/07/23 07:00 12/07/23 07:00 12/07/23 07:54 12/07/23 07:54 12/06/23 09:00 Oxygen Flow Rate (L/min) 2 Oxygen Delivery Method Room Air Weight: 99 kg Body Mass Index (BMI) 28.9 Intake & Output: Intake and Output for Last 24 Hours 12/05/23 12/06/23 12/07/23 23:59 23:59 23:59 Intake Total 1930 / 1930 Output Total 1399 / 0 1700 / 1700 Balance -1400 / -1600 230 / 230 Lab / Micro Data 12/07/23 04:05 12/07/23 04:05 Labs: Laboratory Results - last 24 hr 12/06/23 07:50: Hemoglobin A1c 6.9 H, Triglycerides 471 H, Cholesterol 160, LDL Cholesterol TNP, VLDL Cholesterol TNP, HDL Cholesterol 33 L, TSH 0.89 12/06/23 13:20: Troponin I High Sens 111 H 12/06/23 17:00: WBC 8.7, RBC 5.02, Hgb 14.9, Hct 44.8, MCV 89.2, MCH 29.7, MCHC 33.3, RDW Std Deviation 41.7, RDW Coeff of [place] 12.8, Plt Count 206, MPV 9.3 12/06/23 21:04: POC Glucose 181 H 12/07/23 04:05: WBC 8.7, RBC 4.71, Hgb 14.3, Hct 42.9, MCV 91.1, MCH 30.4, MCHC 33.3, RDW Std Deviation 43.5, RDW Coeff of Ak[place] 13.0, Plt Count 190, MPV 9.0, Sodium 142, Potassium 3.6, Chloride 112 H, Carbon Dioxide 27.0, Anion Gap 3 L, BUN 13, Creatinine 1.61 H, Estim Creat Clear Calc 63.71, Est GFR (MDRD) Af Amer 58 L, Est GFR (MDRD) Non-Af 48 L, BUN/Creatinine Ratio 8.1 L, Glucose 122 H, Calcium 8.5, Total Bilirubin 0.20, AST 26, ALT 41, Alkaline Phosphatase 73, Total Protein 6.1 L, Albumin 3.1 L, Globulin 3.0, Albumin/Globulin Ratio 1.0 Physical Exam Const alert, oriented x3, no apparent distress and average body habitus Constitutional Narrative: Pleasant middle-age male, fatigued appearing, otherwise laying comfortably in bed, conversing normally, no acute distress. General Appearance: cooperative and comfortable HEENT normocephalic, head/scalp atraumatic, hearing grossly normal bilaterally, nasal mucous membranes and turbinates normal and moist oral mucous membranes Eyes PERRL, EOMs intact bilaterally and conjunctivae normal Neck full ROM Chest inspection of chest normal Resp normal respiratory effort, normal air movement, no use of accessory muscles and clear to auscultation bilaterally Resp Narrative: Breathing comfortably on room air at rest. Cardio regular rate, regular rhythm, no murmurs and peripheral pulses 2+ throughout GI normal to inspection, nondistended, normoactive bowel sounds, soft to palpation, non-tender and non-distended Back/Spine normal ROM Extremity normal to inspection, full ROM and no pedal edema Skin no rashes or lesions noted Neuro moves all extremities and no focal motor deficits Speech: speech normal Psych mental status grossly normal Assessment & Plan Assessment/Plan (1) STEMI (ST elevation myocardial infarction): PLAN: Plan Patient is a 53-year-old male who presented [facility] ED on 12/06/2023 with chest pain. 1. STEMI; prior history of STEMI and NSTEMI, history of CAD with stenting, hypertension, hyperlipidemia ? Admit under patient status to ICU. Cardiology following. Presented with chest pain, found to have ST elevations in leads I and aVL. Left heart cath showed subtotal mid RCA occlusion s/p stenting x 1 with improvement; otherwise found to have diffuse nonobstructive disease and normal LVEDP with estimated normal EF. Prior stent in proximal RCA patent; noted to have history of LCX stenting in 2017, not commented on in cath report. Per cardiology, will treat with aspirin and Brilinta (previously was on Plavix). Continue Coreg at reduced dose of 12.5 mg daily, added lisinopril 10 mg daily on 12/06 given persistent moderate hypertension and stable kidney function as noted below. Continue home nitrate. Lipid panel similar to previous, continue home atorvastatin 80 mg daily. Stable for transfer to PCU on 12/06. Echocardiogram ordered, will be done tomorrow. Planning for home either tomorrow or Friday. 2. CKD stage III ? Creatinine 1.85 on admit, slightly improved to 1.61 on hospital day 2. Baseline appears to be around 1.6-1.8. No inpatient nephrology needs, follow-up with outpatient tree thinner as needed. 3. Type 2 diabetes mellitus ? Home regimen of glimepiride 4 mg twice daily. A1c 6.9% on admit, improved from 7.6% in August. Will treat with sliding scale insulin while inpatient. 4. Tobacco abuse ? Current cigarette smoker with significant smoking history. Has been encouraged to quit in the past. Reiterated importance of smoking cessation to patient on admission. Nicotine replacement therapy available while inpatient as needed. Chronic medical conditions: ? Chronic back pain with neuropathy: Follows with Dr. Deutsch with pain management. Not able to find any notes but per patient, receives steroid injections into the lumbar spine somewhat consistently and has been doing fine with this. Pain currently controlled, no inpatient needs. Continue home gabapentin. ? Chronic right knee pain: Follows with orthopedics. Continue outpatient follow-up, no inpatient needs. ? GERD: Continue home PPI. ? Depression: Stable. Continue home escitalopram. ? History of elevated uric acid: Continue home allopurinol. DVT prophylaxis: Lovenox CODE STATUS: Full code, verified Expected disposition: Home, 1 to 2 days Total clinical time spent by myself addressing the patient's medical issues, reviewing all the data, and collaborating with patient's care team: 35 minutes. Charges/Coding Visit Charges Inpatient E&M: 66290 Subs Hosp L2
[2023-12-07] MEDS: Enoxaparin 40 MG/0.4 ML Syringe SC (16:12)
[2023-12-07] MEDS: 0.9% Saline Lock 10 ML Syringe IV (16:13)
[2023-12-07] MEDS: Atorvastatin Calcium 80 MG Tablet PO (21:08)
[2023-12-08 04:00] VITALS: BP 130/85; PULSE 80; RESP 20; TEMP 36.2; O2SAT 95
[2023-12-08 05:55] VITALS: BMI 28.9
[2023-12-08 06:18] LABS: Anion Gap 4 (5-15); BUN 14 mg/dL (7-18); BUN/Creat Ratio 9.2 RATIO (10-20); Calcium,Total 8.6 mg/dL (8.5-10.1); Chloride 109 mmol/L (98-107); Creatinine, Serum 1.53 mg/dL (0.70-1.30); EST Glomerular Filtration Rate 50 mL/min (>60); Est Glom Filt Rate - Afr Amer 61 mL/min (>60); Estimated Creatinine Clearance 66.48 ml/min; Glucose 187 mg/dL (74-106); Potassium 3.5 mmol/L (3.5-5.1); Sodium Level 139 mmol/L (136-145)
--- NOTE | 2023-12-08 06:46 | CRPHASE1 ---
Patient Communication Patient Information Former Patient:: Phase I and Phase II PHII Cardiac Rehab Discussed with Patient:: Yes Guide to Cardiac Rehab Given to Patient:: Yes Cardiac Rehab Facility Choice List Given to Patient:: Yes Communication to Cardiac Rehab Sessions:: 36 sessions - 3 days/wk, 12 weeks Cardiac Rehabilitation Info Program Information Cardiac Rehabilitation Program Information: Cardiac Rehab The cardiac rehab team at [facility] consists of highly skilled exercise physiologists, nurses, respiratory therapists and physicians working together with you. Our purpose is to help you have a full recovery and achieve the goals you set for yourself. Over the years many of our patients have returned to activities they assumed they would never do again! We can help restore your confidence and motivation to make lifestyle changes that can have a significant impact on your health and quality of life! We can help answer questions and concerns you may have about exercise, lifestyle, medications, diet, stress and anxiety which are common following a hospitalization. WE monitor ECG and vital signs during exercise and discuss your progress with you and report to your physician(s). Cardiac Rehab is proven to help reduce readmissions, improve functional capacity and lower recurrence of problems with your heart. Our Cardiac Rehab program is Certified by the [place] [employer] Pulmonary [employer] (AACVPR) and Accredited by the [place] [employer] through our [facility]. You can contact us at . We invite you to call us with your questions or to get started in our program. If you have other questions or concerns be sure to ask your physician/provider during your follow-up visit. WE look forward to seeing you!
--- NOTE | 2023-12-08 06:47 | CRPH1.INSTRU ---
General Education Discussed with Patient CAD and cardiac anatomy and function:: Patient communicates acknowledgment Explanation of diagnoses and procedures:: Patient communicates acknowledgment Sign/Symptoms of VT:: Patient communicates acknowledgment Antiplatelet therapy: Patient communicates acknowledgment Proper use of NTG-SL: Patient communicates acknowledgment Emergency procedures and activation of EMS: Patient communicates acknowledgment Compliance of all prescribed medications: Patient communicates acknowledgment Smoking Risk Factors Patient Nicotine/Smoking Risk Factors Are:: Cigarettes Recommendations Recommendations Include:: Smoking cessation strategies/Smoking packet Response Code Nicotine/Smoking Response Code:: Patient communicates acknowledgment Dyslipidemia Recommendations Recommendations Include:: Lipid profile not available Response Code Dyslipidemia Response Code:: Patient communicates acknowledgment Overweight/Obesity Risk Factors Patient Overweight/Obesity Risk Factors Are:: BMI Normal [24-29 & > 65 years old] Recommendations Recommendations Include:: Reduced calorie diet and Exercise 5-7 times/week Response Code Overweight/Obesity:: Patient communicates acknowledgment Hypertension Recommendations Recommendations Include:: Maintain BP <130/85 Response Code Hypertension:: Patient communicates acknowledgment Heart Disease Risk Factors Patient Heart Disease Risk Factors Are:: Family history of heart disease < 65 years old and Previous cardiac event Recommendations Recommendations Include:: Educated family members of their risk and Educated family members of importance of prevention of heart disease Response Code Heart Disease Response Code:: Patient communicates acknowledgment Diabetes Recommendations Recommendations Include:: Maintain fasting blood sugars 70-110 md/dL, Maintain HgbA1c of 6% or less and Monitor blood sugar as prescribed Response Code Diabetes:: Patient communicates acknowledgment Metabolic Syndrome Recommendations Recommendations Include:: Does not meet criteria Sedentary Recommendations Recommendations Include:: Monitored Outpatient Cardiac Rehab Response Code Sedentary Response Code:: Patient communicates acknowledgment Stress Risk Factors Patient Stress Risk Factors Are:: Patient denies stress as a risk factor Recommendations Recommendations Include:: Identification of stressors, and assessment of coping skills and Stress management techniques Response Code Stress Response Code:: Patient communicates acknowledgment
[2023-12-08 09:01] VITALS: BP 131/91; PULSE 77; RESP 15; TEMP 36.1; O2SAT 96
[2023-12-08] MEDS: Isosorbide Mononitrate 60 MG Tablet PO (09:07)
[2023-12-08] MEDS: Cholecalciferol (VIT D3) 25 MCG TABLET (1,000 UNITS) PO (09:07)
[2023-12-08] MEDS: Escitalopram Oxalate 10 MG Tablet 5 MG PO (09:07)
[2023-12-08] MEDS: Allopurinol 100 MG Tablet 50 MG PO (09:07)
[2023-12-08] MEDS: Pantoprazole Sodium 20 MG Tablet PO (09:07)
[2023-12-08] MEDS: TICAGRELOR 90 MG TABLET PO (09:07)
[2023-12-08] MEDS: Enoxaparin 40 MG/0.4 ML Syringe SC (09:08)
[2023-12-08] MEDS: Aspirin E.C. 81 MG Tablet PO (09:08)
[2023-12-08] MEDS: Lisinopril 5 MG Tablet PO (09:16)
[2023-12-08] MEDS: Gabapentin 600 MG Tablet PO (09:17)
[2023-12-08] MEDS: Carvedilol 25 MG Tablet PO (09:17)
--- NOTE | 2023-12-08 10:00 | EKG12_ITS ---
Test Reason : AM EKG Blood Pressure : / mmHG Vent. Rate : 079 BPM Atrial Rate : 079 BPM P-R Int : 162 ms QRS Dur : 088 ms QT Int : 372 ms P-R-T Axes : 049 041 052 degrees QTc Int : 426 ms Normal sinus rhythm Normal ECG When compared with ECG of 06-DEC-2023 09:32, MANUAL COMPARISON REQUIRED, DATA IS UNCONFIRMED Confirmed by Lamont Martel ([id number]), development editor EZEQUIEL LUDWIG ([id number]) on 12/09/2023 2:13:11 PM Referred By: Kolton Lange Confirmed By:Lamont Martel
--- NOTE | 2023-12-08 12:33 | PCM.DC.SUM ---
Providers Date of Admission: 12/06/23 Date of Discharge: 12/08/23 Primary Care Physician: Dr. Brennan Ty MD Consultations 12/06/23 12:35 Consult: Hospitalist Routine Consulting Provider: Anant Angeles Reason for Consult: Medical management EMERGENT Consult: No MD Notified: Yes Date Notified: 12/06/23 Time Notified: 12:35 Method of Notification: Text Reason For Visit: STEMI Diagnosis Discharge Diagnosis (1) STEMI (ST elevation myocardial infarction): Status: Acute Code(s): I21.3 - ST elevation (STEMI) myocardial infarction of unspecified site Medications at Discharge Home Medications escitalopram oxalate 5 mg tablet 5 mg PO DAILY depression 04/21/15 fish oil-dha-epa 1,200 mg-144 mg-216 mg capsule 1 each PO DAILY supplement 04/21/15 allopurinol 100 mg tablet 100 mg PO DAILY edema; uric acid 07/25/15 aspirin 81 mg tablet,delayed release 81 mg PO DAILY@0800 health maintenance 05/01/18 nitroglycerin 0.4 mg sublingual tablet 0.4 mg sublingual Q5M PRN chest pain #25 tabs 06/09/20 cyclobenzaprine 10 mg tablet 10 mg PO DAILY PRN Pain 1-10 Or Fever 08/12/20 meloxicam 7.5 mg tablet 7.5 mg PO PRN PAIN 08/12/20 esomeprazole magnesium 20 mg capsule,delayed release (Nexium) 20 mg PO DAILY #30 caps 02/25/22 gabapentin 600 mg tablet 600 mg PO BID 06/04/22 glimepiride 4 mg tablet 4 mg PO BID 06/04/22 tizanidine 4 mg tablet 4 mg PO QHS PRN muscle spasticity 06/04/22 vitamin B complex-vitamin C-folic acid 0.8 mg tablet (Otilia-Prema) 1 tab PO DAILY 06/04/22 cholecalciferol (vitamin D3) 25 mcg (1,000 unit) tablet (Vitamin D3) 25 mcg PO DAILY 12/31/22 glucosamine sulfate 500 mg tablet (Glucosamine) 500 mg PO DAILY 07/09/23 isosorbide mononitrate 60 mg tablet,extended release 24 hr 60 mg PO DAILY #90 tabs 08/21/23 atorvastatin 80 mg tablet 80 mg PO QHS cholesterol #90 tabs 09/04/23 carvedilol 25 mg tablet (Coreg) 25 mg PO BID #180 tabs 09/04/23 lisinopril 5 mg tablet 5 mg PO DAILY 30 days #30 tabs 12/08/23 ticagrelor 90 mg tablet (Brilinta) 90 mg PO BID 30 days #60 tabs 12/08/23 Hospital Course Operations None Procedures Cardiac catheterization, EKG, Transthoracic echo and - (Chest x-ray, CTA chest) Summary of Care Provided Minutes Spent on Discharge: 35 Hospital Course: Patient is a 53-year-old male who presented [facility] ED on 12/06/2023 with chest pain. Hospital course as noted below. Patient discharged home with no therapy needs in stable condition on 12/07. 1. STEMI; prior history of STEMI and NSTEMI, history of CAD with stenting, hypertension, hyperlipidemia ? Cardiology followed. Presented with chest pain, found to have ST elevations in leads I and aVL. Left heart cath showed subtotal mid RCA occlusion s/p stenting x 1 with improvement; otherwise found to have diffuse nonobstructive disease and normal LVEDP with estimated normal EF. Prior stent in proximal RCA patent; noted to have history of LCX stenting in 2017, not commented on in cath report. Echo 12/07 showed EF 55%, stage I diastolic dysfunction, no other abnormalities. Lipid panel similar to previous. Had no ectopy on telemetry and no further issues during hospitalization. Discharged home on aspirin, Brilinta, atorvastatin, Coreg, nitrate and lisinopril. Outpatient follow-up with cardiology in about 1 week. 2. CKD stage III ? Creatinine 1.85 on admit, improved to 1.5 during this position. Baseline appears to be around 1.5-1.8. No inpatient nephrology needs, follow-up with outpatient air brush decorator as needed. 3. Type 2 diabetes mellitus ? Home regimen of glimepiride 4 mg twice daily. A1c 6.9% on admit, improved from 7.6% in August. Treated with sliding scale insulin while inpatient, okay to resume glimepiride on discharge. 4. Tobacco abuse ? Current cigarette smoker with significant smoking history. Has been encouraged to quit in the past. Reiterated importance of smoking cessation to patient on admission. Nicotine replacement therapy available while inpatient as needed. Chronic medical conditions: ? Chronic back pain with neuropathy: Follows with Dr. Deutsch with pain management. Not able to find any notes but per patient, receives steroid injections into the lumbar spine somewhat consistently and has been doing fine with this. Pain controlled, no inpatient needs. Continue home gabapentin. ? Chronic right knee pain: Follows with orthopedics. Continue outpatient follow-up, no inpatient needs. ? GERD: Continue home PPI. ? Depression: Stable. Continue home escitalopram. ? History of elevated uric acid: Continue home allopurinol. Total clinical time spent by myself addressing the patient's medical issues, reviewing all the data, and collaborating with patient's care team: 35 minutes. Physical Exam Const alert, oriented x3, no apparent distress and average body habitus Constitutional Narrative: Pleasant middle-age male, energy improved, laying comfortably in bed, conversing normally, no acute distress. General Appearance: cooperative and comfortable HEENT normocephalic, head/scalp atraumatic, hearing grossly normal bilaterally, nasal mucous membranes and turbinates normal and moist oral mucous membranes Eyes PERRL, EOMs intact bilaterally and conjunctivae normal Neck full ROM Chest inspection of chest normal Resp normal respiratory effort, normal air movement, no use of accessory muscles and clear to auscultation bilaterally Cardio regular rate, regular rhythm, no murmurs and peripheral pulses 2+ throughout GI normal to inspection, nondistended, normoactive bowel sounds, soft to palpation, non-tender and non-distended Back/Spine normal ROM Extremity normal to inspection, full ROM and no pedal edema Skin no rashes or lesions noted Neuro moves all extremities and no focal motor deficits Speech: speech normal Psych mental status grossly normal Weight / BMI Weight Weight: 99 kg Body Mass Index (BMI) 28.9 ABG / Lab / Microbiology Data 12/07/23 04:05 12/08/23 05:50 Laboratory: Laboratory Results - last 24 hr 12/08/23 05:50: Sodium 139, Potassium 3.5, Chloride 109 H, Carbon Dioxide 26.0, Anion Gap 4 L, BUN 14, Creatinine 1.53 H, Estim Creat Clear Calc 66.48, Est GFR (MDRD) Af Amer 61, Est GFR (MDRD) Non-Af 50 L, BUN/Creatinine Ratio 9.2 L, Glucose 187 H, Calcium 8.6 D/C Instructions Discharge Diet: No restrictions Meaningful Use Info Meaningful Use Meaningful Use Diagnoses (Choose all that apply): AMI AMI/Post PCI/Angioplasty Aspirin given w/in 24hrs of arrival?: Yes ASA at discharge?: Yes Statins at discharge?: Yes Gregorio/ARB at discharge?: Yes Beta Obdulia at discharge?: Yes Done w/ Acute MT measure.: Yes Ischemic Stroke Statin Dosing Therapy Reference: STATIN DOSE THERAPY REFERENCE: * Patients > 75 years receive moderate or high dose statin therapy. * Patients 75 years or YOUNGER should receive HIGH intensity statin dose unless contraindicated. You will be required to document reason for non-treatment if statin daily dose does not meet guidelines. HIGH DOSE STATIN THERAPY DAILY Atorvastatin > than or = to 40 mg Rosuvastatin > than or = to 20 mg Amlodipine + Atorvastatin > than or = to 2.5/40 mg Ezetimibe + Simvastatin 10/80 mg Simvastatin 80mg Discharge Plan Admission Admit Date/Time: 12/06/23 13:45 Primary Reason for Your Visit: chest pain Attending Provider: Anant Angeles Primary Care Provider: Brennan Ty Consulting Providers: Kolton Lange; Anant Angeles Instructions Additional Instructions / Restrictions: Please start taking Brilinta twice daily and lisinopril once daily going forward. He will not be taking Plavix or Lasix going forward. The cardiology office will call to schedule a follow-up appointment for you in the next 7 to 10 days. Discharge Orders/Prescriptions Prescriptions: New lisinopril 5 mg Tablet 5 mg PO DAILY 30 Days Qty: 30 2RF Brilinta 90 mg Tablet 90 mg PO BID 30 Days Qty: 60 2RF Continued tizanidine 4 mg tablet 4 mg PO QHS PRN (Reason: muscle spasticity) gabapentin 600 mg tablet 600 mg PO BID glimepiride 4 mg tablet 4 mg PO BID Otilia-Prema 0.8 mg tablet 1 tab PO DAILY Patient Comments: TAKE 1 TABLET BY MOUTH ONCE DAILY glucosamine sulfate [Glucosamine] 500 mg tablet 500 mg PO DAILY Rx Instructions: administer with a meal fish oil-dha-epa 1 EACH capsule 1 each PO DAILY Patient Comments: SUPPLEMENT escitalopram oxalate 5 MG tablet 5 mg PO DAILY Patient Comments: DEPRESSION allopurinol 100 MG tablet 100 mg PO DAILY Patient Comments: ANTI-GOUT aspirin 81 MG tablet 81 mg PO DAILY@0800 cyclobenzaprine 10 MG tablet 10 mg PO DAILY PRN (Reason: Pain 1-10 Or Fever) meloxicam 7.5 MG tablet 7.5 mg PO PRN cholecalciferol (vitamin D3) [Vitamin D3] 25 mcg (1,000 unit) tablet 25 mcg PO DAILY nitroglycerin 0.4 mg tablet, sublingual 0.4 mg SL Q5M PRN (Reason: chest pain) Qty: 25 3RF Rx Instructions: do not exceed 3 doses per episode esomeprazole magnesium [Nexium] 20 mg capsule,delayed release(DR/EC) 20 mg PO DAILY Qty: 30 11RF isosorbide mononitrate 60 mg tablet extended release 24 hr 60 mg PO DAILY Qty: 90 3RF atorvastatin 80 mg tablet 80 mg PO QHS Qty: 90 3RF carvedilol [Coreg] 25 mg tablet 25 mg PO BID Qty: 180 3RF Rx Instructions: must administer with a meal/food Discontinued hydrocodone-acetaminophen 5-325 mg tablet PO trimethoprim 100 mg tablet 100 mg PO QODAY PRN (Reason: antibiotic) Rx Instructions: (DME) catheter 14-6 Fr- Misc MISCELLANEOUS clopidogrel 75 mg tablet 75 mg PO DAILY Qty: 90 3RF Rx Instructions: TAKE 1 TABLET EVERY DAY FOR ANTI PLATELET furosemide 20 mg tablet See Rx Instructions .ROUTE .COMPLEX Qty: 90 3RF Dose Instruction: TAKE 1 TABLET DAILY Rx Instructions: TAKE 1 TABLET DAILY Referrals / Follow Up: Brennan Ty MD [Primary Care Provider] - Disposition Disposition (needs filled in before D/C Order can be placed): Home, Self Care Charges/Coding Visit Charges Inpatient E&M: 47955 Disch Hosp >30min
--- NOTE | 2023-12-08 13:59 | CASEMGMT ---
Hospitalist inquiring about cost for Brilinta for pt, RN CM called [facility] for [place]addell check on Brilinta, pharmacist stated it is a $42 copay. Notified Hospitalist of cost.
[2023-12-08 14:43] VITALS: BP 128/89; PULSE 79; RESP 18; TEMP 35.9; O2SAT 94
== END 2023-12-08 15:39 | disposition home or self-care (01) | DRG 322 ==
LOC: ED 09:53 → ICU 10:01
PROVIDERS: Admitting Provider Internal Medicine Interventional Cardiology; Emergency Provider Emergency Medicine; PCP Family Medicine; Referring Provider Internal Medicine Interventional Cardiology; Visit Provider Hospitalist
DX: I21.11 ST elevation (STEMI) myocardial infarction involving right coronary artery (principal); E11.22 Type 2 diabetes mellitus with diabetic chronic kidney disease; E11.40 Type 2 diabetes mellitus with diabetic neuropathy, unspecified; N18.30 Chronic kidney disease, stage 3 unspecified; F32.A Depression, unspecified; I12.9 Hypertensive chronic kidney disease with stage 1 through stage 4 chronic kidney disease, or unspecified chronic kidney disease; E11.65 Type 2 diabetes mellitus with hyperglycemia; I25.10 Atherosclerotic heart disease of native coronary artery without angina pectoris; F17.210 Nicotine dependence, cigarettes, uncomplicated; K21.9 Gastro-esophageal reflux disease without esophagitis; E78.5 Hyperlipidemia, unspecified; M54.9 Dorsalgia, unspecified; M25.561 Pain in right knee; I25.2 Old myocardial infarction; Z95.5 Presence of coronary angioplasty implant and graft; Z79.02 Long term (current) use of antithrombotics/antiplatelets; Z79.82 Long term (current) use of aspirin; G89.29 Other chronic pain; Z79.84 Long term (current) use of oral hypoglycemic drugs; Z86.73 Personal history of transient ischemic attack (TIA), and cerebral infarction without residual deficits
CPT/HCPCS: 51702; 71045; 71275; 80048; 80053; 80061; 82962; 83036; 84443; 84484; 85025; 85027; 85347; 85379; 85610; 85730; 92941; 93005; 93306; 93454; 97802; 99152; 99153; 99285; J7030; Q9967; A4216; C1725; C1769; C1874; C1887; C1894; C9606; J1327

== ENCOUNTER → 2023-12-17 | Outpatient (CLI) | payer MEDICARE, SELFPAY ==
[2020-01-31 15:30] VITALS: BMI 28.6
[2023-12-17 11:06] LABS: Absolute Lymphocyte Count 1.67 X10^3/uL (0.83-4.51); Absolute Neutrophil Count 5.1 X10^3/uL (2.0-7.7); Basophil# 0.07 X10^3/uL; Basophil% 0.9 % (0-1); Eosinophil# 0.29 X10^3/uL; Eosinophils% 3.7 % (0-5); Hematocrit 44.4 % (40-54); Hemoglobin 14.6 g/dL (13.0-16.5); Lymphocyte # 1.67 X10^3/ul (0.83-4.51); Lymphocyte % 21.2 % (19-41); Mean Corp Hgb Conc 32.9 g/dL (32-36); Mean Corpuscular Hgb 29.5 pg (27.0-32.0); Mean Corpuscular Volume 89.7 fL (80-94); Mean Platelet Vol. 9.5 fl (6.2-12.0); Monocyte# 0.67 X10^3/uL; Monocyte% 8.5 % (0-10); NRBC Flagged by Analyzer 0 % (0-5); Neutrophil # 5.11 X10^3/uL (2.7-7.7); Neutrophil % 64.7 % (47-70); Platelet Count 246 K/mm3 (150-450); RBC Distribution Width CV 12.9 % (11.6-14.6); RBC Distribution Width SD 42.1 fl (35.1-43.9); Red Blood Count 4.95 M/mm3 (4.6-6.2); White Blood Count 7.9 K/mm3 (4.4-11.0)
[2023-12-17 11:44] LABS: Anion Gap 4 (5-15); BUN 18 mg/dL (7-18); BUN/Creat Ratio 9.5 RATIO (10-20); Calcium,Total 9.6 mg/dL (8.5-10.1); Chloride 106 mmol/L (98-107); EST Glomerular Filtration Rate 39 mL/min (>60); Est Glom Filt Rate - Afr Amer 48 mL/min (>60); Glucose 154 mg/dL (74-106); Potassium 4.3 mmol/L (3.5-5.1); Sodium Level 139 mmol/L (136-145)
== END | disposition home or self-care (01) ==
LOC: LAB 10:34
PROVIDERS: PCP Family Medicine; Referring Provider Nurse Practitioner Gerontology; Visit Provider Nurse Practitioner Gerontology
DX: R53.83 Other fatigue (principal); I10 Essential (primary) hypertension
CPT/HCPCS: 36415; 80048; 84443; 85025

== ENCOUNTER → 2023-12-24 | Outpatient (CLI) | payer MEDICARE, SELFPAY ==
[2020-01-31 15:30] VITALS: BMI 28.6
--- NOTE | 2023-12-24 08:08 | CR.HP_ITS ---
CR - History & Physical General Arrival date:: 12/24/23 Arrival time:: 08:08 Date of Referral:: 12/11/23 Date of CR Evaluation:: 12/24/23 Referring Physician: Dr. Louis Primary Diagnosis: PCI with stent History of Present Cardiac Event Onset Date PTCA or coronary stenting:: Yes Vessel: RCA 12/06/23 onset Medications Ambulatory Orders ?Medication ?Instructions ?Recorded escitalopram oxalate 5 mg tablet 5 mg PO DAILY depression 04/21/15 fish oil-dha-epa 1,200 mg-144 1 each PO DAILY supplement 04/21/15 mg-216 mg capsule allopurinol 100 mg tablet 100 mg PO DAILY edema; uric acid 07/25/15 aspirin 81 mg tablet,delayed 81 mg PO DAILY@0800 health 05/01/18 release maintenance nitroglycerin 0.4 mg sublingual 0.4 mg sublingual Q5M PRN chest 06/09/20 tablet pain #25 tabs cyclobenzaprine 10 mg tablet 10 mg PO DAILY PRN Pain 1-10 Or 08/12/20 Fever meloxicam 7.5 mg tablet 7.5 mg PO PRN PAIN 08/12/20 esomeprazole magnesium 20 mg 20 mg PO DAILY #30 caps 02/25/22 capsule,delayed release (Nexium) gabapentin 600 mg tablet 600 mg PO BID 06/04/22 glimepiride 4 mg tablet 4 mg PO BID 06/04/22 tizanidine 4 mg tablet 4 mg PO QHS PRN muscle spasticity 06/04/22 vitamin B complex-vitamin C-folic 1 tab PO DAILY 06/04/22 acid 0.8 mg tablet (Otilia-Prema) cholecalciferol (vitamin D3) 25 25 mcg PO DAILY 12/31/22 mcg (1,000 unit) tablet (Vitamin D3) glucosamine sulfate 500 mg tablet 500 mg PO DAILY 07/09/23 (Glucosamine) isosorbide mononitrate 60 mg 60 mg PO DAILY #90 tabs 08/21/23 tablet,extended release 24 hr atorvastatin 80 mg tablet 80 mg PO QHS cholesterol #90 tabs 09/04/23 carvedilol 25 mg tablet (Coreg) 25 mg PO BID #180 tabs 09/04/23 lisinopril 5 mg tablet 5 mg PO DAILY 30 days #30 tabs 12/08/23 ticagrelor 90 mg tablet (Brilinta) 90 mg PO BID 30 days #180 tabs 12/17/23 Allergies Allergies sulfamethoxazole (From Bactrim) Allergy (Mild, Verified 12/17/23 10:12) Rash trimethoprim (From Bactrim) Allergy (Mild, Verified 12/17/23 10:12) Rash bupropion (From Wellbutrin) Adverse Reaction (Verified 12/17/23 10:12) Elevated BP Sleep Disorder Evaluation Hx of Sleep Apnea: No Do you snore loudly (louder than talking or can be heard through closed doors)?: Yes Do you often feel tired/ fatigued/ sleepy during daytime?: Yes Has anyone observed you stop breathing during sleep?: Yes History of Hypertension (for STOP score): Yes STOP Results: Positive Advanced Directives Advanced Directives Power of Clothing Pattern Preparer: No Living Will: Yes Advance Directives Information Provided: No Advance Directives on File: No DNR Order?:: No Past Medical History Covid-19 Screening Physicial Symptoms Other Clinical Concerns Exposure Risk Pertinent Comorbidities Has a serious heart condition:: Yes Diabetic:: Yes Past Medical Illness Past Medical History (Updated 12/17/23 @ 10:49 by Janett Read NP, [employer]) Heart attack I21.9 Wears glasses Z97.3 History of steroid therapy Z92.[address] MUNOZ Thyroid disease E07.9 SECONDARY PARATHYROIDISM Diabetes E11.9 History of renal disease Z87.448 CKD III Arthritis M19.90 High cholesterol E78.00 Easy bruising R23.3 ON PLAVIX Excessive bleeding R58 ON PLAVIX Back pain M54.9 SCIATIC TIA (transient ischemic attack) G45.9 2006-NO RESIDUAL Syncope R55 2018 X2 EPISODES- HE HAS NO REASON WHY Gastric reflux K21.9 Smoker F17.200 1PPD FOR 40+ YRS Shortness of breath on exertion R06.02 Chronic cough R05.3 SMOKER History of pain when walking Z87.898 History of stress test Z92.89 06/21/2022 History of echocardiogram Z92.89 10/01/2019 Cardiology follow-up encounter Z09 [facility], LAST VISIT 06/04/2022 History of heart attack I25.2 2019 Erectile dysfunction N52.9 Syncope R55 Nicotine dependence F17.[address] elevation myocardial infarction (STEMI) (09/29/16) I25.2 Sleep-disordered breathing G47.30 Diabetes mellitus type II, controlled E11.9 Essential hypertension I10 Neurogenic bladder N31.9 Chronic kidney disease, stage 3 (03/15/13) N18.3 Atherosclerosis of coronary artery of [place] heart without angina pectoris I25.10 NSVT (nonsustained ventricular tachycardia) I47.2 Chronic radicular lumbar pain M54.16, G89.29 Spinal stenosis of lumbar region M48.06 Osteoarthritis M19.90 Hyperlipidemia E78.5 Past Surgical History Surgical History History of lateral meniscus repair of right knee History of cardiac catheterization History of coronary artery stent placement (12/06/23) History of left heart catheterization ileoconduit placement History of renal stent urethral stricture surgery urinary tract diverson percutaneous nephrostomy Surgical History: - Family History Summary Family History Grandfather CAD (coronary artery disease) Social History Smoking History Smoking Status: Current every day smoker Years Smokin (.5-.75 packs a day) Alcohol Use Alcohol Usage: No Substance Abuse Hx Substance Use: No Occupation Occupation (List type of work in comments):: Employed Hours worked per day:: 12 Returned to work on:: 12/30/23 Hobbies, Recreation, Social Activities Hobbies: Reading Recreational Activities: I am able to engage in most, but not all activities Social Environment Status Marital Status: Current Living Arrangements Living Environment:: Spouse Children How many children do you have?: 3 Do any of your children live nearby?: Yes Safety Do you feel safe in your surroundings?: Yes Assistance Do you need any assistance at home?: no Review of Systems Review of Systems Hints Review of Present Symptoms: Reports Shortness of Breath with Exertion, Operative Discomfort, Dizziness/Lightheadedness, Fatigue, Appetite - Normal, Appetite - Special Diet and Sleep - Normal; Denies Shortness of Breath at Rest, PVD, Angina, Wound Healing, Heart Arrhythmia/Irregularities or Sexual Changes Pain Is Patient Pain Free?: Yes Pain Location: back and lower extremity Pain Level: 10 Risk Factor Assessment Chief Complaint Chief Complaint: PCI with stent Vital Signs Pulse Ox: 96 Blood Pressure: 140/100 Pulse Pulse Rate: 65 Pulse Rhythm: Regular Hypertension How long have you been treated?: unsure Blood Pressure Sitting - Left Arm: 140/100 Stress Stress: Recent and - (financial) Diabetes Diabetic History: Type II Obesity Height: 6 ft 0.83 in Weight:: 222 lb 8 oz Weight in Pounds: 222.5 lbs Body Mass Index (BMI): 29.5 Nutritional Referral for Obesity: No Physical Inactivity Physical Inactivity: Recreational activity Risk Stratification Risk Guidelines: Moderate Risk: Risk Factor for Obesity, Risk Factor for Sedentary Lifestyle and Risk Factor for Depression and Highest Risk: Risk Factor for Smoking, Risk Factor for Dyslipidemia, Risk Factor for Diabetes and Risk Factor for Hypertension For Smoking Smoking Risk Guidelines For Dyslipidemia Dyslipidemia Risk Guidelines For Diabetes Mellitus Diabetes Risk Guidelines For Obesity/Overweight Obesity/Overweight Risk Guidelines For Hypertension Hypertension Risk Guidelines For Sedentary Lifestyle Sedentary Lifestyle Risk Guidelines For Depression Depression Risk Guidelines Family History Family History Grandfather CAD (coronary artery disease) Motivation Motivation to Participate On a scale of 1 to 10, how prepared are you to commit to attending program?: 9 What do you see as barriers to successfully being able to complete the program?: nothing What do you see as the benefits of succesfully completing the program? In other words, what do you hope to get out of participating in the program?: get into an exercise routine Are there issues you are dealing with that will interfere with completing the program?: no Do you have a spouse or signficant other, family or friends who will help support you to complete the program?: yes
--- NOTE | 2023-12-24 08:15 | CR.ITP_ITS ---
Diagnosis General Information Admitting Diagnosis: PCI with stent Personal Learning Style:: Audio/Visual Barriers to Learning: No Barriers Stage of change r/t lifestyle modifications:: Contemplation Gave educational material for:: Treating Heart Disease, How The Heart Works, What it means to have Heart Disease, How Coronary Artery Disease is Diagnosed, Heart Procedures, What Heart Medications Do, Risk Factors & Modifications, Living an Active Life, Nutrition, Emotions & Heart Disease, Stress Management & Relaxation and Sleep Disorders & Heart Disease Education/Goals Cardiac Rehabilitation Goals Personal Goals: Initial Assessment: Quit smoking (participate in smoking cessation, Improve energy level, Participate in home exercise program, Get back to work, or to resume activities faster and Improve muscle strength and endurance Scale for measuring improvement of personal goals Diagnosis & Disease Process Outcomes/Goals: Pt IDs own risk factors & lifestyle modifications by Session 10, Verbalizes symptoms of angina & response by session 3., Pt independently manages and Other Additional Outcomes/Goals: Plan/Interventions: Assist Pt to ID & engage in lifestyle modification to reduce CVD risk, Instruct on individual risk factors, Review symptoms of angina & emergency actions, Review secondary diagnosis & identify educational needs. and Other see comment 30 day Reassessments:: Not Met 30 day Reassessments:: Not Met 30 day Reassessments:: Not Met 30 day Reassessments:: Not Met Final Reassessments:: Not Met Safety Referral to Physical Therapy: No Referral to [facility] Case Management: No Fall Risk Assessed:: Yes Assistive Devices:: None Exercise - Initial Assessment Visit Date of Eval: 12/24/23 (initial eval) Mets: Pre-: >3 METS for 30 minutes by discharge, >5 METS for 30 minutes by discharge, >7 METS for 30 minutes by discharge and Unable to meet goal due to: (see comment below) Physician Prescribed Exercise Modalities: Treadmill, Rower, Schwinn Airdyne AD-7, SciFit Stepper, SciFit Pro- II Ergometer and SciFit Lateral [place] Frequency: 2x/week for 18 weeks [36 sessions] and 3x/week for 12 weeks [36 sessions] Intensity: 60-80% of age predicted maximum heart rate reserve Duration: 30 - 45 minutes Current METSs:: 3 Target Heart Rate:: 99-124 EKG Type: NSR Outcomes & Goals Goals:: Verbalizes understanding of THR, RPE & goal METS by session 6, Documents in home exercise log/reports 30 min aerobic 5 day/wk by DC, Demonstrates accurate pulse taking by DC and Other additional outcome/goals: see below Intervention & Plan Exercise Program Goals: Instruct on personal THR & RPE, Instruct on MET level & personal MET goal, Show patient to take own pulse /validate performance until accurate, Instruct on home exercise and Other additional plan/int Physical Activity Home Exercise Physical Activity - Home Exercise: Safe Exercise, Warm-up, Self-monitoring, Cool-Down, Home Exercise > 30 min Daily and Sitting Time <3 hours/daily Outcomes & Goals Outcomes/Goals: Demonstrates correct Warm-up/exercise Cool-Down (S3) if = 2.5 METs, Verbalizes symptoms of exercise intolerance by Session 3 (S3), Demonstrate safe equipment use (S3) & follows exercise prescrition (6) and Other: See below Intervention & Plan Plan/Intervention: Instruct warm-up & cool-down if exercising at > 2 METs, Instruct on symptoms of exercise intolerance & actions to take, Instruct & monitor on saf, Assess intial functional capacity & safety risk and Other See below Nutrition - Initial Assessment Program Goals Nutrition Program Goals Patient has diagnosis of Hyperlipidemia (ICD E78)?: Yes Visit Date of Eval: 12/24/23 (initial eval ) Cholesterol/Lipids (Other Core Measures) Determine presence & major risk factors that modify LDL goal: Cigarette smoking, Hypertension or hypertensive medication, Low HDL cholesterol <40 mg/dL*, Family history of premature CHD in Male < 55 years: female <65 yearsFa and Age men > 45 years; women >/= 55 years Outcomes/Goals: Pt IDs own risk factors & lifestyle modifications by Session 10, Verbalizes symptoms of angina & response by session 3., Pt independently manages and Other Additional Outcomes/Goals: Intervention/Plan: Advocate for lipid panel cholesterol medication if applicable, Instruct on personal lipid levels & lipid goals/NCEP guidelines, Instruct on cholesterol and Other additional plan/int Referral to dietitian:: No Diabetes (Other Core Measures) Diabetes Type: Diagnosis Type II ICD-10 E11 Insulin dependent injection/pump?: No Non-Insulin Dependent?: Yes Do you monitor your blood sugar at home?: Yes Referral to Diabetic Clinic:: No Outcomes/Goals:: Able to state symptoms of, Able to state, Able to state and Other additional Intervention/Plan:: Instruct on, Refer to, Instruct on and Other Weight Mgt (Other Care) Height: 6 ft 1 in Weight:: 222 lb 8 oz BMI: 29.3 Diagnosis Overweight/Obesity BMI> 30% ICD-10 E66: No Diagnosis High BMI/Morbid Obesity BMI> 35% ICD-10 Z68: No Outcomes/Goals: Pt sets, maintains & shows weight loss goal & trend during rehab and Other additional outcomes/goals Intervention/Plan: Instruct on ideal BMI & set weight loss goal w/patient, Assist pt to ID & incorporate diet changes for weight loss by S9, Refer to Structured Weight Loss program as appropriate, Encourage goal of using 250- 300dcal per session for weight loss and Other additional plan/interventions Healthy Eating Habits Will attend diet classes:: Yes Outcomes/Goals:: Consume diet rich in vegs,fruits,whole grain/high fiber,fish,lean meat, Limit sat/trans fats,cholesterol & added salts & sugars and Other additional outcome/goals: Intervention/Plan:: Assess current eating habits and Other Additional plan/interventions Education Gave educational materials for:: Signs & symptoms of hypoglycemia, Signs & symptoms of hyperglycemia, Relate diabetes to coronary artery disease and Healthy eating Core - Initial Assessment Visit Date of Eval: 12/24/23 (initial eval ) Medication Compliance Preventative Medication(s):: Aspirin, Ticagrelor/P2Y12 inhibitor, Statin/lipid and Beta rachel H/O mental health issues: depression, anxiety, or addiction?: No Doesn?t believe in the benefits of treatment?: No Believes medications are unnecessary or harmful?: No Has a concern about medication side effects?: No Expresses concern over the cost of medications?: No Outcomes/Goals: Verbalizes medications,desired effect & common side effects @ DC, Pt self-reports following medication regimen, Keeps card in wallet w/medications listed by DC and Other additional outcome/goals: Interventions/plans: Instruct on medication effects & side effects, Review medication list w/patient every two weeks, Instruct importance of taking meds as ordered & assist problem solving and Other additional Tobacco Use Tobacco Use: Cigarettes Years Smokin (smokes .5-.75 packs a day) Do you use smokeless tobacco?: No Outcomes/Goals: Smoking cessation achieved or maintained by discharge, Identify aids/strategies for achieving smoking cessation by session 6 and Other additional outcome/goals Interventions/plan: Instruct on effects of smoking & provide smoking cessation resource, Assist pt to set quit date & provide encouragement, Assist pt to develop strategies to achieve/maintain quit date, Assist pt w/nicotine r eplacement & medication for cessation success and Other additional plan/interventions Hypertension Hypertension Diagnosis:: Hypertension ICD-10 I10 Resting Blood Pressure:: 140/100 [place] [employer] Hypertension Guidelines Outcomes/Goals: Able to verbalize/achieve optimal blood pressure <130/80, Incorporates diet changes & exercise for blood pressure control by DC and Other additional outcomes/goals Interventions/plan: Instruct on optimal blood pressure, hypertension & medications, Instruct on effects of sodium, alcohol, stress, exercise &hypertension and Other additional plan/interventions Tobacco Cessation Referral Smoking Cessation Referral:: No (declines) Individual Education/Counseling:: No Education Schedule Given:: Yes Psychosocial - Initial Assess VIsit Date of Eval: 12/24/23 (initial eval ) History of previous Mental disease:: No Target Goals Target Goals Outcomes/Goals: See list Psychosocial Outcomes/Goals:: ID's personal stressors & 2 strategies to manage stress by discharge and Other Additional outcome/goals: Intervention/Plan: See List Interventions/Plan:: Assess stressors,coping strategies & signs of derpression on admission, Instruct/assist pt to develop coping & personal stress Mgt strategies, Refer to Behavioral Health if appropriate, Refer to Physician if appropriate, Instruct patient to recognize signs & symptoms of depression, Instruct patient to recog and Other additional plan/intervention Patient Health Questionnaire PHQ-9 Screening Initial Assessment: 1. Little interest or pleasure in doing things: Not at all 2. Feeling down, depressed, or hopeless: Not at all 3. Trouble falling or staying asleep, or sleeping too much: Not at all 4. Feeling tired or having little energy: Nearly every day 5. Poor appetite or overeating: Not at all 6. Feeling bad about yourself -- or that you are a failure or have let yourself or your family down: Not at all 7. Trouble concentrating on things, such as reading the newspaper or sowmya lobito television: Several days 8. Moving or speaking so slowly that other people could have noticed. Or the opposite - being so fidgety or restless that you have been moving around a lot more than usual: Not at all How difficult have these problems made it for you to do your work, take care of things at home, or get along with other people?: Somewhat difficult Total Score: 4 JOHNNY-[id number] SV Test Statements CAD is a disease of the arteries in the heart: False Examples of risk factors for heart disease: True Angina is chest pain or discomfort: True The benefits of resistance training include: True Eating more meat and dairy products: I Don't Know Anti-platelet medications such as aspirin are important: True The only effective way to manage stress: False An exercise warm-up slowly increases heart rate: True Prepared, processed foods usually have high sodium: True Depression is common after a heart attack: True The statin medications lower cholesterol: True To control blood pressure, lower the amount of sodium: True If someone gets chest discomfort during walking: False Transfats are partially hydrogenated vegetable oils: True Sleep apnea that is not treated increases the risk: I Don't Know To control cholesterol, one should become a vegetarian: False Someone knows if he/she is exercising at the right level: True Diabetes cannot be prevented with exercise & health eating: False Stress is a large risk for heart attack: True A diet that can help lower blood pressure is rich in: True Total Score Total Correct Responses: 18 Self-Efficacy 6-Item Scale Initial Assessment: We would like to know how confident you are in doing certain activities. Please select your confidence level for: Fatigue Select Number: 5 Physical Discomfort or Pain Select Number: 5 Emotional Distress Select Number: 10 Other Symptoms or Health Problems Select Number: 5 Different Tasks and Activities Select Number: 5 Medication Select Number: 5 Total Score:: 5 Nutrition Survey Nutrition Survey Instructions Scoring Instructions Nutrition Survey Initial: Have you lost >10 lbs over the past 2 months without trying?: No Are you following a special diet at home for diabetes, low fat, or low salt?: No Are you interested in meeting with a dietitian for help understanding your diet?: No Do you eat less than 3 meals a day?: Yes Do you eat fatty meats (tillman, sausage, ribs, etc), fried foods, desserts, large amounts of salad dressings, margarine, butter, or cheese most days?: No Do you have food allergies? [Enter types in comment field]: No Do you eat in restaurants more than 3 times a week?: No Do you season food with salt, seasoning salt, or garlic salt?: Yes Do you used canned, boxed, frozen meals, or soups, seasoning packets?: Yes Total Score:: 3 Exercise - 30-day Assessment Physician Prescribed Exercise Modalities: Treadmill, Rower, Schwinn Airdyne AD-7, SciFit Stepper, SciFit Pro- II Ergometer and SciFit Lateral [place] Exercise - 60-day Assessment Physician Prescribed Exercise Modalities: Treadmill, Rower, Schwinn Airdyne AD-7, SciFit Stepper, SciFit Pro- II Ergometer and SciFit Lateral [place] Exercise - 90-day Assessment Physician Prescribed Exercise Modalities: Treadmill, Rower, Schwinn Airdyne AD-7, SciFit Stepper, SciFit Pro- II Ergometer and SciFit Lateral [place] [place] Exercise - Final/Discharge Physician Prescribed Exercise Modalities: Treadmill, Rower, Schwinn Airdyne AD-7, SciFit Stepper, SciFit Pro- II Ergometer and SciFit Lateral [address] [place] Frequency: 2x/week for 18 weeks [36 sessions] and 3x/week for 12 weeks [36 sessions] Intensity: 60-80% of age predicted maximum heart rate reserve Current METSs:: 3 Target Heart Rate:: 99-124 Nutrition - 30-Day Assessment Weight Mgt (Other Care) Height: 6 ft 1 in Weight:: 222 lb 8 oz BMI: 29.3 Nutrition - 60-Day Assessment Weight Mgt (Other Care) Height: 6 ft 1 in Weight:: 222 lb 8 oz BMI: 29.3 Core - 30-Day Assessment Tobacco Use Years Smokin (smokes .5-.75 packs a day) Core - Final Assessment Hypertension Resting Blood Pressure:: 140/100 [place] [employer] Hypertension Guidelines Core - 60-Day Assessment Hypertension Resting Blood Pressure:: 140/100 [place] [employer] Hypertension Guidelines Psychosocial - 30-Day Assess Target Goals Target Goals Psychosocial - 60-Day Assess Target Goals Target Goals Psychosocial - 90-Day Assess Target Goals Target Goals Psychosocial - Final Assessmen Target Goals Target Goals Nutrition - 90-Day Assessment Weight Mgt (Other Care) Height: 6 ft 1 in Weight:: 222 lb 8 oz BMI: 29.3 Nutrition - Final Assessment Program Goals Patient has diagnosis of Hyperlipidemia (ICD E78)?: Yes Weight Mgt (Other Care) Height: 6 ft 1 in Weight:: 222 lb 8 oz BMI: 29.3
[2023-12-24 08:31] VITALS: BMI 29.5
[2023-12-24 08:41] VITALS: BP 140/100; PULSE 65; O2SAT 96
[2023-12-24 09:16] VITALS: BP 140/100; BMI 29.3
== END | disposition home or self-care (01) ==
PROVIDERS: PCP Family Medicine; Referring Provider Internal Medicine Cardiovascular Disease; Visit Provider Internal Medicine Cardiovascular Disease
DX: I25.10 Atherosclerotic heart disease of native coronary artery without angina pectoris (principal); Z95.5 Presence of coronary angioplasty implant and graft; I25.2 Old myocardial infarction

== ENCOUNTER → 2023-12-29 | Outpatient (CLI) | payer MEDICARE, SELFPAY ==
[2020-01-31 15:30] VITALS: BMI 28.6
[2023-12-24 09:16] VITALS: BMI 29.3
--- NOTE | 2023-12-29 07:47 | ADUUE_ITS ---
Reason For Study: Decreased Pulse post heart cath RIGHT Rt Radial Artery Distal measures 0.22 x 0.24cm Rt Radial Artery appears Triphasic Rt Radial Artery PSV = 50.5cm/s Rt Ulnar Artery Distal measures 0.22 x 0.22cm Rt Ulnar Artery appears Triphasic Rt Ulnar Artery PSV = 57.5cm/s Rt Cephalic V appears patent and compressible Rt Radial V appears patent and compressible No pseudoaneurysm visualized. VL/US Art Duplex Unilat UP Extrem Interpretation Summary Patent right upper extremity arteries with normal waveforms and velocities. No pseudoaneurysm or fistula identified Ordering Physician: Janett Read Referring Physician: Brennan Ty Performed By: Rich Rojas RVT
--- NOTE | 2023-12-29 07:47 | CDU_ITS ---
Reason For Study: Lightheadedness Rt. Velocities/BP Lt. Velocities/BP Prox CCA 64.5/14.7 cm/sec. Prox CCA 78.0/19.5 cm/sec. Mid CCA 63.8/15.4 cm/sec. Mid CCA 69.5/18.5 cm/sec. Dist CCA 60.2/16.1 cm/sec. Dist CCA 62.0/24.2 cm/sec. Prox ICA 57.4/14.7 cm/sec. Prox ICA 65.8/23.2 cm/sec. Mid ICA 43.8/17.5 cm/sec. Mid ICA 72.1/30.3 cm/sec. Dist ICA 53.8/16.8 cm/sec. Dist ICA 77.6/30.3 cm/sec. Rt. ICA/CCA = 1.3. Lt. ICA/CCA = 1.1. Prox ECA 90.4/16.7 cm/sec. Prox ECA 93.0/17.1 cm/sec. Rt. Vert. 46.0/16.8 cm/sec. Lt. Vert. 31.0/9.7 cm/sec. Right Extracranial There is intimal thickening but no significant atherosclerotic plaque noted in the right common carotid artery. There is heterogeneous, irregular atherosclerotic plaque noted in the right internal carotid artery. There is intimal thickening but no significant atherosclerotic plaque noted in the right external carotid artery. Antegrade flow is noted in the right vertebral artery. Left Extracranial There is homogeneous, smooth atherosclerotic plaque noted in the left common carotid artery. There is heterogeneous, irregular atherosclerotic plaque noted in the left internal carotid artery. There is intimal thickening but no significant atherosclerotic plaque noted in the left external carotid artery. Antegrade flow is noted in the left vertebral artery. Procedure Carotid Duplex [id number]. This is a Carotid Duplex examination using B-mode, color flow and specral Doppler. The exam was diagnostic. Exam performed in department. VL/Carotid Duplex Ultrasound Interpretation Summary Mild (<50%) stenosis right extracranial internal carotid. Mild (<50%) stenosis left extracranial internal carotid. Patent and antegrade vertebrals bilaterally. Ordering Physician: Janett Read Referring Physician: Brennan Ty Performed By: Rich Rojas RVT
== END | disposition home or self-care (01) ==
PROVIDERS: PCP Family Medicine; Referring Provider Nurse Practitioner Gerontology; Visit Provider Nurse Practitioner Gerontology
DX: R09.89 Other specified symptoms and signs involving the circulatory and respiratory systems (principal); R42 Dizziness and giddiness
CPT/HCPCS: 93880; 93931

== ENCOUNTER 2023-12-31 15:21 | Outpatient (RCR) | payer MEDICARE, SELFPAY ==
[2023-12-24 09:16] VITALS: BMI 29.3
== END 2024-01-03 23:59 ==
LOC: CR 15:21
PROVIDERS: PCP Family Medicine; Referring Provider Internal Medicine Cardiovascular Disease; Visit Provider Internal Medicine Cardiovascular Disease
DX: I21.3 ST elevation (STEMI) myocardial infarction of unspecified site (principal); Z95.5 Presence of coronary angioplasty implant and graft; I25.10 Atherosclerotic heart disease of native coronary artery without angina pectoris
CPT/HCPCS: 93798

== ENCOUNTER 2024-01-28 14:15 | Outpatient (RCR) | payer MEDICARE, SELFPAY ==
[2023-12-24 09:16] VITALS: BMI 29.3
--- NOTE | 2024-01-23 08:50 | CR.ITP_ITS ---
Exercise - Initial Assessment Visit Session #:: 8 Physician Prescribed Exercise Modalities: Treadmill, Schwinn Airdyne AD-7 and SciFit Stepper Nutrition - Initial Assessment Weight Mgt (Other Care) Height: 6 ft 1 in Weight:: 215 lb BMI: 28.3 Core - Initial Assessment Tobacco Use Years Smokin Psychosocial - Initial Assess Target Goals Target Goals Referral to Behavioral Health PS - Interventions: Yes: Referral to Behavioral Health if PHQ-9 score >9:, Yes: Referral to [facility], Yes: Referral to Physician if PHQ-9 if score is 5-9: and Yes: Attend Stress Management Classes Patient Health Questionnaire PHQ-9 Screening 30-Day Re-eval Assessment: 1. Little interest or pleasure in doing things: Not at all 2. Feeling down, depressed, or hopeless: Not at all 3. Trouble falling or staying asleep, or sleeping too much: Not at all 4. Feeling tired or having little energy: Nearly every day 5. Poor appetite or overeating: Not at all 6. Feeling bad about yourself -- or that you are a failure or have let yourself or your family down: Not at all 7. Trouble concentrating on things, such as reading the newspaper or watching television: Several days 8. Moving or speaking so slowly that other people could have noticed. Or the opposite - being so fidgety or restless that you have been moving around a lot more than usual: Not at all 9. Thoughts that you would be better off , or of hurting yourself in some way: Not at all How difficult have these problems made it for you to do your work, take care of things at home, or get along with other people?: Somewhat difficult Total Score: 4 Self-Efficacy 6-Item Scale 30-Day Re-eval Assessment: We would like to know how confident you are in doing certain activities. Please select your confidence level for: Fatigue Select Number: 5 Physical Discomfort or Pain Select Number: 5 Emotional Distress Select Number: 10 Other Symptoms or Health Problems Select Number: 5 Different Tasks and Activities Select Number: 5 Medication Select Number: 5 Total Score:: 5 Nutrition Survey Nutrition Survey Instructions Scoring Instructions Exercise - 30-day Assessment Visit Date of Eval: 01/23/24 Session #:: 8 Physician Prescribed Exercise Modalities: Treadmill, Schwinn Airdyne AD-7 and SciFit Stepper Frequency: 3x/week for 12 weeks [36 sessions] Intensity: 60-80% of age predicted maximum heart rate reserve Duration: 30 - 45 minutes Current METSs:: 4.1 Target Heart Rate:: 99-124 Current RPE:: 11-13 Maximum Excercise HR:: 120 Resting Blood Pressure: 118/76 Maximum Exercise Blood Pressure: 134/74 EKG Type: NSR to ST with rare pac Outcomes & Goals Goals:: Verbalizes understanding of THR, RPE & goal METS by session 6, Documents in home exercise log/reports 30 min aerobic 5 day/wk by DC, Demonstrates accurate pulse taking by DC and Other additional outcome/goals: see below Intervention & Plan Exercise Program Goals: Instruct on personal THR & RPE, Instruct on MET level & personal MET goal, Show patient to take own pulse /validate performance until accurate, Instruct on home exercise and Other additional plan/int 30-day Reassessments 30 day Reassessments:: Progressing Reassessment Notes & Comments:: RPE explained and pt is able to demonstrate understanding Physical Activity Home Exercise Physical Activity - Home Exercise: Safe Exercise, Warm-up, Self-monitoring, Cool-Down, Home Exercise > 30 min Daily and Sitting Time <3 hours/daily Outcomes & Goals Outcomes/Goals: Demonstrates correct Warm-up/exercise Cool-Down (S3) if = 2.5 METs, Verbalizes symptoms of exercise intolerance by Session 3 (S3), Demonstrate safe equipment use (S3) & follows exercise prescrition (6) and Other: See below Intervention & Plan Plan/Intervention: Instruct warm-up & cool-down if exercising at > 2 METs, Instruct on symptoms of exercise intolerance & actions to take, Instruct & monitor on saf, Assess intial functional capacity & safety risk and Other See below 30-day Reassessments 30 day Reassessments:: Progressing Reassessment Notes & Comments:: proper warm up explained and pt is able to demonstrate understanding Exercise - 60-day Assessment Physician Prescribed Exercise Modalities: Treadmill, Schwinn Airdyne AD-7 and SciFit Stepper Exercise - 90-day Assessment Physician Prescribed Exercise Modalities: Treadmill, Schwinn Airdyne AD-7 and SciFit Stepper Exercise - Final/Discharge Physician Prescribed Exercise Modalities: Treadmill, Schwinn Airdyne AD-7 and SciFit Stepper Nutrition - 30-Day Assessment Program Goals Nutrition Program Goals Patient has diagnosis of Hyperlipidemia (ICD E78)?: Yes Visit Date of Eval: 01/23/24 Session #:: 8 Cholesterol/Lipids (Other Core Measures) Determine presence & major risk factors that modify LDL goal: Cigarette smoking, Hypertension or hypertensive medication, Low HDL cholesterol <40 mg/dL*, Family history of premature CHD in Male < 55 years: female <65 yearsFa and Age men > 45 years; women >/= 55 years Outcomes/Goals: Pt IDs own risk factors & lifestyle modifications by Session 10, Verbalizes symptoms of angina & response by session 3., Pt independently manages and Other Additional Outcomes/Goals: Intervention/Plan: Advocate for lipid panel cholesterol medication if applicable, Instruct on personal lipid levels & lipid goals/NCEP guidelines, Instruct on cholesterol and Other additional plan/int Referral to dietitian:: No 30-day Reassessments:: Progressing Reassessment Notes & Comments:: encouraging pt to meet with dietitian Diabetes (Other Core Measures) Diabetes Type: Diagnosis Type II ICD-10 E11 Insulin dependent injection/pump?: No Non-Insulin Dependent?: Yes Do you monitor your blood sugar at home?: Yes Referral to Diabetic Clinic:: No Outcomes/Goals:: Able to state symptoms of, Able to state, Able to state and Other additional Intervention/Plan:: Instruct on, Refer to, Instruct on and Other 30-day Reassessments:: Progressing Reassessment Notes & Comments:: encouraging pt to meet with dietitian Weight Mgt (Other Care) Height: 6 ft 1 in Weight:: 215 lb BMI: 28.3 Diagnosis Overweight/Obesity BMI> 30% ICD-10 E66: No Diagnosis High BMI/Morbid Obesity BMI> 35% ICD-10 Z68: No Outcomes/Goals: Pt sets, maintains & shows weight loss goal & trend during rehab and Other additional outcomes/goals Intervention/Plan: Instruct on ideal BMI & set weight loss goal w/patient, Assist pt to ID & incorporate diet changes for weight loss by S9, Refer to Structured Weight Loss program as appropriate, Encourage goal of using 250- 300dcal per session for weight loss and Other additional plan/interventions 30 day Reassessments:: Met Reassessment Notes & Comments:: pt is at a healthy weight Healthy Eating Habits Will attend diet classes:: Yes Outcomes/Goals:: Consume diet rich in vegs,fruits,whole grain/high fiber,fish,lean meat, Limit sat/trans fats,cholesterol & added salts & sugars and Other additional outcome/goals: Intervention/Plan:: Assess current eating habits and Other Additional plan/interventions 30-day Reassessments:: Progressing Reassessment Notes & Comments:: pt is scheduled to attend nutrition class. Education Gave educational materials for:: Signs & symptoms of hypoglycemia, Signs & symptoms of hyperglycemia, Relate diabetes to coronary artery disease and Healthy eating Nutrition - 60-Day Assessment Weight Mgt (Other Care) Height: 6 ft 1 in Weight:: 215 lb BMI: 28.3 Core - 30-Day Assessment Visit Date of Eval: 01/23/24 Session #:: 8 Medication Compliance Preventative Medication(s):: Aspirin, Ticagrelor/P2Y12 inhibitor, Statin/lipid and Beta rachel H/O mental health issues: depression, anxiety, or addiction?: No Doesn?t believe in the benefits of treatment?: No Believes medications are unnecessary or harmful?: No Has a concern about medication side effects?: No Expresses concern over the cost of medications?: No Outcomes/Goals: Verbalizes medications,desired effect & common side effects @ DC, Pt self-reports following medication regimen, Keeps card in wallet w/medications listed by DC and Other additional outcome/goals: Interventions/plans: Instruct on medication effects & side effects, Review medication list w/patient every two weeks, Instruct importance of taking meds as ordered & assist problem solving and Other additional 30-day Reassessments:: Met Reassessment Notes & Comments:: pt is taking meds as prescibed Tobacco Use Tobacco Use: Cigarettes (pt smokes .5-.75 packs a day) Years Smokin Do you use smokeless tobacco?: No Outcomes/Goals: Smoking cessation achieved or maintained by discharge, Identify aids/strategies for achieving smoking cessation by session 6 and Other additional outcome/goals Interventions/plan: Instruct on effects of smoking & provide smoking cessation resource, Assist pt to set quit date & provide encouragement, Assist pt to develop strategies to achieve/maintain quit date, Assist pt w/nicotine replacement & medication for cessation success and Other additional plan/interventions 30-day Reassessments:: Progressing Reassessment Notes & Comments:: pt is attempting to stop smoking. encouraging pt to attend smoking cessation counseling. Pt will attend smoking class. Hypertension Hypertension Diagnosis:: Hypertension ICD-10 I10 Resting Blood Pressure:: 118/76 [place] [employer] Hypertension Guidelines Peak Exercise Blood Pressure:: 134/74 Outcomes/Goals: Able to verbalize/achieve optimal blood pressure <130/80, Incorporates diet changes & exercise for blood pressure control by DC and Other additional outcomes/goals Interventions/plan: Instruct on optimal blood pressure, hypertension & medications, Instruct on effects of sodium, alcohol, stress, exercise &hypertension and Other additional plan/interventions 30 day Reassessments:: Met Reassessment Notes & Comments:: bp's are within AHA guidelines. will notify pt's physician if this changes Tobacco Cessation Referral Smoking Cessation Referral:: No Individual Education/Counseling:: No Education Schedule Given:: Yes Psychosocial - 30-Day Assess VIsit Date of Eval: 01/23/24 Session #:: 8 History of previous Mental disease:: No Target Goals Target Goals Psychosocial Test Tool Used:: [employer] QOL Cardiac and PHQ-9 Questionnaire phq-9 Severity Referral to Behavioral Health PS - Interventions: Yes: Referral to Behavioral Health if PHQ-9 score >9:, Yes: Referral to [facility], Yes: Referral to Physician if PHQ-9 if score is 5-9: and Yes: Attend Stress Management Classes Outcomes/Goals: See list Psychosocial Outcomes/Goals:: ID's personal stressors & 2 strategies to manage stress by discharge and Other Additional outcome/goals: Intervention/Plan: See List Interventions/Plan:: Assess stressors,coping strategies & signs of derpression on admission, Instruct/assist pt to develop coping & personal stress Mgt strategies, Refer to Behavioral Health if appropriate, Refer to Physician if appropriate, Instruct patient to recognize signs & symptoms of depression, Instruct patient to recog and Other additional plan/intervention 30-day Reassessments: 30 day Reassessments:: Met Reassessment Notes & Comments:: pt declines any psychosocial issues Psychosocial - 60-Day Assess Target Goals Target Goals Referral to Behavioral Health PS - Interventions: Yes: Referral to Behavioral Health if PHQ-9 score >9:, Yes: Referral to [facility], Yes: Referral to Physician if PHQ-9 if score is 5-9: and Yes: Attend Stress Management Classes Outcomes/Goals: See list Psychosocial Outcomes/Goals:: ID's personal stressors & 2 strategies to manage stress by discharge and Other Additional outcome/goals: Psychosocial - 90-Day Assess Target Goals Target Goals Referral to Behavioral Health PS - Interventions: Yes: Referral to Behavioral Health if PHQ-9 score >9:, Yes: Referral to [facility], Yes: Referral to Physician if PHQ-9 if score is 5-9: and Yes: Attend Stress Management Classes Psychosocial - Final Assessmen Target Goals Target Goals Referral to Behavioral Health PS - Interventions: Yes: Referral to Behavioral Health if PHQ-9 score >9:, Yes: Referral to [facility], Yes: Referral to Physician if PHQ-9 if score is 5-9: and Yes: Attend Stress Management Classes Nutrition - 90-Day Assessment Weight Mgt (Other Care) Height: 6 ft 1 in Weight:: 215 lb BMI: 28.3 Nutrition - Final Assessment Weight Mgt (Other Care) Height: 6 ft 1 in Weight:: 215 lb BMI: 28.3
[2024-01-23 09:04] VITALS: BP 118/76; BMI 28.3
== END 2024-02-02 23:59 ==
LOC: CR 14:15
PROVIDERS: PCP Family Medicine; Referring Provider Internal Medicine Cardiovascular Disease; Visit Provider Internal Medicine Cardiovascular Disease
DX: I21.3 ST elevation (STEMI) myocardial infarction of unspecified site (principal); Z95.5 Presence of coronary angioplasty implant and graft; I25.10 Atherosclerotic heart disease of native coronary artery without angina pectoris
CPT/HCPCS: 93798

== ENCOUNTER 2024-02-11 14:59 | Outpatient (CLI) | payer MEDICARE, SELFPAY ==
[2023-12-24 09:16] VITALS: BMI 29.3
[2024-01-23 09:04] VITALS: BMI 28.3
--- NOTE | 2024-02-11 15:03 | CT_ITS ---
EXAM: CT CHEST, LUNG CANCER SCREENING WITHOUT INTRAVENOUS CONTRAST CLINICAL INDICATION: screen TECHNIQUE: Helically acquired images were obtained of the chest without intravenous contrast using low dose (LDCT) lung cancer screening protocol. This CT exam was performed using one or more of the following dose reduction techniques: automated exposure control, adjustment of the mA and/or kV according to patient size, and/or use of iterative reconstruction technique. COMPARISON: CTA chest 12/06/2023 FINDINGS: LUNGS AND PLEURAL SPACES: Normal. No mass. No consolidation or edema. No pleural effusion or thickening. No pneumothorax. HEART: Normal. No pericardial effusion. Normal heart size. Coronary artery calcification and stents noted. MEDIASTINUM: Normal. No mediastinal or hilar adenopathy. Esophagus is unremarkable. No hiatal hernia. THYROID: Normal. No thyroid nodules or calcification. BONES/JOINTS: No suspicious lytic or blastic abnormality. VASCULATURE: No aortic aneurysm. LYMPH NODES: Normal. No enlarged lymph nodes. CT/Low Dose CT Lung Screening IMPRESSION: No acute lung mass or nodule. Lung-RADS score: 1 - Negative. Recommend continued annual screening with a low-dose CT (LDCT) in 12 months. Electronically Signed: Jerald Friedman MD at 15:34 EDT ,
== END 2024-02-11 23:59 | disposition home or self-care (01) ==
LOC: CT 15:01
PROVIDERS: PCP Family Medicine; Referring Provider Nurse Practitioner Family; Visit Provider Nurse Practitioner Family
DX: Z12.2 Encounter for screening for malignant neoplasm of respiratory organs (principal); F17.210 Nicotine dependence, cigarettes, uncomplicated
CPT/HCPCS: 71271

== ENCOUNTER 2024-03-03 14:15 | Outpatient (RCR) | payer MEDICARE, SELFPAY ==
[2024-01-23 09:04] VITALS: BMI 28.3
[2024-02-03 00:16] VITALS: BP 118/76
--- NOTE | 2024-02-23 07:09 | CR.ITP_ITS ---
Exercise - Initial Assessment Physician Prescribed Exercise Modalities: Treadmill, Schwinn Airdyne AD-7 and SciFit Stepper Nutrition - Initial Assessment Weight Mgt (Other Care) Height: 6 ft 1 in Weight:: 214 lb 8 oz BMI: 28.3 Core - Initial Assessment Hypertension Resting Blood Pressure:: 152/82 [place] [employer] Hypertension Guidelines Psychosocial - Initial Assess Target Goals Target Goals Referral to Behavioral Health PS - Interventions: Yes: Attend Stress Management Classes Patient Health Questionnaire PHQ-9 Screening 60-Day Re-eval Assessment: 1. Little interest or pleasure in doing things: Not at all 2. Feeling down, depressed, or hopeless: Not at all 3. Trouble falling or staying asleep, or sleeping too much: Not at all 4. Feeling tired or having little energy: Nearly every day 5. Poor appetite or overeating: Not at all 6. Feeling bad about yourself -- or that you are a failure or have let yourself or your family down: Not at all 7. Trouble concentrating on things, such as reading the newspaper or watching television: Several days 8. Moving or speaking so slowly that other people could have noticed. Or the opposite - being so fidgety or restless that you have been moving around a lot more than usual: Not at all 9. Thoughts that you would be better off , or of hurting yourself in some way: Not at all How difficult have these problems made it for you to do your work, take care of things at home, or get along with other people?: Somewhat difficult Total Score: 4 Self-Efficacy 6-Item Scale 60-Day Re-eval Assessment: We would like to know how confident you are in doing certain activities. Please select your confidence level for: Fatigue Select Number: 5 Physical Discomfort or Pain Select Number: 5 Emotional Distress Select Number: 10 Other Symptoms or Health Problems Select Number: 5 Different Tasks and Activities Select Number: 5 Medication Select Number: 5 Total Score:: 5 Nutrition Survey Nutrition Survey Instructions Scoring Instructions Exercise - 30-day Assessment Physician Prescribed Exercise Modalities: Treadmill, Schwinn Airdyne AD-7 and SciFit Stepper Exercise - 60-day Assessment Visit Date of Eval: 02/23/24 Session #:: 10 Comments:: Tam has not attended cardiac rehab since02/11/24 Physician Prescribed Exercise Modalities: Treadmill, Schwinn Airdyne AD-7 and SciFit Stepper Frequency: 3x/week for 12 weeks [36 sessions] Intensity: 60-80% of age predicted maximum heart rate reserve Duration: 30 - 45 minutes Current METSs:: 4.1 Target Heart Rate:: 99-124 Current RPE:: 12-13 Maximum Excercise HR:: 119 Resting Blood Pressure: 132/90 Maximum Exercise Blood Pressure: 152/82 EKG Type: NSR to ST with rare pac, pvc Outcomes & Goals Goals:: Verbalizes understanding of THR, RPE & goal METS by session 6, Documents in home exercise log/reports 30 min aerobic 5 day/wk by DC, Demonstrates accurate pulse taking by DC and Other additional outcome/goals: see below Intervention & Plan Exercise Program Goals: Instruct on personal THR & RPE, Instruct on MET level & personal MET goal, Show patient to take own pulse /validate performance until accurate, Instruct on home exercise and Other additional plan/int 30-day Reassessments 30 day Reassessments:: Progressing Reassessment Notes & Comments:: THR discussed pt demonstrates understanding Physical Activity Home Exercise Physical Activity - Home Exercise: Safe Exercise, Warm-up, Self-monitoring, Cool-Down, Home Exercise > 30 min Daily and Sitting Time <3 hours/daily Outcomes & Goals Outcomes/Goals: Demonstrates correct Warm-up/exercise Cool-Down (S3) if = 2.5 METs, Verbalizes symptoms of exercise intolerance by Session 3 (S3), Demonstrate safe equipment use (S3) & follows exercise prescrition (6) and Other: See below Intervention & Plan Plan/Intervention: Instruct warm-up & cool-down if exercising at > 2 METs, Instruct on symptoms of exercise intolerance & actions to take, Instruct & monitor on saf, Assess intial functional capacity & safety risk and Other See below 30-day Reassessments 30 day Reassessments:: Progressing Reassessment Notes & Comments:: cool down explained and demonstrated. Pt able to return demonstration. Exercise - 90-day Assessment Physician Prescribed Exercise Modalities: Treadmill, Schwinn Airdyne AD-7 and SciFit Stepper Exercise - Final/Discharge Physician Prescribed Exercise Modalities: Treadmill, Schwinn Airdyne AD-7 and SciFit Stepper Nutrition - 30-Day Assessment Weight Mgt (Other Care) Height: 6 ft 1 in Weight:: 214 lb 8 oz BMI: 28.3 Nutrition - 60-Day Assessment Program Goals Nutrition Program Goals Patient has diagnosis of Hyperlipidemia (ICD E78)?: Yes Visit Date of Eval: 02/23/24 Session #:: 10 Cholesterol/Lipids (Other Core Measures) Determine presence & major risk factors that modify LDL goal: Cigarette smoking, Hypertension or hypertensive medication, Low HDL cholesterol <40 mg/dL*, Family history of premature CHD in Male < 55 years: female <65 yearsFa and Age men > 45 years; women >/= 55 years Outcomes/Goals: Pt IDs own risk factors & lifestyle modifications by Session 10, Verbalizes symptoms of angina & response by session 3., Pt independently manages and Other Additional Outcomes/Goals: Intervention/Plan: Advocate for lipid panel cholesterol medication if applicable, Instruct on personal lipid levels & lipid goals/NCEP guidelines, Instruct on cholesterol and Other additional plan/int 30-day Reassessments:: Progressing Reassessment Notes & Comments:: risk factors explained. pt demonstrates understanding. Pt is attempting to stop smoking Diabetes (Other Core Measures) Diabetes Type: Diagnosis Type II ICD-10 E11 Insulin dependent injection/pump?: No Non-Insulin Dependent?: Yes Do you monitor your blood sugar at home?: Yes Referral to Diabetic Clinic:: No 30-day Reassessments:: Progressing Reassessment Notes & Comments:: pt encouraged to monitor bs. pt encouraged to meet with dietitian Weight Mgt (Other Care) Height: 6 ft 1 in Weight:: 214 lb 8 oz BMI: 28.3 Diagnosis Overweight/Obesity BMI> 30% ICD-10 E66: No Diagnosis High BMI/Morbid Obesity BMI> 35% ICD-10 Z68: No Outcomes/Goals: Pt sets, maintains & shows weight loss goal & trend during rehab and Other additional outcomes/goals Intervention/Plan: Instruct on ideal BMI & set weight loss goal w/patient, Assist pt to ID & incorporate diet changes for weight loss by S9, Refer to Structured Weight Loss program as appropriate, Encourage goal of using 250- 300dcal per session for weight loss and Other additional plan/interventions 30 day Reassessments:: Met Reassessment Notes & Comments:: pt is at a healthy weight Healthy Eating Habits Will attend diet classes:: Yes Outcomes/Goals:: Consume diet rich in vegs,fruits,whole grain/high fiber,fish,lean meat, Limit sat/trans fats,cholesterol & added salts & sugars and Other additional outcome/goals: Intervention/Plan:: Assess current eating habits and Other Additional plan/interventions 30-day Reassessments:: Met Reassessment Notes & Comments:: pt has attended nutrition class Core - Final Assessment Tobacco Use Years Smokin Hypertension Resting Blood Pressure:: 152/82 [place] [employer] Hypertension Guidelines Core - 60-Day Assessment Visit Date of Eval: 02/23/24 Session #:: 10 Medication Compliance Preventative Medication(s):: Aspirin, Ticagrelor/P2Y12 inhibitor, Statin/lipid and Beta rachel H/O mental health issues: depression, anxiety, or addiction?: No Doesn?t believe in the benefits of treatment?: No Believes medications are unnecessary or harmful?: No Has a concern about medication side effects?: No Expresses concern over the cost of medications?: No Outcomes/Goals: Verbalizes medications,desired effect & common side effects @ DC, Pt self-reports following medication regimen, Keeps card in wallet w/medications listed by DC and Other additional outcome/goals: Interventions/plans: Instruct on medication effects & side effects, Review medication list w/patient every two weeks, Instruct importance of taking meds as ordered & assist problem solving and Other additional 30-day Reassessments:: Met Reassessment Notes & Comments:: pt taking meds as prescribed Tobacco Use Tobacco Use: Cigarettes (.5-.75 packs a day) Years Smokin Do you use smokeless tobacco?: No Outcomes/Goals: Smoking cessation achieved or maintained by discharge, Identify aids/strategies for achieving smoking cessation by session 6 and Other additional outcome/goals Interventions/plan: Instruct on effects of smoking & provide smoking cessation resource, Assist pt to set quit date & provide encouragement, Assist pt to develop strategies to achieve/maintain quit date, Assist pt w/nicotine replacement & medication for cessation success and Other additional plan/interventions 30-day Reassessments:: Progressing Reassessment Notes & Comments:: pt is attempting to stop smoking on his own Hypertension Hypertension Diagnosis:: Hypertension ICD-10 I10 Resting Blood Pressure:: 132/90 Resting Blood Pressure:: 152/82 [place] [employer] Hypertension Guidelines Outcomes/Goals: Able to verbalize/achieve optimal blood pressure <130/80, Incorporates diet changes & exercise for blood pressure control by DC and Other additional outcomes/goals Interventions/plan: Instruct on optimal blood pressure, hypertension & medications, Instruct on effects of sodium, alcohol, stress, exercise &hypertension and Other additional plan/interventions 30 day Reassessments:: Progressing Reassessment Notes & Comments:: elevated blood pressures. Will send report to pts physician if continues Tobacco Cessation Referral Smoking Cessation Referral:: No (declines) Individual Education/Counseling:: No Education Schedule Given:: Yes Psychosocial - 30-Day Assess Target Goals Target Goals Referral to Behavioral Health PS - Interventions: Yes: Attend Stress Management Classes Outcomes/Goals: See list Psychosocial Outcomes/Goals:: ID's personal stressors & 2 strategies to manage s tress by discharge and Other Additional outcome/goals: Psychosocial - 60-Day Assess VIsit Date of Eval: 02/23/24 Session #:: 10 History of previous Mental disease:: No Target Goals Target Goals Psychosocial Test Tool Used:: [email or web address] QOL Cardiac and PHQ-9 Questionnaire phq-9 Severity Referral to Behavioral Health PS - Interventions: Yes: Attend Stress Management Classes Outcomes/Goals: See list Psychosocial Outcomes/Goals:: ID's personal stressors & 2 strategies to manage stress by discharge and Other Additional outcome/goals: Intervention/Plan: See List Interventions/Plan:: Assess stressors,coping strategies & signs of derpression on admission, Instruct/assist pt to develop coping & personal stress Mgt strategies, Refer to Behavioral Health if appropriate, Refer to Physician if appropriate, Instruct patient to recognize signs & symptoms of depression, Instruct patient to recog and Other additional plan/intervention 30-day Reassessments: 30 day Reassessments:: Met Reassessment Notes & Comments:: pt denies psychosocial issues at this time Psychosocial - 90-Day Assess Target Goals Target Goals Referral to Behavioral Health PS - Interventions: Yes: Attend Stress Management Classes Psychosocial - Final Assessmen Target Goals Target Goals Referral to Behavioral Health PS - Interventions: Yes: Attend Stress Management Classes Nutrition - 90-Day Assessment Weight Mgt (Other Care) Height: 6 ft 1 in Weight:: 214 lb 8 oz BMI: 28.3 Nutrition - Final Assessment Weight Mgt (Other Care) Height: 6 ft 1 in Weight:: 214 lb 8 oz BMI: 28.3
[2024-02-23 07:22] VITALS: BP 132/90; BP 152/82; BMI 28.3
== END 2024-03-04 23:59 ==
LOC: CR 14:15
PROVIDERS: PCP Family Medicine; Referring Provider Internal Medicine Cardiovascular Disease; Visit Provider Internal Medicine Cardiovascular Disease
DX: I25.10 Atherosclerotic heart disease of native coronary artery without angina pectoris (principal); I21.3 ST elevation (STEMI) myocardial infarction of unspecified site; Z95.5 Presence of coronary angioplasty implant and graft
CPT/HCPCS: 93798

== ENCOUNTER 2024-03-12 14:15 | Outpatient (RCR) | payer MEDICARE, SELFPAY ==
[2024-02-23 07:22] VITALS: BMI 28.3
[2024-03-05 00:12] VITALS: BP 118/76; BP 132/90; BP 152/82
--- NOTE | 2024-03-25 08:06 | CR.ITP_ITS ---
Exercise - Initial Assessment Physician Prescribed Exercise Modalities: Treadmill, Schwinn Airdyne AD-7 and SciFit Stepper Nutrition - Initial Assessment Weight Mgt (Other Care) Height: 6 ft 1 in Weight:: 220 lb BMI: 29.0 Psychosocial - Initial Assess Target Goals Target Goals Referral to Behavioral Health PS - Interventions: Yes: Attend Stress Management Classes Patient Health Questionnaire PHQ-9 Screening 90-Day Re-eval Assessment: 1. Little interest or pleasure in doing things: Not at all 2. Feeling down, depressed, or hopeless: Not at all 3. Trouble falling or staying asleep, or sleeping too much: Not at all 4. Feeling tired or having little energy: Nearly every day 5. Poor appetite or overeating: Not at all 6. Feeling bad about yourself -- or that you are a failure or have let yourself or your family down: Not at all 7. Trouble concentrating on things, such as reading the newspaper or watching television: Not at all 8. Moving or speaking so slowly that other people could have noticed. Or the opposite - being so fidgety or restless that you have been moving around a lot more than usual: Not at all 9. Thoughts that you would be better off , or of hurting yourself in some way: Not at all How difficult have these problems made it for you to do your work, take care of things at home, or get along with other people?: Somewhat difficult Total Score: 3 Self-Efficacy 6-Item Scale 90-Day Re-eval Assessment: We would like to know how confident you are in doing certain activities. Please select your confidence level for: Fatigue Select Number: 5 Physical Discomfort or Pain Select Number: 5 Emotional Distress Select Number: 10 Other Symptoms or Health Problems Select Number: 5 Different Tasks and Activities Select Number: 5 Medication Select Number: 5 Total Score:: 5 Nutrition Survey Nutrition Survey Instructions Scoring Instructions Exercise - 30-day Assessment Physician Prescribed Exercise Modalities: Treadmill, Schwinn Airdyne AD-7 and SciFit Stepper Exercise - 60-day Assessment Physician Prescribed Exercise Modalities: Treadmill, Schwinn Airdyne AD-7 and SciFit Stepper Exercise - 90-day Assessment Visit Date of Eval: 03/25/24 Session #:: 13 Comments:: Pt has not attended CR since 03/12/24 Physician Prescribed Exercise Modalities: Treadmill, Schwinn Airdyne AD-7 and SciFit Stepper Frequency: 3x/week for 12 weeks [36 sessions] Intensity: 60-80% of age predicted maximum heart rate reserve Duration: 30 - 45 minutes Current METSs:: 4.1 Target Heart Rate:: 99-124 Current RPE:: 12 Maximum Excercise HR:: 106 Resting Blood Pressure: 140/70 Maximum Exercise Blood Pressure: 142/80 EKG Type: NSR to ST with a rare PAC,PVC Outcomes & Goals Goals:: Verbalizes understanding of THR, RPE & goal METS by session 6, Documents in home exercise log/reports 30 min aerobic 5 day/wk by DC, Demonstrates accurate pulse taking by DC and Other additional outcome/goals: see below Intervention & Plan Exercise Program Goals: Instruct on personal THR & RPE, Instruct on MET level & personal MET goal, Show patient to take own pulse /validate performance until accurate, Instruct on home exercise and Other additional plan/int 30-day Reassessments 30 day Reassessments:: Progressing Reassessment Notes & Comments:: THR explained Physical Activity Home Exercise Physical Activity - Home Exercise: Safe Exercise, Warm-up, Self-monitoring, Cool-Down, Home Exercise > 30 min Daily and Sitting Time <3 hours/daily Outcomes & Goals Outcomes/Goals: Demonstrates correct Warm-up/exercise Cool-Down (S3) if = 2.5 METs, Verbalizes symptoms of exercise intolerance by Session 3 (S3), Demonstrate safe equipment use (S3) & follows exercise prescrition (6) and Other: See below Intervention & Plan Plan/Intervention: Instruct warm-up & cool-down if exercising at > 2 METs, Instruct on symptoms of exercise intolerance & actions to take, Instruct & monitor on saf, Assess intial functional capacity & safety risk and Other See below 30-day Reassessments 30 day Reassessments:: Progressing Reassessment Notes & Comments:: cool down encouraged Exercise - Final/Discharge Physician Prescribed Exercise Modalities: Treadmill, Schwinn Airdyne AD-7 and SciFit Stepper Nutrition - 30-Day Assessment Weight Mgt (Other Care) Height: 6 ft 1 in Weight:: 220 lb BMI: 29.0 Nutrition - 60-Day Assessment Weight Mgt (Other Care) Height: 6 ft 1 in Weight:: 220 lb BMI: 29.0 Core - 30-Day Assessment Hypertension [place] [employer] Hypertension Guidelines Reassessment Notes & Comments:: Elevated BP's noted. Will send report to physician if necessary. Pt has been noncompliant with his attendance. Core - Final Assessment Hypertension [place] [employer] Hypertension Guidelines Reassessment Notes & Comments:: Elevated BP's noted. Will send report to ph ysician if necessary. Pt has been noncompliant with his attendance. Core - 90 Day Assessment Visit Date of Eval: 03/25/24 Session #:: 13 Medication Compliance Preventative Medication(s):: Aspirin, Ticagrelor/P2Y12 inhibitor, Statin/lipid and Beta rachel H/O mental health issues: depression, anxiety, or addiction?: No Doesn?t believe in the benefits of treatment?: No Believes medications are unnecessary or harmful?: No Has a concern about medication side effects?: No Expresses concern over the cost of medications?: No Outcomes/Goals: Verbalizes medications,desired effect & common side effects @ DC, Pt self-reports following medication regimen, Keeps card in wallet w/medications listed by DC and Other additional outcome/goals: Interventions/plans: Instruct on medication effects & side effects, Review medication list w/patient every two weeks, Instruct importance of taking meds as ordered & assist problem solving and Other additional 30-day Reassessments:: Progressing Reassessment Notes & Comments:: 03/12/ abdifatah added Tobacco Use Tobacco Use: Cigarettes (.5-.75 packs a day) Outcomes/Goals: Smoking cessation achieved or maintained by discharge, Identify aids/strategies for achieving smoking cessation by session 6 and Other additional outcome/goals Interventions/plan: Instruct on effects of smoking & provide smoking cessation resource, Assist pt to set quit date & provide encouragement, Assist pt to develop strategies to achieve/maintain quit date, Assist pt w/nicotine replacement & medication for cessation success and Other additional plan/interventions 30-day Reassessments:: Progressing Reassessment Notes & Comments:: Pt states he is trying to quit Hypertension Hypertension Diagnosis:: Hypertension ICD-10 I10 Resting Blood Pressure:: 140/70 [place] [employer] Hypertension Guidelines Peak Exercise Blood Pressure:: 142/80 Outcomes/Goals: Able to verbalize/achieve optimal blood pressure <130/80, Incor porates diet changes & exercise for blood pressure control by DC and Other additional outcomes/goals Interventions/plan: Instruct on optimal blood pressure, hypertension & medi cations, Instruct on effects of sodium, alcohol, stress, exercise &hypertension and Other additional plan/interventions 30 day Reassessments:: Progressing Reassessment Notes & Comments:: Elevated BP's noted. Will send report to physician if necessary. Pt has been noncompliant with his attendance. Tobacco Cessation Referral Smoking Cessation Referral:: No (declines) Individual Education/Counseling:: No Education Schedule Given:: Yes Psychosocial - 30-Day Assess Target Goals Target Goals Referral to Behavioral Health PS - Interventions: Yes: Attend Stress Management Classes Psychosocial - 60-Day Assess Target Goals Target Goals Referral to Behavioral Health PS - Interventions: Yes: Attend Stress Management Classes Psychosocial - 90-Day Assess VIsit Date of Eval: 03/25/24 Session #:: 13 History of previous Mental disease:: No Target Goals Target Goals Psychosocial Test Tool Used:: [employer] QOL Cardiac and PHQ-9 Questionnaire phq-9 Severity Referral to Behavioral Health PS - Interventions: Yes: Attend Stress Management Classes Outcomes/Goals: See list Psychosocial Outcomes/Goals:: ID's personal stressors & 2 strategies to manage stress by discharge and Other Additional outcome/goals: Intervention/Plan: See List Interventions/Plan:: Assess stressors,coping strategies & signs of derpression on admission, Instruct/assist pt to develop coping & personal stress Mgt strategies, Refer to Behavioral Health if appropriate, Refer to Physician if appropriate, Instruct patient to recognize signs & symptoms of depression, Instruct patient to recog and Other additional plan/intervention 30-day Reassessments: 30 day Reassessments:: Met Reassessment Notes & Comments:: pt denies psychosocial issues at this time Psychosocial - Final Assessmen Target Goals Target Goals Referral to Behavioral Health PS - Interventions: Yes: Attend Stress Management Classes Nutrition - 90-Day Assessment Program Goals Nutrition Program Goals Patient has diagnosis of Hyperlipidemia (ICD E78)?: Yes Visit Date of Eval: 03/25/24 Session #:: 13 Cholesterol/Lipids (Other Core Measures) Determine presence & major risk factors that modify LDL goal: Cigarette smoking, Hypertension or hypertensive medication, Low HDL cholesterol <40 mg/dL*, Family history of premature CHD in Male < 55 years: female <65 yearsFa and Age men > 45 years; women >/= 55 years Outcomes/Goals: Pt IDs own risk factors & lifestyle modifications by Session 10, Verbalizes symptoms of angina & response by session 3., Pt independently manages and Other Additional Outcomes/Goals: Intervention/Plan: Advocate for lipid panel cholesterol medication if applicable, Instruct on personal lipid levels & lipid goals/NCEP guidelines, Instruct on cholesterol and Other additional plan/int 30-day Reassessments:: Progressing Reassessment Notes & Comments:: risk factors reviewed Diabetes (Other Core Measures) Diabetes Type: Diagnosis Type II ICD-10 E11 Insulin dependent injection/pump?: No Non-Insulin Dependent?: Yes Do you monitor your blood sugar at home?: Yes Referral to Diabetic Clinic:: No 30-day Reassessments:: Progressing Weight Mgt (Other Care) Height: 6 ft 1 in Weight:: 220 lb BMI: 29.0 Diagnosis Overweight/Obesity BMI> 30% ICD-10 E66: No Diagnosis High BMI/Morbid Obesity BMI> 35% ICD-10 Z68: No Outcomes/Goals: Pt sets, maintains & shows weight loss goal & trend during rehab and Other additional outcomes/goals Intervention/Plan: Instruct on ideal BMI & set weight loss goal w/patient, Assist pt to ID & incorporate diet changes for weight loss by S9, Refer to Structured Weight Loss program as appropriate, Encourage goal of using 250- 300dcal per session for weight loss and Other additional plan/interventions 30 day Reassessments:: Met Reassessment Notes & Comments:: pt is at a healthy weight Healthy Eating Habits Will attend diet classes:: Yes Outcomes/Goals:: Consume diet rich in vegs,fruits,whole grain/high fiber,fish,lean meat, Limit sat/trans fats,cholesterol & added salts & sugars and Other additional outcome/goals: Intervention/Plan:: Assess current eating habits and Other Additional plan/interventions 30-day Reassessments:: Progressing Reassessment Notes & Comments:: pt is to attend nutrition class Education Gave educational materials for:: Signs & symptoms of hypoglycemia, Signs & sym ptoms of hyperglycemia, Relate diabetes to coronary artery disease and Healthy eating Nutrition - Final Assessment Weight Mgt (Other Care) Height: 6 ft 1 in Weight:: 220 lb BMI: 29.0
[2024-03-25 08:18] VITALS: BP 140/70; BMI 29.0
== END 2024-04-03 23:59 ==
LOC: CR 14:15
PROVIDERS: PCP Family Medicine; Referring Provider Internal Medicine Cardiovascular Disease; Visit Provider Internal Medicine Cardiovascular Disease
DX: I21.3 ST elevation (STEMI) myocardial infarction of unspecified site (principal); Z95.5 Presence of coronary angioplasty implant and graft; I25.10 Atherosclerotic heart disease of native coronary artery without angina pectoris
CPT/HCPCS: 93798

== ENCOUNTER 2024-04-05 14:07 | Outpatient (RCR) | payer MEDICARE, SELFPAY ==
[2024-04-04 00:40] VITALS: BP 118/76; BP 132/90; BP 140/70; BP 152/82
== END 2024-05-04 23:59 ==
LOC: CR 14:07
PROVIDERS: PCP Family Medicine; Referring Provider Internal Medicine Cardiovascular Disease; Visit Provider Internal Medicine Cardiovascular Disease
DX: I21.3 ST elevation (STEMI) myocardial infarction of unspecified site (principal); Z95.5 Presence of coronary angioplasty implant and graft; I25.10 Atherosclerotic heart disease of native coronary artery without angina pectoris

== ENCOUNTER → 2024-06-08 | Outpatient (CLI) | payer MEDICARE, SELFPAY ==
[2024-06-08 15:42] LABS: Absolute Lymphocyte Count 1.89 X10^3/uL (0.83-4.51); Absolute Neutrophil Count 4.8 X10^3/uL (2.0-7.7); Basophil# 0.07 X10^3/uL; Basophil% 0.9 % (0-1); Eosinophil# 0.24 X10^3/uL; Eosinophils% 3.1 % (0-5); Hematocrit 50.1 % (40-54); Hemoglobin 16.2 g/dL (13.0-16.5); Lymphocyte # 1.89 X10^3/ul (0.83-4.51); Lymphocyte % 24.5 % (19-41); Mean Corp Hgb Conc 32.3 g/dL (32-36); Mean Corpuscular Hgb 30.5 pg (27.0-32.0); Mean Corpuscular Volume 94.2 fL (80-94); Mean Platelet Vol. 9.2 fl (6.2-12.0); Monocyte# 0.69 X10^3/uL; Monocyte% 8.9 % (0-10); NRBC Flagged by Analyzer 0 % (0-5); Neutrophil # 4.77 X10^3/uL (2.7-7.7); Platelet Count 223 K/mm3 (150-450); RBC Distribution Width CV 13.6 % (11.6-14.6); RBC Distribution Width SD 47.3 fl (35.1-43.9); Red Blood Count 5.32 M/mm3 (4.6-6.2); White Blood Count 7.7 K/mm3 (4.4-11.0)
[2024-06-08 15:55] LABS: Anion Gap 5 (5-15); BUN 14 mg/dL (7-18); BUN/Creat Ratio 7.3 RATIO (10-20); Calcium,Total 8.9 mg/dL (8.5-10.1); Chloride 108 mmol/L (98-107); Cholesterol 167 mg/dL (200); Creatinine, Serum 1.92 mg/dL (0.70-1.30); EST Glomerular Filtration Rate 39 mL/min (>60); Est Glom Filt Rate - Afr Amer 47 mL/min (>60); Glucose 148 mg/dL (74-106); High Density Lipoprotein 35 mg/dL; Potassium 4.4 mmol/L (3.5-5.1); Sodium Level 139 mmol/L (136-145); Triglycerides 349 mg/dL; Very Low Density Lipoprotein 70 mg/dL (5-40)
== END | disposition home or self-care (01) ==
LOC: MTLAB 12:51
PROVIDERS: PCP Family Medicine; Referring Provider Family Medicine; Visit Provider Family Medicine
DX: R53.83 Other fatigue (principal); E11.9 Type 2 diabetes mellitus without complications
CPT/HCPCS: 36415; 80048; 80061; 85025

== ENCOUNTER → 2024-07-02 | Outpatient (CLI) | payer MEDICARE, SELFPAY ==
[2024-07-02 17:49] LABS: Absolute Lymphocyte Count 1.85 X10^3/uL (0.83-4.51); Basophil# 0.06 X10^3/uL; Basophil% 0.7 % (0-1); Eosinophil# 0.27 X10^3/uL; Hematocrit 48.9 % (40-54); Hemoglobin 16.1 g/dL (13.0-16.5); Lymphocyte # 1.85 X10^3/ul (0.83-4.51); Lymphocyte % 20.7 % (19-41); Mean Corp Hgb Conc 32.9 g/dL (32-36); Mean Corpuscular Hgb 30.5 pg (27.0-32.0); Mean Corpuscular Volume 92.6 fL (80-94); Mean Platelet Vol. 9.5 fl (6.2-12.0); Monocyte# 0.71 X10^3/uL; Monocyte% 7.9 % (0-10); NRBC Flagged by Analyzer 0 % (0-5); Neutrophil # 5.99 X10^3/uL (2.7-7.7); Platelet Count 249 K/mm3 (150-450); RBC Distribution Width CV 13.3 % (11.6-14.6); RBC Distribution Width SD 45.5 fl (35.1-43.9); Red Blood Count 5.28 M/mm3 (4.6-6.2); White Blood Count 8.9 K/mm3 (4.4-11.0)
[2024-07-02 20:03] LABS: Anion Gap 11 (5-15); BUN 14 mg/dL (4-19); BUN/Creat Ratio 7.6 RATIO (10-20); Calcium 9.5 mg/dL (7.6-11.0); Carbon Dioxide 23.1 mmol/L (22.0-29.0); Chloride 104 mmol/L (96-108); Creatinine, Serum 1.89 mg/dL (0.70-1.20); EST Glomerular Filtration Rate 41 (>60); Glucose 144 mg/dL (70-99); Potassium 4.7 mmol/L (3.3-5.1); Sodium Level 139 mmol/L (133-145)
== END | disposition home or self-care (01) ==
PROVIDERS: PCP Family Medicine; Referring Provider Family Medicine; Visit Provider Family Medicine
DX: R53.83 Other fatigue (principal); R30.0 Dysuria
CPT/HCPCS: 36415; 80048; 85025; 87077; 87086; 87088; 87186

== ENCOUNTER → 2024-07-21 | Outpatient (CLI) | payer MEDICARE, SELFPAY ==
--- NOTE | 2024-07-21 18:15 | STRESSREP ---
Stress Test Report Pharmacologic myocardial perfusion stress test. 54-year-old man with a history of chest pain Resting EKG demonstrates sinus rhythm with a rate of 64 bpm. Resting blood pressure is 160/94 mmHg. 0.4 mg of regadenoson was infused per usual protocol followed by rapid intravenous saline flush injection. Continuous EKG monitoring was performed. The maximum heart rate was 96 bpm which was 58% of max impacted heart rate the maximum workload was 1 metabolic equivalent. At rest there were no ST or T wave changes noted to suggest ischemia and at peak infusion nonspecific ST changes were noted which did not meet the criteria for ischemia. No clinical angina is noted. The final blood pressure was 150/98 mmHg. Myocardial perfusion protocol. 14.3 mCi of technetium 99m sestamibi was injected at rest. 0.4 mg of regadenoson was infused per usual protocol. At peak infusion 45.0 mCi of technetium 99m sestamibi was injected stress images were obtained stress and rest images were reconstructed and compared in the short axis vertical long and horizontal long axis. Gated images were also obtained. Perfusion SPECT analysis: Review of the stress images demonstrate normal uptake of tracer noted in all areas of the myocardium. The resting images similar demonstrated normal uptake of tracer noted in all areas of the myocardium. No areas of reversibility are noted to suggest ischemia and no previous infarct is noted. Gated SPECT analysis: The gated ejection fraction is 57%. Conclusion: Normal pharmacologic myocardial perfusion stress test. Preserved ejection fraction.
== END | disposition home or self-care (01) ==
LOC: CVS 06:40
PROVIDERS: PCP Family Medicine; Referring Provider Nurse Practitioner Family; Visit Provider Nurse Practitioner Family
DX: R53.83 Other fatigue (principal); R07.9 Chest pain, unspecified; Z95.5 Presence of coronary angioplasty implant and graft
CPT/HCPCS: 78452; 93017; A9500; A4216; J2785

== ENCOUNTER → 2024-09-17 | Outpatient (CLI) | payer MEDICARE, SELFPAY ==
[2024-09-17 12:56] LABS: ALB/GLOB Ratio 1.5 RATIO (0.9-2.4); AST(SGOT) 25 U/L (<=37); Alanine Aminotransfer ALT/SGPT 30 U/L (<=46); Albumin, Serum 4.3 g/dL (3.5-5.0); Alkaline Phosphatase 94 U/L (40-129); Anion Gap 11 (5-15); BUN 17 mg/dL (4-19); BUN/Creat Ratio 8.5 RATIO (10-20); Calcium,Total 9.5 mg/dL (7.6-11.0); Carbon Dioxide 22.6 mmol/L (21.0-32.0); Chloride 104 mmol/L (98-108); Cholesterol 167 mg/dL (<=200); Creatinine, Serum 1.95 mg/dL (0.70-1.20); EST Glomerular Filtration Rate 40 (>60); Globulin 2.8 g/dL (2.2-4.2); Glucose 109 mg/dL (70-99); High Density Lipoprotein 30 mg/dL; Low Density Lipoprotein Calc. 60 mg/dL; Potassium 4.1 mmol/L (3.3-5.1); Protein, Total 7.1 g/dL (5.9-8.4); Sodium Level 138 mmol/L (133-145); Total Bilirubin 0.23 mg/dL (0.00-1.30); Triglycerides 385 mg/dL; Very Low Density Lipoprotein 77 mg/dL (5-40); cholesterol:hdl ratio screen 5.49
== END | disposition home or self-care (01) ==
LOC: MFPLAB 10:02
PROVIDERS: PCP Family Medicine; Referring Provider Family Medicine; Visit Provider Family Medicine
DX: E11.9 Type 2 diabetes mellitus without complications (principal)
CPT/HCPCS: 36415; 80053; 80061

== ENCOUNTER → 2024-10-25 | Outpatient (CLI) | payer MEDICARE, SELFPAY ==
--- NOTE | 2024-10-25 16:40 | RAD_ITS ---
PROCEDURE: CERV SPINE 2 OR 3 VIEWS 10/25/2024 REASON FOR EXAM: RADICULOPATHY, CERVICAL REGION TECHNIQUE: CERV SPINE 2 OR 3 VIEWS COMPARISON: None. FINDINGS: There are diffuse spondylotic changes. Findings are demonstrated to by diffuse disc space narrowing, osteophyte formation and degenerative endplate sclerosis. There is diffuse facet joint arthropathy with secondary bilateral neural foramina narrowing. No fracture or dislocation is seen. No aggressive lytic or blastic bony lesion is noted. RAD/Cerv Spine 2 or 3 Views IMPRESSION: Spondylosis, more prominent at C5-C6. [facility]
--- OUTSIDE RECORDS SUMMARY | 2024-10-25 23:11 | XMS RPT_ITS | CCD ---
Author Organization [facility] Care Team Providers Care Medical Coding Specialist Name Role Phone Roof NIRU, Ruben Marija Unavailable Khan, Dayan Unavailable Unavailable Khan, Dayan Unavailable Unavailable Khan, Dayan Unavailable Unavailable ALBERTO PAULA Unavailable Unavailable ALBERTO PAULA Unavailable Unavailable TANGELA GUNN Unavailable Unavailable BRENNAN TY Unavailable Unavailable JANELL SAMSON Referring Unavailable JANELL SAMSON Referring Unavailable JANELL SAMSON Attending Unavailable CHAPIN, JANELL Referring Unavailable ELSA ROGERS Attending Unavailable PASCUAL MANN Referring Unavailable Khan, Dayan Unavailable Unavailable Khan, Dayan Unavailable Unavailable Bety FOSTER, Elaina Verde Unavailable Unavailable Heriberto, Appleton Attending Unavailable Heriberto, Ming Referring Unavailable Brennan Ty Primary Care Unavailable Brennan Ty Primary Care Unavailable Heriberto, Ming Referring Unavailable Heriberto, Appleton Attending Unavailable Brennan Ty Primary Care Unavailable Tarsha RN LACTATION CONSULTANT, Courtney Attending Unavailable Tarsha RN LACTATION CONSULTANT, Courtney Referring Unavailable Heriberto, Appleton Attending Unavailable Heriberto, Appleton Referring Unavailable Karson Brennan Primary Care Unavailable Heriberto, Appleton Attending Unavailable Heriberto, Appleton Referring Unavailable Ty, Brennan Primary Care Unavailable Belal, Farouk Referring Unavailable Belal, Farouk Admitting Unavailable Belal, Farouk Consulting Unavailable Anant Angeles Attending Unavailable Brennan Ty Primary Care Unavailable Anant Angeles Consulting Unavailable Belal, Farouk Attending Unavailable Belal, Farouk Referring Unavailable Belal, Farouk Admitting Unavailable Anant Angeles Consulting Unavailable Brennan Ty Primary Care Unavailable Belal, Farouk Consulting Unavailable Belal, Farouk Referring Unavailable Belal, Farouk Admitting Unavailable Belal, Farouk Consulting Unavailable Karthik, Anant Attending Unavailable Ty, Brennan Primary Care Unavailable Anant Angeles Consulting Unavailable Ty, Brennan Attending Unavailable Ty, Brennan Referring Unavailable Ty, Brennan Primary Care Unavailable Ty, Brennan Referring Unavailable Ty, Brennan Primary Care Unavailable Ty, Brennan Attending Unavailable Roof RN LACTATION CONSULTANT, Ruben H Attending Unavailable Roof RN LACTATION CONSULTANT, Ruben H Referring Unavailable Ty, Brennan Primary Care Unavailable Ty, Brennan Referring Unavailable Ty, Brennan Primary Care Unavailable Ty, Brennan Attending Unavailable Read RN LACTATION CONSULTANT, Janett Attending Unavailable Ty, Brennan Referring Unavailable Ty, Brennan Primary Care Unavailable Belal, Farouk Attending Unavailable Karthik, Anant Attending Unavailable Ty, Brennan Primary Care Unavailable Read RN LACTATION CONSULTANT, Janett Attending Unavailable Read RN LACTATION CONSULTANT, Janett Referring Unavailable Ty, Brennan Primary Care Unavailable Read RN LACTATION CONSULTANT, Janett Attending Unavailable Read RN LACTATION CONSULTANT, Janett Referring Unavailable Ty, Brennan Primary Care Unavailable Heriberto, Ming Referring Unavailable Heriberto, Appleton Attending Unavailable Ty, Brennan Primary Care Unavailable Heriberto, Ming Referring Unavailable Heriberto, Ming Attending Unavailable Loren Conklin Attending Unavail able Ty, Brennan Referring Unavailable Ty, Brennan Primary Care Unavailable Heriberto, Appleton Attending Unavailable Ty, Brennan Primary Care Unavailable Ty, Brennan Primary Care Unavailable Parker Leger Attending Unavailable Read RN LACTATION CONSULTANT, Janett Referring Unavailable Ty, Brennan Primary Care Unavailable Read RN LACTATION CONSULTANT, Janett Attending Unavailable Ty, Brennan Primary Care Unavailable Heriberto, [place] Attending Unavailable Roof RN LACTATION CONSULTANT, Ruben H Consulting Unavailable Roof RN LACTATION CONSULTANT, Ruben H Referring Unavailable Heriberto, Appleton Attending Unavailable Ty, Brennan Primary Care Unavailable Roof RN LACTATION CONSULTANT, Ruben H Attending Unavailable Ty, Brennan Referring Unavailable Ty, Brennan Primary Care Unavailable Ty, Brennan Primary Care Unavailable Heriberto, Ming Attending Unavailable Heriberto, Ming Referring Unavailable Allergies Allergy Classification Reported Allergen(s) Allergy Type Date of Onset Reaction(s) Facility (8 sources) sulfamethoxazole / trimethoprim drug allergy 6 [facility] Work Phone: (2 sources) sulfamethoxazole / trimethoprim; Translations: [SULFAMETHOXAZOLE-TR IMETHOPRIM] Drug Allergy 6 [facility] Repository (1 source) buPROPion Drug Allergy 5 [facility] Repository (1 source) Sulfamethoxazole Drug Allergy 5 [facility] Repository (1 source) Trimethoprim Drug Allergy 5 [facility] Repository Medications Completed/Discontinued Medications Medication Drug Class(es) Dates Sig (Normalized) Sig (Original) HYDROCODONE-ACETAM INOPHEN (16 sources) Opioid Agonist Start: 10-03-2016 take 1 tablet by mouth four times daily as needed NORCO 5-325 MG TABS One tablet by mouth four times daily as needed HYDROCODONE-ACETAMI NOPHEN [id number] Tamiko Cabrera RN Start: 10-03-2016 take 1 tablet by sunny th four times daily as needed NORCO 5-325 MG TABS One tablet by mouth four times daily as needed HYDROCODONE-ACETAMINOPHEN [id number] Tamiko Cabrera RN NORCO 5-325 MG T ABS as needed HYDROCODONE-ACETAMINOPHEN [id number] Bobby Sarkar NORCO 5-325 MG T ABS as needed HYDROCODONE-ACETAMINOPHEN [id number] Bobby Sarkar allopurinol 100 mg oral tablet (20 sources) Xanthine Oxidase Inhibitor Start: 10-03-2016 End: 10-03-2016 take 1 tablet by mouth once daily ALLOPURINOL 100 MG TABS One tablet by mouth daily ALLOPURINOL [id number] Tamiko Cabrera RN amLODIPine 5 mg oral tablet (16 sources) Dihydropyridine Calcium Channel Obdulia End: 10-03-2016 take 1 tablet by mouth once daily NORVASC 5 MG TABS One tablet by mouth daily AMLODIPINE BESYLATE [id number] Tamiko Cabrera RN aspirin 81 mg delayed release oral tablet (8 sources) Nonsteroidal Anti-inflammatory Drug Start: 10-03-2016 take 1 tablet by mouth once daily ASPIRIN EC 81 MG TBEC One tablet by mouth daily ASPIRIN [id number] Tamiko Cabrera RN atorvastatin 80 mg oral tablet (16 sources) HMG-CoA Reductase Inhibitor Start: 10-03-2016 take 1 tablet by mouth once daily ATORVASTATIN CALCIUM 80 MG TABS One tablet by mouth every night ATORVASTATIN CALCIUM [id number] Tamiko Cabrera RN take 1 tablet by mouth once luan y LIPITOR 10 MG TABS One tablet by mouth daily ATORVASTATIN CALCIUM [id number] Bobby Sarkar B-COMPLEX W/ C & FOLIC ACID CAPS (5 sources) Start: 10-03-2016 take 1 tablet by mouth once daily RENAL CAPS One tablet by mouth daily B-COMPLEX W/ C & FOLIC ACID CAPS [id number] Tamiko Cabrera RN B-COMPLEX W/ C & FOLIC ACID CAPS (3 sources) Start: 10-03-2016 take 1 tablet by mouth once daily RENAL CAPS One tablet by mouth daily B-COMPLEX W/ C & FOLIC ACID CAPS 11404178812 Tamiko Cabrera RN carvedilol 25 mg oral tablet (16 sources) alpha-Adrenergi c Obdulia, beta-Adrenergic Obdulia End: 10-03-2016 take 1 tablet by mouth twice daily COREG 25 MG TABS One tablet by mouth twice daily CARVEDILOL 16587798544 Bobby Gibbspp cholecalciferol 51278 unt oral capsule (8 sources) Vitamin D VITAMIN D3 46839 UNIT CAPS one capsule weekly CHOLECALCIFEROL 69759052268 Bobby Gibbspp docosahexaenoic acid 1000 mg / omega-3 acid ethyl esters (senior care) 300 mg delayed release oral capsule (3 sources) take 1 tablet by mouth once daily FISH OIL 1000 MG CPDR One tablet by mouth daily OMEGA-3 FATTY ACIDS 40655804217 Bobby Gibbspp escitalopram 5 mg oral tablet (8 sources) Serotonin Reuptake Inhibitor take 1 tablet by mouth once daily LEXAPRO 5 MG TABS One tablet by mouth daily ESCITALOPRAM OXALATE 77165308011 Bobby Gibbspp fish oil (13 sources) Start: 10-03-2016 take 1 tablet by mouth once daily FISH OIL CAPS 1200mg One tablet by mouth daily OMEGA-3 FATTY ACIDS CAPS [id number] Tamiko Cabrera RN take 1 tablet by mouth once luan y FISH OIL 1000 MG CPDR One tablet by mouth daily OMEGA-3 FATTY ACIDS 95149062032 Bobby López Mello gabapentin 300 mg oral capsule (18 sources) Anti-epileptic Agent Start: 10-03-2016 take 1 tablet by mouth three times daily GABAPENTIN 300 MG CAPS One tablet by mouth three times daily GABAPENTIN [id number] Tamiko Cabrera RN Start: 10-03-2016 GABAPENTIN 600 MG TABS GABAPENTIN 82211493832 Ruben Armendariz RN LACTATION CONSULTANT take 1 tablet by sunny three times daily GABAPENTIN 100 MG CAPS One tablet by mouth three times daily GABAPENTIN 57004980017 Bobby Sarkar 24 hr isosorbide mononitrate 30 mg extended release oral tablet (3 sources) Nitrate Vasodilator Start: 10-28-2016 take 1 tablet by mouth once daily ISOSORBIDE MONONITRATE ER 30 MG TC14O-BNV One tablet by mouth daily (Imdur) ISOSORBIDE MONONITRATE 13272825977 Loren Tomlinson PA-C lisinopril 5 mg oral tablet (8 sources) Angiotensin Converting Enzyme Inhibitor Start: 10-03-2016 take 1 tablet by mouth once daily LISINOPRIL 5 MG TABS One tablet by mouth daily LISINOPRIL 67906148886 Tamiko Cabrera RN losartan potassium 100 mg oral tablet (16 sources) Angiotensin 2 Receptor Obdulia End: 10-03-2016 take 1 tablet by mouth once daily COZAAR 100 MG TABS One tablet by mouth daily LOSARTAN POTASSIUM 69779850465 oBbby Sarkar metoprolol tartrate 25 mg oral tablet (8 sources) beta-Adrenergic Obdulia Start: 10-03-2016 take 1 tablet by mouth twice daily METOPROLOL TARTRATE 25 MG TABS One tablet by mouth twice daily METOPROLOL TARTRATE 64102430047 Tamiko Cabrera RN NICOTINE (8 sources) Cholinergic Nicotinic Agonist Start: 10-03-2016 NICODERM CQ 21 MG/24HR PT24 Apply once a day for a week NICOTINE [id number] Tamiko Cabrera RN Start: 10-03-2016 NICODERM CQ 21 MG/24HR PT24 Apply once a day for a week NICOTINE 04136692278 Tamiko Cabrera RN ticagrelor 90 mg oral tablet (8 sources) Start: 10-03-2016 take 1 tablet by mouth twice daily BRILINTA 90 MG TABS One tablet by mouth twice daily TICAGRELOR [id number] Tamiko Cabrera RN TRIMETHOPRIM TABS (8 sources) Dihydrofolate Reductase Inhibitor Antibacterial Start: 10-03-2016 take 1 tablet by mouth once daily TRIMETHOPRIM TABS One tablet by mouth daily TRIMETHOPRIM TABS 28810646576 Tamiko Cabrera RN Problems Active Problems Problem Classification Problem Date Documented Date Episodic/Chronic Acute myocardial infarction (10 sources) Acute ST segment elevation myocardial infarction; Translations: [ST elevation (STEMI) myocardial infarction of unspecified site] Onset: 10-03-2016 10-03-2016 Chronic Cardiac dysrhythmias (8 sources) Nonsustained ventricular tachycardia ; Translations: [Ventricular tachycardia] Onset: 10-03-2016 10-03-2016 Chronic Chronic kidney disease (8 sources) Chronic kidney disease stage 3; Translations: [Chronic kidney disease, stage 3 (moderate)] Onset: 10-03-2016 10-03-2016 Chronic Chronic kidney disease (1 source) Chronic kidney disease; Translations: [Chronic kidney disease, stage 3 unspecified] Onset: 12-20-2023 Coronary atherosclerosis and other heart disease (10 sources) Atherosclerotic heart disease of [place] coronary artery without angina pectoris; Translations: [Atherosclerotic heart disease of [place] coronary artery without angina pectoris] Onset: 10-03-2016 10-03-2016 Chronic Coronary atherosclerosis and other heart disease (2 sources) Presence of coronary angioplasty implant and graft; Translations: [Presence of coronary angioplasty implant and graft] Onset: 07-07-2024 Episodic Diabetes mellitus without complication (1 source) Type 2 diabetes mellitus without complications; Translations: [Type 2 diabetes mellitus without complications] Onset: 09-22-2024 Chronic Disorders of lipid metabolism (9 sources) Hyperlipidemia; Translations: [Hyperlipidemia, unspecified] Onset: 10-03-2016 10-03-2016 Chronic Essential hypertension (9 sources) Hypertensive disorder; Translations: [Essential (primary) hypertension] Onset: 10-03-2016 10-03-2016 Chronic Malaise and fatigue (2 sources) Other fatigue; Translations: [Other fatigue] Onset: 08-02-2024 Episodic Other diseases of bladder and urethra (1 [...] (3 sources) Long-term drug therapy; Translations: [Other terminal gauger (current) drug therapy] Onset: 10-03-2016 10-03-2016 Past [...] tract] Onset: 04-14-2015 Resolved: 10-03-2016 10-03-2016 Episodic Conditions associated with dizziness or vertigo (1 source) Dizziness and giddiness; Translations: [Dizziness and giddiness] Onset: 12-17-2023 Episodic Genitourinary symptoms and ill-defined conditions (1 source) Gross hematuria; Translations: [Gross hematuria] Onset: 08-18-2017 Episodic Other aftercare (5 sources) Other terminal gauger (current) drug therapy; Translations: [Other terminal gauger (current) drug therapy] Onset: 10-03-2016 10-03-2016 Episodic Other circulatory disease (1 source) Other specified symptoms and signs involving the circulatory and respiratory systems; Translations: [Other specified symptoms and signs involving the circulatory and respiratory systems] Onset: 01-07-2024 Episodic Other diseases of kidney and ureters (1 source) Unspecified hydronephrosis; Translations: [Unspecified hydronephrosis] Onset: 07-12-2017 Episodic Other screening for suspected conditions (not mental disorders or infectious disease) (2 sources) Abnormal results of kidney function studies; Translations: [Encounter for screening for malignant neoplasm of respiratory organs] Onset: 08-18-2017 Episodic Results Test Name Value Interpretation Reference Range Facility Comprehensive Metabolic Prof [facility] 09-17-2024 Albumin [Mass/Vol] 4.3 g/dL Normal 3.5-5.0 [facility] Comment on above: Order Comment: 1 Y Performed By: #### L 100.0100, L500.2500, L300.8000, L501.5425 #### [facility] [address] [place], [address] Albumin/Globulin [Mass ratio] 1.5 {ratio} Normal 0.9-2.4 [facility] Comment on above: Order Comment: 1 Y Performed By: #### L 100.0100, L500.2500, L300.8000, L501.5425 #### [facility] [address] [place], [address] ALK PHOS 94 U/L Normal 40-129 [facility] Comment on above: Order Comment: 1 Y Performed By: #### L 100.0100, L500.2500, L300.8000, L501.5425 #### [facility] [address] [place], [address] ALT [Catalytic activity/Vol] 30 U/L Normal <=46 [facility] Comment on above: Order Comment: 1 Y Performed By: #### L 100.0100, L500.2500, L300.8000, L501.5425 #### [facility] [address] [place], [address] AST [Catalytic activity/Vol] 25 U/L Normal <=37 [facility] Comment on above: Order Comment: 1 Y Performed By: #### L 100.0100, L500.2500, L300.8000, L501.5425 #### [facility] [address] [place], [address] Bilirubin [Mass/Vol] 0.23 mg/dL Normal 0.00-1.30 [facility] Comment on above: Order Comment: 1 Y Performed By: #### L 100.0100, L500.2500, L300.8000, L501.5425 #### [facility] [address] [place], [address] BUN/CRE 8.5 RATIO Low 10-20 [facility] Comment on above: Order Comment: 1 Y Performed By: #### L 100.0100, L500.2500, L300.8000, L501.5425 #### [facility] [address] [place], [address] Calcium [Mass/Vol] 9.5 mg/dL Normal 7.6-11.0 [facility] Comment on above: Order Comment: 1 Y Performed By: #### L 100.0100, L500.2500, L300.8000, L501.5425 #### [facility] [address] [place], [address] Chloride [Moles/Vol] 104 mmol/L Normal 98-108 [facility] Comment on above: Order Comment: 1 Y Performed By: #### L 100.0100, L500.2500, L300.8000, L501.5425 #### [facility] [address] [place], [address] CO2 [Moles/Vol] 22.6 mmol/L Normal 21.0-32.0 [facility] Comment on above: Order Comment: 1 Y Performed By: #### L 100.0100, L500.2500, L300.8000, L501.5425 #### [facility] [address] [place], [address] Creatinine [Mass/Vol] 1.95 mg/dL High 0.70-1.20 [facility] Comment on above: Order Comment: 1 Y Performed By: #### L 100.0100, L500.2500, L300.8000, L501.5425 #### [facility] [address] [place], [address] GAP 11 Normal 5-15 [facility] Comment on above: Order Comment: 1 Y Performed By: #### L 100.0100, L500.2500, L300.8000, L501.5425 #### [facility] [address] [place], [address] GFR/1.73 sq M.predicted among non-blacks MDRD (S/P/Bld) [Vol rate/Area] 40 mL/min/{1.73_m2} Low >60 [facility] Comment on above: Order Comment: 1 Y Result Comment: mL/m in/1.73m2 CKD-EPI Creatinine Equation (2020) Performed By: #### L 100.0100, L500.2500, L300.8000, L501.5425 #### [facility] [address] [place], [address] Globulin (S) [Mass/Vol] 2.8 g/dL Normal 2.2-4.2 [facility] Comment on above: Order Comment: 1 Y Performed By: #### L 100.0100, L500.2500, L300.8000, L501.5425 #### [facility] [address] [place], [address] Glucose [Mass/Vol] 109 mg/dL High 70-99 [facility] Comment on above: Order Comment: 1 Y Performed By: #### L 100.0100, L500.2500, L300.8000, L501.5425 #### [facility] [address] [place], [address] Potassium [Moles/Vol] 4.1 mmol/L Normal 3.3-5.1 [facility] Comment on above: Order Comment: 1 Y Performed By: #### L 100.0100, L500.2500, L300.8000, L501.5425 #### [facility] [address] [place], [address] Sodium [Moles/Vol] 138 mmol/L Normal 133-145 [facility] Comment on above: Order Comment: 1 Y Performed By: #### L 100.0100, L500.2500, L300.8000, L501.5425 #### [facility] [address] [place], [address] T PROT 7.1 g/dL Normal 5.9-8.4 [facility] Comment on above: Order Comment: 1 Y Performed By: #### L 100.0100, L500.2500, L300.8000, L501.5425 #### [facility] [address] [place], [address] Urea nitrogen [Mass/Vol] 17 mg/dL Normal 4-19 [facility] Comment on above: Order Comment: 1 Y Performed By: #### L 100.0100, L500.2500, L300.8000, L501.5425 #### [facility] [address] [place], [address] Lipid Profileon 09-17-2024 CHOL:HDL 5.49 Normal [facility] Comment on above: Order Comment: 1 Y Performed By: #### L 100.0100, L500.2500, L300.8000, L501.5425 #### [facility] [address] [place], [address] Cholesterol [Mass/Vol] 167 mg/dL Normal <=200 [facility] Comment on above: Order Comment: 1 Y Result Comment: Chol esterol level, Desirable <200 mg/dL Borderline high cholesterol 200-239 mg/dL High cholesterol >=240 mg/dL Recommendations of the NCEP Adult Treatment Panel for the following risk-cutoff thresholds for the [place] population. Performed By: #### L 100.0100, L500.2500, L300.8000, L501.5425 #### [facility] [address] [place], [address] Cholesterol in HDL [Mass/Vol] 30 mg/dL Low [facility] Comment on above: Order Comment: 1 Y Result Comment: Teresa onal Cholesterol Education Program (NCEP) guidelines: <40 mg/dL: Low HDL-cholesterol (major risk factor for CHD) >= 60 mg/dL: High HDL-cholesterol (negative risk factor for CHD) HDL-cholesterol is affected by a number of factors, e.g. smoking, exercise, hormones, sex and age. Performed By: #### L 100.0100, L500.2500, L300.8000, L501.5425 #### [facility] [address] [place], [address] Cholesterol in LDL [Mass/Vol] 60 mg/dL Normal [facility] Comment on above: Order Comment: 1 Y Result Comment: Bord blhnli=738-863 mg/dL Higher Ulwr=380 mg/dL or greater Performed By: #### L 100.0100, L500.2500, L300.8000, L501.5425 #### [facility] [address] [place], [address] Cholesterol in VLDL [Mass/Vol] 77 mg/dL High 5-40 [facility] Comment on above: Order Comment: 1 Y Performed By: #### L 100.0100, L500.2500, L300.8000, L501.5425 #### [facility] [address] [place], [address] Triglyceride [Mass/Vol] 385 mg/dL High [facility] Comment on above: Order Comment: 1 Y Result Comment: The drugs N-Acetylcysteine and Metamizole may falsely depress this assay. Normal range: <150 mg/dL Borderline High: 150-199 mg/dL High: 200-499 mg/dL Very High: >500 mg/dL Performed By: #### L 100.0100, L500.2500, L300.8000, L501.5425 #### [facility] [address] [place], [address] Stress Reporton 07-21-2024 Stress Report [facility] [address] [place] [address] MR#: [id number] Acct: [id number] Name: MARY NELSON Rep #: [id number] : 1970 54 From: Ming Louis MD Primary Care: Dr. Brennan Ty MD Status: REG CLI Referring Dr: Ruben Armendariz NP Sex: M C Stress Test Report Pharmacologic myocardial perfusion stress test. 54-year-old man with a history of chest pain Resting EKG demonstrates sinus rhythm with a rate of 64 bpm. Resting blood pressure is 160/94 mmHg. 0.4 mg of regadenoson was infused per usual protocol followed by rapid intravenous saline flush injection. Continuous EKG monitoring was performed. The maximum heart rate was 96 bpm which was 58% of max impacted heart rate the maximum workload was 1 metabolic equivalent. At rest there were no ST or T wave changes noted to suggest ischemia and at peak infusion nonspecific ST changes were noted which did not meet the criteria for ischemia. No clinical angina is noted. The final blood pressure was 150/98 mmHg. Myocardial perfusion protocol. 14.3 mCi of technetium 99m sestamibi was injected at rest. 0.4 mg of regadenoson was infused per usual protocol. At peak infusion 45.0 mCi of technetium 99m sestamibi was injected stress images were obtained stress and rest images were reconstructed and compared in the short axis vertical long and horizontal long axis. Gated images were also obtained. Perfusion SPECT analysis: Review of the stress images demonstrate normal uptake of tracer noted in all areas of the myocardium. The resting images similar demonstrated normal uptake of tracer noted in all areas of the myocardium. No areas of reversibility are noted to suggest ischemia and no previous infarct is noted. Gated SPECT analysis: The gated ejection fraction is 57%. Conclusion: Normal pharmacologic myocardial perfusion stress test. Preserved ejection fraction. 07/21/241816 Date Ming Louis MD CC: RN LACTATION CONSULTANTZulay Armendariz; Dr. Brennan Ty MD Date Dictated: 07/21/241814 Date Transcribed: 07/21/241814 Asbestos Coverer: CO Signed Normal [facility] Cardiology Visit Reporton Cardiology Visit Report [facility] [address] [place] [address]. [address] [place] [address] OFFICE VISIT Date of Service: 07/07/24 MR#: [id number] Acct: [id number] Name: MARY NELSON Rep #: [id number] : 1970 Provider: LOTTIE emery Age/Sex: 54/M Location: [facility] Status: Signed HPI HPI History of Present Illness Details: This is a 54-year-old gentleman who presents here today for a cardiovascular follow-up. He has a history of coronary artery disease. In September 2016 he had a STEMI and underwent stenting to his left circumflex. In October 2019 he presented to the emergency room with chest discomfort. He underwent stenting to his RCA. He had a stress echocardiogram which was negative for ischemia. He also has a history of NSVT, hypertension, hyperlipidemia, stage 3 kidney disease, moderate bilateral hydronephrosis in which he needs to self cath, pancreatitis, diabetes, history of acute pancreatitis, obstructive sleep apnea and tobacco abuse. He also has a history of diabetes. Patient presented to the emergency room on 12/06/2023 with complaints of chest pain. He did have EKG changes, and elevated troponin. He underwent a cardiac catheterization which demonstrated 99% stenosis of his RCA. He did undergo successful drug-eluting stent to his RCA. His echocardiogram on 12/06/2023 demonstrated ejection fraction of 55%. He states noting heart weak feeling.He saw PCP with such concerns. He had urine evaluation and treated with UTI. He noted improvement in heart weakness with antibiotic. He denies arm, jaw, or neck discomfort. He denies palpitations. He denies bilateral lower extremity edema. He denies claudication. He denies shortness of breath with activity, shortness of breath at rest, orthopnea, or PND. He denies chronic cough. He denies significant, sudden weight gain. He denies lightheadedness, dizziness, near-syncope, or syncope. He denies blood in urine, blood in stool, or epistaxis. He denies fever with chills. He denies myalgia. He states brain fog and fatigue. His exercise level has remained stable. Intake Vital Signs 05/22/23 15:03 03/25/24 08:18 07/07/24 11:36 Height 6 ft 1 in 6 ft 1 in 6 ft 1 in Weight: 221 lb BMI 29.1 BP 112/78 Blood Pressure Location Lt brachial Position Sitting Respiration 18 Pulse 97 Pulse Source NIBP Intake Visit Reasons: 1 Y FU Regional Controller Required: No Is patient in pain?: No Allergies sulfamethoxazole (From Bactrim) Allergy (Mild, Verified 07/07/24 12:01) Rash trimethoprim (From Bactrim) Allergy (Mild, Verified 07/07/24 12:01) Rash bupropion (From Wellbutrin) Adverse Reaction (Verified 07/07/24 12:01) Elevated BP Medications ???Medication ???Instructions ???Recorded ???Confirmed ???Type escitalopram oxalate 5 mg tablet 5 mg PO DAILY depression 04/21/15 07/07/24 History fish oil-dha-epa 1,200 mg-144 1 each PO DAILY supplement 5 07/07/24 History mg-216 mg capsule allopurinol 100 mg tablet 100 mg PO DAILY edema; uric acid 0 07/25/15 07/07/24 History aspirin 81 mg tablet,delayed 81 mg PO DAILY@0800 health 8 07/07/24 History release maintenance nitroglycerin 0.4 mg sublingual 0.4 mg sublingual Q5M PRN chest 07/07/24 Rx tablet pain #25 tabs cyclobenzaprine 10 mg tablet 10 mg PO DAILY PRN Pain 1-10 Or 07/07/24 History Fever meloxicam 7.5 mg tablet 7.5 mg PO PRN PAIN 08/12/20 History esomeprazole magnesium 20 mg 20 mg PO DAILY #30 caps 02/25/22 0 07/07/24 Rx capsule,delayed release (Nexium) gabapentin 600 mg tablet 600 mg PO BID 06/04/22 07/07/24 Hi story glimepiride 4 mg tablet 4 mg PO BID 06/04/22 07/07/24 Hist ory tizanidine 4 mg tablet 4 mg PO QHS PRN muscle spasticity 06/04/22 07/07/24 History vitamin B complex-vitamin C-folic 1 tab PO DAILY 06/04/22 07/07/24 History acid 0.8 mg tablet (Otilia-Prema) cholecalciferol (vitamin D3) 25 25 mcg PO DAILY 12/31/22 07/07/24 History mcg (1,000 unit) tablet (Vitamin D3) glucosamine sulfate 500 mg tablet 500 mg PO DAILY 07/09/23 07/07/24 History (Glucosamine) atorvastatin 80 mg tablet 80 mg PO QHS cholesterol #90 tabs 09/04/23 07/07/24 Rx carvedilol 25 mg tablet (Coreg) 25 mg PO BID #180 tabs 09/04/23 Rx lisinopril 5 mg tablet 5 mg PO DAILY 30 days #90 tabs 08/2607/07/24 Rx isosorbide mononitrate 60 mg 60 mg PO DAILY #90 tabs 07/05/24 0 07/07/24 Rx tablet,extended release 24 hr cefdinir 300 mg capsule mg PO 07/07/24 07/07/24 History clopidogrel 75 mg tablet 75 mg PO QDAY #90 tabs 07/07/24 Rx dapagliflozin propanediol 5 mg 5 mg PO QDAY 07/07/24 07/07/24 His tory tablet (Farxiga) duloxetine 60 mg capsule,delayed 60 mg PO QDAY 07/07/24 07/07/24 Hi story release tramadol 50 mg tablet (more content not included)... Normal [facility] Urine Cultureon 07-04-2024 URC Streptococcus agalac tiae (B) [place] Count >100,000 Streptococcus agalactiae (B): REACTION Ampicillin Islt CORNELIUS <=0.25 cefTRIAXone Islt CORNELIUS <=0.12 S Clindamycin.induced Susc Islt NEG Linezolid Islt CORNELIUS <=2 S Vancomycin Islt CORNELIUS 0.5 S Normal [facility] Comment on above: Performed By: #### L 100.0100, L500.2500, L300.8000, L501.5425 #### [facility] [address] [place], [place], [id number] Basic Metabolic Profile (BMP )on 07-02-2024 Anion gap [Moles/Vol] 11 mmol/L Normal 5-15 [facility] Comment on above: Performed By: #### L 9100.0100 #### [facility] [address] [place], [address] BUN/CRE 7.6 RATIO Low 10-20 [facility] Comment on above: Performed By: #### L 00.0100 #### [facility] [address] [place], [address] Calcium [Mass/Vol] 9.5 mg/dL Normal 7.6-11.0 [facility] Comment on above: Performed By: #### L 9099.0100 #### [facility] [address] [place], [address] Chloride [Moles/Vol] 104 mmol/L Normal 96-108 [facility] Comment on above: Performed By: #### L 9099.0100 #### [facility] [address] [place], [address] CO2 [Moles/Vol] 23.1 mmol/L Normal 22.0-29.0 [facility] Comment on above: Performed By: #### L 9099.0100 #### [facility] [address] [place], [address] Creatinine [Mass/Vol] 1.89 mg/dL High 0.70-1.20 [facility] Comment on above: Performed By: #### L 9099.0100 #### [facility] [address] [place], [address] GFR/1.73 sq M.predicted among non-blacks MDRD (S/P/Bld) [Vol rate/Area] 41 mL/min/{1.73_m2} Low >60 [facility] Comment on above: Result Comment: mL/m in/1.73m2 CKD-EPI Creatinine Equation (2020) Performed By: #### L 9099.0100 #### [facility] [address] [place], [address] Glucose [Mass/Vol] 144 mg/dL High 70-99 [facility] Comment on above: Performed By: #### L 9099.0100 #### [facility] [address] [place], [address] Potassium [Moles/Vol] 4.7 mmol/L Normal 3.3-5.1 [facility] Comment on above: Performed By: #### L 9099.0100 #### [facility] [address] [place], [address] Sodium [Moles/Vol] 139 mmol/L Normal 133-145 [facility] Comment on above: Performed By: #### L 9099.0100 #### [facility] [address] [place], [address] Urea nitrogen [Mass/Vol] 14 mg/dL Normal 4-19 [facility] Comment on above: Performed By: #### L 9099.0100 #### [facility] [address] [place], [address] CBC W/Diff, Automatedon 02-2 8-2024 Absolute Lymph 1.85 X10 3/uL Normal 0.83-4.51 [facility] Comment on above: Performed By: #### L 9099.0100 #### [facility] [address] [place], [address] Absolute Neut 6.0 X10 3/uL Normal 2.0-7.7 [facility] Comment on above: Performed By: #### L 9099.0100 #### [facility] [address] [place], [address] Basophils/100 WBC (Bld) 0.7 % Normal 0-1 [facility] Comment on above: Performed By: #### L 9099.0100 #### [facility] [address] [place], [address] Eosinophils/100 WBC (Bld) 3.0 % Normal 0-5 [facility] Comment on above: Performed By: #### L 00.0100 #### [facility] [address] [place], [address] Erythrocyte distribution width (RBC) [Ratio] 13.3 % Normal 11.6-14.6 [facility] Comment on above: Performed By: #### L 9099.0100 #### [facility] [address] [place], [address] Hematocrit (Bld) [Volume fraction] 48.9 % Normal 40-54 [facility] Comment on above: Performed By: #### L 9099.0100 #### [facility] [address] [place], [address] Hemoglobin (Bld) [Mass/Vol] 16.1 g/dL Normal 13.0-16.5 [facility] Comment on above: Performed By: #### L 9099.0100 #### [facility] [address] [place], [address] IG% 0.700 Normal 0.0-0.9 [facility] Comment on above: Result Comment: IG% - Immature Granulocytes (promyelocytes, myelocytes and metamyelocytes) > 1% indicates that a LEFT SHIFT is Present. Performed By: #### L 9099.0100 #### [facility] [address] [place], [address] Lymphocytes/100 WBC (Bld) 20.7 % Normal 19-41 [facility] Comment on above: Performed By: #### L 9099.0100 #### [facility] [address] [place], [address] MCH (RBC) [Entitic mass] 30.5 pg Normal 27.0-32.0 [facility] Comment on above: Performed By: #### L 9099.0100 #### [facility] [address] [place], [address] MCHC (RBC) [Mass/Vol] 32.9 g/dL Normal 32-36 [facility] Comment on above: Performed By: #### L 00.0100 #### [facility] [address] [place], [address] MCV (RBC) [Entitic vol] 92.6 fL Normal 80-94 [facility] Comment on above: Performed By: #### L 9099.0100 #### [facility] [address] [place], [address] Monocytes/100 WBC (Bld) 7.9 % Normal 0-10 [facility] Comment on above: Performed By: #### L 9099.0100 #### [facility] [address] [place], [address] Neutrophils/100 WBC (Bld) 67.0 % Normal 47-70 [facility] Comment on above: Performed By: #### L 9099.0100 #### [facility] [address] [place], [address] Nucleated RBC (Bld) [#/Vol] 0 10*3/uL Normal 0-5 [facility] Comment on above: Performed By: #### L 9099.0100 #### [facility] [address] [place], [address] Platelet mean volume (Bld) [Entitic vol] 9.5 fL Normal 6.2-12.0 [facility] Comment on above: Performed By: #### L 9099.0100 #### [facility] [address] [place], [address] Platelets (Bld) [#/Vol] 249 10*3/uL Normal 150-450 [facility] Comment on above: Performed By: #### L 9099.0100 #### [facility] [address] [place], [address] RBC (Bld) [#/Vol] 5.28 10*6/uL Normal 4.6-6.[address] [facility] Comment on above: Performed By: #### L 9100.0100 #### [facility] [address] [place], [address] RDW SD 45.5 fl High 35.1-43.9 [facility] Comment on above: Performed By: #### L 9100.0100 #### [facility] [address] [place], [address] WBC (Bld) [#/Vol] 8.9 10*3/uL Normal 4.4-11.0 [facility] Comment on above: Performed By: #### L 9100.0100 #### [facility] [address] [place], [address] Basic Metabolic Profile (BMP )on 06-08-2024 BUN/CRE 7.3 RATIO Low 10-20 [facility] Comment on above: Performed By: #### L 100.0100, L500.2500, L300.8000, L501.5425 #### [facility] [address] [place], [address] CA,Total 8.9 mg/dL Normal 8.5-10.1 [facility] Comment on above: Performed By: #### L 100.0100, L500.2500, L300.8000, L501.5425 #### [facility] [address] [place], [address] Chloride [Moles/Vol] 108 mmol/L High 98-107 [facility] Comment on above: Performed By: #### L 100.0100, L500.2500, L300.8000, L501.5425 #### [facility] [address] [place], [address] CO2 [Moles/Vol] 26.0 mmol/L Normal 21.0-32.0 [facility] Comment on above: Performed By: #### L 100.0100, L500.2500, L300.8000, L501.5425 #### [facility] [address] [place], [address] Creatinine [Mass/Vol] 1.92 mg/dL High 0.70-1.30 [facility] Comment on above: Result Comment: The validity of the calculated GFR GFRAA in patients over 70 years has not been determined. Clinical correlation is essential. Performed By: #### L 100.0100, L500.2500, L300.8000, L501.5425 #### [facility] [address] [place], [address] EST GFR - AA 47 mL/min Low >60 [facility] Comment on above: Result Comment: Afri can [place] GFR Calc Performed By: #### L 100.0100, L500.2500, L300.8000, L501.5425 #### [facility] [address] [place], [address] GAP 5 Normal 5-15 [facility] Comment on above: Performed By: #### L 100.0100, L500.2500, L300.8000, L501.5425 #### [facility] [address] [place], [address] GFR/1.73 sq M.predicted among non-blacks MDRD (S/P/Bld) [Vol rate/Area] 39 mL/min/{1.73_m2} Low >60 [facility] Comment on above: Result Comment: Non- GFR Calc Performed By: #### L 100.0100, L500.2500, L300.8000, L501.5425 #### [facility] [address] [place], [address] Glucose [Mass/Vol] 148 mg/dL High 74-106 [facility] Comment on above: Result Comment: Fast ing Glucose result greater than or equal to 126 mg/dL suggests DIABETES MELLITUS per A.D.A. criteria. Performed By: #### L 100.0100, L500.2500, L300.8000, L501.5425 #### [facility] [address] [place], [address] Potassium [Moles/Vol] 4.4 mmol/L Normal 3.5-5.1 [facility] Comment on above: Performed By: #### L 100.0100, L500.2500, L300.8000, L501.5425 #### [facility] [address] [place], [address] Sodium [Moles/Vol] 139 mmol/L Normal 136-145 [facility] Comment on above: Performed By: #### L 100.0100, L500.2500, L300.8000, L501.5425 #### [facility] [address] [place], [address] Urea nitrogen [Mass/Vol] 14 mg/dL Normal 7-18 [facility] Comment on above: Performed By: #### L 100.0100, L500.2500, L300.8000, L501.5425 #### [facility] [address] [place], [address] CBC W/Diff, Automatedon 02-0 -2024 Absolute Lymph 1.89 X10 3/uL Normal 0.83-4.51 [facility] Comment on above: Performed By: #### L 100.0100, L500.2500, L300.8000, L501.5425 #### [facility] [address] [place], [address] Absolute Neut 4.8 X10 3/uL Normal 2.0-7.7 [facility] Comment on above: Performed By: #### L 100.0100, L500.2500, L300.8000, L501.5425 #### [facility] [address] [place], [address] Basophils/100 WBC (Bld) 0.9 % Normal 0-1 [facility] Comment on above: Performed By: #### L 100.0100, L500.2500, L300.8000, L501.5425 #### [facility] [address] [place], [address] Eosinophils/100 WBC (Bld) 3.1 % Normal 0-5 [facility] Comment on above: Performed By: #### L 100.0100, L500.2500, L300.8000, L501.5425 #### [facility] [address] [place], [address] Erythrocyte distribution width (RBC) [Ratio] 13.6 % Normal 11.6-14.6 [facility] Comment on above: Performed By: #### L 100.0100, L500.2500, L300.8000, L501.5425 #### [facility] [address] [place], [address] Hematocrit (Bld) [Volume fraction] 50.1 % Normal 40-54 [facility] Comment on above: Performed By: #### L 100.0100, L500.2500, L300.8000, L501.5425 #### [facility] [address] [place], [address] Hemoglobin (Bld) [Mass/Vol] 16.2 g/dL Normal 13.0-16.5 [facility] Comment on above: Performed By: #### L 100.0100, L500.2500, L300.8000, L501.5425 #### [facility] [address] [place], [address] IG% 0.600 Normal 0.0-0.9 [facility] Comment on above: Result Comment: IG% - Immature Granulocytes (promyelocytes, myelocytes and metamyelocytes) > 1% indicates that a LEFT SHIFT is Present. Performed By: #### L 100.0100, L500.2500, L300.8000, L501.5425 #### [facility] [address] [place], [address] Lymphocytes/100 WBC (Bld) 24.5 % Normal 19-41 [facility] Comment on above: Performed By: #### L 100.0100, L500.2500, L300.8000, L501.5425 #### [facility] [address] [place], [address] MCH (RBC) [Entitic mass] 30.5 pg Normal 27.0-32.0 [facility] Comment on above: Performed By: #### L 100.0100, L500.2500, L300.8000, L501.5425 #### [facility] [address] [place], [address] MCHC (RBC) [Mass/Vol] 32.3 g/dL Normal 32-36 [facility] Comment on above: Performed By: #### L 100.0100, L500.2500, L300.8000, L501.5425 #### [facility] [address] [place], [address] MCV (RBC) [Entitic vol] 94.2 fL High 80-94 [facility] Comment on above: Performed By: #### L 100.0100, L500.2500, L300.8000, L501.5425 #### [facility] [address] [place], [address] Monocytes/100 WBC (Bld) 8.9 % Normal 0-10 [facility] Comment on above: Performed By: #### L 100.0100, L500.2500, L300.8000, L501.5425 #### [facility] [address] [place], [address] Neutrophils/100 WBC (Bld) 62.0 % Normal 47-70 [facility] Comment on above: Performed By: #### L 100.0100, L500.2500, L300.8000, L501.5425 #### [facility] [address] [place], [address] Nucleated RBC (Bld) [#/Vol] 0 10*3/uL Normal 0-5 [facility] Comment on above: Performed By: #### L 100.0100, L500.2500, L300.8000, L501.5425 #### [facility] [address] [place], [address] Platelet mean volume (Bld) [Entitic vol] 9.2 fL Normal 6.2-12.0 [facility] Comment on above: Performed By: #### L 100.0100, L500.2500, L300.8000, L501.5425 #### [facility] [address] [place], [address] Platelets (Bld) [#/Vol] 223 10*3/uL Normal 150-450 [facility] Comment on above: Performed By: #### L 100.0100, L500.2500, L300.8000, L501.5425 #### [facility] [address] [place], [address] RBC (Bld) [#/Vol] 5.32 10*6/uL Normal 4.6-6.[address] [facility] Comment on above: Performed By: #### L 100.0100, L500.2500, L300.8000, L501.5425 #### [facility] [address] [place], [address] RDW SD 47.3 fl High 35.1-43.9 [facility] Comment on above: Performed By: #### L 100.0100, L500.2500, L300.8000, L501.5425 #### [facility] [address] [place], [address] WBC (Bld) [#/Vol] 7.7 10*3/uL Normal 4.4-11.0 [facility] Comment on above: Performed By: #### L 100.0100, L500.2500, L300.8000, L501.5425 #### [facility] [address] [place], [address] Lipid Profileon 06-08-2024 Cholesterol [Mass/Vol] 167 mg/dL Normal 200 [facility] Comment on above: Result Comment: <200 mg/dL Desirable 200-240 mg/dL Borderline >240 mg/dL High Risk Performed By: #### L 100.0100, L500.2500, L300.8000, L501.5425 #### [facility] [address] [place], [address] Cholesterol in HDL [Mass/Vol] 35 mg/dL Low [facility] Comment on above: Result Comment: The drugs N-Acetylcysteine and Metamizole may falsely depress this assay. Reference Range HDL <40 mg/dL Low HDL Cholesterol HDL >or= 60 mg/dL High HDL Cholesterol Performed By: #### L 100.0100, L500.2500, L300.8000, L501.5425 #### [facility] [address] [place], [address] Cholesterol in LDL [Mass/Vol] 62 mg/dL Normal 0-130 [facility] Comment on above: Performed By: #### L 100.0100, L500.2500, L300.8000, L501.5425 #### [facility] [address] [place], [address] Cholesterol in VLDL [Mass/Vol] 70 mg/dL High 5-40 [facility] Comment on above: Performed By: #### L 100.0100, L500.2500, L300.8000, L501.5425 #### [facility] [address] [place], [address] Triglyceride [Mass/Vol] 349 mg/dL High [facility] Comment on above: Result Comment: The drugs N-Acetylcysteine and Metamizole may falsely depress this assay. Serum Triglycerides Reference Interval Normal <150 mg/dL Borderline high 150 - 199 mg/dL High 200 - 499 mg/dL Very High > or = 500 mg/dL Performed By: #### L 100.0100, L500.2500, L300.8000, L501.5425 #### [facility] [address] [facility] [place], [address] Lung Screeningon 02-11-[address] Lung Screening [facility] [address] [place], [place] [address] Low Dose CT Lung Screening MR#: [id number] Acct: [id number] Name: MARY NELSON Rep #: [id number] : 1970 M 53 From: Jerald Friedman MD PCP: Dr. Brennan Ty MD Status: [facility] Study: Low Dose CT Lung Screening Date of Exam: 02/10 Exam# [id number] Ordering Dr: Courtney Willingham RN LACTATION CONSULTANT RN LACTATION CONSULTANT-C [id number] EXAM: CT CHEST, LUNG CANCER SCREENING WITHOUT INTRAVENOUS CONTRAST CLINICAL INDICATION: screen TECHNIQUE: Helically acquired images were obtained of the chest without intravenous contrast using low dose (LDCT) lung cancer screening protocol. This CT exam was performed using one or more of the following dose reduction techniques: automated exposure control, adjustment of the mA and/or kV according to patient size, and/or use of iterative reconstruction technique. COMPARISON: CTA chest 12/06/2023 FINDINGS: LUNGS AND PLEURAL SPACES: Normal. No mass. No consolidation or edema. No pleural effusion or thickening. No pneumothorax. HEART: Normal. No pericardial effusion. Normal heart size. Coronary artery calcification and stents noted. MEDIASTINUM: Normal. No mediastinal or hilar adenopathy. Esophagus is unremarkable. No hiatal hernia. THYROID: Normal. No thyroid nodules or calcification. BONES/JOINTS: No suspicious lytic or blastic abnormality. VASCULATURE: No aortic aneurysm. LYMPH NODES: Normal. No enlarged lymph nodes. CT/Low Dose CT Lung Screening IMPRESSION: No acute lung mass or nodule. Lung-RADS score: 1 - Negative. Recommend continued annual screening with a low-dose CT (LDCT) in 12 months. Electronically Signed: Jerald Friedman MD at 15:34 EDT , CC: LOTTIE Willingham; Dr. 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 [address] Carotid Duplex Ultrasound 12/29/23 0835 MR#: [id number] Acct: [id number] Name: MARY NELSON Rep #: [id number] : 1970 53 From: Parker Leger MD Attending Dr: Janett Read NP-C Status: REG C LI Ordering Dr: Janett Read RN LACTATION CONSULTANT RN LACTATION CONSULTANT-C Date: 12/29/23 Location: [facility] Sex: M C Admitted: Reason For Study: Lightheadedness Rt. Velocities/BP Lt. Velocities/BP Prox CCA 64.5/14.7 cm/sec. Prox CCA 78.0/19.5 cm/sec. Mid CCA 63.8/15.4 cm/sec. Mid CCA 69.5/18.5 cm/sec. Dist CCA 60.2/16.1 cm/sec. Dist CCA 62.0/24.2 cm/sec. Prox ICA 57.4/14.7 cm/sec. Prox ICA 65.8/23.2 cm/sec. Mid ICA 43.8/17.5 cm/sec. Mid ICA 72.1/30.3 cm/sec. Dist ICA 53.8/16.8 cm/sec. Dist ICA 77.6/30.3 cm/sec. Rt. ICA/CCA = 1.3. Lt. ICA/CCA = 1.1. Prox ECA 90.4/16.7 cm/sec. Prox ECA 93.0/17.1 cm/sec. Rt. Vert. 46.0/16.8 cm/sec. Lt. Vert. 31.0/9.7 cm/sec. Right Extracranial There is intimal thickening but no significant atherosclerotic plaque noted in the right common carotid artery. There is heterogeneous, irregular atherosclerotic plaque noted in the right internal carotid artery. There is intimal thickening but no significant atherosclerotic plaque noted in the right external carotid artery. Antegrade flow is noted in the right vertebral artery. Left Extracranial There is homogeneous, smooth atherosclerotic plaque noted in the left common carotid artery. There is heterogeneous, irregular atherosclerotic plaque noted in the left internal carotid artery. There is intimal thickening but no significant atherosclerotic plaque noted in the left external carotid artery. Antegrade flow is noted in the left vertebral artery. Procedure Carotid Duplex 21362. This is a Carotid Duplex examination using B-mode, color flow and specral Doppler. The exam was diagnostic. Exam performed in department. VL/Carotid Duplex Ultrasound Interpretation Summary Mild (<50%) stenosis right extracranial internal carotid. Mild (<50%) stenosis left extracranial internal carotid. Patent and antegrade vertebrals bilaterally. Ordering Physician: Janett Read Referring Physician: Brennan Ty Performed By: Rich Rojas Ariadna 12/29/231831 Date Parker Leger MD CC: LOTTIE Read; Dr. 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 [address] US Art Duplex Unilat UP Extrem 12/29/23823 MR#: [id number] Acct: [id number] Name: MARY NELSON Rep #: [id number] : 1970 53 From: Parker Leger MD Attending Dr: Janett Read, RN LACTATION CONSULTANT-C Status: REG C Ordering Dr: Janett Read RN LACTATION CONSULTANT RN LACTATION CONSULTANT-C Date: 12/29/23 Location: [facility] Sex: M C Admitted: Reason For Study: Decreased Pulse post heart cath RIGHT Rt Radial Artery Distal measures 0.22 x 0.24cm Rt Radial Artery appears Triphasic Rt Radial Artery PSV = 50.5cm/s Rt Ulnar Artery Distal measures 0.22 x 0.22cm Rt Ulnar Artery appears Triphasic Rt Ulnar Artery PSV = 57.5cm/s Rt Cephalic V appears patent and compressible Rt Radial V appears patent and compressible No pseudoaneurysm visualized. /US Art Duplex Unilat UP Extrem Interpretation Summary Patent right upper extremity arteries with normal waveforms and velocities. No pseudoaneurysm or fistula identified Ordering Physician: Janett Read Referring Physician: Brennan Ty Performed By: Rich Rojas, T 12/29/231813 Date Parker Leger MD CC: RN LACTATION CONSULTANT-C Janett Read; Dr. 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 Brennan Ty MD DOS: 12/24/23 CR - History Physical General Arrival date:: 12/24/23 Arrival time:: 08:08 Date of Referral:: 12/11/23 Date of CR Evaluation:: 12/24/23 Referring Physician: Dr. Louis Primary Diagnosis: PCI with stent History of Present Cardiac Event Onset Date PTCA or coronary stenting:: Yes Vessel: RCA 12/06/23 onset Medications Ambulatory Orders ???Medication ???Instructions ???Recorded escitalopram oxalate 5 mg tablet 5 mg PO DAILY depression 04/21/15 fish oil-dha-epa 1,200 mg-144 1 each PO DAILY supplement 04/21/15 mg-216 mg capsule allopurinol 100 mg tablet 100 mg PO DAILY edema; uric acid 07/25/15 aspirin 81 mg tablet,delayed 81 mg PO DAILY@0800 health 05/01/18 release maintenance nitroglycerin 0.4 mg sublingual 0.4 mg sublingual Q5M PRN chest 06/09/20 tablet pain #25 tabs cyclobenzaprine 10 mg tablet 10 mg PO DAILY PRN Pain 1-10 Or 08/12/20 Fever meloxicam 7.5 mg tablet 7.5 mg PO PRN PAIN 08/12/20 esomeprazole magnesium 20 mg 20 mg PO DAILY #30 caps 02/25/22 capsule,delayed release (Nexium) gabapentin 600 mg tablet 600 mg PO BID 06/04/22 glimepiride 4 mg tablet 4 mg PO BID 06/04/22 tizanidine 4 mg tablet 4 mg PO QHS PRN muscle spasticity 06/04/22 vitamin B complex-vitamin C-folic 1 tab PO DAILY 06/04/22 acid 0.8 mg tablet (Otilia-Prema) cholecalciferol (vitamin D3) 25 25 mcg PO DAILY 12/31/22 mcg (1,000 unit) tablet (Vitamin D3) glucosamine sulfate 500 mg tablet 500 mg PO DAILY 07/09/23 (Glucosamine) isosorbide mononitrate 60 mg 60 mg PO DAILY #90 tabs 04/18/24 tablet,extended release 24 hr atorvastatin 80 mg tablet 80 mg PO QHS cholesterol #90 tabs 09/04/23 carvedilol 25 mg tablet (Coreg) 25 mg PO BID #180 tabs 09/04/23 lisinopril 5 mg tablet 5 mg PO DAILY 30 days #30 tabs 12/08/23 ticagrelor 90 mg tablet (Brilinta) 90 mg PO BID 30 days #180 tabs 12/17/23 Allergies Allergies sulfamethoxazole (From Bactrim) Allergy (Mild, Verified 12/17/23 10:12) Rash trimethoprim (From Bactrim) Allergy (Mild, Verified 12/17/23 10:12) Rash bupropion (From Wellbutrin) Adverse Reaction (Verified 12/17/23 10:12) Elevated BP Sleep Disorder Evaluation Hx of Sleep Apnea: No Do you snore loudly (louder than talking or can be heard through closed doors)?: Yes Do you often feel tired/ fatigued/ sleepy during daytime?: Yes Has anyone observed you stop breathing during sleep?: Yes History of Hypertension (for STOP score): Yes STOP Results: Positive Advanced Directives Advanced Directives Power of Media Center Specialist: No Living Will: Yes Advance Directives Information Provided: No Advance Directives on File: No DNR Order?:: No Past Medical History Covid-19 Screening Physicial Symptoms Other Clinical Concerns Exposure Risk Pertinent Comorbidities Has a serious heart condition:: Yes Diabetic:: Yes Past Medical Illness Past Medical History (Updated 12/17/23 @ 10:49 by Janett Read RN LACTATION CONSULTANT, RN LACTATION CONSULTANT-C) Heart attack I21.9 Wears glasses Z97.3 History of steroid therapy Z92.[address] MUNOZ Thyroid disease E07.9 SECONDARY PARATHYROIDISM Diabetes E11.9 History of renal disease Z87.448 CKD III Arthritis M19.90 High cholesterol E78.00 Easy bruising R23.3 ON PLAVIX Excessive bleeding R58 ON PLAVIX Back pain M54.9 SCIATIC TIA (transient ischemic attack) G45.9 2007-NO RESIDUAL Syncope R55 2018 X2 EPISODES- HE HAS NO REASON WHY Gastric reflux K21.9 Smoker F17.200 1PPD FOR 40+ YRS Shortness of breath on exertion R06.02 Chronic cough R05.3 SMOKER History of pain when walking Z87.898 History of stress test Z92.89 06/21/2022 History of echocardiogram Z92.89 10/01/2019 Cardiology follow-up encounter Z09 [facility], LAST VISIT 06/04/2022 History of heart attack I25.2 2019 Erectile dysfunction N52.9 Syncope R55 Nicotine dependence F17.[address] elevation myocardial infarction (STEMI) (09/29/16) I25.2 Sleep-disordered breathing G47.30 Diabetes mellitus type II, controlled E11.9 Essential hypertension I10 Neurogenic bladder N31.9 Chronic kidney disease, stage 3 (03/15/13) N18.3 Atherosclerosis of coronary artery of [place] heart without angina pectoris I25.10 NSVT (nonsustained ventricular tachycardia) I47.2 Chronic radicular lumbar pain M54.16, G89.29 Spinal stenosis of lumbar region M48.06 Osteoarthritis M19.90 Hyperlipidemia E78.5 Past Surgical History Surgical History History of lateral meniscus repair of right knee History of cardiac catheterization History of coronary art (more content not included)... Normal [facility] Basic Metabolic Profile (BMP )on 12-17-2023 BUN/CRE 9.5 RATIO Low 10-20 [facility] Comment on above: Performed By: #### L 100.0100, L500.2500, L300.8000, L501.5425 #### [facility] [address] [place], [address] CA,Total 9.6 mg/dL Normal 8.5-10.1 [facility] Comment on above: Performed By: #### L 100.0100, L500.2500, L300.8000, L501.5425 #### [facility] [address] [place], [address] Chloride [Moles/Vol] 106 mmol/L Normal 98-107 [facility] Comment on above: Performed By: #### L 100.0100, L500.2500, L300.8000, L501.5425 #### [facility] [address] [place], [address] CO2 [Moles/Vol] 29.0 mmol/L Normal 21.0-32.0 [facility] Comment on above: Performed By: #### L 100.0100, L500.2500, L300.8000, L501.5425 #### [facility] [address] [place], [address] Creatinine [Mass/Vol] 1.90 mg/dL High 0.70-1.30 [facility] Comment on above: Result Comment: The validity of the calculated GFR GFRAA in patients over 70 years has not been determined. Clinical correlation is essential. Performed By: #### L 100.0100, L500.2500, L300.8000, L501.5425 #### [facility] [address] [place], [address] EST GFR - AA 48 mL/min Low >60 [facility] Comment on above: Result Comment: Afri can [place] GFR Calc Performed By: #### L 100.0100, L500.2500, L300.8000, L501.5425 #### [facility] [address] [place], [address] GAP 4 Low 5-15 [facility] Comment on above: Performed By: #### L 100.0100, L500.2500, L300.8000, L501.5425 #### [facility] [address] [place], [address] GFR/1.73 sq M.predicted among non-blacks MDRD (S/P/Bld) [Vol rate/Area] 39 mL/min/{1.73_m2} Low >60 [facility] Comment on above: Result Comment: Non- GFR Calc Performed By: #### L 100.0100, L500.2500, L300.8000, L501.5425 #### [facility] [address] [place], [address] Glucose [Mass/Vol] 154 mg/dL High 74-106 [facility] Comment on above: Result Comment: Fast ing Glucose result greater than or equal to 126 mg/dL suggests DIABETES MELLITUS per A.D.A. criteria. Performed By: #### L 100.0100, L500.2500, L300.8000, L501.5425 #### [facility] [address] [place], [address] Potassium [Moles/Vol] 4.3 mmol/L Normal 3.5-5.1 [facility] Comment on above: Performed By: #### L 100.0100, L500.2500, L300.8000, L501.5425 #### [facility] [address] [place], [address] Sodium [Moles/Vol] 139 mmol/L Normal 136-145 [facility] Comment on above: Performed By: #### L 100.0100, L500.2500, L300.8000, L501.5425 #### [facility] [address] [place], [address] Urea nitrogen [Mass/Vol] 18 mg/dL Normal 7-18 [facility] Comment on above: Performed By: #### L 100.0100, L500.2500, L300.8000, L501.5425 #### [facility] [address] [place], [address] CBC W/Diff, Automatedon 12-03 Absolute Lymph 1.67 X10 3/uL Normal 0.83-4.51 [facility] Comment on above: Performed By: #### L 100.0100, L500.2500, L300.8000, L501.5425 #### [facility] [address] [place], [address] Absolute Neut 5.1 X10 3/uL Normal 2.0-7.7 [facility] Comment on above: Performed By: #### L 100.0100, L500.2500, L300.8000, L501.5425 #### [facility] [address] [place], [address] Basophils/100 WBC (Bld) 0.9 % Normal 0-1 [facility] Comment on above: Performed By: #### L 100.0100, L500.2500, L300.8000, L501.5425 #### [facility] [address] [place], [address] Eosinophils/100 WBC (Bld) 3.7 % Normal 0-5 [facility] Comment on above: Performed By: #### L 100.0100, L500.2500, L300.8000, L501.5425 #### [facility] [address] [place], [address] Erythrocyte distribution width (RBC) [Ratio] 12.9 % Normal 11.6-14.6 [facility] Comment on above: Performed By: #### L 100.0100, L500.2500, L300.8000, L501.5425 #### [facility] [address] [place], [address] Hematocrit (Bld) [Volume fraction] 44.4 % Normal 40-54 [facility] Comment on above: Performed By: #### L 100.0100, L500.2500, L300.8000, L501.5425 #### [facility] [address] [place], [address] Hemoglobin (Bld) [Mass/Vol] 14.6 g/dL Normal 13.0-16.5 [facility] Comment on above: Performed By: #### L 100.0100, L500.2500, L300.8000, L501.5425 #### [facility] [address] [place], [address] IG% 1.000 High 0.0-0.9 [facility] Comment on above: Result Comment: IG% - Immature Granulocytes (promyelocytes, myelocytes and metamyelocytes) > 1% indicates that a LEFT SHIFT is Present. Performed By: #### L 100.0100, L500.2500, L300.8000, L501.5425 #### [facility] [address] [place], [address] Lymphocytes/100 WBC (Bld) 21.2 % Normal 19-41 [facility] Comment on above: Performed By: #### L 100.0100, L500.2500, L300.8000, L501.5425 #### [facility] [address] [place], [address] MCH (RBC) [Entitic mass] 29.5 pg Normal 27.0-32.0 [facility] Comment on above: Performed By: #### L 100.0100, L500.2500, L300.8000, L501.5425 #### [facility] [address] [place], [address] MCHC (RBC) [Mass/Vol] 32.9 g/dL Normal 32-36 [facility] Comment on above: Performed By: #### L 100.0100, L500.2500, L300.8000, L501.5425 #### [facility] [address] [place], [address] MCV (RBC) [Entitic vol] 89.7 fL Normal 80-94 [facility] Comment on above: Performed By: #### L 100.0100, L500.2500, L300.8000, L501.5425 #### [facility] [address] [place], [address] Monocytes/100 WBC (Bld) 8.5 % Normal 0-10 [facility] Comment on above: Performed By: #### L 100.0100, L500.2500, L300.8000, L501.5425 #### [facility] [address] [place], [address] Neutrophils/100 WBC (Bld) 64.7 % Normal 47-70 [facility] Comment on above: Performed By: #### L 100.0100, L500.2500, L300.8000, L501.5425 #### [facility] [address] [place], [address] Nucleated RBC (Bld) [#/Vol] 0 10*3/uL Normal 0-5 [facility] Comment on above: Performed By: #### L 100.0100, L500.2500, L300.8000, L501.5425 #### [facility] [address] [place], [address] Platelet mean volume (Bld) [Entitic vol] 9.5 fL Normal 6.2-12.0 [facility] Comment on above: Performed By: #### L 100.0100, L500.2500, L300.8000, L501.5425 #### [facility] [address] [place], [address] Platelets (Bld) [#/Vol] 246 10*3/uL Normal 150-450 [facility] Comment on above: Performed By: #### L 100.0100, L500.2500, L300.8000, L501.5425 #### [facility] [address] [place], [address] RBC (Bld) [#/Vol] 4.95 10*6/uL Normal 4.6-6.[address] [facility] Comment on above: Performed By: #### L 100.0100, L500.2500, L300.8000, L501.5425 #### [facility] [address] [place], [address] RDW SD 42.1 fl Normal 35.1-43.9 [facility] Comment on above: Performed By: #### L 100.0100, L500.2500, L300.8000, L501.5425 #### [facility] [address] [place], [address] WBC (Bld) [#/Vol] 7.9 10*3/uL Normal 4.4-11.0 [facility] Comment on above: Performed By: #### L 100.0100, L500.2500, L300.8000, L501.5425 #### [facility] [address] [place], [address] Cardiology Visit Reporton Cardiology Visit Report [facility] [address] [place] [address] OFFICE VISIT Date of Service: 12/17/23 MR#: [id number] Acct: [id number] Name: MARY NELSON Rep #: [id number] : 1970 Provider: LOTTIE Vazquez rts Age/Sex: 53/M Location: [facility] Status: Signed HPI HPI History of Present Illness Details: This is a 53-year-old gentleman who presents here today for a cardiovascular follow-up. He has a history of coronary artery disease. In September 2016 he had a STEMI and underwent stenting to his left circumflex. In October 2019 he presented to the emergency room with chest discomfort. He underwent stenting to his RCA. He had a stress echocardiogram which was negative for ischemia. He also has a history of NSVT, hypertension, hyperlipidemia, stage 3 kidney disease, moderate bilateral hydronephrosis in which he needs to self cath, pancreatitis, diabetes, history of acute pancreatitis, obstructive sleep apnea and tobacco abuse. He also has a history of diabetes. Patient presented to the emergency room on 12/06/2023 with complaints of chest pain. He did have EKG changes, and elevated troponin. He underwent a cardiac catheterization which demonstrated 99% stenosis of his RCA. He did undergo successful drug-eluting stent to his RCA. His echocardiogram on 12/06/2023 demonstrated ejection fraction of 55%. From a cardiac standpoint, the patient is doing well. He denies any palpitations, chest pain, pressure or heaviness. He does not have SOB, Orthopnea, and PND. He does not have bleeding issues; no blood in urine, stool or nosebleeds. He does have intermittent fatigue, decreased energy. He denies myalgias, or claudication. He does not have edema, or sudden weight gain. He does have occasional lightheadedness. He denies dizziness, syncopal or near syncopal episodes, and headaches. He does acknowledge pain in his right wrist, with bruising. He is planning on participating in cardiac rehab. Intake Vital Signs 12/07/23 10:05 12/17/23 09:56 Height 6 ft 0.83 in 6 ft 0.83 in Weight: 216 lb BMI 28.6 BP 131/98 H Blood Pressure Location Lt brachial Position Sitting Respiration 18 Pulse 72 Pulse Source Monitor Pulse Oximetry (%) 95 Intake Visit Reasons: S/P [facility] 12/07 STEMI Regional Controller Required: No Is patient in pain?: No Allergies sulfamethoxazole (From Bactrim) Allergy (Mild, Verified 12/17/23 10:12) Rash trimethoprim (From Bactrim) Allergy (Mild, Verified 12/17/23 10:12) Rash bupropion (From Wellbutrin) Adverse Reaction (Verified 12/17/23 10:12) Elevated BP Medications ???Medication ???Instructions ???Recorded ???Confirmed ???Type escitalopram oxalate 5 mg tablet 5 mg PO DAILY depression 04/21/15 12/17/23 History fish oil-dha-epa 1,200 mg-144 1 each PO DAILY supplement 04/21/15 12/17/23 History mg-216 mg capsule allopurinol 100 mg tablet 100 mg PO DAILY edema; uric acid 07/25/15 12/17/23 History aspirin 81 mg tablet,delayed 81 mg PO DAILY@0800 health 05/01/18 12/17/23 History release maintenance nitroglycerin 0.4 mg sublingual 0.4 mg sublingual Q5M PRN chest 06/09/20 12/17/23 Rx tablet pain #25 tabs cyclobenzaprine 10 mg tablet 10 mg PO DAILY PRN Pain 1-10 Or 08/12/20 12/17/23 History Fever meloxicam 7.5 mg tablet 7.5 mg PO PRN PAIN 08/12/20 12/17/23 History esomeprazole magnesium 20 mg 20 mg PO DAILY #30 caps 02/25/22 12/17/23 Rx capsule,delayed release (Nexium) gabapentin 600 mg tablet 600 mg PO BID 06/04/22 12/17/23 History glimepiride 4 mg tablet 4 mg PO BID 06/04/22 12/17/23 History tizanidine 4 mg tablet 4 mg PO QHS PRN muscle spasticity 06/04/22 12/17/23 History vitamin B complex-vitamin C-folic 1 tab PO DAILY 06/04/22 12/17/23 History acid 0.8 mg tablet (Otilia-Prema) cholecalciferol (vitamin D3) 25 25 mcg PO DAILY 12/31/22 12/17/23 History mcg (1,000 unit) tablet (Vitamin D3) glucosamine sulfate 500 mg tablet 500 mg PO DAILY 07/09/23 12/17/23 History (Glucosamine) isosorbide mononitrate 60 mg 60 mg PO DAILY #90 tabs 08/21/23 12/17/23 Rx tablet,extended release 24 hr atorvastatin 80 mg tablet 80 mg PO QHS cholesterol #90 tabs 09/04/23 12/17/23 Rx carvedilol 25 mg tablet (Coreg) 25 mg PO BID #180 tabs 09/04/23 12/17/23 Rx lisinopril 5 mg tablet 5 mg PO DAILY 30 days #30 tabs 12/08/23 12/17/23 Rx ticagrelor 90 mg tablet (Brilinta) 90 mg PO BID 30 days #180 tabs 12/17/23 12/17/23 Rx [facility] Medical History (Updated 12/17/23 @ 10:49 by Janett Read NP, RN LACTATION CONSULTANT-C) Heart attack Wears glasses History of steroid therapy Thyroid disease Diabetes History of renal disease Arthritis High cholesterol Easy bruising Excessive bleeding Back pain TIA (transient ischemic attack) Syncope Gastric reflux Smoker Shortness of breath on exertion Chronic coug (more content not included)... Normal [facility] Thyroid Stim Hormone (TSH)on 12-17-2023 TSH 1.210 uIU/mL Normal 0.358-3.740 [facility] Comment on above: Performed By: #### L 100.0100, L500.2500, L300.8000, L501.5425 #### [facility] [place], [address] 12 Lead EKGon 12-08-2023 12 Lead EKG [facility] Cardiovascular Services [address] [place] [address] 12 Lead EKG 12/07/23 0541 MR#: [id number] Acct: [id number] Name: MARY NELSON Rep #: [id number] : 1970 53 From: Lamont Martel MD Attending Dr: Dr. Anant Angeles DO Status : DIS IN Ordering Dr: Kolton Lange MD Date: 12/08/23 Location: ICU Sex: M C Admitted: 12/06/23 Test Reason : AM EKG Blood Pressure : / mmHG Vent. Rate : 079 BPM Atrial Rate : 079 BPM P-R Int : 162 ms QRS Dur : 088 ms QT Int : 372 ms P-R-T Axes : 049 041 052 degrees QTc Int : 426 ms Normal sinus rhythm Normal ECG When compared with ECG of 06-DEC-2023 09:32, MANUAL COMPARISON REQUIRED, DATA IS UNCONFIRMED Confirmed by Lamont Martel ([id number]), editor greeting card EZEQUIEL LUDWIG ([id number]) on 12/09/2023 2:13:11 PM Referred By: Kolton Lange Confirmed By:Lamont Martel 12/09/23 1413 Date Lamont Martel MD CC: Dr. Anant Angeles DO; Dr. Kolton Lange MD; Dr. Brennan Ty MD Signed Normal [facility] Basic Metabolic Profile (BMP )on 12-08-2023 BUN/CRE 9.2 RATIO Low 10-20 [facility] Comment on above: Performed By: #### L 9100.0100 #### [facility] [address] [place], [address] CA,Total 8.6 mg/dL Normal 8.5-10.1 [facility] Comment on above: Performed By: #### L 9100.0100 #### [facility] [address] [place], [address] Chloride [Moles/Vol] 109 mmol/L High 98-107 [facility] Comment on above: Performed By: #### L 00.0100 #### [facility] [address] [place], [address] CO2 [Moles/Vol] 26.0 mmol/L Normal 21.0-32.0 [facility] Comment on above: Performed By: #### L 9099.0100 #### [facility] [address] [place], [address] Creatinine [Mass/Vol] 1.53 mg/dL High 0.70-1.30 [facility] Comment on above: Result Comment: The validity of the calculated GFR GFRAA in patients over 70 years has not been determined. Clinical correlation is essential. Performed By: #### L 00.0100 #### [facility] [address] [place], [address] ECRCL 66.48 ml/min Normal [facility] Comment on above: Performed By: #### L 00.0100 #### [facility] [address] [place], [address] EST GFR - AA 61 mL/min Normal >60 [facility] Comment on above: Result Comment: Afri can [place] GFR Calc Performed By: #### L 00.0100 #### [facility] [address] [place], [address] GAP 4 Low 5-15 [facility] Comment on above: Performed By: #### L 9100.0100 #### [facility] [address] [place], [address] GFR/1.73 sq M.predicted among non-blacks MDRD (S/P/Bld) [Vol rate/Area] 50 mL/min/{1.73_m2} Low >60 [facility] Comment on above: Result Comment: Non- GFR Calc Performed By: #### L 9100.0100 #### [facility] [address] [place], [address] Glucose [Mass/Vol] 187 mg/dL High 74-106 [facility] Comment on above: Result Comment: Fast ing Glucose result greater than or equal to 126 mg/dL suggests DIABETES MELLITUS per A.D.A. criteria. Performed By: #### L 9100.0100 #### [facility] [address] [place], [address] Potassium [Moles/Vol] 3.5 mmol/L Normal 3.5-5.1 [facility] Comment on above: Performed By: #### L 9100.0100 #### [facility] [address] [place], [address] Sodium [Moles/Vol] 139 mmol/L Normal 136-145 [facility] Comment on above: Performed By: #### L 9100.0100 #### [facility] [address] [place], [address] Urea nitrogen [Mass/Vol] 14 mg/dL Normal 7-18 [facility] Comment on above: Performed By: #### L 9100.0100 #### [facility] [address] [place], [address] Discharge Instructionon Discharge Instruction [facility] Medical Records Department [address] [place] [address] Instructions for Home/Discharge Instructions 12/08/23 1232 MR#: [id number] Acct: [id number] Name: MARY NELSON Rep #: [id number] : 1970 53 From: Anant Angeles DO PCP: Dr. Brennan Ty MD Status:ADM IN Discharge Instructions Diet Discharge Diet: No restrictions Activity Discharge Activity: No Restrictions Follow Up Care Test Results: Test results from this visit will be discussed in further detail at your follow-up appointment, if applicable. Discharge Plan Admission Admit Date/Time: 12/06/23 13:45 Primary Reason for Your Visit: chest pain Attending Provider: Anant Angeles Primary Care Provider: Brennan Ty Consulting Providers: Kolton Lange; Anant Angeles Instructions Additional Instructions / Restrictions: Please start taking Brilinta twice daily and lisinopril once daily going forward. He will not be taking Plavix or Lasix going forward. The cardiology office will call to schedule a follow-up appointment for you in the next 7 to 10 days. Discharge Orders/Prescriptions Prescriptions: New lisinopril 5 mg Tablet 5 mg PO DAILY 30 Days Qty: 30 2RF Brilinta 90 mg Tablet 90 mg PO BID 30 Days Qty: 60 2RF Continued tizanidine 4 mg tablet 4 mg PO QHS PRN (Reason: muscle spasticity) gabapentin 600 mg tablet 600 mg PO BID glimepiride 4 mg tablet 4 mg PO BID Otilia-Prema 0.8 mg tablet 1 tab PO DAILY Patient Comments: TAKE 1 TABLET BY MOUTH ONCE DAILY glucosamine sulfate [Glucosamine] 500 mg tablet 500 mg PO DAILY Rx Instructions: administer with a meal fish oil-dha-epa 1 EACH capsule 1 each PO DAILY Patient Comments: SUPPLEMENT escitalopram oxalate 5 MG tablet 5 mg PO DAILY Patient Comments: DEPRESSION allopurinol 100 MG tablet 100 mg PO DAILY Patient Comments: ANTI-GOUT aspirin 81 MG tablet 81 mg PO DAILY@0800 cyclobenzaprine 10 MG tablet 10 mg PO DAILY PRN (Reason: Pain 1-10 Or Fever) meloxicam 7.5 MG tablet 7.5 mg PO PRN cholecalciferol (vitamin D3) [Vitamin D3] 25 mcg (1,000 unit) tablet 25 mcg PO DAILY nitroglycerin 0.4 mg tablet, sublingual 0.4 mg SL Q5M PRN (Reason: chest pain) Qty: 25 3RF Rx Instructions: do not exceed 3 doses per episode esomeprazole magnesium [Nexium] 20 mg capsule,delayed release(DR/EC) 20 mg PO DAILY Qty: 30 11RF isosorbide mononitrate 60 mg tablet extended release 24 hr 60 mg PO DAILY Qty: 90 3RF atorvastatin 80 mg tablet 80 mg PO QHS Qty: 90 3RF carvedilol [Coreg] 25 mg tablet 25 mg PO BID Qty: 180 3RF Rx Instructions: must administer with a meal/food Discontinued hydrocodone-acetaminophe n 5-325 mg tablet PO trimethoprim 100 mg tablet 100 mg PO QODAY PRN (Reason: antibiotic) Rx Instructions: (DME) catheter 14-6 Fr- Misc MISCELLANEOUS clopidogrel 75 mg tablet 75 mg PO DAILY Qty: 90 3RF Rx Instructions: TAKE 1 TABLET EVERY DAY FOR ANTI PLATELET furosemide 20 mg tablet See Rx Instructions .ROUTE .COMPLEX Qty: 90 3RF Dose Instruction: TAKE 1 TABLET DAILY Rx Instructions: TAKE 1 TABLET DAILY Referrals / Follow Up: Brennan Ty MD [Primary Care Provider] - Disposition Disposition (needs filled in before D/C Order can be placed): Home, Self Care 12/08/23 1401 Anant Angeles DO CC: Dr. Anant Angeles DO; Dr. Kolton Lange MD; Dr. Brennan Ty MD Signed [facility] 12 Lead EKGon 12-07-2023 12 Lead EKG [facility] Cardiovascular Services [address] [place] [address] 12 Lead EKG 12/06/23 1122 MR#: [id number] Acct: [id number] Name: MARY NELSON Rep #: [id number] : 1970 53 From: Lamont Martel MD Attending Dr: Dr. Anant Angeles DO Status : DIS IN Ordering Dr: Kolton Lange MD Date: 12/07/23 Location: ICU Sex: M C Admitted: 12/06/23 Test Reason : STEMI Blood Pressure : / mmHG Vent. Rate : 072 BPM Atrial Rate : 072 BPM P-R Int : 180 ms QRS Dur : 090 ms QT Int : 378 ms P-R-T Axes : 018 058 056 degrees QTc Int : 413 ms Normal sinus rhythm Normal ECG When compared with ECG of 06-DEC-2023 09:32, MANUAL COMPARISON REQUIRED, DATA IS UNCONFIRMED Confirmed by Lamont Martel ([id number]), editor greeting card EZEQUIEL LUDWIG ([id number]) on 12/09/2023 2:13:20 PM Referred By: Kolton Lange Confirmed By:Lamont Martel 12/09/23 1413 Date Lamont Martel MD CC: Dr. Anant Angeles DO; Dr. Kolton Lange MD; Dr. Brennan Ty MD Signed Normal [facility] Basic Metabolic Profile (BMP )on 12-07-2023 BUN/CRE 8.1 RATIO Low 10-20 [facility] Comment on above: Performed By: #### L 9100.0100 #### [facility] [address] [place], [address] CA,Total 8.5 mg/dL Normal 8.5-10.1 [facility] Comment on above: Performed By: #### L 9100.0100 #### [facility] [address] [place], [address] Chloride [Moles/Vol] 112 mmol/L High 98-107 [facility] Comment on above: Performed By: #### L 9100.0100 #### [facility] [address] [place], [address] CO2 [Moles/Vol] 27.0 mmol/L Normal 21.0-32.0 [facility] Comment on above: Performed By: #### L 9100.0100 #### [facility] [address] [place], [address] Creatinine [Mass/Vol] 1.61 mg/dL High 0.70-1.30 [facility] Comment on above: Result Comment: The validity of the calculated GFR GFRAA in patients over 70 years has not been determined. Clinical correlation is essential. Performed By: #### L 9100.0100 #### [facility] [address] [place], [address] ECRCL 63.71 ml/min Normal [facility] Comment on above: Performed By: #### L 9100.0100 #### [facility] [address] [place], [address] EST GFR - AA 58 mL/min Low >60 [facility] Comment on above: Result Comment: Afri can [place] GFR Calc Performed By: #### L 9100.0100 #### [facility] [address] [place], [address] GAP 3 Low 5-15 [facility] Comment on above: Performed By: #### L 9099.0100 #### [facility] [address] [place], [address] GFR/1.73 sq M.predicted among non-blacks MDRD (S/P/Bld) [Vol rate/Area] 48 mL/min/{1.73_m2} Low >60 [facility] Comment on above: Result Comment: Non- GFR Calc Performed By: #### L 00.0100 #### [facility] [address] [place], [address] Glucose [Mass/Vol] 122 mg/dL High 74-106 [facility] Comment on above: Result Comment: Fast ing Glucose result from 100 to 125 mg/dL suggests IMPAIRED HOMEOSTASIS per A.D.A. criteria. Performed By: #### L 9100.0100 #### [facility] [address] [place], [address] Potassium [Moles/Vol] 3.6 mmol/L Normal 3.5-5.1 [facility] Comment on above: Performed By: #### L 9100.0100 #### [facility] [address] [place], [address] Sodium [Moles/Vol] 142 mmol/L Normal 136-145 [facility] Comment on above: Performed By: #### L 9100.0100 #### [facility] [address] [place], [address] Urea nitrogen [Mass/Vol] 13 mg/dL Normal 7-18 [facility] Comment on above: Performed By: #### L 9100.0100 #### [facility] [address] [place], [address] CBC[facility] Erythrocyte distribution width (RBC) [Ratio] 13.0 % Normal 11.6-14.6 [facility] Comment on above: Performed By: #### L 00.0100 #### [facility] [address] [place], [address] Hematocrit (Bld) [Volume fraction] 42.9 % Normal 40-54 [facility] Comment on above: Performed By: #### L 9099.0100 #### [facility] [address] [place], [address] Hemoglobin (Bld) [Mass/Vol] 14.3 g/dL Normal 13.0-16.5 [facility] Comment on above: Performed By: #### L 9099.0100 #### [facility] [address] [place], [address] MCH (RBC) [Entitic mass] 30.4 pg Normal 27.0-32.0 [facility] Comment on above: Performed By: #### L 9100.0100 #### [facility] [address] [place], [address] MCHC (RBC) [Mass/Vol] 33.3 g/dL Normal 32-36 [facility] Comment on above: Performed By: #### L 00.0100 #### [facility] [address] [place], [address] MCV (RBC) [Entitic vol] 91.1 fL Normal 80-94 [facility] Comment on above: Performed By: #### L 00.0100 #### [facility] [address] [place], [address] Platelet mean volume (Bld) [Entitic vol] 9.0 fL Normal 6.2-12.0 [facility] Comment on above: Performed By: #### L 9100.0100 #### [facility] [address] [place], [address] Platelets (Bld) [#/Vol] 190 10*3/uL Normal 150-450 [facility] Comment on above: Performed By: #### L 9100.0100 #### [facility] [address] [place], [address] RBC (Bld) [#/Vol] 4.71 10*6/uL Normal 4.6-6.[address] [facility] Comment on above: Performed By: #### L 9099.0100 #### [facility] [address] [place], [address] RDW SD 43.5 fl Normal 35.1-43.9 [facility] Comment on above: Performed By: #### L 9099.0100 #### [facility] [address] [place], [address] WBC (Bld) [#/Vol] 8.7 10*3/uL Normal 4.4-11.0 [facility] Comment on above: Performed By: #### L 00.0100 #### [facility] [address] [place], [address] Comprehensive Metabolic Prof [facility] 12-07-2023 Albumin [Mass/Vol] 3.1 g/dL Low 3.2-5.0 [facility] Comment on above: Performed By: #### L 9100.0100 #### [facility] [address] [place], [address] Albumin/Globulin [Mass ratio] 1.0 {ratio} Normal 0.9-2.4 [facility] Comment on above: Performed By: #### L 9100.0100 #### [facility] [address] [place], [address] ALK P 73 U/L Normal 45-117 [facility] Comment on above: Performed By: #### L 9100.0100 #### [facility] [address], [address] ALT [Catalytic activity/Vol] 41 U/L Normal 16-61 [facility] Comment on above: Performed By: #### L 9100.0100 #### [facility] [address] [place], [address] AST [Catalytic activity/Vol] 26 U/L Normal 15-37 [facility] Comment on above: Performed By: #### L 9100.0100 #### [facility] [address] [place], [address] Bilirubin [Mass/Vol] 0.20 mg/dL Normal 0.20-1.00 [facility] Comment on above: Result Comment: For patients on eltrombopag therapy, use of Dimension [place] TBIL is not recommended. Performed By: #### L 9100.0100 #### [facility] [address] [place], [address] Globulin (S) [Mass/Vol] 3.0 g/dL Normal 2.2-4.2 [facility] Comment on above: Performed By: #### L 9100.0100 #### [facility] [address] [place], [address] T PROT 6.1 g/dL Low 6.4-8.2 [facility] Comment on above: Performed By: #### L 9100.0100 #### [facility] [address] [place], [address] 12 Lead EKGon 12-06-2023 12 Lead EKG [facility] Cardiovascular Services [address] [place] [address] 12 Lead EKG 12/06/23 0923 MR#: [id number] Acct: [id number] Name: MARY NELSON Rep #: [id number] : 1970 53 From: Lamont Martel MD Attending Dr: Dr. Anant Angeles DO Status : ADM IN Ordering Dr: Jb Smith MD Date: 12/06/23 Location: ICU Sex: M C Admitted: 12/06/23 Test Reason : REPEAT-CP Blood Pressure : / mmHG Vent. Rate : 054 BPM Atrial Rate : 054 BPM P-R Int : 154 ms QRS Dur : 090 ms QT Int : 424 ms P-R-T Axes : 041 048 081 degrees QTc Int : 402 ms Sinus bradycardia Otherwise normal ECG Confirmed by Lamont Martel ([id number]), editor greeting card BRETT BOWERS ([id number]) on 12/08/2023 2:12:06 PM Referred By: Kolton Lange Confirmed By:Lamont Martel 12/08/23 1412 Date Lamont Martel MD CC: Dr. Jb Smith MD; Dr. Anant Angeles DO; Dr. Kolton Lange MD; Dr. Brennan Ty MD Signed Normal [facility] 12 Lead EKG [facility] Cardiovascular Services [address] [place] [address] 12 Lead EKG 12/06/23 0932 MR#: [id number] Acct: [id number] Name: MARY NELSON Rep #: [id number] : 1970 53 From: Lamont Martel MD Attending Dr: Dr. Anant Angeles DO Status : ADM IN Ordering Dr: Jb Smith MD Date: 12/06/23 Location: ICU Sex: M C Admitted: 12/06/23 Test Reason : Blood Pressure : / mmHG Vent. Rate : 062 BPM Atrial Rate : 062 BPM P-R Int : 160 ms QRS Dur : 088 ms QT Int : 412 ms P-R-T Axes : 033 046 087 degrees QTc Int : 418 ms Critical Test Result: STEMI Normal sinus rhythm ST elevation consider inferior injury or acute infarct ACUTE MO / STEMI Consider right ventricular involvement in acute inferior infarct Abnormal ECG Confirmed by Lamont Martel ([id number]), editor greeting card BRETT BOWERS ([id number]) on 12/08/2023 2:13:32 PM Referred By: Kolton Lange Confirmed By:Lamont Martel 12/08/23 1413 Date Lamont Martel MD CC: Dr. Jb Smith MD; Dr. Anant Angeles DO; Dr. Kolton Lange MD; Dr. Brennan Ty MD Signed [facility] 12 Lead EKG [facility] Cardiovascular Services [address] [place] [address] 12 Lead EKG 12/06/23 0745 MR#: [id number] Acct: [id number] Name: MARY NELSON Rep #: [id number] : 1970 53 From: Lamont Martel MD Attending Dr: Dr. Anant Angeles DO Status : ADM IN Ordering Dr: Jb Smith MD Date: 12/06/23 Location: ICU Sex: M C Admitted: 12/06/23 Test Reason : Blood Pressure : / mmHG Vent. Rate : 061 BPM Atrial Rate : 061 BPM P-R Int : 166 ms QRS Dur : 086 ms QT Int : 396 ms P-R-T Axes : 059 054 071 degrees QTc Int : 398 ms Normal sinus rhythm Normal ECG Confirmed by Lamont Martel ([id number]), editor greeting card BRETT BOWERS ([id number]) on 12/08/2023 2:12:44 PM Referred By: Kolton Lange Confirmed By:Lamont Martel 12/08/23 1412 Date Lamont Martel MD CC: Dr. Jb Smith MD; Dr. Anant Angeles DO; Dr. Kolton Lange MD; Dr. Brennan Ty MD Signed Normal [facility] ACT Activated Clotting Timeo n 12-06-2023 ACTk CLOT TIME 342 sec High 74-137 [facility] Comment on above: Performed By: #### L 9100.0100 #### [facility] [address] [place], [address] ACTk CLOT TIME 220 sec High 74-137 [facility] Comment on above: Performed By: #### L 100.0100, L500.2500, L300.8000, L501.5425 #### [facility] [address] [place], [address] Basic Metabolic Profile (BMP )on 12-06-2023 BUN/CRE 8.6 RATIO Low 10-20 [facility] Comment on above: Order Comment: 1 Y Performed By: #### L 100.0100, L500.2500, L300.8000, L501.5425 #### [facility] [address] [place], [address] CA,Total 9.1 mg/dL Normal 8.5-10.1 [facility] Comment on above: Order Comment: 1 Y Performed By: #### L 100.0100, L500.2500, L300.8000, L501.5425 #### [facility] [address] [place], [address] Chloride [Moles/Vol] 111 mmol/L High 98-107 [facility] Comment on above: Order Comment: 1 Y Performed By: #### L 100.0100, L500.2500, L300.8000, L501.5425 #### [facility] [address] [place], [address] CO2 [Moles/Vol] 27.0 mmol/L Normal 21.0-32.0 [facility] Comment on above: Order Comment: 1 Y Performed By: #### L 100.0100, L500.2500, L300.8000, L501.5425 #### [facility] [address] [place], [address] Creatinine [Mass/Vol] 1.85 mg/dL High 0.70-1.30 [facility] Comment on above: Order Comment: 1 Y Result Comment: The validity of the calculated GFR GFRAA in patients over 70 years has not been determined. Clinical correlation is essential. Performed By: #### L 100.0100, L500.2500, L300.8000, L501.5425 #### [facility] [address] [place], [address] ECRCL 56.32 ml/min Normal [facility] Comment on above: Order Comment: 1 Y Performed By: #### L 100.0100, L500.2500, L300.8000, L501.5425 #### [facility] [address] [place], [address] EST GFR - AA 49 mL/min Low >60 [facility] Comment on above: Order Comment: 1 Y Result Comment: Afri can [place] GFR Calc Performed By: #### L 100.0100, L500.2500, L300.8000, L501.5425 #### [facility] [address] [place], [address] GAP 1 Low 5-15 [facility] Comment on above: Order Comment: 1 Y Performed By: #### L 100.0100, L500.2500, L300.8000, L501.5425 #### [facility] [address] [place], [address] GFR/1.73 sq M.predicted among non-blacks MDRD (S/P/Bld) [Vol rate/Area] 41 mL/min/{1.73_m2} Low >60 [facility] Comment on above: Order Comment: 1 Y Result Comment: Non- GFR Calc Performed By: #### L 100.0100, L500.2500, L300.8000, L501.5425 #### [facility] [address] [place], [address] Glucose [Mass/Vol] 163 mg/dL High 74-106 [facility] Comment on above: Order Comment: 1 Y Result Comment: Fast ing Glucose result greater than or equal to 126 mg/dL suggests DIABETES MELLITUS per A.D.A. criteria. Performed By: #### L 100.0100, L500.2500, L300.8000, L501.5425 #### [facility] [address] [place], [address] Potassium [Moles/Vol] 3.6 mmol/L Normal 3.5-5.1 [facility] Comment on above: Order Comment: 1 Y Performed By: #### L 100.0100, L500.2500, L300.8000, L501.5425 #### [facility] [address] [place], [address] Sodium [Moles/Vol] 139 mmol/L Normal 136-145 [facility] Comment on above: Order Comment: 1 Y Performed By: #### L 100.0100, L500.2500, L300.8000, L501.5425 #### [facility] [address] [place], [address] Urea nitrogen [Mass/Vol] 16 mg/dL Normal 7-18 [facility] Comment on above: Order Comment: 1 Y Performed By: #### L 100.0100, L500.2500, L300.8000, L501.5425 #### [facility] [address] [place], [address] Bedside Glucoseon 12-06-2023 FINGERSTICK GLU 181 mg/dL High 74-106 [facility] Comment on above: Result Comment: FADUMO HAND OF PATIENT CARE PER NURSING PROTOCOL Performed By: #### L 501.080 #### [facility] [address] [place], [address] CBC W/Diff, Automatedon Absolute Lymph 2.64 X10 3/uL Normal 0.83-4.51 [facility] Comment on above: Performed By: #### L 100.0100, L500.2500, L300.8000, L501.5425 #### [facility] [address] [place], [address] Absolute Neut 4.4 X10 3/uL Normal 2.0-7.7 [facility] Comment on above: Performed By: #### L 100.0100, L500.2500, L300.8000, L501.5425 #### [facility] [address] [place], [address] Basophils/100 WBC (Bld) 0.7 % Normal 0-1 [facility] Comment on above: Performed By: #### L 100.0100, L500.2500, L300.8000, L501.5425 #### [facility] [address] [place], [address] Eosinophils/100 WBC (Bld) 3.6 % Normal 0-5 [facility] Comment on above: Performed By: #### L 100.0100, L500.2500, L300.8000, L501.5425 #### [facility] [address] [place], [address] Erythrocyte distribution width (RBC) [Ratio] 12.8 % Normal 11.6-14.6 [facility] Comment on above: Performed By: #### L 100.0100, L500.2500, L300.8000, L501.5425 #### [facility] [address] [place], [address] Hematocrit (Bld) [Volume fraction] 46.5 % Normal 40-54 [facility] Comment on above: Performed By: #### L 100.0100, L500.2500, L300.8000, L501.5425 #### [facility] [address] [place], [address] Hemoglobin (Bld) [Mass/Vol] 15.3 g/dL Normal 13.0-16.5 [facility] Comment on above: Performed By: #### L 100.0100, L500.2500, L300.8000, L501.5425 #### [facility] [address] [place], [address] IG% 0.700 Normal 0.0-0.9 [facility] Comment on above: Result Comment: IG% - Immature Granulocytes (promyelocytes, myelocytes and metamyelocytes) > 1% indicates that a LEFT SHIFT is Present. Performed By: #### L 100.0100, L500.2500, L300.8000, L501.5425 #### [facility] [address] [place], [address] Lymphocytes/100 WBC (Bld) 32.0 % Normal 19-41 [facility] Comment on above: Performed By: #### L 100.0100, L500.2500, L300.8000, L501.5425 #### [facility] [facility] [address] [place], [address] MCH (RBC) [Entitic mass] 29.9 pg Normal 27.0-32.0 [facility] Comment on above: Performed By: #### L 100.0100, L500.2500, L300.8000, L501.5425 #### [facility] [address] [place], [address] MCHC (RBC) [Mass/Vol] 32.9 g/dL Normal 32-36 [facility] Comment on above: Performed By: #### L 100.0100, L500.2500, L300.8000, L501.5425 #### [facility] [address] [place], [address] MCV (RBC) [Entitic vol] 91.0 fL Normal 80-94 [facility] Comment on above: Performed By: #### L 100.0100, L500.2500, L300.8000, L501.5425 #### [facility] [address] [place], [address] Monocytes/100 WBC (Bld) 9.0 % Normal 0-10 [facility] Comment on above: Performed By: #### L 100.0100, L500.2500, L300.8000, L501.5425 #### [facility] [address] [place], [address] Neutrophils/100 WBC (Bld) 54.0 % Normal 47-70 [facility] Comment on above: Performed By: #### L 100.0100, L500.2500, L300.8000, L501.5425 #### [facility] [address] [place], [address] Nucleated RBC (Bld) [#/Vol] 0 10*3/uL Normal 0-5 [facility] Comment on above: Performed By: #### L 100.0100, L500.2500, L300.8000, L501.5425 #### [facility] [address] [place], [address] Platelet mean volume (Bld) [Entitic vol] 9.1 fL Normal 6.2-12.0 [facility] Comment on above: Performed By: #### L 100.0100, L500.2500, L300.8000, L501.5425 #### [facility] [address] [place], [address] Platelets (Bld) [#/Vol] 229 10*3/uL Normal 150-450 [facility] Comment on above: Performed By: #### L 100.0100, L500.2500, L300.8000, L501.5425 #### [facility] [address] [place], [address] RBC (Bld) [#/Vol] 5.11 10*6/uL Normal 4.6-6.[address] [facility] Comment on above: Performed By: #### L 100.0100, L500.2500, L300.8000, L501.5425 #### [facility] [address] [place], [address] RDW SD 42.7 fl Normal 35.1-43.9 [facility] Comment on above: Performed By: #### L 100.0100, L500.2500, L300.8000, L501.5425 #### [facility] [address] [place], [address] WBC (Bld) [#/Vol] 8.2 10*3/uL Normal 4.4-11.0 [facility] Comment on above: Performed By: #### L 100.0100, L500.2500, L300.8000, L501.5425 #### [facility] [address] [place], [address] CBC-Complete Blood Cnt No Di ffon 12-06-2023 Erythrocyte distribution width (RBC) [Ratio] 12.8 % Normal 11.6-14.6 [facility] Comment on above: Performed By: #### L 100.0500 #### [facility] [address] [place], [address] Hematocrit (Bld) [Volume fraction] 44.8 % Normal 40-54 [facility] Comment on above: Performed By: #### L 100.0500 #### [facility] [address] [place], [address] Hemoglobin (Bld) [Mass/Vol] 14.9 g/dL Normal 13.0-16.5 [facility] Comment on above: Performed By: #### L 100.0500 #### [facility] [address] [place], [address] MCH (RBC) [Entitic mass] 29.7 pg Normal 27.0-32.0 [facility] Comment on above: Performed By: #### L 100.0500 #### [facility] [address] [place], [address] MCHC (RBC) [Mass/Vol] 33.3 g/dL Normal 32-36 [facility] Comment on above: Performed By: #### L 100.0500 #### [facility] [address] [place], [address] MCV (RBC) [Entitic vol] 89.2 fL Normal 80-94 [facility] Comment on above: Performed By: #### L 100.0500 #### [facility] [address] [place], [address] Platelet mean volume (Bld) [Entitic vol] 9.3 fL Normal 6.2-12.0 [facility] Comment on above: Performed By: #### L 100.0500 #### [facility] [address] [place], [address] Platelets (Bld) [#/Vol] 206 10*3/uL Normal 150-450 [facility] Comment on above: Performed By: #### L 100.0500 #### [facility] [address] [place], [address] RBC (Bld) [#/Vol] 5.02 10*6/uL Normal 4.6-6.[address] [facility] Comment on above: Performed By: #### L 100.0500 #### [facility] [address] [place], [address] RDW SD 41.7 fl Normal 35.1-43.9 [facility] Comment on above: Performed By: #### L 100.0500 #### [facility] [address] [place], [address] WBC (Bld) [#/Vol] 8.7 10*3/uL Normal 4.4-11.0 [facility] Comment on above: Performed By: #### L 100.0500 #### [facility] [address] [place], [place], [address] CTA Chest W/WO Contraston CTA Chest W/WO Contrast [facility] Imaging Services [address] [place] [address] CTA Chest W/WO Contrast MR#: [id number] Acct: [id number] Name: MARY NELSON Rep #: [id number] : 1970 M 53 From: Jerald Friedman MD PCP: Dr. Brennan Ty MD Status: REG ER Study: CTA Chest W/WO Contrast Date of Exam: 12/06/23 Exam# [id number] Ordering Dr: Jb Smith MD [id number] EXAM: CT ANGIOGRAPHY CHEST WITHOUT AND WITH INTRAVENOUS CONTRAST CLINICAL INDICATION: Elevated D dimer TECHNIQUE: Helically acquired angiography images were obtained of the chest without and with intravenous contrast. This CT exam was performed using one or more of the following dose reduction techniques: automated exposure control, adjustment of the mA and/or kV according to patient size, and/or use of iterative reconstruction technique. MIP reconstructed images were created and reviewed. CONTRAST: IV 100mL [id number] COMPARISON: No relevant prior studies available. FINDINGS: PULMONARY ARTERIES: Normal. Normal in caliber. No evidence of pulmonary embolism. AORTA: Normal. Normal in caliber. No evidence of dissection. GREAT VESSELS OF AORTIC ARCH: Normal. Normal in caliber. No evidence of dissection. LUNGS AND PLEURAL SPACES: Normal. No mass. No consolidation or edema. No pleural effusion or thickening. No pneumothorax. HEART: Normal. No pericardial effusion. Normal heart size. Moderate coronary artery calcification. MEDIASTINUM: Normal. No mediastinal or hilar adenopathy. Esophagus is unremarkable. No hiatal hernia. BONES/JOINTS: Normal. No suspicious lytic or blastic abnormality. CT/CTA Chest W/WO Contrast IMPRESSION: No acute cardiopulmonary abnormality. No evidence of acute pulmonary embolism. Electronically Signed: Jerald Friedman MD at 9:13 EDT , CC: Dr. Jb Smith MD; Dr. 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 Brennan Ty MD Status: ADM IN Referring Dr: Kolton Lange MD Sex: M C PCI Cardiac Cath Report PCI Report: PCI cardiac cath report 1. Successful PCI of the culprit lesion for STEMI/inferior MO With subtotal mid large dominant RCA, 99%, and ROSALINDA II flow, with predilatation using 3 x 15 mm balloon Followed by placement of drug-eluting stent 3.5 x 34 mm/Bear frontier HECTOR. With achievement of ROSALINDA III flow and reduction of stenosis to 0%. 2. Measurement of LVEDP and a pullback pressure from LV to the aorta. 3. Placement of TR band to close the right radial artery arteriotomy site. Preprocedure diagnosis; 53-year-old patient seen and evaluated in the ED at [facility] Presenting with symptoms of chest pain this morning. 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 Symptoms recurred with clear evidence of STEMI/acute inferior MO and ST elevation noted in the inferior leads including lead to 3 and aVF. Patient has extensive cardiac history with prior stents To the RCA by Dr. Suarez, here at [facility] He had 2 stents in the RCA at a different time from 2019. And he has been seen and followed regularly by his program management intern Dr. Louis. His other medical problem include history of diabetes, hypertension, CKD with baseline creatinine of 1.85. Patient continues to smoke. Consent; Risk and benefit of cardiac catheterization including worsening of his renal function with contrast- induced nephropathy. explained in detail patient elected to proceed informed consent obtained. Diagnostic and interventional equipment used in the Crt. 1. 6 Georgian sheaths placed in the right radial artery 2. 5 Georgian JL 3 5 diagnostic catheter 3. 6 Georgian JR 4 guide catheter 4. 0.014 180 cm BMW universal strength 5. 6 Georgian guide liner 6. 0.035 to 60 cm J exchanged wire. 3 x 15 regular balloon 7. 3.5 x 34 mm Bear frontier drug-eluting stent Medication used in the Crt 1. Patient received aspirin 325 mg at home 2. Heparin was used in the ER as well in the Crt with ACT level acceptable 3. Integrilin renal dose used. 4. 200 mcg nitroglycerin/intracoron paul x 2. 5. Brilinta 180 mg used in the Crt Procedure in detail; Patient brought to the Crt as an emergency from the ED at [facility] Access obtained from the right radial artery then we will proceed with a diagnostic catheter 3.5 JL 5 advanced sending aorta cannulated the left main multiple views the left coronary system obtained Following this we will proceed with 6 Georgian JR4 guide catheter and angiographic view of the culprit lesion which is RCA. Following this we proceeded with the guide wire across the lesion followed by balloon dilatation And then we used a guide liner and we proceed with drug-eluting stent 3.5 x 34 mm overlapped with the previous stent in the proximal RCA. The stent was placed in the mid RCA which was subtotal we went up to 16 BARTOLO. And achieve an excellent result with ROSALINDA-3 flow in the RCA and reduction of stenosis from subtotal 99% to 0%. Following this same catheter was used across the aortic valve placed in the mid LV and LVEDP was measured and then a pullback pressure was recorded. Hemodynamics; 1. LVEDP measuring 17 mmHg 2. No systolic gradient across aortic valve. Coronary angiography; 1. Left main large vessel with a distal left main around 20-30%, bifurcating into LAD and left circumflex. 2. Left anterior descending artery diffuse proximal to mid atherosclerosis with multiple segmental lesions of around 130-40%. 3. D1 moderate size vessel branching With diffuse atherosclerosis at the branch side there is ostial lesion of around 70 And there is diffuse atherosclerosis of the diagonal branch which is around 70%. The proximal left circumflex artery had diffuse nonobstructive sclerosis of around 30%. RCA is the culprit large dominant with ectasia of the proximal RCA more than 6 mm. Followed by proximal RCA at the diffuse atherosclerosis nonobstructive around 30-40 The stent in the proximal RCA is patent The mid RCA had a subtotal lesions. As explained underwent successful PCI of the subtotal using photography assistant of the guide liner to deliver the stent. Following this all catheter removed Hemostasis maintained with placement of TR band to the right radial artery site No complication in the Crt Conclusion recommendation; 53-year-old patient with a prior history of PCI stent of the RCA x 2 Patient presented with STEMI acute inferior MO in the ER Underwent successful PCI of (more content not included)... Normal [facility] Chest 1 View (Portable)on Chest 1 View (Portable) [facility] Imaging Services [address] [place] [id number] Chest 1 View (Portable) MR#: [id number] Acct: [id number] Name: MARY NELSON Rep #: [id number] : 1970 M 53 From: Jerald Friedman MD PCP: Dr. Brennan Ty MD Status: REG ER Study: Chest 1 View (Portable) Date of Exam: 12/06/23 Exam# [id number] Ordering Dr: Jb Smith MD [id number] EXAM: XR CHEST, 1 VIEW CLINICAL INDICATION: chest pain TECHNIQUE: Frontal view of the chest. COMPARISON: XR Chest dated 09/23/2022 FINDINGS: LUNGS AND PLEURAL SPACES: Normal. No consolidation or edema. No pneumothorax. No effusion. HEART: Normal heart size. MEDIASTINUM: No mediastinal or hilar mass. BONES/JOINTS: No acute abnormality. RAD/Chest 1 View (Portable) IMPRESSION: No acute cardiopulmonary abnormality. No interval change. Electronically Signed: Jerald Friedman MD at 8:15 EDT , CC: Dr. Jb Smith MD; Dr. Brennan Ty MD Asbestos Coverer: Signed Normal [facility] D-Dimer Quantitative (DVT/PE )on 12-06-2023 D-DIMER QUANT 0.69 FEU/ug/m Invalid Interpretation Code 0.27-0.49 [facility] Comment on above: Result Comment: D-Di yvon ELEVATED (>0.49): Additional studies and clinical assessments are indicated to conclude diagnosis of: Deep Vein Thrombosis (DVT) or Pulmonary Embolism (PE) CRITICAL VALUE VERIFIED. CALLED TO DONTRELL ALMAGUER 12/06/23 0837 Dakota Sierra. RESULTS READ BACK BY SAME. Performed By: #### L 100.0100, L500.2500, L300.8000, L501.5425 #### [facility] Laboratory [address] [place], [address] Echo Completeon 12-06-2023 Echo Complete [facility] [address] [place] [address] Echo Complete 12/08/23 1027 MR#: [id number] Acct: [id number] Name: MARY NELSON Rep #: [id number] : 1970 53 From: Ming Louis MD Attending Dr: Dr. Anant Angeles, Status : ADM IN Ordering Dr: Anant Angeles DO Date: 12/06/23 Location: ICU Sex: M C Admitted: 12/06/23 Procedure This was a 2D Doppler, Color Flow transthoracic echocardiogram. Exam performed portable in ICU/CCU. Left Ventricle Normal LV size. Left ventricular systolic function is normal. The left ventricular ejection fraction is 55 %. Stage 1 diastolic dysfunction. No regional wall motion abnormalities noted. Right Ventricle Normal RV size. Normal systolic function. Atria Normal left atrium. Normal right atrium. Mitral Valve Normal mitral valve. Tricuspid Valve Normal tricuspid valve. Aortic Valve Trisinus/trileaflet aortic valve. Pulmonic Valve Normal pulmonic valve. Great Vessels Normal aortic root. The pulmonary artery is normal size. Normal inferior vena cava. Pericardium/Pleural No pericardial effusion. MMode/2D Measurements Calculations LVIDd: 4.5 cm IVSd: 0.87 cm Ao root diam: 3.0 cm LVIDs: 3.6 cm LVPWd: 1.1 cm RVDd: 3.0 cm FS: 20.6 % LAV(MOD-bp): 32.0 ml LVAd ap4: 26.9 cm2 SV(MOD-sp4): 35.0 ml LAV(MOD-bp) Indexed: 14.4 ml/m2 LVLd ap4: 8.8 cm LAV(MOD-sp2): 22.8 ml EDV(MOD-sp4): 66.5 ml LAV(MOD-sp4): 44.9 ml EDV(sp4-el): 69.5 ml LVAs ap4: 17.1 cm2 LVLs ap4: 7.9 cm ESV(MOD-sp4): 31.5 ml ESV(sp4-el): 31.6 ml EF(MOD-sp4): 52.6 % EF(sp4-el): 54.5 % SV(sp4-el): 37.8 ml LA A4 area: 15.9 cm2 LA dimension(2D): 2.7 cm RA A4 area: 9.8 cm2 TAPSE: 1.9 cm Time Measurements MV dec time: 0.18 sec Doppler Measurements Calculations MV E max silvestre: 71.1 cm/sec Lat Peak E' Silvestre: 13.2 cm/sec Med Peak E' Silvestre: 7.9 cm/sec MV A max silvestre: 74.0 cm/sec E/E' lat: 5.4 E/E' med: 9.0 MV E/A: 0.96 MV V2 max: 97.5 cm/sec Ao V2 max: 137.1 cm/sec MV max P.8 mmHg MV dec slope: 406.8 cm/sec2 Ao max P.6 mmHg MV V2 mean: 57.5 cm/sec Ao V2 mean: 95.0 cm/sec MV mean P.5 mmHg Ao mean P.1 mmHg MV V2 VTI: 27.0 cm Ao V2 VTI: 27.5 cm AV (velocity ratio): 0.93 LV V1 max: 114.0 cm/sec PA V2 max: 91.2 cm/sec LV V1 max P.2 mmHg PA V2 mean: 62.3 cm/sec LV V1 mean P.0 mmHg LV V1 mean: 80.7 cm/sec LV V1 VTI: 25.5 cm ECHO/Echo Complete Interpretation Summary Normal LV size. Left ventricular systolic function is normal. The left ventricular ejection fraction is 55 %. Stage 1 diastolic dysfunction. Ordering Physician: Anant Angeles Referring Physician: Kolton Lange Performed By: Jessica Null RCS 12/08/23 1337 Date Ming Louis MD CC: Dr. Anant Angeles, DO; Dr. Kolton Lange MD; Dr. 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 Brennan Ty MD Status:ADM IN Location: ICU [id number] HPI History of Present Illness Chief Complaint: Chest Pain Narrative Narrative: 53-year-old male past medical history of hypertension, hyperlipidemia, chronic kidney disease, states he had 2 MIs the last being around 2020 and has 2 stents in his heart/coronary arteries. He awoke suddenly this morning with chest pain and shoulder pain radiating from his neck towards his shoulder. Additionally, he states he has pain in his lower jaw and that his teeth hurt. He had been told previously that that is concerning for a heart attack. He felt this way similarly, but more intensely when he had his MIs in the past. He is a smoker but down to just under a pack a day. He denies any leg swelling. No nausea or vomiting. No shortness of breath. [facility] Medical History Heart attack Wears glasses History of steroid therapy Thyroid disease Diabetes History of renal disease Arthritis High cholesterol Easy bruising Excessive bleeding Back pain TIA (transient ischemic attack) Syncope Gastric reflux Smoker Shortness of breath on exertion Chronic cough History of pain when walking History of stress test History of echocardiogram Cardiology follow-up encounter History of heart attack Erectile dysfunction Syncope Nicotine dependence Palpitations History of ST elevation myocardial infarction (STEMI) (09/29/16) Sleep-disordered breathing Diabetes mellitus type II, controlled Essential hypertension Neurogenic bladder Chronic kidney disease, stage 3 (03/15/13) Atherosclerosis of coronary artery of [place] heart without angina pectoris NSVT (nonsustained ventricular tachycardia) Chronic radicular lumbar pain Spinal stenosis of lumbar region Osteoarthritis Hyperlipidemia Home Medications ???Medication ???Instructions ???Recorded ???Last Taken ???Type escitalopram oxalate 5 mg tablet 5 mg PO DAILY depression 04/21/15 07/25/19 History fish oil-dha-epa 1,200 mg-144 1 each PO DAILY supplement 04/21/15 12/31/22 History mg-216 mg capsule allopurinol 100 mg tablet 100 mg PO DAILY edema; uric acid 07/25/15 07/25/19 History aspirin 81 mg tablet,delayed 81 mg PO DAILY@0800 health 05/01/18 12/31/22 History release maintenance trimethoprim 100 mg tablet 100 mg PO QODAY PRN antibiotic 02/17/20 Unknown History nitroglycerin 0.4 mg sublingual 0.4 mg sublingual Q5M PRN chest 06/09/20 Unknown Rx tablet pain #25 tabs cyclobenzaprine 10 mg tablet 10 mg PO DAILY PRN Pain 1-10 Or 08/12/20 Unknown History Fever meloxicam 7.5 mg tablet 7.5 mg PO PRN PAIN 08/12/20 Unknown History catheter 14 Fr-6 07/22/21 Unknown History esomeprazole magnesium 20 mg 20 mg PO DAILY #30 caps 02/25/22 Unknown Rx capsule,delayed release (Nexium) gabapentin 600 mg tablet 600 mg PO BID 06/04/22 Unknown History glimepiride 4 mg tablet 4 mg PO BID 06/04/22 Unknown History tizanidine 4 mg tablet 4 mg PO QHS PRN muscle spasticity 06/04/22 Unknown History vitamin B complex-vitamin C-folic 1 tab PO DAILY 06/04/22 Unknown History acid 0.8 mg tablet (Otilia-Prema) cholecalciferol (vitamin D3) 25 25 mcg PO DAILY 12/31/22 Unknown History mcg (1,000 unit) tablet (Vitamin D3) hydrocodone-acetaminophe n 5-325mg tab PO 05/22/23 Unknown History 5mg-325mg glucosamine sulfate 500 mg tablet 500 mg PO DAILY 07/09/23 Unknown History (Glucosamine) isosorbide mononitrate 60 mg 60 mg PO DAILY #90 tabs 08/21/23 Unknown Rx tablet,extended release 24 hr atorvastatin 80 mg tablet 80 mg PO QHS cholesterol #90 tabs 09/04/23 Unknown Rx carvedilol 25 mg tablet (Coreg) 25 mg PO BID #180 tabs 09/04/23 Unknown Rx clopidogrel 75 mg tablet 75 mg PO DAILY #90 tabs 09/04/23 Unknown Rx furosemide 20 mg tablet See Rx Instructions .Route 09/04/23 Unknown Rx .COMPLEX #90 tabs Allergy/AdvReac Type Severity Reaction Status Date / Time sulfamethoxazole (From Allergy Mild Rash Verified 07/09/23 13:56 Bactrim) trimethoprim (From Bactrim) Allergy Mild Rash Verified 07/09/23 13:56 bupropion (From Wellbutrin) AdvReac Elevated Verified 07/09/23 13:56 BP Family History Grandfather CAD (coronary artery disease) Surgical History History of lateral meniscus repair of right knee History of cardiac catheterization History of coronary artery stent placement (10/25/19) History of left heart catheterization ileoconduit placement His (more content not included)... Normal [facility] H AND P Exam - Hospitaliston 12-06-2023 H&P Exam - Hospitalist [facility] Medical Records Department [address] [place] [address] H P Exam - Hospitalist 12/06/23 1244 MR#: [id number] Acct: [id number] Name: MARY NELSON Rep #: [id number] : 1970 53 From: Anant Angeles DO PCP: Dr. Brennan Ty MD Status:ADM IN Location: ICU [id number] HPI - General General Date of Admission: 12/06/23 Date of Service: 12/06/23 Chief Complaint: Chest pain HPI Narrative MARY NELSON, is a 53 M who presented to [facility] ED on 12/06/2023 with chest pain. Found to have ST elevations in leads I and aVL in the ER, STEMI alert called and patient taken emergently to the Crt. Found to have subtotal occlusion of the mid RCA, had stent placement with hinduism of ROSALINDA-3 flow and reduction of stenosis to 0%. I saw the patient at bedside in the ICU after his heart cath. Patient was fatigued appearing but otherwise laying comfortably in bed, conversing normally, in no acute distress. He denied any chest pain or discomfort currently. Denied any other acute concerns. Patient has extensive cardiac history, follows with [place] [facility], last office visit in May. NSTEMI back in September 2016 with stenting to the left circumflex. Then had an NSTEMI in October 2019 with stenting to the RCA. Last echo was back in 2019, had normal EF at that time. Had stress test in 2020 that also showed normal EF and cardiac function. Patient reports compliance with his medications including aspirin and Plavix but continues to be a cigarette smoker. No other acute concerns at this time. [facility] Medical History Heart attack Wears glasses History of steroid therapy Thyroid disease Diabetes History of renal disease Arthritis High cholesterol Easy bruising Excessive bleeding Back pain TIA (transient ischemic attack) Syncope Gastric reflux Smoker Shortness of breath on exertion Chronic cough History of pain when walking History of stress test History of echocardiogram Cardiology follow-up encounter History of heart attack Erectile dysfunction Syncope Nicotine dependence Palpitations History of ST elevation myocardial infarction (STEMI) (09/29/16) Sleep-disordered breathing Diabetes mellitus type II, controlled Essential hypertension Neurogenic bladder Chronic kidney disease, stage 3 (03/15/13) Atherosclerosis of coronary artery of [place] heart without angina pectoris NSVT (nonsustained ventricular tachycardia) Chronic radicular lumbar pain Spinal stenosis of lumbar region Osteoarthritis Hyperlipidemia Home Medications ???Medication ???Instructions ???Recorded ???Last Taken ???Type escitalopram oxalate 5 mg tablet 5 mg PO DAILY depression 04/21/15 07/25/19 History fish oil-dha-epa 1,200 mg-144 1 each PO DAILY supplement 04/21/15 12/31/22 History mg-216 mg capsule allopurinol 100 mg tablet 100 mg PO DAILY edema; uric acid 07/25/15 07/25/19 History aspirin 81 mg tablet,delayed 81 mg PO DAILY@0800 health 05/01/18 12/31/22 History release maintenance trimethoprim 100 mg tablet 100 mg PO QODAY PRN antibiotic 02/17/20 Unknown History nitroglycerin 0.4 mg sublingual 0.4 mg sublingual Q5M PRN chest 06/09/20 Unknown Rx tablet pain #25 tabs cyclobenzaprine 10 mg tablet 10 mg PO DAILY PRN Pain 1-10 Or 08/12/20 Unknown History Fever meloxicam 7.5 mg tablet 7.5 mg PO PRN PAIN 08/12/20 Unknown History catheter 14 Fr-6 07/22/21 Unknown History esomeprazole magnesium 20 mg 20 mg PO DAILY #30 caps 02/25/22 Unknown Rx capsule,delayed release (Nexium) gabapentin 600 mg tablet 600 mg PO BID 06/04/22 Unknown History glimepiride 4 mg tablet 4 mg PO BID 06/04/22 Unknown History tizanidine 4 mg tablet 4 mg PO QHS PRN muscle spasticity 06/04/22 Unknown History vitamin B complex-vitamin C-folic 1 tab PO DAILY 06/04/22 Unknown History acid 0.8 mg tablet (Otilia-Prema) cholecalciferol (vitamin D3) 25 25 mcg PO DAILY 12/31/22 Unknown History mcg (1,000 unit) tablet (Vitamin D3) hydrocodone-acetaminophe n 5-325mg tab PO 05/22/23 Unknown History 5mg-325mg glucosamine sulfate 500 mg tablet 500 mg PO DAILY 07/09/23 Unknown History (Glucosamine) isosorbide mononitrate 60 mg 60 mg PO DAILY #90 tabs 08/21/23 Unknown Rx tablet,extended release 24 hr atorvastatin 80 mg tablet 80 mg PO QHS cholesterol #90 tabs 09/04/23 Unknown Rx carvedilol 25 mg tablet (Coreg) 25 mg PO BID #180 tabs 09/04/23 Unknown Rx clopidogrel 75 mg tablet 75 mg PO DAILY #90 tabs 09/04/23 Unknown Rx furosemide 20 mg tablet See Rx Instructions .Route 09/04/23 Unknown Rx .COMPLEX #90 tabs Allergy/AdvReac Type Severity Reaction Status Date / Time sulfamethoxazole (From Allergy Mild Rash Verified 07/09/23 13:56 Bactrim) trimethoprim (From Bactrim) Aller (more content not included)... Normal [facility] Hemoglobin A1con 12-06-2023 HbA1c (Bld) [Mass fraction] 6.9 % High 3.8-5.6 [facility] Comment on above: Result Comment: Norm al < 5.7 % Prediabetic 5.7 - 6.4 % Diabetic >or= 6.5 % Please note range changes. Performed By: #### L 500.4100, L501.9985, L501.9520 #### [facility] [address] [place], [address] L501.4020on 12-06-2023 TROPONIN-I HS 111 pg/mL High 3.0-78.0 [facility] Comment on above: Result Comment: Plea se Note: New Test Units and Gender Specific Reference Ranges. For more information see Policy Stat Procedure [place] High Sensitivity Troponin (TNIH) and attachments. Performed By: #### L 100.0100, L500.2500, L300.8000, L501.5425 #### [facility] [address] [place], [address] L501.5425on 12-06-2023 TROPONIN-I HS 7 pg/mL Normal 3.0-78.0 [facility] Comment on above: Order Comment: 1 Y Result Comment: Plea se Note: New Test Units and Gender Specific Reference Ranges. For more information see Policy Stat Procedure [place] High Sensitivity Troponin (TNIH) and attachments. Performed By: #### L 100.0100, L500.2500, L300.8000, L501.5425 #### [facility] [address] [place], [address] Lipid Profileon 12-06-2023 Cholesterol [Mass/Vol] 160 mg/dL Normal 200 [facility] Comment on above: Result Comment: <200 mg/dL Desirable 200-240 mg/dL Borderline >240 mg/dL High Risk Performed By: #### L 500.4100, L501.9985, L501.9520 #### [facility] [address] [place], [address] Cholesterol in HDL [Mass/Vol] 33 mg/dL Low [facility] Comment on above: Result Comment: The drugs N-Acetylcysteine and Metamizole may falsely depress this assay. Reference Range HDL <40 mg/dL Low HDL Cholesterol HDL >or= 60 mg/dL High HDL Cholesterol Performed By: #### L 500.4100, L501.9985, L501.9520 #### [facility] [address] [place], [address] LDL TNP Normal 0-130 [facility] Comment on above: Performed By: #### L 500.4100, L501.9985, L501.9520 #### [facility] [address] [place], [address] Triglyceride [Mass/Vol] 471 mg/dL High [facility] Comment on above: Result Comment: The drugs N-Acetylcysteine and Metamizole may falsely depress this assay. TRIGLYCERIDE IS GREATER THAN 400 mg/dL. LDL RESULT IS INVALID AND WILL NOT BE REPORTED. Serum Triglycerides Reference Interval Normal <150 mg/dL Borderline high 150 - 199 mg/dL High 200 - 499 mg/dL Very High > or = 500 mg/dL Performed By: #### L 500.4100, L501.9985, L501.9520 #### [facility] [address] [place], [address] VLDL TNP Normal 5-40 [facility] Comment on above: Performed By: #### L 500.4100, L501.9985, L501.9520 #### [facility] [address] [place], [address] MR/QUALITYon 12-06-2023 MR/QUALITY [facility] Medical Records Department [address] [place] [address] Quality Report 12/06/23 1100 MR#: [id number] Acct: [id number] Name: MARY NELSON Rep #: [id number] : 1970 53 From: Leonid De Souza PCP: Dr. Brennan Ty MD Status:ADM IN Y Location: ICU [id number] STEMI STEMI ED Door Time / Other REG STEMI EKG Time (1) STEMI (ST elevation myocardial infarction): Acute 12/06/23 09:32 Balloon/Aspiration Date-Time Date of Balloon/Aspiration:: 12/06/23 Time of Balloon/Aspiration:: 10:30 12/06/23 1105 Date Leonid De Souza Cosigner Signature (if applicable): Date CC: Signed Normal [facility] Partial Thromboplast Timeon 12-06-2023 aPTT Coag (Bld) [Time] 26.4 s Normal 24.1-36.2 [facility] Comment on above: Performed By: #### L 100.0100, L500.2500, L300.8000, L501.5425 #### [facility] [address] [place], [place], [address] Prothrombin Time w/INRon INR Coag (PPP) [Relative time] 0.9 {INR} Normal [facility] Comment on above: Performed By: #### L 100.0100, L500.2500, L300.8000, L501.5425 #### [facility] [address] [place], [address] PT Coag (PPP) [Time] 11.8 s Normal 11.7-14.9 [facility] Comment on above: Performed By: #### L 100.0100, L500.2500, L300.8000, L501.5425 #### [facility] [address] [place], [address] Thyroid Stim Hormone (TSH)on 12-06-2023 TSH 0.89 uIU/mL Normal 0.358-3.74 [facility] Comment on above: Performed By: #### L 500.4100, L501.9985, L501.9520 #### [facility] [address] [place], [address] CNOVon 08-03-2018 CNOV Office Visit ([facility] ) -------- MARY NELSON ([id number]) 1970 M Date Time Provider Department 08/03/18 1:40 PM ELSA ROGERS [facility] During your visit today, we recorded the following information about you: Pulse Blood pressure Weight Height 93/minute 145/104 96.2 kg 1.854 m Elsa Rogers MD 08/03/2018 6:13 PM Signed CC: RLQ pain; bilateral inguinal hernias HPI: 48 year old male, self referred, for two years of intermittent RLQ abdominal pain, as well as inguinal hernias. He has an extensive urologic history dating to when he was a child. He had a urostomy, followed eventually by takedown of his urostomy and creation of a neobladder from bowel. He self catheterizes. He had sudden onset of RLQ pain [place] of 2015. He was evaluated in ER, and CT was negative with the exception of bilateral fat containing inguinal hernias. Pain has been intermittent but persistent ever since. Pain can be when he awakens in the morning, or with activities, and sexual activity also is uncomfortable. Pain does NOT occur when his bladder is full. He also has a bandlike pain, intermittent, across his groin area. This also is not particularly associated with activities. He has never had a colonoscopy, but denies constipation. PAST MEDICAL HISTORY Diagnosis Date - DJD (degenerative joint disease) - HTN (hypertension) - Hypercholesteremia - Hypothyroid - Kidney disease, chronic, stage III (GFR 30-59 ml/min) (HCC) - OA (osteoarthritis) - Pyelonephritis - UTI (urinary tract infection) PAST SURGICAL HISTORY Procedure Laterality Date - ANGIOPLASTY 2016 Drug eluting stent - PAST SURGICAL HISTORY OF 1988 urinary stricture removal - [facility] NEPHROSTOMY CATHETER 2013 - URINARY UN-DIVERSION 1972 Current Outpatient Medications on File Prior to Visit: folic acid/vit B complex and C (OTILIA-PREMA ORAL) Take by mouth once daily. HYDROcodone-acetaminophe n (NORCO) 5-325 mg per tablet NORCO 5-325 MG TABS METOPROLOL SUCCINATE ORAL Take by mouth. ISOSORBIDE DINITRATE ORAL Take by mouth. TRIMETHOPRIM ORAL Take by mouth. ASPIRIN (ASPIR-81 ORAL) Take 1 tablet by mouth once daily. atorvastatin (LIPITOR) 10 mg tablet Take 10 mg by mouth once daily. gabapentin (NEURONTIN) 100 mg capsule Take 100 mg by mouth three times daily. allopurinol (ZYLOPRIM) 100 mg tablet Take 100 mg by mouth once daily. escitalopram oxalate (LEXAPRO) 5 mg tablet Take 5 mg by mouth once daily. ergocalciferol, vitamin D2, (DRISDOL) 50,000 unit capsule Take 50,000 Units by mouth once each week. Orick-3 Fatty Acids-Vitamin E 1,000 mg cap Take 1 capsule by mouth. multivitamin tablet Take 1 tablet by mouth once daily. No current facility-administered medications on file prior to visit. ALLERGIES Allergen Reactions - Bactrim [Sulfametho* Hives Social History Socioeconomic History Marital status: Spouse name: Not on file Number of children: Not on file Years of education: Not on file Highest education level: Not on file Social Needs Financial resource strain: Not on file Food insecurity - worry: Not on file Food insecurity - inability: Not on file Transportation needs - medical: Not on file Transportation needs - non-medical: Not on file Occupational History Not on file Tobacco Use Smoking status: Current Every Day Smoker Packs/day: 0.50 Years: 35.00 Pack years: 17.5 Types: Cigarettes Smokeless tobacco: Never Used Substance and Sexual Activity Alcohol use: No Drug use: Never Sexual activity: Not on file Other Topics Concerns: Not on file Social History Narrative Not on file Family History Reviewed Including Cardiac Diseases, Psychiatric Diseases, AND Substance Abuse Problem Relation Age of Onset - Coronary Artery Disease Maternal Grandfather - Psychiatry Paternal Grandmother REVIEW OF SYSTEMS PAIN ASSESSMENT: See HPI GENERAL: No weight loss, malaise or fevers NECK: Negative for lumps, goiter, pain and significant neck swelling RESPIRATORY: Negative for cough, hemoptysis, wheezing, COPD, dyspnea or shortness of breath CARDIOVASCULAR: Negative for chest pain, leg swelling, hypertension, CHF or palpitations, Stable Hx of CAD/stent; no new symptoms GI: No nausea, vomiting, or diarrhea : See HPI SKIN: Negative for lesions, rash, and itching NEURO: No history of headaches, syncope, paralysis, seizures or tremors ExaM; NAD. Pleasant. Lungs CTAB. Heart RRR, nl s1 and s2 no murmur. Abdomen: Multiple midline scars; vertical RLQ scar (prior urostomy); transverse scar. Abdominal exam reveals no tenderness, no masses, and specifically, no hernias in midline or RLQ. Exam of bilateral groins reveals likely right hydrocele, and mild bilateral impulses with valsalva. Extremities without edema. CT from September 2017 reviewed. No abdominal wall or incisional hernias. Fat containing bilateral inguinal hernias, but no bowel involvement, and these hernias are relatively small. The neobladder is in the RLQ in the vicinity of his complaint. a/P: Unsure etiology of RLQ pain. No hernias in this location, and his inguinal hernias are unlikely to be cause of pain higher on his abdominal wall. Unsure how symptomatic his inguinal hernias are either. Suggest observation, and tracking symptoms. He has an appointment with his urologist for the hydrocele. He may also need a urology appointment within [place] to make sure symptoms aren't arising from his reconstructed bladder (unlikely). Repair of bilateral inguinal hernias would need to be done open given prior abdominal operations. Procedure, risks discussed including risks of bleeding, infection, recurrence, chronic groin pain. Consideration could be given to dx laparoscopy and lysis of adhesions in an attempt to relieve his pain, but this would carry risks of bowel or neobladder injury, and likely be complex. He will consider options and he will contact our office when he wishes to discuss. 45 minutes spent with patient, with greater than 50% spent in education and counseling. Elsa Rogers MD Referring Provider: PASCUAL MANN [[id number]] Allergies As of Date: 08/03/2018 Noted Allergy Reaction BACTRIM (SULFAMETHOXAZOLE-TRIMET H*07/07/2015 4 - Hives Date Reviewed: 08/03/2018 Reviewed by: Elsa Rogers - Fully Assessed Reason for Visit: Consult [173] Primary Visit Diagnosis:Non-recurrent bilateral inguinal hernia without obstruction or gangrene [K40.20] Other Visit Diagnosis:RLQ abdominal pain [R10.31] Order(s):clopidogrel (PLAVIX) 75 mg tabletTake 1 tablet by mouth once daily.Disp: Rfl: Prescriptions as of 08/03/2018 Sig: OTILIA-PREMA ORAL Take by mouth once daily. HYDROCODONE 5 MG-ACETAMINOPHE* NORCO 5-325 MG TABS METOPROLOL SUCCINATE ORAL Take by mouth. ISOSORBIDE DINITRATE ORAL Take by mouth. TRIMETHOPRIM ORAL Take by mouth. ASPIR-81 ORAL Take 1 tablet by mouth once d* ATORVASTATIN 10 MG TABLET Take 10 mg by mouth once luan* GABAPENTIN 100 MG CAPSULE Take 100 mg by mouth three ti* ALLOPURINOL 100 MG TABLET Take 100 mg by mouth once cecilia* ESCITALOPRAM 5 MG TABLET Take 5 mg by mouth once daily. ERGOCALCIFEROL (VITAMIN D2) 5* Take 50,000 Units by mouth on* OMEGA-3 FATTY ACIDS-VITAMIN E* Take 1 capsule by mouth. CLOPIDOGREL 75 MG TABLET Take 1 tablet by mouth once d* MULTIVITAMIN TABLET Take 1 tablet by mouth once d* Medication notes this encounter HYDROCODONE 5 MG-ACETAMINOPHEN 325 MG TABLET >> Debra Lu Ma 08/03/2018 1:55 PM >> DEBRA LU MA FriAug 03, 2018 1:55 PM PRN METOPROLOL SUCCINATE ORAL >> Debra Lu Ma 08/03/2018 1:56 PM >> DEBRA LU MA FriAug 03, 2018 1:56 PM Extended Release daily ATORVASTATIN 10 MG TABLET >> Debra Lu Ma 08/03/2018 1:53 PM >> DEBRA LU MA FriAug 03, 2018 1:53 PM Taking 80 mg daily GABAPENTIN 100 MG CAPSULE >> Debra Lu Ma 08/03/2018 1:54 PM >> DEBRA LU MA FriAug 03, 2018 1:54 PM Can take up to 900 mg daily ERGOCALCIFEROL (VITAMIN D2) 50,000 UNIT CAPSULE >> Debra Lu Ma 08/03/2018 1:54 PM >> DEBRA LU MA Aug 03, 2018 1:54 PM Vitamin d3 Problem List As Of Date 08/03/2018 Noted Resolved RLQ abdominal pain [R10.31] INVALID FOR* Bilateral inguinal hernia without obstruction o*INVALID FOR* Incisional hernia, without obstruction or gangr*INVALID FOR* Numbness [R20.0] INVALID FOR* Urinary retention [R33.9] INVALID FOR* Nicotine use disorder, F17.2 [F17.200] INVALID FOR* Hydronephrosis [N13.30] INVALID FOR* Neurogenic bladder [N31.9] INVALID FOR* Prescriptions ordered this encounter Disp Refills Start End CLOPIDOGREL 75 MG TABLET 08/03/2018 Class: Med Update Route: ORAL Sig: Take 1 tablet by mouth once daily. Medications Discontinued During This Encounter 0.9 % SODIUM CHLORIDE (NACL 0.9%) so* 500 * 0 08/18/2017 08/03/2018 Class: In Office Route: INTRAVENOUS Sig: Inject 500 mL intravenously as directed. Over a period of 2 hours. Patient not taking: Reported on 08/03/2018 Disc: Course of therapy completed LISINOPRIL, BULK, MISC 08/03/2018 Class: Historical Med Route: Miscell. (Med.Supl.;Non-Drugs) Sig: Disc: Course of therapy completed BRILINTA 90 mg tablet 12/07/2016 08/03/2018 Class: Historical Med Sig: Disc: Course of therapy completed losartan (COZAAR) 100 mg tablet 08/03/2018 Class: Historical Med Route: ORAL Sig: Take 100 mg by mouth once daily. Disc: Course of therapy completed amLODIPine (NORVASC) 5 mg tablet 08/03/2018 Class: Historical Med Route: ORAL Sig: Take 10 mg by mouth once daily. Disc: Course of therapy completed carvedilol (COREG) 25 mg tablet 08/03/2018 Class: Historical Med Route: ORAL Sig: Take 25 mg by mouth twice daily with meals. Disc: Course of therapy completed Encounter Status:Closed by ELSA ROGERS MD on 08/03/18 Normal [facility] PROGRESSon 08-03-2018 Protein mass conc HNO ID: [id number] Author: Elsa Rogers Service: ? Author Type: Physician Type: Progress Notes Filed: 08/03/2018 6:13 PM Note Text: CC: RLQ pain; bilateral inguinal hernias HPI: 48 year old male, self referred, for two years of intermittent RLQ abdominal pain, as well as inguinal hernias. He has an extensive urologic history dating to when he was a child. He had a urostomy, followed eventually by takedown of his urostomy and creation of a neobladder from bowel. He self catheterizes. He had sudden onset of RLQ pain [place] of 2015. He was evaluated in ER, and CT was negative with the exception of bilateral fat containing inguinal hernias. Pain has been intermittent but persistent ever since. Pain can be when he awakens in the morning, or with activities, and sexual activity also is uncomfortable. Pain does NOT occur when his bladder is full. He also has a bandlike pain, intermittent, across his groin area. This also is not particularly associated with activities. He has never had a colonoscopy, but denies constipation. PAST MEDICAL HISTORY Diagnosis Date - DJD (degenerative joint disease) - HTN (hypertension) - Hypercholesteremia - Hypothyroid - Kidney disease, chronic, stage III (GFR 30-59 ml/min) (HCC) - OA (osteoarthritis) - Pyelonephritis - UTI (urinary tract infection) PAST SURGICAL HISTORY Procedure Laterality Date - ANGIOPLASTY 2016 Drug eluting stent - PAST SURGICAL HISTORY OF 1988 urinary stricture removal - [facility] NEPHROSTOMY CATHETER 2013 - URINARY UN-DIVERSION 1973 Current Outpatient Medications on File Prior to Visit: folic acid/vit B complex and C (OTILIA-PREMA ORAL) Take by mouth once daily. HYDROcodone-acetaminophe n (NORCO) 5-325 mg per tablet NORCO 5-325 MG TABS METOPROLOL SUCCINATE ORAL Take by mouth. ISOSORBIDE DINITRATE ORAL Take by mouth. TRIMETHOPRIM ORAL Take by mouth. ASPIRIN (ASPIR-81 ORAL) Take 1 tablet by mouth once daily. atorvastatin (LIPITOR) 10 mg tablet Take 10 mg by mouth once daily. gabapentin (NEURONTIN) 100 mg capsule Take 100 mg by mouth three times daily. allopurinol (ZYLOPRIM) 100 mg tablet Take 100 mg by mouth once daily. escitalopram oxalate (LEXAPRO) 5 mg tablet Take 5 mg by mouth once daily. ergocalciferol, vitamin D2, (DRISDOL) 50,000 unit capsule Take 50,000 Units by mouth once each week. Orick-3 Fatty Acids-Vitamin E 1,000 mg cap Take 1 capsule by mouth. multivitamin tablet Take 1 tablet by mouth once daily. No current facility-administered medications on file prior to visit. ALLERGIES Allergen Reactions - Bactrim [Sulfametho* Hives Social History Socioeconomic History Marital status: Spouse name: Not on file Number of children: Not on file Years of education: Not on file Highest education level: Not on file Social Needs Financial resource strain: Not on file Food insecurity - worry: Not on file Food insecurity - inability: Not on file Transportation needs - medical: Not on file Transportation needs - non-medical: Not on file Occupational History Not on file Tobacco Use Smoking status: Current Every Day Smoker Packs/day: 0.50 Years: 35.00 Pack years: 17.5 Types: Cigarettes Smokeless tobacco: Never Used Substance and Sexual Activity Alcohol use: No Drug use: Never Sexual activity: Not on file Other Topics Concerns: Not on file Social History Narrative Not on file Family History Reviewed Including Cardiac Diseases, Psychiatric Diseases, AND Substance Abuse Problem Relation Age of Onset - Coronary Artery Disease Maternal Grandfather - Psychiatry Paternal Grandmother REVIEW OF SYSTEMS PAIN ASSESSMENT: See HPI GENERAL: No weight loss, malaise or fevers NECK: Negative for lumps, goiter, pain and significant neck swelling RESPIRATORY: Negative for cough, hemoptysis, wheezing, COPD, dyspnea or shortness of breath CARDIOVASCULAR: Negative for chest pain, leg swelling, hypertension, CHF or palpitations, Stable Hx of CAD/stent; no new symptoms GI: No nausea, vomiting, or diarrhea : See HPI SKIN: Negative for lesions, rash, and itching NEURO: No history of headaches, syncope, paralysis, seizures or tremors ExaM; NAD. Pleasant. Lungs CTAB. Heart RRR, nl s1 and s2 no murmur. Abdomen: Multiple midline scars; vertical RLQ scar (prior urostomy); transverse scar. Abdominal exam reveals no tenderness, no masses, and specifically, no hernias in midline or RLQ. Exam of bilateral groins reveals likely right hydrocele, and mild bilateral impulses with valsalva. Extremities without edema. CT from September 2017 reviewed. No abdominal wall or incisional hernias. Fat containing bilateral inguinal hernias, but no bowel involvement, and these hernias are relatively small. The neobladder is in the RLQ in the vicinity of his complaint. a/P: Unsure etiology of RLQ pain. No hernias in this location, and his inguinal hernias are unlikely to be cause of pain higher on his abdominal wall. Unsure how symptomatic his inguinal hernias are either. Suggest observation, and tracking symptoms. He has an appointment with his urologist for the hydrocele. He may also need a urology appointment within [facility] to make sure symptoms aren't arising from his reconstructed bladder (unlikely). Repair of bilateral inguinal hernias would need to be done open given prior abdominal operations. Procedure, risks discussed including risks of bleeding, infection, recurrence, chronic groin pain. Consideration could be given to dx laparoscopy and lysis of adhesions in an attempt to relieve his pain, but this would carry risks of bowel or neobladder injury, and likely be complex. He will consider options and he will contact our office when he wishes to discuss. 45 minutes spent with patient, with greater than 50% spent in education and counseling. Elsa Rogers MD [facility] 08-18-2017 [facility] HNO ID: [id number] Author: Janell Samson Service: Urology Author Type: Physician Type: Letter Filed: 09/02/2017 2:55 PM Note Text: September 01, 2017 German Quiñones M.D. [address] [place] [id number] NAME: MARY NELSON [facility] NO.: [id number] DATE OF SERVICE: 08/18/2017 Dear German: I am writing in regards to our mutual patient, Mary Nelson, who as you know, has a transurethral ureterostomy, neurogenic bladder and status post augmentation cystoplasty in the past. He was admitted for gross hematuria and SOURAV. He was seen yesterday in followup for this admission. A urogram was performed, which demonstrated a very high confluence transurethral ureterostomy and an augmentation cystoplasty without any filling defects. He had urodynamics, which demonstrated a good capacity bladder to over 500 mL in low pressure. He did reflux up his ureter, which is suggested that he does not have obstruction there. We discussed if he has progression of his medical disease or worsening hydronephrosis, that he would need the antegrade nephrostogram. We did check creatinine yesterday, which demonstrated a creatinine of 1.8, which is stable from his prior visit here. I am including copies of his studies for your records. I recommend he get a kidney function test with serum creatinine in approximately 6 months and repeat ultrasound imaging in 6-12 months. If you have any questions or concerns, please do not hesitate to contact me. Sincerely yours, Janell Samson M.D. Date Dictated: 09/01/2017 Date Typed: [facility] 09/01/2017 JOB# [id number] Enclosure: Copy of clinic note, urodynamics report and copy of the CD with the CTU dated 08/18/[address] Quiñones. Normal [facility] CNOVon 08-18-2017 CNOV Office Visit (UROSMN ) -------- MARY NELSON ([id number]) 1970 M Date Time Provider Department 08/18/17 3:00 PM JANELL SAMSON During your visit today, we recorded the following information about you: Pura Ferrer RN 08/18/2017 4:25 PM Signed [facility] URODYNAMICS LAB URODYNAMIC PROCEDURE NOTE ID Verified by: Pura Frerer RN with name and birthdate. Procedure instructions reviewed with patient prior to procedure: Yes Currently experiencing pain: No 0 on a scale of 0 to 10 on a scale of 0-10. Does the patient have any concerns about safety in the home/falls?: Not at risk for falls Has the patient had 2 falls in the last year or 1 fall with injury or currently using assistive device (walker, cane, wheelchair, crutches): No What interventions were put in place to prevent falls during this visit: Increased observations by caregivers Has patient had any history of Mitral Valve prolapse: No MEDS:NONE Has patient had any history of prosthetics: No MEDS: NONE Latex allergy: No Iodine allergy: No Females- Is patient : No B/O UA: YES negative nitrites and leukocytes UROFLOWMETRY: Pt does ISC at home-Cathed for 120ml. CYSTOMETROGRAM Subtracted:Yes Video: Yes EMG: Yes First Sensation: 52 ml Strong desire: 349 ml Max. capacity: 505 ml Maximum filling detrusor pressure 7 cm of water Detrusor overactivity associated with urge: No Detrusor overactivity associated with leakage: No Was patient assessed for VLPP / UPP No Leaks urine with valsalva /coughs: No Lowest Leak point pressure: n/a cm of water at n/a ml PRESSURE-FLOW VOIDING STUDY Did patient void with catheters in place No Voided: 0 ml. Pt caths at home. Cathed post test for 510ml. Max Voiding Detrusor Pressure n/acm H2O P det Q max (Max Flow): n/a cm H2O Maximum Flow Rate: n/a ml/sec Average Flow Rate: n/a ml/sec Fluro time: see xray record. min Vaginal Packing for prolapse support: No Comments: Pdet started to rise at 500ml infused. reflux noted both sides on xray. Please use Urodynamic Graph. Pt given verbal home going instructions. Pt states an understanding of instructions given. Pura Samson MD 08/18/2017 5:01 PM Addendum Creatinine Date Value Ref Range Status 07/21/2017 1.86 (A) 0.7 - 1.3 MG/DL Final 07/16/2017 1.72 (H) 0.73 - 1.22 mg/dL Final 07/15/2017 1.78 (H) 0.73 - 1.22 mg/dL Final 07/14/2017 1.90 (H) 0.73 - 1.22 mg/dL Final Creatinine (POCT) Date Value Ref Range Status 08/18/2017 1.80 (A) 0.7 - 1.4 mg/dL Final Admitted in [facility] on CKD with gross hematuria and B hydro after cysto. Resolved to baseline. Ordered CTU and VUDS today. CTU showed chronic changes to kidneys- parenchymal thinning and B severe scars and cysts. Urodynamics Interpretation: Uroflow: NA PVR: cathed for 100cc CMG: bladder filled at low pressure to over 500 (cathed for 510). Very small rise pressure after about 480 cc to max 7 mmHg. Stable throughout. Pressure Flow NA EMG: no evidence of DESD or abnormal patterns noted Fluoro: Aug and bladder appear fine, there is reflux up to high confluence TU-U and reflux to both kidneys at 500 cc Impression: Changes of chronic reflux/retention likely. Ureter does not appear to be acutely obstructed DW Dr. Quiñones. The only way we could for sure rule out stx would be antegrade Ngrams. Given that he refluxes, I favor watching and checking BMP Q6 months. Strongly advised cathing freq to completion and irrigation of mucous BID. Provided instx and supplies. If he loses kidney function or has worse hydro, then B percs and antegrade Ngrams. They understand. Janell Samson MD 08/18/2017 5:56 PM Signed Addended by: JANELL SAMSON MD on: 08/18/2017 05:56 PM Modules accepted: Orders Referring Provider: JANELL SAMSON [[id number]] Allergies As of Date: 08/18/2017 Noted Allergy Reaction BACTRIM (SULFAMETHOXAZOLE-TRIMET H*07/07/2015 4 - Hives Date Reviewed: 08/18/2017 Reviewed by: Pura Ferrer RN - Fully Assessed Primary Visit Diagnosis:Neurogenic bladder [N31.9] Other Visit Diagnosis:CKD (chronic kidney disease) stage 3, GFR 30-59 ml/min [N18.3] Order(s):BASIC METABOLIC PNL [SQBMP] Order #: [id number] FUTURE Prescriptions as of 08/18/2017 Sig: HYDROCODONE 5 MG-ACETAMINOPHE* NORCO 5-325 MG TABS ALLOPURINOL 100 MG TABLET Take 100 mg by mouth once cecilia* SODIUM CHLORIDE 0.9 % INTRAVE* Inject 500 mL intravenously a* LISINOPRIL (BULK) MISC METOPROLOL SUCCINATE ORAL Take by mouth. ISOSORBIDE DINITRATE ORAL Take by mouth. TRIMETHOPRIM ORAL Take by mouth. BRILINTA 90 MG TABLET ASPIR-81 ORAL Take 1 tablet by mouth once d* LOSARTAN 100 MG TABLET Take 100 mg by mouth once cecilia* CARVEDILOL 25 MG TABLET Take 25 mg by mouth twice cecilia* AMLODIPINE 5 MG TABLET Take 10 mg by mouth once luan* ATORVASTATIN 10 MG TABLET Take 10 mg by mouth once luan* GABAPENTIN 100 MG CAPSULE Take 100 mg by mouth three ti* ESCITALOPRAM 5 MG TABLET Take 5 mg by mouth once daily. ERGOCALCIFEROL (VITAMIN D2) 5* Take 50,000 Units by mouth on* OMEGA-3 FATTY ACIDS-VITAMIN E* Take 1 capsule by mouth. MULTIVITAMIN TABLET Take 1 tablet by mouth once d* Medication notes this encounter HYDROCODONE 5 MG-ACETAMINOPHEN 325 MG TABLET >> Pura Ferrer RN 08/18/2017 3:33 PM >> PURA FERRER RN FriAug 18, 2017 3:33 PM [facility] LOSARTAN 100 MG TABLET >> Pura Ferrer RN 08/18/2017 3:30 PM >> PURA FERRER RN FriAug 18, 2017 3:30 PM not taking CARVEDILOL 25 MG TABLET >> Pura Ferrer RN 08/18/2017 3:30 PM >> PURA FERRER RN FriAug 18, 2017 3:30 PM not taking AMLODIPINE 5 MG TABLET >> Pura Ferrer RN 08/18/2017 3:29 PM >> PURA FERRER RN FriAug 18, 2017 3:29 PM not taking Problem List As Of Date 08/18/2017 Noted Resolved Right lower quadrant abdominal pain [R10.31] INVALID FOR* Bilateral inguinal hernia without obstruction o*INVALID FOR* Incisional hernia, without obstruction or gangr*INVALID FOR* Numbness [R20.0] INVALID FOR* Urinary retention [R33.9] INVALID FOR* Nicotine use disorder, F17.2 [F17.200] INVALID FOR* Hydronephrosis [N13.30] INVALID FOR* Neurogenic bladder [N31.9] INVALID FOR* Visit Notes: >> Pura Ferrer RN FriAug 18, 2017 3:33 PM Status: Signed [facility] URODYNAMICS LAB URODYNAMIC PROCEDURE NOTE ID Verified by: Pura Ferrer RN with name and birthdate. Procedure instructions reviewed with patient prior to procedure: Yes Currently experiencing pain: No 0 on a scale of 0 to 10 on a scale of 0-10. Does the patient have any concerns about safety in the home/falls?: Not at risk for falls Has the patient had 2 falls in the last year or 1 fall with injury or currently using assistive device (walker, cane, wheelchair, crutches): No What interventions were put in place to prevent falls during this visit: Increased observations by caregivers Has patient had any history of Mitral Valve prolapse: No MEDS:NONE Has patient had any history of prosthetics: No MEDS: NONE Latex allergy: No Iodine allergy: No Females- Is patient : No B/O UA: YES negative nitrites and leukocytes UROFLOWMETRY: Pt does ISC at home-Cathed for 120ml. CYSTOMETROGRAM Subtracted:Yes Video: Yes EMG: Yes First Sensation: 52 ml Strong desire: 349 ml Max. capacity: 505 ml Maximum filling detrusor pressure 7 cm of water Detrusor overactivity associated with urge: No Detrusor overactivity associated with leakage: No Was patient assessed for VLPP / UPP No Leaks urine with valsalva /coughs: No Lowest Leak point pressure: n/a cm of water at n/a ml PRESSURE-FLOW VOIDING STUDY Did patient void with catheters in place No Voided: 0 ml. Pt caths at home. Cathed post test for 510ml. Max Voiding Detrusor Pressure n/acm H2O P det Q max (Max Flow): n/a cm H2O Maximum Flow Rate: n/a ml/sec Average Flow Rate: n/a ml/sec Fluro time: see xray record. min Vaginal Packing for prolapse support: No Comments: Pdet started to rise at 500ml infused. reflux noted both sides on xray. Please use Urodynamic Graph. Pt given verbal home going instructions. Pt states an understanding of instructions given. Pura Ferrer RN Follow-up and Disposition History Recorded Encounter Status:Closed by PURA FERRER RN on 08/18/[address] [facility] [address] 3D POST PROCESSINGon - CT 3D POST PROCESSING * * *Final Report* * * DATE OF EXAM: Aug 18 2017 3:10PM [facility] [id number] - CT 3D POST PROCESSING / PROCEDURE REASON: multiple diagnoses * * * * Physician Interpretation * * * * EXAMINATION: CT ABDOMEN AND PELVIS WITHOUT AND WITH IV CONTRAST, INCLUDING EXCRETORY PHASE IMAGING (CT UROGRAM) 3D RECONSTRUCTIONS CLINICAL HISTORY: 47 y/o male with childhood neurogenic bladder possible secondary to spina bifida with history of prior non-continent bladder augmentation, s/p reversal though with augmented patch, w/ L to R TUU who was transferred for anuria and bilateral hydroureteronephrosis w/ [facility] to Cr 2.4 after cystoscopy for 1 week of gross hematuria. . TECHNIQUE: CT urogram protocol including unenhanced, renal parenchymal phase and excretory phase renal imaging was obtained following IV contrast. Two-hundred ml of normal saline was also administered. No oral contrast was given. 3D image post-processing was performed at the request of the referring physician, on the CT scanner workstation under physician supervision. MQ: CTU_2 Contrast: IV: 150 ml of Omnipaque 300 Oral Contrast: None CT Radiation dose: Integrated dose-length product (DLP) for this visit = 1758 mGy*cm. CT Dose Reduction Employed: Automated exposure control (AEC) COMPARISON: 07/10/2017 RESULT: Kidneys and urinary tract: Right: Multifocal areas of parenchymal thinning/scarring. There is a 1.4 cm upper pole cyst. There are no renal calculi or masses. There is mild to moderate hydroureteronephrosis, which has improved compared to prior study. No obvious delayed parenchymal enhancement or excretion. Left: Multifocal areas of parenchymal thinning/scarring. There are no renal calculi or masses. There is mild to moderate hydroureteronephrosis, which has improved compared to prior study. No obvious delayed parenchymal enhancement or excretion. Bladder: There changes from bladder reconstruction/augmentat ion. There is no wall thickening of the bladder. No calculi. Abdomen and Pelvis: Liver: Fatty infiltration of liver parenchyma, with geographic areas of fat sparing.. Biliary: No bile duct dilation. Gallbladder is unremarkable. Spleen: No mass. No splenomegaly. Pancreas: No mass or duct dilation. Adrenals: No mass. GI tract: No dilation or wall thickening. Lymph nodes: No abdominal or pelvic lymphadenopathy. Mesentery/Peritoneum: No ascites or mass. Retroperitoneum: No mass. Vasculature: The celiac axis and SMA are patent. The portal vein and branches, splenic vein, SMV, and hepatic veins are patent. Arterial atherosclerotic disease without aneurysm. Pelvis: No mass, ascites or fluid collection. Bones/Soft Tissues: Fat-containing LEFT inguinal hernia. There is also a hydrocele or loculated fluid along the RIGHT internal canal. Lung Bases: No acute findings. IMPRESSION: Mild to moderate bilateral hydroureteronephrosis, which has improved compared to prior study. No discrete obstructive process or obvious delayed renal parenchymal enhancement and excretion in the current exam. Changes from bladder reconstruction/augmentat ion, with interval removal of Bennett catheter. Asbestos Coverer: JHONNY Transcribe Date/Time: Aug 18 2017 3:12P Dictated by : ESMER JENSEN MD This examination was interpreted and the report reviewed and electronically signed by: ESMER JENSEN MD on Aug 18 2017 3:26PM EST [id number] Normal [facility] CT UROGRAM WO/W IVCONon 08-03 CT UROGRAM WO/W IVCON * * *Final Report* * * DATE OF EXAM: Aug 18 2017 3:10PM [facility] [address]60 - CT UROGRAM WO/W IVCON / PROCEDURE REASON: multiple diagnoses * * * * Physician Interpretation * * * * EXAMINATION: CT ABDOMEN AND PELVIS WITHOUT AND WITH IV CONTRAST, INCLUDING EXCRETORY PHASE IMAGING (CT UROGRAM) 3D RECONSTRUCTIONS CLINICAL HISTORY: 47 y/o male with childhood neurogenic bladder possible secondary to spina bifida with history of prior non-continent bladder augmentation, s/p reversal though with augmented patch, w/ L to R TUU who was transferred for anuria and bilateral hydroureteronephrosis w/ [facility] to Cr 2.4 after cystoscopy for 1 week of gross hematuria. . TECHNIQUE: CT urogram protocol including unenhanced, renal parenchymal phase and excretory phase renal imaging was obtained following IV contrast. Two-hundred ml of normal saline was also administered. No oral contrast was given. 3D image post-processing was performed at the request of the referring physician, on the CT scanner workstation under physician supervision. MQ: CTU_2 Contrast: IV: 150 ml of Omnipaque 300 Oral Contrast: None CT Radiation dose: Integrated dose-length product (DLP) for this visit = 1758 mGy*cm. CT Dose Reduction Employed: Automated exposure control (AEC) COMPARISON: 07/10/2017 RESULT: Kidneys and urinary tract: Right: Multifocal areas of parenchymal thinning/scarring. There is a 1.4 cm upper pole cyst. There are no renal calculi or masses. There is mild to moderate hydroureteronephrosis, which has improved compared to prior study. No obvious delayed parenchymal enhancement or excretion. Left: Multifocal areas of parenchymal thinning/scarring. There are no renal calculi or masses. There is mild to moderate hydroureteronephrosis, which has improved compared to prior study. No obvious delayed parenchymal enhancement or excretion. Bladder: There changes from bladder reconstruction/augmentat ion. There is no wall thickening of the bladder. No calculi. Abdomen and Pelvis: Liver: Fatty infiltration of liver parenchyma, with geographic areas of fat sparing.. Biliary: No bile duct dilation. Gallbladder is unremarkable. Spleen: No mass. No splenomegaly. Pancreas: No mass or duct dilation. Adrenals: No mass. GI tract: No dilation or wall thickening. Lymph nodes: No abdominal or pelvic lymphadenopathy. Mesentery/Peritoneum: No ascites or mass. Retroperitoneum: No mass. Vasculature: The celiac axis and SMA are patent. The portal vein and branches, splenic vein, SMV, and hepatic veins are patent. Arterial atherosclerotic disease without aneurysm. Pelvis: No mass, ascites or fluid collection. Bones/Soft Tissues: Fat-containing LEFT inguinal hernia. There is also a hydrocele or loculated fluid along the RIGHT internal canal. Lung Bases: No acute findings. IMPRESSION: Mild to moderate bilateral hydroureteronephrosis, which has improved compared to prior study. No discrete obstructive process or obvious delayed renal parenchymal enhancement and excretion in the current exam. Changes from bladder reconstruction/augmentat ion, with interval removal of Bennett catheter. Asbestos Coverer: JHONNY Transcribe Date/Time: Aug 18 2017 3:12P Dictated by : ESMER JENSEN MD This examination was interpreted and the report reviewed and electronically signed by: ESMER JENSEN MD on Aug 18 2017 3:26PM EST [id number] [facility] PROGRESSon 08-18-2017 Protein mass conc HNO ID: [id number] Author: Janell Samson Service: (none) Author Type: Physician Type: Progress Notes Filed: 08/18/2017 5:01 PM Note Text: Creatinine Date Value Ref Range Status 07/21/2017 1.86 (A) 0.7 - 1.3 MG/DL Final 07/16/2017 1.72 (H) 0.73 - 1.22 mg/dL Final 07/15/2017 1.78 (H) 0.73 - 1.22 mg/dL Final 07/14/2017 1.90 (H) 0.73 - 1.22 mg/dL Final Creatinine (POCT) Date Value Ref Range Status 08/18/2017 1.80 (A) 0.7 - 1.4 mg/dL Final Admitted in [facility] on CKD with gross hematuria and B hydro after cysto. Resolved to baseline. Ordered CTU and VUDS today. CTU showed chronic changes to kidneys- parenchymal thinning and B severe scars and cysts. Urodynamics Interpretation: Uroflow: NA PVR: cathed for 100cc CMG: bladder filled at low pressure to over 500 (cathed for 510). Very small rise pressure after about 480 cc to max 7 mmHg. Stable throughout. Pressure Flow NA EMG: no evidence of DESD or abnormal patterns noted Fluoro: Aug and bladder appear fine, there is reflux up to high confluence TU-U and reflux to both kidneys at 500 cc Impression: Changes of chronic reflux/retention likely. Ureter does not appear to be acutely obstructed DW Dr. Quiñones. The only way we could for sure rule out stx would be antegrade Ngrams. Given that he refluxes, I favor watching and checking BMP Q6 months. Strongly advised cathing freq to completion and irrigation of mucous BID. Provided instx and supplies. If he loses kidney function or has worse hydro, then B percs and antegrade Ngrams. They understand. Normal [facility] Protein mass conc HNO ID: [id number] Author: KEY Gonzalez (Ct) Service: Radiology Author Type: Clinical Pinion Polisher Type: Progress Notes Filed: 08/18/2017 3:05 PM Note Text: Radiology Service Progress Note PATIENT NAME: Mary Nelson DATE OF SERVICE: August 18, 2017 TIME: 2:50 PM PATIENT IDENTITY VERIFICATION COMPLETED USING TWO (2) METHODS: Patient confirmed name verbally and ID band matches.. PATIENT GENDER DATA: Male PATIENT RELEVANT IMPLANT DATA REVIEWED: Yes RADIOLOGY DEPARTMENT: CT; Exam(s) Completed: Abdomen/Pelvis urogram PERIPHERAL IV DATA: Site assessment: Clean,Dry and Intact, Site disposition Discontinued SIGNED BY: KEY Gonzalez August 18, 2017 2:50 PM [facility] Protein mass conc HNO ID: [id number] Author: Vanessa (Rn) CRISTIAN Miller Service: Radiology Author Type: Registered Nurse Type: Progress Notes Filed: 08/18/2017 12:48 PM Note Text: Radiology Service Progress Note PATIENT NAME: Mary Nelson DATE OF SERVICE: August 18, 2017 TIME: 12:26 PM PATIENT WEIGHT: 227 LBS PATIENT IDENTITY VERIFICATION COMPLETED USING TWO (2) METHODS: Patient confirmed name verbally and ID band matches.. PATIENT GENDER DATA: Male CONTRAST INDUCED NEPHROPATHY RISK FACTORS: Known Chronic Kidney Disease (CKD) CREATININE: Creatinine Date Value Ref Range Status 07/21/2017 1.86 (A) 0.7 - 1.3 MG/DL Final 07/16/2017 1.72 (H) 0.73 - 1.22 mg/dL Final 07/15/2017 1.78 (H) 0.73 - 1.22 mg/dL Final Creatinine (POCT) Date Value Ref Range Status 08/18/2017 1.80 (A) 0.7 - 1.4 mg/dL Final eGFR-All Other Races Date Value Ref Range Status 07/16/2017 42 . Final Comment: eGFR (Estimated GFR) Units of measure: mL/min/1.73 meters squared eGFR is derived from the reexpressed MDRD Study equation using the following parameters: serum creatinine, age, gender and race. The creatinine assay has been calibrated to be traceable to IDMS. An eGFR <60 mL/min/1.73m2 for >3 months is consistent with chronic kidney disease. Refer to KDOQI guidelines for clinical interpretation. In patients with unstable renal function, e.g. those with acute kidney injury, the eGFR may not accurately reflect actual GFR. eGFR-All Other Races (POCT) Date Value Ref Range Status 08/18/2017 40 mL/min/1.73 m2 Final eGFR- Date Value Ref Range Status 07/16/2017 51 Final eGFR- (POCT) Date Value Ref Range Status 08/18/2017 49 mL/min/1.73 m2 Final P.O.C.T. RESULTS: POC done: Yes, See Lab Tab August 18, 2017 TREATMENT: Dr. Motta notified., IV Hydration: Normal Saline solution 500 ml over 2 hours. and IV Infusion: started at 1245 IV infusion, completed at 1445. ALLERGIES: Reviewed and unchanged CONTRAST ALLERGY: NO. IV SITE: Ambulatory: A peripheral IV was started in the Left antecubital site with a Angio cath: 20 gauge. and A Saline lock was inserted per protocol IV SITE APPEARANCE: Clean,Dry and Intact SIGNED BY: Vanessa Miller RN August 18, 2017 12:26 PM [facility] BRIEF OP NOTon 08-04-2017 BRIEF OP NOT HNO ID: [id number] Author: Alberto Paula Service: Radiology Author Type: Physician Type: Brief Op Note Filed: 08/04/2017 3:03 PM Note Text: Successful removal of right internal jugular tunneled catheter with local anesthesia. No immediate complication. [facility] IR CVC TUNNEL W/O PORT REMOV Duy 08-04-2017 IR CVC TUNNEL W/O PORT REMOVE * * *Final Report* * *DATE OF EXAM: Aug 04 2017 2:40PM [facility] 7670 - IR CVC TUNNEL W/O PORT REMOVE / REASON: SEPSIS * * * * Physician Interpretation * * * * PROCEDURE: TUNNELED CENTRAL VENOUS CATHETER REMOVALDATE: 08/04/2017INDICATION: Completion of therapy. History of sepsis.ENCOUNTER: InitialCOMPARISON: Images from Central venous catheter placement performed on 07/16/2017.TECHNIQUE:Pat ient was brought to the interventional radiology nurses suite and placed in supine position. The indwelling right internal jugular central venous catheter was prepped and draped in the usual sterile fashion.Following timeout, the percutaneous central venous catheter skin tract was anesthetized with 1% lidocaine. Blunt dissection was then utilized to free the catheter from the tunnel and the catheter was then removed. Manual pressure was applied at the right neck until hemostasis was achieved. Sterile dressings were applied. Catheter was intact.FINDINGS:Successf ul removal of right internal jugular tunneled central venous catheter.IMPRESSION:Succ essful right internal jugular tunneled central venous catheter removal.Asbestos Coverer : JHONNY Transcribe Date/Time: Aug 04 2017 3:41PDictated by : ALBERTO JUAREZ, MDThis examination was interpreted and the report reviewed and electronically signed by: ALBERTO PAULA MD on Aug 04 2017 3:45PM [facility] NURSING PROGon 08-04-2017 NURSING PROG HNO ID: [id number]: Iraida FayRn) Tessa, RNService: RadiologyAuthor Type: Registered NurseType: Nursing Progress NoteFiled: 08/04/2017 3:03 PMNote Text:Nursing Progress Note Topic of Note:Mary [id number] Pt brought back to hydration room, pt positioned in recling chair.Dressing to tunneled PICC removed, area preppedCatheter removed per Dr. Paula, tip intact at 28 cm dressing applied oversite. Instructions [id number] pt discharged.This note was completed by: Iraida Zarate RN [facility] HOSPon 07-31-2017 HOSP Patient:Berto Nelson N: Height:6' 1(1.854 m)Weight:227 lb (102.967 kg)Outpatient Medications as of 08/04/17:LISINOPRIL, BULK, MISCMETOPROLOL SUCCINATE ORALISOSORBIDE DINITRATE ORALTRIMETHOPRIM ORALBRILINTA 90 mg tabletASPIRIN (ASPIR-81 ORAL)losartan (COZAAR) 100 mg tabletcarvedilol (COREG) 25 mg tabletamLODIPine (NORVASC) 5 mg tabletatorvastatin (LIPITOR) 10 mg tabletgabapentin (NEURONTIN) 100 mg capsuleallopurinol (ZYLOPRIM) 100 mg tabletescitalopram oxalate (LEXAPRO) 5 mg tabletergocalciferol, vitamin D2, (DRISDOL) 50,000 unit capsuleOmega-3 Fatty Acids-Vitamin E 1,000 mg capmultivitamin tabletAdmission/Clinic Administered Medications as of 08/04/17:Patient has no admission medications.Problem List:Right lower quadrant abdominal pain [R10.31]Bilateral inguinal hernia without obstruction or gangrene [K40.20]Incisional hernia, without obstruction or gangrene [K43.2]Numbness [R20.0]Urinary retention [R33.9]Nicotine use disorder, F17.2 [F17.200]Hydronephrosis [N13.30]Neurogenic bladder [N31.9]Allergies:Bactrim [Sulfamethoxazole-Trimet hoprim]Date Verified: 08/04/17Lab ValuesLab Value Units Date High LowPOTA* 3.6 mmol/L 07/16/2017 5.1 3.7HEMA* 44.5 % 07/21/2017 54 40Progress Notes ([facility]Parker Norris Hose Inspector And Patcher 07/30/2017 4:22 PM SignedPt called requesting an order for his home care nurse to remove his picc linefaxed to сергей @ [phone] pt Mary Ellen Norris Admin AsstProgress Notes ([facility]):Indira Clarke, RN, RN 07/25/2017 2:39 PM SignedPt scheduled for trevor removal, states he has been off of his Brillinta since unsure when he needs to restart it will be speaking with program management intern benji let us know. Pre-procedure instructions gone over. Normal [facility] .Auto Diffon 07-06-2017 Basophils Auto #/vol (Bld) 0.10 10 3/mcL Normal 0.00-0.19 [facility] ([place]) Comment on above: Performed By: #### C GEE SCOTT ANEU, GFR, BMP ####[address] [place], [place] [address] Basophils/100 WBC Auto (Bld) 0.9 % Normal 0.0-2.5 [facility] ([place]) Comment on above: Performed By: #### C GEE SCOTT ANEU, GFR, BMP ####[id number] [place], [place] [address] Eosinophils 0.30 10 3/mcL Normal 0.00-0.40 [facility] ([place]) Comment on above: Performed By: #### C GEE SCOTT ANEU, GFR, BMP ####[address] [place], [place] [address] Eosinophils/100 leukocytes 3.8 % Normal 0.0-7.0 [facility] ([place]) Comment on above: Performed By: #### C GEE SCOTT ANEU, GFR, BMP ####[address] [place], [place] [address] Lymphocytes 1.70 10 3/mcL Normal 0.77-3.85 [facility] ([place]) Comment on above: Performed By: #### C BC, ADIFF, ANEU, GFR, BMP ####[address] [place], [place] [address] Lymphocytes/100 leukocytes 22.1 % Normal 10.0-50.0 [facility] ([place]) Comment on above: Performed By: #### C BC, ADIFF, ANEU, GFR, BMP ####[address] [place], [place] [address] Monocytes 0.60 10 3/mcL Normal 0.15-1.00 [facility] ([place]) Comment on above: Performed By: #### C BC, ADIFF, ANEU, GFR, BMP ####[address] [place], [place] [address] Monocytes/100 leukocytes 7.3 % Normal 1.7-13.0 [facility] ([place]) Comment on above: Performed By: #### C BC, ADIFF, ANEU, GFR, BMP ####[address] [place], [place] [address] Neutrophils/100 WBC Auto (Bld) 65.9 % Normal 37.0-80.0 [facility] ([place]) Comment on above: Performed By: #### C BC, ADIFF, ANEU, GFR, BMP ####[address] [place], [place] [address] .GFRon 07-06-2017 eGFR (non-black) 39 ml/min/1.73sqm Normal A [facility] ([place]) Comment on above: Result Comment: GFR Population mean for , Non- Americans Ages 20-29 = 116 mL/min/1.73 sq.m. Ages 30-39 = 107 mL/min/1.73 sq.m. Ages 40-49 = 99 mL/min/1.73 sq.m. Ages 50-59 = 93 mL/min/1.73 sq.m. Ages 60-69 = 85 mL/min/1.73 sq.m. Ages 70+ = 75 mL/min/1.73 sq.m.Chronic Kidney Disease: Less than 60 mL/min/1.73 square metersEnd Stage Renal Disease: Less than 15 mL/min/1.73 square meters Performed By: #### C BC ADIFF ANEU, GFR, BMP ####[address] [place], [place] [address] eGFR (non-black) 47 ml/min/1.73sqm Normal A [facility] ([place]) Comment on above: Result Comment: GFR Population mean for , Non- Americans Ages 20-29 = 116 mL/min/1.73 sq.m. Ages 30-39 = 107 mL/min/1.73 sq.m. Ages 40-49 = 99 mL/min/1.73 sq.m. Ages 50-59 = 93 mL/min/1.73 sq.m. Ages 60-69 = 85 mL/min/1.73 sq.m. Ages 70+ = 75 mL/min/1.73 sq.m.Chronic Kidney Disease: Less than 60 mL/min/1.73 square metersEnd Stage Renal Disease: Less than 15 mL/min/1.73 square meters Performed By: #### C BCGEE ANEU, GFR, BMP ####[address] [place], [place] [address] .NEUABSon 07-06-2017 Neutrophils 5.20 10 3/mcL Normal 2.85-6.16 [facility] ([place] Comment on above: Performed By: #### C BC ADIFF ANEU, GFR, BMP ####[address] [place], [place] [address] .Urinalysis Microscopic (AO) on 07-06-2017 UA Squam Epithelial None Seen Normal None Seen [facility] ([place]) Comment on above: Performed By: #### U A, UAMICAO ####[address] [place], [place] [address] UA WBC 0-5 Abnormal None Seen [facility] ([place]) Comment on above: Performed By: #### U A, UAMICAO ####[address] [place], [place] [address] Urine, erythrocytes LOADED Abnormal None Seen [facility] ([place]) Comment on above: Performed By: #### U Ammon UAMICAO ####[address] [place], [place] [address] BMPon 07-06-2017 Glucose mass conc 110 mg/dL High 70-105 [facility] ([place]) Comment on above: Performed By: #### C BC, ADIFF, ANEU, GFR, BMP ####[address] [place], [place] [address] BUN/Creatinine Ratio 9 ratio Normal 7-27 [facility] ([place]) Comment on above: Performed By: #### C BC, ADIFF, ANEU, GFR, BMP ####[address] [place] [address] Creatinine 1.8 mg/dL High 0.6-1.2 [facility] ([place]) Comment on above: Performed By: #### C BC, ADIFF, ANEU, GFR, BMP ####[address] [place] [address] CO2 25 mmol/L Normal 22-29 [facility] ([place] Comment on above: Performed By: #### C BC, ADIFF, ANEU, GFR, BMP ####[address] [place] [address] Electrolyte Balance 8.0 mEq/L Normal [facility] ([place]) Comment on above: Performed By: #### C BC, ADIFF, ANEU, GFR, BMP ####[address] [place], [place] [address] Calcium 9.3 mg/dL Normal 8.4-10.2 [facility] ([place]) Comment on above: Performed By: #### C BC, ADIFF, ANEU, GFR, BMP ####[address] [place], [place] [address] Urea nitrogen 16.2 mg/dL Normal 7.0-18.0 [facility] ([place]) Comment on above: Performed By: #### C BC, ADIFF, ANEU, GFR, BMP ####[address] [place], [place] [address] Chloride 105 mmol/L Normal 98-107 [facility] ([place] Comment on above: Performed By: #### C BC, ADIFF, ANEU, GFR, BMP ####[address] [place], [place] [address] Potassium molar conc 4.4 mmol/L Normal 3.5-5.1 [facility] ([place]) Comment on above: Performed By: #### C BC, ADIFF, ANEU, GFR, BMP ####[address] [place], [place] [address] Sodium 138 mmol/L Normal 136-146 [facility] ([place] Comment on above: Performed By: #### C BC, ADIFF, ANEU, GFR, BMP ####[address] [place], [place] [address] CBCon 07-06-2017 Erythrocyte distribution width Auto Ratio (RBC) 13.9 % Normal 11.5-14.5 [facility] ([place] Comment on above: Performed By: #### C BC, ADIFF, ANEU, GFR, BMP ####[address] [place], [place] [address] Erythrocytes (RBC) 5.19 10 6/mcL Normal 4.04-6.13 [facility] ([place]) Comment on above: Performed By: #### C BC, ADIFF, ANEU, GFR, BMP ####[address] [place], [place] [address] Hematocrit (HCT) 45.7 % Normal 42.0-52.0 [facility] ([place] Comment on above: Performed By: #### C BC, ADIFF, ANEU, GFR, BMP ####[address] [place], [place] [address] Hemoglobin mass conc (Bld) 15.1 G/dL Normal 14.0-18.0 [facility] ([place] Comment on above: Performed By: #### C BC, ADIFF, ANEU, GFR, BMP ####[address] [place], [place] [address] MCH 29.0 pg Normal 27.0-31.2 [facility] ([place] Comment on above: Performed By: #### C BC, ADIFF, ANEU, GFR, BMP ####[address] [place], [place] [address] MCHC mass conc (RBC) 33.0 G/dL Normal 31.8-35.4 [facility] ([place]) Comment on above: Performed By: #### C BC, ADIFF, ANEU, GFR, BMP ####[address] [place], [place] [address] MCV 88.0 fL Normal 80.0-94.0 [facility] ([place] Comment on above: Performed By: #### C BC, ADIFF, ANEU, GFR, BMP ####[address] [place], [place] [address] Platelet mean volume (PMV) 7.8 fL Normal 7.4-10.4 [facility] ([place]) Comment on above: Performed By: #### C BC, ADIFF, ANEU, GFR, BMP ####[address] [place], [place] [address] Platelets 208 10 3/mcL Normal 130-400 [facility] ([place]) Comment on above: Performed By: #### C BC, ADIFF, ANEU, GFR, BMP ####[address] [place], [place] [address] WBC (Leukocytes) 7.90 10 3/mcL Normal 4.60-10.80 [facility] ([place]) Comment on above: Performed By: #### C BC, ADIFF, ANEU, GFR, BMP ####[address] [place], [place] [address] CT ABDOMEN/PELVIS W/O CONTRA STon 07-06-2017 CT ABDOMEN/PELVIS W/O CONTRAST ORIGINALCT abdomen and pelvis without contrast, stone protocol CLINICAL STATEMENT: abdominal pain, kidney disease, hematuria COMPARISON: None This exam was performed according to our departmental dose-optimization program which includes automated exposure control, adjustment of the mA and/or kVp according to patient size and/or use of iterative reconstruction technique where applicable. Findings: The kidneys show no calculus or hydronephrosis, but the RIGHT kidney is atrophic with evidence of scarring. There is evidence of prior urinary diversion. The ureters appear to connect together, connecting to a pouch into the bladder Within the limits of a noncontrast CT, other viscera show no gross acute abnormalities. No free fluid collection is seen. Some fatty infiltration of the liver noted. Evidence of prior surgery with surgical suture material in the cecum. A small right-sided hydrocele partially visualized. IMPRESSION: No acute process. No urinary tract calculus or hydronephrosis. Atrophic RIGHT kidney with evidence of scarring. Likely prior urinary diversion with post surgical changes. Please correlate with the patient's prior surgical history. Interpreted By: Herberth Quinteros DOPreliminary Report By: Herberth Quinteros DOElectronically Signed By: Herberth Quinteros DO Dictated Date: 07/06/2017 11:00:44 AM Prelim Date: 07/06/2017 11:00:44 AM Sign Date: 07/06/2017 11:12:26 AM [facility] ([place]) [facility] Note on 07-06-2017 [facility] Note Normal [facility] ([place]) Pat Eduon 07-06-2017 Pat Edu [facility] ([place]) Patient Summary Documentson 07-06-2017 Patient Summary Documents Normal [facility] [place]) UAon 07-06-2017 UA Specimen Type Catheter Normal [facility] ([place]) Comment on above: Performed By: #### U A, UAMICAO ####[address] [place], [place] [address] UA Appear CLOUDY Normal [facility] ([place] Comment on above: Performed By: #### U A, UAMICAO ####[address] [place], [place] [address] UA Blood LARGE Normal [facility] ([place] Comment on above: Performed By: #### U A, UAMICAO ####[address] [place], [place] [address] UA Leuk Est TRACE Normal [facility] ([place] Comment on above: Performed By: #### U A, UAMICAO ####[address] [place], [place] [address] UA Nitrite Negative Normal [facility] ([place] Comment on above: Performed By: #### U A, UAMICAO ####[address] [place], [place] [address] UA pH 7.0 Normal [facility] ([place] Comment on above: Performed By: #### U A, UAMICAO ####[address] [place], [place] [address] UA Protein 100 mg/dL Abnormal Negative [facility] ([place] Comment on above: Performed By: #### U A, UAMICAO ####[address] [place], [place] [address] UA Spec Grav 1.010 Abnormal [facility] ([place] Comment on above: Performed By: #### U A, UAMICAO ####[address] [place], [place] [address] UA Urobilinogen 0.2 E.U./dL Normal [facility] ([place] Comment on above: Performed By: #### U A, UAMICAO ####[address] [place], [place] [address] Urine, color RED Normal [facility] ([place] Comment on above: Performed By: #### U A, UAMICAO ####[address] [place], [place] [address] Urine, glucose Negative Normal [facility] ([place] Comment on above: Performed By: #### U A, UAMICAO ####[address] [place], [place] [address] Urine, ketones presence TRACE Normal [facility] ([place] Comment on above: Performed By: #### U A, UAMICAO ####[address] [place], [place] [address] Urine, urobilinogen SMALL Normal [facility] ([place]) Comment on above: Performed By: #### U A, UAMICAO ####[address] [place], [place] [address] Office Visit: [place] 11-02-19 Documentation of current medications (procedure) Done Invalid Interpretation Code [facility] Work Phone: Fall risk assessment No Invalid Interpretation Code [facility] Work Phone: Office Visit: [facility] 10-23-19 Documentation of current medications (procedure) Done Invalid Interpretation Code [facility] Work Phone: Fall risk assessment No [facility] Work Phone: Protein mass conc Done [facility] Work Phone: [phone] Replaced Document: Amina Hays 10-22-2016 EKG QRS axis 63 deg [facility] Work Phone: electrocardiogram interpretation Sinus Rhythm WITHIN NORMAL LIMITS Invalid Interpretation Code [facility] Work Phone: GE use only - for [employer] import when terms are not otherwise specified 392 ms Invalid Interpretation Code [facility] Work Phone: Interpretation Sinus Rhythm WITHIN NORMAL LIMITS [facility] Work Phone: P [place] -1 deg [facility] Work Phone: [phone] P wave axis, electrocardiogram -1 deg Invalid Interpretation Code [facility] Work Phone: PA Interval 150 ms [facility] Work Phone: PA interval, electrocardiogram 150 ms Invalid Interpretation Code [facility] Work Phone: Pulse (Heart Rate) 83 /min Invalid Interpretation Code [facility] Work Phone: QRS axis, electrocardiogram 63 deg Invalid Interpretation Code [facility] Work Phone: QRS Duration 90 ms [facility] Work Phone: QRS duration, electrocardiogram 90 ms Invalid Interpretation Code [facility] Work Phone: QT Interval new path ms [facility] Work Phone: QT interval, electrocardiogram new path ms Invalid Interpretation Code [facility] Work Phone: QTc Nash 392 ms [facility] Work Phone: T [place] 74 deg [facility] Work Phone: T wave axis, electrocardiogram 74 deg Invalid Interpretation Code [facility] Work Phone: External Other: Preferred Me thod of Contacton 10-03-2016 methcontact secmsg [facility] Work Phone: [phone] Patient's prefered method of contact secmsg Invalid Interpretation Code [facility] Work Phone: [phone] Clinical Lists Update: 09-30-2016 Hematocrit (HCT) 38.1 % Low [facility] Work Phone: [phone] Hematocrit Volume Fraction (Bld) 38.1 % Low [facility] Work Phone: [phone] Hemoglobin (HGB) 12.9 g/dL Low [facility] Work Phone: [phone] Platelets 192 10*3/mm3 Invalid Interpretation Code [facility] Work Phone: [phone] Platelets #/vol (Bld) 192 10*3/mm3 [facility] Work Phone: [phone] Clinical Lists Update: [facility] 09-29-2016 Anion gap 9 mmol/L Invalid Interpretation Code [facility] Work Phone: [phone] Anion gap molar conc 9 mmol/L [facility] Work Phone: [phone] BUN/Creatinine Ratio 7.3 mg/mg Low [facility] Work Phone: [phone] Calcium 7.8 mg/dL Low [facility] Work Phone: [phone] Chloride 110 mmol/L High [facility] Work Phone: [phone] Cholesterol 206 mg/dL Invalid Interpretation Code [facility] Work Phone: [phone] CO2 25 mmol/L Invalid Interpretation Code [facility] Work Phone: [phone] CO2 ppres (BldV) 25 mmol/L [facility] Work Phone: [phone] Creatinine 1.65 mg/dL High [facility] Work Phone: [phone] Glucose 116 mg/dL High [facility] Work Phone: [phone] Glucose mass conc 116 mg/dL High [facility] Work Phone: [phone] HDL Cholesterol 24 mg/dL Invalid Interpretation Code [facility] Work Phone: [phone] LDL Cholesterol 85 mg/dL Invalid Interpretation Code [facility] Work Phone: [phone] Potassium 3.8 mmol/L Invalid Interpretation Code [facility] Work Phone: [phone] Sodium 144 mmol/L Invalid Interpretation Code [facility] Work Phone: [phone] Triglyceride 150 mg/dL Invalid Interpretation Code [facility] Work Phone: [phone] Urea nitrogen 12 mg/dL Invalid Interpretation Code [facility] Work Phone: [phone] Office Visiton 06-28-2015 Documentation of current medications (procedure) Done Invalid Interpretation Code [facility] Work Phone: [phone] Protein mass conc yes [facility] Work Phone: [phone] Protein mass conc Done [facility] Work Phone: [phone] Smoking cessation education (procedure) yes Invalid Interpretation Code [facility] Work Phone: [phone] Tobacco smoking status NHIS Current every day smoker [facility] Work Phone: [phone] Tobacco use CPHS Current every day smoker Invali d Interpretation Code [facility] Work Phone: [phone] Vital Signs Date Time Vital Sign Value Performing Clinician Rebeka pope 11-01-2016 10:08-0400 BMI (Body Mass Index) 28.63 kg/m2 Ruben Armendariz NP [facility] Work Phone: 11-01-2016 10:08-0400 BP Diastolic 80 mm[Hg] Ruben Armendariz NP [facility] Work Phone: 11-01-2016 10:08-0400 BP Systolic 118 mm[Hg] Ruben Armendariz NP [facility] Work Phone: 11-01-2016 10:08-0400 Pulse (Heart Rate) 72 /min Ruben Armendariz NP [facility] Work Phone: 11-01-2016 10:08-0400 Weight 98.43 kg Ruben Armendariz NP [facility] Work Phone: 10-22-2016 10:27-0400 Heart rate 83 /min Dayan Khan [facility] Work Phone: 10-22-2016 10:12-0400 BMI (Body Mass Index) 28.23 kg/m2 [facility] Work Phone: 10-22-2016 10:12-0400 BP Diastolic 90 mm[Hg] [facility] Work Phone: 10-22-2016 10:12-0400 BP Systolic 120 mm[Hg] [facility] Work Phone: 10-22-2016 10:12-0400 Height 185.42 cm [facility] Work Phone: 10-22-2016 10:12-0400 Pulse (Heart Rate) 83 /min [facility] Work Phone: 10-22-2016 10:12-0400 Respiratory Rate 16 /min [facility] Work Phone: 10-22-2016 10:12-0400 Weight 97.07 kg [facility] Work Phone: 06-28-2015 08:56-0500 BMI (Body Mass Index) 27.65 kg/m2 [facility] Work Phone: 06-28-2015 08:56-0500 Body [...] 06-28-2015 08:56-0500 Pulse Oximetry 97 % Dayan Khan [facility] Work Phone: 06-28-2015 08:56-0500 Respiratory Rate 16 /min [facility] Work Phone: 06-28-2015 08:56-0500 Weight 95.07 kg [facility] Work Phone: 05-10-2015 13:49-0500 Height 185.42 cm Dayan Khan [facility] Work Phone: Encounters Encounter Date Encounter Type Care Provider Facility Start: 09-17-2024 End: 09-17-2024 ambulatory Brennan Ty Facility:[facility] Start: 07-21-2024 ambulatory Ruben Armendariz NP Facility :[facility] Start: 07-21-2024 End: 07-21-2024 ambulatory Ruben Armendariz NP Facility:[facility] Start: 07-07-2024 End: 07-07-2024 ambulatory Ruben Armendariz NP Facility:[facility] Start: 07-02-2024 End: 07-02-2024 ambulatory Brennan Ty Facility:[facility] Start: 06-08-2024 End: 06-08-2024 ambulatory Brennan Ty Facility:[facility] Start: 05-15-2024 ambulatory Ming Heriberto Facility:[facility] Start: 05-06-2024 ambulatory Loren DOE Facility:[facility] Start: 04-05-2024 End: 05-04-2024 ambulatory Appleton Heriberto Facility:[facility] Start: 03-12-2024 End: 04-03-2024 ambulatory Ming Heriberto Facility:[facility] Start: 03-03-2024 End: 03-04-2024 ambulatory Brennan Ty Facility:[facility] Start: 02-11-2024 End: 02-11-2024 ambulatory Brennan Ty Facility:[facility] Start: 01-28-2024 End: 02-02-2024 ambulatory Brennan Ty Facility:[facility] Start: 12-31-2023 End: 01-03-2024 ambulatory Bernnan Ty Facility:[facility] Start: 12-30-2023 ambulatory Brennan Ty [facility] Start: 12-29-2023 ambulatory Brennan Ty [facility] Start: 12-29-2023 End: 12-29-2023 ambulatory Brennan Ty Facility:[facility] Start: 12-24-2023 End: 12-24-2023 ambulatory Brennan Ty Facility:[facility] Start: 12-17-2023 End: 12-17-2023 ambulatory Janett Read RN LACTATION CONSULTANT Facility:[facility] Start: 12-17-2023 End: 12-17-2023 ambulatory Brennan Ty Facility:[facility] Start: 12-11-2023 ambulatory Brennan Ty [facility] Start: 12-08-2023 ambulatory Ming Heriberto [facility] Start: 12-06-2023 ambulatory Kolton Belal [facility] Start: 12-06-2023 End: 12-08-2023 Evaluation and management of inpatient Barberk Belal Facility:[facility] Start: 12-06-2023 ambulatory Roscoeyanni Belky [facility] Start: 08-03-2018 End: 08-04-2018 Patient encounter procedure ELSA ROGERS [facility] Start: 08-18-2017 End: 08-20-2017 Patient encounter procedure JANELL SAMSON [facility] Start: 08-04-2017 End: 08-04-2017 Ambulatory ALBERTO Monet [facility] Start: 07-06-2017 End: 07-06-2017 Emergency department patient visit TANGELA GUNN Facility:[facility] Procedures Date Procedure Procedure Detail Performing Clinician Start: 11-01-2016 End: 11-06-2016 STEFANIE Armendariz RN LACTATION CONSULTANT Work Phone: Start: 11-01-2016 End: 11-06-2016 Follow Up Appt 6 months Ruben Armendariz NP Work Phone: Start: 10-22-2016 End: 10-22-2016 STEFANIE Tomlinson PA-C Work Phone: Start: 10-22-2016 End: 10-22-2016 Follow Up Appt 3 months Loren barney PA-C Work Phone: Start: 10-04-2016 End: 11-06-2016 Referral to program management intern Pascual Suarez MD Work Phone: Start: 10-03-2016 [...] Phone: Start: 11-06-2016 End: 11-06-2016 Appointment Appointment [facility] Work Phone: Start: 11-01-2016 End: 11-06-2016 STEFANIE BLANCHARDN [facility] Work Phone: Start: 11-01-2016 End: 11-06-2016 Follow Up Appt 6 months Follow Up Appt 6 months [facility] Work Phone: Start: 10-22-2016 End: 10-22-2016 Appointment Appointment [facility] Work Phone: Start: 10-22-2016 End: 10-22-2016 STEFANIE WATTS [facility] Work Phone: Start: 10-22-2016 End: 10-22-2016 Follow Up Appt 3 months Follow Up Appt 3 months [facility] Work Phone: Start: 10-04-2016 End: 10-04-2016 Cardiac Rehab Cardiac Re[facility] [address] [place], [address] [facility] Work Phone: Start: 10-03-2016 End: 10-03-2016 Appointment Appointment [facility] Work Phone: Start: 10-03-2016 End: 10-04-2016 *BMP *BMP [facility] Work Phone: Start: 10-03-2016 End: 10-04-2016 Stress Echocardiogram (treadmill) Stress Echocardiogram (treadmill) [facility] Work Phone: Payers Date Payer Category Payer Self-pay 2023 Medicare [id number] 2017 Medicare [id number] Unknown [id number] 2.16.8 [id number] Unknown [id number] 2.16.8 40.1.355052.3.579.2.462 Unknown [id number] 2.16.8 40.1.412566.3.579.2.462 Unknown [id number] 2.16.8 40.1.412813.3.579.2.462 Unknown [id number] 2.16.8 40.1.211632.3.579.2.462 Unknown [id number] 2.16.8 40.1.873455.3.579.2.462 Unknown [id number] 2.16.8 40.1.532992.3.579.2.462 Unknown [id number] 2.16.8 40.1.741904.3.579.2.462 Unknown [id number] 2.16.8 40.1.072371.3.579.2.462 Unknown [id number] 2.16.8 40.1.007933.3.579.2.462 Unknown [id number] 2.16.8 40.1.459817.3.579.2.462 Unknown [id number] 2.16.8 40.1.566677.3.579.2.462 Unknown [id number] 2.16.8 40.1.023142.3.579.2.462 Unknown [id number] 2.16.8 40.1.149759.3.579.2.462 Unknown [id number] 2.16.8 40.1.923547.3.579.2.462 Unknown [id number] 2.16.8 40.1.746179.3.579.2.462 Unknown [id number] 2.16.8 40.1.801903.3.579.2.462 Unknown [id number] 2.16.8 40.1.863733.3.579.2.462 Unknown [id number] 2.16.8 40.1.343842.3.579.2.462 Unknown [id number] 2.16.8 40.1.373732.3.579.2.462 Unknown [id number] 2.16.8 40.1.957593.3.579.2.462 Unknown [id number] 2.16.8 40.1.185939.3.579.2.462 Unknown [id number] 2.16.8 40.1.202931.3.579.2.462 Unknown [id number] 2.16.8 40.1.668477.3.579.2.462 Unknown [id number] 2.16.8 40.1.645075.3.579.2.462 Unknown [id number] 2.16.8 40.1.688801.3.579.2.462 Unknown [id number] 2.16.8 40.1.263150.3.579.2.462 Unknown [id number] 2.16.8 40.1.361595.3.579.2.462 Discharge summary note 12-08-2023 Note Date & Type Note Facility 12-08-2023 Note [facility] Medical Records Department [address] [place] [id number] Discharge Summary 12/08/23 1233 MR#: [id number] Acct: [id number] Name: MARY NELSON Rep #: [id number] : [id number] 53 From: Anant Angeles DO PCP: Dr. Brennan Ty MD Status:DIS IN Location: ICU [id number] Providers Date of Admission: 12/06/23 Date of Discharge: 12/08/23 Primary Care Physician: Dr. Brennan Ty MD Consultations 12/06/23 12:35 Consult: Hospitalist Routine Consulting Provider: Anant Angeles Reason for Consult: Medical management EMERGENT Consult: No MD Notified: Yes Date Notified: 12/06/23 Time Notified: 12:35 Method of Notification: Text Reason For Visit: STEMI Diagnosis Discharge Diagnosis (1) STEMI (ST elevation myocardial infarction): Status: Acute Code(s): I21.3 - ST elevation (STEMI) myocardial infarction of unspecified site Medications at Discharge Home Medications escitalopram oxalate 5 mg tablet 5 mg PO DAILY depression 04/21/15 fish oil-dha-epa 1,200 mg-144 mg-216 mg capsule 1 each PO DAILY supplement 04/21/15 allopurinol 100 mg tablet 100 mg PO DAILY edema; uric acid 07/25/15 aspirin 81 mg tablet,delayed release 81 mg PO DAILY@0800 health maintenance 05/01/18 nitroglycerin 0.4 mg sublingual tablet 0.4 mg sublingual Q5M PRN chest pain #25 tabs 06/09/20 cyclobenzaprine 10 mg tablet 10 mg PO DAILY PRN Pain 1-10 Or Fever 08/12/20 meloxicam 7.5 mg tablet 7.5 mg PO PRN PAIN 08/12/20 esomeprazole magnesium 20 mg capsule,delayed release (Nexium) 20 mg PO DAILY #30 caps 02/25/22 gabapentin 600 mg tablet 600 mg PO BID 06/04/22 glimepiride 4 mg tablet 4 mg PO BID 06/04/22 tizanidine 4 mg tablet 4 mg PO QHS PRN muscle spasticity 06/04/22 vitamin B complex-vitamin C-folic acid 0.8 mg tablet (Otilia-Prema) 1 tab PO DAILY 06/04/22 cholecalciferol (vitamin D3) 25 mcg (1,000 unit) tablet (Vitamin D3) 25 mcg PO DAILY 12/31/22 glucosamine sulfate 500 mg tablet (Glucosamine) 500 mg PO DAILY 07/09/23 isosorbide mononitrate 60 mg tablet,extended release 24 hr 60 mg PO DAILY #90 tabs 08/21/23 atorvastatin 80 mg tablet 80 mg PO QHS cholesterol #90 tabs 09/04/23 carvedilol 25 mg tablet (Coreg) 25 mg PO BID #180 tabs 09/04/23 lisinopril 5 mg tablet 5 mg PO DAILY 30 days #30 tabs 12/08/23 ticagrelor 90 mg tablet (Brilinta) 90 mg PO BID 30 days #60 tabs 12/08/23 Hospital Course Operations None Procedures Cardiac catheterization, EKG, Transthoracic echo and - (Chest x-ray, CTA chest) Summary of Care Provided Minutes Spent on Discharge: 35 Hospital Course: Patient is a 53-year-old male who presented [facility] ED on 12/06/2023 with chest pain. Hospital course as noted below. Patient discharged home with no therapy needs in stable condition on 12/07. 1. STEMI; prior history of STEMI and NSTEMI, history of CAD with stenting, hypertension, hyperlipidemia ??? Cardiology followed. Presented with chest pain, found to have ST elevations in leads I and aVL. Left heart cath showed subtotal mid RCA occlusion s/p stenting x 1 with improvement; otherwise found to have diffuse nonobstructive disease and normal LVEDP with estimated normal EF. Prior stent in proximal RCA patent; noted to have history of LCX stenting in 2017, not commented on in cath report. Echo 12/07 showed EF 55%, stage I diastolic dysfunction, no other abnormalities. Lipid panel similar to previous. Had no ectopy on telemetry and no further issues during hospitalization. Discharged home on aspirin, Brilinta, atorvastatin, Coreg, nitrate and lisinopril. Outpatient follow-up with cardiology in about 1 week. 2. CKD stage III ??? Creatinine 1.85 on admit, improved to 1.5 during this position. Baseline appears to be around 1.5-1.8. No inpatient nephrology needs, follow-up with outpatient herbarium curator as needed. 3. Type 2 diabetes mellitus ??? Home regimen of glimepiride 4 mg twice daily. A1c 6.9% on admit, improved from 7.6% in August. Treated with sliding scale insulin while inpatient, okay to resume glimepiride on discharge. 4. Tobacco abuse ??? Current cigarette smoker with significant smoking history. Has been encouraged to quit in the past. Reiterated importance of smoking cessation to patient on admission. Nicotine replacement therapy available while inpatient as needed. Chronic medical conditions: ??? Chronic back pain with neuropathy: Follows with Dr. Munoz with pain management. Not able to find any notes but per patient, receives steroid injections into the lumbar spine somewhat consistently and has been doing fine with this. Pain controlled, no inpatient needs. Continue home gabapentin. ??? Chronic right knee pain: Follows with orthopedics. Continue outpatient follow-up, no inpatient needs. ??? GERD: Continue home PPI. ??? Depression: Stable. Continue home escitalopram. ??? History of eleva (more content not included)... [facility] Summary Purpose Family History No Family History Records FoundNo Family History Records FoundNo Family History Records FoundNo Family History Records Found Advance Directives No Advanced Directives Records FoundNo Advanced Directives Records FoundNo Advanced Directives Records FoundNo Advanced Directives Records Found Additional Source Comments (unrecognized sect ion and content) No Status Records FoundNo Status Records FoundNo Status Records FoundNo Status Records Found INFORMATION SOURCE (unrecogn ized section and content) DATE CREATED AUTHOR 10/23/2017 [facility] DATE CREATED AUTHOR AUTHOR'S ORGANIZ ATION 10/24/2017 [facility] ([place]) DATE CREATED AUTHOR AUTHOR'S ORGANIZ ATION 08/07/2018 [facility] DATE CREATED AUTHOR AUTHOR'S ORGANIZ ATION 09/29/2024 [facility] FOR RECORDS PERTAINING TO PATIENTS WHO ARE [...] BE BASED ON THE PRIMARY CLINICAL RECORDS. [employer] provides no warranty or guarantee of the accuracy or completeness of information in this document.
== END | disposition home or self-care (01) ==
LOC: RAD 16:13
PROVIDERS: PCP Family Medicine; Referring Provider Anesthesiology Pain Medicine; Visit Provider Anesthesiology Pain Medicine
DX: M54.12 Radiculopathy, cervical region (principal)
CPT/HCPCS: 72040

== ENCOUNTER 2024-10-30 14:04 | Emergency (ER) | payer MEDICARE, SELFPAY ==
[2024-10-30 14:05] VITALS: BP 147/96; PULSE 86; RESP 20; TEMP 36.6; O2SAT 99; BMI 29.2
--- NOTE | 2024-10-30 15:41 | CT_ITS ---
PROCEDURE: SPINE CERVICAL WITHOUT CONTRAS 10/30/2024 REASON FOR EXAM: LOWER CERVICAL PAIN TECHNIQUE: Cervical spine CT without contrast. Coronal and Sagittal reconstruction series were provided. One or more dose reduction techniques were used (e.g., Automated exposure control, adjustment of the mA and/or kV according to patient size, use of iterative reconstruction technique. RADIATION DOSE SUMMARY: DLP: 700 mGycm COMPARISON: C-spine radiographs 10/26/2024. FINDINGS: Alignment: No traumatic listhesis. Vertebrae: The vertebral body heights are maintained. No acute cervical fracture. Mild multilevel degenerative disc disease without significant central stenosis. Mild left neural foraminal stenosis at C5-6 due to facet hypertrophy. Soft Tissues: Unremarkable. CT/Spine Cervical without Contras IMPRESSION: NO ACUTE CERVICAL FRACTURE. DEGENERATIVE CHANGES. Reading Location: [id number]
--- NOTE | 2024-10-30 15:44 | EX.ED.UPPERE ---
HPI History of Present Illness Chief Complaint: Upper Extremity Injury Narrative Narrative: Patient is a 54-year-old male with past medical history of CAD with stents, diabetes, hypercholesteremia, TIA, neurogenic bladder, chronic kidney disease stage III, hyperlipidemia who presents to the emergency department the chief complaint of neck pain. Patient states that he has pain around his C7 vertebrae. He states that this been going on for significant time he states that he follows with pain management notes that he has tried tramadol Tylenol ibuprofen several other medications without any symptomatic relief. He originally thought that this was secondary to him sleeping in an abnormal position or other etiology but states that since this pain has persisted he came here for further evaluation management. He denies any trauma to his head or neck. [facility] Medical History Heart attack Wears glasses History of steroid therapy Thyroid disease Diabetes History of renal disease Arthritis High cholesterol Easy bruising Excessive bleeding Back pain TIA (transient ischemic attack) Syncope Gastric reflux Smoker Shortness of breath on exertion Chronic cough History of pain when walking History of stress test History of echocardiogram Cardiology follow-up encounter History of heart attack Erectile dysfunction Syncope Nicotine dependence Palpitations History of ST elevation myocardial infarction (STEMI) (09/29/16) Sleep-disordered breathing Diabetes mellitus type II, controlled Essential hypertension Neurogenic bladder Chronic kidney disease, stage 3 (03/15/13) Atherosclerosis of coronary artery of [place] heart without angina pectoris NSVT (nonsustained ventricular tachycardia) Chronic radicular lumbar pain Spinal stenosis of lumbar region Osteoarthritis Hyperlipidemia Home Medications ?Medication ?Instructions ?Recorded ?Last Taken ?Type escitalopram oxalate 5 mg tablet 5 mg PO DAILY depression 04/21/15 07/25/19 History fish oil-dha-epa 1,200 mg-144 1 each PO DAILY supplement 04/21/15 12/31/22 History mg-216 mg capsule allopurinol 100 mg tablet 100 mg PO DAILY edema; uric acid 07/25/15 07/25/19 History aspirin 81 mg tablet,delayed 81 mg PO DAILY@0800 health 05/01/18 12/31/22 History release maintenance nitroglycerin 0.4 mg sublingual 0.4 mg sublingual Q5M PRN chest 06/09/20 Unknown Rx tablet pain #25 tabs cyclobenzaprine 10 mg tablet 10 mg PO DAILY PRN Pain 1-10 Or 08/12/20 Unknown History Fever meloxicam 7.5 mg tablet 7.5 mg PO PRN PAIN 08/12/20 Unknown History esomeprazole magnesium 20 mg 20 mg PO DAILY #30 caps 02/25/22 Unknown Rx capsule,delayed release (Nexium) glimepiride 4 mg tablet 4 mg PO BID 06/04/22 Unknown History tizanidine 4 mg tablet 4 mg PO QHS PRN muscle spasticity 06/04/22 Unknown History vitamin B complex-vitamin C-folic 1 tab PO DAILY 06/04/22 Unknown History acid 0.8 mg tablet (Otilia-Prema) cholecalciferol (vitamin D3) 25 25 mcg PO DAILY 12/31/22 Unknown History mcg (1,000 unit) tablet (Vitamin D3) glucosamine sulfate 500 mg tablet 500 mg PO DAILY 07/09/23 Unknown History (Glucosamine) atorvastatin 80 mg tablet 80 mg PO QHS cholesterol #90 tabs 09/04/23 Unknown Rx isosorbide mononitrate 60 mg 60 mg PO DAILY #90 tabs 07/05/24 Unknown Rx tablet,extended release 24 hr dapagliflozin propanediol 5 mg 5 mg PO QDAY 07/07/24 Unknown History tablet (Farxiga) duloxetine 60 mg capsule,delayed 60 mg PO QDAY 07/07/24 Unknown History release carvedilol 25 mg tablet (Coreg) 25 mg PO BID #180 tabs 07/13/24 Unknown Rx clopidogrel 75 mg tablet 75 mg PO QDAY #90 tabs 08/17/24 Unknown Rx lisinopril 5 mg tablet 5 mg PO DAILY 30 days #90 tabs 08/17/24 Unknown Rx gabapentin 300 mg capsule 300 mg PO BID 10/30/24 Unknown History prednisone 50 mg tablet 50 mg PO DAILY 5 days #5 tabs 10/30/24 Unknown Rx Allergy/AdvReac Type Severity Reaction Status Date / Time sulfamethoxazole (From Allergy Mild Rash Verified 07/07/24 12:01 Bactrim) trimethoprim (From Bactrim) Allergy Mild Rash Verified 07/07/24 12:01 bupropion (From Wellbutrin) AdvReac Elevated Verified 07/07/24 12:01 BP Family History Grandfather CAD (coronary artery disease) Surgical History History of lateral meniscus repair of right knee History of cardiac catheterization History of coronary artery stent placement (12/06/23) History of left heart catheterization ileoconduit placement History of renal stent urethral stricture surgery urinary tract diverson percutaneous nephrostomy Social History Smoking Status: Current every day smoker tobacco type: cigarettes alcohol intake: never substance use type: does not use caffeine: Yes Type: coffee Number of servings: 2 and tea ROS ROS ED ROS Narrative Constitutional: Denies headache, fevers, chills, lightness, dizziness Eyes: Denies change in vision double vision blurry vision Cardiovascular: Denies chest pain Respiratory: Denies shortness of breath, cough Abdomen: Denies abdominal pain nausea vomit diarrhea : Denies urinary symptoms Neurological: Complains of some generalized weakness overall denies any other numbness or tingling Musculoskeletal: Complains of neck pain as noted above denies lower back pain Skin: Denies any rashes or lesions EXAM Physical Exam Narrative Exam Narrative: General: Patient lying in bed rest comfortably did not appear to be acute distress Head: Atraumatic, normocephalic Eyes: PERRL bilaterally, EOMI bilateral, no conjunctival injection noted Neck: Soft, supple, trachea midline, no tenderness palpation of midline of the cervical spine, no step-offs or deformities noted, patient has full range of motion of his neck Cardiovascular: Regular rate and rhythm Respiratory: Clear to auscultation bilaterally Abdomen: Soft, nondistended, nontender to palpation Musculoskeletal: No tenderness palpation midline of thoracic lumbar spine, Extremities: +4/5 strength noted in the bilateral upper and lower extremities, radial pulses +2/4 in bilateral extremities, no pedal edema on exam Neurological: Patient following commands knew that he was at [facility] year is 2024 sensation grossly intact in the median, ulnar, radial and axillary nerve distribution bilaterally, patient was able to hold his elbows in flexion despite resistance he had mild weakness in his right hand when compared to the left while trying to resist adduction of his fingers on the right side Skin: Warm, dry, intact no rashes or lesions noted Const Vital Signs: 10/30/24 14:05 Temperature 97.8 F Temperature Source Temporal Pulse Rate 86 Respiratory Rate 20 H Blood Pressure 147/96 H Blood Pressure Mean 113 Pulse Ox 99 Oxygen Delivery Method Room Air MDM MDM MDM Narrative Medical decision making narrative: Patient is a 54-year-old male who presents to the emergency department the chief complaint of lower neck pain that radiates to his shoulders bilaterally and down his the back of his left arm with complaint of some overall generalized weakness. On the differential diagnose includes but not limited to herniated disc, compression fracture, mass, ACS. Once workup is obtained reviewed he will be reevaluated. Patient's CBC was reviewed showed no evidence leukocytosis white blood count 8.8, hemoglobin 15.4, plate count 193. Patient sodium was normal at 140, potassium normal at 4, creatinine was elevated 2.03 he has underlying chronic kidney disease. Patient glucose normal at 116. Patient's EKG reviewed showed sinus rhythm with a rate of [address] cervical spine was reviewed as well which showed no acute cervical fracture or degenerative changes. On reevaluation the patient he was requesting medication for pain however he states that he drove here and did not want to get a ride home therefore I told him I was limited on what I could provide for pain relief and 1 to avoid NSAIDs given his underlying chronic kidney disease. Patient states that he will take Tylenol at home he already has prescription for Zanaflex at home. He will be given a prescription for short course of steroids. He is in pain management therefore cannot prescribe him narcotics. He is advised to return with worsening symptoms or concerns. He is advised follow-up pain management in the outpatient setting and obtain MRI of his neck. He is agreeable this plan all course concerns answered was discharged home in stable condition. Discharge Plan Triage Chief Complaint: Upper Extremity Injury ED Provider: Jigar Maxwell Dx/Rx/DC Orders Clinical Impression: Neck pain, Essential hypertension, Chronic kidney disease (CKD), Diabetes Prescriptions: New prednisone 50 mg tablet 50 mg PO DAILY 5 Days Qty: 5 0RF No Action tizanidine 4 mg tablet 4 mg PO QHS PRN (Reason: muscle spasticity) glimepiride 4 mg tablet 4 mg PO BID Otilia-Prema 0.8 mg tablet 1 tab PO DAILY Patient Comments: TAKE 1 TABLET BY MOUTH ONCE DAILY duloxetine 60 mg capsule,delayed release(DR/EC) 60 mg PO QDAY dapagliflozin propanediol [Farxiga] 5 mg tablet 5 mg PO QDAY glucosamine sulfate [Glucosamine] 500 mg tablet 500 mg PO DAILY Rx Instructions: administer with a meal fish oil-dha-epa 1 EACH capsule 1 each PO DAILY Patient Comments: SUPPLEMENT escitalopram oxalate 5 MG tablet 5 mg PO DAILY Patient Comments: DEPRESSION allopurinol 100 MG tablet 100 mg PO DAILY Patient Comments: ANTI-GOUT aspirin 81 MG tablet 81 mg PO DAILY@0800 cyclobenzaprine 10 MG tablet 10 mg PO DAILY PRN (Reason: Pain 1-10 Or Fever) meloxicam 7.5 MG tablet 7.5 mg PO PRN cholecalciferol (vitamin D3) [Vitamin D3] 25 mcg (1,000 unit) tablet 25 mcg PO DAILY gabapentin 300 mg capsule 300 mg PO BID nitroglycerin 0.4 mg tablet, sublingual 0.4 mg SL Q5M PRN (Reason: chest pain) Qty: 25 3RF Rx Instructions: do not exceed 3 doses per episode esomeprazole magnesium [Nexium] 20 mg capsule,delayed release(DR/EC) 20 mg PO DAILY Qty: 30 11RF atorvastatin 80 mg tablet 80 mg PO QHS Qty: 90 3RF isosorbide mononitrate 60 mg tablet extended release 24 hr 60 mg PO DAILY Qty: 90 3RF carvedilol [Coreg] 25 mg tablet 25 mg PO BID Qty: 180 3RF Rx Instructions: must administer with a meal/food lisinopril 5 mg tablet 5 mg PO DAILY 30 Days Qty: 90 3RF clopidogrel 75 mg tablet 75 mg PO QDAY Qty: 90 3RF Primary Care Provider: Brennan Ty Referrals: Brennan Ty MD [Primary Care Provider] - Activity Restrictions/Additional Instructions: Take steroids as prescribed will watch your sugars for the next few days as this can cause an increase in your blood glucose. Take other prescriptions that you are prescribed for your neck pain follow-up with pain management as your CT cervical spine did not show any acute findings you will likely need MRI and potential EMG testing. Return with worsening symptoms or concerns. Take Tylenol as well for pain control max dose of Tylenol in 24 hours 4000 mg. Avoid NSAIDs such as ibuprofen, Aleve Advil etc. secondary to your kidney function Print Language: Samoan Disposition Disposition: Home, Self Care
[2024-10-30 16:01] LABS: Absolute Lymphocyte Count 2.29 X10^3/uL (0.83-4.51); Absolute Neutrophil Count 5.4 X10^3/uL (2.0-7.7); Basophil# 0.05 X10^3/uL; Basophil% 0.6 % (0-1); Eosinophil# 0.28 X10^3/uL; Eosinophils% 3.2 % (0-5); Hematocrit 46.6 % (40-54); Hemoglobin 15.4 g/dL (13.0-16.5); Lymphocyte # 2.29 X10^3/ul (0.83-4.51); Lymphocyte % 26.1 % (19-41); Mean Platelet Vol. 9.1 fl (6.2-12.0); Monocyte# 0.77 X10^3/uL; Monocyte% 8.8 % (0-10); NRBC Flagged by Analyzer 0 % (0-5); Neutrophil # 5.35 X10^3/uL (2.7-7.7); Neutrophil % 60.7 % (47-70); Platelet Count 193 K/mm3 (150-450); RBC Distribution Width CV 13.6 % (11.6-14.6); RBC Distribution Width SD 46.5 fl (35.1-43.9); Red Blood Count 4.96 M/mm3 (4.6-6.2); White Blood Count 8.8 K/mm3 (4.4-11.0)
--- OUTSIDE RECORDS SUMMARY | 2024-10-30 16:13 | XMS RPT_ITS | CCD ---
Author Organization [facility] Care Team Providers Care Cement Finisher Name Role Phone Roof NIRU, Ruben Dutton Unavailable Khan, Dayan Unavailable Unavailable Khan, Dayan Unavailable Unavailable Khan, Dayan Unavailable Unavailable ALBERTO PAULA Unavailable Unavailable ALBERTO PAULA Unavailable Unavailable TANGELA GUNN Unavailable Unavailable BRENNAN TY Unavailable Unavailable JANELL SAMSON Referring Unavailable JANELL SAMSON Referring Unavailable JANELL SAMSON Attending Unavailable JANELL SAMSON Referring Unavailable ELSA ROGERS Attending Unavailable PASCUAL MANN Referring Unavailable Khan, Dayan Unavailable Unavailable Khan, Dayan Unavailable Unavailable Elaina Albert RN Unavailable Unavailable Brennan Ty Primary Care Unavailable Ming Louis Attending Unavailable Loren Conklin Attending Unavail able Brennan Ty Referring Unavailable TyBrennan alexander Primary Care Unavailable Ty, Brennan Primary Care Unavailable Janett Read NP Attending Unavailable Brennan Ty Primary Care Unavailable Parker Leger Attending Unavailable Janett Read NP Referring Unavailable Ruben Armendariz H Attending Unavailable TyBrennan alexander Referring Unavailable Ty, Brennan Primary Care Unavailable Ty, Brennan Primary Care Unavailable Janett Read NP Attending Unavailable Brennan Ty Referring Unavailable TyBrennan alexander Referring Unavailable Ty, Brennan Primary Care Unavailable Brennan Ty Attending Unavailable Ruben Armendariz H Attending Unavailable Ruben Armendariz H Referring Unavailable Ty, Brennan Primary Care Unavailable Belal, Farouk Referring Unavailable Belal, Farouk Admitting Unavailable Belal, Farouk Consulting Unavailable Anant Angeles Attending Unavailable Brennan Ty Primary Care Unavailable Anant Angeles Consulting Unavailable Courtney Willingham Attending Unavailable Courtney Willingham Referring Unavailable Ty, Brennan Primary Care Unavailable Heriberto, Ming Attending Unavailable Heriberto, Ming Referring Unavailable Ty, Brennan Primary Care Unavailable Heriberto, [place] Attending Unavailable Heriberto, Ming Referring Unavailable Ty, Brennan Primary Care Unavailable Basali, Ayman Attending Unavailable Basali, Ayman Referring Unavailable Ty, Brennan Primary Care Unavailable Heriberto, Ming Attending Unavailable Heriberto, Ming Referring Unavailable Ty, Brennan Primary Care Unavailable Heriberto, [place] Attending Unavailable Heriberto, [place] Referring Unavailable Ty, Brennan Primary Care Unavailable Belal, Farouk Referring Unavailable Belal, Farouk Admitting Unavailable Belal, Farouk Consulting Unavailable Mosteller, Anant Attending Unavailable Ty, Brennan Primary Care Unavailable Karthik Anant Consulting Unavailable Ty, Brennan Primary Care Unavailable Heriberto, Ming Referring Unavailable Heriberto, [place] Attending Unavailable Ty, Brennan Primary Care Unavailable Jacek SLAB 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, Janett Attending Unavailable Jacek SLAB 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, Janett Referring Unavailable Belal, Farouk Attending Unavailable Belal, Farouk Referring Unavailable Belal, Farouk Admitting Unavailable Belal, Farouk Consulting Unavailable Karthik Anant Attending Unavailable Ty, Brennan Primary Care Unavailable eller, Anant Consulting Unavailable Belal, Farouk Attending Unavailable Roof, Ruben H Consulting Unavailable Roof, Ruben H Referring Unavailable Heriberto, Ming Attending Unavailable Ty, Brennan Primary Care Unavailable Ty, Brennan Referring Unavailable Ty, Brennan Primary Care Unavailable Ty, Brennan Attending Unavailable Ty, Brennan Primary Care Unavailable Heriberto, Ming Referring Unavailable Heriberto, [place] Attending Unavailable Ty, Brennan Primary Care Unavailable Heriberto, [place] Referring Unavailable Heriberto, [place] Attending Unavailable Ty, Brennan Primary Care Unavailable Jacek SLAB 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, Janett Attending Unavailable Jacek SLAB 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, Janett Referring Unavailable Ty, Brennan Attending Unavailable Ty, Brennan Referring Unavailable Ty, Brennan Primary Care Unavailable Heriberto, Ming Attending Unavailable Ty, Brennan Primary Care Unavailable Allergies Allergy Classification Reported Allergen(s) Allergy Type Date of Onset Reaction(s) Facility (8 sources) sulfamethoxazole / trimethoprim drug allergy 6 [facility] Work Phone: (2 sources) sulfamethoxazole / trimethoprim; Translations: [SULFAMETHOXAZOLE-TR IMETHOPRIM] Drug Allergy 6 [facility] Repository (1 source) buPROPion Drug Allergy 5 [facility] Repository (1 source) Sulfamethoxazole Drug Allergy 5 [facility] Repository (1 source) Trimethoprim Drug Allergy 5 [facility] Repository Medications Completed/Discontinued Medications Medication Drug Class(es) Dates Sig (Normalized) Sig (Original) HYDROCODONE-ACETAM INOPHEN (16 sources) Opioid Agonist Start: 10-03-2016 take 1 tablet by mouth four times daily as needed NORCO 5-325 MG TABS One tablet by mouth four times daily as needed HYDROCODONE-ACETAMI NOPHEN [id number] Tamiko Cabrera RN Start: 10-03-2016 take 1 tablet by sunny th four times daily as needed NORCO 5-325 MG TABS One tablet by mouth four times daily as needed HYDROCODONE-ACETAMINOPHEN [id number] Tamiko Cabrera RN NORCO 5-325 MG T ABS as needed HYDROCODONE-ACETAMINOPHEN [id number] Bobby Sarkar NORCO 5-325 MG T ABS as needed HYDROCODONE-ACETAMINOPHEN 52097588669 Bobby Sarkar allopurinol 100 mg oral tablet (20 sources) Xanthine Oxidase Inhibitor Start: 10-03-2016 End: 10-03-2016 take 1 tablet by mouth once daily ALLOPURINOL 100 MG TABS One tablet by mouth daily ALLOPURINOL [id number] Tamiko Cabrera RN amLODIPine 5 mg oral tablet (16 sources) Dihydropyridine Calcium Channel Obdulia End: 10-03-2016 take 1 tablet by mouth once daily NORVASC 5 MG TABS One tablet by mouth daily AMLODIPINE BESYLATE 60802409255 Tamiko Cabrera RN aspirin 81 mg delayed release oral tablet (8 sources) Nonsteroidal Anti-inflammatory Drug Start: 10-03-2016 take 1 tablet by mouth once daily ASPIRIN EC 81 MG TBEC One tablet by mouth daily ASPIRIN 52454752744 Tamiko Cabrera RN atorvastatin 80 mg oral tablet (16 sources) HMG-CoA Reductase Inhibitor Start: 10-03-2016 take 1 tablet by mouth once daily ATORVASTATIN CALCIUM 80 MG TABS One tablet by mouth every night ATORVASTATIN CALCIUM 92808950081 Tamiko Cabrera RN take 1 tablet by mouth once luan y LIPITOR 10 MG TABS One tablet by mouth daily ATORVASTATIN CALCIUM [id number] Bobby L Mello B-COMPLEX W/ C & FOLIC ACID CAPS (5 sources) Start: 10-03-2016 take 1 tablet by mouth once daily RENAL CAPS One tablet by mouth daily B-COMPLEX W/ C & FOLIC ACID CAPS 06964369831 Tamiko Cabrera RN B-COMPLEX W/ C & FOLIC ACID CAPS (3 sources) Start: 10-03-2016 take 1 tablet by mouth once daily RENAL CAPS One tablet by mouth daily B-COMPLEX W/ C & FOLIC ACID CAPS 61234182218 Tamiko Cabrera RN carvedilol 25 mg oral tablet (16 sources) alpha-Adrenergi c Obdulia, beta-Adrenergic Obdulia End: 10-03-2016 take 1 tablet by mouth twice daily COREG 25 MG TABS One tablet by mouth twice daily CARVEDILOL 86135471874 Bobby Vega Mello cholecalciferol 05553 unt oral capsule (8 sources) Vitamin D VITAMIN D3 35446 UNIT CAPS one capsule weekly CHOLECALCIFEROL 24112961681 Bobby Vega Mello docosahexaenoic acid 1000 mg / omega-3 acid ethyl esters (care home) 300 mg delayed release oral capsule (3 sources) take 1 tablet by mouth once daily FISH OIL 1000 MG CPDR One tablet by mouth daily OMEGA-3 FATTY ACIDS 23008937416 Bobby Vega Mello escitalopram 5 mg oral tablet (8 sources) Serotonin Reuptake Inhibitor take 1 tablet by mouth once daily LEXAPRO 5 MG TABS One tablet by mouth daily ESCITALOPRAM OXALATE 40489813139 Bobby Vega Mello fish oil (13 sources) Start: 10-03-2016 take 1 tablet by mouth once daily FISH OIL CAPS 1200mg One tablet by mouth daily OMEGA-3 FATTY ACIDS CAPS 75917558941 Tamiko Cabrera RN take 1 tablet by mouth once luan y FISH OIL 1000 MG CPDR One tablet by mouth daily OMEGA-3 FATTY ACIDS 56436469036 Bobby Gary Mello gabapentin 300 mg oral capsule (18 sources) Anti-epileptic Agent Start: 10-03-2016 take 1 tablet by mouth three times daily GABAPENTIN 300 MG CAPS One tablet by mouth three times daily GABAPENTIN 33885354859 Tamiko Cabrera RN Start: 10-03-2016 GABAPENTIN 600 MG TABS GABAPENTIN 22854388301 Ruben Dutton Kala SLAB 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 take 1 tablet by sunny th three times daily GABAPENTIN 100 MG CAPS One tablet by mouth three times daily GABAPENTIN 59825507236 Bobby Sarkar 24 hr isosorbide mononitrate 30 mg extended release oral tablet (3 sources) Nitrate Vasodilator Start: 10-28-2016 take 1 tablet by mouth once daily ISOSORBIDE MONONITRATE ER 30 MG [id number]-EPJ One tablet by mouth daily (Imdur) ISOSORBIDE MONONITRATE 33890527642 Loren Tomlinson PA-C lisinopril 5 mg oral tablet (8 sources) Angiotensin Converting Enzyme Inhibitor Start: 10-03-2016 take 1 tablet by mouth once daily LISINOPRIL 5 MG TABS One tablet by mouth daily LISINOPRIL 45178841551 Tamiko Cabrera RN losartan potassium 100 mg oral tablet (16 sources) Angiotensin 2 Receptor Obdulia End: 10-03-2016 take 1 tablet by mouth once daily COZAAR 100 MG TABS One tablet by mouth daily LOSARTAN POTASSIUM 49055205140 Bobby Sarkar metoprolol tartrate 25 mg oral tablet (8 sources) beta-Adrenergic Obdulia Start: 10-03-2016 take 1 tablet by mouth twice daily METOPROLOL TARTRATE 25 MG TABS One tablet by mouth twice daily METOPROLOL TARTRATE 22288274211 Tamiko Cabrera RN NICOTINE (8 sources) Cholinergic Nicotinic Agonist Start: 10-03-2016 NICODERM CQ 21 MG/24HR PT24 Apply once a day for a week NICOTINE 88140146337 Tamiko Cabrera RN Start: 10-03-2016 NICODERM CQ 21 MG/24HR PT24 Apply once a day for a week NICOTINE 89902365278 Tamiko Cabrera RN ticagrelor 90 mg oral tablet (8 sources) Start: 10-03-2016 take 1 tablet by mouth twice daily BRILINTA 90 MG TABS One tablet by mouth twice daily TICAGRELOR 43850255341 Tamiko Cabrera RN TRIMETHOPRIM TABS (8 sources) Dihydrofolate Reductase Inhibitor Antibacterial Start: 10-03-2016 take 1 tablet by mouth once daily TRIMETHOPRIM TABS One tablet by mouth daily TRIMETHOPRIM TABS 37650131440 Tamiko Cabrera RN Problems Active Problems Problem [...] disease (10 sources) Atherosclerotic heart disease of ambler coronary artery without angina pectoris; Translations: [Atherosclerotic heart disease of ambler coronary artery without angina pectoris] Onset: 10-03-2016 [...] organism; Translations: [Sepsis, unspecified organism] Onset: 08-04-2017 Spondylosis; intervertebral disc disorders; other back problems (1 source) Radiculopathy, cervical region; Translations: [Radiculopathy, cervical region] Onset: 10-25-2024 Episodic Unclassified (5 sources) Placement of stent in coronary artery ; Translations: [Presence of coronary angioplasty implant and graft] Onset: 10-03-2016 10-03-2016 Unclassified (3 sources) Long-term drug therapy; Translations: [Other roasterman (current) drug therapy] Onset: 10-03-2016 10-03-2016 Past [...] 08-18-2017 Episodic Other aftercare (5 sources) Other long-term (current) drug therapy; Translations: [Other long-term (current) drug therapy] Onset: 10-03-2016 10-03-2016 Episodic [...] Test Name Value Interpretation Reference Range Facility Cerv Spine 2 or 3 Viewson Cerv Spine 2 or 3 Views [facility] Imaging Services [address] [place], [place] [id number] Cerv Spine 2 or 3 Views MR#: [id number] Acct: [id number] Name: MARY NELSON Rep #: [id number] : 1970 M 54 From: Rachel holland MD PCP: Dr. Brennan Ty MD Status: REG CLI Study: Cerv Spine 2 or 3 Views Date of Exam: 10/25/24 Exam# [id number] Ordering Dr: Venus Munoz MD PROCEDURE: CERV SPINE 2 OR 3 VIEWS 10/25/2024 REASON FOR EXAM: RADICULOPATHY, CERVICAL REGION TECHNIQUE: CERV SPINE 2 OR 3 VIEWS COMPARISON: None. FINDINGS: There are diffuse spondylotic changes. Findings are demonstrated to by diffuse disc space narrowing, osteophyte formation and degenerative endplate sclerosis. There is diffuse facet joint arthropathy with secondary bilateral neural foramina narrowing. No fracture or dislocation is seen. No aggressive lytic or blastic bony lesion is noted. RAD/Cerv Spine 2 or 3 Views IMPRESSION: Spondylosis, more prominent at C5-C6. Reading Location: [place] [address] CC: Dr. Venus Munoz MD; Dr. Brennan Ty MD Route Salesman: Signed Normal [facility] Comprehensive Metabolic Prof ilon 09-17-2024 Albumin [Mass/Vol] 4.3 g/dL Normal 3.5-5.0 [facility] Comment on above: Order Comment: MIACR E-UTO Performed By: #### L 500.4100, L501.9985, L501.9520 #### [facility] Laboratory [address] [place], [address] Albumin/Globulin [Mass ratio] 1.5 {ratio} Normal 0.9-2.4 [facility] Comment on above: Order Comment: MIACR E-UTO Performed By: #### L 500.4100, L501.9985, L501.9520 #### [facility] Laboratory [address] [place], [address] ALK PHOS 94 U/L Normal 40-129 [facility] Comment on above: Order Comment: MIACR E-UTO Performed By: #### L 500.4100, L501.9985, L501.9520 #### [facility] Laboratory [address] [place], [address] ALT [Catalytic activity/Vol] 30 U/L Normal <=46 [facility] Comment on above: Order Comment: MIACR E-UTO Performed By: #### L 500.4100, L501.9985, L501.9520 #### [facility] Laboratory [address] [place], [address] AST [Catalytic activity/Vol] 25 U/L Normal <=37 [facility] Comment on above: Order Comment: MIACR E-UTO Performed By: #### L 500.4100, L501.9985, L501.9520 #### [facility] Laboratory [address] [place], [address] Bilirubin [Mass/Vol] 0.23 mg/dL Normal 0.00-1.30 [facility] Comment on above: Order Comment: MIACR E-UTO Performed By: #### L 500.4100, L501.9985, L501.9520 #### [facility] Laboratory [address] [place], [address] BUN/CRE 8.5 RATIO Low 10-20 [facility] Comment on above: Order Comment: MIACR E-UTO Performed By: #### L 500.4100, L501.9985, L501.9520 #### [facility] Laboratory [address] [place], [address] Calcium [Mass/Vol] 9.5 mg/dL Normal 7.6-11.0 [facility] Comment on above: Order Comment: MIACR E-UTO Performed By: #### L 500.4100, L501.9985, L501.9520 #### [facility] Laboratory [address] [place], [address] Chloride [Moles/Vol] 104 mmol/L Normal 98-108 [facility] Comment on above: Order Comment: MIACR E-UTO Performed By: #### L 500.4100, L501.9985, L501.9520 #### [facility] Laboratory [address] [place], [address] CO2 [Moles/Vol] 22.6 mmol/L Normal 21.0-32.0 [facility] Comment on above: Order Comment: MIACR E-UTO Performed By: #### L 500.4100, L501.9985, L501.9520 #### [facility] Laboratory [address] [place], [address] Creatinine [Mass/Vol] 1.95 mg/dL High 0.70-1.20 [facility] Comment on above: Order Comment: MIACR E-UTO Performed By: #### L 500.4100, L501.9985, L501.9520 #### [facility] Laboratory [address] [place], [address] GAP 11 Normal 5-15 [facility] Comment on above: Order Comment: MIACR E-UTO Performed By: #### L 500.4100, L501.9985, L501.9520 #### [facility] Laboratory [address] [place], [address] GFR/1.73 sq M.predicted among non-blacks MDRD (S/P/Bld) [Vol rate/Area] 40 mL/min/{1.73_m2} Low >60 [facility] Comment on above: Order Comment: MIACR E-UTO Result Comment: mL/m in/1.73m2 CKD-EPI Creatinine Equation (2020) Performed By: #### L 500.4100, L501.9985, L501.9520 #### [facility] Laboratory [address] [place], [address] Globulin (S) [Mass/Vol] 2.8 g/dL Normal 2.2-4.2 [facility] Comment on above: Order Comment: MIACR E-UTO Performed By: #### L 500.4100, L501.9985, L501.9520 #### [facility] Laboratory [address] [place], [address] Glucose [Mass/Vol] 109 mg/dL High 70-99 [facility] Comment on above: Order Comment: MIACR E-UTO Performed By: #### L 500.4100, L501.9985, L501.9520 #### [facility] Laboratory [address] [place], [address] Potassium [Moles/Vol] 4.1 mmol/L Normal 3.3-5.1 [facility] Comment on above: Order Comment: MIACR E-UTO Performed By: #### L 500.4100, L501.9985, L501.9520 #### [facility] Laboratory [address] [place], [address] Sodium [Moles/Vol] 138 mmol/L Normal 133-145 [facility] Comment on above: Order Comment: MIACR E-UTO Performed By: #### L 500.4100, L501.9985, L501.9520 #### [facility] [address] [place], [address] T PROT 7.1 g/dL Normal 5.9-8.4 [facility] Comment on above: Order Comment: MIACR E-UTO Performed By: #### L 500.4100, L501.9985, L501.9520 #### [facility] Laboratory [address] [place], [address] Urea nitrogen [Mass/Vol] 17 mg/dL Normal 4-19 [facility] Comment on above: Order Comment: MIACR E-UTO Performed By: #### L 500.4100, L501.9985, L501.9520 #### [facility] Laboratory [address] [place], [address] Lipid Profileon 09-17-2024 CHOL:HDL 5.49 Normal [facility] Comment on above: Order Comment: MIACR E-UTO Performed By: #### L 500.4100, L501.9985, L501.9520 #### [facility] Laboratory [address] [place], [address] Cholesterol [Mass/Vol] 167 mg/dL Normal <=200 [facility] Comment on above: Order Comment: MIACR E-UTO Result Comment: Chol esterol level, Desirable <200 mg/dL Borderline high cholesterol 200-239 mg/dL High cholesterol >=240 mg/dL Recommendations of the NCEP Adult Treatment Panel for the following risk-cutoff thresholds for the [place] population. Performed By: #### L 500.4100, L501.9985, L501.9520 #### [facility] Laboratory [address] [place], [address] Cholesterol in HDL [Mass/Vol] 30 mg/dL Low [facility] Comment on above: Order Comment: MIACR E-UTO Result Comment: Teresa onal Cholesterol Education Program (NCEP) guidelines: <40 mg/dL: Low HDL-cholesterol (major risk factor for CHD) >= 60 mg/dL: High HDL-cholesterol (negative risk factor for CHD) HDL-cholesterol is affected by a number of factors, e.g. smoking, exercise, hormones, sex and age. Performed By: #### L 500.4100, L501.9985, L501.9520 #### [facility] Laboratory [address] [place], [address] Cholesterol in LDL [Mass/Vol] 60 mg/dL Normal [facility] Comment on above: Order Comment: MIACR E-UTO Result Comment: Bord jzdmtj=357-091 mg/dL Higher Uwji=108 mg/dL or greater Performed By: #### L 500.4100, L501.9985, L501.9520 #### [facility] Laboratory [address] [place], [address] Cholesterol in VLDL [Mass/Vol] 77 mg/dL High 5-40 [facility] Comment on above: Order Comment: MIACR E-UTO Performed By: #### L 500.4100, L501.9985, L501.9520 #### [facility] Laboratory [address] [place], [address] Triglyceride [Mass/Vol] 385 mg/dL High [facility] Comment on above: Order Comment: MIACR E-UTO Result Comment: The drugs N-Acetylcysteine and Metamizole may falsely depress this assay. Normal range: <150 mg/dL Borderline High: 150-199 mg/dL High: 200-499 mg/dL Very High: >500 mg/dL Performed By: #### L 500.4100, L501.9985, L501.9520 #### [facility] Laboratory [address] [place], [address] Stress Reporton 07-21-2024 Stress Report [facility] Cardiovascular Services [address] [place] [address] MR#: [id number] Acct: [id number] Name: MARY NELSON Rep #: [id number] : 1970 54 From: Ming Louis MD Primary Care: Dr. Brennan Ty MD Status: REG CLI Referring Dr: Ruben Armendariz NP SLAB 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-C Sex: M C Stress Test Report Pharmacologic [...] fraction. 07/21/241816 Date Ming Louis MD CC: LOTTIE Armendariz; Dr. Brennan Ty MD Date Dictated: 07/21/241814 Date Transcribed: 07/21/241814 Route Salesman: [place] Signed Normal [facility] Cardiology Visit Reporton Cardiology Visit Report [facility] [address] [place] [address] OFFICE VISIT Date of Service: 07/07/24 MR#: [id number] Acct: [id number] Name: MARY NELSON Rep #: [id number] : 1970 Provider: LOTTIE emery Age/Sex: 54/M Location: [facility] Status: Signed HPI HPI History of Present [...] NIBP Intake Visit Reasons: 1 Y FU Bus Monitor Required: No Is patient in pain?: No [...] mg tablet (more content not included)... Normal [facility] Urine Cultureon 07-04-2024 [facility] Streptococcus agalac tiae (B) [place] Count >100,000 Streptococcus agalactiae (B): REACTION Ampicillin Islt CORNELIUS <=0.25 cefTRIAXone Islt CORNELIUS <=0.12 S Clindamycin.induced Susc Islt NEG Linezolid Islt CORNELIUS <=2 S Vancomycin Islt CORNELIUS 0.5 S Normal [facility] Comment on above: Performed By: #### L 500.4100, L501.9985, L501.9520 #### [facility] Laboratory [address] [place], [address] Basic Metabolic Profile (BMP )on 07-02-2024 Anion gap [Moles/Vol] 11 mmol/L Normal 5-15 [facility] Comment on above: Performed By: #### L 500.4100, L501.9985, L501.9520 #### [facility] Laboratory [address] [place], [address] BUN/CRE 7.6 RATIO Low 10-20 [facility] Comment on above: Performed By: #### L 500.4100, L501.9985, L501.9520 #### [facility] Laboratory [address] [place], [address] Calcium [Mass/Vol] 9.5 mg/dL Normal 7.6-11.0 [facility] Comment on above: Performed By: #### L 500.4100, L501.9985, L501.9520 #### [facility] Laboratory [address] [place], [address] Chloride [Moles/Vol] 104 mmol/L Normal 96-108 [facility] Comment on above: Performed By: #### L 500.4100, L501.9985, L501.9520 #### [facility] Laboratory [address] [place], [address] CO2 [Moles/Vol] 23.1 mmol/L Normal 22.0-29.0 [facility] Comment on above: Performed By: #### L 500.4100, L501.9985, L501.9520 #### [facility] Laboratory [address] [place], [address] Creatinine [Mass/Vol] 1.89 mg/dL High 0.70-1.20 [facility] Comment on above: Performed By: #### L 500.4100, L501.9985, L501.9520 #### [facility] Laboratory [address] [place], [address] GFR/1.73 sq M.predicted among non-blacks MDRD (S/P/Bld) [Vol rate/Area] 41 mL/min/{1.73_m2} Low >60 [facility] Comment on above: Result Comment: mL/m in/1.73m2 CKD-EPI Creatinine Equation (2020) Performed By: #### L 500.4100, L501.9985, L501.9520 #### [facility] [address] [place], [address] Glucose [Mass/Vol] 144 mg/dL High 70-99 [facility] Comment on above: Performed By: #### L 500.4100, L501.9985, L501.9520 #### [facility] [address] [place], [address] Potassium [Moles/Vol] 4.7 mmol/L Normal 3.3-5.1 [facility] Comment on above: Performed By: #### L 500.4100, L501.9985, L501.9520 #### [facility] [address] [place], [address] Sodium [Moles/Vol] 139 mmol/L Normal 133-145 [facility] Comment on above: Performed By: #### L 500.4100, L501.9985, L501.9520 #### [facility] [address] [place], [address] Urea nitrogen [Mass/Vol] 14 mg/dL Normal 4-19 [facility] Comment on above: Performed By: #### L 500.4100, L501.9985, L501.9520 #### [facility] [address] [place], [address] CBC W/Diff, Automatedon 06-06 Absolute Lymph 1.85 X10 3/uL Normal 0.83-4.51 [facility] Comment on above: Performed By: #### L 500.4100, L501.9985, L501.9520 #### [facility] [address] [place], [address] Absolute Neut 6.0 X10 3/uL Normal 2.0-7.7 [facility] Comment on above: Performed By: #### L 500.4100, L501.9985, L501.9520 #### [facility] [address] [place], [address] Basophils/100 WBC (Bld) 0.7 % Normal 0-1 [facility] Comment on above: Performed By: #### L 500.4100, L501.9985, L501.9520 #### [facility] [address] [place], [address] Eosinophils/100 WBC (Bld) 3.0 % Normal 0-5 [facility] Comment on above: Performed By: #### L 500.4100, L501.9985, L501.9520 #### [facility] [address] [place], [address] Erythrocyte distribution width (RBC) [Ratio] 13.3 % Normal 11.6-14.6 [facility] Comment on above: Performed By: #### L 500.4100, L501.9985, L501.9520 #### [facility] [address] [place], [address] Hematocrit (Bld) [Volume fraction] 48.9 % Normal 40-54 [facility] Comment on above: Performed By: #### L 500.4100, L501.9985, L501.9520 #### [facility] [address] [place], [address] Hemoglobin (Bld) [Mass/Vol] 16.1 g/dL Normal 13.0-16.5 [facility] Comment on above: Performed By: #### L 500.4100, L501.9985, L501.9520 #### [facility] [address] [place] [place], [address] IG% 0.700 Normal 0.0-0.9 [facility] Comment on above: Result Comment: IG% - Immature Granulocytes (promyelocytes, myelocytes and metamyelocytes) > 1% indicates that a LEFT SHIFT is Present. Performed By: #### L 500.4100, L501.9985, L501.9520 #### [facility] [address] [place], [address] Lymphocytes/100 WBC (Bld) 20.7 % Normal 19-41 [facility] Comment on above: Performed By: #### L 500.4100, L501.9985, L501.9520 #### [facility] [address] [place], [address] MCH (RBC) [Entitic mass] 30.5 pg Normal 27.0-32.0 [facility] Comment on above: Performed By: #### L 500.4100, L501.9985, L501.9520 #### [facility] [address] [place], [address] MCHC (RBC) [Mass/Vol] 32.9 g/dL Normal 32-36 [facility] Comment on above: Performed By: #### L 500.4100, L501.9985, L501.9520 #### [facility] [address] [place], [address] MCV (RBC) [Entitic vol] 92.6 fL Normal 80-94 [facility] Comment on above: Performed By: #### L 500.4100, L501.9985, L501.9520 #### [facility] [address] [place], [address] Monocytes/100 WBC (Bld) 7.9 % Normal 0-10 [facility] Comment on above: Performed By: #### L 500.4100, L501.9985, L501.9520 #### [facility] [address] [place], [address] Neutrophils/100 WBC (Bld) 67.0 % Normal 47-70 [facility] Comment on above: Performed By: #### L 500.4100, L501.9985, L501.9520 #### [facility] [address] [place], [address] Nucleated RBC (Bld) [#/Vol] 0 10*3/uL Normal 0-5 [facility] Comment on above: Performed By: #### L 500.4100, L501.9985, L501.9520 #### [facility] [address] [place], [address] Platelet mean volume (Bld) [Entitic vol] 9.5 fL Normal 6.2-12.0 [facility] Comment on above: Performed By: #### L 500.4100, L501.9985, L501.9520 #### [facility] [address] [place], [address] Platelets (Bld) [#/Vol] 249 10*3/uL Normal 150-450 [facility] Comment on above: Performed By: #### L 500.4100, L501.9985, L501.9520 #### [facility] [address] [place], [address] RBC (Bld) [#/Vol] 5.28 10*6/uL Normal 4.6-6.2 [facility] Comment on above: Performed By: #### L 500.4100, L501.9985, L501.9520 #### [facility] [address] [place], [address] RDW SD 45.5 fl High 35.1-43.9 [facility] Comment on above: Performed By: #### L 500.4100, L501.9985, L501.9520 #### [facility] [address] [place], [address] WBC (Bld) [#/Vol] 8.9 10*3/uL Normal 4.4-11.0 [facility] Comment on above: Performed By: #### L 500.4100, L501.9985, L501.9520 #### [facility] [address] [place], [address] Basic Metabolic Profile (BMP )on 06-08-2024 BUN/CRE 7.3 RATIO Low 10-20 [facility] Comment on above: Performed By: #### L 500.4100, L100.0100, L500.2500 #### [facility] [address] [place], [address] CA,Total 8.9 mg/dL Normal 8.5-10.1 [facility] Comment on above: Performed By: #### L 500.4100, L100.0100, L500.2500 #### [facility] [address] [place], [address] Chloride [Moles/Vol] 108 mmol/L High 98-107 [facility] Comment on above: Performed By: #### L 500.4100, L100.0100, L500.2500 #### [facility] [address] [place], [address] CO2 [Moles/Vol] 26.0 mmol/L Normal 21.0-32.0 [facility] Comment on above: Performed By: #### L 500.4100, L100.0100, L500.2500 #### [facility] [address] [place], [address] Creatinine [Mass/Vol] 1.92 mg/dL High 0.70-1.30 [facility] Comment on above: Result Comment: The validity of the calculated GFR GFRAA in patients over 70 years has not been determined. Clinical correlation is essential. Performed By: #### L 500.4100, L100.0100, L500.2500 #### [facility] [address] [place], [address] EST GFR - AA 47 mL/min Low >60 [facility] Comment on above: Result Comment: Afri can [place] GFR Calc Performed By: #### L 500.4100, L100.0100, L500.2500 #### [facility] [address] [place], [address] GAP 5 Normal 5-15 [facility] Comment on above: Performed By: #### L 500.4100, L100.0100, L500.2500 #### [facility] [address] [place], [address] GFR/1.73 sq M.predicted among non-blacks MDRD (S/P/Bld) [Vol rate/Area] 39 mL/min/{1.73_m2} Low >60 [facility] Comment on above: Result Comment: Non- GFR Calc Performed By: #### L 500.4100, L100.0100, L500.2500 #### [facility] [address] [place], [address] Glucose [Mass/Vol] 148 mg/dL High 74-106 [facility] Comment on above: Result Comment: Fast ing Glucose result greater than or equal to 126 mg/dL suggests DIABETES MELLITUS per A.D.A. criteria. Performed By: #### L 500.4100, L100.0100, L500.2500 #### [facility] [address] [place], [address] Potassium [Moles/Vol] 4.4 mmol/L Normal 3.5-5.1 [facility] Comment on above: Performed By: #### L 500.4100, L100.0100, L500.2500 #### [facility] [address] [place], [address] Sodium [Moles/Vol] 139 mmol/L Normal 136-145 [facility] Comment on above: Performed By: #### L 500.4100, L100.0100, L500.2500 #### [facility] [address] [place], [address] Urea nitrogen [Mass/Vol] 14 mg/dL Normal 7-18 [facility] Comment on above: Performed By: #### L 500.4100, L100.0100, L500.2500 #### [facility] [address] [place], [address] CBC W/Diff, Automatedon 02-0 4-2024 Absolute Lymph 1.89 X10 3/uL Normal 0.83-4.51 [facility] Comment on above: Performed By: #### L 500.4100, L100.0100, L500.2500 #### [facility] [address] [place], [address] Absolute Neut 4.8 X10 3/uL Normal 2.0-7.7 [facility] Comment on above: Performed By: #### L 500.4100, L100.0100, L500.2500 #### [facility] [address] [place], [address] Basophils/100 WBC (Bld) 0.9 % Normal 0-1 [facility] Comment on above: Performed By: #### L 500.4100, L100.0100, L500.2500 #### [facility] [address] [place], [address] Eosinophils/100 WBC (Bld) 3.1 % Normal 0-5 [facility] Comment on above: Performed By: #### L 500.4100, L100.0100, L500.2500 #### [facility] [address] [place], [address] Erythrocyte distribution width (RBC) [Ratio] 13.6 % Normal 11.6-14.6 [facility] Comment on above: Performed By: #### L 500.4100, L100.0100, L500.2500 #### [facility] [address] [place], [address] Hematocrit (Bld) [Volume fraction] 50.1 % Normal 40-54 [facility] Comment on above: Performed By: #### L 500.4100, L100.0100, L500.2500 #### [facility] [address] [place], [address] Hemoglobin (Bld) [Mass/Vol] 16.2 g/dL Normal 13.0-16.5 [facility] Comment on above: Performed By: #### L 500.4100, L100.0100, L500.2500 #### [facility] [address] [place], [address] IG% 0.600 Normal 0.0-0.9 [facility] Comment on above: Result Comment: IG% - Immature Granulocytes (promyelocytes, myelocytes and metamyelocytes) > 1% indicates that a LEFT SHIFT is Present. Performed By: #### L 500.4100, L100.0100, L500.2500 #### [facility] [address] [place], [address] Lymphocytes/100 WBC (Bld) 24.5 % Normal 19-41 [facility] Comment on above: Performed By: #### L 500.4100, L100.0100, L500.2500 #### [facility] [address] [place], [address] MCH (RBC) [Entitic mass] 30.5 pg Normal 27.0-32.0 [facility] Comment on above: Performed By: #### L 500.4100, L100.0100, L500.2500 #### [facility] [address] [place], [address] MCHC (RBC) [Mass/Vol] 32.3 g/dL Normal 32-36 [facility] Comment on above: Performed By: #### L 500.4100, L100.0100, L500.2500 #### [facility] [address] [place], [address] MCV (RBC) [Entitic vol] 94.2 fL High 80-94 [facility] Comment on above: Performed By: #### L 500.4100, L100.0100, L500.2500 #### [facility] [address] [place], [address] Monocytes/100 WBC (Bld) 8.9 % Normal 0-10 [facility] Comment on above: Performed By: #### L 500.4100, L100.0100, L500.2500 #### [facility] [address] [place], [address] Neutrophils/100 WBC (Bld) 62.0 % Normal 47-70 [facility] Comment on above: Performed By: #### L 500.4100, L100.0100, L500.2500 #### [facility] [address] [place], [address] Nucleated RBC (Bld) [#/Vol] 0 10*3/uL Normal 0-5 [facility] Comment on above: Performed By: #### L 500.4100, L100.0100, L500.2500 #### [facility] [address] [place], [address] Platelet mean volume (Bld) [Entitic vol] 9.2 fL Normal 6.2-12.0 [facility] Comment on above: Performed By: #### L 500.4100, L100.0100, L500.2500 #### [facility] [address] [place], [address] Platelets (Bld) [#/Vol] 223 10*3/uL Normal 150-450 [facility] Comment on above: Performed By: #### L 500.4100, L100.0100, L500.2500 #### [facility] [address] [place], [address] RBC (Bld) [#/Vol] 5.32 10*6/uL Normal 4.6-6.2 [facility] Comment on above: Performed By: #### L 500.4100, L100.0100, L500.2500 #### [facility] [address] [place], [address] RDW SD 47.3 fl High 35.1-43.9 [facility] Comment on above: Performed By: #### L 500.4100, L100.0100, L500.2500 #### [facility] [address] [place], [address] WBC (Bld) [#/Vol] 7.7 10*3/uL Normal 4.4-11.0 [facility] Comment on above: Performed By: #### L 500.4100, L100.0100, L500.2500 #### [facility] [address] [place], [address] Lipid Profileon 06-08-2024 Cholesterol [Mass/Vol] 167 mg/dL Normal 200 [facility] Comment on above: Result Comment: <200 mg/dL Desirable 200-240 mg/dL Borderline >240 mg/dL High Risk Performed By: #### L 500.4100, L501.9985, L501.9520 #### [facility] [address] [place], [address] Cholesterol in HDL [Mass/Vol] 35 mg/dL Low [facility] Comment on above: Result Comment: The drugs N-Acetylcysteine and Metamizole may falsely depress this assay. Reference Range HDL <40 mg/dL Low HDL Cholesterol HDL >or= 60 mg/dL High HDL Cholesterol Performed By: #### L 500.4100, L501.9985, L501.9520 #### [facility] [address] [place], [address] Cholesterol in LDL [Mass/Vol] 62 mg/dL Normal 0-130 [facility] Comment on above: Performed By: #### L 500.4100, L501.9985, L501.9520 #### [facility] [address] [place], [address] Cholesterol in VLDL [Mass/Vol] 70 mg/dL High 5-40 [facility] Comment on above: Performed By: #### L 500.4100, L501.9985, L501.9520 #### [facility] [address] [place], [address] Triglyceride [Mass/Vol] 349 mg/dL High [facility] Comment on above: Result Comment: The drugs N-Acetylcysteine and Metamizole may falsely depress this assay. Serum Triglycerides Reference Interval Normal <150 mg/dL Borderline high 150 - 199 mg/dL High 200 - 499 mg/dL Very High > or = 500 mg/dL Performed By: #### L 500.4100, L501.9985, L501.9520 #### [facility] [address] [place], [address] Lung Screeningon 02-11-[address] Lung Screening [facility] Imaging Services [address] [place] [address] Lung Screening MR#: [id number] Acct: [id number] Name: MARY NELSON Rep #: [id number] : 1970 M 53 From: Jerald Friedman MD PCP: Dr. Brennan Ty MD Status: [facility] Study: Low Dose CT Lung Screening Date of Exam: 02/10 Exam# [id number] Ordering Dr: Courtney Willingham SLAB 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 SLAB 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-C [id number] EXAM: CT CHEST, LUNG CANCER SCREENING WITHOUT [...] CC: LOTTIE Willingham; Dr. Brennan Ty MD Route Salesman: Signed Normal [facility] Carotid Duplex Ultrasoundon 12-29-2023 Carotid Duplex Ultrasound [facility] Cardi[facility] Services [address] [place] [address] Carotid Duplex Ultrasound 12/29/23 0835 MR#: [id number] Acct: [id number] Name: MARY NELSON Rep #: [id number] : 1970 53 From: Parker Leger MD Attending Dr: LOTTIE Daniels Status: REG Monet WELCH Ordering Dr: Janett Read NP SLAB 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-C Date: 12/29/23 Location: [facility] Sex: M C Admitted: Reason For [...] the left vertebral artery. Procedure Carotid Duplex 29862. This is a Carotid Duplex examination using B-mode, color flow and specral Doppler. The exam was diagnostic. Exam performed in department. VL/Carotid Duplex Ultrasound Interpretation Summary Mild (<50%) stenosis right extracranial internal carotid. Mild (<50%) stenosis left extracranial internal carotid. Patent and antegrade vertebrals bilaterally. Ordering Physician: Janett Read Referring Physician: Brennan Ty Performed By: Rich Rojas, [place] 12/29/231831 Date Parker Leger MD CC: SLAB 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-C Janett Read; Dr. Brennan Ty MD Date Dictated: 12/29/23834 Date Transcribed: 12/29/231831 Route Salesman: Signed Normal [facility] Art Duplex Unilat UP Extr emon 12-29-2023 Art Duplex Unilat UP Extrem [facility] [place] [address] [place] [address] Art Duplex Unilat UP Extrem 12/29/23823 MR#: [id number] Acct: [id number] Name: MARY NELSON Rep #: [id number] : 1970 53 From: Parker Leger MD Attending Dr: Janett Read, SLAB 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-C Status: REG C Ordering Dr: Janett Read SLAB 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 SLAB 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-C Date: 12/29/23 Location: [facility] Sex: M C [...] Physician: Brennan Ty Performed By: Rich Rojas RVT 12/29/231813 Date Parkre Leger MD CC: SLAB 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-C Janett Read; Dr. Brennan Ty MD Date Dictated: 12/29/23823 Date Transcribed: 12/29/231813 Route Salesman: Signed Normal [facility] CR - History AND Physicalon 12-24-2023 CR - History & Physical [facility] Cardiac Rehab [address] [place] [address] CR - History Physical MR#: [id number] Acct: [id number] Name: MARY NELSON Rep #: [id number] : 1970 53 From: Carlos Zimmer BS, RVT PCP: Dr. Brennan Ty MD DOS: 12/24/23 CR - History Physical General Arrival date:: 12/24/23 Arrival time:: 08: Date of Referral:: 12/11/23 Date of CR [...] (vitamin D3) 25 25 mcg PO DAILY 08/29/23 mcg (1,000 unit) tablet (Vitamin D3) glucosamine sulfate 500 mg tablet 500 mg PO DAILY 07/09/23 (Glucosamine) isosorbide mononitrate 60 mg 60 mg PO DAILY #90 tabs 08/21/23 tablet,extended release 24 hr atorvastatin 80 mg [...] Positive Advanced Directives Advanced Directives Power of Feed Weigher: No Living Will: Yes Advance Directives Information Provided: No Advance Directives on File: No DNR Order?:: No Past Medical History Covid-19 Screening Physicial Symptoms Other Clinical Concerns Exposure Risk Pertinent Comorbidities Has a serious heart condition:: Yes Diabetic:: Yes Past Medical Illness Past Medical History (Updated 12/17/23 @ 10:49 by Janett Read NP, SLAB 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-C) Heart attack I21.9 Wears glasses Z97.3 History of steroid therapy Z92.[address] MUNOZ Thyroid disease E07.9 SECONDARY PARATHYROIDISM Diabetes E11.9 History of renal disease Z87.448 CKD III Arthritis M19.90 High cholesterol E78.00 Easy bruising R23.3 ON PLAVIX Excessive bleeding R58 ON PLAVIX Back pain M54.9 SCIATIC TIA (transient ischemic attack) G45.9 2006-NO RESIDUAL Syncope R55 2018 X2 EPISODES- HE [...] (03/15/13) N18.3 Atherosclerosis of coronary artery of ambler heart without angina pectoris I25.10 NSVT (nonsustained ventricular tachycardia) I47.2 Chronic radicular lumbar pain M54.16, G89.29 Spinal stenosis of lumbar region M48.06 Osteoarthritis M19.90 Hyperlipidemia E78.5 Past Surgical History Surgical History History of lateral meniscus repair of right knee History of cardiac catheterization History of coronary art (more content not included)... Normal [facility] Basic Metabolic Profile (BMP )on 12-17-2023 BUN/CRE 9.5 RATIO Low 10-20 [facility] Comment on above: Performed By: #### L 500.4100, L501.9985, L501.9520 #### [facility] [address] [place], [address] CA,Total 9.6 mg/dL Normal 8.5-10.1 [facility] Comment on above: Performed By: #### L 500.4100, L501.9985, L501.9520 #### [facility] [address] [place], [address] Chloride [Moles/Vol] 106 mmol/L Normal 98-107 [facility] Comment on above: Performed By: #### L 500.4100, L501.9985, L501.9520 #### [facility] [address] [place], [address] CO2 [Moles/Vol] 29.0 mmol/L Normal 21.0-32.0 [facility] Comment on above: Performed By: #### L 500.4100, L501.9985, L501.9520 #### [facility] [address] [place], [address] Creatinine [Mass/Vol] 1.90 mg/dL High 0.70-1.30 [facility] Comment on above: Result Comment: The validity of the calculated GFR GFRAA in patients over 70 years has not been determined. Clinical correlation is essential. Performed By: #### L 500.4100, L501.9985, L501.9520 #### [facility] [address] [place], [address] EST GFR - AA 48 mL/min Low >60 [facility] Comment on above: Result Comment: Afri can [place] GFR Calc Performed By: #### L 500.4100, L501.9985, L501.9520 #### [facility] [address] [place], [address] GAP 4 Low 5-15 [facility] Comment on above: Performed By: #### L 500.4100, L501.9985, L501.9520 #### [facility] [address] [place], [address] GFR/1.73 sq M.predicted among non-blacks MDRD (S/P/Bld) [Vol rate/Area] 39 mL/min/{1.73_m2} Low >60 [facility] [facility] Comment on above: Result Comment: Non- GFR Calc Performed By: #### L 500.4100, L501.9985, L501.9520 #### [facility] [address] [place], [address] Glucose [Mass/Vol] 154 mg/dL High 74-106 [facility] Comment on above: Result Comment: Fast ing Glucose result greater than or equal to 126 mg/dL suggests DIABETES MELLITUS per A.D.A. criteria. Performed By: #### L 500.4100, L501.9985, L501.9520 #### [facility] [address] [place], [address] Potassium [Moles/Vol] 4.3 mmol/L Normal 3.5-5.1 [facility] Comment on above: Performed By: #### L 500.4100, L501.9985, L501.9520 #### [facility] [address] [place], [address] Sodium [Moles/Vol] 139 mmol/L Normal 136-145 [facility] Comment on above: Performed By: #### L 500.4100, L501.9985, L501.9520 #### [facility] [address] [place], [address] Urea nitrogen [Mass/Vol] 18 mg/dL Normal 7-18 [facility] Comment on above: Performed By: #### L 500.4100, L501.9985, L501.9520 #### [facility] [address] [place], [address] CBC W/Diff, Automatedon 08- Absolute Lymph 1.67 X10 3/uL Normal 0.83-4.51 [facility] Comment on above: Performed By: #### L 500.4100, L501.9985, L501.9520 #### [facility] [address] [place], [address] Absolute Neut 5.1 X10 3/uL Normal 2.0-7.7 [facility] Comment on above: Performed By: #### L 500.4100, L501.9985, L501.9520 #### [facility] [address] [place], [address] Basophils/100 WBC (Bld) 0.9 % Normal 0-1 [facility] Comment on above: Performed By: #### L 500.4100, L501.9985, L501.9520 #### [facility] [address] [place], [address] Eosinophils/100 WBC (Bld) 3.7 % Normal 0-5 [facility] Comment on above: Performed By: #### L 500.4100, L501.9985, L501.9520 #### [facility] [address] [place], [address] Erythrocyte distribution width (RBC) [Ratio] 12.9 % Normal 11.6-14.6 [facility] Comment on above: Performed By: #### L 500.4100, L501.9985, L501.9520 #### [facility] [address] [place], [address] Hematocrit (Bld) [Volume fraction] 44.4 % Normal 40-54 [facility] Comment on above: Performed By: #### L 500.4100, L501.9985, L501.9520 #### [facility] [address] [place], [address] Hemoglobin (Bld) [Mass/Vol] 14.6 g/dL Normal 13.0-16.5 [facility] Comment on above: Performed By: #### L 500.4100, L501.9985, L501.9520 #### [facility] [address] [place], [address] IG% 1.000 High 0.0-0.9 [facility] Comment on above: Result Comment: IG% - Immature Granulocytes (promyelocytes, myelocytes and metamyelocytes) > 1% indicates that a LEFT SHIFT is Present. Performed By: #### L 500.4100, L501.9985, L501.9520 #### [facility] [address] [place], [address] Lymphocytes/100 WBC (Bld) 21.2 % Normal 19-41 [facility] Comment on above: Performed By: #### L 500.4100, L501.9985, L501.9520 #### [facility] [address] [place], [address] MCH (RBC) [Entitic mass] 29.5 pg Normal 27.0-32.0 [facility] Comment on above: Performed By: #### L 500.4100, L501.9985, L501.9520 #### [facility] [address] [place], [address] MCHC (RBC) [Mass/Vol] 32.9 g/dL Normal 32-36 [facility] Comment on above: Performed By: #### L 500.4100, L501.9985, L501.9520 #### [facility] [address] [place], [address] MCV (RBC) [Entitic vol] 89.7 fL Normal 80-94 [facility] Comment on above: Performed By: #### L 500.4100, L501.9985, L501.9520 #### [facility] [address] [place], [address] Monocytes/100 WBC (Bld) 8.5 % Normal 0-10 [facility] Comment on above: Performed By: #### L 500.4100, L501.9985, L501.9520 #### [facility] [address] [place], [address] Neutrophils/100 WBC (Bld) 64.7 % Normal 47-70 [facility] Comment on above: Performed By: #### L 500.4100, L501.9985, L501.9520 #### [facility] [address] [place], [address] Nucleated RBC (Bld) [#/Vol] 0 10*3/uL Normal 0-5 [facility] Comment on above: Performed By: #### L 500.4100, L501.9985, L501.9520 #### [facility] [address] [place], [address] Platelet mean volume (Bld) [Entitic vol] 9.5 fL Normal 6.2-12.0 [facility] Comment on above: Performed By: #### L 500.4100, L501.9985, L501.9520 #### [facility] [address] [place], [address] Platelets (Bld) [#/Vol] 246 10*3/uL Normal 150-450 [facility] Comment on above: Performed By: #### L 500.4100, L501.9985, L501.9520 #### [facility] [address] [place], [address] RBC (Bld) [#/Vol] 4.95 10*6/uL Normal 4.6-6.2 [facility] Comment on above: Performed By: #### L 500.4100, L501.9985, L501.9520 #### [facility] [address] [place], [address] RDW SD 42.1 fl Normal 35.1-43.9 [facility] Comment on above: Performed By: #### L 500.4100, L501.9985, L501.9520 #### [facility] [address] [place], [address] WBC (Bld) [#/Vol] 7.9 10*3/uL Normal 4.4-11.0 [facility] Comment on above: Performed By: #### L 500.4100, L501.9985, L501.9520 #### [facility] [address] [place], [address] Cardiology Visit Reporton Cardiology Visit Report [facility] [address] [place] [address] OFFICE VISIT Date of Service: 12/17/23 MR#: [id number] Acct: [id number] Name: MARY NELSON Rep #: [id number] : 1970 Provider: LOTTIE leonard Age/Sex: 53/M Location: [facility] Status: Signed HPI [...] Oximetry (%) 95 Intake Visit Reasons: S/P [facility] 12/07 STEMI Bus Monitor Required: No Is patient in pain?: No [...] 30 days #180 tabs 12/17/23 12/17/23 Rx PFSH Medical History (Updated 12/17/23 @ 10:49 by Janett Read NP, [employer] 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-C) Heart attack Wears glasses History of steroid therapy Thyroid disease Diabetes History of renal disease Arthritis High cholesterol Easy bruising Excessive bleeding Back pain TIA (transient ischemic attack) Syncope Gastric reflux Smoker Shortness of breath on exertion Chronic coug (more content not included)... Normal [facility] Thyroid Stim Hormone (TSH)on 12-17-2023 TSH 1.210 uIU/mL Normal 0.358-3.740 [facility] Comment on above: Performed By: #### L 500.4100, L501.9985, L501.9520 #### [facility] [address] [facility] [place], [place], [id number] 12 Lead EKGon 12-08-2023 12 Lead EKG [facility] Cardiovascular Services [address] [facility] [address] 12 Lead EKG 12/07/23 0541 MR#: [id number] Acct: [id number] Name: MARY NELSON Rep #: [id number] : 1970 53 From: Lamont Martel MD [...] DATA IS UNCONFIRMED Confirmed by Lamont Martel ([id number]), metropolitan editor EZEQUIEL LUDWIG ([id number]) on 12/09/2023 2:13:11 PM Referred By: Kolton Lange Confirmed By:Lamont Martel 12/09/23 1413 Date Lamont Martel MD CC: Dr. Anant Angeles DO; Dr. Kolton Lange MD; Dr. Brennan Ty MD Signed Normal [facility] Basic Metabolic Profile (BMP )on 12-08-2023 BUN/CRE 9.2 RATIO Low 10-20 [facility] Comment on above: Performed By: #### L 501.080 #### [facility] [address] [place], [address] CA,Total 8.6 mg/dL Normal 8.5-10.1 [facility] Comment on above: Performed By: #### L 501.080 #### [facility] [address] [place], [address] Chloride [Moles/Vol] 109 mmol/L High 98-107 [facility] Comment on above: Performed By: #### L 501.080 #### [facility] [address] [place], [address] CO2 [Moles/Vol] 26.0 mmol/L Normal 21.0-32.0 [facility] Comment on above: Performed By: #### L 501.080 #### [facility] [address] [place], [address] Creatinine [Mass/Vol] 1.53 mg/dL High 0.70-1.30 [facility] Comment on above: Result Comment: The validity of the calculated GFR GFRAA in patients over 70 years has not been determined. Clinical correlation is essential. Performed By: #### L 501.080 #### [facility] [address] [place], [address] ECRCL 66.48 ml/min Normal [facility] Comment on above: Performed By: #### L 501.080 #### [facility] [address] [place], [address] EST GFR - AA 61 mL/min Normal >60 [facility] Comment on above: Result Comment: Afri can Chadian GFR Calc Performed By: #### L 501.080 #### [facility] [address] [place], [address] GAP 4 Low 5-15 [facility] Comment on above: Performed By: #### L 501.080 #### [facility] [address] [place], [address] GFR/1.73 sq M.predicted among non-blacks MDRD (S/P/Bld) [Vol rate/Area] 50 mL/min/{1.73_m2} Low >60 [facility] Comment on above: Result Comment: Non- GFR Calc Performed By: #### L 501.080 #### [facility] [address] [place], [address] Glucose [Mass/Vol] 187 mg/dL High 74-106 [facility] Comment on above: Result Comment: Fast ing Glucose result greater than or equal to 126 mg/dL suggests DIABETES MELLITUS per A.D.A. criteria. Performed By: #### L 501.080 #### [facility] [address] [place], [address] Potassium [Moles/Vol] 3.5 mmol/L Normal 3.5-5.1 [facility] Comment on above: Performed By: #### L 501.080 #### [facility] [address] [place], [address] Sodium [Moles/Vol] 139 mmol/L Normal 136-145 [facility] Comment on above: Performed By: #### L 501.080 #### [facility] [address] [place], [address] Urea nitrogen [Mass/Vol] 14 mg/dL Normal 7-18 [facility] Comment on above: Performed By: #### L 501.080 #### [facility] [address] [place], [address] Discharge Instructionon 08-0 Discharge Instruction [facility] Medical Records Department [address] [place] [address] Instructions for Home/Discharge Instructions 12/08/23 1232 MR#: [id number] Acct: [id number] Name: MARY NELSON Rep #: [id number] : 1970 53 From: Anant Angeles DO [...] Lange MD; Dr. Brennan Ty MD Signed [facility] 12 Lead EKGon 12-07-2023 12 Lead EKG [facility] Cardiovascular Services [address] [place] [address] 12 Lead EKG 12/06/23 1122 MR#: [id number] Acct: [id number] Name: MARY NELSON Rep #: [id number] : 1970 53 From: Lamont Martel MD [...] DATA IS UNCONFIRMED Confirmed by Lamont Martel ([id number]), metropolitan editor EZEQUIEL LUDWIG ([id number]) on 12/09/2023 2:13:20 PM Referred By: Kolton Lange Confirmed By:Lamont Martel 12/09/23 1413 Date Lamont Martel MD CC: Dr. Anant Angeles DO; Dr. Kolton Lange MD; Dr. Brennan Ty MD Signed [facility] Basic Metabolic Profile (BMP )on 12-07-2023 BUN/CRE 8.1 RATIO Low 10-20 [facility] Comment on above: Performed By: #### L 501.080 #### [facility] [address] [place], [address] CA,Total 8.5 mg/dL Normal 8.5-10.1 [facility] Comment on above: Performed By: #### L 501.080 #### [facility] [address] [place], [address] Chloride [Moles/Vol] 112 mmol/L High 98-107 [facility] Comment on above: Performed By: #### L 501.080 #### [facility] [address] [place], [address] CO2 [Moles/Vol] 27.0 mmol/L Normal 21.0-32.0 [facility] Comment on above: Performed By: #### L 501.080 #### [facility] [address] [place], [address] Creatinine [Mass/Vol] 1.61 mg/dL High 0.70-1.30 [facility] Comment on above: Result Comment: The validity of the calculated GFR GFRAA in patients over 70 years has not been determined. Clinical correlation is essential. Performed By: #### L 501.080 #### [facility] [address] [place], [address] ECRCL 63.71 ml/min Normal [facility] Comment on above: Performed By: #### L 501.080 #### [facility] [address] [place], [address] EST GFR - AA 58 mL/min Low >60 [facility] Comment on above: Result Comment: Afri can [place] GFR Calc Performed By: #### L 501.080 #### [facility] [address] [place], [address] GAP 3 Low 5-15 [facility] Comment on above: Performed By: #### L 501.080 #### [facility] [address] [place], [address] GFR/1.73 sq M.predicted among non-blacks MDRD (S/P/Bld) [Vol rate/Area] 48 mL/min/{1.73_m2} Low >60 [facility] Comment on above: Result Comment: Non- GFR Calc Performed By: #### L 501.080 #### [facility] [address] [place], [address] Glucose [Mass/Vol] 122 mg/dL High 74-106 [facility] Comment on above: Result Comment: Fast ing Glucose result from 100 to 125 mg/dL suggests IMPAIRED HOMEOSTASIS per A.D.A. criteria. Performed By: #### L 501.080 #### [facility] [address] [place], [address] Potassium [Moles/Vol] 3.6 mmol/L Normal 3.5-5.1 [facility] Comment on above: Performed By: #### L 501.080 #### [facility] [address] [place], [address] Sodium [Moles/Vol] 142 mmol/L Normal 136-145 [facility] Comment on above: Performed By: #### L 501.080 #### [facility] [address] [place], [address] Urea nitrogen [Mass/Vol] 13 mg/dL Normal 7-18 [facility] Comment on above: Performed By: #### L 501.080 #### [facility] [address] [place], [address] CBC-Complete Blood Cnt No Di ffon 12-07-2023 Erythrocyte distribution width (RBC) [Ratio] 13.0 % Normal 11.6-14.6 [facility] Comment on above: Performed By: #### L 501.080 #### [facility] [address] [place], [address] Hematocrit (Bld) [Volume fraction] 42.9 % Normal 40-54 [facility] Comment on above: Performed By: #### L 501.080 #### [facility] [address] [place], [address] Hemoglobin (Bld) [Mass/Vol] 14.3 g/dL Normal 13.0-16.5 [facility] Comment on above: Performed By: #### L 501.080 #### [facility] [address] [place], [address] MCH (RBC) [Entitic mass] 30.4 pg Normal 27.0-32.0 [facility] Comment on above: Performed By: #### L 501.080 #### [facility] [address] [place], [address] MCHC (RBC) [Mass/Vol] 33.3 g/dL Normal 32-36 [facility] Comment on above: Performed By: #### L 501.080 #### [facility] [address] [place], [address] MCV (RBC) [Entitic vol] 91.1 fL Normal 80-94 [facility] Comment on above: Performed By: #### L 501.080 #### [facility] [address] [place], [address] Platelet mean volume (Bld) [Entitic vol] 9.0 fL Normal 6.2-12.0 [facility] Comment on above: Performed By: #### L 501.080 #### [facility] [address] [place], [address] Platelets (Bld) [#/Vol] 190 10*3/uL Normal 150-450 [facility] Comment on above: Performed By: #### L 501.080 #### [facility] [address] [place], [address] RBC (Bld) [#/Vol] 4.71 10*6/uL Normal 4.6-6.2 [facility] Comment on above: Performed By: #### L 501.080 #### [facility] [address] [place], [address] RDW SD 43.5 fl Normal 35.1-43.9 [facility] Comment on above: Performed By: #### L 501.080 #### [facility] [address] [place], [address] WBC (Bld) [#/Vol] 8.7 10*3/uL Normal 4.4-11.0 [facility] Comment on above: Performed By: #### L 501.080 #### [facility] [address] [place], [address] Comprehensive Metabolic Prof [facility] 12-07-2023 Albumin [Mass/Vol] 3.1 g/dL Low 3.2-5.0 [facility] Comment on above: Performed By: #### L 501.080 #### [facility] [address] [place], [address] Albumin/Globulin [Mass ratio] 1.0 {ratio} Normal 0.9-2.4 [facility] Comment on above: Performed By: #### L 501.080 #### [facility] [address] [place], [address] ALK P 73 U/L Normal 45-117 [facility] Comment on above: Performed By: #### L 501.080 #### [facility] [address] [place], [address] ALT [Catalytic activity/Vol] 41 U/L Normal 16-61 [facility] Comment on above: Performed By: #### L 501.080 #### [facility] [address] [place], [place], [address] AST [Catalytic activity/Vol] 26 U/L Normal 15-37 [facility] Comment on above: Performed By: #### L 501.080 #### [facility] [address], [place], [address] Bilirubin [Mass/Vol] 0.20 mg/dL Normal 0.20-1.00 [facility] Comment on above: Result Comment: For patients on eltrombopag therapy, use of Dimension [place] TBIL is not recommended. Performed By: #### L 501.080 #### [facility] [address] [place], [address] Globulin (S) [Mass/Vol] 3.0 g/dL Normal 2.2-4.2 [facility] Comment on above: Performed By: #### L 501.080 #### [facility] [address] [place], [place], [address] T PROT 6.1 g/dL Low 6.4-8.2 [facility] Comment on above: Performed By: #### L 501.080 #### [facility] [address] [place], [place], [address] 12 Lead EKGon 12-06-2023 12 Lead EKG [facility] Cardiovascular Services [address] [place] [address] 12 Lead EKG 12/06/23 0923 MR#: [id number] Acct: [id number] Name: MARY NELSON Rep #: [id number] : 1970 53 From: Lamont Martel MD Attending Dr: Dr. Anant [place], DO Status : ADM IN Ordering Dr: [...] Otherwise normal ECG Confirmed by Lamont Martel ([id number]), metropolitan editor BRETT BOWERS ([id number]) on 12/08/2023 2:12:06 PM Referred By: Kolton Lange Confirmed By:Lamont Martel 12/08/23 141 Date Lamont Martel MD CC: Dr. Jb Smith MD; Dr. Anant Angeles DO; Dr. Kolton Lange MD; Dr. Brennan Ty MD Signed [facility] 12 Lead EKG [facility] Cardiovascular Services [address] [place] [address] 12 Lead EKG 12/06/23 0932 MR#: [id number] Acct: [id number] Name: MARY NELSON Rep #: [id number] : 1970 53 From: Lamont Martel MD [...] consider inferior injury or acute infarct ACUTE WA / STEMI Consider right ventricular involvement in acute inferior infarct Abnormal ECG Confirmed by Lamont Martel ([id number]), metropolitan editor BRETT BOWERS ([id number]) on 12/08/2023 2:13:32 PM Referred By: Kolton Lange Confirmed By:Lamont Martel 12/08/23 1413 Date Lamont Martel MD CC: Dr. Jb Smith MD; Dr. Anant Angeles DO; Dr. Kolton Lange MD; Dr. Brennan Ty MD Signed Normal [facility] 12 Lead EKG [facility] Cardiovascular Services [address] [place] [address] 12 Lead EKG 12/06/23 0745 MR#: [id number] Acct: [id number] Name: MARY NELSON Rep #: [id number] : 1970 53 From: Lamont Martel MD [...] Normal ECG Confirmed by Lamont Martel ([id number]), metropolitan editor BRETT BOWERS ([id number]) on 12/08/2023 2:12:44 PM Referred By: Kolton Lange Confirmed By:Lamont Martel 12/08/23 1412 Date Lamont Martel MD CC: Dr. Jb Smith MD; Dr. Anant Angeles DO; Dr. Kolton Lange MD; Dr. Brennan Ty MD Signed Normal [facility] ACT Activated Clotting Timeo n 12-06-2023 ACTk CLOT TIME 342 sec High 74-137 [facility] Comment on above: Performed By: #### L 9100.0100 #### [facility] Laboratory [address] [place], [address] ACTk CLOT TIME 220 sec High 74-137 [facility] Comment on above: Performed By: #### L 500.4100, L501.9985, L501.9520 #### [facility] [address] [place], [address] Basic Metabolic Profile (BMP )on 12-06-2023 BUN/CRE 8.6 RATIO Low 10-20 [facility] Comment on above: Order Comment: 1Y Performed By: #### L 501.080 #### [facility] [address] [place], [address] CA,Total 9.1 mg/dL Normal 8.5-10.1 [facility] Comment on above: Order Comment: 1Y Performed By: #### L 501.080 #### [facility] [address] [place], [address] Chloride [Moles/Vol] 111 mmol/L High 98-107 [facility] Comment on above: Order Comment: 1Y Performed By: #### L 501.080 #### [facility] [address] [place], [address] CO2 [Moles/Vol] 27.0 mmol/L Normal 21.0-32.0 [facility] Comment on above: Order Comment: 1Y Performed By: #### L 501.080 #### [facility] [address] [place], [address] Creatinine [Mass/Vol] 1.85 mg/dL High 0.70-1.30 [facility] Comment on above: Order Comment: 1Y Result Comment: The validity of the calculated GFR GFRAA in patients over 70 years has not been determined. Clinical correlation is essential. Performed By: #### L 501.080 #### [facility] [address] [place], [address] ECRCL 56.32 ml/min Normal [facility] Comment on above: Order Comment: 1Y Performed By: #### L 501.080 #### [facility] [address] [place], [address] EST GFR - AA 49 mL/min Low >60 [facility] Comment on above: Order Comment: 1Y Result Comment: Afri can Chadian GFR Calc Performed By: #### L 501.080 #### [facility] [address] [place], [address] GAP 1 Low 5-15 [facility] Comment on above: Order Comment: 1Y Performed By: #### L 501.080 #### [facility] [address] [place], [address] GFR/1.73 sq M.predicted among non-blacks MDRD (S/P/Bld) [Vol rate/Area] 41 mL/min/{1.73_m2} Low >60 [facility] Comment on above: Order Comment: 1Y Result Comment: Non- GFR Calc Performed By: #### L 501.080 #### [facility] [address] [place], [address] Glucose [Mass/Vol] 163 mg/dL High 74-106 [facility] Comment on above: Order Comment: 1Y Result Comment: Fast ing Glucose result greater than or equal to 126 mg/dL suggests DIABETES MELLITUS per A.D.A. criteria. Performed By: #### L 501.080 #### [facility] [address] [place], [address] Potassium [Moles/Vol] 3.6 mmol/L Normal 3.5-5.1 [facility] Comment on above: Order Comment: 1Y Performed By: #### L 501.080 #### [facility] [address] [place], [address] Sodium [Moles/Vol] 139 mmol/L Normal 136-145 [facility] Comment on above: Order Comment: 1Y Performed By: #### L 501.080 #### [facility] [address] [place], [address] Urea nitrogen [Mass/Vol] 16 mg/dL Normal 7-18 [facility] Comment on above: Order Comment: 1Y Performed By: #### L 501.080 #### [facility] [address] [place], [address] Bedside Glucoseon 12-05-2023 FINGERSTICK GLU 181 mg/dL High 74-106 [facility] Comment on above: Result Comment: FADUMO HAND OF PATIENT CARE PER NURSING PROTOCOL Performed By: #### L 501.080 #### [facility] [address] [place], [address] CBC W/Diff, Automatedon Absolute Lymph 2.64 X10 3/uL Normal 0.83-4.51 [facility] Comment on above: Performed By: #### L 501.080 #### [facility] [address] [place], [address] Absolute Neut 4.4 X10 3/uL Normal 2.0-7.7 [facility] Comment on above: Performed By: #### L 501.080 #### [facility] [address] [place], [address] Basophils/100 WBC (Bld) 0.7 % Normal 0-1 [facility] Comment on above: Performed By: #### L 501.080 #### [facility] [address] [place], [address] Eosinophils/100 WBC (Bld) 3.6 % Normal 0-5 [facility] Comment on above: Performed By: #### L 501.080 #### [facility] [address] [place], [address] Erythrocyte distribution width (RBC) [Ratio] 12.8 % Normal 11.6-14.6 [facility] Comment on above: Performed By: #### L 501.080 #### [facility] [address] [place], [address] Hematocrit (Bld) [Volume fraction] 46.5 % Normal 40-54 [facility] Comment on above: Performed By: #### L 501.080 #### [facility] [address] [place], [address] Hemoglobin (Bld) [Mass/Vol] 15.3 g/dL Normal 13.0-16.5 [facility] Comment on above: Performed By: #### L 501.080 #### [facility] [address] [place], [address] IG% 0.700 Normal 0.0-0.9 [facility] Comment on above: Result Comment: IG% - Immature Granulocytes (promyelocytes, myelocytes and metamyelocytes) > 1% indicates that a LEFT SHIFT is Present. Performed By: #### L 501.080 #### [facility] [address] [place], [address] Lymphocytes/100 WBC (Bld) 32.0 % Normal 19-41 [facility] Comment on above: Performed By: #### L 501.080 #### [facility] [address] [place], [address] MCH (RBC) [Entitic mass] 29.9 pg Normal 27.0-32.0 [facility] Comment on above: Performed By: #### L 501.080 #### [facility] [address] [place], [address] MCHC (RBC) [Mass/Vol] 32.9 g/dL Normal 32-36 [facility] Comment on above: Performed By: #### L 501.080 #### [facility] [address] [place], [address] MCV (RBC) [Entitic vol] 91.0 fL Normal 80-94 [facility] Comment on above: Performed By: #### L 501.080 #### [facility] [address] [place], [address] Monocytes/100 WBC (Bld) 9.0 % Normal 0-10 [facility] Comment on above: Performed By: #### L 501.080 #### [facility] [address] [place], [address] Neutrophils/100 WBC (Bld) 54.0 % Normal 47-70 [facility] Comment on above: Performed By: #### L 501.080 #### [facility] [address] [place], [address] Nucleated RBC (Bld) [#/Vol] 0 10*3/uL Normal 0-5 [facility] Comment on above: Performed By: #### L 501.080 #### [facility] [address] [place], [address] Platelet mean volume (Bld) [Entitic vol] 9.1 fL Normal 6.2-12.0 [facility] Comment on above: Performed By: #### L 501.080 #### [facility] [address] [place], [address] Platelets (Bld) [#/Vol] 229 10*3/uL Normal 150-450 [facility] Comment on above: Performed By: #### L 501.080 #### [facility] [address] [place], [address] RBC (Bld) [#/Vol] 5.11 10*6/uL Normal 4.6-6.2 [facility] Comment on above: Performed By: #### L 501.080 #### [facility] [address] [place], [address] RDW SD 42.7 fl Normal 35.1-43.9 [facility] Comment on above: Performed By: #### L 501.080 #### [facility] [address] [place], [address] WBC (Bld) [#/Vol] 8.2 10*3/uL Normal 4.4-11.0 [facility] Comment on above: Performed By: #### L 501.080 #### [facility] [address] [place], [address] CBC-Complete Blood Cnt No Di ffon 12-06-2023 Erythrocyte distribution width (RBC) [Ratio] 12.8 % Normal 11.6-14.6 [facility] Comment on above: Performed By: #### L 100.0500 #### [facility] [address] [place] [address]. [place], [address] Hematocrit (Bld) [Volume fraction] 44.8 % Normal 40-54 [facility] Comment on above: Performed By: #### L 100.0500 #### [facility] [address] [place] [address]. [place], [address] Hemoglobin (Bld) [Mass/Vol] 14.9 g/dL Normal 13.0-16.5 [facility] Comment on above: Performed By: #### L 100.0500 #### [facility] [address] [facility] [place], [address] MCH (RBC) [Entitic mass] 29.7 pg Normal 27.0-32.0 [facility] Comment on above: Performed By: #### L 100.0500 #### [facility] [address] [place], [address] MCHC (RBC) [Mass/Vol] 33.3 g/dL Normal 32-36 [facility] Comment on above: Performed By: #### L 100.0500 #### [facility] [address] [place], [address] MCV (RBC) [Entitic vol] 89.2 fL Normal 80-94 [facility] Comment on above: Performed By: #### L 100.0500 #### [facility] [address] [place], [address] Platelet mean volume (Bld) [Entitic vol] 9.3 fL Normal 6.2-12.0 [facility] Comment on above: Performed By: #### L 100.0500 #### [facility] [address] [place], [address] Platelets (Bld) [#/Vol] 206 10*3/uL Normal 150-450 [facility] Comment on above: Performed By: #### L 100.0500 #### [facility] [address] [place], [address] RBC (Bld) [#/Vol] 5.02 10*6/uL Normal 4.6-6.2 [facility] Comment on above: Performed By: #### L 100.0500 #### [facility] [address] [place], [address] RDW SD 41.7 fl Normal 35.1-43.9 [facility] Comment on above: Performed By: #### L 100.0500 #### [facility] [address] [place], [address] WBC (Bld) [#/Vol] 8.7 10*3/uL Normal 4.4-11.0 [facility] Comment on above: Performed By: #### L 100.0500 #### [facility] [address] [place], [address] CTA Chest W/WO Contraston CTA Chest W/WO Contrast [facility] Imaging Services [address] [place] [address] CTA Chest W/WO Contrast MR#: [id number] Acct: [id number] Name: NELSONMARYOMER MCCANN Rep #: [id number] : 1970 M 53 From: Jerald Friedman MD PCP: Dr. Brennan Ty MD Status: REG ER Study: CTA Chest W/WO Contrast Date of Exam: 12/06/23 Exam# [id number] Ordering Dr: Jb Smith MD [id number] EXAM: CT ANGIOGRAPHY CHEST WITHOUT AND WITH [...] Jb Smith MD; Dr. Brennan Ty MD Route Salesman: Signed Normal [facility] CVS/PCIREPORTon 12-06-2023 CVS/PCIREPORT [facility] Cardiovascular Services [address] [place] [address] MR#: [id number] Acct: [id number] Name: MARY NELSON Rep #: [id number] : 1970 53 From: Kolton Lange MD Primary Care: Dr. Brennan Ty MD Status: ADM IN Referring Dr: Kolton Lange MD Sex: M C PCI Cardiac Cath Report PCI Report: PCI cardiac cath report 1. Successful PCI of the culprit lesion for STEMI/inferior WA With subtotal mid large dominant RCA, 99%, [...] seen and evaluated in the ED at [facility] Presenting with symptoms of chest pain this morning. Which is on and off With initial change noted on the monitor tech patient was given some nitroglycerin and heparin aspirin he took aspirin at home. Symptoms recurred with clear evidence of STEMI/acute inferior WA and ST elevation noted in the inferior leads including lead to 3 and aVF. Patient has extensive cardiac history with prior stents To the RCA by Dr. Suarez, here at [facility] He had 2 stents in the RCA at a different time from 2019. And he has been seen and followed regularly by his guitar instructor Dr. Louis. His other medical problem include history of diabetes, hypertension, CKD with baseline creatinine of 1.85. Patient continues to smoke. Consent; Risk and benefit of cardiac catheterization including worsening of his renal function with contrast- induced nephropathy. explained in detail patient elected to proceed informed consent obtained. Diagnostic and interventional equipment used in the [facility]. 1. 6 Sudanese sheaths placed in the right radial artery 2. 5 Sudanese JL 3 5 diagnostic catheter 3. 6 Sudanese JR 4 guide catheter 4. 0.014 180 cm BMW universal strength 5. 6 Sudanese guide liner 6. 0.035 to 60 cm J exchanged wire. 3 x 15 regular balloon 7. 3.5 x 34 mm Bear frontier drug-eluting stent Medication used in the [facility] 1. Patient received aspirin 325 mg at home 2. Heparin was used in the ER as well in the [facility] with ACT level acceptable 3. Integrilin renal dose used. 4. 200 mcg nitroglycerin/intracoron paul x 2. 5. Brilinta 180 mg used in the [facility] Procedure in detail; Patient brought to the [facility] as an emergency from the ED at [facility] Access obtained from the right radial artery then we will proceed with a diagnostic catheter 3.5 JL 5 advanced sending aorta cannulated the left main multiple views the left coronary system obtained Following this we will proceed with 6 Sudanese JR4 guide catheter and angiographic view of [...] BARTOLO. And achieve an excellent result with RSOALINDA-3 flow in the RCA and reduction of [...] underwent successful PCI of the subtotal using automobile mechanic assistant of the guide liner to deliver the stent. Following this all catheter removed Hemostasis maintained with placement of TR band to the right radial artery site No complication in the [facility] Conclusion recommendation; 53-year-old patient with a prior history of PCI stent of the RCA x 2 Patient presented with STEMI acute inferior WA in the ER Underwent successful PCI of (more content not included)... Normal [facility] Chest 1 View (Portable)on Chest 1 View (Portable) [facility] Imaging Services [address] [place] [address] Chest 1 View (Portable) MR#: [id number] Acct: [id number] Name: MARY NELSON Rep #: [id number] : 1970 M 53 From: Jerald Friedman MD PCP: Dr. Brennan Ty MD Status: REG ER Study: Chest 1 View (Portable) Date of Exam: 12/06/23 Exam# [id number] Ordering Dr: Jb Smith MD [id number] EXAM: XR CHEST, 1 VIEW CLINICAL INDICATION: [...] Jb Smith MD; Dr. Brennan Ty MD Route Salesman: Signed Normal [facility] D-Dimer Quantitative (DVT/PE )on 12-06-2023 D-DIMER QUANT 0.69 FEU/ug/m Invalid Interpretation Code 0.27-0.49 [facility] Comment on above: Result Comment: D-Di yvon ELEVATED (>0.49): Additional studies and clinical assessments are indicated to conclude diagnosis of: Deep Vein Thrombosis (DVT) or Pulmonary Embolism (PE) CRITICAL VALUE VERIFIED. CALLED TO DONTRELL ALMAGUER 12/06/23 0837 Dakota Sierra. RESULTS READ BACK BY SAME. Performed By: #### L 100.0500 #### [facility] [address] [place], [address] Echo Completeon 12-06-2023 Echo Complete [facility] Cardiovascular Services [address] [place] [address] Echo Complete 12/08/23 1027 MR#: [id number] Acct: [id number] Name: MARY NELSON Rep #: [id number] : 1970 53 From: Ming Louis MD [...] Kolton Lange Performed By: Jessica Null RCS 12/08/231336 Date Ming Louis MD CC: Dr. Anant Angeles DO; Dr. Kolton Lange MD; Dr. Brennan Ty MD Date Dictated: 12/08/237 Date Transcribed: 12/08/231336 Route Salesman: Signed Normal [facility] Emergency Department Summary on 12-06-2023 Emergency Department Summary [facility] Medical Records Department [address] [place] [address] Emergency Department Summary 12/06/23 MR#: [id number] Acct: [id number] Name: MARY NELSON Rep #: [id number] : 1970 53 From: Jb Smith MD PCP: Dr. Brennan Ty MD Status:ADM IN Location: ICU [id number] [facility] History of Present Illness Chief Complaint: Chest [...] or vomiting. No shortness of breath. [facility] Medical History Heart attack Wears glasses History [...] 3 (03/15/13) Atherosclerosis of coronary artery of ambler heart without angina pectoris NSVT (nonsustained ventricular [...] placement His (more content not included)... Normal [facility] H AND P Exam - Hospitaliston 12-06-2023 H&P Exam - Hospitalist [facility] Medical Records Department [address] [place] [address] H P Exam - Hospitalist 12/06/23 1244 MR#: [id number] Acct: [id number] Name: MARY NELSON Rep #: [id number] : 1970 53 From: Anant Angeles DO PCP: Dr. Brennan Ty MD Status:ADM IN Location: ICU [id number] HPI - General General Date of Admission: 12/06/23 Date of Service: 12/06/23 Chief Complaint: Chest pain HPI Narrative MARY NELSON, is a 53 M who presented to [facility] ED on 12/06/2023 with chest pain. Found to have ST elevations in leads I and aVL in the ER, STEMI alert called and patient taken emergently to the [facility]. Found to have subtotal occlusion of the mid RCA, had stent placement with buddhist of ROSALINDA-3 flow and reduction of stenosis to 0%. I saw the patient at bedside in the ICU after his heart cath. Patient was fatigued appearing but otherwise laying comfortably in bed, conversing normally, in no acute distress. He denied any chest pain or discomfort currently. Denied any other acute concerns. Patient has extensive cardiac history, follows with [facility], last office visit in May. NSTEMI back [...] No other acute concerns at this time. [facility] Medical History Heart attack Wears glasses History [...] 3 (03/15/13) Atherosclerosis of coronary artery of ambler heart without angina pectoris NSVT (nonsustained ventricular [...] Bactrim) Aller (more content not included)... Normal [facility] Hemoglobin A1con 12-06-2023 HbA1c (Bld) [Mass fraction] 6.9 % High 3.8-5.6 [facility] Comment on above: Result Comment: Norm al < 5.7 % Prediabetic 5.7 - 6.4 % Diabetic >or= 6.5 % Please note range changes. Performed By: #### L 500.4100, L501.9985, L501.9520 #### [facility] [address] [place], [address] L501.4020on 12-06-2023 TROPONIN-I HS 111 pg/mL High 3.0-78.0 [facility] Comment on above: Result Comment: Plea se Note: New Test Units and Gender Specific Reference Ranges. For more information see Policy Stat Procedure [place] High Sensitivity Troponin (TNIH) and attachments. Performed By: #### L 500.4100, L501.9985, L501.9520 #### [facility] [address] [place], [address] L501.5425on 12-06-2023 TROPONIN-I HS 7 pg/mL Normal 3.0-78.0 [facility] Comment on above: Order Comment: 1Y Result Comment: Plea se Note: New Test Units and Gender Specific Reference Ranges. For more information see Policy Stat Procedure [place] High Sensitivity Troponin (TNIH) and attachments. Performed By: #### L 501.080 #### [facility] [address] [place], [address] Lipid Profileon 12-06-2023 Cholesterol [Mass/Vol] 160 mg/dL Normal 200 [facility] Comment on above: Result Comment: <200 mg/dL Desirable 200-240 mg/dL Borderline >240 mg/dL High Risk Performed By: #### L 500.4100, L501.9985, L501.9520 #### [facility] [address] [place], [address] Cholesterol in HDL [Mass/Vol] 33 mg/dL Low [facility] Comment on above: Result Comment: The drugs N-Acetylcysteine and Metamizole may falsely depress this assay. Reference Range HDL <40 mg/dL Low HDL Cholesterol HDL >or= 60 mg/dL High HDL Cholesterol Performed By: #### L 500.4100, L501.9985, L501.9520 #### [facility] [address] [place], [address] LDL TNP Normal 0-130 [facility] Comment on above: Performed By: #### L 500.4100, L501.9985, L501.9520 #### [facility] [address] [place], [address] Triglyceride [Mass/Vol] 471 mg/dL High [facility] Comment on above: Result Comment: The drugs N-Acetylcysteine and Metamizole may falsely depress this assay. TRIGLYCERIDE IS GREATER THAN 400 mg/dL. LDL RESULT IS INVALID AND WILL NOT BE REPORTED. Serum Triglycerides Reference Interval Normal <150 mg/dL Borderline high 150 - 199 mg/dL High 200 - 499 mg/dL Very High > or = 500 mg/dL Performed By: #### L 500.4100, L501.9985, L501.9520 #### [facility] [address] [place], [address] VLDL TNP Normal 5-40 [facility] Comment on above: Performed By: #### L 500.4100, L501.9985, L501.9520 #### [facility] Laboratory [address] [place], [address] MR/QUALITYon 12-06-2023 /QUALITY [facility] Medical Records Department [address] [facility] [address] Quality Report 12/06/23 1100 MR#: [id number] Acct: [id number] Name: MARY NELSON Rep #: [id number] : 1970 53 From: Leonid De Souza PCP: Dr. Brennan Ty MD Status:ADM IN Y Location: ICU [id number] STEMI STEMI ED Door Time / Other REG STEMI EKG Time (1) STEMI (ST elevation myocardial infarction): Acute 12/06/23 09:32 Balloon/Aspiration Date-Time Date of Balloon/Aspiration:: 12/06/23 Time of Balloon/Aspiration:: 10:30 12/06/23 1105 Date Leonid De Souza Cosigner Signature (if applicable): Date CC: Signed Normal [facility] Partial Thromboplast Timeon 12-06-2023 aPTT Coag (Bld) [Time] 26.4 s Normal 24.1-36.2 [facility] Comment on above: Performed By: #### L 300.3900, L300.4310 #### [facility] Laboratory [address] [place], [address] Prothrombin Time w/INRon INR Coag (PPP) [Relative time] 0.9 {INR} Normal [facility] Comment on above: Performed By: #### L 300.3900, L300.4310 #### [facility] Laboratory [address] [place], [address] PT Coag (PPP) [Time] 11.8 s Normal 11.7-14.9 [facility] Comment on above: Performed By: #### L 300.3900, L300.4310 #### [facility] Laboratory [address] [place], [place], [address] Thyroid Stim Hormone (TSH)on 12-06-2023 TSH 0.89 uIU/mL Normal 0.358-3.74 [facility] Comment on above: Performed By: #### L 500.0310, L501.9985, L501.9520 #### [facility] Laboratory [address] [place], [place], [address] CNOVon 08-03-2018 CNOV Office Visit ([facility] ) -------- MARY NELSON ([id number]) 1970 M Date Time Provider Department 08/03/18 1:40 PM ELSA ROGERS [facility] During your visit today, we recorded the [...] He had sudden onset of RLQ pain [place] Susie of 2015. He was evaluated in [...] disease, chronic, stage III (GFR 30-59 ml/min) ([facility]) - OA (osteoarthritis) - Pyelonephritis - UTI (urinary tract infection) PAST SURGICAL HISTORY Procedure Laterality Date - ANGIOPLASTY 2016 Drug eluting stent - PAST SURGICAL HISTORY OF 1988 urinary stricture removal - [facility] NEPHROST[facility] CATHETER 2013 - URINARY UN-DIVERSION [...] 50,000 Units by mouth once each week. [place]-3 Fatty Acids-Vitamin E 1,000 mg cap Take [...] may also need a urology appointment within [facility] to make sure symptoms aren't arising [...] Elsa Rogers MD Referring Provider: PASCUAL MANN [[id number]] Allergies As of Date: 08/03/2018 Noted Allergy [...] 08/03/2018 1:54 PM >> DEBRA LU MA [facility] Aug 03, 2018 1:54 PM Can take up to 900 mg daily ERGOCALCIFEROL (VITAMIN D2) 50,000 UNIT CAPSULE >> Debra Lu Ma 08/03/2018 1:54 PM >> DEBRA LU MA FriAug 03, 2018 1:54 PM Vitamin d3 Problem [...] by ELSA ROGERS MD on 08/03/18 Normal [facility] PROGRESSon 08-03-2018 Protein mass conc HNO ID: [id number] Author: Elsa Rogers Service: ? Author Type: [...] He had sudden onset of RLQ pain [place] Eve of 2015. He was evaluated in ER, [...] HISTORY OF 1988 urinary stricture removal - [facility] NEPHROST[facility] CATHETER 2013 - URINARY UN-DIVERSION [...] 50,000 Units by mouth once each week. [place]-3 Fatty Acids-Vitamin E 1,000 mg cap Take [...] may also need a urology appointment within [facility] to make sure symptoms aren't arising [...] in education and counseling. Elsa Rogers MD [facility] CNCOon 08-18-2017 CNCO HNO ID: [id number] Author: Janell Samson Service: Urology Author Type: Physician Type: Letter Filed: 09/02/2017 2:55 PM Note Text: September 01, 2017 German Quiñones M.D. [address] [place] [id number] NAME: MARY NELSON [facility] NO.: [id number] DATE OF SERVICE: 08/18/2017 Dear German: I [...] Samson M.D. Date Dictated: 09/01/2017 Date Typed: [facility] 09/01/2017 JOB# [id number] Enclosure: Copy of clinic note, urodynamics report and copy of the CD with the CTU dated 08/18/[address] Quiñones. [facility] CNOVon 08-18-2017 CNOV Office Visit ([facility] ) -------- CLAUDIAMARY ([id number]) 1970 M Date Time Provider Department 08/18/17 3:00 PM JANELL SAMSON During your visit today, we recorded the following information about you: Pura Ferrer RN 08/18/2017 4:25 PM Signed [facility] UR[facility]ICS LAB URODYNAMIC [...] Modules accepted: Orders Referring Provider: JANELL SAMSON [[id number]] Allergies As of Date: 08/18/2017 Noted Allergy Reaction BACTRIM (SULFAMETHOXAZOLE-TRIMET H*07/07/2015 4 - Hives Date Reviewed: 08/18/2017 Reviewed by: Pura Ferrer RN - Fully Assessed Primary Visit Diagnosis:Neurogenic bladder [N31.9] Other Visit Diagnosis:CKD (chronic kidney disease) stage 3, GFR 30-59 ml/min [N18.3] Order(s):BASIC METABOLIC PNL [BMP] Order #: [id number] FUTURE Prescriptions as of 08/18/2017 Sig: HYDROCODONE [...] FriAug 18, 2017 3:33 PM Received from: [facility], [facility] ([facility]) LOSARTAN 100 MG TABLET >> [...] FriAug 18, 2017 3:33 PM Status: Signed [facility] UR[facility]NAMICS LAB URODYNAMIC [...] by PURA FERRER RN on 08/18/[address] [facility] [address] 3D POST PROCESSINGon 08-03 CT 3D POST PROCESSING * * *Final Report* * * DATE OF EXAM: Aug 18 2017 3:10PM [facility] - CT 3D POST PROCESSING / [...] ion, with interval removal of Bennett catheter. Route Salesman: JHONNY Transcribe Date/Time: Aug 18 2017 3:12P Dictated by : ESMER JENSEN MD This examination was interpreted and the report reviewed and electronically signed by: ESMER JENSEN MD on Aug 18 2017 3:26PM EST [id number] Normal [facility] CT UROGRAM WO/W IVCONon 08-03 CT UROGRAM WO/W IVCON * * *Final Report* * * DATE OF EXAM: Aug 18 2017 3:10PM [facility] - CT UROGRAM WO/W IVCON / [...] ion, with interval removal of Bennett catheter. Route Salesman: JHONNY Transcribe Date/Time: Aug 18 2017 3:12P Dictated by : ESMER JENSEN MD This examination was interpreted and the report reviewed and electronically signed by: ESMER JENSEN MD on Aug 18 2017 3:26PM EST [id number] Normal [facility] PROGRESSon 08-18-2017 Protein mass conc HNO ID: [id number] Author: Janell Samson Service: (none) Author Type: [...] percs and antegrade Ngrams. They understand. Normal [facility] Protein mass conc HNO ID: [id number] Author: Lamont Healy (Ct) KEY Cabrera Service: Radiology Author Type: Clinical [facility] Type: Progress Notes Filed: 08/18/2017 3:05 PM [...] Gonzalez August 18, 2017 2:50 PM Normal [facility] Protein mass conc HNO ID: [id number] Author: Vanessa (Rn) CRISTIAN Miller Service: Radiology [...] Miller RN August 18, 2017 12:26 PM Normal [facility] BRIEF OP NOTon 08-04-2017 BRIEF OP NOT HNO ID: [id number] Author: Alberto Paula Service: Radiology Author Type: Physician Type: Brief Op Note Filed: 08/04/2017 3:03 PM Note Text: Successful removal of right internal jugular tunneled catheter with local anesthesia. No immediate complication. [facility] IR CVC TUNNEL W/O PORT REMOV Duy 08-04-2017 IR CVC TUNNEL W/O PORT REMOVE * * *Final Report* * *DATE OF EXAM: Aug 04 2017 2:40PM [facility] 7670 - IR CVC TUNNEL W/O PORT [...] right internal jugular tunneled central venous catheter removal.Route Salesman : PSCBeck Transcribe Date/Time: Aug 04 2017 3:41PDictated by : ALBERTO PAULA MDThis examination was interpreted and the report reviewed and electronically signed by: ALBERTO PAULA MD on Aug 04 2017 3:45PM [facility] NURSING PROGon 08-04-2017 NURSING PROG HNO ID: [id number]: Iraida (Rn) MATHEW Zarateervice: RadiologyAuthor Type: Registered NurseType: Nursing Progress NoteFiled: 08/04/2017 3:03 PMNote Text:Nursing Progress Note Topic of Note:Mary [id number] Pt brought back to hydration room, pt positioned in recling chair.Dressing to tunneled PICC removed, area preppedCatheter removed per Dr. Paula, tip intact at 28 cm dressing applied oversite. Instructions [id number] pt discharged.This note was completed by: Iraida Zarate RN [facility] HOSPon 07-31-2017 HOSP Patient:Berto Nelson omerMR N: Height:6' 1(1.854 m)Weight:227 lb (102.967 kg)Outpatient [...] 3.7HEMA* 44.5 % 07/21/2017 54 40Progress Notes (INFD MAIN):Parker Norris Survey Research Teacher 07/30/2017 4:22 PM SignedPt called requesting an order for his home care nurse to remove his picc linefaxed to сергей @ [phone] pt Mary Ellen Norris Admin AsstProgress Notes ([facility]):Indira Clarke, RN, RN 07/25/2017 2:39 PM SignedPt scheduled for trevor removal, states he has been off of his Brillinta since [id number] unsure when he needs to restart it will be speaking with guitar instructor benji let us know. Pre-procedure instructions gone over. Normal [facility] .Auto Diffon 07-06-2017 Basophils Auto #/vol (Bld) 0.10 10 3/mcL Normal 0.00-0.19 [facility] ([place]) Comment on above: Performed By: #### C BC, ADIFF, ANEU, GFR, BMP ####[address] [place], [place] [address] Basophils/100 WBC Auto (Bld) 0.9 % Normal 0.0-2.5 [facility] ([place]) Comment on above: Performed By: #### C BC, ADIFF, ANEU, GFR, BMP ####[address] [place], [place] [address] Eosinophils 0.30 10 3/mcL Normal 0.00-0.40 [facility] ([place]) Comment on above: Performed By: #### C BC, ADIFF, ANEU, GFR, BMP ####[address] [place], [place] [address] Eosinophils/100 leukocytes 3.8 % Normal 0.0-7.0 [facility] ([place]) Comment on above: Performed By: #### C BC, ADIFF, ANEU, GFR, BMP ####[address] [place], [place] [address] Lymphocytes 1.70 10 3/mcL Normal 0.77-3.85 [facility] ([place]) Comment on above: Performed By: #### C BC, ADIFF, ANEU, GFR, BMP ####[address] [place], [place] [address] Lymphocytes/100 leukocytes 22.1 % Normal 10.0-50.0 [facility] ([place]) Comment on above: Performed By: #### C BC, ADIFF, ANEU, GFR, BMP ####[address] [place], [place] [address] Monocytes 0.60 10 3/mcL Normal 0.15-1.00 [facility] ([place]) Comment on above: Performed By: #### C BC, ADIFF, ANEU, GFR, BMP ####[address] [place], [place] [address] Monocytes/100 leukocytes 7.3 % Normal 1.7-13.0 [facility] ([place]) Comment on above: Performed By: #### C BCGEE ANEU, GFR, BMP ####[address] [place], [place] [address] Neutrophils/100 WBC Auto (Bld) 65.9 % Normal 37.0-80.0 [facility] ([place]) Comment on above: Performed By: #### C BC ADIRVING ANEU, GFR, BMP ####[address] [place], [place] [address] .GFRon 07-06-2017 eGFR (non-black) 39 ml/min/1.73sqm Normal A [facility] ([place]) Comment on above: Result Comment: GFR Population [...] square meters Performed By: #### C BC ADIRVING, ANEU, GFR, BMP ####[address] [place], [place] [address] eGFR (non-black) 47 ml/min/1.73sqm Normal A [facility] ([place]) Comment on above: Result Comment: GFR [...] mL/min/1.73 square meters Performed By: #### C BC, ADIFF, ANEU, GFR, BMP ####[address] [place], [place] [address] .NEUABSon 07-06-2017 Neutrophils 5.20 10 3/mcL Normal 2.85-6.16 [facility] ([place]) Comment on above: Performed By: #### C BC, ADIFF, ANEU, GFR, BMP ####[address] [place], [place] [address] .Urinalysis Microscopic (AO) on 07-06-2017 UA Squam Epithelial None Seen Normal None Seen [facility] ([place]) Comment on above: Performed By: #### U A, UAMICAO ####[address] [place], [place] [address] UA WBC 0-5 Abnormal None Seen [facility] ([place] Comment on above: Performed By: #### U A, UAMICAO ####[address] [place], [place] [address] Urine, erythrocytes LOADED Abnormal None Seen [facility] ([place] Comment on above: Performed By: #### U A, UAMICAO ####[address] [place], [place] [address] BMPon 07-06-2017 Glucose mass conc 110 mg/dL High 70-105 [facility] ([place]) Comment on above: Performed By: #### C BC, ADIFF, ANEU, GFR, BMP ####[address] [place], [place] [address] BUN/Creatinine Ratio 9 ratio Normal 7-27 [facility] ([place]) Comment on above: Performed By: #### C BC, ADIFF, ANEU, GFR, BMP ####[address] [place], [place] [address] Creatinine 1.8 mg/dL High 0.6-1.2 [facility] ([place]) Comment on above: Performed By: #### C BC, ADIFF, ANEU, GFR, BMP ####[address] [place], [place] [address] CO2 25 mmol/L Normal 22-29 [facility] ([place] Comment on above: Performed By: #### C BC, ADIFF, ANEU, GFR, BMP ####[address] [place], [place] [address] Electrolyte Balance 8.0 mEq/L Normal [facility] ([place]) Comment on above: Performed By: #### C BC, ADIFF, ANEU, GFR, BMP ####[address] [place], [place] [address] Calcium 9.3 mg/dL Normal 8.4-10.2 [facility] ([place]) Comment on above: Performed By: #### C BC, ADIFF, ANEU, GFR, BMP ####[address] [place], [place] [address] Urea nitrogen 16.2 mg/dL Normal 7.0-18.0 [facility] ([place]) Comment on above: Performed By: #### C BC, ADIFF, ANEU, GFR, BMP ####[address] [place], [place] [address] Chloride 105 mmol/L Normal 98-107 [facility] ([place] Comment on above: Performed By: #### C BC, ADIFF, ANEU, GFR, BMP ####[address] [place], [place] [address] Potassium molar conc 4.4 mmol/L Normal 3.5-5.1 [facility] ([place]) Comment on above: Performed By: #### C BC, ADIFF, ANEU, GFR, BMP ####[address] [place], [place] [address] Sodium 138 mmol/L Normal 136-146 [facility] ([place] Comment on above: Performed By: #### C BC, ADIFF, ANEU, GFR, BMP ####[address] [place], [place] [address] CBCon 07-06-2017 Erythrocyte distribution width Auto Ratio (RBC) 13.9 % Normal 11.5-14.5 [facility] ([place] Comment on above: Performed By: #### C BC, ADIFF, ANEU, GFR, BMP ####[address] [place], [place] [address] Erythrocytes (RBC) 5.19 10 6/mcL Normal 4.04-6.13 [facility] ([place]) Comment on above: Performed By: #### C BC, ADIFF, ANEU, GFR, BMP ####[address] [place], [place] [address] Hematocrit (HCT) 45.7 % Normal 42.0-52.0 [facility] ([place] Comment on above: Performed By: #### C BC, ADIFF, ANEU, GFR, BMP ####[address] [place], [place] [address] Hemoglobin mass conc (Bld) 15.1 G/dL Normal 14.0-18.0 [facility] ([place] Comment on above: Performed By: #### C BC, ADIFF, ANEU, GFR, BMP ####[address] [place], [place] [address] MCH 29.0 pg Normal 27.0-31.2 [facility] ([place] Comment on above: Performed By: #### C BC, ADIFF, ANEU, GFR, BMP ####[address] [place], [place] [address] MCHC mass conc (RBC) 33.0 G/dL Normal 31.8-35.4 [facility] ([place]) Comment on above: Performed By: #### C BC, ADIFF, ANEU, GFR, BMP ####[address] [place], [place] [address] MCV 88.0 fL Normal 80.0-94.0 [facility] ([place] Comment on above: Performed By: #### C BC, ADIFF, ANEU, GFR, BMP ####[address] [place], [place] [address] Platelet mean volume (PMV) 7.8 fL Normal 7.4-10.4 [facility] ([place]) Comment on above: Performed By: #### C BC, ADIFF, ANEU, GFR, BMP ####[address] [place], [place] [address] Platelets 208 10 3/mcL Normal 130-400 [facility] ([place] Comment on above: Performed By: #### C BC, ADIFF, ANEU, GFR, BMP ####[address] [place], [place] [address] WBC (Leukocytes) 7.90 10 3/mcL Normal 4.60-10.80 [facility] ([place]) Comment on above: Performed By: #### C BC, ADIFF, ANEU, GFR, BMP ####[address] [place], [place] [address] CT ABDOMEN/PELVIS W/O CONTRA STon 07-06-2017 CT [...] 11:00:44 AM Sign Date: 07/06/2017 11:12:26 AM Normal [facility] ([place]) [facility] Note on 07-06-2017 [facility] Normal [facility] ([place]) Pat Eduon 07-06-2017 Pat Edu [facility] ([place]) Patient Summary Documentson 07-06-2017 Patient Summary Documents [facility] ([place] UAon 07-06-2017 UA Specimen Type Catheter [facility] ([place] Comment on above: Performed By: #### U A, UAMICAO ####[address] [place], [place] [address] UA Appear CLOUDY [facility] ([place] Comment on above: Performed By: #### U A, UAMICAO ####[address] [place], [place] [address] UA Blood LARGE [facility] ([place] Comment on above: Performed By: #### U A, UAMICAO ####[address] [place], [place] [address] UA Leuk Est TRACE [facility] ([place] Comment on above: Performed By: #### U A, UAMICAO ####[address] [place], [place] [address] UA Nitrite Negative [facility] ([place] Comment on above: Performed By: #### U A, UAMICAO ####[address] [place], [place] [address] UA pH 7.0 [facility] ([place] Comment on above: Performed By: #### U A, UAMICAO ####[address] [place], [place] [address] UA Protein 100 mg/dL Abnormal Negative [facility] ([place] Comment on above: Performed By: #### U A, UAMICAO ####[address] [place], [place] [address] UA Spec Grav 1.010 Abnormal [facility] ([place] Comment on above: Performed By: #### U A, UAMICAO ####[address] [place], [place] [address] UA Urobilinogen 0.2 E.U./dL [facility] ([place] Comment on above: Performed By: #### U A, UAMICAO ####[address] [place], [place] [address] Urine, color RED Normal [facility] ([place] Comment on above: Performed By: #### U A, UAMICAO ####[address] [place], [place] [address] Urine, glucose Negative Normal [facility] ([place] Comment on above: Performed By: #### U A, UAMICAO ####[address] [place], [place] [address] Urine, ketones presence TRACE Normal [facility] ([place] Comment on above: Performed By: #### U A, UAMICAO ####[address] [place], [place] [address] Urine, urobilinogen SMALL Normal [facility] ([place] Comment on above: Performed By: #### U A, UAMICAO ####[address] [place], [place] [address] Office Visit: [facility] 11-02-19 17 Documentation of current medications (procedure) Done Invalid Interpretation Code [facility] Work Phone: [phone] Fall risk assessment No Invalid Interpretation Code [facility] Work Phone: [phone] Office Visit: [facility] 10-23-19 17 Documentation of current medications (procedure) Done Invalid Interpretation Code [facility] Work Phone: [phone] Fall risk assessment No [facility] Work Phone: [phone] Protein mass conc Done [facility] Work Phone: [phone] Replaced Document: Amina Olsen CG Aleciaon 10-22-2016 EKG QRS axis 63 deg [facility] Work Phone: [phone] electrocardiogram interpretation Sinus Rhythm WITHIN NORMAL LIMITS Invalid Interpretation Code [facility] Work Phone: [phone] GE use only - for [employer] import when terms are not otherwise specified 392 ms Invalid Interpretation Code [facility] Work Phone: [phone] Interpretation Sinus Rhythm WITHIN NORMAL LIMITS [facility] Work Phone: [phone] P [address] Plane -1 deg [facility] Work Phone: [phone] P wave axis, electrocardiogram -1 deg Invalid Interpretation Code [facility] Work Phone: [phone] KS Interval 150 ms [facility] Work Phone: [phone] KS interval, electrocardiogram 150 ms Invalid Interpretation Code [facility] Work Phone: [phone] Pulse (Heart Rate) 83 /min Invalid Interpretation Code [facility] Work Phone: [phone] QRS axis, electrocardiogram 63 deg Invalid Interpretation Code [facility] Work Phone: [phone] QRS Duration 90 ms [facility] Work Phone: [phone] QRS duration, electrocardiogram 90 ms Invalid Interpretation Code [facility] Work Phone: [phone] QT Interval new path ms [facility] Work Phone: [phone] QT interval, electrocardiogram new path ms Invalid Interpretation Code [facility] Work Phone: [phone] QTc Nash 392 ms [facility] Work Phone: [phone] T [address] 74 deg [facility] Work Phone: [phone] T wave axis, electrocardiogram 74 deg Invalid Interpretation Code [facility] Work Phone: [phone] External Other: Preferred Me thod of Contacton 10-03-2016 methcontact secmsg [facility] Work Phone: [phone] Patient's prefered method of contact secmsg Invalid Interpretation Code [facility] Work Phone: [phone] Clinical Lists Update: 09-30-2016 Hematocrit (HCT) 38.1 % Low [facility] Work Phone: [phone] Hematocrit Volume Fraction (Bld) 38.1 % Low [facility] Work Phone: [phone] Hemoglobin (HGB) 12.9 g/dL Low [facility] Work Phone: [phone] Platelets 192 10*3/mm3 Invalid Interpretation Code [facility] Work Phone: [phone] Platelets #/vol (Bld) 192 10*3/mm3 [facility] Work Phone: [phone] Clinical Lists Update: 2017 Anion gap 9 mmol/L Invalid Interpretation Code [facility] Work Phone: [phone] Anion gap molar conc 9 mmol/L [facility] Work Phone: [phone] BUN/Creatinine Ratio 7.3 mg/mg Low [facility] Work Phone: [phone] Calcium 7.8 mg/dL Low [facility] Work Phone: [phone] Chloride 110 mmol/L High [facility] Work Phone: [phone] Cholesterol 206 mg/dL Invalid Interpretation Code [facility] Work Phone: [phone] CO2 25 mmol/L Invalid Interpretation Code [facility] Work Phone: [phone] CO2 ppres (BldV) 25 mmol/L [facility] Work Phone: [phone] Creatinine 1.65 mg/dL High [facility] Work Phone: [phone] Glucose 116 mg/dL High [facility] Work Phone: [phone] Glucose mass conc 116 mg/dL High [facility] Work Phone: [phone] HDL Cholesterol 24 mg/dL Invalid Interpretation Code [facility] Work Phone: [phone] LDL Cholesterol 85 mg/dL Invalid Interpretation Code [facility] Work Phone: [phone] Potassium 3.8 mmol/L Invalid Interpretation Code [facility] Work Phone: [phone] Sodium 144 mmol/L Invalid Interpretation Code [facility] Work Phone: [phone] Triglyceride 150 mg/dL Invalid Interpretation Code [facility] Work Phone: [phone] Urea nitrogen 12 mg/dL Invalid Interpretation Code [facility] Work Phone: [phone] Office Visiton 06-28-2015 Documentation of current medications (procedure) Done Invalid Interpretation Code [facility] Work Phone: [phone] Protein mass conc yes [facility] Work Phone: [phone] Protein mass conc Done [facility] Work Phone: [phone] Smoking cessation education (procedure) yes Invalid Interpretation Code [facility] Work Phone: [phone] Tobacco smoking status NHIS Current every day smoker [facility] Work Phone: [phone] Tobacco use CPHS Current every day smoker Invali d Interpretation Code [facility] Work Phone: [phone] Vital Signs Date Time Vital Sign Value Performing Clinician Rebeka pope 11-01-2016 10:08-0400 BMI (Body Mass Index) 28.63 kg/m2 Ruben Roof SLAB 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 [facility] Work Phone: 11-01-2016 10:08-0400 BP Diastolic 80 mm[Hg] Ruben Roof SLAB 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 [facility] Work Phone: 11-01-2016 10:08-0400 BP Systolic 118 mm[Hg] Ruben Roof SLAB 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 [facility] Work Phone: 11-01-2016 10:08-0400 Pulse (Heart Rate) 72 /min Ruben Roof SLAB 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 [facility] Work Phone: 11-01-2016 10:08-0400 Weight 98.43 kg Ruben Roof SLAB 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 [facility] Work Phone: 10-22-2016 10:27-0400 Heart rate 83 /min Dayan Khan [facility] Work Phone: 10-22-2016 10:12-0400 BMI (Body Mass Index) 28.23 kg/m2 Dayan [facility] Work Phone: 10-22-2016 10:12-0400 BP Diastolic 90 mm[Hg] Dayan Khan [facility] Work Phone: 10-22-2016 10:12-0400 BP Systolic 120 mm[Hg] Dayan Khan [facility] Work Phone: 10-22-2016 10:12-0400 Height 185.42 cm Dayan Khan [facility] Work Phone: 10-22-2016 10:12-0400 Pulse (Heart Rate) 83 /min Dayan Khan [facility] Work Phone: 10-22-2016 10:12-0400 Respiratory Rate 16 /min Dayan Khan [facility] Work Phone: 10-22-2016 10:12-0400 Weight [...] Date Encounter Type Care Provider Facility Start: 10-25-2024 ambulatory Venus Munoz [facility] Start: 09-17-2024 End: 09-17-2024 ambulatory Brennan Ty Facility:[facility] Start: 07-21-2024 ambulatory Ruben Armendariz Facility:[facility] Start: 07-21-2024 End: 07-21-2024 ambulatory Ruben H Roof Facility:[facility] Start: 07-07-2024 End: 07-07-2024 ambulatory Ruben H Roof Facility:[facility] Start: 07-02-2024 End: 07-02-2024 ambulatory Brennan Ty Facility:[facility] Start: 06-08-2024 End: 06-08-2024 ambulatory Brennan Parkerelsen Facility:[facility] Start: 05-15-2024 ambulatory [place] Heriberto Facility:[facility] Start: 05-06-2024 ambulatory Loren DOE Facility:[facility] Start: 04-05-2024 End: 05-04-2024 ambulatory [place] Heriberto Facility:[facility] Start: 03-12-2024 End: 04-03-2024 ambulatory Ming Heriberto Facility:[facility] Start: 03-03-2024 End: 03-04-2024 ambulatory [place] Heriberto Facility:[facility] Start: 02-11-2024 End: 02-11-2024 ambulatory Courtney Willingham Facility:[facility] Start: 01-28-2024 End: 02-02-2024 ambulatory Brennan Ty Facility:[facility] Start: 12-31-2023 End: 01-03-2024 ambulatory Brennan Ty Facility:[facility] Start: 12-30-2023 ambulatory Brennan Ty [facility] Start: 12-29-2023 ambulatory Brennan Ty [facility] Start: 12-29-2023 End: 12-29-2023 ambulatory Brennan Ty Facility:[facility] Start: 12-24-2023 End: 12-24-2023 ambulatory Brennan Ty Facility:[facility] Start: 12-17-2023 End: 12-17-2023 ambulatory Brennan Ty Facility:[facility] Start: 12-17-2023 End: 12-17-2023 ambulatory Brennan Ty Facility:[facility] Start: 12-11-2023 ambulatory Brennan Ty [facility] Start: 12-08-2023 ambulatory Ming Heriberto [facility] Start: 12-06-2023 ambulatory Kolton Lange [facility] Start: 12-06-2023 End: 12-08-2023 Evaluation and management of inpatient Fark Belal Facility:[facility] Start: 12-06-2023 ambulatory [facility] Start: 08-03-2018 End: 08-04-2018 Patient encounter procedure ELSA ROGERS [facility] Start: 08-18-2017 End: 08-20-2017 Patient encounter procedure JANELL SAMSON [facility] Start: 08-04-2017 End: 08-04-2017 Ambulatory ALBERTO Healy JUAREZ [facility] Start: 07-06-2017 End: 07-06-2017 Emergency department patient visit TANGELA GUNN Facility:[facility] Procedures Date Procedure Procedure Detail Performing Clinician Start: 11-01-2016 End: 11-06-2016 STEFANIE Armendariz [employer] 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 Work Phone: Start: 11-01-2016 End: 11-06-2016 Follow Up Appt 6 months Ruben Armendariz NP Work Phone: Start: 10-22-2016 End: 10-22-2016 STEFANIE Tomlinson PA-C Work Phone: Start: 10-22-2016 End: 10-22-2016 Follow Up Appt 3 months Loren barney PA-C Work Phone: Start: 10-04-2016 End: 11-06-2016 Referral to guitar instructor Pascual Suarez MD Work Phone: Start: 10-03-2016 End: 10-03-2016 Nurse, Teaching, Wound Check (no charge) Pascual Suarez MD Work Phone: Start: 10-03-2016 Placement of stent i n coronary artery Status post cardiac stent placement Dayan Khan Plan of Treatment Date Care Activity Detail Author Start: 05-12-2017 End: 05-12-2017 Appointment Appointment [facility] Work Phone: Start: 01-23-2017 End: 01-23-2017 Appointment Appointment [facility] Work Phone: Start: 11-06-2016 End: 11-06-2016 Appointment Appointment [facility] Work Phone: Start: 11-01-2016 End: 11-06-2016 STEFANIE WATTS [facility] Work Phone: Start: 11-01-2016 End: 11-06-2016 Follow Up Appt 6 months Follow Up Appt 6 months [facility] Work Phone: Start: 10-22-2016 End: 10-22-2016 Appointment Appointment [facility] Work Phone: Start: 10-22-2016 End: 10-22-2016 STEFANIE WATTS [facility] Work Phone: Start: 10-22-2016 End: 10-22-2016 Follow Up Appt 3 months Follow Up Appt 3 months [facility] Work Phone: Start: 10-04-2016 End: 10-04-2016 Cardiac Rehab [facility] [address] [place], [address] [facility] Work Phone: Start: 10-03-2016 End: 10-03-2016 Appointment Appointment [facility] Work Phone: Start: 10-03-2016 End: 10-04-2016 *BMP *BMP [facility] Work Phone: Start: 10-03-2016 End: 10-04-2016 Stress Echocardiogram (treadmill) Stress Echocardiogram (treadmill) [facility] Work Phone: Payers Date Payer Category Payer Self-pay 2023 Medicare [id number] 2017 Medicare [id number] Unknown [id number] 2.16.8 40.1.772950.3.579.2.462 Unknown [id number] 2.16.8 40.1.439243.3.579.2.462 Unknown [id number] 2.16.8 40.1.944589.3.579.2.462 Unknown [id number] 2.16.8 40.1.243467.3.579.2.462 Unknown [id number] 2.16.8 40.1.394656.3.579.2.462 Unknown [id number] 2.16.8 40.1.192071.3.579.2.462 Unknown [id number] 2.16.8 40.1.359650.3.579.2.462 Unknown [id number] 2.16.8 40.1.154234.3.579.2.462 Unknown [id number] 2.16.8 40.1.647223.3.579.2.462 Unknown [id number] 2.16.8 40.1.590067.3.579.2.462 Unknown [id number] 2.16.8 40.1.732387.3.579.2.462 Unknown [id number] 2.16.8 40.1.554374.3.579.2.462 Unknown [id number] 2.16.8 40.1.534654.3.579.2.462 Unknown [id number] 2.16.8 40.1.678624.3.579.2.462 Unknown [id number] 2.16.8 40.1.437784.3.579.2.462 Unknown [id number] 2.16.8 40.1.983401.3.579.2.462 Unknown [id number] 2.16.8 40.1.220275.3.579.2.462 Unknown [id number] 2.16.8 40.1.503930.3.579.2.462 Unknown [id number] 2.16.8 40.1.154890.3.579.2.462 Unknown [id number] 2.16.8 40.1.027049.3.579.2.462 Unknown [id number] 2.16.8 40.1.952036.3.579.2.462 Unknown [id number] 2.16.8 40.1.222910.3.579.2.462 Unknown [id number] 2.16.8 40.1.815155.3.579.2.462 Unknown [id number] 2.16.8 40.1.689967.3.579.2.462 Unknown [id number] 2.16.8 40.1.908095.3.579.2.462 Unknown [id number] 2.16.8 40.1.299660.3.579.2.462 Unknown [id number] 2.16.8 40.1.393687.3.579.2.462 Unknown [id number] 2.16.8 40.1.824044.3.579.2.462 Unknown [id number] 2.16.8 40.1.106109.3.579.2.462 Discharge summary note 12-08-2023 Note Date & Type Note Facility 12-08-2023 Note [facility] Medical Records Department [address] [place] [address] Discharge Summary 12/08/23 1233 MR#: [id number] Acct: [id number] Name: MARY NELSON Rep #: [id number] : 1970 53 From: Anant Angeles DO PCP: Dr. Brennan Ty MD Status:DIS IN Location: ICU [id number] Providers Date of Admission: 12/06/23 Date of [...] Patient is a 53-year-old male who presented [facility] ED on 12/06/2023 with chest pain. Hospital course as noted below. Patient discharged home with no therapy needs in stable condition on 12/07. . STEMI; prior history of STEMI and NSTEMI, [...] No inpatient nephrology needs, follow-up with outpatient office director as needed. 3. Type 2 diabetes mellitus [...] History of eleva (more content not included)... [facility] Summary Purpose Family History No Family History [...] section and content) DATE CREATED AUTHOR 10/23/2017 [facility] DATE CREATED AUTHOR AUTHOR'S MOI BURROUGHS 10/24/2017 [facility] DATE CREATED AUTHOR AUTHOR'S ORGANIZ ATION 08/07/2018 [facility] DATE CREATED AUTHOR AUTHOR'S ORGANIZ ATION 10/26/2024 [facility] FOR RECORDS PERTAINING TO PATIENTS WHO [...] BE BASED ON THE PRIMARY CLINICAL RECORDS. [employer] provides no warranty or guarantee of the accuracy or completeness of information in this document.
[2024-10-30 16:30] LABS: Anion Gap 11 (5-15); BUN 14 mg/dL (4-19); BUN/Creat Ratio 6.7 RATIO (10-20); Calcium,Total 9.8 mg/dL (7.6-11.0); Carbon Dioxide 24.2 mmol/L (21.0-32.0); Chloride 104 mmol/L (98-108); Creatinine, Serum 2.03 mg/dL (0.70-1.20); EST Glomerular Filtration Rate 38 (>60); Estimated Creatinine Clearance 50.71 ml/min (50-250); Glucose 116 mg/dL (70-99); Sodium Level 140 mmol/L (133-145)
[2024-10-30 17:18] VITALS: BP 132/87; PULSE 65; RESP 20; TEMP 36.4; O2SAT 95
== END 2024-10-30 17:19 | disposition home or self-care (01) ==
PROVIDERS: Emergency Provider Emergency Medicine; PCP Family Medicine; Referring Provider Emergency Medicine; Visit Provider Emergency Medicine
DX: M54.2 Cervicalgia (principal); E11.22 Type 2 diabetes mellitus with diabetic chronic kidney disease; N18.30 Chronic kidney disease, stage 3 unspecified; R29.898 Other symptoms and signs involving the musculoskeletal system; E78.00 Pure hypercholesterolemia, unspecified; R53.1 Weakness; I12.9 Hypertensive chronic kidney disease with stage 1 through stage 4 chronic kidney disease, or unspecified chronic kidney disease; I25.10 Atherosclerotic heart disease of native coronary artery without angina pectoris; Z95.5 Presence of coronary angioplasty implant and graft; Z86.73 Personal history of transient ischemic attack (TIA), and cerebral infarction without residual deficits; I25.2 Old myocardial infarction; F17.210 Nicotine dependence, cigarettes, uncomplicated
CPT/HCPCS: 72125; 80048; 85025; 93005; 99283; A4216

== ENCOUNTER → 2024-11-11 | Outpatient (CLI) | payer MEDICARE, SELFPAY ==
--- NOTE | 2024-11-11 15:48 | MRI_ITS ---
PROCEDURE: SPINE CERVICAL (ROUTINE) 11/11/2024 REASON FOR EXAM: RADICULOPATHY TECHNIQUE: SPINE CERVICAL (ROUTINE) Multiplanar and multisequence images were obtained without IV contrast administration. COMPARISON: 10-30-2024 FINDINGS: Straightening of cervical spine curve denoting muscle spasm. Preserved vertebral bodies height. No vertebral fractures or dislocation. Normal craniometric measures of the craniovertebral junction Mild cervical spondylodegenerative changes evident by multilevel anterior marginal osteophytic lipping and subchondral degenerative marrow signal/Modio II of the examined vertebral end plates with variable degrees of reduced bright T2 signal of the intervertebral discs. C1-C2: Atlantodens interval is preserved. Odontoid process and atlantoaxial joint appear normal. Mild atlanto-axial degenerative changes. C2-C3: There is no significant disc pathology. Normal morphology of the ligamentum flava. No arthropathy of the uncovertebral joints. No significant spinal canal stenosis noted. C3-C4: There is no significant disc pathology. Normal morphology of the ligamentum flava. No arthropathy of the uncovertebral joints. No significant spinal canal stenosis noted. C4-C5: a diffuse disc bulge along with bilateral uncovertberal arthropathy and ligamenta flava hypertrophy indenting the theca encroaching upon the related neural exit foramina inducing marked exiting nerve roots compression. C5-C6: a diffuse disc bulge indenting the theca encroaching upon the related neural exit foramina inducing moderate exiting nerve roots compression. C6-C7: a diffuse disc bulge indenting the theca encroaching upon the related neural exit foramina inducing moderate exiting nerve roots compression. C7-T1: There is no significant disc pathology. Normal morphology of the ligamentum flava. No arthropathy of the uncovertebral joints. No significant spinal canal stenosis noted. Normal appearance of the examined cervical cord and cranio-cervical junction. No marrow infiltrative lesions. No paraspinal soft tissue masses. MRI/Spine Cervical (Routine) IMPRESSION: Straightening of cervical curve denoting myospasm. Mild cervical spondylodegenerative changes with multilevel disc changes along w ith uncovertberal arthropathy inducing neural foraminal compromise as detailed. Reading [facility]
== END | disposition home or self-care (01) ==
PROVIDERS: PCP Family Medicine; Referring Provider Anesthesiology Pain Medicine; Visit Provider Anesthesiology Pain Medicine
DX: M54.12 Radiculopathy, cervical region (principal)
CPT/HCPCS: 72141

== ENCOUNTER → 2024-12-15 | Outpatient (CLI) | payer MEDICARE, SELFPAY ==
[2024-12-15 12:57] LABS: AST(SGOT) 26 U/L (<=37); Alanine Aminotransfer ALT/SGPT 35 U/L (<=46); Albumin, Serum 4.1 g/dL (3.5-5.0); Alkaline Phosphatase 97 U/L (40-129); Anion Gap 12 (5-15); BUN 18 mg/dL (4-19); BUN/Creat Ratio 10.0 RATIO (10-20); Calcium,Total 9.5 mg/dL (7.6-11.0); Carbon Dioxide 19.2 mmol/L (21.0-32.0); Chloride 108 mmol/L (98-108); Globulin 2.9 g/dL (2.2-4.2); Glucose 90 mg/dL (70-99); Potassium 4.1 mmol/L (3.3-5.1)
[2024-12-15 13:48] LABS: Cholesterol 134 mg/dL (<=200); Low Density Lipoprotein Calc. 48 mg/dL; Triglycerides 252 mg/dL; Very Low Density Lipoprotein 50 mg/dL (5-40); cholesterol:hdl ratio screen 3.81
== END | disposition home or self-care (01) ==
LOC: MFPLAB 10:05
PROVIDERS: PCP Family Medicine; Referring Provider Family Medicine; Visit Provider Family Medicine
DX: E11.9 Type 2 diabetes mellitus without complications (principal)
CPT/HCPCS: 36415; 80053; 80061

== ENCOUNTER → 2025-01-05 | Outpatient (CLI) | payer MEDICARE, SELFPAY | END | disposition home or self-care (01) | LOC: LABSPEC 16:41 | PROVIDERS: PCP Family Medicine; Visit Provider Family Medicine | DX: R30.9 Painful micturition, unspecified (principal) | CPT/HCPCS: 87086; 87088; 87186 ==

== ENCOUNTER → 2025-02-11 | Outpatient (CLI) | payer MEDICARE, SELFPAY | END | disposition home or self-care (01) | LOC: LABSPEC 11:22 | PROVIDERS: PCP Family Medicine; Visit Provider Family Medicine | DX: N39.0 Urinary tract infection, site not specified (principal) | CPT/HCPCS: 87086 ==

== ENCOUNTER → 2025-05-02 | Outpatient (CLI) | payer MEDICARE, SELFPAY ==
[2025-05-02 12:34] LABS: AST(SGOT) 24 U/L (<=37); Alanine Aminotransfer ALT/SGPT 23 U/L (<=46); Albumin, Serum 4.1 g/dL (3.5-5.0); Alkaline Phosphatase 109 U/L (40-129); Anion Gap 11 (7-18); BUN 15 mg/dL (4-19); BUN/Creat Ratio 7.6 RATIO (10-20); Calcium,Total 9.6 mg/dL (7.6-11.0); Carbon Dioxide 23.9 mmol/L (20.0-29.0); Chloride 105 mmol/L (96-106); Globulin 2.8 g/dL (2.2-4.2); Glucose 143 mg/dL (70-99); Potassium 4.3 mmol/L (3.5-5.1)
== END | disposition home or self-care (01) ==
LOC: MFPLAB 10:08
PROVIDERS: PCP Family Medicine; Visit Provider Family Medicine
DX: I10 Essential (primary) hypertension (principal); E11.9 Type 2 diabetes mellitus without complications
CPT/HCPCS: 36415; 80053; 83036